=== PATIENT | female | born 1945 | race Caucasian/White ===

== ENCOUNTER 2025-05-01 11:25 | Emergency (ER) | payer MEDICARE, SELFPAY ==
[2025-05-01 11:29] VITALS: BP 137/42; PULSE 57; TEMP 36.6; O2SAT 96; BMI 39.0
--- NOTE | 2025-05-01 11:41 | ED.GENADUL1 ---
HPI HPI - General Adult General Chief complaint: Urogenital-Female Stated complaint: BLOODY URINE Time Seen by Provider: 05/01/25 11:39 Source: patient Mode of arrival: ambulance Limitations: no limitations History of Present Illness HPI narrative: 80-year-old female presents for possible blood in her urine. There was blood in the front of her brief beginning today. She has not been passing any blood in her stool. She has had a hysterectomy. She does not complain of abdominal pain. Related Data Home Medications ?Medication ?Instructions ?Recorded ?Confirmed acetaminophen 325 mg capsule 650 mg PO Q6H PRN pain 05/01/25 05/01/25 allopurinol 300 mg tablet 300 mg PO .QD 05/01/25 05/01/25 amiodarone 200 mg tablet 200 mg PO Q12H 05/01/25 05/01/25 apixaban 5 mg tablet (Eliquis) 5 mg PO Q12H 05/01/25 05/01/25 atorvastatin 80 mg tablet 80 mg PO .QHS 05/01/25 05/01/25 clopidogrel 75 mg tablet 75 mg PO QDAY 05/01/25 05/01/25 cyanocobalamin (vitamin B-12) 1,000 mcg PO DAILY 05/01/25 05/01/25 1,000 mcg capsule ferrous sulfate 325 mg (65 mg 325 mg PO DAILY 05/01/25 05/01/25 iron) tablet (FeroSul) furosemide 20 mg tablet 20 mg PO DAILY 05/01/25 05/01/25 hydrocodone 5 mg-acetaminophen 325 1 tab PO BID PRN pain 05/01/25 05/01/25 mg tablet insulin degludec 100 unit/mL (3 20 unit subcut .qhs 05/01/25 05/01/25 mL) subcutaneous pen (Tresiba FlexTouch U-100 insulin) isosorbide mononitrate 30 mg 30 mg PO .Q24 05/01/25 05/01/25 tablet,extended release 24 hr metoprolol tartrate 25 mg tablet 12.5 mg PO Q12H 05/01/25 05/01/25 ondansetron 4 mg disintegrating 4 mg PO Q6H PRN nausea and vomiting 05/01/25 05/01/25 tablet oxybutynin chloride 5 mg 5 mg PO .QD 05/01/25 05/01/25 tablet,extended release 24 hr pantoprazole 40 mg tablet,delayed 40 mg PO QDAY 05/01/25 05/01/25 release polyethylene glycol 3350 17 17 g PO QDAY PRN constipation 05/01/25 05/01/25 gram/dose oral powder (ClearLax) pregabalin 75 mg capsule 75 mg PO .COMPLEX 05/01/25 05/01/25 semaglutide 0.25 mg or 0.5 mg (2 0.5 mg subcut QWEEK 05/01/25 05/01/25 mg/1.5 mL) subcutaneous pen injector (Ozempic) torsemide 10 mg tablet 10 mg PO QDAY 05/01/25 05/01/25 Previous Rx's ?Medication ?Instructions ?Recorded cephalexin 500 mg capsule 500 mg PO TID 7 days #21 caps 05/01/25 Allergies Allergy/AdvReac Type Severity Reaction Status Date / Time codeine Allergy Palpitation Verified 05/01/25 11:29 s sulfamethoxazole (From AdvReac Abdominal Verified 05/01/25 11:29 Bactrim) Pain trimethoprim (From Bactrim) AdvReac Abdominal Verified 05/01/25 11:29 Pain Review of Systems ROS Narrative A ten point review of systems is negative except as noted above. PFSH PFSH Social History Little interest or pleasure in doing things: not at all Feeling down, depressed, or hopeless: not at all Exam Narrative Exam Narrative: Nurses note and vital signs reviewed and patient is not hypoxic. General: The patient appears well and in no apparent distress. Patient is resting comfortably on cart. Skin: Warm, dry, no pallor noted. There is no rash noted. Head: Normocephalic, atraumatic Eye: Normal conjunctiva, no drainage Ears, Nose, Mouth, and Throat: oral mucosa is moist. Nares patent. Cardiovascular: Regular Rate and Rhythm Respiratory: Patient is in no distress, no accessory muscle use, lungs are clear to auscultation, no wheezing, rales or rhonchi GI: Soft and nontender Musculoskeletal: No joint swelling Neurological: A&O x4, normal speech Psychiatric: Cooperative Constitutional Vital Signs, click to edit/add: Last Vital Signs Temp 98 F 05/01/25 11:29 Pulse 57 L 05/01/25 11:29 Resp 16 05/01/25 11:29 BP 137/42 L 05/01/25 11:29 Pulse Ox 96 05/01/25 11:29 O2 Del Method Room Air 05/01/25 11:29 Course Vital Signs Vital signs: Vital Signs Temperature 98 F 05/01/25 11:29 Pulse Rate 57 L 05/01/25 11:29 Respiratory Rate 16 05/01/25 11:29 Blood Pressure 137/42 L 05/01/25 11:29 Pulse Oximetry 96 05/01/25 11:29 Oxygen Delivery Method Room Air 05/01/25 11:29 Temperature 98 F 05/01/25 11:29 Pulse Rate 57 L 05/01/25 11:29 Respiratory Rate 16 05/01/25 11:29 Blood Pressure 137/42 L 05/01/25 11:29 Pulse Oximetry 96 05/01/25 11:29 Oxygen Delivery Method Room Air 05/01/25 11:29 Medical Decision Making MDM Narrative Medical decision making narrative: Urinalysis shows UTI. The patient does confirm that she had a complete hysterectomy. CAT scan does not show any acute findings. She was given IV Rocephin and will be discharged back to [facility] on Keflex. Treatment diagnosis and follow-up were discussed with the patient. I do not suspect vaginal bleeding. Creatinine is elevated at 3.1. Her baseline is 2.7. Her hemoglobin is at her baseline. Differential Diagnosis Differential Diagnosis: Vaginal bleeding, UTI, hemorrhagic cystitis Lab Data Lab results reviewed: Yes I reviewed the patient's lab results Labs: Lab Results 05/01/25 05/01/25 Range/Units 11:50 11:54 WBC 9.1 (4.0-11.0) 10^3/uL RBC 2.78 L (4.20-5.40) 10^6/uL Hgb 8.2 L (12.0-16.0) g/dL Hct 25.3 L (36.0-48.0) % MCV 91.0 (81.0-99.0) fL MCH 29.5 (26.7-34.0) pg MCHC 32.4 (29.9-35.2) g/dL RDW 18.2 H (11.0-15.0) % Plt Count 251 (150-450) 10^3/uL MPV 11.9 (9.5-13.5) fL Neut % (Auto) 58.2 (43.0-75.0) % Lymph % (Auto) 31.4 (20.5-60.0) % [place] % (Auto) 7.8 (1.7-12.0) % Eos % (Auto) 1.0 (0.9-7.0) % Baso % (Auto) 0.6 (0.2-2.0) % Neut # (Auto) 5.3 (1.4-6.5) 10^3/uL Lymph # (Auto) 2.9 (1.2-3.8) 10^3/uL [place] # (Auto) 0.7 (0.3-0.8) 10^3/uL Eos # (Auto) 0.1 (0.0-0.7) 10^3/uL Baso # (Auto) 0.1 (0.0-0.1) 10^3/uL Abs Immat Gran (auto) 0.09 H (0.00-0.03) 10^3/uL Imm/Tot Granulo (auto) 1.0 H (0.0-0.5) % Sodium 130 L (136-145) mmol/L Potassium 5.2 H (3.5-5.1) mmol/L Chloride 96 L (98-107) mmol/L Carbon Dioxide 29.1 (21.0-32.0) mmol/L Anion Gap 10.1 BUN 94.0 H* (7.0-18.0) mg/dL Creatinine 3.10 H (0.55-1.02) mg/dL Est GFR ( Amer) 18 L (>=60 mL/min/1.73m^2) Est GFR (Non-Af Amer) 14 L (>=60 mL/min/1.73m^2) BUN/Creatinine Ratio 30.3 Glucose 134 H (74-106) mg/dL Calcium 8.8 (8.5-10.1) mg/dL Urine Color Lt. yellow (YELLOW) Urine Clarity Sl cloudy (CLEAR) Urine pH 6.0 (5.0-9.0) Ur Specific [place] 1.010 (1.005-1.025) Urine Protein Negative (NEG/TRACE) mg/dL Urine Glucose (UA) Negative (NEGATIVE) mg/dL Urine Ketones Negative (NEGATIVE) mg/dL Urine Occult Blood Trace-i (NEGATIVE) Urine Nitrite Positive A (NEGATIVE) Urine Bilirubin Negative (NEGATIVE) Urine Urobilinogen 0.2 (0.2-1.0) EU/dL Ur Leukocyte Esterase Small A (NEGATIVE) Urine RBC 0-2 (0-2) #/HPF Urine WBC 5-10 A (NONE SEEN) #/HPF Ur Squamous Epith Cells Rare (NONE/RARE) #/LPF Urine Crystals None seen (None Seen) #/HPF Urine Bacteria Large A (NONE SEEN) #/HPF Urine Casts Seen A (NONE SEEN) #/LPF Hyaline Casts Rare Urine Mucus None seen (NONE SEEN) Ur Culture Indicated? Yes-[facility] [place] Imaging Data CT scan - abdomen: Radiologist's impression: ITS Impressions Abdomen/Pelvis CT 05/01/25 12:28 IMPRESSION: No bowel obstruction or obstructive uropathy. No free fluid or free air. No acute intra-abdominal pathology. Renal cortical atrophy is noted. There is a 2.3 cm right adrenal nodule. Uncomplicated colonic diverticula are noted. Impression dictated by: Luis Nascimento M.D. 05/01/2025 1:31 PM Dictation Location: [place] [address] Electronically authenticated by: [id number] Y Date: 05/01/2025 13:31 Discharge Plan Discharge Chief Complaint: Urogenital-Female Clinical Impression: Urinary tract infection Patient Disposition: Home, Self-Care Time of Disposition Decision: 13:49 Condition: Good Mode of Transportation: EMS Prescriptions / Home Meds: New cephalexin 500 mg capsule 500 mg PO TID 7 Days Qty: 21 0RF No Action allopurinol 300 mg tablet 300 mg PO .QD amiodarone 200 mg tablet 200 mg PO Q12H Eliquis 5 mg tablet 5 mg PO Q12H atorvastatin 80 mg tablet 80 mg PO .QHS clopidogrel 75 mg tablet 75 mg PO QDAY ferrous sulfate [FeroSul] 325 mg (65 mg iron) tablet 325 mg PO DAILY isosorbide mononitrate 30 mg tablet extended release 24 hr 30 mg PO .Q24 furosemide 20 mg tablet 20 mg PO DAILY metoprolol tartrate 25 mg tablet 12.5 mg PO Q12H polyethylene glycol 3350 [ClearLax] 17 gram/dose powder 17 g PO QDAY PRN (Reason: constipation) oxybutynin chloride 5 mg tablet extended release 24hr 5 mg PO .QD Ozempic 0.25 mg or 0.5 mg(2 mg/1.5 mL) pen injector 0.5 mg subcut QWEEK Rx Instructions: for 4 weeks ondansetron 4 mg tablet,disintegrating 4 mg PO Q6H PRN (Reason: nausea and vomiting) hydrocodone-acetaminophen 5-325 mg tablet 1 tab PO BID PRN (Reason: pain) pantoprazole 40 mg tablet,delayed release (DR/EC) 40 mg PO QDAY pregabalin 75 mg capsule 75 mg PO .COMPLEX Rx Instructions: 75 mg orally 3 xdaily, 150mg at bedtime; torsemide 10 mg tablet 10 mg PO QDAY insulin degludec [Tresiba FlexTouch U-100] 100 unit/mL (3 mL) insulin pen 20 unit subcut .qhs cyanocobalamin (vitamin B-12) 1,000 mcg capsule 1,000 mcg PO DAILY acetaminophen 325 mg capsule 650 mg PO Q6H PRN (Reason: pain) Print Language: Yoruba Instructions: Urinary Tract Infection in Women (ED) Referrals: [facility] [Primary Care Provider, Unknown] - 1 week
[2025-05-01 12:01] LABS: Glucose Urine UA NEGATIVE (NEGATIVE)
[2025-05-01 12:02] LABS: Hematocrit 25.3 % (36.0-48.0); Hemoglobin 8.2 g/dL (12.0-16.0); Immature Granulocytes Abs Auto 0.09 10^3/uL (0.00-0.03); Immature Granulocytes Pct Auto 1.0 % (0.0-0.5); Lymphocytes Absolute Auto 2.9 10^3/uL (1.2-3.8); Mean Corpuscular HGB Conc 32.4 g/dL (29.9-35.2); Mean Corpuscular Hemoglobin 29.5 pg (26.7-34.0); Mean Corpuscular Volume 91.0 fL (81.0-99.0); Platelet Count 251 10^3/uL (150-450); Red Blood Count 2.78 10^6/uL (4.20-5.40); White Blood Count 9.1 10^3/uL (4.0-11.0)
--- NOTE | 2025-05-01 12:02 | PC.NURSE ---
pt currently in [place] for a recent fall and a subdural hematoma to her head. pt is AxOx4. Fall was 04/14. Noticed blood in brief since this morning when aids were helping her change.
[2025-05-01 12:11] LABS: Anion Gap 10.1; Calcium 8.8 mg/dL (8.5-10.1); Carbon Dioxide 29.1 mmol/L (21.0-32.0); Chloride 96 mmol/L (98-107); Estimated GFR (African America 18 (>=60 mL/min/1.73m^2); Estimated GFR (Non-African Ame 14 (>=60 mL/min/1.73m^2); Glucose 134 mg/dL (74-106); Potassium 5.2 mmol/L (3.5-5.1); Sodium 130 mmol/L (136-145)
[2025-05-01 12:14] LABS: Blood Urea Nitrogen 94.0 mg/dL (7.0-18.0)
[2025-05-01 12:17] LABS: Cast Seen? SEEN #/LPF (NONE SEEN); Crystals Seen? None Seen #/HPF (None Seen); Urine Culture Indicated YES-FRMC
--- NOTE | 2025-05-01 12:28 | CT_ITS ---
The [address] [address] Patient Name: MACY ACHARYA MRN: [id number] date: 1945 Sex: F Assigned Patient Location: ER Current Patient Location: ER Accession/Order Number: [id number] Exam Date: 05/01/2025 13:19 Report Date: 05/01/2025 13:31 At the request of: SHAYNA GUERRA MD Procedure: CT abdomen pelvis wo con CT abdomen pelvis wo con 05/01/2025 12:47 PM SIGNS AND SYMPTOMS: Vaginal bleeding, hematuria TECHNIQUE: Multidetector ct axial images of the abdomen and pelvis were obtained without IV contrast. Multiplanar reformats were performed and reviewed to further define anatomy and possible pathology. CT was performed with one or more of the following dose reduction techniques: Automated exposure control, adjustment of the mA and/or kV according to patient size, or use of iterative reconstruction technique. COMPARISON: None. FINDINGS: Lower Chest: Atherosclerotic changes are noted in the coronary arteries and thoracic aorta. There is an atelectasis in the lung bases. ABDOMEN: Liver: Calcified granulomas are noted in the liver. Bile Ducts: Normal caliber. Gallbladder: Previously removed. Pancreas: Within normal limits. Spleen: Calcified granulomas are present in the spleen. Adrenals: There is a 2.3 cm right adrenal nodule. Kidneys: Renal cortical atrophy is noted. Vascular calcifications are noted in the renal pelvis bilaterally. Pelvis: Reproductive Organs: No pelvic masses. Ureters: Within normal limits. Bladder: Within normal limits. Bowel: Uncomplicated colonic diverticula are noted. Mesenteric Lymph Nodes: No enlarged mesenteric lymph nodes. Peritoneum: No ascites or free air, no fluid collection. Vessels: Atherosclerotic changes are noted in the abdominal aorta and its branches. Retroperitoneum: Within normal limits. Abdominal Wall: Postoperative changes are noted suggesting prior hernia repair along the ventral wall of the lower abdomen. Bones: Degenerative changes are noted in the thoracolumbar spine. Degenerative changes are noted in the hips and sacral iliac joints. CT/CT abdomen pelvis wo con IMPRESSION: No bowel obstruction or obstructive uropathy. No free fluid or free air. No acute intra-abdominal pathology. Renal cortical atrophy is noted. There is a 2.3 cm right adrenal nodule. Uncomplicated colonic diverticula are noted. Impression dictated by: Luis Nascimento M.D. 05/01/2025 1:31 PM Dictation Location: [place] [address] Electronically authenticated by: [id number] Y Date: 05/01/2025 13:31
== END 2025-05-01 15:40 | disposition home or self-care (01) ==
PROVIDERS: Emergency Provider Emergency Medicine
DX: N39.0 Urinary tract infection, site not specified (principal); Z90.710 Acquired absence of both cervix and uterus
CPT/HCPCS: 36415; 74176; 80048; 81001; 85025; 87086; 87088; 87186; 96365; 99285; J0696

== ENCOUNTER 2025-05-20 07:24 | Inpatient (IN) | payer MEDICARE, SELFPAY ==
--- OUTSIDE RECORDS SUMMARY | 2025-01-25 09:21 | XMS_ITS ---
Author Organization [facility] in [place] Address [address] [place] [address] Care Team Providers Care Career Services Manager Name Role Phone Lucy Hutchins Primary Care Provider Unavail Triston Spears Chaim [phone] REASON FOR VISIT medication Refill Medications Medication SIG (Take, Route, Frequency, Duration) Notes Start Date End Date Status Ferrous Sulfate 325 (65 Fe) MG 1 tablet Orally Once a day for 30 days 05/21/2022 Active Encounters Encounter Location Date Provider Diagnosis [facility] [place] [address] [place] [id number] 01/25/2025 Triston Ramirez Chronic kidney disease, stage 4 (severe) N18.4 Assessments Encounter Date Diagnosis (ICD Code) Assessment Notes Treatment Notes Treatment Clinical Notes Section Notes 01/25/2025 Chronic kidney disease, stage 4 (severe) (ICD-10 - N18.4) Plan Of Treatment Medication Medication Name Sig Start Date Stop Date Notes Ferrous Sulfate 325 (65 Fe) MG 1 tablet Orally Once a day for 30 days 05/21/2022 Progress Notes * Irma CACERES LDOB: [birth year] (79 yo F)Acc No.[id number]:01/25/2025 Patient: Irma CHACON Angela :1945 A ge:79 Y S ex:Female Address:[address] [place] [address], [phone] * Refills Refill Ferrous Sulfate Tablet, 325 (65 Fe) MG, Orally, 30, 1 tablet, Once a day, 30 days, Refills=5 * true * Date: Generated for Morgan johnson/Medardo/Panda on: 0 05/20/2025 07:32 AM EDT
--- OUTSIDE RECORDS SUMMARY | 2025-05-02 20:05 | XMS_ITS | Encounter Summary ---
Author Organization [employer] Address [facility]-[id number] [address] [place] [address] Care Team Providers Care Lead Project Engineer Name Role Phone Dagmar Hernandez Primary Care Pro vider Reason for Referral * Misc (Routine) - Pending Review Specialty Diagnoses / Procedures Referred By Contac t Referred To Contact Procedures Wound care (specify) Marylin Dewey APRN-CNP [address] [place] [address] Phone: tel: fax: Referral ID Status Reason Start Date Expiration Date V isits Requested Visits Authorized [id number] Pending Review 05/11/2025 05/11/2026 1 1 * Misc (Routine) - Pending Review Specialty Diagnoses / Procedures Referred By Contac t Referred To Contact Procedures Wound care (specify) Marylin Dewey APRN-CNP [address] [place] [address] Phone: tel: fax: Referral ID Status Reason Start Date Expiration Date V isits Requested Visits Authorized [id number] Pending Review 05/11/2025 05/11/2026 1 1 * Misc (Routine) - Pending Review Specialty Diagnoses / Procedures Referred By Jj t Referred To Contact Procedures Discharge follow-up Vandana John APRN-CNP [address] [place] [address] Phone: tel: fax: Referral ID Status Reason Start Date Expiration Date V isits Requested Visits Authorized [id number] Pending Review 05/11/2025 05/11/2026 1 1 * Misc (Routine) - Pending Review Specialty Diagnoses / Procedures Referred By Jj anthony Referred To Contact Diagnoses Urinary retention Stage 3b chronic kidney disease (CKD) ([facility]) Procedures Maintain indwelling urinary catheter Vandana John APRN-CNP [address], [address] [place] [address] Phone: tel: fax: Referral ID Status Reason Start Date Expiration Date V isits Requested Visits Authorized [id number] Pending Review 05/11/2025 05/11/2026 1 1 * Consultation (Routine) - Pending Review Specialty Diagnoses / Procedures Referred By Jj t Referred To Contact Diagnoses Urinary retention Type 2 diabetes mellitus with diabetic polyneuropathy, with long-term current use of insulin ([facility]) Vandana John APRN-CNP [address] [place] [address] Phone: tel: fax: Referral ID Status Reason Start Date Expiration Date V isits Requested Visits Authorized [id number] Pending Review 05/11/2025 05/11/2026 1 1 * Misc (Routine) - Pending Review Specialty Diagnoses / Procedures Referred By Contac t Referred To Contact Procedures Discharge Follow-Up Vandana John APRN-CNP [address], [address] [place] [address] Phone: tel: fax: Referral ID Status Reason Start Date Expiration Date V isits Requested Visits Authorized [id number] Pending Review 05/11/2025 05/11/2026 1 1 * Misc (Routine) - Pending Review Specialty Diagnoses / Procedures Referred By Contac t Referred To Contact Procedures Discharge Follow-Up Vandana John APRN-CNP [address], [address] [place] [address] Phone: tel: fax: Referral ID Status Reason Start Date Expiration Date V isits Requested Visits Authorized [id number] Pending Review 05/11/2025 05/11/2026 1 1 * Misc (Routine) - Pending Review Specialty Diagnoses / Procedures Referred By Contac t Referred To Contact Procedures Discharge Follow-Up Vandana John APRN-CNP [address] [place] [address] Phone: tel: fax: Referral ID Status Reason Start Date Expiration Date V isits Requested Visits Authorized [id number] Pending Review 05/11/2025 05/11/2026 1 1 * Misc (Routine) - Pending Review Specialty Diagnoses / Procedures Referred By Contac t Referred To Contact Diagnoses Urinary retention Procedures Follow-up with primary care provider Vandana John APRN-CNP [address] [place] [address] Phone: tel: fax: Referral ID Status Reason Start Date Expiration Date V isits Requested Visits Authorized [id number] Pending Review 05/11/2025 05/11/2026 1 1 * Misc (Routine) - Pending Review Specialty Diagnoses / Procedures Referred By Jj t Referred To Contact Procedures Adult diet Vandana John APRN-CNP [address] [place] [address] Phone: tel: fax: Referral ID Status Reason Start Date Expiration Date V isits Requested Visits Authorized [id number] Pending Review 05/11/2025 05/11/2026 1 1 * Occupational Therapy (Routine) - Pending Review Specialty Diagnoses / Procedures Referred By Jj t Referred To Contact Occupational Therapy Diagnoses Polyneuropathy Vandana John APRN-CNP [address] [place] [address] Phone: tel: fax: Referral ID Status Reason Start Date Expiration Date Visits Requested Visits Authorized [id number] Pending Review Specialty Services Required 05/11/2025 11/10/2025 12 12 * Physical Therapy (Routine) - Pending Review Specialty Diagnoses / Procedures Referred By Contac t Referred To Contact Rehabilitation Diagnoses Polyneuropathy Vandana John APRN-CNP [address] [place] [address] Phone: tel: fax: Referral ID Status Reason Start Date Expiration Date Visits Requested Visits Authorized [id number] Pending Review Specialty Services Required 05/11/2025 11/10/2025 12 12 * Consultation (Routine) - Pending Review Specialty Diagnoses / Procedures Referred By Jj t Referred To Contact Cardiology Diagnoses Paroxysmal atrial fibrillation ([facility]) ASCVD (arteriosclerotic cardiovascular disease) Vandana John APRN-CNP [address] [place] [address] Phone: tel: fax: [facility] [address] [address] Phone: tel: fax: Referral ID Status Reason Start Date Expiration Date Visits Requested Visits Authorized [id number] Pending Review Specialty Services Required 05/11/2025 05/11/2026 1 1 * Misc (Routine) - Pending Review Specialty Diagnoses / Procedures Referred By Jj t Referred To Contact Procedures Discharge Follow-Up Bethanie Marquez APRN-CNP [address] [place] [address] Phone: tel: fax: Referral ID Status Reason Start Date Expiration Date V isits Requested Visits Authorized [id number] Pending Review 05/07/2025 05/07/2026 1 1 * Consultation (Routine) - Pending Review Specialty Diagnoses / Procedures Referred By Jj t Referred To Contact Urology Diagnoses Urinary retention Bethanie Marquez APRN-CNP [address] [place] [address] Phone: tel: fax: Kayden Sun MD [address] [place] [address] [place] [address] Phone: tel: fax: Referral ID Status Reason Start Date Expiration Date Visits Requested Visits Authorized [id number] Pending Review Specialty Services Required 05/07/2025 05/07/2026 1 1 * Consultation (Routine) - Pending Review Specialty Diagnoses / Procedures Referred By Contac t Referred To Contact General Surgery Diagnoses Acute upper GI bleed Bethanie Marquez APRN-CNP [address] [place] [address] Phone: tel: fax: Kelvin Myles MD [address] [place] [address] Phone: tel: fax: Referral ID Status Reason Start Date Expiration Date Visits Requested Visits Authorized [id number] Pending Review Specialty Services Required 05/07/2025 05/07/2026 1 1 * Misc (Routine) - Pending Review Specialty Diagnoses / Procedures Referred By Contac t Referred To Contact Diagnoses Acute upper GI bleed Procedures Follow-up with primary care provider Bethanie Marquez APRN-CNP [address] [place] [address] Phone: tel: fax: Referral ID Status Reason Start Date Expiration Date V isits Requested Visits Authorized [id number] Pending Review 05/07/2025 05/07/2026 1 1 Reason for Visit * Reason Comments Weakness - Generalized Fatigue * Auth/Cert Specialty Diagnoses / Procedures Referred By Contac t Referred To Contact Diagnoses Weakness Acute upper GI bleed [facility] [address] [address] Phone: tel: fax: Referral ID Status Reason Start Date Expiration Date Visits Re quested Visits Authorized [id number] 1 1 Encounter Details Date Type Department Care Team (Latest Contact Info) Description 05/02/2025 8:05 PM EDT - 05/11/2025 3:00 PM EDT Hospital Encounter [facility] [address] [address] Yvette Watson, DO [address] [facility] [address] Jose Balderas MD [address] [facility] [address] [place] [id number] Laina Rome MD [address] [facility] [address] [place], [place] [id number] Wesly Morse MD [address], [facility] [address] [place] [address] Acute upper GI bleed (Primary Dx); ERNESTINE (acute kidney injury); Hyperkalemia; Transaminitis; Urinary retention; Vitamin B12 deficiency; Polyneuropathy; Stage 3b chronic kidney disease (CKD) ([facility]); Paroxysmal atrial fibrillation ([facility]); ASCVD (arteriosclerotic cardiovascular disease); Type 2 diabetes mellitus with diabetic polyneuropathy, with long-term current use of insulin ([facility]) Discharge Disposition: Half-Way Facility-Medicare Cert Social History Tobacco Use Types Packs/Day Years Used Date Smoking Tobacco: Former Cigarettes 0.5 10 1 975 - 1984 Smokeless Tobacco: Never Alcohol Use Standard Drinks/Week Comments Not Currently 0 (1 standard drink = 0.6 oz pur e alcohol) [facility] Utilities Answer Date Recorded In the past 12 months has [employer], gas, oil, or water [employer] threatened to shut off services in your home? No 05/03/2025 AUDIT-C Answer Date Recorded Q1: How often do you have a drink containing alcohol? Never 04/08/2025 Q2: How many drinks containi ng alcohol do you have on a typical day when you are drinking? Patient does not drink Q3: How often do you have si x or more drinks on one occasion? Never 04/08/2025 Overall Financial Resource Strain (CARDIA) Answe r Date Recorded How hard is it for you to pa y for the very basics like food, housing, medical care, and heating? Somewhat hard 05/02/2025 PHQ-2 Answer Date Recorded Total Score 2 04/08/2025 Exercise Vital Sign Answer Date Recorde d On average, how many days pe r week do you engage in moderate to strenuous exercise (like a brisk walk)? 0 days 09/19/2024 On average, how many minutes do you engage in exercise at this level? 0 min 09/19/2024 PRAPARE - Transportation Answer Date Re corded In the past 12 months, has l ack of transportation kept you from medical appointments or from getting medications? Yes 11/2024 In the past 12 months, has l ack of transportation kept you from meetings, work, or from getting things needed for daily living? Yes 05/02/2025 Housing Instability Answer Date Recorde d Are you worried or concerned that in the next two months you may not have stable housing that you own, rent or stay in as a part of a household? No 05/02/2025 Childcare Answer Date Recorded Childcare Unknown 03/11/2019 Employment Answer Date Recorded Employment Unknown 03/11/2019 Hunger Screening Answer Date Recorded Within the past 12 months we worried whether our food would run out before we got money to buy more. Never True 05/03/2025 Within the past 12 months th e food we bought just didn't last and we didn't have money to get more. Never True 05/03/2025 Purpose - Life Answer Date Recorded Purpose and direction in life Unknown Comments No Sex and Gender Information Value Date Recorded Sex Assigned at Not on file Legal Sex Female 11:23 AM EDT Gender Identity Not on file Sexual Orientation Not on file documented as of this encounter Last Filed Vital Signs Vital Sign Reading Time Taken Comments Blood Pressure 148/61 05/11/2025 11:46 AM EDT Pulse 56 05/11/2025 11:46 AM EDT Temperature 36.6 C (97.8 F) 05/11/2025 11:46 AM EDT Respiratory Rate 18 05/11/2025 11:4 6 AM EDT Oxygen Saturation 99% 05/11/2025 11: 46 AM EDT Inhaled Oxygen Concentration - - Weight 94.8 kg (208 lb 14.4 oz) 05/09/2025 5:00 AM EDT Height 157.5 cm (5' 2 ) 05/05/2025 1:36 PM EDT Body Mass Index 38.21 05/05/2025 1:36 PM EDT documented in this encounter Functional Status documented as of this encounter Discharge Summaries * Wesly Morse MD - 05/11/2025 10:44 AM EDT Images from the original note were not included. [facility] [address] [place] [id number] Hospital Medicine Discharge Summary Patient: Irma Caceres Date of : 1945 Room: Encounter date: 05/11/25 Hospital Day: 10 DATE OF ADMISSION: 05/02/2025 DATE OF DISCHARGE:05/11/2025 DISCHARGE DIAGNOSES Principal Problem: Acute upper GI bleed Active Problems: Hypertension Type 2 diabetes mellitus with diabetic polyneuropathy, with long-term current use of insulin ([facility]) Vitamin B12 deficiency Hyperlipidemia Hyperkalemia Weakness Paroxysmal atrial fibrillation ([facility]) Iron deficiency anemia due to chronic blood loss Vaginal bleeding Left lower lobe pulmonary infiltrate Acute kidney injury superimposed on stage 3b chronic kidney disease ([facility]) Pressure ulcer of left heel, stage 1 Dermatitis associated with moisture Acute on chronic combined systolic and diastolic congestive heart failure ([facility]) [employer]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 Biopsies were taken with a cold forceps for histology. Estimated blood loss was minimal. Findings: - Scattered diverticula were found in the sigmoid colon.- The exam was otherwise without abnormality EGD The examined duodenum was normal. Findings: - The esophagus was normal. - Multiple small fundicgland polyps with no bleeding and stigmata of recent bleeding were found in the gastric body and inthe gastric antrum. - A medium- sized, fungating, non-circumferential mass with no bleeding and no stigmata of recent bleeding was found in the gastric body. 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 Biopsies were taken with a cold forceps for histology. HOSPITAL COURSE SUMMARY Ms. Irma Caceres is a pleasant 80-year-old female who came in with complaints of fatigue. Patientwas recently discharged after having a fall from a urinary tract infection. Hemoglobin was 7.4 hematocrit 22.6. Patient was noted to have a left front scalp hematoma secondary to fall. There was alsonoted severe aortic iliac and mesenteric atherosclerotic changes. There was a concern around GI blee d as her occult was positive and she was having new black stool at home. Patient was admitted in had EGD and colonoscopy results are above. Blood thinners are on hold last dose was 05/02/[address] Protonix drip is okay to resume p.o. at discharge. H&H is stable awaiting gastric massnoted on EGD per pathology will need follow up with Dr. Myles at time of discharge vaginal bleeding i nitially abdomen and pelvis ultrasound completed unremarkable. Patient did have Flomax started in urology follow up will be needed as patient will be discharging with [facility]. Patient was also treated with antibiotics for left lower pneumonia while here. PT and OT seen recommended retirement facility and agreeable. Patient stayed over the weekend waiting for insurance approval. Stable to discharge to nursing facility will need close follow up with general surgeon swimmer and Urology. Multiple medication changes at time of discharge including Flomax urology referral decrease amiodarone to 200 mg daily per Cardiology if LFTs remain elevated will possibly need did discontinue Lasix 40 mg daily Eliquis stopped hold statin while LFTs are up decrease Lyrica dose PPI b.I.d. for 5 moredays then decrease to daily general surgery referral to follow up on EGD [facility] referral to follow up on urinary retention cardiology referral to follow up on multiple medication changes CBC CMP in 1 week PT OT and Nephrology 1-2 weeks. Did check venous Dopplers while here and there was were negative. Discuss plan with Cardiology and will do Plavix only until follow up on pathology from [facility]. Review of Systems Constitutional: Positive for malaise/fatigue. Negative for chills, decreased appetite, diaphoresis and fever. HENT: Negative for congestion. Cardiovascular: Positive for leg swelling. Negative for chest pain, dyspnea on exertion and palpitations. Respiratory: Negative for cough, shortness of breath, sputum production and wheezing. Hematologic/Lymphatic: Bruises/bleeds easily. Skin: Positive for dry skin. Negative for poor wound healing. Musculoskeletal: Positive for arthritis. Negative for back pain and falls. Gastrointestinal: Negative for bloating, abdominal pain, dysphagia, nausea and vomiting. Genitourinary: Negative for bladder incontinence. Neurological: Positive for excessive daytime sleepiness and weakness. Negative for dizziness, paresthesias and tremors. Psychiatric/Behavioral: Negative for altered mental status and memory loss. Physical Exam Vitals (on RA) and nursing note reviewed. Constitutional: General: She is not in acute distress. Appearance: Normal appearance. She is obese. She is ill-appearing (pale). She is not toxic-appearing or diaphoretic. HENT: Head: Normocephalic and atraumatic. Nose: Nose normal. Mouth/Throat: Mouth: Mucous membranes are moist. Eyes: Pupils: Pupils are equal, round, and reactive to light. Cardiovascular: Rate and Rhythm: Normal rate and regular rhythm. Pulses: Normal pulses. Heart sounds: Normal heart sounds. Pulmonary: Effort: Pulmonary effort is normal. No respiratory distress. Breath sounds: Normal breath sounds. No wheezing or rales. Abdominal: General: Bowel sounds are normal. There is no distension. Palpations: Abdomen is soft. Tenderness: There is no abdominal tenderness. Musculoskeletal: Cervical back: Normal range of motion and neck supple. Right lower leg: Edema (2+) present. Left lower leg: Edema (2+) present. Skin: General: Skin is warm and dry. Capillary Refill: Capillary refill takes 2 to 3 seconds. Coloration: Skin is pale. Findings: Bruising (scattered) present. Comments: Scattered abrasions left side of face bruising Knee abrasions Right lower leg dressing intact got caught on w/c Neurological: Mental Status: She is alert and oriented to person, place, and time. Mental status is at baseline. Sensory: No sensory deficit. Motor: Weakness present. Gait: Gait normal. Psychiatric: Mood and Affect: Mood normal. Behavior: Behavior normal. Thought Content: Thought content normal. Judgment: Judgment normal. Sepsis suspected, no-not clinically evident at this time. Code Status: Full Code Labs Recent Results (from the past 48 hours) Bedside Glucose *Place/Obtain serum glucose if >500 per glucometer. Collection Time: 05/09/25 4:34 PM Result Value Ref Range Bedside Glucose (POC) 173 (H) 65 - 99 mg/dL Bedside Glucose *Place/Obtain serum glucose if >500 per glucometer. Collection Time: 05/09/25 8:51 PM Result Value Ref Range Bedside Glucose (POC) 122 (H) 65 - 99 mg/dL Comprehensive metabolic panel Collection Time: 05/10/25 5:32 AM Result Value Ref Range SODIUM 136 134 - 146 mmol/L POTASSIUM 4.6 3.5 - 5.0 mmol/L CHLORIDE 105 98 - 109 mmol/L CARBON DIOXIDE 24 22 - 32 mmol/L ANION GAP 7 5 - 15 mmol/L BLOOD UREA NITROGEN 32 (H) 5 - 27 mg/dL CREATININE 1.77 (H) 0.40 - 1.00 mg/dL GLUCOSE 110 (H) 65 - 99 mg/dL CALCIUM 8.6 8.5 - 10.5 mg/dL TOTAL PROTEIN 4.8 (L) 6.0 - 8.0 g/dL ALBUMIN 2.4 (L) 3.2 - 5.3 g/dL ALKALINE PHOSPHATASE 124 39 - 130 U/L AST 74 (H) <=41 U/L ALT 69 (H) <=31 U/L BILIRUBIN,TOTAL 0.8 0.3 - 1.2 mg/dL EGFR Non-Race Dependent 29 (L) >=60 ml/min/1.73sq.m Magnesium Collection Time: 05/10/25 5:32 AM Result Value Ref Range MAGNESIUM 1.8 1.8 - 2.6 mg/dL CBC auto differential Collection Time: 05/10/25 5:32 AM Result Value Ref Range WBC 4.5 4 - 11 x10E9/L RBC Count 2.59 (L) 3.8 - 5.2 X10E12/L Hemoglobin 7.5 (L) 11.7 - 15.5 g/dL Hematocrit 22.5 (L) 35 - 47 % MCV 87 80 - 100 fL MCH 29.1 27 - 34 pg MCHC 33.5 32 - 36 g/dL RDW 19.8 (H) 11.5 - 15 % Platelet Count 198 150 - 450 X10E9/L MPV 9.9 7 - 12 fL Neutrophils % 56.6 % Lymphocytes % 30.5 % Monocytes % 9.6 % Eosinophils % 2.2 % Basophils % 1.1 % Neutrophils Absolute (A) 2.6 1.5 - 6.6 10*3/uL Lymphocytes Absolute 1.4 1.0 - 3.5 10*3/uL Monocytes Absolute 0.4 0.0 - 0.9 10*3/uL Eosinophils Absolute 0.1 0.0 - 0.4 10*3/uL Basophils Absolute 0.0 0.0 - 0.2 10*3/uL Differential Type AUTOMATED DIFFERENTIAL Anti XA unfractionated heparin Collection Time: 05/10/25 5:32 AM Result Value Ref Range ANTI XA UFH 0.37 0.30 - 0.70 IU/mL B-type natriuretic peptide Collection Time: 05/10/25 5:32 AM Result Value Ref Range BNP 428 (H) <=100 pg/mL Bedside Glucose *Place/Obtain serum glucose if >500 per glucometer. Collection Time: 05/10/25 11:40 AM Result Value Ref Range Bedside Glucose (POC) 219 (H) 65 - 99 mg/dL Magnesium Collection Time: 05/10/25 4:00 PM Result Value Ref Range MAGNESIUM 2.3 1.8 - 2.6 mg/dL Bedside Glucose *Place/Obtain serum glucose if >500 per glucometer. Collection Time: 05/10/25 5:57 PM Result Value Ref Range Bedside Glucose (POC) 265 (H) 65 - 99 mg/dL Bedside Glucose *Place/Obtain serum glucose if >500 per glucometer. Collection Time: 05/10/25 9:22 PM Result Value Ref Range Bedside Glucose (POC) 135 (H) 65 - 99 mg/dL Comprehensive metabolic panel Collection Time: 05/11/25 4:37 AM Result Value Ref Range SODIUM 133 (L) 134 - 146 mmol/L POTASSIUM 4.5 3.5 - 5.0 mmol/L CHLORIDE 101 98 - 109 mmol/L CARBON DIOXIDE 25 22 - 32 mmol/L ANION GAP 7 5 - 15 mmol/L BLOOD UREA NITROGEN 34 (H) 5 - 27 mg/dL CREATININE 2.02 (H) 0.40 - 1.00 mg/dL GLUCOSE 110 (H) 65 - 99 mg/dL CALCIUM 8.6 8.5 - 10.5 mg/dL TOTAL PROTEIN 4.9 (L) 6.0 - 8.0 g/dL ALBUMIN 2.7 (L) 3.2 - 5.3 g/dL ALKALINE PHOSPHATASE 120 39 - 130 U/L AST 60 (H) <=41 U/L ALT 62 (H) <=31 U/L BILIRUBIN,TOTAL 0.8 0.3 - 1.2 mg/dL EGFR Non-Race Dependent 25 (L) >=60 ml/min/1.73sq.m Magnesium Collection Time: 05/11/25 4:37 AM Result Value Ref Range MAGNESIUM 2.0 1.8 - 2.6 mg/dL CBC auto differential Collection Time: 05/11/25 4:37 AM Result Value Ref Range WBC 3.7 (L) 4 - 11 x10E9/L RBC Count 2.72 (L) 3.8 - 5.2 X10E12/L Hemoglobin 7.9 (L) 11.7 - 15.5 g/dL Hematocrit 23.6 (L) 35 - 47 % MCV 87 80 - 100 fL MCH 29.2 27 - 34 pg MCHC 33.6 32 - 36 g/dL RDW 19.6 (H) 11.5 - 15 % Platelet Count 209 150 - 450 X10E9/L MPV 9.8 7 - 12 fL Neutrophils % 54.9 % Lymphocytes % 31.1 % Monocytes % 10.7 % Eosinophils % 2.2 % Basophils % 1.1 % Neutrophils Absolute (A) 2.0 1.5 - 6.6 10*3/uL Lymphocytes Absolute 1.1 1.0 - 3.5 10*3/uL Monocytes Absolute 0.4 0.0 - 0.9 10*3/uL Eosinophils Absolute 0.1 0.0 - 0.4 10*3/uL Basophils Absolute 0.0 0.0 - 0.2 10*3/uL Differential Type AUTOMATED DIFFERENTIAL Anti XA unfractionated heparin Collection Time: 05/11/25 4:37 AM Result Value Ref Range ANTI XA UFH 0.39 0.30 - 0.70 IU/mL Bedside Glucose *Place/Obtain serum glucose if >500 per glucometer. Collection Time: 05/11/25 8:44 AM Result Value Ref Range Bedside Glucose (POC) 98 65 - 99 mg/dL Bedside Glucose *Place/Obtain serum glucose if >500 per glucometer. Collection Time: 05/11/25 11:49 AM Result Value Ref Range Bedside Glucose (POC) 208 (H) 65 - 99 mg/dL Radiology Colonoscopy Report Result Date: 05/07/2025 Narrative: This order has been auto-finalized for image and report archival in PACs. *For full report details, please reach out to your physician. This image is visible to you in MyChart.* EGD Report Result Date: 05/05/2025 Narrative: This order has been auto-finalized for image and report archival in PACs. *For full report details, please reach out to your physician. This image is visible to you in MyChart.* Ultrasound abdomen limited Result Date: 05/05/2025 Narrative: Clinical history: Elevated transaminases Findings: Multiplanar sonography was performed of the right upper quadrant. Comparison: None. * Prior cholecystectomy. * Common bile duct measures:5.9 mm * No free fluid/ascites * Liver echotexture is echogenic. * Portal vein is patent with hepatopedal flow. * Pancreas obscured by bowel gas. No definite pancreatic ductal dilatation. * No right renal obstruction . Cortical thinning consistent with patient's age. Impression: * Unremarkable right upper quadrant ultrasound Finalized by Duke Bob MD on 05/05/2025 1:44 PM Ultrasound pelvic complete Result Date: 05/03/2025 Narrative: Pelvic ultrasound History:Vaginal bleeding Comparison: Findings: Transabdominal imaging was performed of the pelvis. Patient is status post hysterectomy and bilateral oophorectomy. No freefluid in the pelvis. No definite pelvic mass. Impression: * Unremarkable transabdominal ultrasound of the pelvis. Finalized by Duke Bob MD on 05/03/2025 12:[address] abdomen and pelvis without contrast Result Date: 05/02/2025 Narrative: CLINICAL INFORMATION: elevated enzymes TECHNIQUE: CT ABDOMEN AND PELVIS WO CONT CT images of the abdomen and pelvis are obtained. Images are acquired without contrast. This produces some limitation. Comparison is made prior exam dated April 04, 2023. Limited images lung bases grossly clear. No focal hepatic or splenic abnormality. Patient is postcholecystectomy. Kidneys appear somewhat atrophic. Severe aortoiliac and mesenteric atherosclerotic changes noted. Vessels not well evaluated with this exam. Bowel is nondistended. Although bile duct appears somewhat prominent, this may represent reservoir effect secondary to remote cholecystectomy. Osseous structures appear intact. IMPRESSION: Severe aortoiliac and mesenteric atherosclerotic changes. If this is of clinical concern, contrasted exam may be helpful. All CT scans at this facility use dose modulation, iterative reconstruction, and/or weight based dosing when appropriate to reduce radiation dose to as low as reasonably achi evable. Finalized by Edward Jha MD on 05/02/2025 11:[address] brain without contrast Result Date: 05/02/2025 Narrative: STUDY: CT HEAD WITHOUT CONTRAST CLINICAL HISTORY: Patient is feeling tired today. Recentfall. COMPARISON: 04/08/2025 TECHNIQUE: CT head was performed without contrast utilizing 2.5 mm axial reconstruction with images reviewed in bone and brain windows. Automated exposure control was utilized. FINDINGS: Noncontrast CT scan examination of the brain revealed mildly prominent ventricles, cortical sulci and sylvian fissures suggesting age-appropriate mild senescent atrophic changes. Thereis no evidence of mass, mass effect or midline shift. No evidence of intracranial bleeding. Incidental note is made of hyperostosis frontalis. Small left frontal scalp hematoma. Vascular calcifications. Evidence of prior bilateral cataract surgery IMPRESSION: 1. No evidence of an acute intracranialprocess. Age-appropriate senescent atrophic changes. Left frontal scalp hematoma. All CT scans at this facility use dose modulation, iterative reconstruction, and/or weight based dosing when appropria te to reduce radiation dose to as low as reasonably achievable. Finalized by Roxanne Sears MD on 05/02/2025 8:54 PM X-ray chest 1 view Result Date: 05/02/2025 Narrative: AP single view chest dated 05/02/2025 at 8:45 PM INDICATION: Fatigue. FINDINGS: Comparisonis 04/10/2025. Enlarged cardiac/pericardiac silhouette. Left lower lobe atelectasis and/or infiltrates, not significantly changed. No edema or effusion. No pneumothorax. IMPRESSION: 1. Persistent leftlower lobe infiltrates and/or atelectasis not well evaluated on portable film. 2. Enlarged cardiac/pericardiac silhouette. 3. No edema or effusion. Finalized by Joe Novoa MD on 05/02/2025 8:52 PM Vas venous duplex lwr bilateral Result Date: 04/13/2025 Narrative: Right: Lower extremity deep veins are compressible with spontaneous phasic spectral Doppler waveforms; superficial veins are compressible without intraluminal content. Left: Lower extremity deep veins are compressible with spontaneous phasic spectral Doppler waveforms; superficial veins are compressible without intraluminal content. Conclusions: BILATERAL: NO EVIDENCE of deep or superficial vein thrombosis of the lower extremities. Recommendations: Any questions prior to finalization, please call the reading physician during normal business hours at the phone number beside their name. Ultrasound retroperitoneal complete Result Date: 04/12/2025 Narrative: ULTRASOUND RETROPERITONEUM INDICATION: Urinary retention. COMPARISON: 06/07/2021. FINDINGS: Ultrasound evaluation of the kidneys and bladder was performed. Right kidney: 10.8 cm in maximal length. No collecting system dilatation, calculi, or contour deforming mass lesion. Left kidney: 11.4cm in maximal length. No collecting system dilatation, calculi, or contour deforming mass lesion. Parenchymal thinning both kidneys. Bladder: [Layering debris urinary bladder. Bladder volume: 367 mL.Only right ureteral jet seen. Patient unable to void. IMPRESSION: 1. No stone or collecting system dilatation. 2. Urinary bladder debris. Patient unable to void. Finalized by William Patton MD on 04/12/2025 1:29 PM Vas carotid duplex bilateral Result Date: 04/11/2025 Narrative: Right: Plaque with no significant ICA spectral Doppler or color flow disturbances; ICA 76 / 15 cm/sec. Antegrade vertebral artery flow. Left: Plaque with no significant ICA spectral Doppler or color flow disturbances; ICA 92 / 20 cm/sec. Antegrade vertebral artery flow. Conclusions: BILATERAL: Plaque without significant stenosis (<50%) of the internal carotid artery. Antegrade vertebral artery flow. MR brain without contrast Result Date: 04/10/2025 Narrative: EXAM: MRI BRAIN WITHOUT CONTRAST CLINICAL HISTORY: Subacute trauma, acute nausea, vomiting. TECHNIQUE: TECHNIQUE: Routine multiplanar multisequence MR imaging of the brain was performed without contrast. COMPARISONS: CT dated 04/08/2025 FINDINGS: There is a right tentorial subdural hematoma measuring up to 0.4 cm in thickness. There is no corresponding mass effect. There is a tiny subdural hematoma overlying the right temporal lobe measuring up to 0.4 cm in thickness. There is no corresponding mass effect. There is no shift of the midline structures and the basal cisterns are widelypatent. There is no evidence of ventricular outflow obstruction. There are mild nonaggressive whitematter changes of chronic ischemic small vessel disease. The hyman-white matter differentiation is preserved. The paranasal sinuses are well aerated. There is a small amount of nonaggressive fluid in the left mastoids. IMPRESSION: 1. Redemonstration of a right tentorial subdural hematoma measuring up to 0.4 cm in thickness. There is also a trace subdural hematoma overlying the right temporal lobe measuring up to 0.4 cm in thickness. There is no mass effect. Finalized by Steve Daigle MD on 04/10/2025 9:12 PM X-ray chest 1 view Result Date: 04/10/2025 Narrative: CHEST 1 VIEW HISTORY: Shortness of breath COMPARISON: 04/08/2025 IMPRESSION: * Left basilar opacities slightly more prominent than on previous, concerning for atelectasis or pneumonia. * Nopleural effusions, pulmonary edema or pneumothorax. * Unchanged cardiomediastinal silhouette. Finalized by Natanael Mayo MD on 04/10/2025 8:35 PM DISCHARGE INSTRUCTION Disposition: care home facility Condition:Stable Activity: activity as tolerated Diet: Adult nutrition supplements Adult diet Regular Texture Adult diet Follow up: DAGMAR HERNANDEZ APRN-DWIGHT within 7-[address] Myles RESIDENTIAL CAREGIVER Urology Labs/Imaging/Pathology: CMP and CBC one week Discharge Medications: Medication List START taking these medications Instructions Last Dose Given Next Dose Due furosemide 40 mg tablet Commonly known as: LASIX Take 1 tablet (40 mg total) by mouth daily for 30 days. tamsulosin 0.4 mg capsule Commonly known as: FLOMAX Take 1 capsule (0.4 mg total) by mouth nightly. CHANGE how you take these medications Instructions Last Dose Given Next Dose Due amiodarone 200 mg tablet Commonly known as: PACERONE What changed: when to take this Take 1 tablet (200 mg total) by mouth in the morning. atorvastatin 80 mg tablet Commonly known as: LIPITOR Start taking on: May 14, 2025 What changed: additional instructions These instructions start on May 14, 2025. If you are unsure what to do until then, ask your doctor or other care provider. Take 1 tablet (80 mg total) by mouth every morning. TAKE 1 TABLET (80 MG TOTAL) BY MOUTH IN THE MORNING Hold d/t transaminitis, may resume if cmp in 1 week is normalized clopidogreL 75 mg tablet Commonly known as: PLAVIX Start taking on: May 14, 2025 What changed: additional instructions These instructions start on May 14, 2025. If you are unsure what to do until then, ask your doctor or other care provider. Take 1 tablet (75 mg total) by mouth in the morning for 30 days. Hold until biopsy results receivedfrom EGD. pantoprazole 40 mg EC tablet Commonly known as: PROTONIX Start taking on: May 11, 2025 What changed: See the new instructions. Take 1 tablet (40 mg total) by mouth 2 (two) times a day for 5 days, THEN 1 tablet (40 mg total) every morning before breakfast for 30 days. pregabalin 75 mg capsule Commonly known as: LYRICA What changed: See the new instructions. Take 1 capsule (75 mg total) by mouth in the morning and 1 capsule (75 mg total) before bedtime. Doall this for 3 days. CONTINUE taking these medications Instructions Last Dose Given Next Dose Due ACCU-CHEK OLY PLUS TEST STRP strip Generic drug: blood sugar diagnostic allopurinoL 300 mg tablet Commonly known as: ZYLOPRIM Take 1 tablet (300 mg total) by mouth in the morning. cyanocobalamin 1,000 mcg tablet, sublingual Commonly known as: VITAMIN B12 Place 1 tablet (1,000 mcg total) under the tongue in the morning. ferrous sulfate 325 (65 FE) MG tablet Take 1 tablet (325 mg total) by mouth daily with breakfast. FREESTYLE CUONG 2 SENSOR kit Generic drug: flash glucose sensor insulin lispro 100 unit/mL insulin pen Commonly known as: HumaLOG Inject under the skin. Sliding scale based on meals and blood sugar metoprolol tartrate 25 mg tablet Commonly known as: LOPRESSOR TAKE 1 TABLET BY MOUTH TWICE DAILY (MORNING AND BEFORE BEDTIME) mupirocin 2 % ointment Commonly known as: BACTROBAN Apply 1 Application topically in the morning and 1 Application before bedtime. polyethylene glycol 17 gram packet Commonly known as: GLYCOLAX Take 17 g by mouth daily as needed (constipation). TRESIBA FLEXTOUCH U-100 100 unit/mL (3 mL) insulin pen Generic drug: insulin degludec Inject 20 Units under the skin nightly. STOP taking these medications acetaminophen 650 mg 8 hr tablet Commonly known as: TYLENOL ARTHRITIS apixaban 5 mg tablet Commonly known as: ELIQUIS isosorbide mononitrate 30 mg 24 hr tablet Commonly known as: IMDUR oxybutynin XL 5 mg 24 hr tablet Commonly known as: DITROPAN-XL OZEMPIC 0.25 mg or 0.5 mg(2 mg/1.5 mL) pen injector Generic drug: semaglutide torsemide 10 mg tablet Commonly known as: DEMADEX Where to Get Your Medications These medications were sent to [facility] [address] [place] [address] [place] [address] [address] furosemide 40 mg tablet pantoprazole 40 mg EC tablet You can get these medications from any pharmacy Bring a paper prescription for each of these medications pregabalin 75 mg capsule Information about where to get these medications is not yet available Ask your nurse or doctor about these medications amiodarone 200 mg tablet atorvastatin 80 mg tablet clopidogreL 75 mg tablet tamsulosin 0.4 mg capsule >30 minutes were spent on discharging this patient. DANIELLE Brantley 05/11/2025 3:42 PM [facility] Internal Medicine 7AM-7PM & 7PM-7AM: EpicChat or page through On-Call Finder. DANIELLE Brantley 05/11/25 [id number] Physician Attestation I, Wesyl Morse MD, personally performed a face to face diagnostic evaluation on this patient. I have reviewed the note authored by the advance practice provider including history, review of systems,physical examination,medical decision making and agree with the assessment and plan as written. I have seen and evaluated the patient, I have repeated the carrillo portions of the physical exam and concur with the CLAIRE findings. I have reviewed all laboratory findings and imaging reports/films. I agree with the plan as noted. Patient with CHF, GI mass, PAF, transaminitis was admitted with GI bleed, pneumonia. Per Cardiologyrecommendation patient was started on Plavix for PAF, amiodarone dose was decreased per Cardiology recommendation due to transaminitis. Patient's hemoglobin was stable during hospital stay patient is being discharged in stable condition. Recheck CBC in 1 week. Follow up with General surgery as outpatient for stomach mass biopsy report documented in this encounter Discharge Instructions * Discharge Instructions* Laina Rome MD - 05/07/2025 5:19 PM EDT Follow up with Dr Myles t0 discuss biopsy result Follow up with PCP and cardiology Continue to hold Eliquis until biopsy result * Attachments The following attachments cannot be sent through Care Everywhere. * GI bleed ??? Discharge instructions (Pakistani) documented in this encounter Medications at Time of Discharge allopurinol (ZYLOPRIM) 300 mg tablet Take 1 tablet (300 mg total) by mouth in the morning. cyanocobalamin (VITAMIN B12) 1,000 mcg tablet, sublingual Place 1 tablet (1,000 mcg total) under the tongue in the morning. 90 tablet 3 06/28/2022 ferrous sulfate 325 (65 FE) mg tablet Take 1 tablet (325 mg total) by mouth daily with breakfast. FREESTYLE CUONG 2 SENSOR kit 11/28/2022 insulin degludec (TRESIBA FLEXTOUCH U-100) 100 unit/mL (3 mL) insulin pen Inject 20 Units under the skin nightly. insulin lispro (HumaLOG) 100 unit/mL insulin pen Inject under the skin. Sliding scale based on meals and blood sugar 03/04/2022 ACCU-CHEK OLY PLUS TEST STRP strip 03/15/2023 amiodarone (PACERONE) 200 mg tablet Take 1 tablet (200 mg total) by mouth in the morning. 05/11/2025 atorvastatin (LIPITOR) 80 mg tablet Take 1 tablet (80 mg total) by mouth every morning. TAKE 1 TABLET (80 MG TOTAL) BY MOUTH IN THE MORNING Hold d/t transaminitis, may resume if cmp in 1 week is normalized 05/14/2025 clopidogreL (PLAVIX) 75 mg tablet Take 1 tablet (75 mg total) by mouth in the morning for 30 days. Hold until biopsy results received from EGD. 05/14/2025 5 furosemide (LASIX) 40 mg tablet Take 1 tablet (40 mg total) by mouth daily for 30 days. 30 tablet 05/11/2025 metoprolol tartrate (LOPRESSOR) 25 mg tablet TAKE 1 TABLET BY MOUTH TWICE DAILY (MORNING AND BEFORE BEDTIME) 180 tablet 3 10/19/2024 mupirocin (BACTROBAN) 2 % ointment Apply 1 Application topically in the morning and 1 Application before bedtime. 03/24/2025 pantoprazole (PROTONIX) 40 mg EC tablet Take 1 tablet (40 mg total) by mouth 2 (two) times a day for 5 days, THEN 1 tablet (40 mg total) every morning before breakfast for 30 days. 40 tablet 05/11/2025 5 polyethylene glycol (GLYCOLAX) 17 gram packet Take 17 g by mouth daily as needed (constipation). 04/12/2025 tamsulosin (FLOMAX) 0.4 mg capsule Take 1 capsule (0.4 mg total) by mouth nightly. 05/07/2025 pregabalin (LYRICA) 75 mg capsuleIndicatio ns:Polyneuropath y Take 1 capsule (75 mg total) by mouth in the morning and 1 capsule (75 mg total) before bedtime. Do all this for 3 days. 6 capsule 05/11/2025 5 documented as of this encounter Progress Notes * Wesly Morse MD - 05/10/2025 3:54 PM EDT Images from the original note were not included. [facility] [address] [facility] [id number] Hospital Medicine Progress Note Patient: Irma Caceres Date of : 1945 Room: PCP: DAGMAR HERNANDEZ, [employer] MANAGER Admission date: 05/02/2025 8:05 PM Encounter date: 05/10/25 Hospital Day: 9 SUBJECTIVE Interval History: Status: unchanged. No overnight events. Remains medically stable for d/c, d/c when SNF is ready unfortunately Dopplers were ordered over the weekend and are not done yet. Patient remains on heparin drip secondary to concern for blood clot.This will determine plan of care for discharge if patient has no blood clot will go on Plavix only if patient has a blood clot will need vascular input. Unfortunately will not be able to discharge today as we do not have this venous Dopplers patient feels overall well denies any chest pain chest pressure reports her shortness of breath is improved. Review of Systems Constitutional: Positive for fatigue. Negative for chills and fever. HENT: Negative for ear pain and sore throat. Eyes: Negative for pain and visual disturbance. Respiratory: Negative for cough and shortness of breath. Cardiovascular: Negative for chest pain and palpitations. Gastrointestinal: Negative for abdominal pain, blood in stool (occult negative) and vomiting. Genitourinary: Negative for dysuria and hematuria. Musculoskeletal: Positive for arthralgias. Negative for back pain. Skin: Negative for color change and rash. Neurological: Negative for seizures and syncope. All other systems reviewed and are negative. OBJECTIVE BP 139/47 Pulse 58 Temp 36.7 ??C (98 ??F) (Oral) Resp 16 Ht 157.5 cm (5' 2 ) Wt 94.8 kg (208 lb 14.4 oz) LMP (LMP Unknown) SpO2 99% BMI 38.21 kg/m?? Temp: [36.5 ??C (97.7 ??F)-36.8 ??C (98.2 ??F)] 36.7 ??C (98 ??F) Pulse: [43-67] 58 Resp: [16-18] 16 BP: (126-139)/(42-50) 139/47 SpO2: [97 %-99 %] 99 % O2 Device: None (Room air) O2 Flow Rate (L/min): [0 L/min] 0 L/min Intake/Output Summary (Last 24 hours) at 05/10/2025 1850 Last data filed at 05/10/2025 1759 Gross per 24 hour Intake 360 ml Output 750 ml Net -390 ml Physical Exam Vitals (on Ra) and nursing note reviewed. Constitutional: Appearance: She is well-developed. She is obese. HENT: Head: Normocephalic and atraumatic. Nose: Nose normal. Eyes: Pupils: Pupils are equal, round, and reactive to light. Cardiovascular: Rate and Rhythm: Normal rate and regular rhythm. Heart sounds: Normal heart sounds. No murmur heard. Pulmonary: Effort: Pulmonary effort is normal. No respiratory distress. Breath sounds: Normal breath sounds. No wheezing. Abdominal: General: Bowel sounds are normal. Palpations: Abdomen is soft. Tenderness: There is no abdominal tenderness. Musculoskeletal: General: Normal range of motion. Cervical back: Neck supple. Right lower leg: Edema (2+) present. Left lower leg: Edema (2+) present. Lymphadenopathy: Cervical: No cervical adenopathy. Skin: General: Skin is warm and dry. Capillary Refill: Capillary refill takes 2 to 3 seconds. Coloration: Skin is pale. Findings: Bruising (left face) present. No rash. Comments: Scattered abrasions left side of face bruising Knee abrasions Right lower leg dressing intact got caught on w/c Neurological: Mental Status: She is alert and oriented to person, place, and time. Cranial Nerves: No cranial nerve deficit. Medications Scheduled: [START ON 05/11/2025] amiodarone, 200 mg, oral, Daily clopidogreL, 75 mg, oral, Daily ferrous sulfate, 325 mg, oral, Daily with breakfast insulin glargine, 15 Units, subcutaneous, Nightly insulin lispro, 2-10 Units, subcutaneous, With meals and nightly metoprolol tartrate, 25 mg, oral, BID miconazole, 1 applicator, vaginal, Nightly pantoprazole, 40 mg, oral, BID AC pregabalin, 75 mg, oral, BID AND pregabalin, 150 mg, oral, Nightly sodium chloride, 3 mL, intravenous, Q12H HUNG Infusions: dextrose 5 % in water, 100 mL/hr heparin, 300-3,500 Units/hr, Last Rate: 1,000 Units/hr (05/10/25 1619) sodium chloride 0.9 %, 20 mL/hr As Needed: acetaminophen dextrose dextrose 5 % in water dextrose 50 % in water (D50W) glucagon (human recombinant) heparin (porcine) magnesium sulfate magnesium sulfate ondansetron sodium chloride sodium chloride sodium chloride 0.9 % Allergies: Codeine, Sulfa (sulfonamide antibiotics), Sulfamethoxazole- trimethoprim, and Trimethobenzamide Code Status: Full Code Labs Recent Results (from the past 24 hours) Bedside Glucose *Place/Obtain serum glucose if >500 per glucometer. Collection Time: 05/09/25 8:51 PM Result Value Ref Range Bedside Glucose (POC) 122 (H) 65 - 99 mg/dL Comprehensive metabolic panel Collection Time: 05/10/25 5:32 AM Result Value Ref Range SODIUM 136 134 - 146 mmol/L POTASSIUM 4.6 3.5 - 5.0 mmol/L CHLORIDE 105 98 - 109 mmol/L CARBON DIOXIDE 24 22 - 32 mmol/L ANION GAP 7 5 - 15 mmol/L BLOOD UREA NITROGEN 32 (H) 5 - 27 mg/dL CREATININE 1.77 (H) 0.40 - 1.00 mg/dL GLUCOSE 110 (H) 65 - 99 mg/dL CALCIUM 8.6 8.5 - 10.5 mg/dL TOTAL PROTEIN 4.8 (L) 6.0 - 8.0 g/dL ALBUMIN 2.4 (L) 3.2 - 5.3 g/dL ALKALINE PHOSPHATASE 124 39 - 130 U/L AST 74 (H) <=41 U/L ALT 69 (H) <=31 U/L BILIRUBIN,TOTAL 0.8 0.3 - 1.2 mg/dL EGFR Non-Race Dependent 29 (L) >=60 ml/min/1.73sq.m Magnesium Collection Time: 05/10/25 5:32 AM Result Value Ref Range MAGNESIUM 1.8 1.8 - 2.6 mg/dL CBC auto differential Collection Time: 05/10/25 5:32 AM Result Value Ref Range WBC 4.5 4 - 11 x10E9/L RBC Count 2.59 (L) 3.8 - 5.2 X10E12/L Hemoglobin 7.5 (L) 11.7 - 15.5 g/dL Hematocrit 22.5 (L) 35 - 47 % MCV 87 80 - 100 fL MCH 29.1 27 - 34 pg MCHC 33.5 32 - 36 g/dL RDW 19.8 (H) 11.5 - 15 % Platelet Count 198 150 - 450 X10E9/L MPV 9.9 7 - 12 fL Neutrophils % 56.6 % Lymphocytes % 30.5 % Monocytes % 9.6 % Eosinophils % 2.2 % Basophils % 1.1 % Neutrophils Absolute (A) 2.6 1.5 - 6.6 10*3/uL Lymphocytes Absolute 1.4 1.0 - 3.5 10*3/uL Monocytes Absolute 0.4 0.0 - 0.9 10*3/uL Eosinophils Absolute 0.1 0.0 - 0.4 10*3/uL Basophils Absolute 0.0 0.0 - 0.2 10*3/uL Differential Type AUTOMATED DIFFERENTIAL Anti XA unfractionated heparin Collection Time: 05/10/25 5:32 AM Result Value Ref Range ANTI XA UFH 0.37 0.30 - 0.70 IU/mL B-type natriuretic peptide Collection Time: 05/10/25 5:32 AM Result Value Ref Range BNP 428 (H) <=100 pg/mL Bedside Glucose *Place/Obtain serum glucose if >500 per glucometer. Collection Time: 05/10/25 11:40 AM Result Value Ref Range Bedside Glucose (POC) 219 (H) 65 - 99 mg/dL Magnesium Collection Time: 05/10/25 4:00 PM Result Value Ref Range MAGNESIUM 2.3 1.8 - 2.6 mg/dL Bedside Glucose *Place/Obtain serum glucose if >500 per glucometer. Collection Time: 05/10/25 5:57 PM Result Value Ref Range Bedside Glucose (POC) 265 (H) 65 - 99 mg/dL Radiology No results found. HOSPITAL PROBLEM LIST Principal Problem: Acute upper GI bleed Active Problems: Hypertension Type 2 diabetes mellitus with diabetic polyneuropathy, with long-term current use of insulin ([facility]) Vitamin B12 deficiency Hyperlipidemia Hyperkalemia Weakness Paroxysmal atrial fibrillation ([facility]) Iron deficiency anemia due to chronic blood loss Vaginal bleeding Left lower lobe pulmonary infiltrate Acute kidney injury superimposed on stage 3b chronic kidney disease ([facility]) Transaminitis ASSESSMENT & PLAN Acute upper GI bleed - Resolved - Eliquis placed on hold on 05/02 was placed on heparin drip over the weekend as there was a concern about possible blood clots with leg swelling -iron daily hemoglobin 7.5 hematocrit 22.5 - off Protonix drip continue with oral Protonix -general surgery consulted- EGD showing gastric mass, awaiting biopsy result. Colonoscopy-Segmental moderate inflammation was found in the sigmoid colon secondary to colitis. Biopsied. - Diverticulosis in the sigmoid colon. -CT ab/pelvis- Severe aortoiliac and mesenteric atherosclerotic changes, lipitor/thinners currentlyon hold - negative occult blood Bilateral lower leg swelling - waiting for venous Dopplers if negative discharge on Plavix only if positive will need vascular input -BNP 428 Acute urinary retention Stop Ditropan Start Flomax Urology follow up Discharge with [facility] and plan to do void trial in 1-2 days Vaginal bleeding - resolved -check ultrasound abdomen pelvis -unremarkable -swimmer consulted - do not feel this is swimmer etiology Left lower lobe infiltrate community acquired -recently treated - procalcitonin 4.03 this was trending down CRP 9.7 -no leukocytosis white blood cell count 4.5 -On RA -encourage cough and deep breathe -on room air Weakness/fatigue -PT and OT to see recommend facility Acute on Chronic CKD stage IIIB Deficiency anemia secondary to chronic disease -follows with Oncology did review last note from 2025 as to which she received Aranesp every 2 weeks for anemia -also received IV Feraheme on 03/05 and 613 -follows with Nephrology outpatient -low threshold for getting Nephrology involved -baseline kidney function does appear in the high 2 range 1.99 April 12 2.38 April 11 2.9 for April 10 was 3.0 April 08 -intake and output daily weights -bladder scan was greater than 600- marino placed -creatinine improved with marino continue with this and see Urology outpatient creatinine 1.77 today. - Avoid nephrotoxic medications -lasix 40mg X 1 Type 2 DM with diabetic polyneuropathy with manager intermediate insulin use -continue with Lantus and a.c. and HS Accu-Cheks with sliding scale coverage -dietitian to follow Coronary artery disease Paroxysmal AFib Hypertension Hyperlipidemia Chronic heart failure with preserved ejection fraction Status post PCI to right coronary artery during a setting of inferior STEMI on 08/23 -reviewed cardiology note from 03/10/2025 discussed with patient no more indication for PCI or further cardiac testing -continue on lunchroom monitor -continue on amiodarone and Lopressor -holding thinners for now until biopsy results returned from EGD. Follow up with PCP and Gen surgery -cardio consulted for med recs d/c elevated LFTs while on amio and bleeding on eliquis -doppler for lower legs, heparin gtt initiated on 05/08, if no bleeding start eliquis Saturday no eliquis with known mass -discussed with cardiology plavix daily Recent subdural hematoma discharged on 04/12 from [facility] -this was after a trip & fall -Neurosurgery was following -keppra was ordered for seven days for seizure prophylaxis -keep BP < 140 systolic -was ok to resume anticoagulation after 10 days of stable head CT (04/18) would have been ok to resume 04/28 -Ct brain stable left frontal scalp hematoma Chronic B12 deficiency -on Lyrica -follows with Neurology reviewed note from 04/06/2025 at that time it does look like Lyrica was changed to 75 mg 3 times a day and 150 mg at night as well as decrease Eliquis to 2.5 mg twice a day Obesity BMI 40 -dietitian to follow Transaminitis -trend suspect reactive -improving -hold statin, cmp 1 week -get acute hepatitis panel -negative -did have CT abdomen in ER Although bile duct appears somewhat prominent, this may represent reservoir effect secondary to remote cholecystectomy. -No focal hepatic or splenic abnormality on imaging -AST and ALT trending down 74/69 Hyperkalemia -resolved -improved Hyponatremia -resolved DC planning: SNF Patient waiting for venous Dopplers could not be done today. Patient is still on heparin drip if positive blood clot will need vascular involvement if negative blood clot can leave tomorrow on Plavix after speaking with Cardiology. Medically Ready for Discharge: Anticipated Tomorrow - Vandana John APRN-DWIGHT 05/10/25 6:50 PM [facility] 7AM-7PM & 7PM-7AM: EpicChat or page through On-Call Finder. DANIELLE Brantley 05/10/25 4325 Physician Attestation I, Wesly Morse MD, personally performed a face to face diagnostic evaluation on this patient. I have reviewed the note authored by the advance practice provider including history, review of systems,physical examination,medical decision making and agree with the assessment and plan as written. I have seen and evaluated the patient, I have repeated the carrillo portions of the physical exam and concur with the CLAIRE findings. I have reviewed all laboratory findings and imaging reports/films. I agree with the plan as noted. Patient denies nausea vomiting hematemesis abdominal pain chest pain or shortness for breath. Vitalsigns reviewed and stable. Recent labs reviewed creatinine 1.77, hemoglobin 7.5, AST 74 ALT 69. Amiodarone decreased to 100 mg p.o. daily per Cardiology recommendation due to transaminitis. Continue IV Lasix venous Doppler bilateral lower extremity pending. DC IV heparin drip patient is not a candidate for Eliquis due to gastric mass in GI bleed.Will start on Plavix per Cardiology recommendation.Monitor CBC, CMP * Laina Rome MD - 05/09/2025 9:57 AM EDT Images from the original note were not included. [facility] INTERNAL MEDICINE [facility] [address] [facility] [facility] [id number] Hospital Medicine Progress Note Patient: Irma Caceres Date of : 1945 Room: PCP: DANIELLE OLSON Admission date: 05/02/2025 8:05 PM Encounter date: 05/09/25 Hospital Day: 8 SUBJECTIVE Interval History: Status: unchanged. No overnight events. Remains medically stable for d/c, d/c when SNF is ready Review of Systems Constitutional: Positive for fatigue. Negative for chills and fever. HENT: Negative for ear pain and sore throat. Eyes: Negative for pain and visual disturbance. Respiratory: Negative for cough and shortness of breath. Cardiovascular: Negative for chest pain and palpitations. Gastrointestinal: Positive for blood in stool. Negative for abdominal pain and vomiting. Genitourinary: Negative for dysuria and hematuria. Musculoskeletal: Negative for arthralgias and back pain. Skin: Negative for color change and rash. Neurological: Negative for seizures and syncope. All other systems reviewed and are negative. OBJECTIVE BP 148/53 Pulse 52 Temp 36.3 ??C (97.4 ??F) (Temporal) Resp 16 Ht 157.5 cm (5' 2 ) Wt 94.8 kg (208 lb 14.4 oz) LMP (LMP Unknown) SpO2 97% BMI 38.21 kg/m?? Temp: [36.3 ??C (97.4 ??F)-37 ??C (98.6 ??F)] 36.3 ??C (97.4 ??F) Pulse: [52-82] 52 Resp: [16-19] 16 BP: (141-150)/(44-56) 148/53 SpO2: [93 %-97 %] 97 % O2 Device: None (Room air) Intake/Output Summary (Last 24 hours) at 05/09/2025 0957 Last data filed at 05/09/2025 0658 Gross per 24 hour Intake 878.25 ml Output 875 ml Net 3.25 ml Physical Exam Vitals and nursing note reviewed. Constitutional: Appearance: She is well-developed. She is obese. HENT: Head: Normocephalic and atraumatic. Nose: Nose normal. Eyes: Pupils: Pupils are equal, round, and reactive to light. Cardiovascular: Rate and Rhythm: Normal rate and regular rhythm. Heart sounds: Normal heart sounds. No murmur heard. Pulmonary: Effort: Pulmonary effort is normal. No respiratory distress. Breath sounds: Normal breath sounds. No wheezing. Abdominal: General: Bowel sounds are normal. Palpations: Abdomen is soft. Tenderness: There is no abdominal tenderness. Musculoskeletal: General: Normal range of motion. Cervical back: Neck supple. Lymphadenopathy: Cervical: No cervical adenopathy. Skin: General: Skin is warm and dry. Findings: Bruising (left face) present. No rash. Neurological: Mental Status: She is alert and oriented to person, place, and time. Cranial Nerves: No cranial nerve deficit. Medications Scheduled: amiodarone, 200 mg, oral, BID ferrous sulfate, 325 mg, oral, Daily with breakfast insulin glargine, 15 Units, subcutaneous, Nightly insulin lispro, 2-10 Units, subcutaneous, With meals and nightly metoprolol tartrate, 25 mg, oral, BID pantoprazole, 40 mg, oral, BID AC pregabalin, 75 mg, oral, BID AND pregabalin, 150 mg, oral, Nightly sodium chloride, 3 mL, intravenous, Q12H HUNG Infusions: dextrose 5 % in water, 100 mL/hr heparin, 300-3,500 Units/hr, Last Rate: 1,000 Units/hr (05/09/25 0658) sodium chloride 0.9 %, 20 mL/hr As Needed: acetaminophen dextrose dextrose 5 % in water dextrose 50 % in water (D50W) glucagon (human recombinant) heparin (porcine) magnesium sulfate magnesium sulfate ondansetron sodium chloride sodium chloride sodium chloride 0.9 % Allergies: Codeine, Sulfa (sulfonamide antibiotics), Sulfamethoxazole- trimethoprim, and Trimethobenzamide Code Status: Full Code Labs Recent Results (from the past 24 hours) APTT Collection Time: 05/08/25 11:08 AM Result Value Ref Range APTT 25 (L) 26 - 37 sec Extra Tubes Collection Time: 05/08/25 11:08 AM Narrative The following orders were created for panel order Extra Tubes. Procedure Abnormality Status --------- ------ PST TOP[[id number]] Final result Lavender Top[[id number]] Final result Please view results for these tests on the individual orders. PST TOP Collection Time: 05/08/25 11:08 AM Result Value Ref Range Extra Tube Auto Resulted Lavender Top Collection Time: 05/08/25 11:08 AM Result Value Ref Range Extra Tube Auto Resulted Bedside Glucose *Place/Obtain serum glucose if >500 per glucometer. Collection Time: 05/08/25 12:00 PM Result Value Ref Range Bedside Glucose (POC) 91 65 - 99 mg/dL Protime & INR Collection Time: 05/08/25 12:35 PM Result Value Ref Range PROTIME 10.9 9.8 - 13.2 sec INR 0.9 0.9 - 1.2 Bedside Glucose *Place/Obtain serum glucose if >500 per glucometer. Collection Time: 05/08/25 4:18 PM Result Value Ref Range Bedside Glucose (POC) 153 (H) 65 - 99 mg/dL Anti XA unfractionated heparin Collection Time: 05/08/25 7:40 PM Result Value Ref Range ANTI XA UFH 0.30 0.30 - 0.70 IU/mL Bedside Glucose *Place/Obtain serum glucose if >500 per glucometer. Collection Time: 05/08/25 9:06 PM Result Value Ref Range Bedside Glucose (POC) 163 (H) 65 - 99 mg/dL Anti XA unfractionated heparin Collection Time: 05/09/25 2:31 AM Result Value Ref Range ANTI XA UFH 0.39 0.30 - 0.70 IU/mL Comprehensive metabolic panel Collection Time: 05/09/25 2:31 AM Result Value Ref Range SODIUM 136 134 - 146 mmol/L POTASSIUM 4.6 3.5 - 5.0 mmol/L CHLORIDE 110 (H) 98 - 109 mmol/L CARBON DIOXIDE 25 22 - 32 mmol/L ANION GAP 1 (L) 5 - 15 mmol/L BLOOD UREA NITROGEN 35 (H) 5 - 27 mg/dL CREATININE 1.56 (H) 0.40 - 1.00 mg/dL GLUCOSE 137 (H) 65 - 99 mg/dL CALCIUM 8.4 (L) 8.5 - 10.5 mg/dL TOTAL PROTEIN 5.0 (L) 6.0 - 8.0 g/dL ALBUMIN 2.6 (L) 3.2 - 5.3 g/dL ALKALINE PHOSPHATASE 134 (H) 39 - 130 U/L AST 96 (H) <=41 U/L ALT 90 (H) <=31 U/L BILIRUBIN,TOTAL 0.3 0.3 - 1.2 mg/dL EGFR Non-Race Dependent 34 (L) >=60 ml/min/1.73sq.m Magnesium Collection Time: 05/09/25 2:31 AM Result Value Ref Range MAGNESIUM 1.7 (L) 1.8 - 2.6 mg/dL CBC auto differential Collection Time: 05/09/25 2:31 AM Result Value Ref Range WBC 4.2 4 - 11 x10E9/L RBC Count 2.72 (L) 3.8 - 5.2 X10E12/L Hemoglobin 7.9 (L) 11.7 - 15.5 g/dL Hematocrit 23.8 (L) 35 - 47 % MCV 88 80 - 100 fL MCH 29.0 27 - 34 pg MCHC 33.2 32 - 36 g/dL RDW 19.7 (H) 11.5 - 15 % Platelet Count 195 150 - 450 X10E9/L MPV 9.3 7 - 12 fL Neutrophils % 49.3 % Lymphocytes % 37.3 % Monocytes % 10.4 % Eosinophils % 2.2 % Basophils % 0.8 % Neutrophils Absolute (A) 2.1 1.5 - 6.6 10*3/uL Lymphocytes Absolute 1.6 1.0 - 3.5 10*3/uL Monocytes Absolute 0.4 0.0 - 0.9 10*3/uL Eosinophils Absolute 0.1 0.0 - 0.4 10*3/uL Basophils Absolute 0.0 0.0 - 0.2 10*3/uL Differential Type AUTOMATED DIFFERENTIAL Bedside Glucose *Place/Obtain serum glucose if >500 per glucometer. Collection Time: 05/09/25 7:47 AM Result Value Ref Range Bedside Glucose (POC) 132 (H) 65 - 99 mg/dL Radiology No results found. HOSPITAL PROBLEM LIST Principal Problem: Acute upper GI bleed Active Problems: Hypertension Type 2 diabetes mellitus with diabetic polyneuropathy, with long-term current use of insulin ([facility]) Vitamin B12 deficiency Hyperlipidemia Hyperkalemia Weakness Paroxysmal atrial fibrillation ([facility]) Iron deficiency anemia due to chronic blood loss Vaginal bleeding Left lower lobe pulmonary infiltrate Acute kidney injury superimposed on stage 3b chronic kidney disease ([facility]) ASSESSMENT & PLAN Acute upper GI bleed -hold blood thinners -last dose of eliquis was 8/3 -iron daily -Protonix drip -resume po at d/c -H&H every 8 hours -stable -general surgery consulted- EGD showing gastric mass, awaiting biopsy result. Colonoscopy-Segmental moderate inflammation was found in the sigmoid colon secondary to colitis. Biopsied. - Diverticulosis in the sigmoid colon. -CT ab/pelvis- Severe aortoiliac and mesenteric atherosclerotic changes, lipitor/thinners currentlyon hold Acute urinary retention Stop Ditropan Start Flomax Urology follow up Discharge with Marino and plan to do void trial in 1-2 days ??Vaginal bleeding -check ultrasound abdomen pelvis -unremarkable -swimmer consulted - do not feel this is swimmer etiology Left lower lobe infiltrate community acquired -recently treated -add inflammatory markers if those are within normal limits will not start antibiotics -no leukocytosis -On RA -encourage cough and deep breathe -on room air Weakness/fatigue -PT and OT to see Acute on Chronic CKD stage IIIB Deficiency anemia secondary to chronic disease -follows with Oncology did review last note from 2025 as to which she received Aranesp every 2 weeks for anemia -also received IV Feraheme on 03/05 and 613 -follows with Nephrology outpatient -low threshold for getting Nephrology involved -baseline kidney function does appear in the high 2 range 1.99 April 12 2.38 April 11 2.9 for April 10 was 3.0 April 08 -intake and output daily weights -bladder scan was greater than 600- marino placed -creatinine improved with marino Type 2 DM with diabetic polyneuropathy with nursing home insulin use -continue with Lantus and a.c. and HS Accu-Cheks with sliding scale coverage -dietitian to follow Coronary artery disease Paroxysmal AFib Hypertension Hyperlipidemia Chronic heart failure with preserved ejection fraction Status post PCI to right coronary artery during a setting of inferior STEMI on 08/23 -reviewed cardiology note from 03/10/2025 discussed with patient no more indication for PCI or further cardiac testing -continue on lunchroom monitor -continue on amiodarone and Lopressor -holding thinners for now until biopsy results returned from EGD. Follow up with PCP and Gen surgery -cardio consulted for med recs d/c elevated LFTs while on amio and bleeding on eliquis -doppler for lower legs, heparin gtt initiated on 05/08, if no bleeding start eliquis Saturday Recent subdural hematoma discharged on 04/12 from [facility] -this was after a trip & fall -Neurosurgery was following -keppra was ordered for seven days for seizure prophylaxis -keep BP < 140 systolic -was ok to resume anticoagulation after 10 days of stable head CT (04/18) would have been ok to resume 04/28 -Ct brain stable left frontal scalp hematoma Chronic B12 deficiency -on Lyrica -follows with Neurology reviewed note from 04/06/2025 at that time it does look like Lyrica was changed to 75 mg 3 times a day and 150 mg at night as well as decrease Eliquis to 2.5 mg twice a day Obesity BMI 40 -dietitian to follow Transaminitis -trend suspect reactive -improving -hold statin, cmp 1 week -get acute hepatitis panel -negative -did have CT abdomen in ER Although bile duct appears somewhat prominent, this may represent reservoir effect secondary to remote cholecystectomy. -No focal hepatic or splenic abnormality on imaging Hyperkalemia -improved Hyponatremia -monitor closely was given fluids -improving -is on diuretics normally -urine osmol, serum osmol, urine sodium DC planning: SNF -did not leave d/t pending insurance at [facility] Medically Ready for Discharge: Anticipated in 2-4 Days DANIELLE Baig 05/09/2025 9:57 AM [facility] 7AM-7PM & 7PM-7AM: EpicChat or page through On-Call Finder. DANIELLE Baig 05/09/25 1129 I, Laina Rome MD, personally performed the face to face diagnostic evaluation on this patient. I have reviewed the CLAIRE's History, Exam, and MDM and agree with the assessment and plan as written. I have reviewed all laboratory findings and imaging reports/films. IV heparin initiated yesterday, monitor Hb If Hb remains stable, resume Eliquis Awaiting biopsy result Dr Laina Rome MD, MRCP 05/09/2025 1:43 PM * Laina Rome MD - 05/08/2025 10:48 AM EDT Images from the original note were not included. [facility] [address] [facility] [id number] Hospital Medicine Progress Note Patient: Irma Caecres Date of : 1945 Room: PCP: DAGMAR HERNANDEZ, ESTIMATOR AND DRAFTER SUPERVISOR-[employer]ADEMIC AFFA[employer] MANAGER Admission date: 05/02/2025 8:05 PM Encounter date: 05/08/25 Hospital Day: 7 SUBJECTIVE Interval History: Status: unchanged. No overnight events. Remains medically stable for d/c, d/c when SNF is ready Review of Systems Constitutional: Positive for fatigue. Negative for chills and fever. HENT: Negative for ear pain and sore throat. Eyes: Negative for pain and visual disturbance. Respiratory: Negative for cough and shortness of breath. Cardiovascular: Negative for chest pain and palpitations. Gastrointestinal: Positive for blood in stool. Negative for abdominal pain and vomiting. Genitourinary: Negative for dysuria and hematuria. Musculoskeletal: Negative for arthralgias and back pain. Skin: Negative for color change and rash. Neurological: Negative for seizures and syncope. All other systems reviewed and are negative. OBJECTIVE BP 139/56 Pulse 63 Temp 36.9 ??C (98.5 ??F) (Oral) Resp 18 Ht 157.5 cm (5' 2 ) Wt 94.8 kg(208 lb 15.9 oz) LMP (LMP Unknown) SpO2 97% BMI 38.23 kg/m?? Temp: [36.1 ??C (96.9 ??F)-36.9 ??C (98.5 ??F)] 36.9 ??C (98.5 ??F) Pulse: [61-68] 63 Resp: [11-18] 18 BP: (130-172)/(47-71) 139/56 SpO2: [97 %-100 %] 97 % O2 Device: None (Room air) O2 Flow Rate (L/min): [0 L/min] 0 L/min Intake/Output Summary (Last 24 hours) at 05/08/2025 1048 Last data filed at 05/08/2025 0845 Gross per 24 hour Intake 120 ml Output 900 ml Net -780 ml Physical Exam Vitals and nursing note reviewed. Constitutional: Appearance: She is well-developed. She is obese. HENT: Head: Normocephalic and atraumatic. Nose: Nose normal. Eyes: Pupils: Pupils are equal, round, and reactive to light. Cardiovascular: Rate and Rhythm: Normal rate and regular rhythm. Heart sounds: Normal heart sounds. No murmur heard. Pulmonary: Effort: Pulmonary effort is normal. No respiratory distress. Breath sounds: Normal breath sounds. No wheezing. Abdominal: General: Bowel sounds are normal. Palpations: Abdomen is soft. Tenderness: There is no abdominal tenderness. Musculoskeletal: General: Normal range of motion. Cervical back: Neck supple. Lymphadenopathy: Cervical: No cervical adenopathy. Skin: General: Skin is warm and dry. Findings: Bruising (left face) present. No rash. Neurological: Mental Status: She is alert and oriented to person, place, and time. Cranial Nerves: No cranial nerve deficit. Medications Scheduled: amiodarone, 200 mg, oral, BID ferrous sulfate, 325 mg, oral, Daily with breakfast insulin glargine, 15 Units, subcutaneous, Nightly insulin lispro, 2-10 Units, subcutaneous, With meals and nightly metoprolol tartrate, 25 mg, oral, BID pantoprazole, 40 mg, oral, BID AC pregabalin, 75 mg, oral, BID AND pregabalin, 150 mg, oral, Nightly sodium chloride, 3 mL, intravenous, Q12H HUNG Infusions: dextrose 5 % in water, 100 mL/hr sodium chloride 0.9 %, 20 mL/hr As Needed: acetaminophen dextrose dextrose 5 % in water dextrose 50 % in water (D50W) glucagon (human recombinant) magnesium sulfate magnesium sulfate ondansetron sodium chloride sodium chloride sodium chloride 0.9 % Allergies: Codeine, Sulfa (sulfonamide antibiotics), Sulfamethoxazole- trimethoprim, and Trimethobenzamide Code Status: Full Code Labs Recent Results (from the past 24 hours) Bedside Glucose *Place/Obtain serum glucose if >500 per glucometer. Collection Time: 05/07/25 1:12 PM Result Value Ref Range Bedside Glucose (POC) 105 (H) 65 - 99 mg/dL Bedside Glucose *Place/Obtain serum glucose if >500 per glucometer. Collection Time: 05/07/25 4:56 PM Result Value Ref Range Bedside Glucose (POC) 246 (H) 65 - 99 mg/dL Bedside Glucose *Place/Obtain serum glucose if >500 per glucometer. Collection Time: 05/07/25 8:48 PM Result Value Ref Range Bedside Glucose (POC) 186 (H) 65 - 99 mg/dL Comprehensive metabolic panel Collection Time: 05/08/25 5:17 AM Result Value Ref Range SODIUM 136 134 - 146 mmol/L POTASSIUM 4.1 3.5 - 5.0 mmol/L CHLORIDE 107 98 - 109 mmol/L CARBON DIOXIDE 23 22 - 32 mmol/L ANION GAP 6 5 - 15 mmol/L BLOOD UREA NITROGEN 36 (H) 5 - 27 mg/dL CREATININE 1.59 (H) 0.40 - 1.00 mg/dL GLUCOSE 58 (L) 65 - 99 mg/dL CALCIUM 8.3 (L) 8.5 - 10.5 mg/dL TOTAL PROTEIN 4.8 (L) 6.0 - 8.0 g/dL ALBUMIN 2.4 (L) 3.2 - 5.3 g/dL ALKALINE PHOSPHATASE 108 39 - 130 U/L AST 126 (H) <=41 U/L ALT 100 (H) <=31 U/L BILIRUBIN,TOTAL 0.6 0.3 - 1.2 mg/dL EGFR Non-Race Dependent 33 (L) >=60 ml/min/1.73sq.m Magnesium Collection Time: 05/08/25 5:17 AM Result Value Ref Range MAGNESIUM 1.8 1.8 - 2.6 mg/dL CBC auto differential Collection Time: 05/08/25 5:17 AM Result Value Ref Range WBC 4.9 4 - 11 x10E9/L RBC Count 2.63 (L) 3.8 - 5.2 X10E12/L Hemoglobin 7.7 (L) 11.7 - 15.5 g/dL Hematocrit 23.0 (L) 35 - 47 % MCV 88 80 - 100 fL MCH 29.3 27 - 34 pg MCHC 33.5 32 - 36 g/dL RDW 19.2 (H) 11.5 - 15 % Platelet Count 192 150 - 450 X10E9/L MPV 9.5 7 - 12 fL Neutrophils % 56.5 % Lymphocytes % 29.7 % Monocytes % 11.3 % Eosinophils % 1.7 % Basophils % 0.8 % Neutrophils Absolute (A) 2.8 1.5 - 6.6 10*3/uL Lymphocytes Absolute 1.5 1.0 - 3.5 10*3/uL Monocytes Absolute 0.6 0.0 - 0.9 10*3/uL Eosinophils Absolute 0.1 0.0 - 0.4 10*3/uL Basophils Absolute 0.0 0.0 - 0.2 10*3/uL Differential Type AUTOMATED DIFFERENTIAL Bedside Glucose *Place/Obtain serum glucose if >500 per glucometer. Collection Time: 05/08/25 7:51 AM Result Value Ref Range Bedside Glucose (POC) 70 65 - 99 mg/dL Radiology Colonoscopy Report Result Date: 05/07/2025 This order has been auto-finalized for image and report archival in PACs. *For full report details,please reach out to your physician. This image is visible to you in MyChart.* HOSPITAL PROBLEM LIST Principal Problem: Acute upper GI bleed Active Problems: Hypertension Type 2 diabetes mellitus with diabetic polyneuropathy, with long-term current use of insulin ([facility]) Vitamin B12 deficiency Hyperlipidemia Hyperkalemia Weakness Paroxysmal atrial fibrillation ([facility]) Iron deficiency anemia due to chronic blood loss Vaginal bleeding Left lower lobe pulmonary infiltrate Acute kidney injury superimposed on stage 3b chronic kidney disease ([facility]) ASSESSMENT & PLAN Acute upper GI bleed -hold blood thinners -last dose of eliquis was 05/02 -iron daily -Protonix drip -resume po at d/c -H&H every 8 hours -stable -general surgery consulted- EGD showing gastric mass, awaiting biopsy result. Colonoscopy-Segmental moderate inflammation was found in the sigmoid colon secondary to colitis. Biopsied. - Diverticulosis in the sigmoid colon. -CT ab/pelvis- Severe aortoiliac and mesenteric atherosclerotic changes, lipitor/thinners currentlyon hold Acute urinary retention Stop Ditropan Start Flomax Urology follow up Discharge with [facility]ino and plan to do void trial in 1-2 days ??Vaginal bleeding -check ultrasound abdomen pelvis -unremarkable -swimmer consulted - do not feel this is swimmer etiology Left lower lobe infiltrate community acquired -recently treated -add inflammatory markers if those are within normal limits will not start antibiotics -no leukocytosis -On RA -encourage cough and deep breathe -on room air Weakness/fatigue -PT and OT to see Acute on Chronic CKD stage IIIB Deficiency anemia secondary to chronic disease -follows with Oncology did review last note from 2025 as to which she received Aranesp every 2 weeks for anemia -also received IV Feraheme on 03/05 and 613 -follows with Nephrology outpatient -low threshold for getting Nephrology involved -baseline kidney function does appear in the high 2 range 1.99 April 12 2.38 April 11 2.9 for April 10 was 3.0 April 08 -intake and output daily weights -bladder scan was greater than 600- marino placed -creatinine improved with marino Type 2 DM with diabetic polyneuropathy with manager intermediate insulin use -continue with Lantus and a.c. and HS Accu-Cheks with sliding scale coverage -dietitian to follow Coronary artery disease Paroxysmal AFib Hypertension Hyperlipidemia Chronic heart failure with preserved ejection fraction Status post PCI to right coronary artery during a setting of inferior STEMI on 08/23 -reviewed cardiology note from 03/10/2025 discussed with patient no more indication for PCI or further cardiac testing -continue on lunchroom monitor -continue on amiodarone and Lopressor -holding thinners for now until biopsy results returned from EGD. Follow up with PCP and Gen surgery -cardio consulted for med recs d/c elevated LFTs while on amio and bleeding on eliquis -doppler for lower legs, heparin gtt today if no bleeding start eliquis Saturday Recent subdural hematoma discharged on 04/12 from [facility] -this was after a trip & fall -Neurosurgery was following -keppra was ordered for seven days for seizure prophylaxis -keep BP < 140 systolic -was ok to resume anticoagulation after 10 days of stable head CT (04/18) would have been ok to resume 04/28 -Ct brain stable left frontal scalp hematoma Chronic B12 deficiency -on Lyrica -follows with Neurology reviewed note from 04/06/2025 at that time it does look like Lyrica was changed to 75 mg 3 times a day and 150 mg at night as well as decrease Eliquis to 2.5 mg twice a day Obesity BMI 40 -dietitian to follow Transaminitis -trend suspect reactive -improving -hold statin, cmp 1 week -get acute hepatitis panel -negative -did have CT abdomen in ER Although bile duct appears somewhat prominent, this may represent reservoir effect secondary to remote cholecystectomy. -No focal hepatic or splenic abnormality on imaging Hyperkalemia -improved Hyponatremia -monitor closely was given fluids -improving -is on diuretics normally -urine osmol, serum osmol, urine sodium DC planning: [facility] -did not leave d/t pending insurance at [facility] Medically Ready for Discharge: Anticipated in 2-4 Days Bethanie Marquez, ESTIMATOR AND DRAFTER SUPERVISOR-ACADEMIC AFFAIRS MANAGER 05/08/2025 10:48 AM [facility] Internal Medicine 7AM-7PM & 7PM-7AM: EpicChat or page through On-Call Finder. DANIELLE Baig 05/08/25 1051 ILaina MD, personally performed the face to face diagnostic evaluation on this patient. I have reviewed the CLAIRE's History, Exam, and MDM and agree with the assessment and plan as written. I have reviewed all laboratory findings and imaging reports/films. Dr Laina Rome MD, MRCP 05/08/2025 4:27 PM * Laina Rome MD - 05/07/2025 12:20 PM EDT Images from the original note were not included. [facility] INTERNAL MEDICINE [facility] [address] [place] [id number] Hospital Medicine Progress Note Patient: Irma Caceres Date of : 1945 Room: PCP: DANIELLE OLSON Admission date: 05/02/2025 8:05 PM Encounter date: 05/09/25 Hospital Day: 8 SUBJECTIVE Interval History: Status: unchanged. No overnight events. Review of Systems Constitutional: Positive for fatigue. Negative for chills and fever. HENT: Negative for ear pain and sore throat. Eyes: Negative for pain and visual disturbance. Respiratory: Negative for cough and shortness of breath. Cardiovascular: Negative for chest pain and palpitations. Gastrointestinal: Positive for blood in stool. Negative for abdominal pain and vomiting. Genitourinary: Negative for dysuria and hematuria. Musculoskeletal: Negative for arthralgias and back pain. Skin: Negative for color change and rash. Neurological: Negative for seizures and syncope. All other systems reviewed and are negative. OBJECTIVE BP 128/68 Pulse (!) 47 Temp 36.6 ??C (97.8 ??F) (Temporal) Resp 16 Ht 157.5 cm (5' 2 ) Wt94.8 kg (208 lb 14.4 oz) LMP (LMP Unknown) SpO2 98% BMI 38.21 kg/m?? Temp: [36.3 ??C (97.4 ??F)-37 ??C (98.6 ??F)] 36.6 ??C (97.8 ??F) Pulse: [47-82] 47 Resp: [16-19] 16 BP: (128-150)/(44-68) 128/68 SpO2: [93 %-98 %] 98 % O2 Device: None (Room air) Intake/Output Summary (Last 24 hours) at 05/09/2025 1220 Last data filed at 05/09/2025 0900 Gross per 24 hour Intake 1058.25 ml Output 875 ml Net 183.25 ml Physical Exam Vitals and nursing note reviewed. Constitutional: Appearance: She is well-developed. She is obese. HENT: Head: Normocephalic and atraumatic. Nose: Nose normal. Eyes: Pupils: Pupils are equal, round, and reactive to light. Cardiovascular: Rate and Rhythm: Normal rate and regular rhythm. Heart sounds: Normal heart sounds. No murmur heard. Pulmonary: Effort: Pulmonary effort is normal. No respiratory distress. Breath sounds: Normal breath sounds. No wheezing. Abdominal: General: Bowel sounds are normal. Palpations: Abdomen is soft. Tenderness: There is no abdominal tenderness. Musculoskeletal: General: Normal range of motion. Cervical back: Neck supple. Lymphadenopathy: Cervical: No cervical adenopathy. Skin: General: Skin is warm and dry. Findings: Bruising (left face) present. No rash. Neurological: Mental Status: She is alert and oriented to person, place, and time. Cranial Nerves: No cranial nerve deficit. Medications Scheduled: amiodarone, 200 mg, oral, BID ferrous sulfate, 325 mg, oral, Daily with breakfast furosemide, 40 mg, oral, Daily insulin glargine, 15 Units, subcutaneous, Nightly insulin lispro, 2-10 Units, subcutaneous, With meals and nightly metoprolol tartrate, 25 mg, oral, BID pantoprazole, 40 mg, oral, BID AC pregabalin, 75 mg, oral, BID AND pregabalin, 150 mg, oral, Nightly sodium chloride, 3 mL, intravenous, Q12H HUNG Infusions: dextrose 5 % in water, 100 mL/hr heparin, 300-3,500 Units/hr, Last Rate: 1,000 Units/hr (05/09/25 0658) sodium chloride 0.9 %, 20 mL/hr As Needed: acetaminophen dextrose dextrose 5 % in water dextrose 50 % in water (D50W) glucagon (human recombinant) heparin (porcine) magnesium sulfate magnesium sulfate ondansetron sodium chloride sodium chloride sodium chloride 0.9 % Allergies: Codeine, Sulfa (sulfonamide antibiotics), Sulfamethoxazole- trimethoprim, and Trimethobenzamide Code Status: Full Code Labs Recent Results (from the past 24 hours) Protime & INR Collection Time: 05/08/25 12:35 PM Result Value Ref Range PROTIME 10.9 9.8 - 13.2 sec INR 0.9 0.9 - 1.2 Bedside Glucose *Place/Obtain serum glucose if >500 per glucometer. Collection Time: 05/08/25 4:18 PM Result Value Ref Range Bedside Glucose (POC) 153 (H) 65 - 99 mg/dL Anti XA unfractionated heparin Collection Time: 05/08/25 7:40 PM Result Value Ref Range ANTI XA UFH 0.30 0.30 - 0.70 IU/mL Bedside Glucose *Place/Obtain serum glucose if >500 per glucometer. Collection Time: 05/08/25 9:06 PM Result Value Ref Range Bedside Glucose (POC) 163 (H) 65 - 99 mg/dL Anti XA unfractionated heparin Collection Time: 05/09/25 2:31 AM Result Value Ref Range ANTI XA UFH 0.39 0.30 - 0.70 IU/mL Comprehensive metabolic panel Collection Time: 05/09/25 2:31 AM Result Value Ref Range SODIUM 136 134 - 146 mmol/L POTASSIUM 4.6 3.5 - 5.0 mmol/L CHLORIDE 110 (H) 98 - 109 mmol/L CARBON DIOXIDE 25 22 - 32 mmol/L ANION GAP 1 (L) 5 - 15 mmol/L BLOOD UREA NITROGEN 35 (H) 5 - 27 mg/dL CREATININE 1.56 (H) 0.40 - 1.00 mg/dL GLUCOSE 137 (H) 65 - 99 mg/dL CALCIUM 8.4 (L) 8.5 - 10.5 mg/dL TOTAL PROTEIN 5.0 (L) 6.0 - 8.0 g/dL ALBUMIN 2.6 (L) 3.2 - 5.3 g/dL ALKALINE PHOSPHATASE 134 (H) 39 - 130 U/L AST 96 (H) <=41 U/L ALT 90 (H) <=31 U/L BILIRUBIN,TOTAL 0.3 0.3 - 1.2 mg/dL EGFR Non-Race Dependent 34 (L) >=60 ml/min/1.73sq.m Magnesium Collection Time: 05/09/25 2:31 AM Result Value Ref Range MAGNESIUM 1.7 (L) 1.8 - 2.6 mg/dL CBC auto differential Collection Time: 05/09/25 2:31 AM Result Value Ref Range WBC 4.2 4 - 11 x10E9/L RBC Count 2.72 (L) 3.8 - 5.2 X10E12/L Hemoglobin 7.9 (L) 11.7 - 15.5 g/dL Hematocrit 23.8 (L) 35 - 47 % MCV 88 80 - 100 fL MCH 29.0 27 - 34 pg MCHC 33.2 32 - 36 g/dL RDW 19.7 (H) 11.5 - 15 % Platelet Count 195 150 - 450 X10E9/L MPV 9.3 7 - 12 fL Neutrophils % 49.3 % Lymphocytes % 37.3 % Monocytes % 10.4 % Eosinophils % 2.2 % Basophils % 0.8 % Neutrophils Absolute (A) 2.1 1.5 - 6.6 10*3/uL Lymphocytes Absolute 1.6 1.0 - 3.5 10*3/uL Monocytes Absolute 0.4 0.0 - 0.9 10*3/uL Eosinophils Absolute 0.1 0.0 - 0.4 10*3/uL Basophils Absolute 0.0 0.0 - 0.2 10*3/uL Differential Type AUTOMATED DIFFERENTIAL Bedside Glucose *Place/Obtain serum glucose if >500 per glucometer. Collection Time: 05/09/25 7:47 AM Result Value Ref Range Bedside Glucose (POC) 132 (H) 65 - 99 mg/dL Magnesium Collection Time: 05/09/25 11:03 AM Result Value Ref Range MAGNESIUM 2.1 1.8 - 2.6 mg/dL Bedside Glucose *Place/Obtain serum glucose if >500 per glucometer. Collection Time: 05/09/25 11:07 AM Result Value Ref Range Bedside Glucose (POC) 224 (H) 65 - 99 mg/dL Radiology No results found. HOSPITAL PROBLEM LIST Principal Problem: Acute upper GI bleed Active Problems: Hypertension Type 2 diabetes mellitus with diabetic polyneuropathy, with long-term current use of insulin ([facility]) Vitamin B12 deficiency Hyperlipidemia Hyperkalemia Weakness Paroxysmal atrial fibrillation ([facility]) Iron deficiency anemia due to chronic blood loss Vaginal bleeding Left lower lobe pulmonary infiltrate Acute kidney injury superimposed on stage 3b chronic kidney disease ([facility]) ASSESSMENT & PLAN Acute upper GI bleed -hold blood thinners -last dose of eliquis was 8/3 -iron daily -Protonix drip -resume po at d/c -H&H every 8 hours -stable -general surgery consulted- EGD showing gastric mass, awaiting biopsy result. Colonoscopy-Segmental moderate inflammation was found in the sigmoid colon secondary to colitis. Biopsied. - Diverticulosis in the sigmoid colon. -CT ab/pelvis- Severe aortoiliac and mesenteric atherosclerotic changes, lipitor/thinners currentlyon hold Acute urinary retention Stop Ditropan Start Flomax Urology follow up Discharge with Marino and plan to do void trial in 1-2 days ??Vaginal bleeding -check ultrasound abdomen pelvis -unremarkable -swimmer consulted - do not feel this is swimmer etiology Left lower lobe infiltrate community acquired -recently treated -add inflammatory markers if those are within normal limits will not start antibiotics -no leukocytosis -On RA -encourage cough and deep breathe -on room air Weakness/fatigue -PT and OT to see Acute on Chronic CKD stage IIIB Deficiency anemia secondary to chronic disease -follows with Oncology did review last note from 2025 as to which she received Aranesp every 2 weeks for anemia -also received IV Feraheme on 03/05 and 613 -follows with Nephrology outpatient -low threshold for getting Nephrology involved -baseline kidney function does appear in the high 2 range 1.99 April 12 2.38 April 11 2.9 for April 10 was 3.0 April 08 -intake and output daily weights -bladder scan was greater than 600- marino placed -creatinine improved with marino Type 2 DM with diabetic polyneuropathy with manager intermediate insulin use -continue with Lantus and a.c. and HS Accu-Cheks with sliding scale coverage -dietitian to follow Coronary artery disease Paroxysmal AFib Hypertension Hyperlipidemia Chronic heart failure with preserved ejection fraction Status post PCI to right coronary artery during a setting of inferior STEMI on 08/23 -reviewed cardiology note from 03/10/2025 discussed with patient no more indication for PCI or further cardiac testing -continue on lunchroom monitor -continue on amiodarone and Lopressor -holding thinners for now until biopsy results returned from EGD. Follow up with PCP and Gen surgery -cardio consulted for med recs d/c elevated LFTs while on amio and bleeding on eliquis Recent subdural hematoma discharged on 04/12 from [facility] -this was after a trip & fall -Neurosurgery was following -keppra was ordered for seven days for seizure prophylaxis -keep BP < 140 systolic -was ok to resume anticoagulation after 10 days of stable head CT (04/18) would have been ok to resume 04/28 -Ct brain stable left frontal scalp hematoma Chronic B12 deficiency -on Lyrica -follows with Neurology reviewed note from 04/06/2025 at that time it does look like Lyrica was changed to 75 mg 3 times a day and 150 mg at night as well as decrease Eliquis to 2.5 mg twice a day Obesity BMI 40 -dietitian to follow Transaminitis -trend suspect reactive -improving -hold statin, cmp 1 week -get acute hepatitis panel -negative -did have CT abdomen in ER Although bile duct appears somewhat prominent, this may represent reservoir effect secondary to remote cholecystectomy. -No focal hepatic or splenic abnormality on imaging Hyperkalemia -improved Hyponatremia -monitor closely was given fluids -improving -is on diuretics normally -urine osmol, serum osmol, urine sodium DC planning: awaiting SNF. Medically Ready for Discharge: Ready Now DANIELLE Baig 05/09/2025 12:20 PM [facility] Internal [facility] 7AM-7PM & 7PM-7AM: EpicChat or page through On-Call Finder. DANIELLE Baig 05/09/25 1221 ILaina MD, personally performed the face to face diagnostic evaluation on this patient on 05/07. I have reviewed the CLAIRE's History, Exam, and MDM and agree with the assessment and plan as written. I have reviewed all laboratory findings and imaging reports/films. Dr Laina Rome MD, MRCP 05/09/2025 2:00 PM * Laina oRme MD - 05/06/2025 10:31 AM EDT Images from the original note were not included. [facility] INTERNAL MEDICINE [facility] [address] [facility] [id number] [facility] Medicine Progress Note Patient: Irma Caceres Date of : 1945 Room: [facility] PCP: DANIELLE OLSON Admission date: 05/02/2025 8:05 PM Encounter date: 05/06/25 Hospital Day: 5 SUBJECTIVE Interval History: Status: unchanged. No overnight events. EGD completed - noted mass suspicious for cancer. Will need colonoscopy to be completed likely saturday. LFTs remain elevated, pending labs still, cardio consult to determine amio and eliquis in the setting of bleeding/transaminitis. Review of Systems Constitutional: Positive for fatigue. Negative for chills and fever. HENT: Negative for ear pain and sore throat. Eyes: Negative for pain and visual disturbance. Respiratory: Negative for cough and shortness of breath. Cardiovascular: Negative for chest pain and palpitations. Gastrointestinal: Positive for blood in stool. Negative for abdominal pain and vomiting. Genitourinary: Negative for dysuria and hematuria. Musculoskeletal: Negative for arthralgias and back pain. Skin: Negative for color change and rash. Neurological: Negative for seizures and syncope. All other systems reviewed and are negative. OBJECTIVE BP 123/46 Pulse 51 Temp 36.3 ??C (97.4 ??F) (Oral) Resp 20 Ht 157.5 cm (5' 2 ) Wt 100.2 kg (220 lb 12.8 oz) LMP (LMP Unknown) SpO2 98% BMI 40.38 kg/m?? Temp: [36.1 ??C (96.9 ??F)-36.6 ??C (97.8 ??F)] 36.3 ??C (97.4 ??F) Pulse: [51-68] 51 Resp: [13-20] 20 BP: (123-205)/(46-76) 123/46 SpO2: [98 %-100 %] 98 % O2 Device: None (Room air) O2 Flow Rate (L/min): [0 L/min] 0 L/min Intake/Output Summary (Last 24 hours) at 05/06/2025 1031 Last data filed at 05/06/2025 0500 Gross per 24 hour Intake 670 ml Output 1950 ml Net -1280 ml Physical Exam Vitals and nursing note reviewed. Constitutional: Appearance: She is well-developed. She is obese. HENT: Head: Normocephalic and atraumatic. Nose: Nose normal. Eyes: Pupils: Pupils are equal, round, and reactive to light. Cardiovascular: Rate and Rhythm: Normal rate and regular rhythm. Heart sounds: Normal heart sounds. No murmur heard. Pulmonary: Effort: Pulmonary effort is normal. No respiratory distress. Breath sounds: Normal breath sounds. No wheezing. Abdominal: General: Bowel sounds are normal. Palpations: Abdomen is soft. Tenderness: There is no abdominal tenderness. Musculoskeletal: General: Normal range of motion. Cervical back: Neck supple. Lymphadenopathy: Cervical: No cervical adenopathy. Skin: General: Skin is warm and dry. Findings: Bruising (left face) present. No rash. Neurological: Mental Status: She is alert and oriented to person, place, and time. Cranial Nerves: No cranial nerve deficit. Medications Scheduled: amiodarone, 200 mg, oral, BID ferrous sulfate, 325 mg, oral, Daily with breakfast insulin glargine, 20 Units, subcutaneous, Nightly insulin lispro, 2-10 Units, subcutaneous, With meals and nightly metoprolol tartrate, 25 mg, oral, BID pregabalin, 75 mg, oral, BID AND pregabalin, 150 mg, oral, Nightly sodium chloride, 3 mL, intravenous, Q12H HUNG Infusions: dextrose 5 % in water, 100 mL/hr pantoprazole (PROTONIX) 80 mg in sodium chloride 0.9 % 100 mL (0.8 mg/mL) infusion, 8 mg/hr, Last Rate: 8 mg/hr (05/06/25 0241) sodium chloride 0.9 %, 20 mL/hr As Needed: acetaminophen dextrose dextrose 5 % in water dextrose 50 % in water (D50W) glucagon (human recombinant) magnesium sulfate magnesium sulfate ondansetron sodium chloride sodium chloride sodium chloride 0.9 % Allergies: Codeine, Sulfa (sulfonamide antibiotics), Sulfamethoxazole- trimethoprim, and Trimethobenzamide Code Status: Full Code Labs Recent Results (from the past 24 hours) Bedside Glucose *Place/Obtain serum glucose if >500 per glucometer. Collection Time: 05/05/25 11:56 AM Result Value Ref Range Bedside Glucose (POC) 148 (H) 65 - 99 mg/dL Hemoglobin and hematocrit, blood Collection Time: 05/05/25 1:03 PM Result Value Ref Range Hemoglobin 9.2 (L) 11.7 - 15.5 g/dL Hematocrit 27.2 (L) 35 - 47 % HIV 1&2 AB/AG Screen (P24 AG) Collection Time: 05/05/25 1:03 PM Result Value Ref Range HIV 1 AND 2 AB/AG SCREEN Non-Reactive Non-Reactive Narrative This information has been disclosed to you from confidential records protected from disclosure by state law. You shall make no further disclosure of this information without the specific, written andinformed release of the individual to whom it pertains, or as otherwise permitted by state law. A general authorization for the release of medical or other information is not sufficient for the purpose of the release of HIV test results or diagnoses. Bedside Glucose *Place/Obtain serum glucose if >500 per glucometer. Collection Time: 05/05/25 4:53 PM Result Value Ref Range Bedside Glucose (POC) 169 (H) 65 - 99 mg/dL Potassium Collection Time: 05/05/25 5:07 PM Result Value Ref Range POTASSIUM 4.8 3.5 - 5.0 mmol/L Bedside Glucose *Place/Obtain serum glucose if >500 per glucometer. Collection Time: 05/05/25 8:52 PM Result Value Ref Range Bedside Glucose (POC) 159 (H) 65 - 99 mg/dL Hemoglobin and hematocrit, blood Collection Time: 05/05/25 9:50 PM Result Value Ref Range Hemoglobin 9.0 (L) 11.7 - 15.5 g/dL Hematocrit 27.0 (L) 35 - 47 % Extra Tubes Collection Time: 05/06/25 5:32 AM Narrative The following orders were created for panel order Extra Tubes. Procedure Abnormality Status --------- ------ Light Blue Top[[id number]] Final result Please view results for these tests on the individual orders. Light Blue Top Collection Time: 05/06/25 5:32 AM Result Value Ref Range Extra Tube Auto Resulted Comprehensive metabolic panel Collection Time: 05/06/25 5:33 AM Result Value Ref Range SODIUM 133 (L) 134 - 146 mmol/L POTASSIUM 4.3 3.5 - 5.0 mmol/L CHLORIDE 102 98 - 109 mmol/L CARBON DIOXIDE 22 22 - 32 mmol/L ANION GAP 9 5 - 15 mmol/L BLOOD UREA NITROGEN 55 (H) 5 - 27 mg/dL CREATININE 1.81 (H) 0.40 - 1.00 mg/dL GLUCOSE 87 65 - 99 mg/dL CALCIUM 8.5 8.5 - 10.5 mg/dL TOTAL PROTEIN 5.6 (L) 6.0 - 8.0 g/dL ALBUMIN 2.7 (L) 3.2 - 5.3 g/dL ALKALINE PHOSPHATASE 120 39 - 130 U/L AST 202 (H) <=41 U/L ALT 140 (H) <=31 U/L BILIRUBIN,TOTAL 0.7 0.3 - 1.2 mg/dL EGFR Non-Race Dependent 28 (L) >=60 ml/min/1.73sq.m Magnesium Collection Time: 05/06/25 5:33 AM Result Value Ref Range MAGNESIUM 2.2 1.8 - 2.6 mg/dL CBC auto differential Collection Time: 05/06/25 5:33 AM Result Value Ref Range WBC 6.8 4 - 11 x10E9/L RBC Count 2.95 (L) 3.8 - 5.2 X10E12/L Hemoglobin 8.7 (L) 11.7 - 15.5 g/dL Hematocrit 25.8 (L) 35 - 47 % MCV 87 80 - 100 fL MCH 29.4 27 - 34 pg MCHC 33.7 32 - 36 g/dL RDW 19.2 (H) 11.5 - 15 % Platelet Count 262 150 - 450 X10E9/L MPV 10.4 7 - 12 fL Neutrophils % 67.7 % Lymphocytes % 20.9 % Monocytes % 8.3 % Eosinophils % 2.2 % Basophils % 0.9 % Neutrophils Absolute (A) 4.6 1.5 - 6.6 10*3/uL Lymphocytes Absolute 1.4 1.0 - 3.5 10*3/uL Monocytes Absolute 0.6 0.0 - 0.9 10*3/uL Eosinophils Absolute 0.1 0.0 - 0.4 10*3/uL Basophils Absolute 0.1 0.0 - 0.2 10*3/uL Differential Type AUTOMATED DIFFERENTIAL Radiology EGD Report Result Date: 05/05/2025 This order has been auto-finalized for image and report archival in PACs. *For full report details,please reach out to your physician. This image is visible to you in MyChart.* Ultrasound abdomen limited Result Date: 05/05/2025 Clinical history: Elevated transaminases Findings: Multiplanar sonography was performed of the right upper quadrant. Comparison: None. * Prior cholecystectomy. * Common bile duct measures: 5.9 mm * No free fluid/ascites * Liver echotexture is echogenic. * Portal vein is patent with hepatopedal flow. * Pancreas obscured by bowel gas. No definite pancreatic ductal dilatation. * No right renal obstruction . Cortical thinning consistent with patient's age. Impression: * Unremarkable right upper quadrant ultrasound Finalized by Duke Bob MD on 05/05/2025 1:44 PM HOSPITAL PROBLEM LIST Principal Problem: Acute upper GI bleed Active Problems: Hypertension Type 2 diabetes mellitus with diabetic polyneuropathy, with long-term current use of insulin ([facility]) Vitamin B12 deficiency Hyperlipidemia Hyperkalemia Weakness Paroxysmal atrial fibrillation ([facility]) Iron deficiency anemia due to chronic blood loss Vaginal bleeding Left lower lobe pulmonary infiltrate Acute kidney injury superimposed on stage 3b chronic kidney disease ([facility]) ASSESSMENT & PLAN Acute upper GI bleed -hold blood thinners -last dose of eliquis was 8/3 -iron daily -Protonix drip -H&H every 8 hours -general surgery consulted- EGD showing gastric mass, awaiting biopsy. Colonoscopy tomorrow. -CT ab/pelvis- Severe aortoiliac and mesenteric atherosclerotic changes, lipitor/thinners currentlyon hold ??Vaginal bleeding -check ultrasound abdomen pelvis -unremarkable -swimmer consulted - do not feel this is swimmer etiology Left lower lobe infiltrate community acquired -recently treated -add inflammatory markers if those are within normal limits will not start antibiotics -no leukocytosis -On RA -encourage cough and deep breathe -on room air Weakness/fatigue -PT and OT to see Acute on Chronic CKD stage IIIB Deficiency anemia secondary to chronic disease -follows with Oncology did review last note from 2025 as to which she received Aranesp every 2 weeks for anemia -also received IV Feraheme on 03/05 and 613 -follows with Nephrology outpatient -low threshold for getting Nephrology involved -baseline kidney function does appear in the high 2 range 1.99 April 12 2.38 April 11 2.9 for April 10 was 3.0 April 08 -intake and output daily weights -bladder scan was greater than 600- marino placed -creatinine improving with marino Type 2 DM with diabetic polyneuropathy with nursing home insulin use -continue with Lantus and a.c. and HS Accu-Cheks with sliding scale coverage -dietitian to follow Coronary artery disease Paroxysmal AFib Hypertension Hyperlipidemia Chronic heart failure with preserved ejection fraction Status post PCI to right coronary artery during a setting of inferior STEMI on 08/23 -reviewed cardiology note from 03/10/2025 discussed with patient no more indication for PCI or further cardiac testing -continue on lunchroom monitor -continue on amiodarone and Lopressor -holding thinners for now -cardio consulted for med recs d/c elevated LFTs while on amio and bleeding on eliquis Recent subdural hematoma discharged on 04/12 from [facility] -this was after a trip & fall -Neurosurgery was following -keppra was ordered for seven days for seizure prophylaxis -keep BP < 140 systolic -was ok to resume anticoagulation after 10 days of stable head CT (04/18) would have been ok to resume 04/28 -Ct brain stable left frontal scalp hematoma Chronic B12 deficiency -on Lyrica -follows with Neurology reviewed note from 04/06/2025 at that time it does look like Lyrica was changed to 75 mg 3 times a day and 150 mg at night as well as decrease Eliquis to 2.5 mg twice a day Obesity BMI 40 -dietitian to follow Transaminitis -trend suspect reactive -get acute hepatitis panel -negative -did have CT abdomen in ER Although bile duct appears somewhat prominent, this may represent reservoir effect secondary to remote cholecystectomy. -No focal hepatic or splenic abnormality on imaging -check HIV, CMV, EBV, liver US- if all negative will consult cardio as pt is on amio and this couldbe contributing. Hyperkalemia -improved Hyponatremia -monitor closely was given fluids -improving -is on diuretics normally -urine osmol, serum osmol, urine sodium DC planning: SNF . Medically Ready for Discharge: Anticipated in 2-4 Days DANIELLE Baig 05/06/2025 10:[address] [facility] Internal Medicine 7AM-7PM & 7PM-7AM: EpicChat or page through On-Call Finder. DANIELLE Baig 05/06/25 7481 I, Laina Rome MD, personally performed the face to face diagnostic evaluation on this patient. I have reviewed the CLAIRE's History, Exam, and MDM and agree with the assessment and plan as written. I have reviewed all laboratory findings and imaging reports/films. EGD showing fungating mass in gastric body, awaiting biopsy result. Findings were discussed with ptand her sister Dr Laina Rome MD, MRCP 05/06/2025 5:17 PM * Laina Rome MD - 05/05/2025 1:26 PM EDT Images from the original note were not included. [facility] INTERNAL MEDICINE [facility] [address] [id number] Hospital Medicine Progress Note Patient: Irma Caceres Date of : 1945 Room: PCP: DANIELLE OLSON Admission date: 05/02/2025 8:05 PM Encounter date: 05/05/25 Hospital Day: 4 SUBJECTIVE Interval History: Status: unchanged. No overnight events. Colonoscopy today. Review of Systems Constitutional: Positive for fatigue. Negative for chills and fever. HENT: Negative for ear pain and sore throat. Eyes: Negative for pain and visual disturbance. Respiratory: Negative for cough and shortness of breath. Cardiovascular: Negative for chest pain and palpitations. Gastrointestinal: Positive for blood in stool. Negative for abdominal pain and vomiting. Genitourinary: Positive for vaginal bleeding. Negative for dysuria and hematuria. Musculoskeletal: Negative for arthralgias and back pain. Skin: Negative for color change and rash. Neurological: Negative for seizures and syncope. All other systems reviewed and are negative. OBJECTIVE BP 151/67 Pulse 68 Temp 36.4 ??C (97.5 ??F) (Oral) Resp 16 Ht 157.5 cm (5' 2 ) Wt 97.5 kg(214 lb 14.4 oz) LMP (LMP Unknown) SpO2 100% BMI 39.31 kg/m?? Temp: [36.3 ??C (97.4 ??F)-36.6 ??C (97.8 ??F)] 36.4 ??C (97.5 ??F) Pulse: [50-68] 68 Resp: [16-17] 16 BP: (138-153)/(45-98) 151/67 SpO2: [95 %-100 %] 100 % O2 Device: None (Room air) O2 Flow Rate (L/min): [0 L/min] 0 L/min Intake/Output Summary (Last 24 hours) at 05/05/2025 1326 Last data filed at 05/05/2025 1117 Gross per 24 hour Intake 1752.39 ml Output 2300 ml Net -547.61 ml Physical Exam Vitals and nursing note reviewed. Constitutional: Appearance: She is well-developed. She is obese. HENT: Head: Normocephalic and atraumatic. Nose: Nose normal. Eyes: Pupils: Pupils are equal, round, and reactive to light. Cardiovascular: Rate and Rhythm: Normal rate and regular rhythm. Heart sounds: Normal heart sounds. No murmur heard. Pulmonary: Effort: Pulmonary effort is normal. No respiratory distress. Breath sounds: Normal breath sounds. No wheezing. Abdominal: General: Bowel sounds are normal. Palpations: Abdomen is soft. Tenderness: There is no abdominal tenderness. Musculoskeletal: General: Normal range of motion. Cervical back: Neck supple. Lymphadenopathy: Cervical: No cervical adenopathy. Skin: General: Skin is warm and dry. Findings: Bruising (left face) present. No rash. Neurological: Mental Status: She is alert and oriented to person, place, and time. Cranial Nerves: No cranial nerve deficit. Medications Scheduled: amiodarone, 200 mg, oral, BID ferrous sulfate, 325 mg, oral, Daily with breakfast insulin glargine, 20 Units, subcutaneous, Nightly insulin lispro, 2-10 Units, subcutaneous, With meals and nightly metoprolol tartrate, 25 mg, oral, BID pregabalin, 75 mg, oral, TID AND pregabalin, 150 mg, oral, Nightly sodium chloride, 3 mL, intravenous, Q12H HUNG Infusions: dextrose 5 % in water, 100 mL/hr pantoprazole (PROTONIX) 80 mg in sodium chloride 0.9 % 100 mL (0.8 mg/mL) infusion, 8 mg/hr, Last Rate: 8 mg/hr (05/05/25 0550) sodium chloride 0.9 %, 20 mL/hr sodium chloride 0.9 %, 100 mL/hr, Last Rate: 100 mL/hr (05/05/25 1243) As Needed: acetaminophen dextrose dextrose 5 % in water dextrose 50 % in water (D50W) glucagon (human recombinant) magnesium sulfate magnesium sulfate ondansetron sodium chloride sodium chloride sodium chloride 0.9 % Allergies: Codeine, Sulfa (sulfonamide antibiotics), Sulfamethoxazole- trimethoprim, and Trimethobenzamide Code Status: Full Code Labs Recent Results (from the past 24 hours) Bedside Glucose *Place/Obtain serum glucose if >500 per glucometer. Collection Time: 05/04/25 4:35 PM Result Value Ref Range Bedside Glucose (POC) 208 (H) 65 - 99 mg/dL Bedside Glucose *Place/Obtain serum glucose if >500 per glucometer. Collection Time: 05/04/25 8:38 PM Result Value Ref Range Bedside Glucose (POC) 177 (H) 65 - 99 mg/dL Hemoglobin and hematocrit, blood Collection Time: 05/04/25 9:28 PM Result Value Ref Range Hemoglobin 8.8 (L) 11.7 - 15.5 g/dL Hematocrit 26.4 (L) 35 - 47 % Magnesium Collection Time: 05/04/25 9:28 PM Result Value Ref Range MAGNESIUM 2.8 (H) 1.8 - 2.6 mg/dL Extra Tubes Collection Time: 05/05/25 6:00 AM Narrative The following orders were created for panel order Extra Tubes. Procedure Abnormality Status --------- ------ Light Blue Top[[id number]] Final result Please view results for these tests on the individual orders. Light Blue Top Collection Time: 05/05/25 6:00 AM Result Value Ref Range Extra Tube Auto Resulted Comprehensive metabolic panel Collection Time: 05/05/25 6:01 AM Result Value Ref Range SODIUM 130 (L) 134 - 146 mmol/L POTASSIUM 5.2 (H) 3.5 - 5.0 mmol/L CHLORIDE 100 98 - 109 mmol/L CARBON DIOXIDE 21 (L) 22 - 32 mmol/L ANION GAP 9 5 - 15 mmol/L BLOOD UREA NITROGEN 70 (H) 5 - 27 mg/dL CREATININE 2.13 (H) 0.40 - 1.00 mg/dL GLUCOSE 144 (H) 65 - 99 mg/dL CALCIUM 8.8 8.5 - 10.5 mg/dL TOTAL PROTEIN 6.0 6.0 - 8.0 g/dL ALBUMIN 3.1 (L) 3.2 - 5.3 g/dL ALKALINE PHOSPHATASE 133 (H) 39 - 130 U/L AST 235 (H) <=41 U/L ALT 163 (H) <=31 U/L BILIRUBIN,TOTAL 0.7 0.3 - 1.2 mg/dL EGFR Non-Race Dependent 23 (L) >=60 ml/min/1.73sq.m Magnesium Collection Time: 05/05/25 6:01 AM Result Value Ref Range MAGNESIUM 2.5 1.8 - 2.6 mg/dL CBC auto differential Collection Time: 05/05/25 6:01 AM Result Value Ref Range WBC 7.3 4 - 11 x10E9/L RBC Count 3.14 (L) 3.8 - 5.2 X10E12/L Hemoglobin 9.2 (L) 11.7 - 15.5 g/dL Hematocrit 27.3 (L) 35 - 47 % MCV 87 80 - 100 fL MCH 29.2 27 - 34 pg MCHC 33.6 32 - 36 g/dL RDW 19.1 (H) 11.5 - 15 % Platelet Count 216 150 - 450 X10E9/L MPV 9.9 7 - 12 fL Neutrophils % 68.8 % Lymphocytes % 19.5 % Monocytes % 8.1 % Eosinophils % 2.5 % Basophils % 1.1 % Neutrophils Absolute (A) 5.0 1.5 - 6.6 10*3/uL Lymphocytes Absolute 1.4 1.0 - 3.5 10*3/uL Monocytes Absolute 0.6 0.0 - 0.9 10*3/uL Eosinophils Absolute 0.2 0.0 - 0.4 10*3/uL Basophils Absolute 0.1 0.0 - 0.2 10*3/uL Differential Type AUTOMATED DIFFERENTIAL Bedside Glucose *Place/Obtain serum glucose if >500 per glucometer. Collection Time: 05/05/25 11:56 AM Result Value Ref Range Bedside Glucose (POC) 148 (H) 65 - 99 mg/dL Radiology No results found. HOSPITAL PROBLEM LIST Principal Problem: Acute upper GI bleed Active Problems: Hypertension Type 2 diabetes mellitus with diabetic polyneuropathy, with long-term current use of insulin ([facility]) Vitamin B12 deficiency Hyperlipidemia Hyperkalemia Weakness Paroxysmal atrial fibrillation ([facility]) Iron deficiency anemia due to chronic blood loss Vaginal bleeding Left lower lobe pulmonary infiltrate Acute kidney injury superimposed on stage 3b chronic kidney disease ([facility]) ASSESSMENT & PLAN Acute upper GI bleed -hold blood thinners -last dose of eliquis was 8/3 -iron daily -Protonix drip -H&H every 8 hours -transfuse 1 unit of blood -general surgery consulted- colonoscopy today -CT ab/pelvis- Severe aortoiliac and mesenteric atherosclerotic changes, lipitor/thinners currentlyon hold Vaginal bleeding -check ultrasound abdomen pelvis -unremarkable -swimmer consulted - do not feel this is swimmer etiology Left lower lobe infiltrate community acquired -recently treated -add inflammatory markers if those are within normal limits will not start antibiotics -no leukocytosis -On RA -encourage cough and deep breathe -on room air Weakness/fatigue -PT and OT to see Acute on Chronic CKD stage IIIB Deficiency anemia secondary to chronic disease -follows with Oncology did review last note from 2025 as to which she received Aranesp every 2 weeks for anemia -also received IV Feraheme on 03/05 and 613 -follows with Nephrology outpatient -low threshold for getting Nephrology involved -baseline kidney function does appear in the high 2 range 1.99 April 12 2.38 April 11 2.9 for April 10 was 3.0 April 08 -intake and output daily weights -bladder scan was greater than 600- marino placed -creatinine improved with marino Type 2 DM with diabetic polyneuropathy with manager intermediate insulin use -continue with Lantus and a.c. and HS Accu-Cheks with sliding scale coverage -dietitian to follow Coronary artery disease Paroxysmal AFib Hypertension Hyperlipidemia Chronic heart failure with preserved ejection fraction Status post PCI to right coronary artery during a setting of inferior STEMI on 08/23 -reviewed cardiology note from 03/10/2025 discussed with patient no more indication for PCI or further cardiac testing -continue on lunchroom monitor -continue on amiodarone and Lopressor -holding thinners for now Recent subdural hematoma discharged on 04/12 from [facility] -this was after a trip & fall -Neurosurgery was following -keppra was ordered for seven days for seizure prophylaxis -keep BP < 140 systolic -was ok to resume anticoagulation after 10 days of stable head CT (04/18) would have been ok to resume 04/28 -Ct brain stable left frontal scalp hematoma Chronic B12 deficiency -on Lyrica -follows with Neurology reviewed note from 04/06/2025 at that time it does look like Lyrica was changed to 75 mg 3 times a day and 150 mg at night as well as decrease Eliquis to 2.5 mg twice a day Obesity BMI 40 -dietitian to follow Transaminitis -trend suspect reactive -get acute hepatitis panel -negative -did have CT abdomen in ER Although bile duct appears somewhat prominent, this may represent reservoir effect secondary to remote cholecystectomy. -No focal hepatic or splenic abnormality on imaging -check HIV, CMV, EBV, liver US- if all negative will consult cardio as pt is on amio and this couldbe contributing. Hyperkalemia -5.2- recheck this afternoon, currently NPO cannot receive lokelma -monitor daily. Hyponatremia -monitor closely was given fluids -improving -is on diuretics normally -urine osmol, serum osmol, urine sodium DC planning: SNF . Medically Ready for Discharge: Anticipated in 2-4 Days Bethanie Marquez, [employer] 05/05/2025 1:26 PM [facility] Internal Medicine 7AM-7PM & 7PM-7AM: EpicChat or page through On-Call Finder. DANIELLE Baig 05/05/25 7008 ILaina MD, personally performed the face to face diagnostic evaluation on this patient. I have reviewed the CLAIRE's History, Exam, and MDM and agree with the assessment and plan as written. I have reviewed all laboratory findings and imaging reports/films. Dr Laina Rome MD, MRCP 05/05/2025 5:59 PM * Laina Rome MD - 05/04/2025 10:16 AM EDT Images from the original note were not included. [facility] INTERNAL MEDICINE [facility] [address] [facility] [id number] [facility] Medicine Progress Note Patient: Irma Caceres Date of : 1945 Room: PCP: DANIELLE OLSON Admission date: 05/02/2025 8:05 PM Encounter date: 05/04/25 Hospital Day: 3 SUBJECTIVE Interval History: Status: unchanged. No overnight events. Hgb stable. Discussed with general surgery, pt will need scope while inpatient. Do not feel pt is stable to perform OP scope. Discussed with Dr. Myles, plan for colonoscopy tomorrow. Review of Systems Constitutional: Positive for fatigue. Negative for chills and fever. HENT: Negative for ear pain and sore throat. Eyes: Negative for pain and visual disturbance. Respiratory: Negative for cough and shortness of breath. Cardiovascular: Negative for chest pain and palpitations. Gastrointestinal: Positive for blood in stool. Negative for abdominal pain and vomiting. Genitourinary: Positive for vaginal bleeding. Negative for dysuria and hematuria. Musculoskeletal: Negative for arthralgias and back pain. Skin: Negative for color change and rash. Neurological: Negative for seizures and syncope. All other systems reviewed and are negative. OBJECTIVE BP 140/58 Pulse 57 Temp 36.4 ??C (97.6 ??F) (Oral) Resp 18 Ht 157.5 cm (5' 2 ) Wt 105.7 kg (233 lb) LMP (LMP Unknown) SpO2 92% BMI 42.62 kg/m?? Temp: [36.4 ??C (97.6 ??F)-37 ??C (98.6 ??F)] 36.4 ??C (97.6 ??F) Pulse: [57-63] 57 Resp: [16-18] 18 BP: (88-145)/(46-65) 140/58 SpO2: [92 %-100 %] 92 % O2 Device: None (Room air) O2 Flow Rate (L/min): [0 L/min] 0 L/min Intake/Output Summary (Last 24 hours) at 05/04/2025 1016 Last data filed at 05/04/2025 0858 Gross per 24 hour Intake 3886.41 ml Output 2450 ml Net 1436.41 ml Physical Exam Vitals and nursing note reviewed. Constitutional: Appearance: She is well-developed. She is obese. HENT: Head: Normocephalic and atraumatic. Nose: Nose normal. Eyes: Pupils: Pupils are equal, round, and reactive to light. Cardiovascular: Rate and Rhythm: Normal rate and regular rhythm. Heart sounds: Normal heart sounds. No murmur heard. Pulmonary: Effort: Pulmonary effort is normal. No respiratory distress. Breath sounds: Normal breath sounds. No wheezing. Abdominal: General: Bowel sounds are normal. Palpations: Abdomen is soft. Tenderness: There is no abdominal tenderness. Musculoskeletal: General: Normal range of motion. Cervical back: Neck supple. Lymphadenopathy: Cervical: No cervical adenopathy. Skin: General: Skin is warm and dry. Findings: Bruising (left face) present. No rash. Neurological: Mental Status: She is alert and oriented to person, place, and time. Cranial Nerves: No cranial nerve deficit. Medications Scheduled: amiodarone, 200 mg, oral, BID ferrous sulfate, 325 mg, oral, Daily with breakfast insulin glargine, 20 Units, subcutaneous, Nightly insulin lispro, 2-10 Units, subcutaneous, With meals and nightly metoprolol tartrate, 25 mg, oral, BID pregabalin, 75 mg, oral, TID AND pregabalin, 150 mg, oral, Nightly sodium chloride, 3 mL, intravenous, Q12H HUNG Infusions: dextrose 5 % in water, 100 mL/hr pantoprazole (PROTONIX) 80 mg in sodium chloride 0.9 % 100 mL (0.8 mg/mL) infusion, 8 mg/hr, Last Rate: 8 mg/hr (05/04/25857) sodium chloride 0.9 %, 20 mL/hr sodium chloride 0.9 %, 100 mL/hr, Last Rate: 100 mL/hr (05/04/25857) As Needed: acetaminophen dextrose dextrose 5 % in water dextrose 50 % in water (D50W) glucagon (human recombinant) magnesium sulfate magnesium sulfate ondansetron sodium chloride sodium chloride sodium chloride 0.9 % Allergies: Codeine, Sulfa (sulfonamide antibiotics), Sulfamethoxazole- trimethoprim, and Trimethobenzamide Code Status: Full Code Labs Recent Results (from the past 24 hours) Bedside Glucose *Place/Obtain serum glucose if >500 per glucometer. Collection Time: 05/03/25 11:59 AM Result Value Ref Range Bedside Glucose (POC) 77 65 - 99 mg/dL Urinalysis Collection Time: 05/03/25 12:40 PM Specimen: Urine, Indwelling Catheter Result Value Ref Range COLOR Yellow Yellow TURBIDITY Clear Clear SPECIFIC GRAVITY 1.010 1.003 - 1.035 NITRITE Negative Negative PH,URINE 6.0 5.0 - 8.5 LEUKOCYTE ESTERASE Negative Negative PROTEIN Trace (A) Negative KETONES (URINE) Negative Negative UROBILINOGEN 0.2 eu/dL 0.2 eu/dL, 1.0 eu/dL BILIRUBIN (URINE) Negative Negative BLOOD/HGB Moderate (A) Negative MUCOUS Present (A) None R.B.CELLS 4 0 - 5 W.B.CELLS 8 (H) 0 - 5 GLUCOSE (URINE) Negative Negative, 250 mg/dL Sodium, urine, random Collection Time: 05/03/25 12:40 PM Specimen: Urine, Indwelling Catheter Result Value Ref Range URINE SODIUM,RANDOM 50 mmol/L Osmolality, urine Collection Time: 05/03/25 12:40 PM Specimen: Urine, Indwelling Catheter Result Value Ref Range URINE OSMOLALITY 328 300 - 1,300 mOsm/kg H2 Hemoglobin and hematocrit, blood Collection Time: 05/03/25 3:34 PM Result Value Ref Range Hemoglobin 8.0 (L) 11.7 - 15.5 g/dL Hematocrit 23.5 (L) 35 - 47 % Bedside Glucose *Place/Obtain serum glucose if >500 per glucometer. Collection Time: 05/03/25 4:02 PM Result Value Ref Range Bedside Glucose (POC) 147 (H) 65 - 99 mg/dL Bedside Glucose *Place/Obtain serum glucose if >500 per glucometer. Collection Time: 05/03/25 8:23 PM Result Value Ref Range Bedside Glucose (POC) 100 (H) 65 - 99 mg/dL Hemoglobin and hematocrit, blood Collection Time: 05/03/25 9:30 PM Result Value Ref Range Hemoglobin 8.2 (L) 11.7 - 15.5 g/dL Hematocrit 24.3 (L) 35 - 47 % Comprehensive metabolic panel Collection Time: 05/04/25 5:37 AM Result Value Ref Range SODIUM 131 (L) 134 - 146 mmol/L POTASSIUM 4.4 3.5 - 5.0 mmol/L CHLORIDE 102 98 - 109 mmol/L CARBON DIOXIDE 22 22 - 32 mmol/L ANION GAP 7 5 - 15 mmol/L BLOOD UREA NITROGEN 82 (H) 5 - 27 mg/dL CREATININE 2.72 (H) 0.40 - 1.00 mg/dL GLUCOSE 82 65 - 99 mg/dL CALCIUM 8.2 (L) 8.5 - 10.5 mg/dL TOTAL PROTEIN 4.6 (L) 6.0 - 8.0 g/dL ALBUMIN 2.3 (L) 3.2 - 5.3 g/dL ALKALINE PHOSPHATASE 110 39 - 130 U/L AST 268 (H) <=41 U/L ALT 147 (H) <=31 U/L BILIRUBIN,TOTAL 0.9 0.3 - 1.2 mg/dL EGFR Non-Race Dependent 17 (L) >=60 ml/min/1.73sq.m Magnesium Collection Time: 05/04/25 5:37 AM Result Value Ref Range MAGNESIUM 1.8 1.8 - 2.6 mg/dL CBC auto differential Collection Time: 05/04/25 5:37 AM Result Value Ref Range WBC 6.8 4 - 11 x10E9/L RBC Count 2.61 (L) 3.8 - 5.2 X10E12/L Hemoglobin 7.6 (L) 11.7 - 15.5 g/dL Hematocrit 22.5 (L) 35 - 47 % MCV 86 80 - 100 fL MCH 29.3 27 - 34 pg MCHC 33.9 32 - 36 g/dL RDW 18.8 (H) 11.5 - 15 % Platelet Count 161 150 - 450 X10E9/L MPV 10.0 7 - 12 fL Neutrophils % 67.0 % Lymphocytes % 23.4 % Monocytes % 6.7 % Eosinophils % 2.3 % Basophils % 0.6 % Neutrophils Absolute (A) 4.5 1.5 - 6.6 10*3/uL Lymphocytes Absolute 1.6 1.0 - 3.5 10*3/uL Monocytes Absolute 0.5 0.0 - 0.9 10*3/uL Eosinophils Absolute 0.2 0.0 - 0.4 10*3/uL Basophils Absolute 0.0 0.0 - 0.2 10*3/uL Differential Type AUTOMATED DIFFERENTIAL Radiology Ultrasound pelvic complete Result Date: 05/03/2025 Pelvic ultrasound History:Vaginal bleeding Comparison: Findings: Transabdominal imaging was performed of the pelvis. Patient is status post hysterectomy and bilateral oophorectomy. No free fluid in the pelvis. No definite pelvic mass. Impression: * Unremarkable transabdominal ultrasound of the pelvis. Finalized by Duke Bob MD on 05/03/2025 12:40 PM HOSPITAL PROBLEM LIST Principal Problem: Acute upper GI bleed Active Problems: Hypertension Type 2 diabetes mellitus with diabetic polyneuropathy, with long-term current use of insulin ([facility]) Vitamin B12 deficiency Hyperlipidemia Hyperkalemia Weakness Paroxysmal atrial fibrillation ([facility]) Iron deficiency anemia due to chronic blood loss Vaginal bleeding Left lower lobe pulmonary infiltrate Acute kidney injury superimposed on stage 3b chronic kidney disease ([facility]) ASSESSMENT & PLAN Acute upper GI bleed -hold blood thinners -last dose of eliquis was 8/3 -iron daily -Protonix drip -H&H every 8 hours -transfuse 1 unit of blood -general surgery consulted- bowel prep today, colonoscopy tomorrow -CT ab/pelvis- Severe aortoiliac and mesenteric atherosclerotic changes, lipitor/thinners currentlyon hold Vaginal bleeding -check ultrasound abdomen pelvis -unremarkable -swimmer consulted - do not feel this is swimmer etiology Left lower lobe infiltrate community acquired -recently treated -add inflammatory markers if those are within normal limits will not start antibiotics -encourage cough and deep breathe -on room air Weakness/fatigue -PT and OT to see Acute on Chronic CKD stage IIIB Deficiency anemia secondary to chronic disease -follows with Oncology did review last note from 2025 as to which she received Aranesp every 2 weeks for anemia -also received IV Feraheme on 03/05 and 613 -follows with Nephrology outpatient -low threshold for getting Nephrology involved -baseline kidney function does appear in the high 2 range 1.99 April 12 2.38 April 11 2.9 for April 10 was 3.0 April 08 -intake and output daily weights -bladder scan was greater than 600- marino placed -creatinine improved with marino Type 2 DM with diabetic polyneuropathy with manager intermediate insulin use -continue with Lantus and a.c. and HS Accu-Cheks with sliding scale coverage -dietitian to follow Coronary artery disease Paroxysmal AFib Hypertension Hyperlipidemia Chronic heart failure with preserved ejection fraction Status post PCI to right coronary artery during a setting of inferior STEMI on 08/23 -reviewed cardiology note from 03/10/2025 discussed with patient no more indication for PCI or further cardiac testing -continue on lunchroom monitor -continue on amiodarone and Lopressor -holding thinners for now Recent subdural hematoma discharged on 04/12 from [facility] -this was after a trip & fall -Neurosurgery was following -keppra was ordered for seven days for seizure prophylaxis -keep BP < 140 systolic -was ok to resume anticoagulation after 10 days of stable head CT (04/18) would have been ok to resume 04/28 -Ct brain stable left frontal scalp hematoma Chronic B12 deficiency -on Lyrica -follows with Neurology reviewed note from 04/06/2025 at that time it does look like Lyrica was changed to 75 mg 3 times a day and 150 mg at night as well as decrease Eliquis to 2.5 mg twice a day Obesity BMI 40 -dietitian to follow Transaminitis -trend suspect reactive -get acute hepatitis panel -negative -did have CT abdomen in ER Although bile duct appears somewhat prominent, this may represent reservoir effect secondary to remote cholecystectomy. -No focal hepatic or splenic abnormality on imaging Hyperkalemia -resolved -monitor daily. Hyponatremia -monitor closely was given fluids -improving -is on diuretics normally -urine osmol, serum osmol, urine sodium DC planning: SNF . Medically Ready for Discharge: Anticipated in 2-4 Days DANIELLE Baig 05/04/2025 10:16 AM [facility] Internal Medicine 7AM-7PM & 7PM-7AM: EpicChat or page through On-Call Finder. DANIELLE Baig 05/04/25 1345 I, Laina Rome MD, personally performed the face to face diagnostic evaluation on this patient. I have reviewed the CLAIRE's History, Exam, and MDM and agree with the assessment and plan as written. I have reviewed all laboratory findings and imaging reports/films. Dr Laina Rome MD, MRCP 05/04/2025 5:29 PM * IVONE Mckee - 05/03/2025 1:18 PM EDT NUTRITION ADULT INITIAL EVALUATION NUTRITION ASSESSMENT Reason To Be Seen: Nutritional trigger for unplanned weight loss and pressure injury Hospital Occurrences: Pt admitted with Upper GI bleed, Admit Diagnosis: Patient Active Problem List Diagnosis Palpitations Hypertension Normocytic anemia Arthritis BMI 40.0-44.9, adult ([facility]) Cervical spondylosis without myelopathy Chronic pain Type 2 diabetes mellitus with diabetic polyneuropathy, with long-term current use of insulin ([facility]) Former smoker Gout Polyneuropathy Vitamin B12 deficiency Vitamin D deficiency Over weight S/P lumbar discectomy Acute kidney injury superimposed on CKD Depression Hyperlipidemia Osteoporosis Disorder of sacrum Primary osteoarthritis of right hip Lumbosacral spondylosis without myelopathy Stage 3b chronic kidney disease (CKD) ([facility]) Hyperkalemia Gastroenteritis C. difficile colitis Ischemic bowel disease Personal history of colonic polyps Fundic gland polyposis of stomach Polyp of transverse colon Spinal stenosis of lumbar region with neurogenic claudication Restless leg syndrome Pneumonia of both lower lobes due to infectious organism Weakness ASCVD (arteriosclerotic cardiovascular disease) Paroxysmal atrial fibrillation ([facility]) Bilateral lower extremity edema Anemia of chronic disease Iron deficiency anemia due to chronic blood loss ERRONEOUS ENCOUNTER--DISREGARD Fall, initial encounter Severe malnutrition Acute upper GI bleed Vaginal bleeding Left lower lobe pulmonary infiltrate Acute kidney injury superimposed on stage 3b chronic kidney disease ([facility]) Past Medical History: Past Medical History: Diagnosis Date Anemia Angina pectoris Arthritis C. difficile colitis 06/2023 still tx 08/08/23 Chronic kidney disease Chronic pain disorder Depression Diabetes mellitus type 2, controlled ([facility]) GERD (gastroesophageal reflux disease) Hyperlipidemia Hypertension Ischemic bowel disease Kidney stone hx Low back pain Myocardial infarction ([facility]) Obesity Osteoarthritis Osteoporosis Palpitations Paroxysmal A-fib ([facility]) Pneumonia 08/2024 Visual impairment Past Surgical History: Past Surgical History: Procedure Laterality Date APPENDECTOMY 1955 BACK SURGERY x 2 BREAST BIOPSY Left 06/03/2001 BREAST BIOPSY Left 1998 BREAST BIOPSY Left 2005 CARDIAC CATHETERIZATION CHOLECYSTECTOMY 1974 COLONOSCOPY N/A 05/22/2023 Performed by Triston Sanford DO at [facility] CORONARY ANGIOPLASTY WITH STENT PLACEMENT 08/10/2024 x1 ESOPHAGOGASTRODUODENOSCOPY N/A 05/22/2023 Performed by Triston Sanford DO at [facility] HERNIA REPAIR HYSTERECTOMY 1981 INJECTION BLOCK EPIDURAL CAUDAL STEROID N/A 11/01/2023 Performed by Xu Campa MD at [facility] INJECTION BLOCK NERVE MEDIAL BRANCH: bilat L 4/5 5/ Bilateral 06/21/2023 Performed by Xu Campa MD at [facility] INJECTION BLOCK NERVE MEDIAL BRANCH: bilat L 4/5 / Bilateral 02/22/2023 Performed by Xu Campa MD at [facility] INJECTION BLOCK SACROILIAC JOINT Right 02/07/2024 Performed by Xu Campa MD at [facility] INJECTION BLOCK SACROILIAC JOINT Right 09/13/2023 Performed by Xu Campa MD at [facility] INJECTION BLOCK SACROILIAC JOINT Right 11/09/2022 Performed by Xu Campa MD at [facility] INJECTION BURSA LARGE JOINT: right hip Right 12/28/2022 Performed by Xu Campa MD at [facility] INJECTION BURSA LARGE JOINT: right hip Right 07/19/2023 Performed by Xu Campa MD at [facility] OOPHORECTOMY ROTATOR CUFF REPAIR x 3 TUBAL LIGATION 1975 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 Allergies: Allergies Allergen Reactions Codeine affected my breathing , tylenol #3 specifically Sulfa (Sulfonamide Antibiotics) GI Disturbance Sulfamethoxazole-Trimethoprim Other reaction(s): Vomiting Trimethobenzamide Nutrition Focused Physical Findings-- noted pressure injury on coccyx and right calf As per nutrition flow sheet- Skin: Skin Color: Prem, Ecchymosis, [place] (05/03/25 1210) Skin Temp: Warm, Dry (05/03/25 1210) Skin Integrity: Bruising (scattered throughout body.) (05/02/252020) Wound: Wound 04/10/25 Skin Tear Coccyx-Site Assessment: Red (05/03/25 1100) Gastrointestinal: Edema: RLE Edema: +4 (05/03/25 121) LLE Edema: +4 (05/03/25 121) Labs: Results from last 3 days Lab Units 05/03/25 0414 05/02/252105 SODIUM mmol/L 129* 126* POTASSIUM mmol/L 4.4 5.5* CHLORIDE mmol/L 98 93* CO2 mmol/L 22 24 BUN mg/dL 97* 134* CREATININE mg/dL 3.65* 3.79* CALCIUM mg/dL 8.1* 8.1* ALBUMIN g/dL 2.4* 2.8* ALK PHOS U/L 137* 166* ALT U/L 142* 141* AST U/L 248* 225* Results from last 7 days Lab Units 05/03/25 1159 05/03/25 0414 05/03/25 0137 05/02/25 210 BEDSIDE GLUCOSE mg/dL 77 -- 187* -- GLUCOSE mg/dL -- 89 -- 231* Results from last 3 days Lab Units 05/03/25 0414 05/02/25 210 MAGNESIUM mg/dL 1.8 1.9 No data from last 3 days. Results from last 3 days Lab Units 05/03/25 04105/02/252105 WBC x10E9/L 11.2* 18.1* HEMOGLOBIN g/dL 6.7* 7.4* HEMATOCRIT % 20.4* 22.6* PLATELETS X10E9/L 195 202 MCV fL 88 88 Lab Results Component Value Date VCDPYUOP28 >1,500 (H) 09/20/2024 Lab Results Component Value Date FOLATE 12.2 09/20/2024 Lab Results Component Value Date IRON 78 03/22/2025 TIBC 305 03/22/2025 FERRITIN 346 (H) 03/22/2025 Lab Results Component Value Date IRONSAT 26 03/22/2025 Lab Results Component Value Date HGBA1C 6.4 06/07/2021 Lab Results Component Value Date CHOL 84 (L) 02/08/2025 Lab Results Component Value Date HDL 25 (L) 02/08/2025 No results found for: LIPIDPROF No results found for: VIDHYDROX Medications/ Parenteral: Medications Prior to Admission Medication Sig Dispense Refill Last Dose/Taking ACCU-CHEK OLY PLUS TEST STRP strip 05/02/2025 Noon acetaminophen (TYLENOL ARTHRITIS) 650 mg 8 hr tablet Take 1 tablet (650 mg total) by mouth every 8 (eight) hours as needed for pain. 05/02/2025 Morning allopurinol (ZYLOPRIM) 300 mg tablet Take 1 tablet (300 mg total) by mouth in the morning. 05/02/2025Morning amiodarone (PACERONE) 200 mg tablet Take 1 tablet (200 mg total) by mouth in the morning and 1 tablet (200 mg total) before bedtime. 05/02/2025 Morning apixaban (ELIQUIS) 5 mg tablet Take 1 tablet (5 mg total) by mouth in the morning and 1 tablet (5 mg total) before bedtime. 05/02/2025 Morning clopidogreL (PLAVIX) 75 mg tablet Take 1 tablet (75 mg total) by mouth in the morning. 30 tablet 5 05/02/2025 Morning cyanocobalamin (VITAMIN B12) 1,000 mcg tablet, sublingual Place 1 tablet (1,000 mcg total) under the tongue in the morning. 90 tablet 3 05/02/2025 Morning ferrous sulfate 325 (65 FE) mg tablet Take 1 tablet (325 mg total) by mouth daily with breakfast. 05/02/2025 Morning FREESTYLE CUONG 2 SENSOR kit 05/02/2025 Morning insulin degludec (TRESIBA FLEXTOUCH U-100) 100 unit/mL (3 mL) insulin pen Inject 20 Units under theskin nightly. 05/01/2025 Evening insulin lispro (HumaLOG) 100 unit/mL insulin pen Inject under the skin. Sliding scale based on meals and blood sugar 05/02/2025 Morning metoprolol tartrate (LOPRESSOR) 25 mg tablet TAKE 1 TABLET BY MOUTH TWICE DAILY (MORNING AND BEFOREBEDTIME) 180 tablet 3 05/02/2025 Morning mupirocin (BACTROBAN) 2 % ointment Apply 1 Application topically in the morning and 1 Application before bedtime. 05/02/2025 Morning oxybutynin XL (DITROPAN-XL) 5 mg 24 hr tablet Take 1 tablet (5 mg total) by mouth in the morning. 05/02/2025 Morning pantoprazole (PROTONIX) 40 mg EC tablet Take 1 tablet (40 mg total) by mouth daily. 90 tablet 3 05/01/2025 Noon pregabalin (LYRICA) 75 mg capsule Take 1 capsule (75 mg total) by mouth 3 (three) times a day AND 2capsules (150 mg total) nightly. 450 capsule 1 05/02/2025 Morning semaglutide (OZEMPIC) 0.25 mg or 0.5 mg(2 mg/1.5 mL) pen injector Inject 0.5 mg under the skin oncea week. Every saturday05/01/2025 Morning atorvastatin (LIPITOR) 80 mg tablet Take 1 tablet (80 mg total) by mouth in the morning. (Patient not taking: Reported on 05/02/2025) More than a month isosorbide mononitrate (IMDUR) 30 mg 24 hr tablet Take 1 tablet (30 mg total) by mouth daily. (Patient not taking: Reported on 05/02/2025) Unknown polyethylene glycol (GLYCOLAX) 17 gram packet Take 17 g by mouth daily as needed (constipation). (Patient not taking: Reported on 05/02/2025) Unknown torsemide (DEMADEX) 10 mg tablet Take 1 tablet (10 mg total) by mouth daily. (Patient not taking: Reported on 05/02/2025) More than a month Current Facility-Administered Medications Medication Dose Route Frequency Provider Last Rate Last Admin acetaminophen (TYLENOL) tablet 650 mg 650 mg oral Q6H PRN Luigi Reese APRN-DWIGHT amiodarone (PACERONE) tablet 200 mg 200 mg oral BID DANIELLE Hawkins 200 mg at 08/04/25 0832 dextrose (GLUTOSE) 40 % gel 15 g 15 g oral PRN Luigi D Krotzer, ESTIMATOR AND DRAFTER SUPERVISOR-ACADEMIC AFFAIRS MANAGER dextrose 5 % (D5W) infusion 100 mL/hr intravenous Continuous PRN Luigi D Krotzer, ESTIMATOR AND DRAFTER SUPERVISOR-ACADEMIC AFFAIRS MANAGER dextrose 50 % in water (D50W) 50% solution 25 mL 25 mL intravenous PRN Luigi D Krotzer, ESTIMATOR AND DRAFTER SUPERVISOR-ACADEMIC AFFAIRS MANAGER ferrous sulfate tablet 325 mg 325 mg oral Daily with breakfast Luigi D Krotzer, ESTIMATOR AND DRAFTER SUPERVISOR-ACADEMIC AFFAIRS MANAGER 325 mg at 05/03/25 0832 glucagon HCL injection 1 mg 1 mg intramuscular PRN Luigi D Krotzer, ESTIMATOR AND DRAFTER SUPERVISOR-ACADEMIC AFFAIRS MANAGER insulin glargine (LANTUS, SEMGLEE) injection pen 20 Units 20 Units subcutaneous Nightly Luigi D Krotzer, ESTIMATOR AND DRAFTER SUPERVISOR-ACADEMIC AFFAIRS MANAGER 20 Units at 05/03/25 0208 insulin lispro (HumaLOG) injection 2-10 Units 2-10 Units subcutaneous With meals and nightly Luigi DKrotzer, ESTIMATOR AND DRAFTER SUPERVISOR-ACADEMIC AFFAIRS MANAGER 2 Units at 05/03/25 0209 magnesium sulfate IVPB 2000 mg/50 mL in iso-osmotic water (40 mg/mL premix) 2,000 mg intravenous PRN Luigi D Krotzer, ESTIMATOR AND DRAFTER SUPERVISOR-ACADEMIC AFFAIRS MANAGER magnesium sulfate IVPB 4000 mg/100 mL in iso-osmotic water (40 mg/mL premix) 4,000 mg intravenous PRN Luigi D Krotzer, ESTIMATOR AND DRAFTER SUPERVISOR-ACADEMIC AFFAIRS MANAGER metoprolol tartrate (LOPRESSOR) tablet 25 mg 25 mg oral BID Luigi D Krotzer, ESTIMATOR AND DRAFTER SUPERVISOR-ACADEMIC AFFAIRS MANAGER 25 mg at 05/03/25 0205 ondansetron (PF) (ZOFRAN) injection 4 mg 4 mg intravenous Q6H PRN Luigi D Krotzer, ESTIMATOR AND DRAFTER SUPERVISOR-ACADEMIC AFFAIRS MANAGER pantoprazole (PROTONIX) 80 mg in sodium chloride 0.9 % 100 mL (0.8 mg/mL) infusion 8 mg/hr intravenous Continuous Ivania Trevino, ESTIMATOR AND DRAFTER SUPERVISOR-ACADEMIC AFFAIRS MANAGER 10 mL/hr at 05/03/25 0830 8 mg/hr at 05/03/25 0830 pregabalin (LYRICA) capsule 75 mg 75 mg oral TID Luigi D Krotzer, ESTIMATOR AND DRAFTER SUPERVISOR-ACADEMIC AFFAIRS MANAGER And pregabalin (LYRICA) capsule 150 mg 150 mg oral Nightly Luigi D Krotzer, ESTIMATOR AND DRAFTER SUPERVISOR-ACADEMIC AFFAIRS MANAGER 150 mg at 05/03/25 0205 sodium chloride 0.9 % flush 3 mL 3 mL intravenous PRN Luigi D Krotzer, ESTIMATOR AND DRAFTER SUPERVISOR-ACADEMIC AFFAIRS MANAGER sodium chloride 0.9 % flush 3 mL 3 mL intravenous Q12H HUNG Luigi D Krotzer, ESTIMATOR AND DRAFTER SUPERVISOR- ACADEMIC AFFAIRS MANAGER 3 mL at 05/03/25 0205 sodium chloride 0.9 % flush bag 25 mL intravenous PRN Luigi D Krotzer, ESTIMATOR AND DRAFTER SUPERVISOR-ACADEMIC AFFAIRS MANAGER sodium chloride 0.9 % infusion 20 mL/hr intravenous Continuous PRN Luigi D Krotzer, ESTIMATOR AND DRAFTER SUPERVISOR-ACADEMIC AFFAIRS MANAGER sodium chloride 0.9 % infusion 75 mL/hr intravenous Continuous Luigi D Krotzer, ESTIMATOR AND DRAFTER SUPERVISOR-ACADEMIC AFFAIRS MANAGER 75 mL/hr at05/03/25 0530 Rate Verify at 05/03/25 0530 sodium chloride 0.9 % infusion 20 mL/hr intravenous Continuous PRN Bethanie Marquez, ESTIMATOR AND DRAFTER SUPERVISOR-ACADEMIC AFFAIRS MANAGER Nutrition Findings/Summary: noted gradual wt gain to normal wt status of 220 -225# Anthropometrics: Ht Readings from Last 1 Encounters: 05/03/25 157.5 cm (5' 2 ) Wt Readings from Last 10 Encounters: 05/03/25 105.7 kg (233 lb) 04/09/25 97.1 kg (214 lb 1.1 oz) 04/08/25 96.6 kg (213 lb) 04/07/25 96.6 kg (213 lb) 04/05/25 97.7 kg (215 lb 6.4 oz) 03/25/25 100.1 kg (220 lb 9.6 oz) 03/11/25 102.3 kg (225 lb 9.6 oz) 03/10/25 101.6 kg (224 lb) 03/05/25 101.4 kg (223 lb 9.6 oz) 02/25/25 100.6 kg (221 lb 12.8 oz) [place] Body Weight: 50 kg Percent [place] Body Weight: 211 % Body Mass Index: Body mass index is 42.62 kg/m??. BMI Category: Obese class 3 (> or = 40.00) Diet/ Nutrition Order Review: Dietary Orders (From admission, onward) Start Ordered 05/03/25 1211 Adult diet Clear Liquid Diet effective now Question: Diet Type: Answer: Clear Liquid 05/03/25 1210 Diet Intakes: unrecorded at this time [] 75-100% [] 50-75% [] 25-50% [] <25% [] NPO [] Unable to assess Intake/ Output Last 24 hrs: Intake/Output Summary (Last 24 hours) at 05/03/2025 1319 Last data filed at 05/03/2025 1240 Gross per 24 hour Intake 701.6 ml Output 917 ml Net -215.4 ml Oral Supplemental Intake/ Acceptance: just started [] 75-100% [] 50-75% [] 25-50% [] <25% [] NPO [] Unable to assess [place] Body Weight (50 kg) used to estimate nutrition needs Estimated Energy Needs: ~0217-4535 kcals daily. Method and weight used: 28-32 kcal/kg IBW Estimated Protein Needs: ~60-100 grams daily. Method and weight used: 1.2-2.0 gm/kg IBW Estimated Fluid Needs: ~7258-8951 ml daily. Method Used: 1 ml/kcal General Needs: Malnutrition Status: Malnutrition Present: No NUTRITION DIAGNOSIS: Intake Diagnosis: Increased nutrient needs Protein/hMB (NI 5.1) related to open wound on coccyx andcalf as evidenced by delayed wound healing. NUTRITION INTERVENTIONS: Coordination of nutrition care: spoke with RN Started Toño BID to provide for each packet/drink HMB, 90 calories, 7g L- Arginine and 7g L-Glutamine amino acids and 2.5g protein (collagen). GOALS: Patient to meet calorie and protein needs NUTRITION MONITORING AND EVALUATION: Will monitor po intakes, supplement acceptance, skin integrity, Weights, Nutrition Related Labs, POC & Follow. [x] Progressing toward goal [] Not progressing [] Progress toward goal declining [] Goal achieved Rosanna Ponce RD.,LD. Clinical Dietitian [facility] [phone] 05/03/25 documented in this encounter H&P Notes * Kelvin Myles MD - 05/07/2025 11:45 AM EDT HISTORY AND PHYSICAL INTERVAL NOTE: Irma Caceres 1945 [id number] H&P reviewed. The patient was examined and there are no changes to the H&P. Kelvin Myles MD Source Note - Kelvin Myles MD - 05/03/2025 1:25 PM EDT Images from the original note were not included. Chief Complaint: Anemia, melena History of Present Illness: Irma Caceres is a 80 y.o. female who presented to the emergency department due to fatigue. She was recently discharged from the hospital after a fall and urinary tract infection. She returned to the ER due to fatigue as well as report of melanotic stool. Hemoccult stool was positive. She is on Eliquis as well as Plavix. CT abdomen pelvis showed severe aortoiliac and mesenteric atheroscleroticchanges. No acute intra-abdominal process. This morning her hemoglobin dropped to 6.7. She will receive 1 unit PRBC. Patient notes longstanding anemia. Notes longstanding melena due to iron supplementation. Her last EGD and colonoscopy were performed in 2022. Colonoscopy showed diverticulosis and polyps. Duodenitis, gastritis, fundic gland polyps. HPI Review of Systems Constitutional: Negative for fever and chills. Respiratory: Negative for shortness of breath. Cardiovascular: Negative for chest pain and palpitations. Gastrointestinal: Positive for black tarry stool. Negative for nausea, vomiting and abdominal pain. Genitourinary: Negative for dysuria and difficulty urinating. Skin: Negative for rash and wound. Allergic/Immunologic: Negative for immunocompromised state. Neurological: Negative for weakness and light-headedness. Hematological: Does not bruise/bleed easily. Psychiatric/Behavioral: Negative for behavioral problems and confusion. Past Medical History: Diagnosis Date Anemia Angina pectoris Arthritis C. difficile colitis 06/2023 still tx 08/08/23 Chronic kidney disease Chronic pain disorder Depression Diabetes mellitus type 2, controlled ([facility]) GERD (gastroesophageal reflux disease) Hyperlipidemia Hypertension Ischemic bowel disease Kidney stone hx Low back pain Myocardial infarction ([facility]) Obesity Osteoarthritis Osteoporosis Palpitations Paroxysmal A-fib ([facility]) Pneumonia 08/2024 Visual impairment Past Surgical History: Procedure Laterality Date APPENDECTOMY 1955 BACK SURGERY x 2 BREAST BIOPSY Left 06/03/2001 BREAST BIOPSY Left 1997 BREAST BIOPSY Left 2005 CARDIAC CATHETERIZATION CHOLECYSTECTOMY 1974 COLONOSCOPY N/A 05/22/2023 Performed by Triston Sanford DO at [facility] CORONARY ANGIOPLASTY WITH STENT PLACEMENT 08/10/2024 x1 ESOPHAGOGASTRODUODENOSCOPY N/A 05/22/2023 Performed by Triston Sanford DO at [facility] HERNIA REPAIR HYSTERECTOMY 1981 INJECTION BLOCK EPIDURAL CAUDAL STEROID N/A 11/01/2023 Performed by Xu Campa MD at [facility] INJECTION BLOCK NERVE MEDIAL BRANCH: bilat L 4/5 5/ Bilateral 06/21/2023 Performed by Xu Campa MD at [facility] INJECTION BLOCK NERVE MEDIAL BRANCH: bilat L 4/5 5/ Bilateral 02/22/2023 Performed by Xu Campa MD at [facility] INJECTION BLOCK SACROILIAC JOINT Right 02/07/2024 Performed by Xu Campa MD at [facility] INJECTION BLOCK SACROILIAC JOINT Right 09/13/2023 Performed by Xu Campa MD at [facility] INJECTION BLOCK SACROILIAC JOINT Right 11/09/2022 Performed by Xu Campa MD at [facility] INJECTION BURSA LARGE JOINT: right hip Right 12/28/2022 Performed by Xu Campa MD at [facility] INJECTION BURSA LARGE JOINT: right hip Right 07/19/2023 Performed by Xu Campa MD at [facility] OOPHORECTOMY ROTATOR CUFF REPAIR x 3 TUBAL LIGATION 1974 Allergies Allergen Reactions Codeine affected my breathing , tylenol #3 specifically Sulfa (Sulfonamide Antibiotics) GI Disturbance Sulfamethoxazole-Trimethoprim Other reaction(s): Vomiting Trimethobenzamide Current Facility-Administered Medications: acetaminophen (TYLENOL) tablet 650 mg, 650 mg, oral, Q6H PRN, Luigi Reese ESTIMATOR AND DRAFTER SUPERVISOR-ACADEMIC AFFAIRS MANAGER amiodarone (PACERONE) tablet 200 mg, 200 mg, oral, BID, Luigi Reese APRN- DWIGHT, 200 mg at 05/03/25 0832 dextrose (GLUTOSE) 40 % gel 15 g, 15 g, oral, PRN, Luigi Reese ESTIMATOR AND DRAFTER SUPERVISOR-ACADEMIC AFFAIRS MANAGER dextrose 5 % (D5W) infusion, 100 mL/hr, intravenous, Continuous PRN, Luigi Reese ESTIMATOR AND DRAFTER SUPERVISOR-ACADEMIC AFFAIRS MANAGER dextrose 50 % in water (D50W) 50% solution 25 mL, 25 mL, intravenous, PRN, Luigi Reese ESTIMATOR AND DRAFTER SUPERVISOR-ACADEMIC AFFAIRS MANAGER ferrous sulfate tablet 325 mg, 325 mg, oral, Daily with breakfast, Luigi Reese APRN-DWIGHT, 325 mgat 05/03/25 0832 glucagon HCL injection 1 mg, 1 mg, intramuscular, PRN, Luigi Reese, ESTIMATOR AND DRAFTER SUPERVISOR-ACADEMIC AFFAIRS MANAGER insulin glargine (LANTUS, SEMGLEE) injection pen 20 Units, 20 Units, subcutaneous, Nightly, Luigi Reese ESTIMATOR AND DRAFTER SUPERVISOR-ACADEMIC AFFAIRS MANAGER, 20 Units at 05/03/25 0208 insulin lispro (HumaLOG) injection 2-10 Units, 2-10 Units, subcutaneous, With meals and nightly, Luigi Reese ESTIMATOR AND DRAFTER SUPERVISOR-ACADEMIC AFFAIRS MANAGER, 2 Units at 05/03/25 0209 magnesium sulfate IVPB 2000 mg/50 mL in iso-osmotic water (40 mg/mL premix), 2,000 mg, intravenous,PRN, Luigi Floodzer ESTIMATOR AND DRAFTER SUPERVISOR-ACADEMIC AFFAIRS MANAGER magnesium sulfate IVPB 4000 mg/100 mL in iso-osmotic water (40 mg/mL premix), 4,000 mg, intravenous, PRN, Luigi Floodzer, ESTIMATOR AND DRAFTER SUPERVISOR-ACADEMIC AFFAIRS MANAGER metoprolol tartrate (LOPRESSOR) tablet 25 mg, 25 mg, oral, BID, Luigi Reese ESTIMATOR AND DRAFTER SUPERVISOR-ACADEMIC AFFAIRS MANAGER, 25 mg at 05/03/25 0205 ondansetron (PF) (ZOFRAN) injection 4 mg, 4 mg, intravenous, Q6H PRN, Luigi Reese ESTIMATOR AND DRAFTER SUPERVISOR-ACADEMIC AFFAIRS MANAGER pantoprazole (PROTONIX) 80 mg in sodium chloride 0.9 % 100 mL (0.8 mg/mL) infusion, 8 mg/hr, intravenous, Continuous, Ivania Trevino APRN-DWIGHT, Last Rate: 10 mL/hr at 05/03/25 0830, 8 mg/hr at 05/03/25 0830 pregabalin (LYRICA) capsule 75 mg, 75 mg, oral, TID AND pregabalin (LYRICA) capsule 150 mg, 150mg, oral, Nightly, Luigi Reese ESTIMATOR AND DRAFTER SUPERVISOR-ACADEMIC AFFAIRS MANAGER, 150 mg at 05/03/25 0205 sodium chloride 0.9 % flush 3 mL, 3 mL, intravenous, PRN, Luigi D Krotzer, ESTIMATOR AND DRAFTER SUPERVISOR-ACADEMIC AFFAIRS MANAGER sodium chloride 0.9 % flush 3 mL, 3 mL, intravenous, Q12H HUNG, Luigi D Krotzer, ESTIMATOR AND DRAFTER SUPERVISOR-ACADEMIC AFFAIRS MANAGER, 3 mL at 05/03/25 0205 sodium chloride 0.9 % flush bag, 25 mL, intravenous, PRN, Luigi D Krotzer, ESTIMATOR AND DRAFTER SUPERVISOR-ACADEMIC AFFAIRS MANAGER sodium chloride 0.9 % infusion, 20 mL/hr, intravenous, Continuous PRN, Luigi D Krotzer, ESTIMATOR AND DRAFTER SUPERVISOR-ACADEMIC AFFAIRS MANAGER sodium chloride 0.9 % infusion, 75 mL/hr, intravenous, Continuous, Luigi D Krotzer, ESTIMATOR AND DRAFTER SUPERVISOR-ACADEMIC AFFAIRS MANAGER, Last Rate: 75 mL/hr at 05/03/25 0530, Rate Verify at 05/03/25 0530 sodium chloride 0.9 % infusion, 20 mL/hr, intravenous, Continuous PRN, Bethanie Marquez, ESTIMATOR AND DRAFTER SUPERVISOR-ACADEMIC AFFAIRS MANAGER Social History Socioeconomic History Marital status: Spouse name: Not on file Number of children: Not on file Years of education: Not on file Highest education level: Not on file Occupational History Not on file Tobacco Use Smoking status: Former Current packs/day: 0.00 Average packs/day: 0.5 packs/day for 10.0 years (5.0 ttl pk-yrs) Types: Cigarettes Start date: 1974 Quit date: 1984 Years since quittin.6 Smokeless tobacco: Never Vaping Use Vaping status: Never Used Substance and Sexual Activity Alcohol use: Not Currently Drug use: No Sexual activity: Defer Partners: Male control/protection: Surgical Other Topics Concern Caffeine Use No Social History Narrative Not on file Social Drivers of Health Financial Resource Strain: Medium Risk (05/02/2025) Overall Financial Resource Strain (CARDIA) Difficulty of Paying Living Expenses: Somewhat hard Food Insecurity: No Food Insecurity (05/03/2025) Hunger Screening Food Insecurity - Worry: Never True Food Insecurity - Inability: Never True Recent Concern: Food Insecurity - Food Insecurity Present (05/02/2025) Hunger Screening Food Insecurity - Worry: Sometimes True Food Insecurity - Inability: Sometimes True Transportation Needs: Unmet Transportation Needs (05/02/2025) PRAPARE - Transportation Lack of Transportation (Medical): Yes Lack of Transportation (Non-Medical): Yes Physical Activity: Inactive (09/19/2024) Exercise Vital Sign Days of Exercise per Week: 0 days Minutes of Exercise per Session: 0 min Stress: Not on file Social Connections: Not on file Interpersonal Safety: Not At Risk (05/02/2025) Humiliation, Afraid, Rape, and Kick questionnaire Fear of Current or Ex-Partner: No Emotionally Abused: No Physically Abused: No Sexually Abused: No Housing Instability: Low Risk (05/02/2025) Housing Instability Housing Instability: No Family History Problem Relation Age of Onset Colon cancer Mother Brain cancer (CMS-HCC) Mother Heart disease Mother Diabetes Mother Hyperlipidemia Mother Hypertension Mother Cancer Father Lung cancer Father Breast cancer Sister 62 Cancer Sister Hypertension Sister Hyperlipidemia Sister Diabetes Sister Splenomegaly Sister Lung disease Sister Cancer Brother Heart disease Brother Stroke Brother Hyperlipidemia Brother Hypertension Brother Lung cancer Brother Aries Breast Cancer Neg Hx Physical Exam Vitals reviewed. Constitutional: Appearance: Normal appearance. HENT: Head: Normocephalic and atraumatic. Eyes: Pupils: Pupils are equal, round, and reactive to light. Cardiovascular: Rate and Rhythm: Normal rate. Pulmonary: Effort: Pulmonary effort is normal. Abdominal: General: There is no distension. Palpations: Abdomen is soft. Tenderness: There is no abdominal tenderness. Musculoskeletal: General: No swelling. Skin: General: Skin is warm and dry. Neurological: Mental Status: She is alert and oriented to person, place, and time. Mental status is at baseline. Psychiatric: Mood and Affect: Mood normal. Behavior: Behavior normal. Vital Signs: Blood pressure (!) 88/46, pulse 61, temperature 36.8 ??C (98.2 ??F), temperature source Oral, resp. rate 16, height 157.5 cm (5' 2 ), weight 105.7 kg (233 lb), SpO2 94%, not currently . Respiratory Source: O2 Device: None (Room air) Admission Weight: Weight: 99.2 kg (218 lb 11.2 oz) Labs: Lab Results Component Value Date WBC 11.2 (H) 05/03/2025 HGB 6.7 (LL) 05/03/2025 HCT 20.4 (L) 05/03/2025 MCV 88 05/03/2025 PLT 195 05/03/2025 Lab Results Component Value Date GLU 77 05/03/2025 CALCIUM 8.1 (L) 05/03/2025 K 4.4 05/03/2025 CO2 22 05/03/2025 CL 98 05/03/2025 BUN 97 (H) 05/03/2025 CREATININE 3.65 (H) 05/03/2025 No results found for: AMYLASE Lab Results Component Value Date LIPASE 28 04/07/2025 Lab Results Component Value Date ALT 142 (H) 05/03/2025 AST 248 (H) 05/03/2025 ALKPHOS 137 (H) 05/03/2025 Lab Results Component Value Date INR 1.7 (H) 04/08/2025 INR 2.0 (H) 04/07/2025 INR 2.1 (H) 09/18/2024 PROTIME 19.5 (H) 04/08/2025 PROTIME 23.0 (H) 04/07/2025 PROTIME 24.0 (H) 09/18/2024 Assessment: Irma Caceres is a 80 y.o.female with anemia and melena. positive fecal occult blood Eliquis/plavix last dose 05/02 Plan: Plan for EGD and colonoscopy on 05/05/2025 Evaluation included: Preparing to see the patient (e.g., review of tests) Obtaining and/or reviewing separately obtained history Performing a medically appropriate examination and/or evaluation Counseling and educating the patient/family/caregiver Referring and communicating with other health foster care worker Kelvin Myles MD [facility] [place] * Kelvin Myles MD - 05/05/2025 1:55 PM EDT HISTORY AND PHYSICAL INTERVAL NOTE: Irma Caceres 1945 [id number] H&P updated. The patient was examined and poor bowel prep. Not clear. Will do only EGD today. The reasons for surgery, alternatives to surgery, and natural history of the disease without surgery were addressed with the patient. We discussed the potential risks and benefits of the surgery. I gave ample opportunity for the patient to ask questions which I answered to their apparent satisfaction. She seemed to understand and provided consent. Kelvin Myles MD Source Note - Kelvin Myles MD - 05/03/2025 1:25 PM EDT Images from the original note were not included. Chief Complaint: Anemia, melena History of Present Illness: Irma Caceres is a 80 y.o. female who presented to the emergency department due to fatigue. She was recently discharged from the hospital after a fall and urinary tract infection. She returned to the ER due to fatigue as well as report of melanotic stool. Hemoccult stool was positive. She is on Eliquis as well as Plavix. CT abdomen pelvis showed severe aortoiliac and mesenteric atheroscleroticchanges. No acute intra-abdominal process. This morning her hemoglobin dropped to 6.7. She will receive 1 unit PRBC. Patient notes longstanding anemia. Notes longstanding melena due to iron supplementation. Her last EGD and colonoscopy were performed in 2022. Colonoscopy showed diverticulosis and polyps. Duodenitis, gastritis, fundic gland polyps. HPI Review of Systems Constitutional: Negative for fever and chills. Respiratory: Negative for shortness of breath. Cardiovascular: Negative for chest pain and palpitations. Gastrointestinal: Positive for black tarry stool. Negative for nausea, vomiting and abdominal pain. Genitourinary: Negative for dysuria and difficulty urinating. Skin: Negative for rash and wound. Allergic/Immunologic: Negative for immunocompromised state. Neurological: Negative for weakness and light-headedness. Hematological: Does not bruise/bleed easily. Psychiatric/Behavioral: Negative for behavioral problems and confusion. Past Medical History: Diagnosis Date Anemia Angina pectoris Arthritis C. difficile colitis 06/2023 still tx 08/08/23 Chronic kidney disease Chronic pain disorder Depression Diabetes mellitus type 2, controlled ([facility]) GERD (gastroesophageal reflux disease) Hyperlipidemia Hypertension Ischemic bowel disease Kidney stone hx Low back pain Myocardial infarction ([facility]) Obesity Osteoarthritis Osteoporosis Palpitations Paroxysmal A-fib ([facility]) Pneumonia 08/2024 Visual impairment Past Surgical History: Procedure Laterality Date APPENDECTOMY 1955 BACK SURGERY x 2 BREAST BIOPSY Left 06/03/2001 BREAST BIOPSY Left 1998 BREAST BIOPSY Left 2005 CARDIAC CATHETERIZATION CHOLECYSTECTOMY 1974 COLONOSCOPY N/A 05/22/2023 Performed by Triston Sanford DO at [facility] CORONARY ANGIOPLASTY WITH STENT PLACEMENT 08/10/2024 x1 ESOPHAGOGASTRODUODENOSCOPY N/A 05/22/2023 Performed by Triston Sanford DO at [facility] HERNIA REPAIR HYSTERECTOMY 1981 INJECTION BLOCK EPIDURAL CAUDAL STEROID N/A 11/01/2023 Performed by Xu Campa MD at [facility] INJECTION BLOCK NERVE MEDIAL BRANCH: bilat L 4/5 5/ Bilateral 06/21/2023 Performed by Xu Campa MD at [facility] INJECTION BLOCK NERVE MEDIAL BRANCH: bilat L 4/5 5/1 Bilateral 02/22/2023 Performed by Xu Campa MD at [facility] INJECTION BLOCK SACROILIAC JOINT Right 02/07/2024 Performed by Xu Campa MD at [facility] INJECTION BLOCK SACROILIAC JOINT Right 09/13/2023 Performed by Xu Campa MD at [facility] INJECTION BLOCK SACROILIAC JOINT Right 11/09/2022 Performed by Xu Campa MD at [facility] INJECTION BURSA LARGE JOINT: right hip Right 12/28/2022 Performed by Xu Campa MD at [facility] INJECTION BURSA LARGE JOINT: right hip Right 07/19/2023 Performed by Xu Campa MD at [facility] OOPHORECTOMY ROTATOR CUFF REPAIR x 3 TUBAL LIGATION 1974 Allergies Allergen Reactions Codeine affected my breathing , tylenol #3 specifically Sulfa (Sulfonamide Antibiotics) GI Disturbance Sulfamethoxazole-Trimethoprim Other reaction(s): Vomiting Trimethobenzamide Current Facility-Administered Medications: acetaminophen (TYLENOL) tablet 650 mg, 650 mg, oral, Q6H PRN, Luigi Reese ESTIMATOR AND DRAFTER SUPERVISOR-ACADEMIC AFFAIRS MANAGER amiodarone (PACERONE) tablet 200 mg, 200 mg, oral, BID, Luigi Reese ESTIMATOR AND DRAFTER SUPERVISOR- ACADEMIC AFFAIRS MANAGER, 200 mg at 05/03/25 0832 dextrose (GLUTOSE) 40 % gel 15 g, 15 g, oral, PRN, Luigi Reese, ESTIMATOR AND DRAFTER SUPERVISOR-ACADEMIC AFFAIRS MANAGER dextrose 5 % (D5W) infusion, 100 mL/hr, intravenous, Continuous PRN, Luigi Reese ESTIMATOR AND DRAFTER SUPERVISOR-ACADEMIC AFFAIRS MANAGER dextrose 50 % in water (D50W) 50% solution 25 mL, 25 mL, intravenous, PRN, Luigi Reese ESTIMATOR AND DRAFTER SUPERVISOR-ACADEMIC AFFAIRS MANAGER ferrous sulfate tablet 325 mg, 325 mg, oral, Daily with breakfast, Luigi Reese APRN-DWIGHT, 325 mgat 05/03/25 0832 glucagon HCL injection 1 mg, 1 mg, intramuscular, PRN, Luigi Reese, ESTIMATOR AND DRAFTER SUPERVISOR-ACADEMIC AFFAIRS MANAGER insulin glargine (LANTUS, SEMGLEE) injection pen 20 Units, 20 Units, subcutaneous, Nightly, Luigi Reese ESTIMATOR AND DRAFTER SUPERVISOR-ACADEMIC AFFAIRS MANAGER, 20 Units at 05/03/25 0208 insulin lispro (HumaLOG) injection 2-10 Units, 2-10 Units, subcutaneous, With meals and nightly, Luigi Reese ESTIMATOR AND DRAFTER SUPERVISOR-ACADEMIC AFFAIRS MANAGER, 2 Units at 05/03/25 0209 magnesium sulfate IVPB 2000 mg/50 mL in iso-osmotic water (40 mg/mL premix), 2,000 mg, intravenous,PRN, Luigi Floodzer, ESTIMATOR AND DRAFTER SUPERVISOR-ACADEMIC AFFAIRS MANAGER magnesium sulfate IVPB 4000 mg/100 mL in iso-osmotic water (40 mg/mL premix), 4,000 mg, intravenous, PRN, Luigi Floodzer, ESTIMATOR AND DRAFTER SUPERVISOR-ACADEMIC AFFAIRS MANAGER metoprolol tartrate (LOPRESSOR) tablet 25 mg, 25 mg, oral, BID, Luigi Reese ESTIMATOR AND DRAFTER SUPERVISOR-ACADEMIC AFFAIRS MANAGER, 25 mg at 05/03/25 0205 ondansetron (PF) (ZOFRAN) injection 4 mg, 4 mg, intravenous, Q6H PRN, Luigi Reese ESTIMATOR AND DRAFTER SUPERVISOR-ACADEMIC AFFAIRS MANAGER pantoprazole (PROTONIX) 80 mg in sodium chloride 0.9 % 100 mL (0.8 mg/mL) infusion, 8 mg/hr, intravenous, Continuous, Ivania Trevino APRN-ACADEMIC AFFAIRS MANAGER, Last Rate: 10 mL/hr at 05/03/25829, 8 mg/hr at 05/03/25 0830 pregabalin (LYRICA) capsule 75 mg, 75 mg, oral, TID AND pregabalin (LYRICA) capsule 150 mg, 150mg, oral, Nightly, Luigi Reese ESTIMATOR AND DRAFTER SUPERVISOR-ACADEMIC AFFAIRS MANAGER, 150 mg at 05/03/25 0205 sodium chloride 0.9 % flush 3 mL, 3 mL, intravenous, PRN, Luigi D Krotzer, ESTIMATOR AND DRAFTER SUPERVISOR-ACADEMIC AFFAIRS MANAGER sodium chloride 0.9 % flush 3 mL, 3 mL, intravenous, Q12H HUNG, Luigi D Krotzer, ESTIMATOR AND DRAFTER SUPERVISOR-ACADEMIC AFFAIRS MANAGER, 3 mL at 05/03/25 0205 sodium chloride 0.9 % flush bag, 25 mL, intravenous, PRN, Luigi D Krotzer, ESTIMATOR AND DRAFTER SUPERVISOR-ACADEMIC AFFAIRS MANAGER sodium chloride 0.9 % infusion, 20 mL/hr, intravenous, Continuous PRN, Luigi D Krotzer, ESTIMATOR AND DRAFTER SUPERVISOR-ACADEMIC AFFAIRS MANAGER sodium chloride 0.9 % infusion, 75 mL/hr, intravenous, Continuous, Luigi D Krotzer, ESTIMATOR AND DRAFTER SUPERVISOR-ACADEMIC AFFAIRS MANAGER, Last Rate: 75 mL/hr at 05/03/25 0530, Rate Verify at 05/03/25 0530 sodium chloride 0.9 % infusion, 20 mL/hr, intravenous, Continuous PRN, Bethanie Marquez, ESTIMATOR AND DRAFTER SUPERVISOR-ACADEMIC AFFAIRS MANAGER Social History Socioeconomic History Marital status: Spouse name: Not on file Number of children: Not on file Years of education: Not on file Highest education level: Not on file Occupational History Not on file Tobacco Use Smoking status: Former Current packs/day: 0.00 Average packs/day: 0.5 packs/day for 10.0 years (5.0 ttl pk-yrs) Types: Cigarettes Start date: 1974 Quit date: 1984 Years since quittin.6 Smokeless tobacco: Never Vaping Use Vaping status: Never Used Substance and Sexual Activity Alcohol use: Not Currently Drug use: No Sexual activity: Defer Partners: Male control/protection: Surgical Other Topics Concern Caffeine Use No Social History Narrative Not on file Social Drivers of Health Financial Resource Strain: Medium Risk (05/02/2025) Overall Financial Resource Strain (CARDIA) Difficulty of Paying Living Expenses: Somewhat hard Food Insecurity: No Food Insecurity (05/03/2025) Hunger Screening Food Insecurity - Worry: Never True Food Insecurity - Inability: Never True Recent Concern: Food Insecurity - Food Insecurity Present (05/02/2025) Hunger Screening Food Insecurity - Worry: Sometimes True Food Insecurity - Inability: Sometimes True Transportation Needs: Unmet Transportation Needs (05/02/2025) PRAPARE - Transportation Lack of Transportation (Medical): Yes Lack of Transportation (Non-Medical): Yes Physical Activity: Inactive (09/19/2024) Exercise Vital Sign Days of Exercise per Week: 0 days Minutes of Exercise per Session: 0 min Stress: Not on file Social Connections: Not on file Interpersonal Safety: Not At Risk (05/02/2025) Humiliation, Afraid, Rape, and Kick questionnaire Fear of Current or Ex-Partner: No Emotionally Abused: No Physically Abused: No Sexually Abused: No Housing Instability: Low Risk (05/02/2025) Housing Instability Housing Instability: No Family History Problem Relation Age of Onset Colon cancer Mother Brain cancer (CMS-HCC) Mother Heart disease Mother Diabetes Mother Hyperlipidemia Mother Hypertension Mother Cancer Father Lung cancer Father Breast cancer Sister 62 Cancer Sister Hypertension Sister Hyperlipidemia Sister Diabetes Sister Splenomegaly Sister Lung disease Sister Cancer Brother Heart disease Brother Stroke Brother Hyperlipidemia Brother Hypertension Brother Lung cancer Brother Aries Breast Cancer Neg Hx Physical Exam Vitals reviewed. Constitutional: Appearance: Normal appearance. HENT: Head: Normocephalic and atraumatic. Eyes: Pupils: Pupils are equal, round, and reactive to light. Cardiovascular: Rate and Rhythm: Normal rate. Pulmonary: Effort: Pulmonary effort is normal. Abdominal: General: There is no distension. Palpations: Abdomen is soft. Tenderness: There is no abdominal tenderness. Musculoskeletal: General: No swelling. Skin: General: Skin is warm and dry. Neurological: Mental Status: She is alert and oriented to person, place, and time. Mental status is at baseline. Psychiatric: Mood and Affect: Mood normal. Behavior: Behavior normal. Vital Signs: Blood pressure (!) 88/46, pulse 61, temperature 36.8 ??C (98.2 ??F), temperature source Oral, resp. rate 16, height 157.5 cm (5' 2 ), weight 105.7 kg (233 lb), SpO2 94%, not currently . Respiratory Source: O2 Device: None (Room air) Admission Weight: Weight: 99.2 kg (218 lb 11.2 oz) Labs: Lab Results Component Value Date WBC 11.2 (H) 05/03/2025 HGB 6.7 (LL) 05/03/2025 HCT 20.4 (L) 05/03/2025 MCV 88 05/03/2025 PLT 195 05/03/2025 Lab Results Component Value Date GLU 77 05/03/2025 CALCIUM 8.1 (L) 05/03/2025 K 4.4 05/03/2025 CO2 22 05/03/2025 CL 98 05/03/2025 BUN 97 (H) 05/03/2025 CREATININE 3.65 (H) 05/03/2025 No results found for: AMYLASE Lab Results Component Value Date LIPASE 28 04/07/2025 Lab Results Component Value Date ALT 142 (H) 05/03/2025 AST 248 (H) 05/03/2025 ALKPHOS 137 (H) 05/03/2025 Lab Results Component Value Date INR 1.7 (H) 04/08/2025 INR 2.0 (H) 04/07/2025 INR 2.1 (H) 09/18/2024 PROTIME 19.5 (H) 04/08/2025 PROTIME 23.0 (H) 04/07/2025 PROTIME 24.0 (H) 09/18/2024 Assessment: Irma Caceres is a 80 y.o.female with anemia and melena. positive fecal occult blood Eliquis/plavix last dose 05/02 Plan: Plan for EGD and colonoscopy on 05/05/2025 Evaluation included: Preparing to see the patient (e.g., review of tests) Obtaining and/or reviewing separately obtained history Performing a medically appropriate examination and/or evaluation Counseling and educating the patient/family/caregiver Referring and communicating with other health foster care worker Kelvin Myles MD [facility] [place] * Kelvin Myles MD - 05/05/2025 1:51 PM EDT HISTORY AND PHYSICAL INTERVAL NOTE: Irma Caceres 1945 [id number] H&P reviewed. The patient was examined and there are no changes to the H&P. Kelvin Myles MD Source Note - Kelvin Myles MD - 05/03/2025 1:25 PM EDT Images from the original note were not included. Chief Complaint: Anemia, melena History of Present Illness: Irma Caceres is a 80 y.o. female who presented to the emergency department due to fatigue. She was recently discharged from the hospital after a fall and urinary tract infection. She returned to the ER due to fatigue as well as report of melanotic stool. Hemoccult stool was positive. She is on Eliquis as well as Plavix. CT abdomen pelvis showed severe aortoiliac and mesenteric atheroscleroticchanges. No acute intra-abdominal process. This morning her hemoglobin dropped to 6.7. She will receive 1 unit PRBC. Patient notes longstanding anemia. Notes longstanding melena due to iron supplementation. Her last EGD and colonoscopy were performed in 2022. Colonoscopy showed diverticulosis and polyps. Duodenitis, gastritis, fundic gland polyps. HPI Review of Systems Constitutional: Negative for fever and chills. Respiratory: Negative for shortness of breath. Cardiovascular: Negative for chest pain and palpitations. Gastrointestinal: Positive for black tarry stool. Negative for nausea, vomiting and abdominal pain. Genitourinary: Negative for dysuria and difficulty urinating. Skin: Negative for rash and wound. Allergic/Immunologic: Negative for immunocompromised state. Neurological: Negative for weakness and light-headedness. Hematological: Does not bruise/bleed easily. Psychiatric/Behavioral: Negative for behavioral problems and confusion. Past Medical History: Diagnosis Date Anemia Angina pectoris Arthritis C. difficile colitis 06/2023 still tx 08/08/23 Chronic kidney disease Chronic pain disorder Depression Diabetes mellitus type 2, controlled ([facility]) GERD (gastroesophageal reflux disease) Hyperlipidemia Hypertension Ischemic bowel disease Kidney stone hx Low back pain Myocardial infarction ([facility]) Obesity Osteoarthritis Osteoporosis Palpitations Paroxysmal A-fib ([facility]) Pneumonia 08/2024 Visual impairment Past Surgical History: Procedure Laterality Date APPENDECTOMY 1955 BACK SURGERY x 2 BREAST BIOPSY Left 06/03/2001 BREAST BIOPSY Left 1998 BREAST BIOPSY Left 2006 CARDIAC CATHETERIZATION CHOLECYSTECTOMY 1974 COLONOSCOPY N/A 05/22/2023 Performed by Triston Sanford DO at [facility] CORONARY ANGIOPLASTY WITH STENT PLACEMENT 08/10/2024 x1 ESOPHAGOGASTRODUODENOSCOPY N/A 05/22/2023 Performed by Triston Sanford DO at [facility] HERNIA REPAIR HYSTERECTOMY 1980 INJECTION BLOCK EPIDURAL CAUDAL STEROID N/A 11/01/2023 Performed by Xu Campa MD at [facility] INJECTION BLOCK NERVE MEDIAL BRANCH: bilat L 4/5 5/ Bilateral 06/21/2023 Performed by Xu Campa MD at [facility] INJECTION BLOCK NERVE MEDIAL BRANCH: bilat L 4/5 5/ Bilateral 02/22/2023 Performed by Xu Campa MD at [facility] INJECTION BLOCK SACROILIAC JOINT Right 02/07/2024 Performed by Xu Campa MD at [facility] INJECTION BLOCK SACROILIAC JOINT Right 09/13/2023 Performed by Xu Campa MD at [facility] INJECTION BLOCK SACROILIAC JOINT Right 11/09/2022 Performed by Xu Campa MD at [facility] BURSA LARGE JOINT: right hip Right 12/28/2022 Performed by Xu Campa MD at [facility] BURSA LARGE JOINT: right hip Right 07/19/2023 Performed by Xu Campa MD at [facility] OOPHORECTOMY ROTATOR CUFF REPAIR x 3 TUBAL LIGATION 1974 Allergies Allergen Reactions Codeine affected my breathing , tylenol #3 specifically Sulfa (Sulfonamide Antibiotics) GI Disturbance Sulfamethoxazole-Trimethoprim Other reaction(s): Vomiting Trimethobenzamide Current Facility-Administered Medications: acetaminophen (TYLENOL) tablet 650 mg, 650 mg, oral, Q6H PRN, Luigi Reese ESTIMATOR AND DRAFTER SUPERVISOR-ACADEMIC AFFAIRS MANAGER amiodarone (PACERONE) tablet 200 mg, 200 mg, oral, BID, Luigi Reese APRN- ACADEMIC AFFAIRS MANAGER, 200 mg at 05/03/25 0832 dextrose (GLUTOSE) 40 % gel 15 g, 15 g, oral, PRN, Luigi Floodzer, ESTIMATOR AND DRAFTER SUPERVISOR-ACADEMIC AFFAIRS MANAGER dextrose 5 % (D5W) infusion, 100 mL/hr, intravenous, Continuous PRN, Luigi Reese ESTIMATOR AND DRAFTER SUPERVISOR-ACADEMIC AFFAIRS MANAGER dextrose 50 % in water (D50W) 50% solution 25 mL, 25 mL, intravenous, PRN, Luigi Floodzer, ESTIMATOR AND DRAFTER SUPERVISOR-ACADEMIC AFFAIRS MANAGER ferrous sulfate tablet 325 mg, 325 mg, oral, Daily with breakfast, Luigi Reese APRN-ACADEMIC AFFAIRS MANAGER, 325 mgat 05/03/25 0832 glucagon HCL injection 1 mg, 1 mg, intramuscular, PRN, Luigi D Krotzer, ESTIMATOR AND DRAFTER SUPERVISOR-ACADEMIC AFFAIRS MANAGER insulin glargine (LANTUS, SEMGLEE) injection pen 20 Units, 20 Units, subcutaneous, Nightly, Luigi Woodotzer, ESTIMATOR AND DRAFTER SUPERVISOR-ACADEMIC AFFAIRS MANAGER, 20 Units at 05/03/25 0208 insulin lispro (HumaLOG) injection 2-10 Units, 2-10 Units, subcutaneous, With meals and nightly, Luigi Floodzer, ESTIMATOR AND DRAFTER SUPERVISOR-ACADEMIC AFFAIRS MANAGER, 2 Units at 05/03/25 0209 magnesium sulfate IVPB 2000 mg/50 mL in iso-osmotic water (40 mg/mL premix), 2,000 mg, intravenous,PRN, Luigi Baird Krotzer, ESTIMATOR AND DRAFTER SUPERVISOR-ACADEMIC AFFAIRS MANAGER magnesium sulfate IVPB 4000 mg/100 mL in iso-osmotic water (40 mg/mL premix), 4,000 mg, intravenous, PRN, Luigi Brie Krotzer, ESTIMATOR AND DRAFTER SUPERVISOR-ACADEMIC AFFAIRS MANAGER metoprolol tartrate (LOPRESSOR) tablet 25 mg, 25 mg, oral, BID, Luigi Woodotzer, ESTIMATOR AND DRAFTER SUPERVISOR-ACADEMIC AFFAIRS MANAGER, 25 mg at 05/03/25 0205 ondansetron (PF) (ZOFRAN) injection 4 mg, 4 mg, intravenous, Q6H PRN, Luigi Woodotzer, ESTIMATOR AND DRAFTER SUPERVISOR-ACADEMIC AFFAIRS MANAGER pantoprazole (PROTONIX) 80 mg in sodium chloride 0.9 % 100 mL (0.8 mg/mL) infusion, 8 mg/hr, intravenous, Continuous, Ivania Trevino ESTIMATOR AND DRAFTER SUPERVISOR-ACADEMIC AFFAIRS MANAGER, Last Rate: 10 mL/hr at 05/03/25 0830, 8 mg/hr at 05/03/25 0830 pregabalin (LYRICA) capsule 75 mg, 75 mg, oral, TID AND pregabalin (LYRICA) capsule 150 mg, 150mg, oral, Nightly, Luigi D Krotzer, ESTIMATOR AND DRAFTER SUPERVISOR-ACADEMIC AFFAIRS MANAGER, 150 mg at 05/03/25 0205 sodium chloride 0.9 % flush 3 mL, 3 mL, intravenous, PRN, Luigi D Krotzer, ESTIMATOR AND DRAFTER SUPERVISOR-ACADEMIC AFFAIRS MANAGER sodium chloride 0.9 % flush 3 mL, 3 mL, intravenous, Q12H HUNG, Luigi Baird Krotzer, ESTIMATOR AND DRAFTER SUPERVISOR-ACADEMIC AFFAIRS MANAGER, 3 mL at 05/03/25 0205 sodium chloride 0.9 % flush bag, 25 mL, intravenous, PRN, Luigi D Krotzer, ESTIMATOR AND DRAFTER SUPERVISOR-ACADEMIC AFFAIRS MANAGER sodium chloride 0.9 % infusion, 20 mL/hr, intravenous, Continuous PRN, Luigi D Krotzer, ESTIMATOR AND DRAFTER SUPERVISOR-ACADEMIC AFFAIRS MANAGER sodium chloride 0.9 % infusion, 75 mL/hr, intravenous, Continuous, Luigi D Krotzer, ESTIMATOR AND DRAFTER SUPERVISOR-ACADEMIC AFFAIRS MANAGER, Last Rate: 75 mL/hr at 05/03/25 0530, Rate Verify at 05/03/25 0530 sodium chloride 0.9 % infusion, 20 mL/hr, intravenous, Continuous PRN, Bethanie Marquez, ESTIMATOR AND DRAFTER SUPERVISOR-ACADEMIC AFFAIRS MANAGER Social History Socioeconomic History Marital status: Spouse name: Not on file Number of children: Not on file Years of education: Not on file Highest education level: Not on file Occupational History Not on file Tobacco Use Smoking status: Former Current packs/day: 0.00 Average packs/day: 0.5 packs/day for 10.0 years (5.0 ttl pk-yrs) Types: Cigarettes Start date: 1974 Quit date: 1984 Years since quittin.6 Smokeless tobacco: Never Vaping Use Vaping status: Never Used Substance and Sexual Activity Alcohol use: Not Currently Drug use: No Sexual activity: Defer Partners: Male control/protection: Surgical Other Topics Concern Caffeine Use No Social History Narrative Not on file Social Drivers of Health Financial Resource Strain: Medium Risk (05/02/2025) Overall Financial Resource Strain (CARDIA) Difficulty of Paying Living Expenses: Somewhat hard Food Insecurity: No Food Insecurity (05/03/2025) Hunger Screening Food Insecurity - Worry: Never True Food Insecurity - Inability: Never True Recent Concern: Food Insecurity - Food Insecurity Present (05/02/2025) Hunger Screening Food Insecurity - Worry: Sometimes True Food Insecurity - Inability: Sometimes True Transportation Needs: Unmet Transportation Needs (05/02/2025) PRAPARE - Transportation Lack of Transportation (Medical): Yes Lack of Transportation (Non-Medical): Yes Physical Activity: Inactive (09/19/2024) Exercise Vital Sign Days of Exercise per Week: 0 days Minutes of Exercise per Session: 0 min Stress: Not on file Social Connections: Not on file Interpersonal Safety: Not At Risk (05/02/2025) Humiliation, Afraid, Rape, and Kick questionnaire Fear of Current or Ex-Partner: No Emotionally Abused: No Physically Abused: No Sexually Abused: No Housing Instability: Low Risk (05/02/2025) Housing Instability Housing Instability: No Family History Problem Relation Age of Onset Colon cancer Mother Brain cancer (CMS-HCC) Mother Heart disease Mother Diabetes Mother Hyperlipidemia Mother Hypertension Mother Cancer Father Lung cancer Father Breast cancer Sister 62 Cancer Sister Hypertension Sister Hyperlipidemia Sister Diabetes Sister Splenomegaly Sister Lung disease Sister Cancer Brother Heart disease Brother Stroke Brother Hyperlipidemia Brother Hypertension Brother Lung cancer Brother Aries Breast Cancer Neg Hx Physical Exam Vitals reviewed. Constitutional: Appearance: Normal appearance. HENT: Head: Normocephalic and atraumatic. Eyes: Pupils: Pupils are equal, round, and reactive to light. Cardiovascular: Rate and Rhythm: Normal rate. Pulmonary: Effort: Pulmonary effort is normal. Abdominal: General: There is no distension. Palpations: Abdomen is soft. Tenderness: There is no abdominal tenderness. Musculoskeletal: General: No swelling. Skin: General: Skin is warm and dry. Neurological: Mental Status: She is alert and oriented to person, place, and time. Mental status is at baseline. Psychiatric: Mood and Affect: Mood normal. Behavior: Behavior normal. Vital Signs: Blood pressure (!) 88/46, pulse 61, temperature 36.8 ??C (98.2 ??F), temperature source Oral, resp. rate 16, height 157.5 cm (5' 2 ), weight 105.7 kg (233 lb), SpO2 94%, not currently . Respiratory Source: O2 Device: None (Room air) Admission Weight: Weight: 99.2 kg (218 lb 11.2 oz) Labs: Lab Results Component Value Date WBC 11.2 (H) 05/03/2025 HGB 6.7 (LL) 05/03/2025 HCT 20.4 (L) 05/03/2025 MCV 88 05/03/2025 PLT 195 05/03/2025 Lab Results Component Value Date GLU 77 05/03/2025 CALCIUM 8.1 (L) 05/03/2025 K 4.4 05/03/2025 CO2 22 05/03/2025 CL 98 05/03/2025 BUN 97 (H) 05/03/2025 CREATININE 3.65 (H) 05/03/2025 No results found for: AMYLASE Lab Results Component Value Date LIPASE 28 04/07/2025 Lab Results Component Value Date ALT 142 (H) 05/03/2025 AST 248 (H) 05/03/2025 ALKPHOS 137 (H) 05/03/2025 Lab Results Component Value Date INR 1.7 (H) 04/08/2025 INR 2.0 (H) 04/07/2025 INR 2.1 (H) 09/18/2024 PROTIME 19.5 (H) 04/08/2025 PROTIME 23.0 (H) 04/07/2025 PROTIME 24.0 (H) 09/18/2024 Assessment: Irma Caceres is a 80 y.o.female with anemia and melena. positive fecal occult blood Eliquis/plavix last dose 05/02 Plan: Plan for EGD and colonoscopy on 05/05/2025 Evaluation included: Preparing to see the patient (e.g., review of tests) Obtaining and/or reviewing separately obtained history Performing a medically appropriate examination and/or evaluation Counseling and educating the patient/family/caregiver Referring and communicating with other health foster care worker Kelvin Myles MD [facility] General Surgery [place] * Laina Rome MD - 05/03/2025 9:00 AM EDT Images from the original note were not included. [facility] INTER[facility]IC[facility] [address] [place] [id number] Hospital Medicine History & Physical Patient: Irma Caceres Date of : 1945 Room: PCP: DAGMAR HERNANDEZ APRN-DWIGHT Admission date: 05/02/2025 8:05 PM Encounter date: 05/03/25 Hospital Day: 2 SUBJECTIVE Irma Caceres is a 80 y.o. female who presents with complaints of fatigue. Patient reports she was sleeping all day did not feel like getting up and family thought it was concerning how much she was sleeping so brought her to ER. Patient was recently discharged from hospital after a fall from UTI. Patient states she is just tired. Vitals WNL in ER. Patient is obese guaiac positive family reports that stool was black at home. 3+ pitting edema to BLE.Patient is on eliquis and plavix at home. Results in ER WBC 18.1 H&H 7.4/22.6 sodium 126 potassium 5.5 chloride 93 glucose 231 creatinine3.79 BUN 134 AST 225 ALT 141 GFR 12 positive occult Imaging chest x-ray Persistent left lower lobe infiltrates and/or atelectasis not well evaluated on portable film. Enlarged cardiac/pericardiac silhouette. . No edema or effusion. CT brain No evidence of an acute intracranial process. Age-appropriate senescent atrophic changes. Left frontal scalp hematoma. CT abdomen and pelvis Severe aortoiliacand mesenteric atherosclerotic changes. If this is of clinical concern, contrasted exam may be helpful. EKG SR prolonged HI nonspecific intraventricular conduction delay Will admit for GI bleed Allergies: Codeine, Sulfa (sulfonamide antibiotics), Sulfamethoxazole- trimethoprim, and Trimethobenzamide Prior to Admission medications Medication Sig Start Date End Date Taking? Authorizing Provider ACCU-CHEK OLY PLUS TEST STRP strip 03/15/23 Yes Not In System Ref Prov acetaminophen (TYLENOL ARTHRITIS) 650 mg 8 hr tablet Take 1 tablet (650 mg total) by mouth every 8 (eight) hours as needed for pain. Yes Not In System Ref Prov allopurinol (ZYLOPRIM) 300 mg tablet Take 1 tablet (300 mg total) by mouth in the morning. Yes Not In System Ref Prov amiodarone (PACERONE) 200 mg tablet Take 1 tablet (200 mg total) by mouth in the morning and 1 tablet (200 mg total) before bedtime. 12/17/24 Yes Not In System Ref Prov apixaban (ELIQUIS) 5 mg tablet Take 1 tablet (5 mg total) by mouth in the morning and 1 tablet (5 mg total) before bedtime. Yes Not In System Ref Prov clopidogreL (PLAVIX) 75 mg tablet Take 1 tablet (75 mg total) by mouth in the morning. 11/19/24 Yes Luis Ta Granger MD cyanocobalamin (VITAMIN B12) 1,000 mcg tablet, sublingual Place 1 tablet (1,000 mcg total) under the tongue in the morning. 06/28/22 Yes Luis Granger MD ferrous sulfate 325 (65 FE) mg tablet Take 1 tablet (325 mg total) by mouth daily with breakfast. Yes Not In System Ref Prov FREESTYLE CUONG 2 SENSOR kit 11/28/22 Yes Not In System Ref Prov insulin degludec (TRESIBA FLEXTOUCH U-100) 100 unit/mL (3 mL) insulin pen Inject 20 Units under theskin nightly. Yes Not In System Ref Prov insulin lispro (HumaLOG) 100 unit/mL insulin pen Inject under the skin. Sliding scale based on meals and blood sugar 03/04/22 Yes Not In System Ref Prov metoprolol tartrate (LOPRESSOR) 25 mg tablet TAKE 1 TABLET BY MOUTH TWICE DAILY (MORNING AND BEFORE BEDTIME) 10/19/24 Yes DANIELLE Clements mupirocin (BACTROBAN) 2 % ointment Apply 1 Application topically in the morning and 1 Application before bedtime. 03/24/25 Yes Not In System Ref Prov oxybutynin XL (DITROPAN-XL) 5 mg 24 hr tablet Take 1 tablet (5 mg total) by mouth in the morning. 02/13/23 Yes Not In System Ref Prov pantoprazole (PROTONIX) 40 mg EC tablet Take 1 tablet (40 mg total) by mouth daily. 07/07/21 Yes Duke Franklin MD pregabalin (LYRICA) 75 mg capsule Take 1 capsule (75 mg total) by mouth 3 (three) times a day AND 2capsules (150 mg total) nightly. 04/06/25 Yes DANIELLE Hilsl semaglutide (OZEMPIC) 0.25 mg or 0.5 mg(2 mg/1.5 mL) pen injector Inject 0.5 mg under the skin oncea week. Every saturday Yes Not In System Ref Prov atorvastatin (LIPITOR) 80 mg tablet Take 1 tablet (80 mg total) by mouth in the morning. Patient not taking: Reported on 05/02/2025 01/02/25 Not In System Ref Prov isosorbide mononitrate (IMDUR) 30 mg 24 hr tablet Take 1 tablet (30 mg total) by mouth daily. Patient not taking: Reported on 05/02/2025 Not In System Ref Prov polyethylene glycol (GLYCOLAX) 17 gram packet Take 17 g by mouth daily as needed (constipation). Patient not taking: Reported on 05/02/2025 04/12/25 Minerva Castellanos PA-C torsemide (DEMADEX) 10 mg tablet Take 1 tablet (10 mg total) by mouth daily. Patient not taking: Reported on 05/02/2025 Not In System Ref Prov Code Status: Full Code Past Medical History: Patient has a past medical history of Anemia, Angina pectoris, Arthritis, C. difficile colitis (06/2023), Chronic kidney disease, Chronic pain disorder, Depression, Diabetes mellitus type 2, controlled ([facility]), GERD (gastroesophageal reflux disease), Hyperlipidemia, Hypertension, Ischemic bowel disease, Kidney stone, Low back pain, Myocardial infarction ([facility]), Obesity, Osteoarthritis, Osteoporosis, Palpitations, Paroxysmal A-fib ([facility]), Pneumonia (08/2024), and Visual impairment. Past Surgical History: Patient has a past surgical history that includes Oophorectomy; Hysterectomy (1980); Breast biopsy (Left, 06/03/2001); Breast biopsy (Left, 1997); Cardiac catheterization; Cholecystectomy (1973); Appendectomy (1955); Breast biopsy (Left, 2005); Tubal ligation (1974); Rotator cuff repair; Back surgery; Hernia repair; Injection Nerve Block (Right, 11/09/2022); Injection Joint (Right, 12/28/2022); Injection Nerve Block (Bilateral, 02/22/2023); Colonoscopy (N/A, 05/22/2023); Esophagogastroduodenoscopy (N/A, 05/22/2023); Injection Nerve Block (Bilateral, 06/21/2023); Injection Joint (Right, 07/19/2023); Injection Nerve Block (Right, 09/13/2023); Epidural block injection (N/A, 11/01/2023); Injection Nerve Block (Right, 02/07/2024); and Coronary angioplasty with stent (08/10/2024). Family History: Patient's family history includes Brain cancer ([facility]) in her mother; Breast cancer (age of onset: 62) in her sister; Cancer in her brother, father, and sister; Colon cancer in her mother; Diabetesin her mother and sister; Heart disease in her brother and mother; Hyperlipidemia in her brother, mother, and sister; Hypertension in her brother, mother, and sister; Lung cancer in her brother and father; Lung disease in her sister; Splenomegaly in her sister; Stroke in her brother. Social History: Patient reports that she quit smoking about 40 years ago. Her smoking use included cigarettes. She started smoking about 50 years ago. She has a 5 pack- year smoking history. She has never used smokeless tobacco. She reports that she does not currently use alcohol. She reports that she does not use drugs. Review of Systems Constitutional: Positive for fatigue. Negative for chills and fever. HENT: Negative for ear pain and sore throat. Eyes: Negative for pain and visual disturbance. Respiratory: Negative for cough and shortness of breath. Cardiovascular: Negative for chest pain and palpitations. Gastrointestinal: Positive for blood in stool. Negative for abdominal pain and vomiting. Genitourinary: Positive for vaginal bleeding. Negative for dysuria and hematuria. Musculoskeletal: Negative for arthralgias and back pain. Skin: Negative for color change and rash. Neurological: Negative for seizures and syncope. All other systems reviewed and are negative. OBJECTIVE BP 106/42 Pulse 61 Temp 36.7 ??C (98 ??F) (Oral) Resp 16 Ht 157.5 cm (5' 2 ) Wt 101.2 kg (223 lb 3.2 oz) LMP (LMP Unknown) SpO2 96% BMI 40.82 kg/m?? Temp: [36.7 ??C (98 ??F)-36.9 ??C (98.4 ??F)] 36.7 ??C (98 ??F) Pulse: [55-69] 61 Resp: [16-22] 16 BP: (86-138)/(41-103) 106/42 SpO2: [90 %-99 %] 96 % O2 Device: None (Room air) O2 Flow Rate (L/min): [0 L/min] 0 L/min Intake/Output Summary (Last 24 hours) at 05/03/2025 1154 Last data filed at 05/03/2025 1005 Gross per 24 hour Intake 701.6 ml Output 817 ml Net -115.4 ml Physical Exam Vitals and nursing note reviewed. Constitutional: Appearance: She is well-developed. She is obese. HENT: Head: Normocephalic and atraumatic. Nose: Nose normal. Eyes: Pupils: Pupils are equal, round, and reactive to light. Cardiovascular: Rate and Rhythm: Normal rate and regular rhythm. Heart sounds: Normal heart sounds. No murmur heard. Pulmonary: Effort: Pulmonary effort is normal. No respiratory distress. Breath sounds: Normal breath sounds. No wheezing. Abdominal: General: Bowel sounds are normal. Palpations: Abdomen is soft. Tenderness: There is no abdominal tenderness. Musculoskeletal: General: Normal range of motion. Cervical back: Neck supple. Lymphadenopathy: Cervical: No cervical adenopathy. Skin: General: Skin is warm and dry. Findings: Bruising (left face) present. No rash. Neurological: Mental Status: She is alert and oriented to person, place, and time. Cranial Nerves: No cranial nerve deficit. Medications Scheduled: amiodarone, 200 mg, oral, BID ferrous sulfate, 325 mg, oral, Daily with breakfast insulin glargine, 20 Units, subcutaneous, Nightly insulin lispro, 2-10 Units, subcutaneous, With meals and nightly metoprolol tartrate, 25 mg, oral, BID pregabalin, 75 mg, oral, TID AND pregabalin, 150 mg, oral, Nightly sodium chloride, 3 mL, intravenous, Q12H HUNG Infusions: dextrose 5 % in water, 100 mL/hr pantoprazole (PROTONIX) 80 mg in sodium chloride 0.9 % 100 mL (0.8 mg/mL) infusion, 8 mg/hr, Last Rate: 8 mg/hr (05/03/25 0830) sodium chloride 0.9 %, 20 mL/hr sodium chloride 0.9 %, 75 mL/hr, Last Rate: 75 mL/hr (05/03/25 0530) sodium chloride 0.9 %, 20 mL/hr As Needed: acetaminophen dextrose dextrose 5 % in water dextrose 50 % in water (D50W) glucagon (human recombinant) magnesium sulfate magnesium sulfate ondansetron sodium chloride sodium chloride sodium chloride 0.9 % sodium chloride 0.9 % Allergies: Codeine, Sulfa (sulfonamide antibiotics), Sulfamethoxazole- trimethoprim, and Trimethobenzamide Labs Recent Results (from the past 24 hours) Nursing fecal occult blood (OBN) Collection Time: 05/02/25 8:28 PM Result Value Ref Range POC Fecal Occult Blood Positive (A) Negative, Invalid Result Lactate w/ Reflex Collection Time: 05/02/25 9:05 PM Result Value Ref Range LACTATE W/REFLEX 1.4 0.4 - 2.0 mmol/L Narrative Result did not trigger repeat Lactate, re-order if needed. CBC auto differential Collection Time: 05/02/25 9:06 PM Result Value Ref Range WBC 18.1 (H) 4 - 11 x10E9/L RBC Count 2.58 (L) 3.8 - 5.2 X10E12/L Hemoglobin 7.4 (L) 11.7 - 15.5 g/dL Hematocrit 22.6 (L) 35 - 47 % MCV 88 80 - 100 fL MCH 28.6 27 - 34 pg MCHC 32.6 32 - 36 g/dL RDW 20.1 (H) 11.5 - 15 % Platelet Count 202 150 - 450 X10E9/L MPV 10.3 7 - 12 fL Bands % 4 % Neutrophils % 84 % Lymphocytes % 10 % Monocytes % 2 % Neutrophils Absolute (M) 16.0 (H) 1.5 - 6.6 10*3/uL Lymphocytes Absolute 1.8 1.0 - 3.5 10*3/uL Monocytes Absolute 0.4 0.0 - 0.9 10*3/uL Macro Ovalocytes 1+ Differential Type CELLAVISION DIFFERENTIAL Comprehensive metabolic panel Collection Time: 05/02/25 9:06 PM Result Value Ref Range SODIUM 126 (L) 134 - 146 mmol/L POTASSIUM 5.5 (H) 3.5 - 5.0 mmol/L CHLORIDE 93 (L) 98 - 109 mmol/L CARBON DIOXIDE 24 22 - 32 mmol/L ANION GAP 9 5 - 15 mmol/L BLOOD UREA NITROGEN 134 (H) 5 - 27 mg/dL CREATININE 3.79 (H) 0.40 - 1.00 mg/dL GLUCOSE 231 (H) 65 - 99 mg/dL CALCIUM 8.1 (L) 8.5 - 10.5 mg/dL TOTAL PROTEIN 5.7 (L) 6.0 - 8.0 g/dL ALBUMIN 2.8 (L) 3.2 - 5.3 g/dL ALKALINE PHOSPHATASE 166 (H) 39 - 130 U/L AST 225 (H) <=41 U/L ALT 141 (H) <=31 U/L BILIRUBIN,TOTAL 0.7 0.3 - 1.2 mg/dL EGFR Non-Race Dependent 12 (L) >=60 ml/min/1.73sq.m Magnesium Collection Time: 05/02/25 9:06 PM Result Value Ref Range MAGNESIUM 1.9 1.8 - 2.6 mg/dL Extra Tubes Collection Time: 05/02/25 9:06 PM Narrative The following orders were created for panel order Extra Tubes. Procedure Abnormality Status --------- ------ Light Blue Top[[id number]] Final result Please view results for these tests on the individual orders. Light Blue Top Collection Time: 05/02/25 9:06 PM Result Value Ref Range Extra Tube Auto Resulted Bedside Glucose *Place/Obtain serum glucose if >500 per glucometer. Collection Time: 05/03/25 1:37 AM Result Value Ref Range Bedside Glucose (POC) 187 (H) 65 - 99 mg/dL Comprehensive metabolic panel Collection Time: 05/03/25 4:14 AM Result Value Ref Range SODIUM 129 (L) 134 - 146 mmol/L POTASSIUM 4.4 3.5 - 5.0 mmol/L CHLORIDE 98 98 - 109 mmol/L CARBON DIOXIDE 22 22 - 32 mmol/L ANION GAP 9 5 - 15 mmol/L BLOOD UREA NITROGEN 97 (H) 5 - 27 mg/dL CREATININE 3.65 (H) 0.40 - 1.00 mg/dL GLUCOSE 89 65 - 99 mg/dL CALCIUM 8.1 (L) 8.5 - 10.5 mg/dL TOTAL PROTEIN 4.9 (L) 6.0 - 8.0 g/dL ALBUMIN 2.4 (L) 3.2 - 5.3 g/dL ALKALINE PHOSPHATASE 137 (H) 39 - 130 U/L AST 248 (H) <=41 U/L ALT 142 (H) <=31 U/L BILIRUBIN,TOTAL 0.5 0.3 - 1.2 mg/dL EGFR Non-Race Dependent 12 (L) >=60 ml/min/1.73sq.m Magnesium Collection Time: 05/03/25 4:14 AM Result Value Ref Range MAGNESIUM 1.8 1.8 - 2.6 mg/dL CBC auto differential Collection Time: 05/03/25 4:14 AM Result Value Ref Range WBC 11.2 (H) 4 - 11 x10E9/L RBC Count 2.31 (L) 3.8 - 5.2 X10E12/L Hemoglobin 6.7 (LL) 11.7 - 15.5 g/dL Hematocrit 20.4 (L) 35 - 47 % MCV 88 80 - 100 fL MCH 28.8 27 - 34 pg MCHC 32.6 32 - 36 g/dL RDW 19.6 (H) 11.5 - 15 % Platelet Count 195 150 - 450 X10E9/L MPV 10.4 7 - 12 fL Neutrophils % 77.5 % Lymphocytes % 15.7 % Monocytes % 6.0 % Eosinophils % 0.3 % Basophils % 0.5 % Neutrophils Absolute (A) 8.7 (H) 1.5 - 6.6 10*3/uL Lymphocytes Absolute 1.8 1.0 - 3.5 10*3/uL Monocytes Absolute 0.7 0.0 - 0.9 10*3/uL Eosinophils Absolute 0.0 0.0 - 0.4 10*3/uL Basophils Absolute 0.1 0.0 - 0.2 10*3/uL Differential Type AUTOMATED DIFFERENTIAL Type and screen(includes indirect nathalia) Collection Time: 05/03/25 8:44 AM Result Value Ref Range ABO O RH Positive Antibody Screen Negative Crossmatch RBC:Number of Units: 1 Collection Time: 05/03/25 9:19 AM Result Value Ref Range Blood component type [id number] Unit number [id number] Unit ABO O Unit RH POS Crossmatch Compatible Status of unit SELECTED Expiration Date [id number] BB Type Barcode [address] abdomen and pelvis without contrast Result Date: 05/02/2025 Narrative: CLINICAL INFORMATION: elevated enzymes TECHNIQUE: CT ABDOMEN AND PELVIS WO CONT CT images of the abdomen and pelvis are obtained. Images are acquired without contrast. This produces some limitation. Comparison is made prior exam dated April 04, 2023. Limited images lung bases grossly clear. No focal hepatic or splenic abnormality. Patient is postcholecystectomy. Kidneys appear somewhat atrophic. Severe aortoiliac and mesenteric atherosclerotic changes noted. Vessels not well evaluated with this exam. Bowel is nondistended. Although bile duct appears somewhat prominent, this may represent reservoir effect secondary to remote cholecystectomy. Osseous structures appear intact. IMPRESSION: Severe aortoiliac and mesenteric atherosclerotic changes. If this is of clinical concern, contrasted exam may be helpful. All CT scans at this facility use dose modulation, iterative reconstruction, and/or weight based dosing when appropriate to reduce radiation dose to as low as reasonably achi evable. Finalized by Edward Jha MD on 05/02/2025 11:[address] brain without contrast Result Date: 05/02/2025 Narrative: STUDY: CT HEAD WITHOUT CONTRAST CLINICAL HISTORY: Patient is feeling tired today. Recentfall. COMPARISON: 04/08/2025 TECHNIQUE: CT head was performed without contrast utilizing 2.5 mm axial reconstruction with images reviewed in bone and brain windows. Automated exposure control was utilized. FINDINGS: Noncontrast CT scan examination of the brain revealed mildly prominent ventricles, cortical sulci and sylvian fissures suggesting age-appropriate mild senescent atrophic changes. Thereis no evidence of mass, mass effect or midline shift. No evidence of intracranial bleeding. Incidental note is made of hyperostosis frontalis. Small left frontal scalp hematoma. Vascular calcifications. Evidence of prior bilateral cataract surgery IMPRESSION: 1. No evidence of an acute intracranialprocess. Age-appropriate senescent atrophic changes. Left frontal scalp hematoma. All CT scans at this facility use dose modulation, iterative reconstruction, and/or weight based dosing when appropria te to reduce radiation dose to as low as reasonably achievable. Finalized by Roxanne Sears MD on 05/02/2025 8:54 PM X-ray chest 1 view Result Date: 05/02/2025 Narrative: AP single view chest dated 05/02/2025 at 8:45 PM INDICATION: Fatigue. FINDINGS: Comparisonis 04/10/2025. Enlarged cardiac/pericardiac silhouette. Left lower lobe atelectasis and/or infiltrates, not significantly changed. No edema or effusion. No pneumothorax. IMPRESSION: 1. Persistent leftlower lobe infiltrates and/or atelectasis not well evaluated on portable film. 2. Enlarged cardiac/pericardiac silhouette. 3. No edema or effusion. Finalized by Joe Novoa MD on 05/02/2025 8:52 PM Vas venous duplex lwr bilateral Result Date: 04/13/2025 Narrative: Right: Lower extremity deep veins are compressible with spontaneous phasic spectral Doppler waveforms; superficial veins are compressible without intraluminal content. Left: Lower extremity deep veins are compressible with spontaneous phasic spectral Doppler waveforms; superficial veins are compressible without intraluminal content. Conclusions: BILATERAL: NO EVIDENCE of deep or superficial vein thrombosis of the lower extremities. Recommendations: Any questions prior to finalization, please call the reading physician during normal business hours at the phone number beside their name. Ultrasound retroperitoneal complete Result Date: 04/12/2025 Narrative: ULTRASOUND RETROPERITONEUM INDICATION: Urinary retention. COMPARISON: 06/07/2021. FINDINGS: Ultrasound evaluation of the kidneys and bladder was performed. Right kidney: 10.8 cm in maximal length. No collecting system dilatation, calculi, or contour deforming mass lesion. Left kidney: 11.4cm in maximal length. No collecting system dilatation, calculi, or contour deforming mass lesion. Parenchymal thinning both kidneys. Bladder: [Layering debris urinary bladder. Bladder volume: 367 mL.Only right ureteral jet seen. Patient unable to void. IMPRESSION: 1. No stone or collecting system dilatation. 2. Urinary bladder debris. Patient unable to void. Finalized by William Patton MD on 04/12/2025 1:29 PM Vas carotid duplex bilateral Result Date: 04/11/2025 Narrative: Right: Plaque with no significant ICA spectral Doppler or color flow disturbances; ICA 76 / 15 cm/sec. Antegrade vertebral artery flow. Left: Plaque with no significant ICA spectral Doppler or color flow disturbances; ICA 92 / 20 cm/sec. Antegrade vertebral artery flow. Conclusions: BILATERAL: Plaque without significant stenosis (<50%) of the internal carotid artery. Antegrade vertebral artery flow. MR brain without contrast Result Date: 04/10/2025 Narrative: EXAM: MRI BRAIN WITHOUT CONTRAST CLINICAL HISTORY: Subacute trauma, acute nausea, vomiting. TECHNIQUE: TECHNIQUE: Routine multiplanar multisequence MR imaging of the brain was performed without contrast. COMPARISONS: CT dated 04/08/2025 FINDINGS: There is a right tentorial subdural hematoma measuring up to 0.4 cm in thickness. There is no corresponding mass effect. There is a tiny subdural hematoma overlying the right temporal lobe measuring up to 0.4 cm in thickness. There is no corresponding mass effect. There is no shift of the midline structures and the basal cisterns are widelypatent. There is no evidence of ventricular outflow obstruction. There are mild nonaggressive whitematter changes of chronic ischemic small vessel disease. The hyman-white matter differentiation is preserved. The paranasal sinuses are well aerated. There is a small amount of nonaggressive fluid in the left mastoids. IMPRESSION: 1. Redemonstration of a right tentorial subdural hematoma measuring up to 0.4 cm in thickness. There is also a trace subdural hematoma overlying the right temporal lobe measuring up to 0.4 cm in thickness. There is no mass effect. Finalized by Steve Daigle MD on 04/10/2025 9:12 PM X-ray chest 1 view Result Date: 04/10/2025 Narrative: CHEST 1 VIEW HISTORY: Shortness of breath COMPARISON: 04/08/2025 IMPRESSION: * Left basilar opacities slightly more prominent than on previous, concerning for atelectasis or pneumonia. * Nopleural effusions, pulmonary edema or pneumothorax. * Unchanged cardiomediastinal silhouette. Finalized by Natanael Mayo MD on 04/10/2025 8:35 PM Echo complete W/ contrast Result Date: 04/09/2025 Narrative: Left Ventricle: Left ventricle appears normal in size. Systolic function is low normal to mildly decreased with an ejection fraction of 50-55%. Right Ventricle: Right ventricular size is mildly dilated. The right ventricular basal diameter is 36.0 mm. Aortic Valve: There is trace regurgitation. There is no evidence of aortic valve stenosis. Mitral Valve: There is no regurgitation or stenosis. Tricuspid Valve: There is mild regurgitation. There is no evidence of tricuspid valve stenosis. CT brain without contrast Result Date: 04/08/2025 Narrative: EXAM: CT BRAIN WO CONT CLINICAL INFORMATION: SDH stability. TECHNIQUE: CT head was performed without contrast utilizing 2.5 mm axial reconstruction with images reviewed in bone and brain windows. Automated exposure control was utilized. COMPARISON: CT dated 04/08/2025 FINDINGS: There has been no significant interval change in a right tentorial subdural hematoma measuring up to 0.7 cm inthickness. No new or progressive foci of acute intra or extra-axial hemorrhage are identified. There is no mass effect. There is no shift of the midline structures and the basal cisterns are widely patent. There is no evidence for ventricular outflow obstruction. Again seen are white matter changesof chronic ischemic small vessel disease. The hyman-white matter differentiation is preserved. Againseen is left facial, periorbital, and frontal soft tissue injury and swelling with a focal left frontal scalp hematoma. The paranasal sinuses are well aerated. The mastoids are clear. Hyperostosis fro ntalis is again noted. IMPRESSION: 1. There has been no significant interval change. Stable appearance of a right falcine subdural hematoma measuring up to 0.7 cm in thickness. There is no mass effect. No new or progressive foci of acute intracranial hemorrhage are identified. 2. Re-demonstration of left facial, periorbital, and frontal soft tissue injury and swelling with a focal left frontal scalp hematoma. All CT scans at this facility use dose modulation, iterative reconstruction, and/or weight based dosing when appropriate to reduce radiation dose to as low as reasonably achievable. Finalized by Steve Daigle MD on 04/08/2025 10:[address] brain without contrast Result Date: 04/08/2025 Narrative: CT BRAIN WO CONT CLINICAL HISTORY: Subdural hematoma COMPARISON: No prior CT brain without contrast obtained. FINDINGS: Subdural hematoma along the right falx. Mildly increased since previous examination on reconstructed coronal images it measures approximately 7 mm in maximum thickness.Increased approximately 1 mm in maximal no subarachnoid hemorrhage. No intraparenchymal hemorrhage.No CT evidence of acute infarct. No mass effect or midline shift area no intraventricular hemorrhage is identified. There may be some soft tissue swelling over the left temporal fossa. No skull fracture. IMPRESSION: * Subdural hematoma along the right falx mildly increased since previous examination. No additional intracranial hemorrhage is identified. No mass effect or midline shift. No skull fracture. Soft tissue swelling overlying the left forehead and left temporal fossa Finalized by Aaron Olvera MD on 04/08/2025 2:42 PM X-ray pelvis 1 or 2 views Result Date: 04/08/2025 Narrative: XR PELVIS 1 OR 2 VWS Clinical history:fall on thinners, trauma pelvic pain Comparison: 05/16/2022 Findings: Degenerative changes of the lumbar spine and bilateral hips. There is no acute process fracture or dislocation. Vascular calcifications are noted. Osteopenia. If the patient is unable to bear weight or if there is concern for nondisplaced hip fracture, consider correlation with MRI. Impression: Degenerative changes and osteopenia without definitive acute osseous abnormality identified within the limitations of this examination. Finalized by Carlos Alberto Cisneros MD on 04/08/2025 7:15 AM X-ray chest 1 view Result Date: 04/08/2025 Narrative: Single view chest History:fall on thinners Difficulty breathing, shortness of breath Comparison: 04/07/2025 Findings: Single portable view of the chest. Stable cardiac mediastinal silhouette. Atherosclerotic thoracic aorta. Expiratory changes with bronchovascular crowding. Slightly increasing left lower lung and retrocardiac atelectasis or pneumonia. Impression: Slightly increasing left lower lung and retrocardiac atelectasis versus pneumonia. Finalized by Carlos Alberto Cisneros MD on 04/08/2025 7:14 AM X-ray wrist right minimum 3 views Result Date: 04/08/2025 Narrative: XR WRIST RT MIN 3 VWS INDICATION: Wrist pain, fall COMPARISON: None FINDINGS: Diffuse osteopenia. No definite acute fracture or dislocation. Degenerative changes greatest at the first carpal metacarpal joint, with joint space narrowing. Diffuse vascular calcifications. Soft tissues are unremarkable. No radiopaque foreign bodies. IMPRESSION: No definite acute fracture or dislocation. Diffuse osteopenia. Degenerative changes as described above. Finalized by Robby Rosales on 04/08/2025 4:[address] cervical spine without contrast Result Date: 04/08/2025 Narrative: CLINICAL INFORMATION: Fall, pain. COMPARISON: None. PROCEDURE: Routine cervical spine protocol CT was obtained without intravenous contrast. Sagittal and coronal reformatted images were obtained from the axial data. Automated exposure control was utilized. FINDINGS: There is no acute fracture or dislocation. Vertebral body heights are maintained. Multilevel degenerative changes disc space narrowing greatest at C5-C6 and C6-C7. Scattered facet arthropathy. Moderate left neural foraminal narrowing at C5-C6. Lung apices are clear. IMPRESSION: 1. No fracture or malalignment. 2. Degenerative changes as above. All CT scans at this facility use dose modulation, iterative reconstruction,and/or weight based dosing when appropriate to reduce radiation dose to as low as reasonably achievable. Finalized by Robby Rosales on 04/08/2025 4:08 AM X-ray knee right 3 views Result Date: 04/08/2025 Narrative: XR KNEE RT 3 VWS INDICATION: Fall, pain COMPARISON: None FINDINGS: No acute fracture or dislocation. Tricompartment degenerative changes, greatest within the medial tibiofemoral and patellofemoral compartments, with joint space narrowing and spurring. No joint effusion. Vascular calcifications. Soft tissues are unremarkable. IMPRESSION: Acute osseous abnormality of the right knee. Degenerative changes as described above. Finalized by Robby Rosales on 04/08/2025 3:17 AM X-ray knee left 3 views Result Date: 04/08/2025 Narrative: XR KNEE LT 3 VWS INDICATION: Fall, pain COMPARISON: X-ray 2018 FINDINGS: No acute fracture or dislocation. Tricompartment degenerative changes, joint space narrowing and spurring. No large joint effusion. Soft tissues are unremarkable. There are no radio opaque foreign bodies. Vascular calcifications. IMPRESSION: No acute osseous abnormality of the left knee. Tricompartmental degenerative changes as described above. Finalized by Robby Rosales on 04/08/2025 3:[address] facial bones without contrast Result Date: 04/08/2025 Narrative: CT FACIAL BONES WO CONT 04/08/2025 2:00 AM SIGNS AND SYMPTOMS: Fall, pain TECHNIQUE: Multidetector CT axial slices of the facial bones were obtained. Helical, sagittal, coronal, and 3-D reconstructions were performed and viewed on a separate workstation and reviewed to further define anatomy and possible pathology. CT was performed with one or more of the following dose reduction techniques: Automated exposure control, adjustment of the mA and/or kV according to patient size, or use of iterative reconstruction technique. COMPARISON: None. FINDINGS: Fracture: None. Paranasal sinuses and mastoids: Well aerated. Soft tissue swelling: Superficial soft tissue hematoma overlying the left frontal convexity. Globes: Intact. Upper aerodigestive tract: Within normal limits. Joints: Intact. Temporal mandibular joints: Intact. Infratemporal fossa: Within normal limits. IMPRESSION: No evidence of fracture or dislocation. Finalized by Robby Rosales on 04/08/2025 3:[address] brain without contrast Result Date: 04/08/2025 Narrative: Exam: CT brain without contrast. CLINICAL HISTORY: Fall, pain TECHNIQUE: CT brain without intravenous contrast. COMPARISON: None FINDINGS: Hyperdensity along the right tentorium measuring approximately 2.1 x 0.6 x 1.0 cm likely relates to a small amount of subdural hemorrhage. Left frontal superficial soft tissue hematoma. There is no evidence of acute ischemia/infarct. The midline structures are intact, no midline shift. The ventricles and basal cisterns are within normal limits. The brainstem and cerebellum are unremarkable. The visualized intraorbital contents are unremarkable. The paranasal sinuses and mastoid air cells are well aerated. No acute osseous abnormality in the visualized skull base and calvarium. IMPRESSION: Subdural hemorrhage along the right tentorium measuring approximately 2.1 x 0.6 x1.0 cm. Left frontal superficial soft tissue hematoma. Critical results were discussed with Dr. Garcia on 04/08/2025 at 253 am by Robby Rosales MD. All CT scans at this facility use dose modulation, iterative reconstruction, and/or weight based dosing when appropriate to reduce radiation dose to as low as reasonably achievable. Finalized by Robby Roasles on 04/08/2025 2:59 AM X-ray chest 1 view Result Date: 04/07/2025 Narrative: XR CHEST 1 VW Clinical Information: Cough Comparison: 09/18/2024. IMPRESSION: * No pulmonary edema, vascular congestion with basilar atelectatic changes. No effusions. Cardiomegaly. Finalized by Ramu Williamson MD on 04/07/2025 8:17 PM HOSPITAL PROBLEM LIST Principal Problem: Acute upper GI bleed Active Problems: Hypertension Type 2 diabetes mellitus with diabetic polyneuropathy, with long-term current use of insulin ([facility]) Vitamin B12 deficiency Hyperlipidemia Hyperkalemia Weakness Paroxysmal atrial fibrillation ([facility]) Iron deficiency anemia due to chronic blood loss Vaginal bleeding Left lower lobe pulmonary infiltrate Acute kidney injury superimposed on stage 3b chronic kidney disease ([facility]) ASSESSMENT & PLAN Acute upper GI bleed -hold blood thinners -last dose of eliquis was 8/3 -iron daily -Protonix drip -H&H every 8 hours -transfuse 1 unit of blood -general surgery consulted- due to eliquis- would not recommend scope until /Saturday - per surgery, can do if she is still admitted or as OP. -CT ab/pelvis- Severe aortoiliac and mesenteric atherosclerotic changes, lipitor/thinners currentlyon hold Vaginal bleeding -check ultrasound abdomen pelvis -swimmer consulted Left lower lobe infiltrate community acquired -recently treated -add inflammatory markers if those are within normal limits will not start antibiotics -encourage cough and deep breathe -on room air Weakness/fatigue -PT and OT to see Acute on Chronic CKD stage IIIB Deficiency anemia secondary to chronic disease -follows with Oncology did review last note from 2025 as to which she received Aranesp every 2 weeks for anemia -also received IV Feraheme on 03/05 and 613 -follows with Nephrology outpatient -low threshold for getting Nephrology involved -baseline kidney function does appear in the high 2 range 1.99 April 12 2.38 April 11 2.9 for April 10 was 3.0 April 08 -intake and output daily weights -bladder scan was greater than 600- marino placed Type 2 DM with diabetic polyneuropathy with nursing home insulin use -continue with Lantus and a.c. and HS Accu-Cheks with sliding scale coverage -dietitian to follow Coronary artery disease Paroxysmal AFib Hypertension Hyperlipidemia Chronic heart failure with preserved ejection fraction Status post PCI to right coronary artery during a setting of inferior STEMI on 08/23 -reviewed cardiology note from 03/10/2025 discussed with patient no more indication for PCI or further cardiac testing -continue on lunchroom monitor -continue on amiodarone and Lopressor -holding thinners for now Recent subdural hematoma discharged on 04/12 from [facility] -this was after a trip & fall -Neurosurgery was following -keppra was ordered for seven days for seizure prophylaxis -keep BP < 140 systolic -was ok to resume anticoagulation after 10 days of stable head CT (04/18) would have been ok to resume 05/29 -Ct brain stable left frontal scalp hematoma Chronic B12 deficiency -on Lyrica -follows with Neurology reviewed note from 04/06/2025 at that time it does look like Lyrica was changed to 75 mg 3 times a day and 150 mg at night as well as decrease Eliquis to 2.5 mg twice a day Obesity BMI 40 -dietitian to follow Transaminitis -trend suspect reactive -get acute hepatitis panel -did have CT abdomen in ER Although bile duct appears somewhat prominent, this may represent reservoir effect secondary to remote cholecystectomy. -No focal hepatic or splenic abnormality on imaging Hyperkalemia -resolved -monitor daily. Hyponatremia -monitor closely was given fluids -is on diuretics normally - add urine osmol, serum osmol, urine sodium Sepsis suspected, no-not clinically evident at this time. Chart reviewed. Admission orders placed. Home medications reconciled. DVT/VTE prophylaxis: SCD and no pharmacologic prophylaxis due to GI bleed. GI prophylaxis: add pantoprazole. Protonix drip PT/OT to evaluate and treat. DC planning: Full code will need several days. Medically Ready for Discharge: Anticipated in 2-4 Days DANIELLE Baig 05/03/2025 11:54 AM [facility] 7AM-7PM & 7PM-7AM: EpicChat or page through On-Call [employer]. DANIELLE Baig 05/03/25 1209 I, Laina oRme MD, personally performed the face to face diagnostic evaluation on this patient. I have reviewed the CLAIRE's History, Exam, and MDM and agree with the assessment and plan as written. I have reviewed all laboratory findings and imaging reports/films. Dr Laina Rome MD, MRCP 05/03/2025 5:38 PM documented in this encounter Consult Notes * Marylin Dewey, DANIELLE - 05/11/2025 12:45 PM EDTAssociated Order(s): CONSULT WOUND CARE SERVICES Images from the original note were not included. Wound Care Service Line Consult Note Patient: Irma Caceres Date of Admission: 05/02/2025 8:05 PM Request for Consult: open area on coccyx PCP: DAGMAR HERNANDEZ, DANIELLE Admitted Chief Complaint: Chief Complaint Patient presents with Weakness - Generalized Fatigue Subjective/HPI: History of Present Illness: Irma Caceres is a 80 y.o. non smoker female who presented with acute upper GI bleed. Past medical history includes type 2 diabetes insulin dependent, iron deficiency anemia due to chronic blood loss. Wound care consulted for chronic open area and coccyx that started prior to admission. Patient likely will be discharged today 05/11/2025 to a local nursing facility. PMH: Past Medical History: Diagnosis Date Anemia Angina pectoris Arthritis C. difficile colitis 06/2023 still tx 08/08/23 Chronic kidney disease Chronic pain disorder Depression Diabetes mellitus type 2, controlled ([facility]) GERD (gastroesophageal reflux disease) Hyperlipidemia Hypertension Ischemic bowel disease Kidney stone hx Low back pain Myocardial infarction ([facility]) Obesity Osteoarthritis Osteoporosis Palpitations Paroxysmal A-fib ([facility]) Pneumonia 08/2024 Visual impairment Patient Active Problem List Diagnosis Palpitations Hypertension Normocytic anemia Arthritis BMI 40.0-44.9, adult ([facility]) Cervical spondylosis without myelopathy Chronic pain Type 2 diabetes mellitus with diabetic polyneuropathy, with long-term current use of insulin ([facility]) Former smoker Gout Polyneuropathy Vitamin B12 deficiency Vitamin D deficiency Over weight S/P lumbar discectomy Acute kidney injury superimposed on CKD Depression Hyperlipidemia Osteoporosis Disorder of sacrum Primary osteoarthritis of right hip Lumbosacral spondylosis without myelopathy Stage 3b chronic kidney disease (CKD) ([facility]) Hyperkalemia Gastroenteritis C. difficile colitis Ischemic bowel disease Personal history of colonic polyps Fundic gland polyposis of stomach Polyp of transverse colon Spinal stenosis of lumbar region with neurogenic claudication Restless leg syndrome Pneumonia of both lower lobes due to infectious organism Weakness ASCVD (arteriosclerotic cardiovascular disease) Paroxysmal atrial fibrillation ([facility]) Bilateral lower extremity edema Anemia of chronic disease Iron deficiency anemia due to chronic blood loss ERRONEOUS ENCOUNTER--DISREGARD Fall, initial encounter Severe malnutrition Acute upper GI bleed Vaginal bleeding Left lower lobe pulmonary infiltrate Acute kidney injury superimposed on stage 3b chronic kidney disease ([facility]) Transaminitis Pressure ulcer of left heel, stage 1 Dermatitis associated with moisture PSH: Past Surgical History: Procedure Laterality Date APPENDECTOMY 6 BACK SURGERY x 2 BREAST BIOPSY Left 06/03/2001 BREAST BIOPSY Left 1998 BREAST BIOPSY Left 2006 CARDIAC CATHETERIZATION CHOLECYSTECTOMY 1974 COLONOSCOPY N/A 05/22/2023 Performed by Triston Sanford DO at [facility] COLONOSCOPY DIAGNOSTIC / SCREENING N/A 05/07/2025 Performed by Kelvin Myles MD at [facility] CORONARY ANGIOPLASTY WITH STENT PLACEMENT 08/10/2024 x1 ESOPHAGOGASTRODUODENOSCOPY N/A 05/22/2023 Performed by Triston Sanford DO at [facility] ESOPHAGOGASTRODUODENOSCOPY DIAGNOSTIC N/A 05/05/2025 Performed by Kelvin Myles MD at [facility] HERNIA REPAIR HYSTERECTOMY 1981 INJECTION BLOCK EPIDURAL CAUDAL STEROID N/A 11/01/2023 Performed by Xu Campa MD at [facility] INJECTION BLOCK NERVE MEDIAL BRANCH: bilat L 4/5 5/ Bilateral 06/21/2023 Performed by Xu Campa MD at [facility] INJECTION BLOCK NERVE MEDIAL BRANCH: bilat L 4/5 5/1 Bilateral 02/22/2023 Performed by Xu Campa MD at [facility] INJECTION BLOCK SACROILIAC JOINT Right 02/07/2024 Performed by Xu Campa MD at [facility] INJECTION BLOCK SACROILIAC JOINT Right 09/13/2023 Performed by Xu Campa MD at [facility] INJECTION BLOCK SACROILIAC JOINT Right 11/09/2022 Performed by Xu Campa MD at [facility] INJECTION BURSA LARGE JOINT: right hip Right 12/28/2022 Performed by Xu Campa MD at [facility] INJECTION BURSA LARGE JOINT: right hip Right 07/19/2023 Performed by Xu Campa MD at [facility] OOPHORECTOMY ROTATOR CUFF REPAIR x 3 TUBAL LIGATION 1974 Allergies: Allergies Allergen Reactions Codeine affected my breathing , tylenol #3 specifically Sulfa (Sulfonamide Antibiotics) GI Disturbance Sulfamethoxazole-Trimethoprim Other reaction(s): Vomiting Trimethobenzamide Home Meds: Medications Prior to Admission Medication Sig Dispense Refill Last Dose/Taking ACCU-CHEK OLY PLUS TEST STRP strip 05/02/2025 Noon acetaminophen (TYLENOL ARTHRITIS) 650 mg 8 hr tablet Take 1 tablet (650 mg total) by mouth every 8 (eight) hours as needed for pain. 05/02/2025 Morning allopurinol (ZYLOPRIM) 300 mg tablet Take 1 tablet (300 mg total) by mouth in the morning. 05/02/2025Morning cyanocobalamin (VITAMIN B12) 1,000 mcg tablet, sublingual Place 1 tablet (1,000 mcg total) under the tongue in the morning. 90 tablet 3 05/02/2025 Morning ferrous sulfate 325 (65 FE) mg tablet Take 1 tablet (325 mg total) by mouth daily with breakfast. 05/02/2025 Morning FREESTYLE CUONG 2 SENSOR kit 05/02/2025 Morning insulin degludec (TRESIBA FLEXTOUCH U-100) 100 unit/mL (3 mL) insulin pen Inject 20 Units under theskin nightly. 05/01/2025 Evening insulin lispro (HumaLOG) 100 unit/mL insulin pen Inject under the skin. Sliding scale based on meals and blood sugar 05/02/2025 Morning metoprolol tartrate (LOPRESSOR) 25 mg tablet TAKE 1 TABLET BY MOUTH TWICE DAILY (MORNING AND BEFOREBEDTIME) 180 tablet 3 05/02/2025 Morning mupirocin (BACTROBAN) 2 % ointment Apply 1 Application topically in the morning and 1 Application before bedtime. 05/02/2025 Morning oxybutynin XL (DITROPAN-XL) 5 mg 24 hr tablet Take 1 tablet (5 mg total) by mouth in the morning. 05/02/2025 Morning pregabalin (LYRICA) 75 mg capsule Take 1 capsule (75 mg total) by mouth 3 (three) times a day AND 2capsules (150 mg total) nightly. 450 capsule 1 05/02/2025 Morning semaglutide (OZEMPIC) 0.25 mg or 0.5 mg(2 mg/1.5 mL) pen injector Inject 0.5 mg under the skin oncea week. Every saturday05/01/2025 Morning [DISCONTINUED] apixaban (ELIQUIS) 5 mg tablet Take 1 tablet (5 mg total) by mouth in the morning and 1 tablet (5 mg total) before bedtime. 05/02/2025 Morning [DISCONTINUED] clopidogreL (PLAVIX) 75 mg tablet Take 1 tablet (75 mg total) by mouth in the morning. 30 tablet 5 05/02/2025 Morning [DISCONTINUED] pantoprazole (PROTONIX) 40 mg EC tablet Take 1 tablet (40 mg total) by mouth daily. 90 tablet 3 05/01/2025 Noon isosorbide mononitrate (IMDUR) 30 mg 24 hr tablet Take 1 tablet (30 mg total) by mouth daily. (Patient not taking: Reported on 05/02/2025) Unknown polyethylene glycol (GLYCOLAX) 17 gram packet Take 17 g by mouth daily as needed (constipation). (Patient not taking: Reported on 05/02/2025) Unknown torsemide (DEMADEX) 10 mg tablet Take 1 tablet (10 mg total) by mouth daily. (Patient not taking: Reported on 05/02/2025) More than a month [DISCONTINUED] amiodarone (PACERONE) 200 mg tablet Take 1 tablet (200 mg total) by mouth in the morning and 1 tablet (200 mg total) before bedtime. 05/02/2025 Morning [DISCONTINUED] atorvastatin (LIPITOR) 80 mg tablet Take 1 tablet (80 mg total) by mouth in the morning. (Patient not taking: Reported on 05/02/2025) More than a month Social History: Social History Socioeconomic History Marital status: Spouse name: Not on file Number of children: Not on file Years of education: Not on file Highest education level: Not on file Occupational History Not on file Tobacco Use Smoking status: Former Current packs/day: 0.00 Average packs/day: 0.5 packs/day for 10.0 years (5.0 ttl pk-yrs) Types: Cigarettes Start date: 1974 Quit date: 1984 Years since quittin.6 Smokeless tobacco: Never Vaping Use Vaping status: Never Used Substance and Sexual Activity Alcohol use: Not Currently Drug use: No Sexual activity: Defer Partners: Male control/protection: Surgical Other Topics Concern Caffeine Use No Social History Narrative Not on file Social Drivers of Health Financial Resource Strain: Medium Risk (05/02/2025) Overall Financial Resource Strain (CARDIA) Difficulty of Paying Living Expenses: Somewhat hard Food Insecurity: No Food Insecurity (05/03/2025) Hunger Screening Food Insecurity - Worry: Never True Food Insecurity - Inability: Never True Recent Concern: Food Insecurity - Food Insecurity Present (05/02/2025) Hunger Screening Food Insecurity - Worry: Sometimes True Food Insecurity - Inability: Sometimes True Transportation Needs: Unmet Transportation Needs (05/02/2025) PRAPARE - Transportation Lack of Transportation (Medical): Yes Lack of Transportation (Non-Medical): Yes Physical Activity: Inactive (09/19/2024) Exercise Vital Sign Days of Exercise per Week: 0 days Minutes of Exercise per Session: 0 min Stress: Not on file Social Connections: Not on file Interpersonal Safety: Not At Risk (05/02/2025) Humiliation, Afraid, Rape, and Kick questionnaire Fear of Current or Ex-Partner: No Emotionally Abused: No Physically Abused: No Sexually Abused: No Housing Instability: Low Risk (05/02/2025) Housing Instability Housing Instability: No Family History: Family History Problem Relation Age of Onset Colon cancer Mother Brain cancer (CMS-HCC) Mother Heart disease Mother Diabetes Mother Hyperlipidemia Mother Hypertension Mother Cancer Father Lung cancer Father Breast cancer Sister 62 Cancer Sister Hypertension Sister Hyperlipidemia Sister Diabetes Sister Splenomegaly Sister Lung disease Sister Cancer Brother Heart disease Brother Stroke Brother Hyperlipidemia Brother Hypertension Brother Lung cancer Brother Aries Breast Cancer Neg Hx I have personal reviewed past medical history including surgeries, social history, and family history. I have also reviewed allergies and home medications. They are documented in this note to their detail, and if there are none noted, they will further indicate no pertinent history. Review of Systems Review of Systems Constitutional: Positive for fatigue. Negative for chills and fever. HENT: Negative for ear pain and sore throat. Eyes: Negative for pain and visual disturbance. Respiratory: Negative for cough and shortness of breath. Cardiovascular: Negative for chest pain and palpitations. Gastrointestinal: Negative for abdominal pain, blood in stool (occult negative) and vomiting. Genitourinary: Negative for dysuria and hematuria. Musculoskeletal: Positive for arthralgias and gait problem. Negative for back pain. Skin: Positive for color change and wound. Negative for rash. Neurological: Positive for weakness. Negative for seizures and syncope. Hematological: Bruises/bleeds easily. All other systems reviewed and are negative. Objective: Physical Exam Vital Signs: BP 148/61 Pulse 56 Temp 36.6 ??C (97.8 ??F) (Temporal) Resp 18 Ht 157.5 cm (5'2 ) Wt 94.8 kg (208 lb 14.4 oz) LMP (LMP Unknown) SpO2 99% BMI 38.21 kg/m?? Pain: Pain Assessment: No/denies pain Pain Score: 0 Pain Location: Hip, Buttocks Pain Descriptors: Aching Patient's Stated Acceptable Pain Level: No pain Physical Exam Vitals (on Ra) and nursing note reviewed. Constitutional: Appearance: She is well-developed. She is obese. HENT: Head: Atraumatic. Cardiovascular: Rate and Rhythm: Regular rhythm. Bradycardia present. Heart sounds: Normal heart sounds. No murmur heard. Pulmonary: Effort: Pulmonary effort is normal. No respiratory distress. Breath sounds: Normal breath sounds. No wheezing. Musculoskeletal: General: Normal range of motion. Cervical back: Neck supple. Right lower leg: Edema (2+) present. Left lower leg: Edema (2+) present. Lymphadenopathy: Cervical: No cervical adenopathy. Skin: General: Skin is warm and dry. Capillary Refill: Capillary refill takes 2 to 3 seconds. Coloration: Skin is pale. Findings: Bruising (left face) present. No rash. Neurological: Mental Status: She is alert and oriented to person, place, and time. Cranial Nerves: No cranial nerve deficit. Wound Assessment Wound 04/10/25 Skin Tear Hand Right (Active) Wound 04/10/25 Skin Tear Coccyx (Active) Wound Image 05/11/25752 Site Assessment Red;Yellow;Moist 05/11/25752 Sirena-wound Assessment Red;Blanchable erythema;Purple 05/11/25752 Shape round 05/03/25 1028 Wound Length (cm) 1.3 cm 05/03/25 1100 Wound Width (cm) 0.8 cm 05/03/25 1100 Wound Surface Area (cm^2) 0.82 cm^2 05/03/25 1100 Wound Depth (cm) 0.1 cm 05/03/25 1100 Wound Volume (cm^3) 0.054 cm^3 05/03/25 1100 Closure Open to air 05/03/25 1028 Drainage Description Serosanguineous;Hopkins;Yellow 05/03/25 1100 Drainage Amount Scant 05/03/25 1100 Dressing Type Triad hydro 05/11/25752 Dressing Changed New 05/11/25752 Dressing Status Clean;Dry;Intact 05/11/25752 Wound 04/11/25 Skin Tear Arm Proximal;Right (Active) Site Assessment Other (Comment) 05/11/25 0005 Sirena-wound Assessment Clean;Dry;Fragile 05/11/25 0005 Closure Open to air 05/06/25 0229 Drainage Description Serosanguineous 05/11/25752 Drainage Amount Small 05/11/25752 Treatments Cleansed with;Saline 05/11/25752 Dressing Type Vaseline gauze;Dry Dressing 05/11/25752 Dressing Changed Changed 05/11/25752 Dressing Status Clean;Dry;Intact 05/11/25752 Left heel, stage 1 PU blistering Labs/Studies Reviewed: Labs: Results from last 7 days Lab Units 05/11/25 0437 05/10/25 0532 05/09/25 0231 05/08/25 0517 05/07/25 0532 WBC x10E9/L 3.7* 4.5 4.2 4.9 4.5 HEMOGLOBIN g/dL 7.9* 7.5* 7.9* 7.7* 8.2* HEMATOCRIT % 23.6* 22.5* 23.8* 23.0* 24.6* MCV fL 87 87 88 88 88 PLATELETS X10E9/L 209 198 195 192 194 Results from last 7 days Lab Units 05/11/25 1149 05/11/25 0844 05/11/25 0437 05/10/25 2122 05/10/25 1757 05/10/25 1140 05/10/25 0532 05/09/25 0747 05/09/25 0231 05/08/25 0751 05/08/25 0517 05/07/25 1312 05/07/25 0532 POTASSIUM mmol/L -- -- 4.5 -- -- -- 4.6 -- 4.6 -- 4.1 -- 4.0 CALCIUM mg/dL -- -- 8.6 -- -- -- 8.6 -- 8.4* -- 8.3* -- 8.6 CO2 mmol/L -- -- 25 -- -- -- 24 -- 25 -- 23 -- 23 BUN mg/dL -- -- 34* -- -- -- 32* -- 35* -- 36* -- 44* CREATININE mg/dL -- -- 2.02* -- -- -- 1.77* -- 1.56* -- 1.59* -- 1.65* BEDSIDE GLUCOSE mg/dL 208* 98 -- 135* 265* < > -- < > -- < > -- < > -- GLUCOSE mg/dL -- -- 110* -- -- -- 110* -- 137* -- 58* -- 119* < > = values in this interval not displayed. Results from last 7 days Lab Units 05/08/25 1235 05/08/25 1108 INR 0.9 -- PROTIME sec 10.9 -- APTT sec -- 25* Results from last 7 days Lab Units 05/11/25 0437 05/10/25 0532 05/09/25 0231 05/08/25 0517 05/07/25 0532 ALT U/L 62* 69* 90* 100* 124* AST U/L 60* 74* 96* 126* 160* ALK PHOS U/L 120 124 134* 108 119 Pathology/Cytology Results Procedure Component Value Units Date/Time Surgical Pathology [[id number]] Collected: 05/07/25 1205 Specimen: Tissue from Colon Updated: 05/07/25 220 Surgical Pathology [[id number]] Collected: 05/05/25 1411 Specimen: Tissue from Stomach Updated: 05/05/25 2120 Microbiology Results No results found for the last 168 hours. Imaging: Vas venous duplex lwr bilateral Result Date: 05/11/2025 Right: Portable lower extremity deep vein thrombosis (DVT) exam performed. Common femoral, femoral,popliteal and deep calf muscle veins are compressible without intraluminal content. Spontaneous, common femoral, femoral and popliteal spectral Doppler signals. Great saphenous superficial vein is compressible in the thigh. Left: Portable lower extremity deep vein thrombosis (DVT) exam performed. Common femoral, femoral, popliteal and deep calf muscle veins are compressible without intraluminal content. Spontaneous, common femoral, femoral and popliteal spectral Doppler signals. Great saphenoussuperficial vein is compressible in the thigh. General: In-patient, bedside examination. Ultrasound pelvic complete Result Date: 05/03/2025 Pelvic ultrasound History:Vaginal bleeding Comparison: Findings: Transabdominal imaging was performed of the pelvis. Patient is status post hysterectomy and bilateral oophorectomy. No free fluid in the pelvis. No definite pelvic mass. Impression: * Unremarkable transabdominal ultrasound of the pelvis. Finalized by Duke Bob MD on 05/03/2025 12:[address] abdomen and pelvis without contrast Result Date: 05/02/2025 CLINICAL INFORMATION: elevated enzymes TECHNIQUE: CT ABDOMEN AND PELVIS WO CONT CT images of the abdomen and pelvis are obtained. Images are acquired without contrast. This produces some limitation. Comparison is made prior exam dated April 04, 2023. Limited images lung bases grossly clear. No focal hepatic or splenic abnormality. Patient is postcholecystectomy. Kidneys appear somewhat atrophic. Severe aortoiliac and mesenteric atherosclerotic changes noted. Vessels not well evaluated with this exam. Bowel is nondistended. Although bile duct appears somewhat prominent, this may represent reservoir effect secondary to remote cholecystectomy. Osseous structures appear intact. IMPRESSION: Severe aortoiliac and mesenteric atherosclerotic changes. If this is of clinical concern, contrasted exam may be helpful. All CT scans at this facility use dose modulation, iterative reconstruction, and/or weight based dosing when appropriate to reduce radiation dose to as low as reasonably achievable. Wor kstation:[id number] Finalized by Edward Jha MD on 05/02/2025 11:[address] brain without contrast Result Date: 05/02/2025 STUDY: CT HEAD WITHOUT CONTRAST CLINICAL HISTORY: Patient is feeling tired today. Recent fall. COMPARISON: 04/08/2025 TECHNIQUE: CT head was performed without contrast utilizing 2.5 mm axial reconstruction with images reviewed in bone and brain windows. Automated exposure control was utilized. FINDINGS: Noncontrast CT scan examination of the brain revealed mildly prominent ventricles, cortical sulci and sylvian fissures suggesting age-appropriate mild senescent atrophic changes. There is no evidence of mass, mass effect or midline shift. No evidence of intracranial bleeding. Incidental note ismade of hyperostosis frontalis. Small left frontal scalp hematoma. Vascular calcifications. Evidence of prior bilateral cataract surgery IMPRESSION: 1. No evidence of an acute intracranial process. Age-appropriate senescent atrophic changes. Left frontal scalp hematoma. All CT scans at this facility use dose modulation, iterative reconstruction, and/or weight based dosing when appropriate to reduce radiation dose to as low as reasonably achievable. Finalized by Roxanne Sears MD on 05/02/2025 8:54 PM X-ray chest 1 view Result Date: 05/02/2025 AP single view chest dated 05/02/2025 at 8:45 PM INDICATION: Fatigue. FINDINGS: Comparison is 04/10/2025. Enlarged cardiac/pericardiac silhouette. Left lower lobe atelectasis and/or infiltrates, not significantly changed. No edema or effusion. No pneumothorax. IMPRESSION: 1. Persistent left lower lobeinfiltrates and/or atelectasis not well evaluated on portable film. 2. Enlarged cardiac/pericardiacsilhouette. 3. No edema or effusion. Finalized by Joe Novoa MD on 58:52 PM Assessment/Plan/Education: Principal Problem: Acute upper GI bleed Active Problems: Hypertension Type 2 diabetes mellitus with diabetic polyneuropathy, with long-term current use of insulin ([facility]) Vitamin B12 deficiency Hyperlipidemia Hyperkalemia Weakness Paroxysmal atrial fibrillation ([facility]) Iron deficiency anemia due to chronic blood loss Vaginal bleeding Left lower lobe pulmonary infiltrate Acute kidney injury superimposed on stage 3b chronic kidney disease ([facility]) Pressure ulcer of left heel, stage 1 Dermatitis associated with moisture Dressing/Skin Care/Edema Management/Offloading: - Wash wounds mild soap and water Cover with TRIAD Cover with silicone ordered foam Change daily - continue specialty bed CANDELARIO/pressure redistribution - - turn and reposition minimally every 2 hours - pad and protect bony prominences - moisturize dry skin, do not massage vigorously - elevate bilateral lower extremities and float heels - elevate upper extremities on pillows - continue bilateral TRUVUE boots Antibiotics: per medical Studies: reviewed Medical Management: per primary team Wound care will not continue to follow while inpatient. Bedside nurse team to perform wound care asordered. Orders placed for discharge. Patient may discharge from wound care perspective. Follow up:none with wound care Total time spent was 40 minutes: Preparing to see the patient (e.g., review of tests) Obtaining and/or reviewing separately obtained history Performing a medically appropriate examination and/or evaluation Counseling and educating the patient/family/caregiver Ordering medications, tests, or procedures Documenting clinical information in the electronic or other health record Thank you for allowing us to participate in the care of this patient. Please feel free to call us with any questions or concerns. DANIELLE HANEY [facility] V[facility] Service Line M-F 8a-3p Secure Chat preferred & fastest response time Needs outside these hours please contact the reciprocating department: general surgery, vascular surgery, ortho or podiatry. Thank you! DANIELLE Haney 05/11/25 [id number] * Ron Adan MD - 05/10/2025 11:46 AM EDTAssociated Order(s): IP CONSULT TO CARDIOLOGY Images from the original note were not included. [facility] [address] [place] [address] CONSULTATION PATIENT NAME: Irma Caceres : 1945 AGE: 80 y.o. Date of Admission: 05/02/2025 Date of Consultation: 05/10/2025 SUBJECTIVE REASON FOR CONSULT: medication recommendation CHIEF COMPLAINT: medication management HISTORY OF PRESENT ILLNESS: 80-year-old female recently discharged comes back from home because of generalized weakness, altered mental status and evidence of blood down her leg She initially presented on 05/03 with generalized fatigue and was found to have acute upper GI bleed underwent EGD which demonstrated gastric mass with concern of adenocarcinoma Eliquis has been heldsince 05/02, her hemoglobin was 7 point 4 received blood transfusion on 05/03 She denies any cardiac complaints aside from generalized weakness and fatigue she did have a fall last week with left hemiface hematoma She was on Plavix and Eliquis until 05/02 and card table attendant consulted for antiplatelet anticoagulationrecommendation. She also has transaminitis and Cardiology is consulted for amiodarone as well PAST MEDICAL HISTORY Past Medical History: Diagnosis Date Anemia Angina pectoris Arthritis C. difficile colitis 06/2023 still tx 08/08/23 Chronic kidney disease Chronic pain disorder Depression Diabetes mellitus type 2, controlled ([facility]) GERD (gastroesophageal reflux disease) Hyperlipidemia Hypertension Ischemic bowel disease Kidney stone hx Low back pain Myocardial infarction ([facility]) Obesity Osteoarthritis Osteoporosis Palpitations Paroxysmal A-fib ([facility]) Pneumonia 08/2024 Visual impairment SURGICAL HISTORY has a past surgical history that includes Oophorectomy; Hysterectomy (1980); Breast biopsy (Left, 06/03/2001); Breast biopsy (Left, 1997); Cardiac catheterization; Cholecystectomy (1973); Appendectomy (1955); Breast biopsy (Left, 2005); Tubal ligation (1974); Rotator cuff repair; Back surgery; Hernia repair; Injection Nerve Block (Right, 11/09/2022); Injection Joint (Right, 12/28/2022); InjectionNerve Block (Bilateral, 02/22/2023); Colonoscopy (N/A, 05/22/2023); Esophagogastroduodenoscopy (N/A, 05/22/2023); Injection Nerve Block (Bilateral, 06/21/2023); Injection Joint (Right, 07/19/2023); Injection Nerve Block (Right, 09/13/2023); Epidural block injection (N/A, 11/01/2023); Injection Nerve Block (Right, 02/07/2024); Coronary angioplasty with stent (08/10/2024); Esophagogastroduodenoscopy (N/A, 05/05/2025); and Colonoscopy (N/A, 05/07/2025). SOCIAL HISTORY Social History Socioeconomic History Marital status: Spouse name: Not on file Number of children: Not on file Years of education: Not on file Highest education level: Not on file Occupational History Not on file Tobacco Use Smoking status: Former Current packs/day: 0.00 Average packs/day: 0.5 packs/day for 10.0 years (5.0 ttl pk-yrs) Types: Cigarettes Start date: 1974 Quit date: 1984 Years since quittin.6 Smokeless tobacco: Never Vaping Use Vaping status: Never Used Substance and Sexual Activity Alcohol use: Not Currently Drug use: No Sexual activity: Defer Partners: Male control/protection: Surgical Other Topics Concern Caffeine Use No Social History Narrative Not on file Social Drivers of Health Financial Resource Strain: Medium Risk (05/02/2025) Overall Financial Resource Strain (CARDIA) Difficulty of Paying Living Expenses: Somewhat hard Food Insecurity: No Food Insecurity (05/03/2025) Hunger Screening Food Insecurity - Worry: Never True Food Insecurity - Inability: Never True Recent Concern: Food Insecurity - Food Insecurity Present (05/02/2025) Hunger Screening Food Insecurity - Worry: Sometimes True Food Insecurity - Inability: Sometimes True Transportation Needs: Unmet Transportation Needs (05/02/2025) PRAPARE - Transportation Lack of Transportation (Medical): Yes Lack of Transportation (Non-Medical): Yes Physical Activity: Inactive (09/19/2024) Exercise Vital Sign Days of Exercise per Week: 0 days Minutes of Exercise per Session: 0 min Stress: Not on file Social Connections: Not on file Interpersonal Safety: Not At Risk (05/02/2025) Humiliation, Afraid, Rape, and Kick questionnaire Fear of Current or Ex-Partner: No Emotionally Abused: No Physically Abused: No Sexually Abused: No Housing Instability: Low Risk (05/02/2025) Housing Instability Housing Instability: No FAMILY HISTORY family history includes Brain cancer (CMS-HCC) in her mother; Breast cancer (age of onset: 62) in her sister; Cancer in her brother, father, and sister; Colon cancer in her mother; Diabetes in her mother and sister; Heart disease in her brother and mother; Hyperlipidemia in her brother, mother, andsister; Hypertension in her brother, mother, and sister; Lung cancer in her brother and father; Lung disease in her sister; Splenomegaly in her sister; Stroke in her brother. MEDICATIONS Prior to Admission medications Medication Sig Start Date End Date Taking? Authorizing Provider ACCU-CHEK OLY PLUS TEST STRP strip 03/15/23 Yes Not In System Ref Prov acetaminophen (TYLENOL ARTHRITIS) 650 mg 8 hr tablet Take 1 tablet (650 mg total) by mouth every 8 (eight) hours as needed for pain. Yes Not In System Ref Prov allopurinol (ZYLOPRIM) 300 mg tablet Take 1 tablet (300 mg total) by mouth in the morning. Yes Not In System Ref Prov amiodarone (PACERONE) 200 mg tablet Take 1 tablet (200 mg total) by mouth in the morning and 1 tablet (200 mg total) before bedtime. 12/17/24 Yes Not In System Ref Prov cyanocobalamin (VITAMIN B12) 1,000 mcg tablet, sublingual Place 1 tablet (1,000 mcg total) under the tongue in the morning. 06/28/22 Yes Luis Granger MD ferrous sulfate 325 (65 FE) mg tablet Take 1 tablet (325 mg total) by mouth daily with breakfast. Yes Not In System Ref Prov FREESTYLE CUONG 2 SENSOR kit 11/28/22 Yes Not In System Ref Prov insulin degludec (TRESIBA FLEXTOUCH U-100) 100 unit/mL (3 mL) insulin pen Inject 20 Units under theskin nightly. Yes Not In System Ref Prov insulin lispro (HumaLOG) 100 unit/mL insulin pen Inject under the skin. Sliding scale based on meals and blood sugar 03/04/22 Yes Not In System Ref Prov metoprolol tartrate (LOPRESSOR) 25 mg tablet TAKE 1 TABLET BY MOUTH TWICE DAILY (MORNING AND BEFOREBEDTIME) 10/19/24 Yes DANIELLE Clements mupirocin (BACTROBAN) 2 % ointment Apply 1 Application topically in the morning and 1 Application before bedtime. 03/24/25 Yes Not In System Ref Prov oxybutynin XL (DITROPAN-XL) 5 mg 24 hr tablet Take 1 tablet (5 mg total) by mouth in the morning. 02/13/23 Yes Not In System Ref Prov pantoprazole (PROTONIX) 40 mg EC tablet Take 1 tablet (40 mg total) by mouth daily. 07/07/21 Yes Duke Franklin MD pregabalin (LYRICA) 75 mg capsule Take 1 capsule (75 mg total) by mouth 3 (three) times a day AND 2capsules (150 mg total) nightly. 04/06/25 Yes DANIELLE Hills semaglutide (OZEMPIC) 0.25 mg or 0.5 mg(2 mg/1.5 mL) pen injector Inject 0.5 mg under the skin oncea week. Every saturday Yes Not In System Ref Prov apixaban (ELIQUIS) 5 mg tablet Take 1 tablet (5 mg total) by mouth in the morning and 1 tablet (5 mg total) before bedtime. Hold until biopsy results received from EGD. 05/14/25 DANIELLE Baig atorvastatin (LIPITOR) 80 mg tablet Take 1 tablet (80 mg total) by mouth every morning. TAKE 1 TABLET (80 MG TOTAL) BY MOUTH IN THE MORNING Hold d/t transaminitis, may resume if cmp in 1 week is normalized 05/14/25 DANIELLE Baig clopidogreL (PLAVIX) 75 mg tablet Take 1 tablet (75 mg total) by mouth in the morning. Hold until biopsy results received from EGD. 05/14/25 DANIELLE Baig isosorbide mononitrate (IMDUR) 30 mg 24 hr tablet Take 1 tablet (30 mg total) by mouth daily. Patient not taking: Reported on 05/02/2025 Not In System Ref Prov polyethylene glycol (GLYCOLAX) 17 gram packet Take 17 g by mouth daily as needed (constipation). Patient not taking: Reported on 05/02/2025 04/12/25 Minerva Castellanos PA-C tamsulosin (FLOMAX) 0.4 mg capsule Take 1 capsule (0.4 mg total) by mouth nightly. 05/07/25 Bethanie Marquez APRN-DWIGHT torsemide (DEMADEX) 10 mg tablet Take 1 tablet (10 mg total) by mouth daily. Patient not taking: Reported on 05/02/2025 Not In System Ref Prov ALLERGIES Codeine, Sulfa (sulfonamide antibiotics), Sulfamethoxazole-trimethoprim, and Trimethobenzamide REVIEW OF SYSTEMS Constitutional: No fevers or chills, no recent weight gain or weight loss or fatigue Eyes: No visual changes or diplopia ENT: No headaches, hearing loss or vertigo Cardiovascular: Per HPI Respiratory: No cough or wheezing, no sputum production, no hematemesis Gastrointestinal: No abdominal pain, no nausea, vomiting, constipation, diarrhea Genitourinary: No dysuria, or hematuria Musculoskeletal: No gait disturbance, weakness or joint complaints Integumentary: No rash or pruritis Neurological: No headache, no prior CVA/TIA Psychiatric: No anxiety, or depression Endocrine: No temperature intolerance Hematologic/Lymphatic: No abnormal bruising or bleeding OBJECTIVE VITAL SIGNS: BP 129/42 Pulse 57 Temp 36.6 ??C (97.9 ??F) (Oral) Resp 18 Ht 157.5 cm (5' 2 ) Wt 94.8 kg (208 lb 14.4 oz) LMP (LMP Unknown) SpO2 97% BMI 38.21 kg/m?? O2 Flow Rate (L/min): 0 L/min ADMIT WEIGHT: 99.2 kg (218 lb 11.2 oz) BMI: Body mass index is 38.21 kg/m??. Admission Weight: 99.2 kg (218 lb 11.2 oz) PHYSICAL EXAM General appearance: Awake, alert, cooperative Head: Normocephalic, without obvious abnormality, atraumatic Eyes: Conjunctivae/corneas clear, EOMs intact Neck: no adenopathy, no carotid bruit, no JVD, and thyroid: not enlarged Lungs: clear to auscultation bilaterally and no rhonchi or crackles , ' symmetric Heart: regular rate and rhythm, S1, S2 normal, no murmur, click, rub or gallop Abdomen: Soft, non-tender, bowel sounds normal, no organomegaly Extremities: 2+ bilateral lower extremity edema Skin: Skin color, turgor normal, no rashes or lesions Neurologic: Grossly normal CBC: Results from last 7 days Lab Units 05/10/25 0532 05/09/25 0231 05/08/25 0517 WBC x10E9/L 4.5 4.2 4.9 HEMOGLOBIN g/dL 7.5* 7.9* 7.7* HEMATOCRIT % 22.5* 23.8* 23.0* MCV fL 87 88 88 PLATELETS X10E9/L 198 195 192 BMP: Results from last 7 days Lab Units 05/10/25 0532 05/09/25 1103 05/09/25 0231 05/08/25 0517 SODIUM mmol/L 136 -- 136 136 POTASSIUM mmol/L 4.6 -- 4.6 4.1 CHLORIDE mmol/L 105 -- 110* 107 CO2 mmol/L 24 -- 25 23 BUN mg/dL 32* -- 35* 36* CREATININE mg/dL 1.77* -- 1.56* 1.59* CALCIUM mg/dL 8.6 -- 8.4* 8.3* MAGNESIUM mg/dL 1.8 2.1 1.7* 1.8 PT/INR: Results from last 7 days Lab Units 05/08/25 1235 PROTIME sec 10.9 INR 0.9 APTT: MAG: Results from last 7 days Lab Units 05/10/25 0532 05/09/25 1103 05/09/25 0231 MAGNESIUM mg/dL 1.8 2.1 1.7* D Dimer: Troponin I ProBNP Lipid Panel: Lab Results Component Value Date CHOL 84 (L) 02/08/2025 TRIG 120 02/08/2025 HDL 25 (L) 02/08/2025 CURRENT MEDICATIONS: [START ON 05/11/2025] amiodarone, 200 mg, oral, Daily ferrous sulfate, 325 mg, oral, Daily with breakfast furosemide, 40 mg, intravenous, Once insulin glargine, 15 Units, subcutaneous, Nightly insulin lispro, 2-10 Units, subcutaneous, With meals and nightly metoprolol tartrate, 25 mg, oral, BID miconazole, 1 applicator, vaginal, Nightly pantoprazole, 40 mg, oral, BID AC pregabalin, 75 mg, oral, BID AND pregabalin, 150 mg, oral, Nightly sodium chloride, 3 mL, intravenous, Q12H HUNG CONTINUOUS INFUSIONS: dextrose 5 % in water, 100 mL/hr heparin, 300-3,500 Units/hr, Last Rate: 1,000 Units/hr (05/09/25 1416) sodium chloride 0.9 %, 20 mL/hr CV HISTORY: ECHO: Echo complete W/ contrast Result Date: 04/09/2025 Left Ventricle: Left ventricle appears normal in size. Systolic function is low normal to mildly decreased with an ejection fraction of 50-55%. Right Ventricle: Right ventricular size is mildly dilated. The right ventricular basal diameter is 36.0 mm. Aortic Valve: There is trace regurgitation. There is no evidence of aortic valve stenosis. Mitral Valve: There is no regurgitation or stenosis. Tric uspid Valve: There is mild regurgitation. There is no evidence of tricuspid valve stenosis. Echo congenital limited W/O contrast Result Date: 08/11/2024 Left Ventricle: Normal left ventricular systolic function with a visually estimated EF of 50 - 55%.EF by 2D Simpsons Biplane is 51%. Left ventricle size is normal. Increased wall thickness. Findingsconsistent with mild concentric hypertrophy. Normal wall motion. Normal diastolic function. Right Ventricle: Normal systolic function. Aortic Valve: Mild regurgitation. Mitral Valve: Mild annular calcification. Mildly thickened leaflets. Mild stenosis noted. MV mean gradient is 4 mmHg. Tricuspid Valve: Mild regurgitation. Mildly elevated RVSP, consistent with mild pulmonary hypertension. The estimated RVSP is 35 mmHg. Left Atrium: Left atrium is moderately dilated. Right Atrium: Right atrium ismildly dilated. Pericardium: No pericardial effusion. Image quality is adequate. Left Ventricle Normal left ventricular systolic function with a visually estimated EF of 50 - 55%. EF by 2D Simpsons Biplane is 51%. Left ventricle size is normal. Increased wall thickness. Findings consistent with mild concentric hypertrophy. Normal wall motion. Normal diastolic function. Right Ventricle Right ventricle size is normal. Normal systolic function. Left Atrium Left atrium is moderately dilated. Right Atrium Right atrium is mildly dilated. IVC/SVC IVC diameter is less than or equal to 21 mm and decreases greater than 50% during inspiration; therefore the estimated right atrial pressure is normal (~3 mmHg). IVC size is normal. Mitral Valve Mild annular calcification. Mildly thickened leaflets. No r egurgitation. Mild stenosis noted. MV mean gradient is 4 mmHg. Tricuspid Valve Valve structure is normal. Mild regurgitation. No stenosis noted. Mildly elevated RVSP, consistent with mild pulmonary hypertension. The estimated RVSP is 35 mmHg. Aortic Valve Not well visualized. Mild regurgitation. Nostenosis. Pulmonic Valve The pulmonic valve visualization is suboptimal but appears to be functioning normally. No regurgitation. No stenosis noted. Ascending Aorta Normal sized aortic root. Pericardium No pericardial effusion. Study Details Image quality: adequate. Color flow Doppler was performed and pulse wave and/or continuous wave Doppler was performed. No contrast was given. Wall Scoring Baseline Score Index: 1.00 The left ventricular wall motion is normal. STRESS: Nuc stress Lexiscan Result Date: 10/14/2024 1. Lexiscan nuclear stress study was performed. 2. No significant ECG changes noted with stress. 3.Normal left ventricular ejection fraction and wall motion on gated images. Calculated LVEF more than 70%. 4. No transient ischemic dilatation noted. Calculated TID 0.95. 5. Abnormal study. There is amoderate anterolateral partial reversible defect suggestive of infarct with sirena-infarct ischemia. There is a moderate inferoseptal partially reversible defect suggestive of infarct with sirena-infarctischemia. However, there significant artifact and can not exclude contribution of attenuation correction artifact. Please correlate clinically. 6. Overall, probably intermediate risk for cardiovascular events. HOLTER: No results found. CARDIAC CATH: No results found. CAROTID: Vas carotid duplex bilateral Result Date: 04/11/2025 Right: Plaque with no significant ICA spectral Doppler or color flow disturbances; ICA 76 / 15 cm/sec. Antegrade vertebral artery flow. Left: Plaque with no significant ICA spectral Doppler or color flow disturbances; ICA 92 / 20 cm/sec. Antegrade vertebral artery flow. Conclusions: BILATERAL: Plaque without significant stenosis (<50%) of the internal carotid artery. Antegrade vertebral arteryflow. CXR: @CXR24@ EKG: TELEMETRY: Normal sinus rhythm ASSEMMENT Acute on chronic heart failure with preserved ejection fraction Coronary artery disease diagnosed in the setting of inferior STEMI with complete heart block statuspost PCI 07/2024. 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 treated medically Persistent atrial fibrillation on amiodarone and Eliquis currently held due to GI lead Right tentorial subdural hematoma very small 0.4 cm Gastric endocarcinoma concern on EGD and colitis on colonoscopy both pathology are pending BMI more than 40 Chronic lower extremity edema Diabetes mellitus type 2 diabetic polyneuropathy on insulin Acute on chronic blood-loss anemia with current hemoglobin of 7.5 with concern of GI and vaginal bleed Elevated liver enzymes PLAN Liver enzymes down trending elevated since March in the setting of active GI bleed and antibiotic use, it was normal prior ,I will decrease amiodarone to 200 mg daily and repeat CMP in a week if remains elevated then discontinue it completely current Re there less than 3 upper limit of normal and continuing amiodarone is reasonable. As of antiplatelet anticoagulation recommendation I did have an extensive discussion with the patient and the family at the bedside Eliquis will be held at risk of bleed outweigh the benefits of stroke prevention at this time especially with ongoing concern of GI malignancy. However I do recommend a single antiplatelet type Plavix or Brilinta or even aspirin with GI clearance given the history ofPCI Pathology of both gastric mass and colon are still pending Otherwise she does have 3+ bilateral lower extremity edema I recommend IV Lasix 40 mg then transition to oral Lasix after 2 doses with close monitoring of kidney function. If plan is to discharge than give her at least a dose IV and discharged on p.o. 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 UPON EVALUATION ON THE ACUTE CARE FLOOR SHE IS NOTED TO BE ANEMIC AND IS UNDERGOING BLOOD TRANSFUSION FOR THIS SHE IS ALSO NOTED TO HAVE HEMOCCULT- POSITIVE STOOLS IN THE EMERGENCY DEPARTMENT AND HAS HISTORY OF BLACK STOOLS AND ALSO HAS A HISTORY OF TRAUMATIC CATHETER PLACEMENT AT ALF AFTERWHICH SHE STATES SHE HAD BLOOD RUNNING DOWN HER LEG APPROXIMATELY 7-10 DAYS AGO. SHE IS CHRONICALLYANTICOAGULATED. UPON EVALUATION ON THE FLOOR, THERE WAS CONCERN FOR ACUTE VAGINAL BLEEDING WELL. PATIENT STATES SHE IS STATUS POST TAHBSO 50 YEARS AGO FOR BENIGN DISEASE AND SHE HAS NOT HAD ANY VAGINAL BLEEDING SINCE THIS TIME. Past Medical History: Diagnosis Date Anemia Angina pectoris Arthritis C. difficile colitis 06/2023 still tx 08/08/23 Chronic kidney disease Chronic pain disorder Depression Diabetes mellitus type 2, controlled ([facility]) GERD (gastroesophageal reflux disease) Hyperlipidemia Hypertension Ischemic bowel disease Kidney stone hx Low back pain Myocardial infarction ([facility]) Obesity Osteoarthritis Osteoporosis Palpitations Paroxysmal A-fib ([facility]) Pneumonia 08/2024 Visual impairment Past Surgical History: Surgical History[]Expand by Default Past Surgical History: Procedure Laterality Date APPENDECTOMY 1955 BACK SURGERY x 2 BREAST BIOPSY Left 06/03/2001 BREAST BIOPSY Left 1998 BREAST BIOPSY Left 2006 CARDIAC CATHETERIZATION CHOLECYSTECTOMY 1974 COLONOSCOPY N/A 05/22/2023 Performed by Triston Sanford DO at [facility] CORONARY ANGIOPLASTY WITH STENT PLACEMENT 08/10/2024 x1 ESOPHAGOGASTRODUODENOSCOPY N/A 05/22/2023 Performed by Triston Sanford DO at [facility] HERNIA REPAIR HYSTERECTOMY 1981 INJECTION BLOCK EPIDURAL CAUDAL STEROID N/A 11/01/2023 Performed by Xu Campa MD at [facility] INJECTION BLOCK NERVE MEDIAL BRANCH: bilat L 4/5 5/ Bilateral 06/21/2023 Performed by Xu Campa MD at [facility] INJECTION BLOCK NERVE MEDIAL BRANCH: bilat L 4/5 5/ Bilateral 02/22/2023 Performed by Xu Campa MD at [facility] INJECTION BLOCK SACROILIAC JOINT Right 02/07/2024 Performed by Xu Campa MD at [facility] INJECTION BLOCK SACROILIAC JOINT Right 09/13/2023 Performed by Xu Campa MD at [facility] INJECTION BLOCK SACROILIAC JOINT Right 11/09/2022 Performed by Xu Campa MD at [facility] IN[facility]CTION BURSA LARGE JOINT: right hip Right 12/28/2022 Performed by Xu Campa MD at [facility] BURSA LARGE JOINT: right hip Right 07/19/2023 Performed by Xu Campa MD at [facility] OOPHORECTOMY ROTATOR CUFF REPAIR x 3 TUBAL LIGATION Family History: History - Family Family History Problem Relation Age of Onset Colon cancer Mother Cancer Mother Heart disease Mother Diabetes Mother Hyperlipidemia Mother Hypertension Mother Cancer Father Hyperlipidemia Father Lung cancer Father Breast cancer Sister 62 Cancer Sister Hypertension Sister Hyperlipidemia Sister Diabetes Sister Splenomegaly Sister Lung disease Sister Cancer Brother Heart disease Brother Stroke Brother Hyperlipidemia Brother Hypertension Brother Lung cancer Brother Aries Breast Cancer Neg Hx Social History: Social History[]Expand by Default Social History Socioeconomic History Marital status: Tobacco Use Smoking status: Former Current packs/day: 0.00 Average packs/day: 0.5 packs/day for 10.0 years (5.0 ttl pk-yrs) Types: Cigarettes Start date: 1974 Quit date: 1984 Years since quittin.6 Smokeless tobacco: Never Vaping Use Vaping status: Never Used Substance and Sexual Activity Alcohol use: Not Currently Drug use: No Sexual activity: Defer Partners: Male control/protection: Surgical Other Topics Concern Caffeine Use No BP 105/48 Pulse 61 Temp 36.7 ??C (98 ??F) (Oral) Resp 18 Ht 157.5 cm (5' 2 ) Wt 105.7 kg (233 lb) LMP (LMP Unknown) SpO2 100% BMI 42.62 kg/m?? Physical Exam GEN AAOX3, NAD HEENT UNREMARKABLE HEART RRR LUNGS CTAB ABD BENIGN, OBESE, NTND PELVIS: EG APPROP FOR AGE, NO LESIONS VAGINA ATROPHIC APPROP FOR AGE, NO LESIONS, NO OBVIOUS TRAUMA, BUT SMALL AMOUNT OF DARK RED BLOOD MUCUS ON GLOVE DURING EXAMINATION, VAGINAL CULTURE TO BE OBTAINED BY NURSE AT LATER TIME BIMANUAL NO MASSES OR TENDERNESS RECTAL DEFERRED EXTREM POSITIVE BILATERAL LOWER EXTREMITY EDEMA, SCDS IN PLACE, MULTIPLE BRUISES NOTED IMAGING: SONO: Findings: Transabdominal imaging was performed of the pelvis. Patient is status post hysterectomy and bilateral oophorectomy. No free fluid in the pelvis. No definite pelvic mass. Impression: * Unremarkable transabdominal ultrasound of the pelvis. CT: CT ABDOMEN AND PELVIS WO CONT CT images of the abdomen and pelvis are obtained. Images are acquired without contrast. This produces some limitation. Comparison is made prior exam dated April 04, 2023. Limited images lung bases grossly clear. No focal hepatic or splenic abnormality. Patient is postcholecystectomy. Kidneys appear somewhat atrophic. Severe aortoiliac and mesenteric atherosclerotic changes noted. Vessels not wellevaluated with this exam. Bowel is nondistended. Although bile duct appears somewhat prominent, this may represent reservoir effect secondary to remote cholecystectomy. Osseous structures appear intact. IMPRESSION: Severe aortoiliac and mesenteric atherosclerotic changes. If this is of clinical concern, contrasted exam may be helpful. A/P: 80-YEAR-OLD WHITE FEMALE STATUS POST TAHBSO 50 YEARS AGO FOR BENIGN DISEASE 2. ADMITTED NOW FOR CHRONIC FATIGUE AND GENERALIZED WEAKNESS 3. CHRONIC ANEMIA 4. DOUBT RESIDENTIAL CAREGIVER ETIOLOGY 5. CHECK VAGINITIS PANEL 6. RO GI ETIOLOGY--REPORTS HO POLYPS ON COLONOSCOPY 3 YRS AGO 7. CAN DO EUA IF GETS SEDATION FOR GI EVAL 8. CAN DO OFFICE EVALUATION WELL OUTPATIENT WHEN DISCHARGED THANK YOU FOR ALLOWING US TO PARTICIPATE IN THIS PATIENTS CARE WITH YOU MARZENA JAY MD * Kelvin Myles MD - 05/03/2025 1:25 PM EDTAssociated Order(s): IP CONSULT TO GENERAL SURGERY Images from the original note were not included. Chief Complaint: Anemia, melena History of Present Illness: Irma Caceres is a 80 y.o. female who presented to the emergency department due to fatigue. She was recently discharged from the hospital after a fall and urinary tract infection. She returned to the ER due to fatigue as well as report of melanotic stool. Hemoccult stool was positive. She is on Eliquis as well as Plavix. CT abdomen pelvis showed severe aortoiliac and mesenteric atheroscleroticchanges. No acute intra-abdominal process. This morning her hemoglobin dropped to 6.7. She will receive 1 unit PRBC. Patient notes longstanding anemia. Notes longstanding melena due to iron supplementation. Her last EGD and colonoscopy were performed in 2022. Colonoscopy showed diverticulosis and polyps. Duodenitis, gastritis, fundic gland polyps. HPI Review of Systems Constitutional: Negative for fever and chills. Respiratory: Negative for shortness of breath. Cardiovascular: Negative for chest pain and palpitations. Gastrointestinal: Positive for black tarry stool. Negative for nausea, vomiting and abdominal pain. Genitourinary: Negative for dysuria and difficulty urinating. Skin: Negative for rash and wound. Allergic/Immunologic: Negative for immunocompromised state. Neurological: Negative for weakness and light-headedness. Hematological: Does not bruise/bleed easily. Psychiatric/Behavioral: Negative for behavioral problems and confusion. Past Medical History: Diagnosis Date Anemia Angina pectoris Arthritis C. difficile colitis 06/2023 still tx 08/08/23 Chronic kidney disease Chronic pain disorder Depression Diabetes mellitus type 2, controlled ([facility]) GERD (gastroesophageal reflux disease) Hyperlipidemia Hypertension Ischemic bowel disease Kidney stone hx Low back pain Myocardial infarction ([facility]) Obesity Osteoarthritis Osteoporosis Palpitations Paroxysmal A-fib ([facility]) Pneumonia 08/2024 Visual impairment Past Surgical History: Procedure Laterality Date APPENDECTOMY 1955 BACK SURGERY x 2 BREAST BIOPSY Left 06/03/2001 BREAST BIOPSY Left 1998 BREAST BIOPSY Left 2005 CARDIAC CATHETERIZATION CHOLECYSTECTOMY 1974 COLONOSCOPY N/A 05/22/2023 Performed by Triston Sanford DO at [facility] CORONARY ANGIOPLASTY WITH STENT PLACEMENT 08/10/2024 x1 ESOPHAGOGASTRODUODENOSCOPY N/A 05/22/2023 Performed by Triston Sanford DO at [facility] HERNIA REPAIR HYSTERECTOMY 1981 INJECTION BLOCK EPIDURAL CAUDAL STEROID N/A 11/01/2023 Performed by Xu Campa MD at [facility] INJECTION BLOCK NERVE MEDIAL BRANCH: bilat L 4/5 5/ Bilateral 06/21/2023 Performed by Xu Campa MD at [facility] INJECTION BLOCK NERVE MEDIAL BRANCH: bilat L 4/5 5/ Bilateral 02/22/2023 Performed by Xu Campa MD at [facility] INJECTION BLOCK SACROILIAC JOINT Right 02/07/2024 Performed by Xu Campa MD at [facility] INJECTION BLOCK SACROILIAC JOINT Right 09/13/2023 Performed by Xu Campa MD at [facility] INJECTION BLOCK SACROILIAC JOINT Right 11/09/2022 Performed by Xu Campa MD at [facility] BURSA LARGE JOINT: right hip Right 12/28/2022 Performed by Xu Campa MD at [facility] BURSA LARGE JOINT: right hip Right 07/19/2023 Performed by Xu Campa MD at [facility] OOPHORECTOMY ROTATOR CUFF REPAIR x 3 TUBAL LIGATION 1974 Allergies Allergen Reactions Codeine affected my breathing , tylenol #3 specifically Sulfa (Sulfonamide Antibiotics) GI Disturbance Sulfamethoxazole-Trimethoprim Other reaction(s): Vomiting Trimethobenzamide Current Facility-Administered Medications: acetaminophen (TYLENOL) tablet 650 mg, 650 mg, oral, Q6H PRN, Luigi Reese ESTIMATOR AND DRAFTER SUPERVISOR-ACADEMIC AFFAIRS MANAGER amiodarone (PACERONE) tablet 200 mg, 200 mg, oral, BID, Luigi Reese, ESTIMATOR AND DRAFTER SUPERVISOR- ACADEMIC AFFAIRS MANAGER, 200 mg at 05/03/25 0832 dextrose (GLUTOSE) 40 % gel 15 g, 15 g, oral, PRN, Luigi Woodotzer, ESTIMATOR AND DRAFTER SUPERVISOR-ACADEMIC AFFAIRS MANAGER dextrose 5 % (D5W) infusion, 100 mL/hr, intravenous, Continuous PRN, Luigi Reese ESTIMATOR AND DRAFTER SUPERVISOR-ACADEMIC AFFAIRS MANAGER dextrose 50 % in water (D50W) 50% solution 25 mL, 25 mL, intravenous, PRN, Luigi Reese, ESTIMATOR AND DRAFTER SUPERVISOR-ACADEMIC AFFAIRS MANAGER ferrous sulfate tablet 325 mg, 325 mg, oral, Daily with breakfast, Luigi Reese APRN-DWIGHT, 325 mgat 05/03/25 0832 glucagon HCL injection 1 mg, 1 mg, intramuscular, PRN, Luigi Floodzer, ESTIMATOR AND DRAFTER SUPERVISOR-ACADEMIC AFFAIRS MANAGER insulin glargine (LANTUS, SEMGLEE) injection pen 20 Units, 20 Units, subcutaneous, Nightly, Luigi Reese ESTIMATOR AND DRAFTER SUPERVISOR-ACADEMIC AFFAIRS MANAGER, 20 Units at 05/03/25 0208 insulin lispro (HumaLOG) injection 2-10 Units, 2-10 Units, subcutaneous, With meals and nightly, Luigi Reese APRN-ACADEMIC AFFAIRS MANAGER, 2 Units at 05/03/25 0209 magnesium sulfate IVPB 2000 mg/50 mL in iso-osmotic water (40 mg/mL premix), 2,000 mg, intravenous,PRN, Luigi Woodotzer, ESTIMATOR AND DRAFTER SUPERVISOR-ACADEMIC AFFAIRS MANAGER magnesium sulfate IVPB 4000 mg/100 mL in iso-osmotic water (40 mg/mL premix), 4,000 mg, intravenous, PRN, Luigi Reese, ESTIMATOR AND DRAFTER SUPERVISOR-ACADEMIC AFFAIRS MANAGER metoprolol tartrate (LOPRESSOR) tablet 25 mg, 25 mg, oral, BID, Luigi Floodzer, ESTIMATOR AND DRAFTER SUPERVISOR-ACADEMIC AFFAIRS MANAGER, 25 mg at 05/03/25 0205 ondansetron (PF) (ZOFRAN) injection 4 mg, 4 mg, intravenous, Q6H PRN, Luigi Floodzer, ESTIMATOR AND DRAFTER SUPERVISOR-ACADEMIC AFFAIRS MANAGER pantoprazole (PROTONIX) 80 mg in sodium chloride 0.9 % 100 mL (0.8 mg/mL) infusion, 8 mg/hr, intravenous, Continuous, Ivania Trevino ESTIMATOR AND DRAFTER SUPERVISOR-ACADEMIC AFFAIRS MANAGER, Last Rate: 10 mL/hr at 05/03/25 0830, 8 mg/hr at 05/03/25 0830 pregabalin (LYRICA) capsule 75 mg, 75 mg, oral, TID AND pregabalin (LYRICA) capsule 150 mg, 150mg, oral, Nightly, Luigi Reese, ESTIMATOR AND DRAFTER SUPERVISOR-ACADEMIC AFFAIRS MANAGER, 150 mg at 05/03/25 0205 sodium chloride 0.9 % flush 3 mL, 3 mL, intravenous, PRN, Luigi Floodzer, ESTIMATOR AND DRAFTER SUPERVISOR-ACADEMIC AFFAIRS MANAGER sodium chloride 0.9 % flush 3 mL, 3 mL, intravenous, Q12H HUNG, Luigi Woodotzer, ESTIMATOR AND DRAFTER SUPERVISOR-ACADEMIC AFFAIRS MANAGER, 3 mL at 05/03/25 0205 sodium chloride 0.9 % flush bag, 25 mL, intravenous, PRN, Luigi Brie Krotzer, ESTIMATOR AND DRAFTER SUPERVISOR-ACADEMIC AFFAIRS MANAGER sodium chloride 0.9 % infusion, 20 mL/hr, intravenous, Continuous PRN, Luigi Floodzer, ESTIMATOR AND DRAFTER SUPERVISOR-ACADEMIC AFFAIRS MANAGER sodium chloride 0.9 % infusion, 75 mL/hr, intravenous, Continuous, Luigi Floodzer, ESTIMATOR AND DRAFTER SUPERVISOR-ACADEMIC AFFAIRS MANAGER, Last Rate: 75 mL/hr at 05/03/25 0530, Rate Verify at 05/03/25 0530 sodium chloride 0.9 % infusion, 20 mL/hr, intravenous, Continuous PRN, Bethanie Marquez, ESTIMATOR AND DRAFTER SUPERVISOR-ACADEMIC AFFAIRS MANAGER Social History Socioeconomic History Marital status: Spouse name: Not on file Number of children: Not on file Years of education: Not on file Highest education level: Not on file Occupational History Not on file Tobacco Use Smoking status: Former Current packs/day: 0.00 Average packs/day: 0.5 packs/day for 10.0 years (5.0 ttl pk-yrs) Types: Cigarettes Start date: 1974 Quit date: 1984 Years since quittin.6 Smokeless tobacco: Never Vaping Use Vaping status: Never Used Substance and Sexual Activity Alcohol use: Not Currently Drug use: No Sexual activity: Defer Partners: Male control/protection: Surgical Other Topics Concern Caffeine Use No Social History Narrative Not on file Social Drivers of Health Financial Resource Strain: Medium Risk (05/02/2025) Overall Financial Resource Strain (CARDIA) Difficulty of Paying Living Expenses: Somewhat hard Food Insecurity: No Food Insecurity (05/03/2025) Hunger Screening Food Insecurity - Worry: Never True Food Insecurity - Inability: Never True Recent Concern: Food Insecurity - Food Insecurity Present (05/02/2025) Hunger Screening Food Insecurity - Worry: Sometimes True Food Insecurity - Inability: Sometimes True Transportation Needs: Unmet Transportation Needs (05/02/2025) PRAPARE - Transportation Lack of Transportation (Medical): Yes Lack of Transportation (Non-Medical): Yes Physical Activity: Inactive (09/19/2024) Exercise Vital Sign Days of Exercise per Week: 0 days Minutes of Exercise per Session: 0 min Stress: Not on file Social Connections: Not on file Interpersonal Safety: Not At Risk (05/02/2025) Humiliation, Afraid, Rape, and Kick questionnaire Fear of Current or Ex-Partner: No Emotionally Abused: No Physically Abused: No Sexually Abused: No Housing Instability: Low Risk (05/02/2025) Housing Instability Housing Instability: No Family History Problem Relation Age of Onset Colon cancer Mother Brain cancer (CMS-HCC) Mother Heart disease Mother Diabetes Mother Hyperlipidemia Mother Hypertension Mother Cancer Father Lung cancer Father Breast cancer Sister 62 Cancer Sister Hypertension Sister Hyperlipidemia Sister Diabetes Sister Splenomegaly Sister Lung disease Sister Cancer Brother Heart disease Brother Stroke Brother Hyperlipidemia Brother Hypertension Brother Lung cancer Brother Aries Breast Cancer Neg Hx Physical Exam Vitals reviewed. Constitutional: Appearance: Normal appearance. HENT: Head: Normocephalic and atraumatic. Eyes: Pupils: Pupils are equal, round, and reactive to light. Cardiovascular: Rate and Rhythm: Normal rate. Pulmonary: Effort: Pulmonary effort is normal. Abdominal: General: There is no distension. Palpations: Abdomen is soft. Tenderness: There is no abdominal tenderness. Musculoskeletal: General: No swelling. Skin: General: Skin is warm and dry. Neurological: Mental Status: She is alert and oriented to person, place, and time. Mental status is at baseline. Psychiatric: Mood and Affect: Mood normal. Behavior: Behavior normal. Vital Signs: Blood pressure (!) 88/46, pulse 61, temperature 36.8 ??C (98.2 ??F), temperature source Oral, resp. rate 16, height 157.5 cm (5' 2 ), weight 105.7 kg (233 lb), SpO2 94%, not currently . Respiratory Source: O2 Device: None (Room air) Admission Weight: Weight: 99.2 kg (218 lb 11.2 oz) Labs: Lab Results Component Value Date WBC 11.2 (H) 05/03/2025 HGB 6.7 (LL) 05/03/2025 HCT 20.4 (L) 05/03/2025 MCV 88 05/03/2025 PLT 195 05/03/2025 Lab Results Component Value Date GLU 77 05/03/2025 CALCIUM 8.1 (L) 05/03/2025 K 4.4 05/03/2025 CO2 22 05/03/2025 CL 98 05/03/2025 BUN 97 (H) 05/03/2025 CREATININE 3.65 (H) 05/03/2025 No results found for: AMYLASE Lab Results Component Value Date LIPASE 28 04/07/2025 Lab Results Component Value Date ALT 142 (H) 05/03/2025 AST 248 (H) 05/03/2025 ALKPHOS 137 (H) 05/03/2025 Lab Results Component Value Date INR 1.7 (H) 04/08/2025 INR 2.0 (H) 04/07/2025 INR 2.1 (H) 09/18/2024 PROTIME 19.5 (H) 04/08/2025 PROTIME 23.0 (H) 04/07/2025 PROTIME 24.0 (H) 09/18/2024 Assessment: Irma Caceres is a 80 y.o.female with anemia and melena. positive fecal occult blood Eliquis/plavix last dose 05/02 Plan: Plan for EGD and colonoscopy on 05/05/2025 Evaluation included: Preparing to see the patient (e.g., review of tests) Obtaining and/or reviewing separately obtained history Performing a medically appropriate examination and/or evaluation Counseling and educating the patient/family/caregiver Referring and communicating with other health foster care worker Kelvin Myles MD [facility] General Surgery [place] documented in this encounter ED Notes * Yvette Watson DO - 05/02/2025 8:12 PM EDTAssociated Order(s): Critical Care Images from the original note were not included. [facility] - EMERGENCY Pt Name: Irma Caceres Birthdate: 1945 Chief Complaint: Chief Complaint Patient presents with ??? Weakness - Generalized ??? Fatigue History of Present Illness: Patient is a 80-year-old female who presents to the emergency department for evaluation of fatigue.Patient reports that she was sleeping all day and did not feel like getting up today, and family thought that was concerning and wanted her to be seen in the emergency department. She was recently discharged from the hospital after a fall and a urinary tract infection. Patient states that she has no complaints at this time. She states that she just feels tired. No pain. No chest pain or shortnessa breath. No fevers. No belly pain. She does have some leg swelling. She does walk occasionally, but not often, and when she does it is usually with a walker. No other complaints at this time. Upon evaluation, patient is alert, acting appropriate, in no acute respiratory distress, speaking full sentences. Past Medical History: Past Medical History: Diagnosis Date ??? Anemia ??? Angina pectoris ??? Arthritis ??? C. difficile colitis 06/2023 still tx 08/08/23 ??? Chronic kidney disease ??? Chronic pain disorder ??? Depression ??? Diabetes mellitus type 2, controlled ([facility]) ??? GERD (gastroesophageal reflux disease) ??? Hyperlipidemia ??? Hypertension ??? Ischemic bowel disease ??? Kidney stone hx ??? Low back pain ??? Myocardial infarction ([facility]) ??? Obesity ??? Osteoarthritis ??? Osteoporosis ??? Palpitations ??? Paroxysmal A-fib (CMS-HCC) ??? Pneumonia 08/2024 ??? Visual impairment Past Surgical History: Past Surgical History: Procedure Laterality Date ??? APPENDECTOMY 1955 ??? BACK SURGERY x 2 ??? BREAST BIOPSY Left 06/03/2001 ??? BREAST BIOPSY Left 1997 ??? BREAST BIOPSY Left 2005 ??? CARDIAC CATHETERIZATION ??? CHOLECYSTECTOMY 1974 ??? COLONOSCOPY N/A 05/22/2023 Performed by Triston Sanford DO at [facility] ??? CORONARY ANGIOPLASTY WITH STENT PLACEMENT 08/10/2024 x1 ??? ESOPHAGOGASTRODUODENOSCOPY N/A 05/22/2023 Performed by Triston Sanford DO at [facility] ??? HERNIA REPAIR ??? HYSTERECTOMY 1980 ??? INJECTION BLOCK EPIDURAL CAUDAL STEROID N/A 11/01/2023 Performed by Xu Campa MD at [facility] ??? INJECTION BLOCK NERVE MEDIAL BRANCH: bilat L 4/5 5/ Bilateral 06/21/2023 Performed by Xu Campa MD at [facility] ??? INJECTION BLOCK NERVE MEDIAL BRANCH: bilat L 4/5 5/ Bilateral 02/22/2023 Performed by [facility] Camp[facility] [facility] ??? INJECTION BLOCK SACROILIAC JOINT Right 02/07/2024 Performed by Xu Campa MD at [facility] ??? INJECTION BLOCK SACROILIAC JOINT Right 09/13/2023 Performed by Xu Campa MD at [facility] ??? INJECTION BLOCK SACROILIAC JOINT Right 11/09/2022 Performed by Xu Campa MD at [facility] ??? INJECTION BURSA LARGE JOINT: right hip Right 12/28/2022 Performed by Xu Campa MD at [facility] ??? INJECTION BURSA LARGE JOINT: right hip Right 07/19/2023 Performed by Xu Campa MD at [facility] ??? OOPHORECTOMY ??? ROTATOR CUFF REPAIR x 3 ??? TUBAL LIGATION 1974 Family History: Family History Problem Relation Age of Onset ??? Colon cancer Mother ??? Cancer Mother ??? Heart disease Mother ??? Diabetes Mother ??? Hyperlipidemia Mother ??? Hypertension Mother ??? Cancer Father ??? Hyperlipidemia Father ??? Lung cancer Father ??? Breast cancer Sister 62 ??? Cancer Sister ??? Hypertension Sister ??? Hyperlipidemia Sister ??? Diabetes Sister ??? Splenomegaly Sister ??? Lung disease Sister ??? Cancer Brother ??? Heart disease Brother ??? Stroke Brother ??? Hyperlipidemia Brother ??? Hypertension Brother ??? Lung cancer Brother ??? Aries Breast Cancer Neg Hx Social History: Social History Socioeconomic History ??? Marital status: Tobacco Use ??? Smoking status: Former Current packs/day: 0.00 Average packs/day: 0.5 packs/day for 10.0 years (5.0 ttl pk-yrs) Types: Cigarettes Start date: 1974 Quit date: 1984 Years since quittin.6 ??? Smokeless tobacco: Never Vaping Use ??? Vaping status: Never Used Substance and Sexual Activity ??? Alcohol use: Not Currently ??? Drug use: No ??? Sexual activity: Defer Partners: Male control/protection: Surgical Other Topics Concern ??? Caffeine Use No Social Drivers of Health Financial Resource Strain: Patient Declined (01/04/2025) Overall Financial Resource Strain (CARDIA) ??? Difficulty of Paying Living Expenses: Patient declined Food Insecurity: No Food Insecurity (05/02/2025) Hunger Screening ??? Food Insecurity - Worry: Never True ??? Food Insecurity - Inability: Never True Transportation Needs: No Transportation Needs (04/08/2025) PRAPARE - Transportation ??? Lack of Transportation (Medical): No ??? Lack of Transportation (Non-Medical): No Physical Activity: Inactive (09/19/2024) Exercise Vital Sign ??? Days of Exercise per Week: 0 days ??? Minutes of Exercise per Session: 0 min Interpersonal Safety: Not At Risk (04/08/2025) Humiliation, Afraid, Rape, and Kick questionnaire ??? Fear of Current or Ex-Partner: No ??? Emotionally Abused: No ??? Physically Abused: No ??? Sexually Abused: No Housing Instability: Low Risk (04/08/2025) Housing Instability ??? Housing Instability: No Review of Systems: Review of Systems Physical Exam: ED Triage Vitals [05/02/252004] Temp Heart Rate Resp BP SpO2 36.7 ??C (98 ??F) 59 19 (!) 117/95 98 % Temp Source Heart Rate Source Patient Position BP Location FiO2 (%) Oral Pulse Ox;Monitor Semi-fowlers Left arm -- Vitals: 05/02/25 2054 05/02/25 2130 05/02/25 2200 05/02/25 2230 BP: (!) 138/103 (!) 86/63 104/52 117/55 Temp: TempSrc: Pulse: 64 61 69 61 Resp: 20 17 22 19 SpO2: 97% 93% 95% 96% MAP (mmHg): 114 71 65 Weight: Physical Exam Vitals and nursing note reviewed. Exam conducted with a certified technician present. Constitutional: General: She is not in acute distress. Appearance: Normal appearance. She is obese. She is not ill-appearing or toxic-appearing. HENT: Head: Normocephalic and atraumatic. Right Ear: External ear normal. Left Ear: External ear normal. Nose: Nose normal. Mouth/Throat: Mouth: Mucous membranes are moist. Eyes: Conjunctiva/sclera: Conjunctivae normal. Cardiovascular: Rate and Rhythm: Normal rate and regular rhythm. Heart sounds: Normal heart sounds. Pulmonary: Effort: Pulmonary effort is normal. No respiratory distress. Breath sounds: Normal breath sounds. No wheezing. Abdominal: General: Abdomen is flat. Palpations: Abdomen is soft. Tenderness: There is no abdominal tenderness. Genitourinary: Rectum: Guaiac result positive. Comments: Rectal exam performed after family stated that patient had black stool earlier today. Hemoccult positive. Musculoskeletal: General: Normal range of motion. Cervical back: Normal range of motion. Right lower le+ Edema present. Left lower le+ Edema present. Skin: General: Skin is warm and dry. Capillary Refill: Capillary refill takes less than 2 seconds. Findings: Bruising present. No rash. Comments: Scattered bruising noted to abdomen and face Neurological: General: No focal deficit present. Mental Status: She is alert and oriented to person, place, and time. Psychiatric: Mood and Affect: Mood normal. Behavior: Behavior normal. Thought Content: Thought content normal. Judgment: Judgment normal. Procedure: Critical Care Performed by: Yvette Watson DO Authorized by: Yvette Watson DO Critical care provider statement: Critical care time (minutes): 35 Critical care time was exclusive of: Separately billable procedures and treating other patients Critical care was necessary to treat or prevent imminent or life-threatening deterioration of the following conditions: GI bleed. Critical care was time spent personally by me on the following activities: Blood draw for specimens, development of treatment plan with patient or surrogate, discussions with consultants, discussionswith primary provider, evaluation of patient's response to treatment, examination of patient, interpretation of cardiac output measurements, obtaining history from patient or surrogate, ordering and performing treatments and interventions, ordering and review of laboratory studies, ordering and review of radiographic studies, pulse oximetry, re-evaluation of patient's condition and review of old charts Care discussed with: admitting provider Comments: And with surgery consultation. Re-evaluation: Re-Evaluation Medical Decision Making This is a 80 y.o. female presenting for Weakness - Generalized and Fatigue. On arrival patient's weight is 99.2 kg (218 lb 11.2 oz). Her oral temperature is 36.7 ??C (98 ??F). Her blood pressure is 117/95 (abnormal) and her pulse is 59. Her respiration is 19 and oxygen saturation is 98%. History provided by patient and family. Physical exam: The patient appears to be in no apparent distress and vital signs are stable.. Plan of care: labs, imaging Evaluation: Disposition: Based on the diagnostic results and physical exam, pt requires admission... No emergent or otherwise concerning conditions were identified during this encounter. Patient is deemed stablefor discharge at this time. Patient was given strict return precautions. Patient verbalized understanding of follow up instructions. All questions were answered. Anticipatory guidance given. Patient is agreeable for discharge. Amount and/or Complexity of Data Reviewed Labs: ordered. Decision-making details documented in ED Course. Radiology: ordered. Decision-making details documented in ED Course. ECG/medicine tests: ordered and independent interpretation performed. Decision- making details documented in ED Course. Details: ECG notable for NSR and no acute ischemic changes. See iECG Discussion of management or test interpretation with external provider(s): Esteban Reese and will admit under Dr. Balderas. With consultation to Dr. Myles. I attempted to place the patient in the ICU here just to make sure she remained stable overnight due to the GI bleeding even though it is minor. Her blood pressure is on the lower end of normal. Theyrecommended that nursing staffing it was difficult so they recommended but the patient had an intermediate care. So we will agree to that based on nursing staffing with some hesitation. Risk Decision regarding hospitalization. ED Course: ED Course as of 05/11/25 1043 Sun May 02, 20252044 To provide more history. They state that patient was recently released from the hospital aftera subdural hematoma and a urinary tract infection. They state that she does not get around very well, but she noted that she was very fatigued and had to have a bowel movement today. They noticed that her bowel movement was black. Patient currently is on Eliquis and Plavix. [STEPHANIE] 2054 I reviewed outside charts It appears that patient has been on Levaquin from 04/13-04/21. [STEPHANIE] 2055 Pt currently on Keflex for UTI [STEPHANIE] 2103 X-ray chest 1 view IMPRESSION: 1. Persistent left lower lobe infiltrates and/or atelectasis not well evaluated on portable film. 2. Enlarged cardiac/pericardiac silhouette. 3. No edema or effusion. [STEPHANIE] 2103 CT brain without contrast IMPRESSION: 1. No evidence of an acute intracranial process. Age-appropriate senescent atrophic changes. Left frontal scalp hematoma. [STEPHANIE] 2158 Dr. Myles said she would be comfortable consulting on this patient as a hospital admission [STEPHANIE] 2201 Dr Watson reviewed the current and previous chest xray and does not feel the read is from anyinfectious etiology. [STEPHANIE] 2203 Comprehensive metabolic panel(!): Sodium 126(!) Potassium 5.5(!) Chloride 93(!) CARBON DIOXIDE 24 Anion gap 9 BUN 134(!) Creatinine 3.79(!) Glucose 231(!) CALCIUM 8.1(!) TOTAL PROTEIN 5.7(!) Albumin 2.8(!) Alkaline phosphatase 166(!) AST 225(!) ALT 141(!) BILIRUBIN,TOTAL 0.7 eGFR (CKD-EPI)non-race dependent 12(!) [STEPHANIE] ED Course User Index [STEPHANIE] Ivania Trevino, ESTIMATOR AND DRAFTER SUPERVISOR-ACADEMIC AFFAIRS MANAGER Clinical Impressions as of 05/11/25 1043 ERNESTINE (acute kidney injury) Hyperkalemia Transaminitis Acute upper GI bleed Polyneuropathy Stage 3b chronic kidney disease (CKD) ([facility]) Paroxysmal atrial fibrillation ([facility]) ASCVD (arteriosclerotic cardiovascular disease) Type 2 diabetes mellitus with diabetic polyneuropathy, with long-term current use of insulin ([facility]) . ED Disposition ED Disposition Admit Date/Time Sun May 02, 2025 10:10 PM Comment At this time, the patient has objective evidence of an acute process that will likely require hospitalization for greater than 2 midnights. The patient will be admitted. Shared/Split Visit 20:49 EDT Stephanie Miranda (felix), scribed for and in the presence of: Dr. Watson who performed the aboveservice. Dr. Walter Miranda personally performed a [id number] diagnostic evaluation on this patient. I personally made and approved the management plan for this patient and take responsibility for the patient management. Additional Notes/Findings: ----- Stephanie Miranda (felix), documented on behalf of Dr. Watson. 8:49 PM Irma Caceres is a 80 y.o. female presenting to the ED for chief complaint of weakness. Dr. Watson personally saw and evaluated the patient. Dr. Watson discussed the plan with the CLAIRE/ Resident. Dr. Watson personally made/approved the management plan for this patient and takes responsibility for the patient management. Exam findings as follows: Constitutional: Awake and alert, pale HENT: Normocephalic and atraumatic Eyes: Conjunctiva unremarkable Cardiovascular: Heart rate regular Pulmonary: Easy work of breathing, speaking in full sentences Abdominal: Flat and non-distended Skin: Warm and dry, bruising to left side of face and upper extremities Musculoskeletal: Moving all extremities spontaneously ----- Please note that portions of this note were completed with a voice recognition program. Efforts were made to edit the dictations but occasionally words are mis-transcribed. Ivania Trevino APRN-DWIGHT 05/02/252013 Yvette Watson DO 05/02/252035 Stephanie Quiroga 05/02/252054 Stephanie Quiroga 05/02/252055 Ivania Trevino APRN-DWIGHT 05/02/252150 Ivania Trevino APRN-ACADEMIC AFFAIRS MANAGER 05/02/252226 Yvette Watson DO 05/02/25 2240 documented in this encounter Miscellaneous Notes * Query Response - Wesly Mores MD - 05/13/2025 9:49 AM EDT Query Response Note CDI QUERY TEXT: Confirmation of Diagnosis From Report [id number] Disclaimer: By submitting this query, we are merely seeking further clarification of documentation to accurately reflect all conditions that you are monitoring, evaluating, treating or that extend the hospitalization or utilize additional resources of care. Please utilize your independent clinical judgment when addressing the question(s) below. Dear Dr. Morse, For compliant coding and billing, your assistance is needed with confirmation of a condition(s) identified in the following report(s): path report Final Diagnosis Mass, gastric body, biopsy: Superficial biopsy of atypical epithelial proliferation with necrosis, consistent with adenocarcinoma. at 1615 EDT Gross Description Received in formalin labeled PATRIZIA, biopsy of stomach body necrotic mass are 2 hopkins bits of softtissue, each 0.2 cm in greatest dimension. Filtered and submitted in a single cassette. (1, ns, [id number], m7) MG Based on your medical judgement, can you please indicate in the progress notes whether or not you agree with this diagnosis(es). Your response can include none or not applicable. Thank you, Ira Donovan, [facility], PRODUCT SAFETY TECHNICIAN, Inpatient Manager Employment [email or web address] The patient's Clinical Indicators include: We are not permitted to code a condition documented only in an interpreted medical report without provider confirmation of that condition. CDI RESPONSE TEXT: Gastric adenocarcinoma Query created by: Ira Donovan on 05/12/2025 11:02 AM Electronically signed by: Wesly Morse MD 05/13/2025 9:47 AM * Plan of Care - Lola Huff RN - 05/11/2025 12:53 PM EDT Problem: Discharge Planning Goal: Discharge to post-acute care, other facility, or home with appropriate resources Description: Patient's goal is: INTERVENTIONS 1. Conduct assessment to determine patient/family and health care team treatment goals, and need for post-acute services based on payer coverage, community resources, and patient preferences, and barriers to discharge 2. Coordinate with Social work, Care Navigation, and Utilization Review to arrange appropriate level of services according to patient's needs based on patient preference and payer coverage in collaboration with the physician and health care team 3. Address psychosocial, clinical, and financial barriers to discharge as identified in assessment in conjunction with the patient/family and health care team 4. Consult appropriate ancillary services (i.e.. PT/OT/ST, etc) as needed 5. Communicate with and update the patient/family, physician, and health care team regarding progress on the discharge plan 6. Identify discharge learning needs (meds, wound care, etc). 7. Arrange for needed discharge transportation as appropriate Outcome: Completed Note: Evaluation of progress towards goal: Patient updated on discharge and POC She verbalizes understanding and voices no concerns at this time. [facility] * Discharge Planning Note - Janina Sadlaña - 05/11/2025 11:11 AM EDT DISCHARGE PLANNING NOTE CRF and updates sent to [facility] ([facility] ; F[facility] ) * Discharge Planning Note - CARY Johnson - 05/11/2025 10:37 AM EDT Images from the original note were not included. Ongoing Assessment for Discharge Needs Reviewed discharge milestones and patient needs related to discharge plan. Current estimated discharge date of May 11, 2025 has been reviewed by treatment team. Sent message via [facility] to [facility] pt will have dopplers today & DC after resulted;tasked Transition Center to send updated medical note. Care Navigation will continue to follow patient progress to determine appropriate safe care transition needs. 11:00: [id number] completed. Tasked Transition Center to send CRF & [id number] to [facility]. Sticky note on chart with report/fax number & message to call SNF with transport time. Ongoing Assessment for Discharge Needs Flowsheet Row Most Recent Value Referral To Community Referrals / Resources Provided Financial Resources [referral made to [employer] to assist pt/ with Medicaid application] Services Requested Patient expects to be discharged to: [facility] Does the patient wish to have family/friend/caregiver involved in their discharge planning? Yes Does the patient plan to return home to a community setting? No, patient to discharge to facility-based provider. See Discharge Disposition [facility]charge Dis[facility] Yes PreCertification Authorization Number [id number] PreCertification Expiration Date 05/12/25 PreCertification Expiration Time 5996 Patient choice offered Yes List Provided Yes DC Planning Complete Discharge Milestones Yes * Plan of Care - Yodit Fox RN - 05/10/2025 10:46 PM EDT Problem: Pain Goal: Patient goal is pain score less than 4, able to rest, and participant in treatment plan as appropriate Description: INTERVENTIONS: 1. Encourage patient or legal arborist representative to report early pain and ask for pain medicine when needed 2. Assess pain using appropriate pain scale and include the scale used when documenting 3. Administer analgesics based on type and severity of pain and evaluate response within appropriate time frame 4. Implement non-pharmacological measures as appropriate and evaluate response 5. Consider cultural and social influences on pain and pain management 6. Notify LIP if interventions ineffective or patient reports new pain 7. Monitor vital signs including pulse ox, end-tidal CO2 based on pain intervention 8. Reassess pain per policy 9. Teach patient or legal arborist representative interventions for comforting Outcome: Progressing Note: Evaluation of progress towards goal: Pt rates pain 0, prn medication available. Problem: Safety Goal: Patient will be injury free during hospitalization Description: INTERVENTIONS: 1. Assess patient's risk for falls and implement fall prevention plan of care per policy 2. Provide and maintain a safe environment 3. Proper use of double Identifiers 4. Medication administration using the 5 rights 5. Hand hygiene 6. Specimens are labeled at the bedside 7. Instruct patient/ patient arborist representative about use of safety devices 8. Include patient/ patient arborist representative in decisions related to safety Outcome: Progressing Note: Evaluation of progress towards goal: Pt. Remains free from falls and injuries. Call light in reach, bed in lowest position. Problem: Infection Goal: Absence of infection during hospitalization Description: INTERVENTIONS 1. Assess and monitor for signs and symptoms of infection. 2. Monitor lab/diagnostic results. 3. Monitor all insertion sites i.e., indwelling lines, tubes and drains. 4. Monitor endotracheal (as able) and nasal secretions for changes in amount and color. 5. Administer medications as ordered. 6. Instruct and encourage patient and family to use good hand hygiene technique. 7. Identify and instruct patient/patient arborist representative in use of appropriate isolation precautionsfor identified infection/symptoms. 8. Provide and discuss with patient/patient arborist representative on educational MDRO sheet. 9. Encourage and monitor nutritional status daily and consult inbound call center representative if indicated. 10. Implement neutropenic guidelines as needed. Outcome: Progressing Note: Evaluation of progress towards goal: Problem: Knowledge Deficit Goal: Patient/patient arborist representative demonstrates understanding of disease process, treatment plan,medications, and discharge instructions Description: INTERVENTIONS 1. Complete learning assessment and assess knowledge base 2. Provide teaching at level of understanding 3. Provide teaching via preferred learning method(s) Outcome: Progressing Note: Evaluation of progress towards goal: Patient updated on POC along with medication. Patient voiced understanding. Problem: Discharge Planning Goal: Discharge to post-acute care, other facility, or home with appropriate resources Description: Patient's goal is: INTERVENTIONS 1. Conduct assessment to determine patient/family and health care team treatment goals, and need for post-acute services based on payer coverage, community resources, and patient preferences, and barriers to discharge 2. Coordinate with Social work, Care Navigation, and Utilization Review to arrange appropriate level of services according to patient's needs based on patient preference and payer coverage in collaboration with the physician and health care team 3. Address psychosocial, clinical, and financial barriers to discharge as identified in assessment in conjunction with the patient/family and health care team 4. Consult appropriate ancillary services (i.e.. PT/OT/ST, etc) as needed 5. Communicate with and update the patient/family, physician, and health care team regarding progress on the discharge plan 6. Identify discharge learning needs (meds, wound care, etc). 7. Arrange for needed discharge transportation as appropriate Outcome: Progressing Note: Evaluation of progress towards goal: [facility]id[facility] * Discharge Planning Note - Rocio Rivera - 05/10/2025 2:49 PM EDT DISCHARGE PLANNING NOTE Clinical updates including sent to. [facility] (P# ; F# ) * Discharge Planning Note - CARY Johnson - 05/10/2025 10:29 AM EDT Ongoing Assessment for Discharge Needs Reviewed discharge milestones and patient needs related to discharge plan. Current estimated discharge date of May 07, 2025 has been reviewed by treatment team. Update to ACADEMIC AFFAIRS MANAGER & RN to inform on Prior Auth approved for admission to : [facility] (P# ; F# ) Approval # [id number] Valid for Dates: 05/08/2025-05/12/2025 SW needs to complete 26059 prior to DC. Met with pt & informed on insurance acceptance. Sticky note on chart regarding DC with report/fax numbers. Ongoing Assessment for Discharge Needs Flowsheet Row Most Recent Value Referral To Community Referrals / Resources Provided Financial Resources [referral made to [employer] to assist pt/ with Medicaid application] Services Requested Patient expects to be discharged to: [facility] Does the patient wish to have family/friend/caregiver involved in their discharge planning? Yes Does the patient plan to return home to a community setting? No, patient to discharge to facility-based provider. See Discharge Disposition Discharge Disposition [facility] SNF Name [facility] SN[facility] SNF Accepted? Yes PreCertification Authorization Number [id number] PreCertification Expiration Date 05/12/25 PreCertification Expiration Time 4189 Patient choice offered Yes List Provided Yes DC Planning Complete Discharge Milestones Yes * Plan of Care - Trudy Amin RN - 05/10/2025 10:15 AM EDT Problem: Infection Goal: Absence of infection during hospitalization Description: INTERVENTIONS 1. Assess and monitor for signs and symptoms of infection. 2. Monitor lab/diagnostic results. 3. Monitor all insertion sites i.e., indwelling lines, tubes and drains. 4. Monitor endotracheal (as able) and nasal secretions for changes in amount and color. 5. Administer medications as ordered. 6. Instruct and encourage patient and family to use good hand hygiene technique. 7. Identify and instruct patient/patient arborist representative in use of appropriate isolation precautionsfor identified infection/symptoms. 8. Provide and discuss with patient/patient arborist representative on educational MDRO sheet. 9. Encourage and monitor nutritional status daily and consult inbound call center representative if indicated. 10. Implement neutropenic guidelines as needed. Outcome: Progressing Note: Evaluation of progress towards goal: Pt afebrile at this time, continue to monitor for signs infection Problem: Knowledge Deficit Goal: Patient/patient arborist representative demonstrates understanding of disease process, treatment plan,medications, and discharge instructions Description: INTERVENTIONS 1. Complete learning assessment and assess knowledge base 2. Provide teaching at level of understanding 3. Provide teaching via preferred learning method(s) Outcome: Progressing Note: Evaluation of progress towards goal: POC discussed with patient. Questions answered PRN. * PT/OT/HAT PRESSER - Janice Hayes, PT - 05/10/2025 10:11 AM EDT Physical Therapy Treatment Discharge Recommendations for Safe Patient Transition Discharge Recommendations: Post acute - moderate Post Acute Moderate Rehab Needs: Recommend moderate intensity rehab, Tolerate 1- 2 hrs of therapy 3-5 days/wk Current Impairments Informing Therapy Recommendation: Ambulation status/safety, Fall risk, ADL status, Endurance level Patient remained in chair at end of session. Call button and overbed table with reach. Nursing informed of status. 6 Clicks: Basic Mobility Turning from your back to your side while in a flat bed without using bed rails?: A lot Moving from lying on your back to sitting on side of flat bed without using bed rails?: A lot Moving to and from bed to a chair (including w/c)?: A little Standing up from a chair using your arms (e.g. w/c or bedside chair)?: A little To walk in hospital room?: A lot Climbing 3-5 steps with a railing?: A lot Scoring 6 Clicks: Basic Mobility Raw Score: 14 CMS G Code Modifier: CK Therapy Plan Need for skilled Physical Therapy to address deficits in functional mobility due to a status decline resulting from GI bleed. PT Treatment/Interventions: Functional transfer training, LE strengthening/ROM, Endurance training,Balance, Bed mobility, Gait training, Functional activities, Neuromuscular reeducation PT Frequency: 5-6days/week PT Duration: 10 days Assessment Patient Assessment Therapy Problem List: Abnormal posture, Decreased ADL status, Decreased balance, Decreased endurance, Decreased mobility, Decreased LE strength Patient Response to Treatment: Slow progress, medical status limitations Mood/Affect: Appropriate for circumstances Rehab Prognosis: Good, Fair, Guarded, With continued PT status post acute discharge Visit RN Communication: Yes Medical Record Reviewed: Yes PT Type of Visit: Treatment Precautions Activity: OK to treat per Trudy BRIONES Equipment: nonskid sock, IV Weight Bearing Status: Full Telemetry/Asic Design Engineer: No Oxygen Used: Room Air Subjective Physical Therapy Comments: Patient agreeable to seated exercises, but does not want to get up. Pain Assessment Pain Assessment: 0-10 Pain Score: 4 Pain Location: Hip, Buttocks Pain Orientation: Right Pain Intervention(s): Repositioned Response to Interventions: Pain unchanged Cognition Orientation Level: Oriented X4 Balance Sitting Balance: Static: Good Sitting Balance: Dynamic: Good, Fair Other: Patient performed seated exericses from edge of chair. Plan Physical Therapy Care Plan Physical Therapy Care Plan (Active) Template: PT - Physical Therapy Problem: Activity Tolerance Dates: Start: 05/04/25 Disciplines: PT Goal: Tolerate 30 minutes of activity WITH rest breaks Dates: Start: 05/04/25 Expected End: 05/13/25 Description: Goal Description: for increased ease of ADLs and household mobility upon return home. Disciplines: PT Outcomes Date/Time User Outcome 05/10/25 1010 Janice Hayes PT Not Progressing Goal Note filed on 05/10/25 1010 by Janice Hayes PT Evaluation of progress towards goal: Patient participated in LE exercises but refused additional mobility. Problem: Bed Mobility Dates: Start: 05/04/25 Disciplines: PT Goal: Patient will perform bed mobility with Moderate Assist Dates: Start: 05/04/25 Expected End: 05/13/25 Description: Goal Description: with use of hospital bed functions do to improving knowledge of log roll/reverse log roll technique to compensate for LE weakness. Disciplines: PT Outcomes Date/Time User Outcome 05/09/25 0800 Janice Hayes, PT Progressing 05/06/25 Janett Mosqueda, PT Progressing Goal Note filed on 05/09/25 0800 by Janice Hayes PT Evaluation of progress towards goal: CGA for rolling, MIN A supine to sit. Problem: Gait Dates: Start: 05/04/25 Disciplines: PT Goal: Patient will perform gait with Contact Guard Dates: Start: 05/04/25 Expected End: 05/13/25 Description: With_RW___,__20__feet Goal Description: to negotiate functional distances within hospital room. Disciplines: PT Outcomes Date/Time User Outcome 05/09/25 0800 Janice Hayes, PT Progressing 05/06/25 1037 Mone Mosqueda, PT Progressing Goal Note filed on 05/09/25 0800 by Janice Hayes PT Evaluation of progress towards goal: CGA for 8' with RW Problem: Transfers Dates: Start: 05/04/25 Disciplines: PT Goal: Patient will perform transfers with Contact Guard Dates: Start: 05/04/25 Expected End: 05/13/25 Description: Goal Description: and use of RW do to improving LE strength and balance. Disciplines: PT Outcomes Date/Time User Outcome 05/09/25 0800 Janice Hayes, PT Progressing 05/06/25 Janett Mosqueda, PT Progressing Goal Note filed on 05/09/25 08 by Janice Hayes PT Evaluation of progress towards goal: CGA sit to stand and stand to sit today Physical Therapy Care Plan (Resolved) There are no resolved problems. Principal Problem: Acute upper GI bleed Active Problems: Hypertension Type 2 diabetes mellitus with diabetic polyneuropathy, with long-term current use of insulin ([facility]) Vitamin B12 deficiency Hyperlipidemia Hyperkalemia Weakness Paroxysmal atrial fibrillation ([facility]) Iron deficiency anemia due to chronic blood loss Vaginal bleeding Left lower lobe pulmonary infiltrate Acute kidney injury superimposed on stage 3b chronic kidney disease ([facility]) * PT/OT/HAT PRESSER - EMILIE Rebolledo/Angela - 05/10/2025 10:04 AM EDT Occupational Therapy Treatment Discharge Recommendations for Safe Patient Transition Discharge Recommendations: Post acute - moderate Post Acute Moderate Rehab Needs: Recommend moderate intensity rehab (refer to OT eval.) 6 Clicks: Daily Activity Putting on and taking off regular lower body clothing?: Total Bathing (including washing, rinsing, drying)?: A lot Toileting, which includes using toilet, bedpan or urinal?: Total Putting on and taking off regular upper body clothing?: A little Taking care of personal grooming such as brushing teeth?: A little Eating meals?: A little Scoring Daily Activity Raw Score: 13 CMS G Code Modifier: CL Therapy Plan Need for skilled Occupational Therapy to address deficits in ADL independence and functional mobility due to a status decline resulting from acute upper GI bleed. OT Treatment/Interventions: Functional transfer training, ADL retraining, UE strengthening/ROM, Endurance training, Patient/family training, Equipment eval/education, Balance, Home management, Compensatory technique education, Functional activities OT Frequency: 4-5days/week OT Duration: 10 days Assessment Patient Assessment Therapy Problem List: Decreased ADL status, Decreased balance, Decreased endurance, Decreased safe judgement during ADL, Decreased LE strength Patient Response to Treatment: Progressing toward goals, Slow progress, medical status limitations,Slow progress, decreased activity tolerance Mood/Affect: Appropriate for circumstances Rehab Prognosis: Good, Fair, Guarded, With continued OT status post acute discharge Visit RN Communication: Yes Medical Record Reviewed: Yes OT Type of Visit: Treatment Precautions Activity: OK to treat per Trudy BRIONES Equipment: nonskid socks, gait belt, walker, IV Weight Bearing Status: Full Telemetry/Asic Design Engineer: No Oxygen Order : room air Other: mulitple bruises on face, fall risk Subjective Occupational Therapy Comments: I already used the bathroom, but I would love to get washed up. Pain Assessment Pain Assessment: 0-10 Pain Score: 4 Pain Location: Hip Pain Orientation: Right Pain Intervention(s): Repositioned Response to Interventions: Pain unchanged ADL / IADL Where Assessed: Chair, Edge of bed, Supine, bed Grooming Assistance: Standby assist Grooming Deficit: Wash/dry face, Wash/dry hands, Oral hygiene (seated) Bathing/Showering Assistance: Min assist Bathing/Showering Deficit: Right lower leg including foot, Left lower leg including foot UE Dressing Assistance: Min assist UE Dressing Deficit: Fasteners, Pull around back LE Dressing Assistance: Mod assist LE Dressing Deficit: Thread RLE into underwear, Thread LLE into underwear, Pull up over left hip, Pull up over right hip, Increased time to complete, Don/doff brief Footwear Assistance: Total assist Footwear Deficit: R sock, L sock Other: Pt supine upon arrival. Once seated in chair, pt acompleted ADL as stated above. assistance required for reaching distal regions of LE d/t body habitus and limited ROM. Education on adaptive equiptment for washing LE as well as LB dressing. Pt states her granddaughter helps her with dressingand bathing, although questionable historian. Pt remained in chair at end of session with chair alarm armed and call light within reach. Home Management - IADL Other: Pt supine upon arrival. Once seated in chair, pt acompleted ADL as stated above. assistance required for reaching distal regions of LE d/t body habitus and limited ROM. Education on adaptive equiptment for washing LE as well as LB dressing. Pt states her granddaughter helps her with dressingand bathing, although questionable historian. Pt remained in chair at end of session with chair alarm armed and call light within reach. Hearing / Speech / Vision Hearing: Within Functional Limits Speech: Within Functional Limits Current Vision: Wears glasses all the time Cognition Orientation Level: Oriented X4 Bed Mobility Rolling: Contact guard assist, Left Supine to Sit: Min assist Other: Use of bedrail, assist for bringing UB to midline. Transfers Sit to Stand: Contact guard assist Stand to Sit: Contact guard assist Bed to Chair: Contact guard assist Other: Use of walker for safety and stability. Balance Sitting Balance: Static: Fair, Good Sitting Balance: Dynamic: Fair Standing Balance: Static: Fair Standing Balance: Dynamic: Fair, Poor Other: Poor standing tolerance during sponge bathing/ dressing when managing brief over hips as well as perineal hygiene. Pt requiring ongoing cueing for upright, however pt continues to become more kypotic, eventually returning to seated in chair. Activity Tolerance Endurance: Tolerates >30 minutes activity with rest breaks Plan Occupational Therapy Care Plan Occupational Therapy Care Plan (Active) Template: OT - Occupational Therapy Problem: Activity Tolerance Dates: Start: 05/04/25 Disciplines: OT Goal: Tolerate > 30 minutes of activity WITH rest breaks Dates: Start: 05/04/25 Expected End: 05/13/25 Description: Goal Description:patient to engage in activities of choice with out changes in vitals in order to promote return to prior level of function Disciplines: OT Outcomes Date/Time User Outcome 05/06/25 1455 Senait Villasenor OTR/L Progressing Goal Note filed on 05/06/25 145 by Senait Villasenor OTR/Angela Evaluation of progress towards goal: fair Problem: Other (Customize) Dates: Start: 05/04/25 Disciplines: OT Goal: Improve Dates: Start: 05/04/25 Expected End: 05/13/25 Description: Goal Description:Patient to increase IND in ADls to min assist for lower body with useof AE inlcuding toileting tasks and transfers and SBA for upper body tasks in order to promote return to prior level of function Disciplines: OT Outcomes Date/Time User Outcome 05/10/25 1004 EMILIE Rebolledo/L Progressing 05/06/25 1455 Senait Villasenor OTR/Angela Progressing Goal Note filed on 05/10/25 100 by XIOMARA RebolledoA/L Evaluation of progress towards goal: refer to flowsheet for ADLs. Problem: Standing Balance Dates: Start: 05/04/25 Disciplines: OT Goal: Improve balance to good Dates: Start: 05/04/25 Expected End: 05/13/25 Description: Patient to increase standing balance to good in order to increase IND in ADLS and lower body dressing tasks Disciplines: OT Problem: Strength Dates: Start: 05/04/25 Disciplines: OT Goal: Improve strength Dates: Start: 05/04/25 Expected End: 05/13/25 Description: Of extremity/ location:pt to increase BUE strength to assist with increased independence in ADL and functional mobility tasks Disciplines: OT Occupational Therapy Care Plan (Resolved) There are no resolved problems. Principal Problem: Acute upper GI bleed Active Problems: Hypertension Type 2 diabetes mellitus with diabetic polyneuropathy, with long-term current use of insulin ([facility]) Vitamin B12 deficiency Hyperlipidemia Hyperkalemia Weakness Paroxysmal atrial fibrillation ([facility]) Iron deficiency anemia due to chronic blood loss Vaginal bleeding Left lower lobe pulmonary infiltrate Acute kidney injury superimposed on stage 3b chronic kidney disease ([facility]) Cosigned by Senait Villasenor OTR/L at 05/10/2025 10:33 AM EDT Associated attestation - Senait Villasenor OTR/L - 05/10/2025 10:33 AM EDT I have reviewed and agree with this note and education documentation for this visit. * Discharge Planning Note - Mai Reyna - 05/10/2025 7:24 AM EDT DISCHARGE PLANNING NOTE Prior Auth approved for admission to : [facility] (P# [phone] ; F# ) Approval # [id number] Valid for Dates: 05/08/2025-05/12/2025 * Plan of Care - Yodit Fox RN - 05/09/2025 7:09 PM EDT Problem: Pain Goal: Patient goal is pain score less than 4, able to rest, and participant in treatment plan as appropriate Description: INTERVENTIONS: 1. Encourage patient or legal arborist representative to report early pain and ask for pain medicine when needed 2. Assess pain using appropriate pain scale and include the scale used when documenting 3. Administer analgesics based on type and severity of pain and evaluate response within appropriate time frame 4. Implement non-pharmacological measures as appropriate and evaluate response 5. Consider cultural and social influences on pain and pain management 6. Notify LIP if interventions ineffective or patient reports new pain 7. Monitor vital signs including pulse ox, end-tidal CO2 based on pain intervention 8. Reassess pain per policy 9. Teach patient or legal arborist representative interventions for comforting Outcome: Progressing Note: Evaluation of progress towards goal: Pt rates pain 0, prn medication available. \ Problem: Safety Goal: Patient will be injury free during hospitalization Description: INTERVENTIONS: 1. Assess patient's risk for falls and implement fall prevention plan of care per policy 2. Provide and maintain a safe environment 3. Proper use of double Identifiers 4. Medication administration using the 5 rights 5. Hand hygiene 6. Specimens are labeled at the bedside 7. Instruct patient/ patient arborist representative about use of safety devices 8. Include patient/ patient arborist representative in decisions related to safety Outcome: Progressing Note: Evaluation of progress towards goal: Pt. Remains free from falls and injuries. Call light in reach, bed in lowest position. Problem: Infection Goal: Absence of infection during hospitalization Description: INTERVENTIONS 1. Assess and monitor for signs and symptoms of infection. 2. Monitor lab/diagnostic results. 3. Monitor all insertion sites i.e., indwelling lines, tubes and drains. 4. Monitor endotracheal (as able) and nasal secretions for changes in amount and color. 5. Administer medications as ordered. 6. Instruct and encourage patient and family to use good hand hygiene technique. 7. Identify and instruct patient/patient arborist representative in use of appropriate isolation precautionsfor identified infection/symptoms. 8. Provide and discuss with patient/patient arborist representative on educational MDRO sheet. 9. Encourage and monitor nutritional status daily and consult inbound call center representative if indicated. 10. Implement neutropenic guidelines as needed. Outcome: Progressing Note: Evaluation of progress towards goal: Problem: Knowledge Deficit Goal: Patient/patient arborist representative demonstrates understanding of disease process, treatment plan,medications, and discharge instructions Description: INTERVENTIONS 1. Complete learning assessment and assess knowledge base 2. Provide teaching at level of understanding 3. Provide teaching via preferred learning method(s) Outcome: Progressing Note: Evaluation of progress towards goal: Patient updated on POC along with medication. Patient voiced understanding. Problem: Discharge Planning Goal: Discharge to post-acute care, other facility, or home with appropriate resources Description: Patient's goal is: INTERVENTIONS 1. Conduct assessment to determine patient/family and health care team treatment goals, and need for post-acute services based on payer coverage, community resources, and patient preferences, and barriers to discharge 2. Coordinate with Social work, Care Navigation, and Utilization Review to arrange appropriate level of services according to patient's needs based on patient preference and payer coverage in collaboration with the physician and health care team 3. Address psychosocial, clinical, and financial barriers to discharge as identified in assessment in conjunction with the patient/family and health care team 4. Consult appropriate ancillary services (i.e.. PT/OT/ST, etc) as needed 5. Communicate with and update the patient/family, physician, and health care team regarding progress on the discharge plan 6. Identify discharge learning needs (meds, wound care, etc). 7. Arrange for needed discharge transportation as appropriate Outcome: Progressing Note: Evaluation of progress towards goal: Multidisciplinary teams working together with patient toachieve discharge goals. * Plan of Care - Caridad Mccormick RN - 05/09/2025 9:30 AM EDT Problem: Pain Goal: Patient goal is pain score less than 4, able to rest, and participant in treatment plan as appropriate Description: INTERVENTIONS: 1. Encourage patient or legal arborist representative to report early pain and ask for pain medicine when needed 2. Assess pain using appropriate pain scale and include the scale used when documenting 3. Administer analgesics based on type and severity of pain and evaluate response within appropriate time frame 4. Implement non-pharmacological measures as appropriate and evaluate response 5. Consider cultural and social influences on pain and pain management 6. Notify LIP if interventions ineffective or patient reports new pain 7. Monitor vital signs including pulse ox, end-tidal CO2 based on pain intervention 8. Reassess pain per policy 9. Teach patient or legal arborist representative interventions for comforting Outcome: Progressing Note: Evaluation of progress towards goal: Denied pain at present Problem: Safety Goal: Patient will be injury free during hospitalization Description: INTERVENTIONS: 1. Assess patient's risk for falls and implement fall prevention plan of care per policy 2. Provide and maintain a safe environment 3. Proper use of double Identifiers 4. Medication administration using the 5 rights 5. Hand hygiene 6. Specimens are labeled at the bedside 7. Instruct patient/ patient arborist representative about use of safety devices 8. Include patient/ patient arborist representative in decisions related to safety Outcome: Progressing Note: Evaluation of progress towards goal: PT is free of falls, hourly rounding is completed, area is kept clear. Problem: Infection Goal: Absence of infection during hospitalization Description: INTERVENTIONS 1. Assess and monitor for signs and symptoms of infection. 2. Monitor lab/diagnostic results. 3. Monitor all insertion sites i.e., indwelling lines, tubes and drains. 4. Monitor endotracheal (as able) and nasal secretions for changes in amount and color. 5. Administer medications as ordered. 6. Instruct and encourage patient and family to use good hand hygiene technique. 7. Identify and instruct patient/patient arborist representative in use of appropriate isolation precautionsfor identified infection/symptoms. 8. Provide and discuss with patient/patient arborist representative on educational MDRO sheet. 9. Encourage and monitor nutritional status daily and consult inbound call center representative if indicated. 10. Implement neutropenic guidelines as needed. Outcome: Progressing Note: Evaluation of progress towards goal: Pt assessed and monitored for signs and symptoms of infection, lab and diagnostic results monitored as needed, administer medications as needed. Problem: Knowledge Deficit Goal: Patient/patient arborist representative demonstrates understanding of disease process, treatment plan,medications, and discharge instructions Description: INTERVENTIONS 1. Complete learning assessment and assess knowledge base 2. Provide teaching at level of understanding 3. Provide teaching via preferred learning method(s) Outcome: Progressing Note: Evaluation of progress towards goal: Learning assessment and knowledge base assessed, teaching provided at an understandable level as needed. * PT/OT/HAT PRESSER - Janice Hayes, PT - 05/09/2025 8:02 AM EDT Physical Therapy Treatment Discharge Recommendations for Safe Patient Transition Discharge Recommendations: Post acute - moderate Post Acute Moderate Rehab Needs: Recommend moderate intensity rehab, Tolerate 1- 2 hrs of therapy 3-5 days/wk Current Impairments Informing Therapy Recommendation: Ambulation status/safety, Fall risk, ADL status, Endurance level Patient remained in chair at end of session. Overbed table and call button within reach. Chair alarm on. 6 Clicks: Basic Mobility Turning from your back to your side while in a flat bed without using bed rails?: A lot Moving from lying on your back to sitting on side of flat bed without using bed rails?: A lot Moving to and from bed to a chair (including w/c)?: A little Standing up from a chair using your arms (e.g. w/c or bedside chair)?: A little To walk in hospital room?: A lot Climbing 3-5 steps with a railing?: A lot Scoring 6 Clicks: Basic Mobility Raw Score: 14 CMS G Code Modifier: CK PT Treatment/Interventions: Functional transfer training, LE strengthening/ROM, Endurance training,Balance, Bed mobility, Gait training, Functional activities, Neuromuscular reeducation PT Frequency: 5-6days/week PT Duration: 10 days Assessment Patient Assessment Therapy Problem List: Decreased ADL status, Decreased balance, Decreased endurance, Decreased safe judgement during ADL, Decreased LE strength Patient Response to Treatment: Progressing toward goals, Slow progress, medical status limitations,Slow progress, decreased activity tolerance Mood/Affect: Appropriate for circumstances Rehab Prognosis: Good, Guarded, With continued PT status post acute discharge Visit RN Communication: Yes Medical Record Reviewed: Yes PT Type of Visit: Treatment Precautions Activity: OK to treat per Caridad BRIONES Equipment: nonskid socks, gait belt, walker, IV, catheter Weight Bearing Status: Full Telemetry/Asic Design Engineer: No Oxygen Used: Room Air Pain Assessment Pain Assessment: 0-10 Pain Score: 2 Observed Behavior: Calm Pain Location: Buttocks Pain Orientation: Right, Left Pain Intervention(s): Repositioned, Emotional support Response to Interventions: Pain improved Pain 2 Observed Behavior: Calm Cognition Orientation Level: Oriented X4 05/09/25 0745 LE Supine LE supine exercises performed? Yes Ankle pumps x Gluteal sets x Quad sets x Supine heel slides x Hip abduction x Leg raises x Other Patient completed exericses to increase sterngth for increased ease with transfers and gait. Repetitions 10x B LE's LE Seated LE seated exercises performed? Yes Long arc quads x Seated marching x Other Patient completed exericses to increase sterngth for increased ease with transfers and gait. Repetitions 10x ea B KIN's Bed Mobility Rolling: Contact guard assist, Left Supine to Sit: Min assist, Left (Able to move LE's out of bed; difficulty with trunk.) Other: Patient remained in chair at end of session. Transfers Sit to Stand: Contact guard assist Stand to Sit: Contact guard assist Other: VC's for hand placement with both transfers. Gait Base of Support: Wide Pattern: Decreased brady, R Decreased heel strike, L Decreased heel strike, R Decreased foot clearance, L Decreased foot clearance, Forward trunk Gait Assistance: Contact guard assist Assistive Device: Rolling walker Gait Distance: 8' Limiting Factors to Gait: Fatigue, Weakness Other: Patient eager to sit back down; too fatigued to remain standing/ambulating Balance Sitting Balance: Static: Fair, Good Sitting Balance: Dynamic: Fair Standing Balance: Static: Fair Standing Balance: Dynamic: Fair, Poor Other: Patient requires UE support for safe sitting; she states that's due to fatigue. UE support with use of walker plus physical assistance for standing. Activity Tolerance Endurance: Tolerates <30 minutes activity WITHOUT vital sign changes Plan Physical Therapy Care Plan Physical Therapy Care Plan (Active) Template: PT - Physical Therapy Problem: Activity Tolerance Dates: Start: 05/04/25 Disciplines: PT Goal: Tolerate 30 minutes of activity WITH rest breaks Dates: Start: 05/04/25 Expected End: 05/13/25 Description: Goal Description: for increased ease of ADLs and household mobility upon return home. Disciplines: PT Problem: Bed Mobility Dates: Start: 05/04/25 Disciplines: PT Goal: Patient will perform bed mobility with Moderate Assist Dates: Start: 05/04/25 Expected End: 05/13/25 Description: Goal Description: with use of hospital bed functions do to improving knowledge of log roll/reverse log roll technique to compensate for LE weakness. Disciplines: PT Outcomes Date/Time User Outcome 05/09/25 0800 Janice Hayes, PT Progressing 05/06/25 1037 Mone Mosqueda, PT Progressing Goal Note filed on 05/09/25 0800 by Janice Hayes, PT Evaluation of progress towards goal: CGA for rolling, MIN A supine to sit. Problem: Gait Dates: Start: 05/04/25 Disciplines: PT Goal: Patient will perform gait with Contact Guard Dates: Start: 05/04/25 Expected End: 05/13/25 Description: With_RW___,__20__feet Goal Description: to negotiate functional distances within hospital room. Disciplines: PT Outcomes Date/Time User Outcome 05/09/25799 Janice Hayes, PT Progressing 05/06/25 Janett Mosqueda, PT Progressing Goal Note filed on 05/09/25799 by Janice Hayes PT Evaluation of progress towards goal: CGA for 8' with RW Problem: Transfers Dates: Start: 05/04/25 Disciplines: PT Goal: Patient will perform transfers with Contact Guard Dates: Start: 05/04/25 Expected End: 05/13/25 Description: Goal Description: and use of RW do to improving LE strength and balance. Disciplines: PT Outcomes Date/Time User Outcome 05/09/25799 Janice Hayes, PT Progressing 05/06/25 1037 Mone Mosqueda, PT Progressing Goal Note filed on 05/09/25799 by Janice Hayes PT Evaluation of progress towards goal: CGA sit to stand and stand to sit today Physical Therapy Care Plan (Resolved) There are no resolved problems. Principal Problem: Acute upper GI bleed Active Problems: Hypertension Type 2 diabetes mellitus with diabetic polyneuropathy, with long-term current use of insulin ([facility]) Vitamin B12 deficiency Hyperlipidemia Hyperkalemia Weakness Paroxysmal atrial fibrillation ([facility]) Iron deficiency anemia due to chronic blood loss Vaginal bleeding Left lower lobe pulmonary infiltrate Acute kidney injury superimposed on stage 3b chronic kidney disease ([facility]) * Plan of Care - Yodit Fox RN - 05/08/2025 8:14 PM EDT Problem: Pain Goal: Patient goal is pain score less than 4, able to rest, and participant in treatment plan as appropriate Description: INTERVENTIONS: 1. Encourage patient or legal arborist representative to report early pain and ask for pain medicine when needed 2. Assess pain using appropriate pain scale and include the scale used when documenting 3. Administer analgesics based on type and severity of pain and evaluate response within appropriate time frame 4. Implement non-pharmacological measures as appropriate and evaluate response 5. Consider cultural and social influences on pain and pain management 6. Notify LIP if interventions ineffective or patient reports new pain 7. Monitor vital signs including pulse ox, end-tidal CO2 based on pain intervention 8. Reassess pain per policy 9. Teach patient or legal arborist representative interventions for comforting Outcome: Progressing Note: Evaluation of progress towards goal: Pt rates pain 0, prn medication available. Problem: Safety Goal: Patient will be injury free during hospitalization Description: INTERVENTIONS: 1. Assess patient's risk for falls and implement fall prevention plan of care per policy 2. Provide and maintain a safe environment 3. Proper use of double Identifiers 4. Medication administration using the 5 rights 5. Hand hygiene 6. Specimens are labeled at the bedside 7. Instruct patient/ patient arborist representative about use of safety devices 8. Include patient/ patient arborist representative in decisions related to safety Outcome: Progressing Note: Evaluation of progress towards goal: Pt. Remains free from falls and injuries. Call light in reach, bed in lowest position. Problem: Infection Goal: Absence of infection during hospitalization Description: INTERVENTIONS 1. Assess and monitor for signs and symptoms of infection. 2. Monitor lab/diagnostic results. 3. Monitor all insertion sites i.e., indwelling lines, tubes and drains. 4. Monitor endotracheal (as able) and nasal secretions for changes in amount and color. 5. Administer medications as ordered. 6. Instruct and encourage patient and family to use good hand hygiene technique. 7. Identify and instruct patient/patient arborist representative in use of appropriate isolation precautionsfor identified infection/symptoms. 8. Provide and discuss with patient/patient arborist representative on educational MDRO sheet. 9. Encourage and monitor nutritional status daily and consult inbound call center representative if indicated. 10. Implement neutropenic guidelines as needed. Outcome: Progressing Note: Evaluation of progress towards goal: Problem: Knowledge Deficit Goal: Patient/patient arborist representative demonstrates understanding of disease process, treatment plan,medications, and discharge instructions Description: INTERVENTIONS 1. Complete learning assessment and assess knowledge base 2. Provide teaching at level of understanding 3. Provide teaching via preferred learning method(s) Outcome: Progressing Note: Evaluation of progress towards goal: Patient updated on POC along with medication. Patient voiced understanding. Problem: Discharge Planning Goal: Discharge to post-acute care, other facility, or home with appropriate resources Description: Patient's goal is: INTERVENTIONS 1. Conduct assessment to determine patient/family and health care team treatment goals, and need for post-acute services based on payer coverage, community resources, and patient preferences, and barriers to discharge 2. Coordinate with Social work, Care Navigation, and Utilization Review to arrange appropriate level of services according to patient's needs based on patient preference and payer coverage in collaboration with the physician and health care team 3. Address psychosocial, clinical, and financial barriers to discharge as identified in assessment in conjunction with the patient/family and health care team 4. Consult appropriate ancillary services (i.e.. PT/OT/ST, etc) as needed 5. Communicate with and update the patient/family, physician, and health care team regarding progress on the discharge plan 6. Identify discharge learning needs (meds, wound care, etc). 7. Arrange for needed discharge transportation as appropriate Outcome: Progressing Note: Evaluation of progress towards goal: Multidisciplinary teams working together with patient toachieve discharge goals. * Plan of Care - Caridad Mccormick RN - 05/08/2025 8:45 AM EDT Problem: Pain Goal: Patient goal is pain score less than 4, able to rest, and participant in treatment plan as appropriate Description: INTERVENTIONS: 1. Encourage patient or legal arborist representative to report early pain and ask for pain medicine when needed 2. Assess pain using appropriate pain scale and include the scale used when documenting 3. Administer analgesics based on type and severity of pain and evaluate response within appropriate time frame 4. Implement non-pharmacological measures as appropriate and evaluate response 5. Consider cultural and social influences on pain and pain management 6. Notify LIP if interventions ineffective or patient reports new pain 7. Monitor vital signs including pulse ox, end-tidal CO2 based on pain intervention 8. Reassess pain per policy 9. Teach patient or legal arborist representative interventions for comforting Outcome: Progressing Note: Evaluation of progress towards goal: Pain assessed and treated accordingly. Problem: Safety Goal: Patient will be injury free during hospitalization Description: INTERVENTIONS: 1. Assess patient's risk for falls and implement fall prevention plan of care per policy 2. Provide and maintain a safe environment 3. Proper use of double Identifiers 4. Medication administration using the 5 rights 5. Hand hygiene 6. Specimens are labeled at the bedside 7. Instruct patient/ patient arborist representative about use of safety devices 8. Include patient/ patient arborist representative in decisions related to safety Outcome: Progressing Note: Evaluation of progress towards goal: PT is free of falls, hourly rounding is completed, area is kept clear. Problem: Infection Goal: Absence of infection during hospitalization Description: INTERVENTIONS 1. Assess and monitor for signs and symptoms of infection. 2. Monitor lab/diagnostic results. 3. Monitor all insertion sites i.e., indwelling lines, tubes and drains. 4. Monitor endotracheal (as able) and nasal secretions for changes in amount and color. 5. Administer medications as ordered. 6. Instruct and encourage patient and family to use good hand hygiene technique. 7. Identify and instruct patient/patient arborist representative in use of appropriate isolation precautionsfor identified infection/symptoms. 8. Provide and discuss with patient/patient arborist representative on educational MDRO sheet. 9. Encourage and monitor nutritional status daily and consult inbound call center representative if indicated. 10. Implement neutropenic guidelines as needed. Outcome: Progressing Note: Evaluation of progress towards goal: Pt assessed and monitored for signs and symptoms of infection, lab and diagnostic results monitored as needed, administer medications as needed. Problem: Knowledge Deficit Goal: Patient/patient arborist representative demonstrates understanding of disease process, treatment plan,medications, and discharge instructions Description: INTERVENTIONS 1. Complete learning assessment and assess knowledge base 2. Provide teaching at level of understanding 3. Provide teaching via preferred learning method(s) Outcome: Progressing Note: Evaluation of progress towards goal: Learning assessment and knowledge base assessed, teaching provided at an understandable level as needed. Problem: Discharge Planning Goal: Discharge to post-acute care, other facility, or home with appropriate resources Description: Patient's goal is: INTERVENTIONS 1. Conduct assessment to determine patient/family and health care team treatment goals, and need for post-acute services based on payer coverage, community resources, and patient preferences, and barriers to discharge 2. Coordinate with Social work, Care Navigation, and Utilization Review to arrange appropriate level of services according to patient's needs based on patient preference and payer coverage in collaboration with the physician and health care team 3. Address psychosocial, clinical, and financial barriers to discharge as identified in assessment in conjunction with the patient/family and health care team 4. Consult appropriate ancillary services (i.e.. PT/OT/ST, etc) as needed 5. Communicate with and update the patient/family, physician, and health care team regarding progress on the discharge plan 6. Identify discharge learning needs (meds, wound care, etc). 7. Arrange for needed discharge transportation as appropriate Outcome: Progressing Note: Evaluation of progress towards goal: Pt discharge initiated with attending provider, Pt/Family communicated with and updated regarding process on discharge as needed. Problem: Glucose Imbalance Goal: Clinical indication of glucose balance is achieved Description: Patient's goal is: INTERVENTIONS 1. Monitor blood glucose levels as ordered 2. Administer medications as ordered 3. Notify physician of ineffective treatment plan Outcome: Progressing Note: Evaluation of progress towards goal: Glucose to be monitored and treated accordingly * Plan of Care - Yodit Fox RN - 05/07/2025 8:49 PM EDT Problem: Pain Goal: Patient goal is pain score less than 4, able to rest, and participant in treatment plan as appropriate Description: INTERVENTIONS: 1. Encourage patient or legal arborist representative to report early pain and ask for pain medicine when needed 2. Assess pain using appropriate pain scale and include the scale used when documenting 3. Administer analgesics based on type and severity of pain and evaluate response within appropriate time frame 4. Implement non-pharmacological measures as appropriate and evaluate response 5. Consider cultural and social influences on pain and pain management 6. Notify LIP if interventions ineffective or patient reports new pain 7. Monitor vital signs including pulse ox, end-tidal CO2 based on pain intervention 8. Reassess pain per policy 9. Teach patient or legal arborist representative interventions for comforting Outcome: Progressing Note: Evaluation of progress towards goal: Pt rates pain 2, prn medication available. Problem: Safety Goal: Patient will be injury free during hospitalization Description: INTERVENTIONS: 1. Assess patient's risk for falls and implement fall prevention plan of care per policy 2. Provide and maintain a safe environment 3. Proper use of double Identifiers 4. Medication administration using the 5 rights 5. Hand hygiene 6. Specimens are labeled at the bedside 7. Instruct patient/ patient arborist representative about use of safety devices 8. Include patient/ patient arborist representative in decisions related to safety Outcome: Progressing Note: Evaluation of progress towards goal: Pt. Remains free from falls and injuries. Call light in reach, bed in lowest position. Problem: Infection Goal: Absence of infection during hospitalization Description: INTERVENTIONS 1. Assess and monitor for signs and symptoms of infection. 2. Monitor lab/diagnostic results. 3. Monitor all insertion sites i.e., indwelling lines, tubes and drains. 4. Monitor endotracheal (as able) and nasal secretions for changes in amount and color. 5. Administer medications as ordered. 6. Instruct and encourage patient and family to use good hand hygiene technique. 7. Identify and instruct patient/patient arborist representative in use of appropriate isolation precautionsfor identified infection/symptoms. 8. Provide and discuss with patient/patient arborist representative on educational MDRO sheet. 9. Encourage and monitor nutritional status daily and consult inbound call center representative if indicated. 10. Implement neutropenic guidelines as needed. Outcome: Progressing Note: Evaluation of progress towards goal: Problem: Knowledge Deficit Goal: Patient/patient arborist representative demonstrates understanding of disease process, treatment plan,medications, and discharge instructions Description: INTERVENTIONS 1. Complete learning assessment and assess knowledge base 2. Provide teaching at level of understanding 3. Provide teaching via preferred learning method(s) Outcome: Progressing Note: Evaluation of progress towards goal: Patient updated on POC along with medication. Patient voiced understanding. Problem: Discharge Planning Goal: Discharge to post-acute care, other facility, or home with appropriate resources Description: Patient's goal is: INTERVENTIONS 1. Conduct assessment to determine patient/family and health care team treatment goals, and need for post-acute services based on payer coverage, community resources, and patient preferences, and barriers to discharge 2. Coordinate with Social work, Care Navigation, and Utilization Review to arrange appropriate level of services according to patient's needs based on patient preference and payer coverage in collaboration with the physician and health care team 3. Address psychosocial, clinical, and financial barriers to discharge as identified in assessment in conjunction with the patient/family and health care team 4. Consult appropriate ancillary services (i.e.. PT/OT/ST, etc) as needed 5. Communicate with and update the patient/family, physician, and health care team regarding progress on the discharge plan 6. Identify discharge learning needs (meds, wound care, etc). 7. Arrange for needed discharge transportation as appropriate Outcome: Progressing Note: Evaluation of progress towards goal: Multidisciplinary teams working together with patient toachieve discharge goals. * Plan of Care - Aline Frazier RPH - 05/07/2025 2:52 PM EDT Problem: Medication Description: If medication is necessary, use low-risk medication that does not interfere with what matters to the older adult patient, mobility, or mentation across settings of care. Goal: Patient will be screened for high-risk medications once per stay Description: Interventions: 1. Pharmacist to perform medication review to screen for high-risk medications 2. Pharmacist to identify high-risk medications in the Plan of Care note 3. Pharmacist to make recommendations for follow-up in the Plan of Care note, if warranted Outcome: Completed Note: Medications individually and in combination may interfere with What Matters, Mentation, and safe Mobility because of the increased risk of confusion, delirium, unsteadiness and falls. Profile review indicates this patients has active orders for pregabalin. Chart review also shows changes in re nal function. Medication continued from EXAMINER RATING CLERK, dosed per tolerance and renal function. Continue current therapy. * PT/OT/HAT PRESSER - Lupe Wakefield PT - 05/07/2025 10:20 AM EDT Physical Therapy PT Type of Visit: Medical deferral Reason For Medical Deferral: Off unit Off Unit: Testing PT will continue to follow this patient and re-attempt treatment session as able. * Discharge Planning Note - Mai Reyna - 05/07/2025 10:05 AM EDT DISCHARGE PLANNING NOTE Prior auth submitted to: [employer] Via: [employer] On behalf of : [facility] (P# ; F# ) Ref # [id number] * Discharge Planning Note - Yudelka Morales RN - 05/07/2025 8:38 AM EDT DISCHARGE PLANNING NOTE Irma Caceres Per chart review: Patient is scheduled for colonoscopy today for a GI bleed and a bx from EGD is pending results. Per hospitalist note of 05/06/25 discharge is anticipated in 1-3 days today. PT recommends: Score = 15; SNF OT recommends: Score = 13; SNF Discharge Plan: care home care at [facility] (accepted). Insurance authorization will need submitted once d/c date is narrowed closer. Plan of Care: [facility] - Yudelka Morales RN 05/07/25 8:38 AM Per DTR discharge is anticipated today or tomorrow. Tasked Pre-Certification Team to begin insurance authorization for patient to go to [facility]. Discharge Plan: care home care at [facility] (accepted) and pending insurance authorization. Plan of Care: [facility] - Yudelka Morales RN 05/07/25 9:52 AM Preadmission Screening & Resident Review (PASSR) PASSR completed via the [employer] ([employer] Electronic Notification System) ODM 7000 (short form) completed and submitted? yes Is a Level II Evaluation required? no SNF notified on [facility] of PASSR completion. yes - Yudelka Morales RN 05/07/25 3:31 PM * Plan of Care - Idania Rider RN - 05/07/2025 8:00 AM EDT Problem: Pain Goal: Patient goal is pain score less than 4, able to rest, and participant in treatment plan as appropriate Description: INTERVENTIONS: 1. Encourage patient or legal arborist representative to report early pain and ask for pain medicine when needed 2. Assess pain using appropriate pain scale and include the scale used when documenting 3. Administer analgesics based on type and severity of pain and evaluate response within appropriate time frame 4. Implement non-pharmacological measures as appropriate and evaluate response 5. Consider cultural and social influences on pain and pain management 6. Notify LIP if interventions ineffective or patient reports new pain 7. Monitor vital signs including pulse ox, end-tidal CO2 based on pain intervention 8. Reassess pain per policy 9. Teach patient or legal arborist representative interventions for comforting Outcome: Progressing Note: Evaluation of progress towards goal: Pt encouraged to report early pain, non pharmacological measures implemented as needed. Pt able to report pain according to 0/10 pain scale. Medicating patient for pain per orders. Problem: Safety Goal: Patient will be injury free during hospitalization Description: INTERVENTIONS: 1. Assess patient's risk for falls and implement fall prevention plan of care per policy 2. Provide and maintain a safe environment 3. Proper use of double Identifiers 4. Medication administration using the 5 rights 5. Hand hygiene 6. Specimens are labeled at the bedside 7. Instruct patient/ patient arborist representative about use of safety devices 8. Include patient/ patient arborist representative in decisions related to safety Outcome: Progressing Note: Evaluation of progress towards goal: Pt's risk for falls assessed and fall prevention implemented as needed, safe environment provided and maintained, hand hygiene completed. * Plan of Care - Cathy Ortiz RN - 05/07/2025 3:12 AM EDT Problem: Pain Goal: Patient goal is pain score less than 4, able to rest, and participant in treatment plan as appropriate Description: INTERVENTIONS: 1. Encourage patient or legal arborist representative to report early pain and ask for pain medicine when needed 2. Assess pain using appropriate pain scale and include the scale used when documenting 3. Administer analgesics based on type and severity of pain and evaluate response within appropriate time frame 4. Implement non-pharmacological measures as appropriate and evaluate response 5. Consider cultural and social influences on pain and pain management 6. Notify LIP if interventions ineffective or patient reports new pain 7. Monitor vital signs including pulse ox, end-tidal CO2 based on pain intervention 8. Reassess pain per policy 9. Teach patient or legal arborist representative interventions for comforting Outcome: Progressing Note: Evaluation of progress towards goal: no c/o pain voiced. NO nonverbal s/sx pain noted. Problem: Safety Goal: Patient will be injury free during hospitalization Description: INTERVENTIONS: 1. Assess patient's risk for falls and implement fall prevention plan of care per policy 2. Provide and maintain a safe environment 3. Proper use of double Identifiers 4. Medication administration using the 5 rights 5. Hand hygiene 6. Specimens are labeled at the bedside 7. Instruct patient/ patient arborist representative about use of safety devices 8. Include patient/ patient arborist representative in decisions related to safety Outcome: Progressing Note: Evaluation of progress towards goal: Remains free from injury. Safety precautions maintained. Problem: Knowledge Deficit Goal: Patient/patient arborist representative demonstrates understanding of disease process, treatment plan,medications, and discharge instructions Description: INTERVENTIONS 1. Complete learning assessment and assess knowledge base 2. Provide teaching at level of understanding 3. Provide teaching via preferred learning method(s) Outcome: Progressing Note: Evaluation of progress towards goal: Plan of care reviewed, no questions/concerns voiced. Allinterventions explained prior to initiating. * PT/OT/HAT PRESSER - Senait Villasenor OTR/Angela - 05/06/2025 2:56 PM EDT Occupational Therapy Treatment Discharge Recommendations for Safe Patient Transition Discharge Recommendations: Post acute - moderate Post Acute Moderate Rehab Needs: Recommend moderate intensity rehab, Tolerate 1- 2 hrs of therapy 3-5 days/wk, Subacute or chronic functional impairment Current Impairments Informing Therapy Recommendation: Ambulation status/safety, Cognition, Fall risk, ADL status, Endurance level Vacuum Conditioner Operator Support for-: Mobility Deficits, ADL Deficits, Cognitive Impairments 6 Clicks: Daily Activity Putting on and taking off regular lower body clothing?: Total Bathing (including washing, rinsing, drying)?: A lot Toileting, which includes using toilet, bedpan or urinal?: Total Putting on and taking off regular upper body clothing?: A little Taking care of personal grooming such as brushing teeth?: A little Eating meals?: A little Scoring Daily Activity Raw Score: 13 CMS G Code Modifier: CL Therapy Plan/HPI/occupational profile throughout eval Need for skilled Occupational Therapy to address deficits in ADL independence and functional mobility due to a status decline resulting from acute upper GI bleed. OT Treatment/Interventions: Functional transfer training, ADL retraining, UE strengthening/ROM, Endurance training, Patient/family training, Equipment eval/education, Balance, Home management, Compensatory technique education, Functional activities OT Frequency: 4-5days/week OT Duration: 10 days Assessment Patient Assessment Therapy Problem List: Decreased ADL status, Decreased balance, Decreased endurance, Decreased fine motor, Decreased gross motor, Decreased high-level ADLs, Decreased mobility, Decreased safe judgement during ADL, Decreased self- care trans, Decreased UE strength, Decreased LE strength Patient Response to Treatment: Progressing toward goals, Slow progress, decreased activity tolerance Mood/Affect: Appropriate for circumstances Rehab Prognosis: Good, Guarded, With continued OT status post acute discharge Visit RN Communication: Yes Medical Record Reviewed: Yes OT Type of Visit: Treatment Precautions Activity: early mobility pass, OK to eval per Deonna BRIONES Equipment: nonskid socks, gait belt, walker, IV, catheter Telemetry/Asic Design Engineer: No Oxygen Order : room air Other: mulitple bruises on face, fall risk Subjective Occupational Therapy Comments: I am ready to eat something Pain Assessment Pain Assessment: No/denies pain ADL / IADL Grooming Assistance: (SBA to comb hair while seated on edge of bed, assist needed for denture care at sink, pt rinses mouth out with mouth wash) Bathing/Showering Assistance: Mod assist Bathing/Showering Deficit: Buttocks, Perineal area, Right upper leg, Left upper leg, Right lower leg including foot, Left lower leg including foot (completes upper body while seated on edge of bed) UE Dressing Assistance: Min assist (to start to don over head night gown) Footwear Assistance: Total assist Footwear Deficit: R sock, L sock Other: spouse and daugther in law at bedside, pt provides verbal consent for them to be present during treatment session. pt ed on role and goals of OT after real estate underwriter introduced self. pt completes ADL while seated edge of bed Home Management - IADL Other: spouse and daugther in law at bedside, pt provides verbal consent for them to be present during treatment session. pt ed on role and goals of OT after real estate underwriter introduced self. pt completes ADL while seated edge of bed Hearing / Speech / Vision Hearing: Within Functional Limits Speech: Within Functional Limits Bed Mobility Supine to Sit: Mod assist (head of bed elevated and use of bed rail) Sit to Supine: Mod assist (for bilteral LE management, returned to supine at end of session per pt request, declines to sit in chair) Balance Sitting Balance: Static: Good Sitting Balance: Dynamic: Fair Activity Tolerance Endurance: Tolerates 30 minutes activity with rest breaks Plan Occupational Therapy Care Plan Occupational Therapy Care Plan (Active) Template: OT - Occupational Therapy Problem: Activity Tolerance Dates: Start: 05/04/25 Disciplines: OT Goal: Tolerate > 30 minutes of activity WITH rest breaks Dates: Start: 05/04/25 Expected End: 05/13/25 Description: Goal Description:patient to engage in activities of choice with out changes in vitals in order to promote return to prior level of function Disciplines: OT Outcomes Date/Time User Outcome 05/06/251454 Senait Villasenor OTR/L Progressing Goal Note filed on 05/06/251454 by Senait Villasenor OTR/Angela Evaluation of progress towards goal: fair Problem: Other (Customize) Dates: Start: 05/04/25 Disciplines: OT Goal: Improve Dates: Start: 05/04/25 Expected End: 05/13/25 Description: Goal Description:Patient to increase IND in ADls to min assist for lower body with useof AE inlcuding toileting tasks and transfers and SBA for upper body tasks in order to promote return to prior level of function Disciplines: OT Outcomes Date/Time User Outcome 05/06/251454 Senait Villasenor OTR/Angela Progressing Goal Note filed on 05/06/251454 by Senait Villasenor OTR/Angela Evaluation of progress towards goal: refer to flow sheet Problem: Standing Balance Dates: Start: 05/04/25 Disciplines: OT Goal: Improve balance to good Dates: Start: 05/04/25 Expected End: 05/13/25 Description: Patient to increase standing balance to good in order to increase IND in ADLS and lower body dressing tasks Disciplines: OT Problem: Strength Dates: Start: 05/04/25 Disciplines: OT Goal: Improve strength Dates: Start: 05/04/25 Expected End: 05/13/25 Description: Of extremity/ location:pt to increase BUE strength to assist with increased independence in ADL and functional mobility tasks Disciplines: OT Occupational Therapy Care Plan (Resolved) There are no resolved problems. Principal Problem: Acute upper GI bleed Active Problems: Hypertension Type 2 diabetes mellitus with diabetic polyneuropathy, with long-term current use of insulin ([facility]) Vitamin B12 deficiency Hyperlipidemia Hyperkalemia Weakness Paroxysmal atrial fibrillation ([facility]) Iron deficiency anemia due to chronic blood loss Vaginal bleeding Left lower lobe pulmonary infiltrate Acute kidney injury superimposed on stage 3b chronic kidney disease ([facility]) * PT/OT/HAT PRESSER - Mone Mosqueda, PT - 05/06/2025 10:39 AM EDT Physical Therapy Treatment Discharge Recommendations for Safe Patient Transition Discharge Recommendations: Post acute - moderate Post Acute Moderate Rehab Needs: Tolerate 1-2 hrs of therapy 3-5 days/wk (to further improve overall functional mobility to be able to return home safely with more independence.) 6 Clicks: Basic Mobility Turning from your back to your side while in a flat bed without using bed rails?: A lot Moving from lying on your back to sitting on side of flat bed without using bed rails?: A lot Moving to and from bed to a chair (including w/c)?: A little Standing up from a chair using your arms (e.g. w/c or bedside chair)?: A little To walk in hospital room?: A little Climbing 3-5 steps with a railing?: A lot Scoring 6 Clicks: Basic Mobility Raw Score: 15 [facility] G Code Modifier: CK Therapy Plan Need for skilled Physical Therapy to address deficits in functional mobility due to a status decline resulting from recent medical condition. Pt resting in bed upon arrival and agreed to PT. Pt performed exercises in supine position. Pt withMod A for supine to sit with use of bed rail and head of bed elevated. Pt was able to stand and able to ambulate 5 ft with rolling walker and stood 1-2 minutes. Fatigues quickly and LEs don't feel like they will hold her pt pt report. Pt with mod/max A for sit to supine. Pt back resting in bed withfamily present. Call light within reach and all needs met upon departure. RN aware of session. 05/06/25 1003 LE Supine LE supine exercises performed? Yes Ankle pumps 10x Gluteal sets 10x Quad sets 10x Supine heel slides 7x Other to improve mobility and strength for ease of transfers and gait Assessment Patient Assessment Patient Response to Treatment: Progressing toward goals Mood/Affect: Appropriate for circumstances Rehab Prognosis: Good, Fair, With continued PT status post acute discharge Visit RN Communication: Yes Medical Record Reviewed: Yes PT Type of Visit: Treatment Precautions Activity: as tolerated Equipment: nonskid socks, gait belt, walker, IV, catheter Oxygen Order : room air Subjective Physical Therapy Comments: Pt states she is waiting to get her colonoscopy today. Tired. Pain Assessment Pain Assessment: 0-10 Pain Score: 4 Pain Location: Buttocks Hearing / Speech / Vision Hearing: Within Functional Limits Speech: Within Functional Limits Cognition Orientation Level: Oriented X4 Bed Mobility Supine to Sit: Mod assist Sit to Supine: Mod assist Other: with use of bed rails and head of bed elevated Transfers Sit to Stand: Min assist, Verbal cues Stand to Sit: Min assist, Verbal cues Bed to Chair: Min assist, Verbal cues Other: cues for hand placement with transfers Gait Gait Assistance: Min assist Assistive Device: Rolling walker Gait Distance: 5 feet Limiting Factors to Gait: Fatigue, Weakness Other: pt with increased fatigue the longer she stood. had pt stand 1-2 minutes per her tolerance before she layed back in bed. Balance Sitting Balance: Static: Good Sitting Balance: Dynamic: Fair Standing Balance: Static: Fair Standing Balance: Dynamic: Fair, Poor Other: with use of walker for standing. Activity Tolerance Endurance: Tolerates <30 minutes activity WITHOUT vital sign changes Plan Physical Therapy Care Plan Physical Therapy Care Plan (Active) Template: PT - Physical Therapy Problem: Activity Tolerance Dates: Start: 05/04/25 Disciplines: PT Goal: Tolerate 30 minutes of activity WITH rest breaks Dates: Start: 05/04/25 Expected End: 05/13/25 Description: Goal Description: for increased ease of ADLs and household mobility upon return home. Disciplines: PT Problem: Bed Mobility Dates: Start: 05/04/25 Disciplines: PT Goal: Patient will perform bed mobility with Moderate Assist Dates: Start: 05/04/25 Expected End: 05/13/25 Description: Goal Description: with use of hospital bed functions do to improving knowledge of log roll/reverse log roll technique to compensate for LE weakness. Disciplines: PT Outcomes Date/Time User Outcome 05/06/25 1037 Mone Mosqueda PT Progressing Goal Note filed on 05/06/25 1037 by Mone Mosqueda PT Evaluation of progress towards goal: mod A of 1 today for supine to sit and mod/max A for sit to supine. Problem: Gait Dates: Start: 05/04/25 Disciplines: PT Goal: Patient will perform gait with Contact Guard Dates: Start: 05/04/25 Expected End: 05/13/25 Description: With_RW___,__20__feet Goal Description: to negotiate functional distances within hospital room. Disciplines: PT Outcomes Date/Time User Outcome 05/06/25 1037 Mone Mosqueda PT Progressing Goal Note filed on 05/06/25 1037 by Mone Mosqueda PT Evaluation of progress towards goal: pt ambulated 5 ft with rolling walker and stood 1-2 minutes but veryfatigued. Problem: Transfers Dates: Start: 05/04/25 Disciplines: PT Goal: Patient will perform transfers with Contact Guard Dates: Start: 05/04/25 Expected End: 05/13/25 Description: Goal Description: and use of RW do to improving LE strength and balance. Disciplines: PT Outcomes Date/Time User Outcome 05/06/25 1037 Mone Mosqueda PT Progressing Goal Note filed on 05/06/25 1037 by Mone Mosqueda PT Evaluation of progress towards goal: min A today Physical Therapy Care Plan (Resolved) There are no resolved problems. Principal Problem: Acute upper GI bleed Active Problems: Hypertension Type 2 diabetes mellitus with diabetic polyneuropathy, with long-term current use of insulin ([facility]) Vitamin B12 deficiency Hyperlipidemia Hyperkalemia Weakness Paroxysmal atrial fibrillation ([facility]) Iron deficiency anemia due to chronic blood loss Vaginal bleeding Left lower lobe pulmonary infiltrate Acute kidney injury superimposed on stage 3b chronic kidney disease ([facility]) * Discharge Planning Note - CARY Johnson - 05/06/2025 10:24 AM EDT Images from the original note were not included. Ongoing Assessment for Discharge Needs Reviewed discharge milestones and patient needs related to discharge plan. Current estimated discharge date of May 07, 2025 has been reviewed by treatment team. Update in Daily Transition Rounds, anticipate colonoscopy on Saturday. Will need to submit for insurance approval for SNF at [facility] & needs [id number] completedprior to DC. Update sent to Guerda Amaroue via [employer] that pt will have colonoscopy of Saturday. Care Navigation will continue to follow patient progress to determine appropriate safe care transition needs. Ongoing Assessment for Discharge Needs Flowsheet Row Most Recent Value Referral To Community Referrals / Resources Provided Financial Resources [referral made to [facility] [employer] to assist pt/ with Medicaid application] Services Requested Patient expects to be discharged to: [facility] Does the patient wish to have family/friend/caregiver involved in their discharge planning? Yes Does the patient plan to return home to a community setting? No, patient to discharge to facility-based provider. See Discharge Disposition Discharge Disposition SNF SN[facility] Name [facility] SN[facility] Accepted? Yes Patient choice offered Yes List Provided Yes DC Planning Complete Discharge Milestones Yes * Plan of Care - Elisa Smith RN - 05/06/2025 8:10 AM EDT Problem: Pain Goal: Patient goal is pain score less than 4, able to rest, and participant in treatment plan as appropriate Description: INTERVENTIONS: 1. Encourage patient or legal arborist representative to report early pain and ask for pain medicine when needed 2. Assess pain using appropriate pain scale and include the scale used when documenting 3. Administer analgesics based on type and severity of pain and evaluate response within appropriate time frame 4. Implement non-pharmacological measures as appropriate and evaluate response 5. Consider cultural and social influences on pain and pain management 6. Notify LIP if interventions ineffective or patient reports new pain 7. Monitor vital signs including pulse ox, end-tidal CO2 based on pain intervention 8. Reassess pain per policy 9. Teach patient or legal arborist representative interventions for comforting Outcome: Progressing Note: Evaluation of progress towards goal: monitor and treat pain as ordered Problem: Safety Goal: Patient will be injury free during hospitalization Description: INTERVENTIONS: 1. Assess patient's risk for falls and implement fall prevention plan of care per policy 2. Provide and maintain a safe environment 3. Proper use of double Identifiers 4. Medication administration using the 5 rights 5. Hand hygiene 6. Specimens are labeled at the bedside 7. Instruct patient/ patient arborist representative about use of safety devices 8. Include patient/ patient arborist representative in decisions related to safety Outcome: Progressing Note: Evaluation of progress towards goal: remains free from fall/ injury * Plan of Care - Neelam Luna RN - 05/06/2025 2:36 AM EDT Problem: Pain Goal: Patient goal is pain score less than 4, able to rest, and participant in treatment plan as appropriate Description: INTERVENTIONS: 1. Encourage patient or legal arborist representative to report early pain and ask for pain medicine when needed 2. Assess pain using appropriate pain scale and include the scale used when documenting 3. Administer analgesics based on type and severity of pain and evaluate response within appropriate time frame 4. Implement non-pharmacological measures as appropriate and evaluate response 5. Consider cultural and social influences on pain and pain management 6. Notify LIP if interventions ineffective or patient reports new pain 7. Monitor vital signs including pulse ox, end-tidal CO2 based on pain intervention 8. Reassess pain per policy 9. Teach patient or legal arborist representative interventions for comforting Note: Evaluation of progress towards goal: Denies pain Problem: Safety Goal: Patient will be injury free during hospitalization Description: INTERVENTIONS: 1. Assess patient's risk for falls and implement fall prevention plan of care per policy 2. Provide and maintain a safe environment 3. Proper use of double Identifiers 4. Medication administration using the 5 rights 5. Hand hygiene 6. Specimens are labeled at the bedside 7. Instruct patient/ patient arborist representative about use of safety devices 8. Include patient/ patient arborist representative in decisions related to safety Outcome: Progressing Note: Evaluation of progress towards goal: Safety maintained; alert and oriented to own abilities Problem: Infection Goal: Absence of infection during hospitalization Description: INTERVENTIONS 1. Assess and monitor for signs and symptoms of infection. 2. Monitor lab/diagnostic results. 3. Monitor all insertion sites i.e., indwelling lines, tubes and drains. 4. Monitor endotracheal (as able) and nasal secretions for changes in amount and color. 5. Administer medications as ordered. 6. Instruct and encourage patient and family to use good hand hygiene technique. 7. Identify and instruct patient/patient arborist representative in use of appropriate isolation precautionsfor identified infection/symptoms. 8. Provide and discuss with patient/patient arborist representative on educational MDRO sheet. 9. Encourage and monitor nutritional status daily and consult inbound call center representative if indicated. 10. Implement neutropenic guidelines as needed. Outcome: Progressing Note: Evaluation of progress towards goal: On going monitoring * Discharge Planning Note - Vipul Steele - 05/05/2025 3:51 PM EDT DISCHARGE PLANNING NOTE Clinical updates sent to [facility] (P# ; F# ) * Discharge Planning Note - CARY Johnson - 05/05/2025 3:34 PM EDT Ongoing Assessment for Discharge Needs Reviewed discharge milestones and patient needs related to discharge plan. Current estimated discharge date of May 07, 2025 has been reviewed by treatment team. RN informs family asking for SW; real estate underwriter to pt room, requesting assistance with Medicaid application he has. Informed real estate underwriter would make referral to Pt. Financial Services to assist. Music Specialist spoke with [facility] [employer], they will meet with pt/ & assist. Update from RN, EGD completed today; not able to perform colonoscopy today, will attempt tomorrow. Tasked Transition Center to send clinical updates to [facility]. Care Navigation will continue to follow patient progress to determine appropriate safe care transition needs. Ongoing Assessment for Discharge Needs Flowsheet Row Most Recent Value Referral To Community Referrals / Resources Provided Denies needs Services Requested Patient expects to be discharged to: [facility] Does the patient wish to have family/friend/caregiver involved in their discharge planning? Yes Does the patient plan to return home to a community setting? No, patient to discharge to facility-based provider. See Discharge Disposition Discharge Disposition SNF SN[facility] Name [facility] Accepted? Yes Patient choice offered Yes List Provided Yes DC Planning Complete Discharge Milestones Yes DISCHARGE PLAN: [facility] [place] UP[employer] INSURANCE APPROVAL & [id number] * PT/OT/HAT PRESSER - Lupe Wakefield, PT - 05/05/2025 1:50 PM EDT Physical Therapy PT Type of Visit: (P) Medical deferral Reason For Medical Deferral: (P) Off unit, Medical procedure ongoing PT will continue to follow this patient. Patient out of room for procedure at this time. * Plan of Care - Elisa Smith RN - 05/05/2025 9:05 AM EDT Problem: Pain Goal: Patient goal is pain score less than 4, able to rest, and participant in treatment plan as appropriate Description: INTERVENTIONS: 1. Encourage patient or legal arborist representative to report early pain and ask for pain medicine when needed 2. Assess pain using appropriate pain scale and include the scale used when documenting 3. Administer analgesics based on type and severity of pain and evaluate response within appropriate time frame 4. Implement non-pharmacological measures as appropriate and evaluate response 5. Consider cultural and social influences on pain and pain management 6. Notify LIP if interventions ineffective or patient reports new pain 7. Monitor vital signs including pulse ox, end-tidal CO2 based on pain intervention 8. Reassess pain per policy 9. Teach patient or legal arborist representative interventions for comforting Outcome: Progressing Note: Evaluation of progress towards goal: monitor and treat pain as ordered Problem: Safety Goal: Patient will be injury free during hospitalization Description: INTERVENTIONS: 1. Assess patient's risk for falls and implement fall prevention plan of care per policy 2. Provide and maintain a safe environment 3. Proper use of double Identifiers 4. Medication administration using the 5 rights 5. Hand hygiene 6. Specimens are labeled at the bedside 7. Instruct patient/ patient arborist representative about use of safety devices 8. Include patient/ patient arborist representative in decisions related to safety Outcome: Progressing Note: Evaluation of progress towards goal: remains free from fall/ injury * PT/OT/HAT PRESSER - SALO Chand - 05/04/2025 1:16 PM EDT Occupational Therapy Evaluation (completed with PT in order to maximixe patient's functional outcomes) Discharge Recommendations for Safe Patient Transition Discharge Recommendations: Post acute - moderate Post Acute Moderate Rehab Needs: Recommend moderate intensity rehab, Tolerate 1- 2 hrs of therapy 3-5 days/wk, Subacute or chronic functional impairment Current Impairments Informing Therapy Recommendation: Ambulation status/safety, Cognition, Fall risk, ADL status, Endurance level Vacuum Conditioner Operator Support for-: Mobility Deficits, ADL Deficits 6 Clicks: Daily Activity Putting on and taking off regular lower body clothing?: Total Bathing (including washing, rinsing, drying)?: A lot Toileting, which includes using toilet, bedpan or urinal?: Total Putting on and taking off regular upper body clothing?: A little Taking care of personal grooming such as brushing teeth?: A little Eating meals?: A little Scoring Daily Activity Raw Score: 13 CMS G Code Modifier: CL Therapy Plan/HPI/occupational profile throughout eval Need for skilled Occupational Therapy to address deficits in ADL independence and functional mobility due to a status decline resulting from acute upper GI bleed. Patient was [facility] at [facility] with fall resulting in a L hematoma and a R SDH. Pt is noted to have edema in BLE. A high complex eval was completed. Past Surgical History: Procedure Laterality Date APPENDECTOMY 6 BACK SURGERY x 2 BREAST BIOPSY Left 06/03/2001 BREAST BIOPSY Left 1998 BREAST BIOPSY Left 2005 CARDIAC CATHETERIZATION CHOLECYSTECTOMY 1974 COLONOSCOPY N/A 05/22/2023 Performed by Triston Sanford DO at [facility] CORONARY ANGIOPLASTY WITH STENT PLACEMENT 08/10/2024 x1 ESOPHAGOGASTRODUODENOSCOPY N/A 05/22/2023 Performed by Triston Sanford DO at [facility] HERNIA REPAIR HYSTERECTOMY 1980 INJECTION BLOCK EPIDURAL CAUDAL STEROID N/A 11/01/2023 Performed by Xu Campa MD at [facility] INJECTION BLOCK NERVE MEDIAL BRANCH: bilat L 4/5 5/ Bilateral 06/21/2023 Performed by Xu Campa MD at [facility] INJECTION BLOCK NERVE MEDIAL BRANCH: bilat L 4/5 5/ Bilateral 02/22/2023 Performed by Xu Campa MD at [facility] INJE[facility] BLOCK SACROILIAC JOINT Right 02/07/2024 Performed by Xu Campa MD at [facility] BLOCK SACROILIAC JOINT Right 09/13/2023 Performed by Xu Campa MD at [facility] INJECTION BLOCK SACROILIAC JOINT Right 11/09/2022 Performed by Xu Campa MD at [facility] INJECTION BURSA LARGE JOINT: right hip Right 12/28/2022 Performed by Xu Campa MD at [facility] INJECTION BURSA LARGE JOINT: right hip Right 07/19/2023 Performed by Xu Campa MD at [facility] OOPHORECTOMY ROTATOR CUFF REPAIR x 3 TUBAL LIGATION 1974 Past Medical History: Diagnosis Date Anemia Angina pectoris Arthritis C. difficile colitis 06/2023 still tx 08/08/23 Chronic kidney disease Chronic pain disorder Depression Diabetes mellitus type 2, controlled ([facility]) GERD (gastroesophageal reflux disease) Hyperlipidemia Hypertension Ischemic bowel disease Kidney stone hx Low back pain Myocardial infarction ([facility]) Obesity Osteoarthritis Osteoporosis Palpitations Paroxysmal A-fib ([facility]) Pneumonia 08/2024 Visual impairment OT Treatment/Interventions: Functional transfer training, ADL retraining, UE strengthening/ROM, Endurance training, Patient/family training, Equipment eval/education, Balance, Home management, Compensatory technique education, Functional activities OT Frequency: 4-5days/week OT Duration: 10 days Assessment Patient Assessment Therapy Problem List: Decreased ADL status, Decreased balance, Decreased endurance, Decreased fine motor, Decreased gross motor, Decreased high-level ADLs, Decreased mobility, Decreased safe judgement during ADL, Decreased self- care trans, Decreased UE strength Patient Response to Treatment: Tolerated evaluation without adverse reaction Mood/Affect: Appropriate for circumstances Rehab Prognosis: Good, With continued OT status post acute discharge Visit RN Communication: Yes Medical Record Reviewed: Yes OT Type of Visit: Evaluation (completed with PT in order to maximixe patient's functional outcomes) Precautions Activity: early mobility pass, OK to eval per Caridad BRIONES Equipment: marino, IV, nonskid socks, walker, gait belt, bed and chair alarm Telemetry/Asic Design Engineer: Yes Oxygen Used: room air Other: mulitple bruises on face Subjective Occupational Therapy Comments: I have 3 skilled days left on m insurance Pain Assessment Pain Assessment: No/denies pain Home Living Other : prior to admit at [facility] at the start of March pt was living at home.Home Living Type of Home: House Home Layout: Two level, Performs ADLs on one level, Stairs to enter with rails Stairs to Enter: 3 Hand Rails: Left Stairs in Home: flight to second floor - does not need to traverse, it also sounds like maybe a couple of steps indoors from an inclosed porch that the patient has to negotiate Bathroom Shower/Tub: Tub/shower unit Bathroom Toilet: Raised Bathroom Equipment: Shower chair, Grabbars in shower Home Equipment: Cane, 4 Wheeled walker Other : Uses cane indoors and 4WW out of doors . pt was at [facility] pior to admit to [facility] Prior Function Other: Prior Function Lives With: Spouse, Other (Comment) (adult grandaughter that is home and available to help; works and has flexible schedule) Receives Help From: Family ([facility] [place]) Level of Mobility: (see below) Homemaking Assistance: (see below) Other: Patient stated that she needs help to get in/our of shower/tub, help with ADLs at times (especially lower body). reports patient is minimally active at home and walks household distances with prolonged rest breaks. She will help with making family meals. working with therapy while at [facility], needed assist for bathing and dressing ADL / IADL Hand Dominance: Right Eating Assistance: Contact guard assist Grooming Assistance: Standby assist (seated) Bathing/Showering Assistance: Mod assist, Max assist Bathing/Showering Deficit: Left upper leg, Right lower leg including foot, Left lower leg includingfoot, Right upper leg, Buttocks, Perineal area, Abdomen Toilet/Commode Assistance: Total assist (marino. total assist for sirena area care hygiene while supine) UE Dressing Assistance: Min assist LE Dressing Assistance: Total assist LE Dressing Deficit: Don/doff brief (while supine) Footwear Assistance: Total assist Footwear Deficit: R sock, L sock Other: real estate underwriter introduced self role and goals of therapy, agreeable to session. ADL assessment is based on clinical judgement and observation of pt's ability to complete ROM, strength, endurance, sit and stand balance and functional mobility status and safety awareness Home Management - IADL Other: real estate underwriter introduced self role and goals of therapy, agreeable to session. ADL assessment is based on clinical judgement and observation of pt's ability to complete ROM, strength, endurance, sit and stand balance and functional mobility status and safety awareness Hearing / Speech / Vision Hearing: Within Functional Limits Speech: Within Functional Limits Current Vision: Wears glasses all the time Cognition Orientation Level: Oriented to month, Oriented to time, Oriented to place, Oriented to person, Oriented to age Sensation Overall Sensation Status: (denies numbness and tingling) Bed Mobility Rolling: Min assist (during ADL tasks) Supine to Sit: Max assist (head of bed flat and use of bed rail) Other: remains in chair at end of session , alarm on , needs with in reach, ed to use call light Transfers Sit to Stand: Min assist (cues for had placement) Stand to Sit: Min assist, Verbal cues Bed to Chair: Min assist (completes with RW, loss of balance noted posteriorly and min assist to correct) Balance Sitting Balance: Static: Good Sitting Balance: Dynamic: Fair Standing Balance: Static: Fair, Poor Standing Balance: Dynamic: Poor RUE Assessment: (grossly 3+/5) LUE Assessment: (grossly 3+/5) Activity Tolerance Endurance: Tolerates <30 minutes activity WITHOUT vital sign changes Plan Occupational Therapy Care Plan Occupational Therapy Care Plan (Active) Template: OT - Occupational Therapy Problem: Activity Tolerance Dates: Start: 05/04/25 Disciplines: OT Goal: Tolerate > 30 minutes of activity WITH rest breaks Dates: Start: 05/04/25 Expected End: 05/13/25 Description: Goal Description:patient to engage in activities of choice with out changes in vitals in order to promote return to prior level of function Disciplines: OT Problem: Other (Customize) Dates: Start: 05/04/25 Disciplines: OT Goal: Improve Dates: Start: 05/04/25 Expected End: 05/13/25 Description: Goal Description:Patient to increase IND in ADls to min assist for lower body with useof AE inlcuding toileting tasks and transfers and SBA for upper body tasks in order to promote return to prior level of function Disciplines: OT Problem: Standing Balance Dates: Start: 05/04/25 Disciplines: OT Goal: Improve balance to good Dates: Start: 05/04/25 Expected End: 05/13/25 Description: Patient to increase standing balance to good in order to increase IND in ADLS and lower body dressing tasks Disciplines: OT Problem: Strength Dates: Start: 05/04/25 Disciplines: OT Goal: Improve strength Dates: Start: 05/04/25 Expected End: 05/13/25 Description: Of extremity/ location:pt to increase BUE strength to assist with increased independence in ADL and functional mobility tasks Disciplines: OT Occupational Therapy Care Plan (Resolved) There are no resolved problems. Principal Problem: Acute upper GI bleed Active Problems: Hypertension Type 2 diabetes mellitus with diabetic polyneuropathy, with long-term current use of insulin ([facility]) Vitamin B12 deficiency Hyperlipidemia Hyperkalemia Weakness Paroxysmal atrial fibrillation ([facility]) Iron deficiency anemia due to chronic blood loss Vaginal bleeding Left lower lobe pulmonary infiltrate Acute kidney injury superimposed on stage 3b chronic kidney disease ([facility]) * Discharge Planning Note - CARY Johnson - 05/04/2025 12:19 PM EDT Ongoing Assessment for Discharge Needs Reviewed discharge milestones and patient needs related to discharge plan. Current estimated discharge date of May 07, 2025 has been reviewed by treatment team. Message per [facility] from [facility] that pt is into the insurance co-pay days & they spoke with pt regarding this. Update in Daily Transition Rounds, to to have testing tomorrow; DC pending testing & results. Met with pt & her granddaughter informed on message from [facility] & that they spoke with pt , pt states understanding; opportunity provided to ask questions, pt does not endorse any at this time. Music Specialist will task to send PT/OT evaluations to [facility] when available. Ongoing Assessment for Discharge Needs Flowsheet Row Most Recent Value Referral To Community Referrals / Resources Provided Denies needs Services Requested Patient expects to be discharged to: [facility] Does the patient wish to have family/friend/caregiver involved in their discharge planning? Yes Does the patient plan to return home to a community setting? No, patient to discharge to facility-based provider. See Discharge Disposition Discharge Disposition SNF SN[facility] Accepted? Yes Patient choice offered Yes List Provided Yes DC Planning Complete Discharge Milestones Yes * PT/OT/HAT PRESSER - Lupe Wakefield, PT - 05/04/2025 10:45 AM EDT Physical Therapy Evaluation (performed with OT to improve patient's functional mobility outcomes and to improve activity tolerance in presence of low hemoglobin) Discharge Recommendations for Safe Patient Transition Discharge Recommendations: Post acute - moderate Post Acute Moderate Rehab Needs: Recommend moderate intensity rehab, Tolerate 1- 2 hrs of therapy 3-5 days/wk, Subacute or chronic functional impairment Current Impairments Informing Therapy Recommendation: Ambulation status/safety, Cognition, Fall risk, ADL status, Endurance level Vacuum Conditioner Operator Support for-: Mobility Deficits, ADL Deficits 6 Clicks: Basic Mobility Turning from your back to your side while in a flat bed without using bed rails?: A lot Moving from lying on your back to sitting on side of flat bed without using bed rails?: A lot Moving to and from bed to a chair (including w/c)?: A little Standing up from a chair using your arms (e.g. w/c or bedside chair)?: A little To walk in hospital room?: A little Climbing 3-5 steps with a railing?: A lot Scoring 6 Clicks: Basic Mobility Raw Score: 15 CMS G Code Modifier: CK Therapy Plan Need for skilled Physical Therapy to address deficits in functional mobility due to a status decline resulting from acute upper GI bleed with symptomatic anemia. PT Treatment/Interventions: Functional transfer training, LE strengthening/ROM, Endurance training,Balance, Bed mobility, Gait training, Functional activities, Neuromuscular reeducation PT Frequency: 5-6days/week PT Duration: 10 days Assessment Patient Assessment Therapy Problem List: Decreased ADL status, Decreased balance, Decreased endurance, Decreased fine motor, Decreased gross motor, Decreased high-level ADLs, Decreased mobility, Decreased safe judgement during ADL, Decreased self- care trans, Decreased UE strength, Decreased LE strength Patient Response to Treatment: Tolerated evaluation without adverse reaction Mood/Affect: Appropriate for circumstances Rehab Prognosis: Good, With continued PT status post acute discharge, 24 hour supervision recommended Visit RN Communication: Yes Medical Record Reviewed: Yes PT Type of Visit: Evaluation (performed with OT to improve patient's functional mobility outcomes and to improve activity tolerance in presence of low hemoglobin) Precautions Activity: early mobility pass, OK to eval per RNCaridad Equipment: marino, IV, nonskid socks, walker, gait belt, bed and chair alarm Telemetry/Asic Design Engineer: Yes Oxygen Used: room air Other: mulitple bruises on face Past Medical History: Diagnosis Date Anemia Angina pectoris Arthritis C. difficile colitis 06/2023 still tx 08/08/23 Chronic kidney disease Chronic pain disorder Depression Diabetes mellitus type 2, controlled ([facility]) GERD (gastroesophageal reflux disease) Hyperlipidemia Hypertension Ischemic bowel disease Kidney stone hx Low back pain Myocardial infarction ([facility]) Obesity Osteoarthritis Osteoporosis Palpitations Paroxysmal A-fib ([facility]) Pneumonia 08/2024 Visual impairment Past Surgical History: Procedure Laterality Date APPENDECTOMY 1955 BACK SURGERY x 2 BREAST BIOPSY Left 06/03/2001 BREAST BIOPSY Left 1998 BREAST BIOPSY Left 2006 CARDIAC CATHETERIZATION CHOLECYSTECTOMY 1974 COLONOSCOPY N/A 05/22/2023 Performed by Triston Sanford DO at [facility] CORONARY ANGIOPLASTY WITH STENT PLACEMENT 08/10/2024 x1 ESOPHAGOGASTRODUODENOSCOPY N/A 05/22/2023 Performed by Triston Sanford DO at [facility] HERNIA REPAIR HYSTERECTOMY 1981 INJECTION BLOCK EPIDURAL CAUDAL STEROID N/A 11/01/2023 Performed by Xu Campa MD at [facility] INJECTION BLOCK NERVE MEDIAL BRANCH: bilat L 4/5 5/ Bilateral 06/21/2023 Performed by Xu Campa MD at [facility] INJECTION BLOCK NERVE MEDIAL BRANCH: bilat L 4/5 5/ Bilateral 02/22/2023 Performed by Xu Campa MD at [facility] INJECTION BLOCK SACROILIAC JOINT Right 02/07/2024 Performed by Xu Campa MD at [facility] INJECTION BLOCK SACROILIAC JOINT Right 09/13/2023 Performed by Xu Campa MD at [facility] INJECTION BLOCK SACROILIAC JOINT Right 11/09/2022 Performed by Xu Campa MD at [facility] INJECTION BURSA LARGE JOINT: right hip Right 12/28/2022 Performed by Xu Campa MD at [facility] INJECTION BURSA LARGE JOINT: right hip Right 07/19/2023 Performed by Xu Campa MD at [facility] OOPHORECTOMY ROTATOR CUFF REPAIR x 3 TUBAL LIGATION 1975 Pain Assessment Pain Assessment: No/denies pain Home Living Other : prior to admit at [facility] at the start of March pt was living at home.Home Living Type of Home: House Home Layout: Two level, Performs ADLs on one level, Stairs to enter with rails Stairs to Enter: 3 Hand Rails: Left Stairs in Home: flight to second floor - does not need to traverse, it also sounds like maybe a couple of steps indoors from an inclosed porch that the patient has to negotiate Bathroom Shower/Tub: Tub/shower unit Bathroom Toilet: Raised Bathroom Equipment: Shower chair, Grabbars in shower Home Equipment: Cane, 4 Wheeled walker Other : Uses cane indoors and 4WW out of doors . pt was at [facility] pior to admit to [facility] Prior Function Other: Prior Function Lives With: Spouse, Other (Comment) (adult [facility] that is home and available to help; works and has flexible schedule) Receives Help From: Family (another grown local [facility] in [place]) Level of Mobility: (see below) Homemaking Assistance: (see below) Other: Patient stated that she needs help to get in/our of shower/tub, help with ADLs at times (especially lower body). reports patient is minimally active at home and walks household distances with prolonged rest breaks. She will help with making family meals. working with therapy while at [facility], needed assist for bathing and dressing ADL / IADL Hand Dominance: Right Hearing / Speech / Vision Hearing: Within Functional Limits Speech: Within Functional Limits Current Vision: Wears glasses all the time Cognition Orientation Level: Oriented to month, Oriented to time, Oriented to place, Oriented to person, Oriented to age Sensation Overall Sensation Status: (Denies numbness/tingling so did not formally assess at this time.) Bed Mobility Rolling: Min assist (during ADL tasks) Supine to Sit: Max assist (head of bed flat, use of rail, cues to sequence through log roll technique. Requires support to bring LEs fully off of bed as well as to then bring trunk over base of support.) Other: Ends session in bedside chair, reclined, chair alarm intact, call button and bedside table within reach. Denies further needs. Transfers Sit to Stand: Min assist (cues for hand placement with use of walker) Stand to Sit: Min assist, Verbal cues (safe hand placement and eccentric control.) Bed to Chair: Min assist (Cues for more upright posture, proximity to walker. One posterior loss ofbalance requiring min A and stepping strategy to recover.) Gait Base of Support: Wide Pattern: Decreased brady, R Decreased heel strike, L Decreased heel strike, R Decreased foot clearance, L Decreased foot clearance, Forward trunk Gait Assistance: Min assist Assistive Device: Rolling walker Gait Distance: 3ft (Limited ambulation as patient with loss of balance and also with reports of atouch of dizziness. ) Balance Sitting Balance: Static: Good Sitting Balance: Dynamic: Fair Standing Balance: Static: Fair, Poor Standing Balance: Dynamic: Poor RLE Assessment: (at least 3+/5 myotomes L1-S1) LLE Assessment: (At least 3+/5 myotomes L1-S1) Activity Tolerance Endurance: Tolerates <30 minutes activity WITHOUT vital sign changes Plan Physical Therapy Care Plan Physical Therapy Care Plan (Active) Template: PT - Physical Therapy Problem: Activity Tolerance Dates: Start: 05/04/25 Disciplines: PT Goal: Tolerate 30 minutes of activity WITH rest breaks Dates: Start: 05/04/25 Expected End: 05/13/25 Description: Goal Description: for increased ease of ADLs and household mobility upon return home. Disciplines: PT Problem: Bed Mobility Dates: Start: 05/04/25 Disciplines: PT Goal: Patient will perform bed mobility with Moderate Assist Dates: Start: 05/04/25 Expected End: 05/13/25 Description: Goal Description: with use of hospital bed functions do to improving knowledge of log roll/reverse log roll technique to compensate for LE weakness. Disciplines: PT Problem: Gait Dates: Start: 05/04/25 Disciplines: PT Goal: Patient will perform gait with Contact Guard Dates: Start: 05/04/25 Expected End: 05/13/25 Description: With_RW___,__20__feet Goal Description: to negotiate functional distances within hospital room. Disciplines: PT Problem: Transfers Dates: Start: 05/04/25 Disciplines: PT Goal: Patient will perform transfers with Contact Guard Dates: Start: 05/04/25 Expected End: 05/13/25 Description: Goal Description: and use of RW do to improving LE strength and balance. Disciplines: PT Physical Therapy Care Plan (Resolved) There are no resolved problems. Principal Problem: Acute upper GI bleed Active Problems: Hypertension Type 2 diabetes mellitus with diabetic polyneuropathy, with long-term current use of insulin ([facility]) Vitamin B12 deficiency Hyperlipidemia Hyperkalemia Weakness Paroxysmal atrial fibrillation ([facility]) Iron deficiency anemia due to chronic blood loss Vaginal bleeding Left lower lobe pulmonary infiltrate Acute kidney injury superimposed on stage 3b chronic kidney disease ([facility]) * Plan of Care - Caridad Mccormick RN - 05/04/2025 8:35 AM EDT Problem: Pain Goal: Patient goal is pain score less than 4, able to rest, and participant in treatment plan as appropriate Description: INTERVENTIONS: 1. Encourage patient or legal arborist representative to report early pain and ask for pain medicine when needed 2. Assess pain using appropriate pain scale and include the scale used when documenting 3. Administer analgesics based on type and severity of pain and evaluate response within appropriate time frame 4. Implement non-pharmacological measures as appropriate and evaluate response 5. Consider cultural and social influences on pain and pain management 6. Notify LIP if interventions ineffective or patient reports new pain 7. Monitor vital signs including pulse ox, end-tidal CO2 based on pain intervention 8. Reassess pain per policy 9. Teach patient or legal arborist representative interventions for comforting Outcome: Progressing Note: Evaluation of progress towards goal: Denied pain at present Problem: Safety Goal: Patient will be injury free during hospitalization Description: INTERVENTIONS: 1. Assess patient's risk for falls and implement fall prevention plan of care per policy 2. Provide and maintain a safe environment 3. Proper use of double Identifiers 4. Medication administration using the 5 rights 5. Hand hygiene 6. Specimens are labeled at the bedside 7. Instruct patient/ patient arborist representative about use of safety devices 8. Include patient/ patient arborist representative in decisions related to safety Outcome: Progressing Note: Evaluation of progress towards goal: PT is free of falls, hourly rounding is completed, area is kept clear. Problem: Infection Goal: Absence of infection during hospitalization Description: INTERVENTIONS 1. Assess and monitor for signs and symptoms of infection. 2. Monitor lab/diagnostic results. 3. Monitor all insertion sites i.e., indwelling lines, tubes and drains. 4. Monitor endotracheal (as able) and nasal secretions for changes in amount and color. 5. Administer medications as ordered. 6. Instruct and encourage patient and family to use good hand hygiene technique. 7. Identify and instruct patient/patient arborist representative in use of appropriate isolation precautionsfor identified infection/symptoms. 8. Provide and discuss with patient/patient arborist representative on educational MDRO sheet. 9. Encourage and monitor nutritional status daily and consult inbound call center representative if indicated. 10. Implement neutropenic guidelines as needed. Outcome: Progressing Note: Evaluation of progress towards goal: Pt assessed and monitored for signs and symptoms of infection, lab and diagnostic results monitored as needed, administer medications as needed. Problem: Knowledge Deficit Goal: Patient/patient arborist representative demonstrates understanding of disease process, treatment plan,medications, and discharge instructions Description: INTERVENTIONS 1. Complete learning assessment and assess knowledge base 2. Provide teaching at level of understanding 3. Provide teaching via preferred learning method(s) Outcome: Progressing Note: Evaluation of progress towards goal: Learning assessment and knowledge base assessed, teaching provided at an understandable level as needed. * Plan of Care - Chey Al RN - 05/04/2025 1:40 AM EDT Problem: Pain Goal: Patient goal is pain score less than 4, able to rest, and participant in treatment plan as appropriate Description: INTERVENTIONS: 1. Encourage patient or legal arborist representative to report early pain and ask for pain medicine when needed 2. Assess pain using appropriate pain scale and include the scale used when documenting 3. Administer analgesics based on type and severity of pain and evaluate response within appropriate time frame 4. Implement non-pharmacological measures as appropriate and evaluate response 5. Consider cultural and social influences on pain and pain management 6. Notify LIP if interventions ineffective or patient reports new pain 7. Monitor vital signs including pulse ox, end-tidal CO2 based on pain intervention 8. Reassess pain per policy 9. Teach patient or legal arborist representative interventions for comforting Outcome: Progressing Note: Evaluation of progress towards goal: Pt able to report pain according to 0/10 pain scale. Medicating patient for pain per orders. Problem: Infection Goal: Absence of infection during hospitalization Description: INTERVENTIONS 1. Assess and monitor for signs and symptoms of infection. 2. Monitor lab/diagnostic results. 3. Monitor all insertion sites i.e., indwelling lines, tubes and drains. 4. Monitor endotracheal (as able) and nasal secretions for changes in amount and color. 5. Administer medications as ordered. 6. Instruct and encourage patient and family to use good hand hygiene technique. 7. Identify and instruct patient/patient arborist representative in use of appropriate isolation precautionsfor identified infection/symptoms. 8. Provide and discuss with patient/patient arborist representative on educational MDRO sheet. 9. Encourage and monitor nutritional status daily and consult inbound call center representative if indicated. 10. Implement neutropenic guidelines as needed. Outcome: Progressing Note: Evaluation of progress towards goal: Patient VS WNL, remains afebrile for shift. Continue to monitor. Problem: Moderate - High Risk Fall Score Description: Vasquez Fall Score of =/> 25 [facility] Goal: Patient should be free from fall Description: Interventions: 1. [place] to environment 2. Hourly rounds addressing the 4 P's (Pain, Positioning, Possessions, Potty) 3. Clear area of hazards (spills, clutter, electrical cords, unnecessary equipment) 4. Place equipment (bed & TV controls, call light, phone, urinal) within reach 5. Encourage patient to wear glasses and hearing aides as appropriate 6. Maintain bed in lowest position 7. Lock wheels on bed/wheelchair 8. Provide adequate lighting, including night light 9. Assess need for additional bedding, food/fluids, pain med's prior to sleep/routinely 10. Provide gripper slippers or personal non-skid footwear 11. Teach patient and patient arborist representative to maintain environment for safety and engage in all aspects of fall prevention program 12. Remind patient to call for help before getting out of bed 13. Initiate bed/chair/exit alarms supportive devices as appropriate, (chair wedge, no-skid floor mat, raised edge mattress, hip protectors) 14. Locate patient bed assignment for optimal visualization 15. Evaluate and identify Safe Patient Handling Equipment needs 16. Provide supervision when out of bed or chair 17. Utilize gait belt as needed to assist with ambulation 18. Place adaptive equipment (cane, walker) within reach 19. Request patient arborist representative bring adaptive equipment/mobility aids from home or obtain and provide as needed 20. Consult pharmacy regarding effects of med's affecting mobility, cognition, and alternatives 21. Obtain physician order for PT if risk factors associated with mobility are present 22. Obtain physician order for OT as appropriate 23. Utilize diversional activities 24. Educate patient and patient arborist representative how to maintain a safe environment during visitationtimes (notify nurse prior to leaving bedside) 25. Consider appropriateness of medical or non-resident medical officer 26. Set up voiding schedule as appropriate (every 2 hours) Outcome: Progressing Note: Evaluation of progress towards goal: Pt remains free from falls or accidental injury during stay. Fall prevention measures in place. Hourly rounding per RN and maintained. * Discharge Planning Note - CARY Johnson - 05/03/2025 3:47 PM EDT Ongoing Assessment for Discharge Needs Reviewed discharge milestones and patient needs related to discharge plan. Current estimated discharge date of May 06, 2025 has been reviewed by treatment team. [facility] no beds, [facility], [facility] can accept. Met with pt & , informed on above; pt requests [facility] [place]. Message sent to [facility] to disregard referral. Will need to submit for insurance approval when DC know; needs [id number] completed for DC to [facility]. Sticky note on chart. Ongoing Assessment for Discharge Needs Flowsheet Row Most Recent Value Referral To Community Referrals / Resources Provided Denies needs Services Requested Patient expects to be discharged to: [facility] Does the patient wish to have family/friend/caregiver involved in their discharge planning? Yes Does the patient plan to return home to a community setting? No, patient to discharge to facility-based provider. See Discharge Disposition Discharge Disposition SNF SNF Name [facility] SNF Accepted? Yes Patient choice offered Yes List Provided Yes DC Planning Complete Discharge Milestones Yes DISCHARGE PLAN: [facility] upon insurance approval & completed [id number] * Discharge Planning Note - Rocio Rivera - 05/03/2025 2:02 PM EDT DISCHARGE PLANNING NOTE Referral sent to. [facility], [place], [place] (P# ; F# ) [facility] (P# ; F# ) [facility] (P#: ; F#: ) * Wound Care - Veronica Sigala RN - 05/03/2025 11:19 AM EDT Images from the original note were not included. WOUND CARE NOTE Date of Admission: 05/02/2025 8:05 PM Reason for Consult: coccyx History of Present Illness: Irma Caceres who presents with Acute upper Gi bleed and a coccyx wound. Unsure how long wound has been present. Current wound care includes none. Pain is worsened withtouching. Pain is improved with rest. Current wound pain /10. Vital Signs: BP 106/42 Pulse 61 Temp 36.7 ??C (98 ??F) (Oral) Resp 16 Ht 157.5 cm (5' 2 ) Wt 101.2 kg (223 lb 3.2 oz) LMP (LMP Unknown) SpO2 96% BMI 40.82 kg/m?? Wound Assessment: Wound 06/21/23 Incision Back Bilateral (Active) Wound 06/21/23 Incision Back Bilateral (Active) Wound 07/19/23 Incision Hip Right (Active) Wound 09/13/23 Incision Back Right (Active) Wound 02/07/24 Incision Back (Active) Wound 04/10/25 Skin Tear Hand Right (Active) Wound 04/10/25 Skin Tear Coccyx (Active) Wound Image 05/03/25 1100 Site Assessment Red 05/03/25 1100 Sirena-wound Assessment Purple;Blanchable erythema 05/03/25 1100 Shape round 05/03/25 1028 Wound Length (cm) 1.3 cm 05/03/25 1100 Wound Width (cm) 0.8 cm 05/03/25 1100 Wound Surface Area (cm^2) 0.82 cm^2 05/03/25 1100 Wound Depth (cm) 0.1 cm 05/03/25 1100 Wound Volume (cm^3) 0.054 cm^3 05/03/25 1100 Closure Open to air 05/03/25 1028 Drainage Description Serosanguineous;Hopkins;Yellow 05/03/25 1100 Drainage Amount Scant 05/03/25 1100 Dressing Type Triad hydro;Foam 05/03/25 1100 Dressing Changed New 05/03/25 1100 Dressing Status Clean;Dry;Intact 05/03/25 1100 Wound 04/11/25 Skin Tear Arm Proximal;Right (Active) Discussed plan of care with wound care services ACADEMIC AFFAIRS MANAGER Wound Plan Dressing: Coccyx and right lateral calf: Cleanse with soap and water then pat dry. Apply thin layerof triad (Do not scrub off before reapplying). Then cover with foam. Apply daily Offloading: Turn patient every 2 hours utilizing position wedges. Elevate heels off bed to prevent pressure injury (patient has red area on left heel). Skin Care: Moisturize all dry and intact skin daily. Edema Management: Elevate legs 3 times a day above the heart for 10-15 minutes. Follow up: Will continue to follow while inpatient. Thank you for allowing us to participate in the care of this patient. Please feel free to call us with any questions or concerns. Veronica Sigala RN [facility] Preferred contact via Ext. [phone], [place] or [facility] [place] CONSULTING SERVICES ASSOCIATE: Marylin Dewey APRN-ACADEMIC AFFAIRS MANAGER, CWS, COCN * PT/OT/HAT PRESSER - ALMAS Chand/Angela - 05/03/2025 11:04 AM EDT Occupational Therapy OT Type of Visit: Medical deferral Reason For Medical Deferral: Lab results Lab Results: Low hemoglobin OT defers at this time due to low hemoglobin. OT to continue to follow. * Discharge Planning Note - CARY Johnson - 05/03/2025 9:29 AM EDT Images from the original note were not included. Initial Assessment Initial Assessment Flowsheet Row Most Recent Value Patient Information Initial Pre-Hospitalization Assessment Completed? Completed Primary Caregiver Self Accompanied by/Relationship sister & granddaughter Jocelyn Support System Spouse/Significant Other, Children, Family Members [, 3 children, grandchildren] Discharge Planning Living Arrangements Private Residence Assistance Needed rollator Type of Residence Private residence, House Private Residence 2 story Can patient reside on one level? Yes Residence Accessibility Steps into home Number of Steps 3 Home Care Services Yes [[id number] was supposed to begin today] Type of Home Care Services Nurse visit, Home PT Community Referrals / Resources Provided Denies needs Stressors Type of stressor -- [does not endorse] Income Information Income Information Retired/Pension/Social Security IP Hunger/Food Insecurity Screening Within the past 12 months we worried whether our food would run out before we got money to buy more. Never True Within the past 12 months the food we bought just didn't last and we didn't have money to get more.Never True Hunger Screening Complete? Yes Pt. Eligible for Food / Voucher No If Eligible: Received Food Box Not Offered to Patient Warm Handoff Complete Caregiver/Family Member Caregiver/Family Member pt mirtha Banks, listed as contact, was in room during assessment along with pt sister Caregiver/Family Member Involved with Current Plan of Care Yes Caregiver/Family Member in Agreement with Current Plan of Care Yes Caregiver/Support System Limitations Patient/Caregiver Goals Patient/Caregiver Goals Half-Way Care Skilled Nuring Care Skilled Care (Short Term) Community Provider Referral Community Provider Referral None Services Requested Patient expects to be discharged to: SNF Does the patient wish to have family/friend/caregiver involved in their discharge planning? Yes Does the patient plan to return home to a community setting? No, patient to discharge to facility-based provider. See Discharge Disposition Discharge Disposition SNF Patient choice offered Yes List Provided Yes DC Planning Complete Discharge Milestones Yes Services Requested: Services Requested Patient expects to be discharged to:: SNF Does the patient wish to have family/friend/caregiver involved in their discharge planning?: Yes Does the patient plan to return home to a community setting?: No, patient to discharge to facility-based provider. See Discharge Disposition Discharge Disposition: SNF Patient choice offered: Yes List Provided: Yes DC Planning Complete Discharge Milestones: Yes Patient Goals: Patient/Caregiver Goals Patient/Caregiver Goals: Half-Way Care Skilled Nuring Care: Skilled Care (Short Term) Goals SNF (pt-stated) Evaluation of progress towards goal: will need PT/OT evaluations to assist with determining needed DC LOC Chart reviewed. Introduced self & role of BELEN, pleasant pt agreeable to conversation with her sister & 2 granddaughters present; assessment/goals as above. Pt DC from [facility] on Saturday & was send directly to [facility] ED who discharged pt to home. Pt went home & then to [facility] ED. Pt is requesting to go to SNF at DC. Pt informs [id number] was supposed to start home services today. Pt acknowledges insurance terminated at SNF which was why she was DC. Informed pt that she will need insurance approval to DC to SNF unless pt is able to private pay; pt said private pay at SNF is not option & if insurance does not pay she could not go. Educated on HHC & informed on limitation. Pt said her & granddaughter would be able to provide care. Educated on Medicaid proc ess if pt would need LTC, pt states understanding. Provide pt with [facility] SNF Compare list, pt first choice is [facility] however pt would like to discuss with who would be coming later. 13:00: Music Specialist returned to room, pt , multiple grandchildren & sisters present. Music Specialist inquired on SNF choices, reviewing [facility] SNF compare list. Visitors left room to give pt & privacy. Pt said she knows her granddaughters don't feel she can be at home with & other granddaughter & HHC if needed but she feels she would be able to if needed. Pt & give choices of: 1. [facility]. [facility]. [facility] [place]. Opportunity provided to ask questions, pt & do not endorse any at this time. Informed pt & that real estate underwriter would send referrals & await response, will need insurance approval to DC to SNF. Patient's preferred pharmacy is [facility]. PCP verified as [facility] in [place] & wanted to speak with real estate underwriter in absence of pt, informed family that real estate underwriter would be happy to speak with them in pt room but could not discuss in [place] or without pt permission. Tasked Transition Center to send referrals to: 1. [facility]. [facility]. [facility]; await acceptance. Plan to prevent readmission is for pt to DC to SNF, follow DC instructions including medication compliance and to reach out to health care team as needed. Care Navigation will continue to follow patient progress to determine appropriate safe care transition needs. DISCHARGE PLAN: SNF if able to get insurance to approval, pt was cut on Saturday. * PT/OT/HAT PRESSER - Lupe Wakefield PT - 05/03/2025 8:38 AM EDT Physical Therapy PT Type of Visit: Medical deferral Reason For Medical Deferral: Lab results Lab Results: Low hemoglobin Hemoglobin levels indicate only essential mobility appropriate. No orders for blood transfusion at this time. PT will continue to follow this patient and perform evaluation when able. Thank you for this referral. * Plan of Care - Caridad Mccormick RN - 05/03/2025 8:10 AM EDT Problem: Pain Goal: Patient goal is pain score less than 4, able to rest, and participant in treatment plan as appropriate Description: INTERVENTIONS: 1. Encourage patient or legal arborist representative to report early pain and ask for pain medicine when needed 2. Assess pain using appropriate pain scale and include the scale used when documenting 3. Administer analgesics based on type and severity of pain and evaluate response within appropriate time frame 4. Implement non-pharmacological measures as appropriate and evaluate response 5. Consider cultural and social influences on pain and pain management 6. Notify LIP if interventions ineffective or patient reports new pain 7. Monitor vital signs including pulse ox, end-tidal CO2 based on pain intervention 8. Reassess pain per policy 9. Teach patient or legal arborist representative interventions for comforting Outcome: Progressing Note: Evaluation of progress towards goal: Denied pain at present Problem: Safety Goal: Patient will be injury free during hospitalization Description: INTERVENTIONS: 1. Assess patient's risk for falls and implement fall prevention plan of care per policy 2. Provide and maintain a safe environment 3. Proper use of double Identifiers 4. Medication administration using the 5 rights 5. Hand hygiene 6. Specimens are labeled at the bedside 7. Instruct patient/ patient arborist representative about use of safety devices 8. Include patient/ patient arborist representative in decisions related to safety Outcome: Progressing Note: Evaluation of progress towards goal: PT is free of falls, hourly rounding is completed, area is kept clear. Problem: Infection Goal: Absence of infection during hospitalization Description: INTERVENTIONS 1. Assess and monitor for signs and symptoms of infection. 2. Monitor lab/diagnostic results. 3. Monitor all insertion sites i.e., indwelling lines, tubes and drains. 4. Monitor endotracheal (as able) and nasal secretions for changes in amount and color. 5. Administer medications as ordered. 6. Instruct and encourage patient and family to use good hand hygiene technique. 7. Identify and instruct patient/patient arborist representative in use of appropriate isolation precautionsfor identified infection/symptoms. 8. Provide and discuss with patient/patient arborist representative on educational MDRO sheet. 9. Encourage and monitor nutritional status daily and consult inbound call center representative if indicated. 10. Implement neutropenic guidelines as needed. Outcome: Progressing Note: Evaluation of progress towards goal: Pt assessed and monitored for signs and symptoms of infection, lab and diagnostic results monitored as needed, administer medications as needed. Problem: Knowledge Deficit Goal: Patient/patient arborist representative demonstrates understanding of disease process, treatment plan,medications, and discharge instructions Description: INTERVENTIONS 1. Complete learning assessment and assess knowledge base 2. Provide teaching at level of understanding 3. Provide teaching via preferred learning method(s) Outcome: Progressing Note: Evaluation of progress towards goal: Learning assessment and knowledge base assessed, teaching provided at an understandable level as needed. Problem: Potential for Compromised Skin Integrity Goal: Skin integrity is maintained or improved Description: Patient's goal is: INTERVENTIONS 1. Perform initial skin assessment on admission and as needed 2. Turn patient every 2 hours and PRN 3. Relieve pressure to bony prominences 4. Avoid shearing 5. Keep skin clean and dry 6. Alternate a full bath with partial baths for elderly 7. Apply lotion/moisturizer on skin 8. Monitor patient's hygiene practices 9. Float heels 10. Collaborate with interdisciplinary team and initiate plans and interventions as needed Outcome: Progressing Note: Evaluation of progress towards goal: Pt skin is clean and dry, skin assessed and monitored for new areas, shearing avoided. * Plan of Care - Chey Al RN - 05/03/2025 5:30 AM EDT Problem: Pain Goal: Patient goal is pain score less than 4, able to rest, and participant in treatment plan as appropriate Description: INTERVENTIONS: 1. Encourage patient or legal arborist representative to report early pain and ask for pain medicine when needed 2. Assess pain using appropriate pain scale and include the scale used when documenting 3. Administer analgesics based on type and severity of pain and evaluate response within appropriate time frame 4. Implement non-pharmacological measures as appropriate and evaluate response 5. Consider cultural and social influences on pain and pain management 6. Notify LIP if interventions ineffective or patient reports new pain 7. Monitor vital signs including pulse ox, end-tidal CO2 based on pain intervention 8. Reassess pain per policy 9. Teach patient or legal arborist representative interventions for comforting Outcome: Progressing Note: Evaluation of progress towards goal: Pt able to report pain according to 0/10 pain scale. Medicating patient for pain per orders. Problem: Safety Goal: Patient will be injury free during hospitalization Description: INTERVENTIONS: 1. Assess patient's risk for falls and implement fall prevention plan of care per policy 2. Provide and maintain a safe environment 3. Proper use of double Identifiers 4. Medication administration using the 5 rights 5. Hand hygiene 6. Specimens are labeled at the bedside 7. Instruct patient/ patient arborist representative about use of safety devices 8. Include patient/ patient arborist representative in decisions related to safety Outcome: Progressing Note: Evaluation of progress towards goal: Pt's risk for falls assessed and fall prevention implemented as needed, safe environment provided and maintained, hand hygiene completed. Problem: Infection Goal: Absence of infection during hospitalization Description: INTERVENTIONS 1. Assess and monitor for signs and symptoms of infection. 2. Monitor lab/diagnostic results. 3. Monitor all insertion sites i.e., indwelling lines, tubes and drains. 4. Monitor endotracheal (as able) and nasal secretions for changes in amount and color. 5. Administer medications as ordered. 6. Instruct and encourage patient and family to use good hand hygiene technique. 7. Identify and instruct patient/patient arborist representative in use of appropriate isolation precautionsfor identified infection/symptoms. 8. Provide and discuss with patient/patient arborist representative on educational MDRO sheet. 9. Encourage and monitor nutritional status daily and consult inbound call center representative if indicated. 10. Implement neutropenic guidelines as needed. Outcome: Progressing Note: Evaluation of progress towards goal: Patient VS WNL, remains afebrile for shift. Continue to monitor. documented in this encounter Plan of Treatment Upcoming Encounters Date Type Department Care Team (Late st Contact Info) Description 05/21/2025 9:30 AM EDT Hospital Encounter [facility] - Pet Imaging [address] [place] [phone] 05/25/2025 10:15 AM EDT Office Visit [facility] [address] [place] [phone] Kelvin Myles MD [address] [place] [address] 06/03/2025 11:15 AM EDT Office Visit [facility] - Medical Oncology [address] [place] [phone] Rowdy Riley MD [address] [place] [address] [address] [place] [id number] 07/29/2025 3:30 PM EDT Office Visit [facility] Department of [facility] [phone] [phone] Janice Bhat APRN-ACADEMIC AFFAIRS MANAGER [phone] [phone] 07/30/2025 2:30 PM EDT Office Visit [facility] - Medical Oncology [address] [place] [phone] Rowdy Riley MD [address] [facility] [address] [place] [phone] Scheduled Orders Name Type Priority Associated Diagnoses Order Schedule CBC Lab Routine Acute upper GI bleed Expected: 05/14/2025 (Approximate), Expires: 05/07/2026 Comprehensive metabolic panel Lab Routine Acute upper GI bleed Expected: 05/14/2025 (Approximate), Expires: 05/07/2026 Fingerstick glucose checks Point of Care Testing Routine Type 2 diabetes mellitus with diabetic polyneuropathy, with long-term current use of insulin ([facility]) Ordered: 05/11/2025 Scheduled Referrals Name Type Priority Associated Diagnoses Orde r Schedule Ambulatory referral to General Surgery Outpatient Referral Routine Acute upper GI bleed 1 Occurrences starting 05/07/2025 until 05/07/2026 Ambulatory referral to Urology Outpatient Referral Routine Urinary retention 1 Occurrences starting 05/07/2025 until 05/07/2026 [facility] [place], [place] Outpatient Referral Routine Paroxysmal atrial fibrillation ([facility]) ASCVD (arteriosclerotic cardiovascular disease) 1 Occurrences starting 05/11/2025 until 05/10/2026 Referral to Physical Therapy Outpatient Referral Routine Polyneuropathy Ordered: 05/11/2025 Referral to Occupational Therapy Outpatient Referral Routine Polyneuropathy Ordered: 05/11/2025 Referral to Nursing Care Outpatient Referral Routine Urinary retention Type 2 diabetes mellitus with diabetic polyneuropathy, with long-term current use of insulin ([facility]) Ordered: 05/11/2025 documented as of this encounter Goals Goal Patient Goal Type Associated Problems Recent Progress Patient-Stated? Author SNF General Yes Jeaneth Markham LSW Note: Evaluation of progress towards goal: will need PT/OT evaluations to assist with determining needed DC LOC documented as of this encounter Procedures Procedure Name Priority Date/Time Associated Diagnosis Comments BEDSIDE GLUCOSE Routine 05/11/2025 11:49 AM EDT VASC VENOUS DUPLEX LOWER BILATERAL Routine 05/11/2025 10:17 AM EDT BEDSIDE GLUCOSE Routine 05/11/2025 8:44 AM EDT CBC WITH AUTO DIFFERENTIAL Routine 05/11 4:37 AM EDT HEPARIN ANTI XA, UNFRACTIONATED Routine 05/11/2025 4:37 AM EDT MAGNESIUM Routine 05/11/2025 4:37 AM EDT COMPREHENSIVE METABOLIC PANEL Routine 4:37 AM EDT BEDSIDE GLUCOSE Routine 05/10/2025 9:22 PM EDT BEDSIDE GLUCOSE Routine 05/10/2025 5:57 PM EDT MAGNESIUM Routine 05/10/2025 4:00 PM EDT BEDSIDE GLUCOSE Routine 05/10/2025 11:40 AM EDT CBC WITH AUTO DIFFERENTIAL Routine 05/10 5:32 AM EDT HEPARIN ANTI XA, UNFRACTIONATED Routine 05/10/2025 5:32 AM EDT B-TYPE NATRIURETIC PEPTIDE Routine 05/10 5:32 AM EDT MAGNESIUM Routine 05/10/2025 5:32 AM EDT COMPREHENSIVE METABOLIC PANEL Routine 5:32 AM EDT BEDSIDE GLUCOSE Routine 05/09/2025 8:51 PM EDT BEDSIDE GLUCOSE Routine 05/09/2025 4:34 PM EDT BEDSIDE GLUCOSE Routine 05/09/2025 11:07 AM EDT MAGNESIUM Routine 05/09/2025 11:03 AM EDT BEDSIDE GLUCOSE Routine 05/09/2025 7:47 AM EDT CBC WITH AUTO DIFFERENTIAL Routine 05/09 2:31 AM EDT HEPARIN ANTI XA, UNFRACTIONATED Routine 05/09/2025 2:31 AM EDT MAGNESIUM Routine 05/09/2025 2:31 AM EDT COMPREHENSIVE METABOLIC PANEL Routine 2:31 AM EDT BEDSIDE GLUCOSE Routine 05/08/2025 9:06 PM EDT HEPARIN ANTI XA, UNFRACTIONATED Routine 05/08/2025 7:40 PM EDT BEDSIDE GLUCOSE Routine 05/08/2025 4:18 PM EDT PROTIME & INR Routine 05/08/2025 12:35 PM EDT BEDSIDE GLUCOSE Routine 05/08/2025 12:00 PM EDT EXTRA TUBES LAVENDER TOP Routine 025 11:08 AM EDT EXTRA TUBES PST TOP Routine 05/08/2025 11:08 AM EDT EXTRA TUBES Routine 05/08/2025 11:08 AM EDT APTT Routine 05/08/2025 11:08 AM EDT BEDSIDE GLUCOSE Routine 05/08/2025 7:51 AM EDT CBC WITH AUTO DIFFERENTIAL Routine 05/08 5:17 AM EDT MAGNESIUM Routine 05/08/2025 5:17 AM EDT COMPREHENSIVE METABOLIC PANEL Routine 5:17 AM EDT BEDSIDE GLUCOSE Routine 05/07/2025 8:48 PM EDT BEDSIDE GLUCOSE Routine 05/07/2025 4:56 PM EDT BEDSIDE GLUCOSE Routine 05/07/2025 1:12 PM EDT PROVATION COLONOSCOPY Routine 05/07/2025 12:10 PM EDT SURGICAL PATHOLOGY Routine 05/07/2025 12:05 PM EDT COLONOSCOPY DIAGNOSTIC / SCREENING 05/07/2025 11:49 AM EDT Anemia COLONOSCOPY 05/07/2025 11:45 AM EDT EXTRA TUBES BLUE TOP Routine 05/07/2025 5:32 AM EDT EXTRA TUBES Routine 05/07/2025 5:32 AM EDT CBC WITH AUTO DIFFERENTIAL Routine 05/07 5:32 AM EDT MAGNESIUM Routine 05/07/2025 5:32 AM EDT COMPREHENSIVE METABOLIC PANEL Routine 5:32 AM EDT BEDSIDE GLUCOSE Routine 05/06/2025 10:15 PM EDT BEDSIDE GLUCOSE Routine 05/06/2025 5:01 PM EDT BEDSIDE GLUCOSE Routine 05/06/2025 12:49 PM EDT CBC WITH AUTO DIFFERENTIAL Routine 05/06 5:33 AM EDT MAGNESIUM Routine 05/06/2025 5:33 AM EDT COMPREHENSIVE METABOLIC PANEL Routine 5:33 AM EDT EXTRA TUBES BLUE TOP Routine 05/06/2025 5:32 AM EDT EXTRA TUBES Routine 05/06/2025 5:32 AM EDT HEMOGLOBIN AND HEMATOCRIT, BLOOD Routine 05/05/2025 9:50 PM EDT BEDSIDE GLUCOSE Routine 05/05/2025 8:52 PM EDT POTASSIUM Routine 05/05/2025 5:07 PM EDT BEDSIDE GLUCOSE Routine 05/05/2025 4:53 PM EDT SURGICAL PATHOLOGY Routine 05/05/2025 2:11 PM EDT PROVATION EGD Routine 05/05/2025 2:01 PM EDT HI ESOPHAGOGASTRODUODENOSCOP Y TRANSORAL DIAGNOSTIC 05/05/2025 2:00 PM EDT anemia CHASE-CAIN VIRUS DNA, DETECT/QUANT, P Routine 05/05/2025 1:03 PM EDT CMV DNA DETECT/QUANT, P Routine 05/05/20 1:03 PM EDT HIV 1&2 AB/AG SCREEN (P24 AG) Routine 1:03 PM EDT HEMOGLOBIN AND HEMATOCRIT, BLOOD Routine 05/05/2025 1:03 PM EDT EGD 05/05/2025 12:18 PM EDT BEDSIDE GLUCOSE Routine 05/05/2025 11:56 AM EDT US ABDOMEN LMTD Routine 05/05/2025 11:51 AM EDT PROCALCITONIN Add-On 05/05/2025 6:01 AM EDT CBC WITH AUTO DIFFERENTIAL Routine 05/05 6:01 AM EDT MAGNESIUM Routine 05/05/2025 6:01 AM EDT COMPREHENSIVE METABOLIC PANEL Routine 6:01 AM EDT EXTRA TUBES BLUE TOP Routine 05/05/2025 6:00 AM EDT EXTRA TUBES Routine 05/05/2025 6:00 AM EDT HEMOGLOBIN AND HEMATOCRIT, BLOOD Routine 05/04/2025 9:28 PM EDT MAGNESIUM Routine 05/04/2025 9:28 PM EDT BEDSIDE GLUCOSE Routine 05/04/2025 8:38 PM EDT BEDSIDE GLUCOSE Routine 05/04/2025 4:35 PM EDT HEMOGLOBIN AND HEMATOCRIT, BLOOD Routine 05/04/2025 1:13 PM EDT MAGNESIUM Routine 05/04/2025 1:13 PM EDT BEDSIDE GLUCOSE Routine 05/04/2025 11:54 AM EDT PROCALCITONIN Add-On 05/04/2025 5:37 AM EDT CBC WITH AUTO DIFFERENTIAL Routine 05/04 5:37 AM EDT MAGNESIUM Routine 05/04/2025 5:37 AM EDT COMPREHENSIVE METABOLIC PANEL Routine 5:37 AM EDT HEMOGLOBIN AND HEMATOCRIT, BLOOD Routine 05/03/2025 9:30 PM EDT BEDSIDE GLUCOSE Routine 05/03/2025 8:23 PM EDT VAGINITIS PANEL PCR Routine 05/03/2025 6:27 PM EDT BEDSIDE GLUCOSE Routine 05/03/2025 4:02 PM EDT HEMOGLOBIN AND HEMATOCRIT, BLOOD Routine 05/03/2025 3:34 PM EDT SODIUM, URINE, RANDOM Routine 05/03/2025 12:40 PM EDT OSMOLALITY, URINE Routine 05/03/2025 12:40 PM EDT URINALYSIS Routine 05/03/2025 12:40 PM EDT US PELVIC COMPLETE Routine 05/03/2025 12:30 PM EDT TRANSFUSE RED BLOOD CELLS Routine 2024 12:29 PM EDT BEDSIDE GLUCOSE Routine 05/03/2025 11:59 AM EDT CROSSMATCH RBC Routine 05/03/2025 9:19 AM EDT TYPE AND SCREEN Routine 05/03/2025 8:44 AM EDT PROCALCITONIN Add-On 05/03/2025 4:14 AM EDT CBC WITH AUTO DIFFERENTIAL Routine 05/03 4:14 AM EDT HEPATITIS PANEL, ACUTE Add-On 4:14 AM EDT C-REACTIVE PROTEIN Add-On 05/03/2025 4:14 AM EDT OSMOLALITY Add-On 05/03/2025 4:14 AM EDT MAGNESIUM Routine 05/03/2025 4:14 AM EDT COMPREHENSIVE METABOLIC PANEL Routine 4:14 AM EDT BEDSIDE GLUCOSE Routine 05/03/2025 1:[address] ABDOMEN AND PELVIS WO CONT STAT 10:48 PM EDT EXTRA TUBES BLUE TOP Routine 05/02/2025 9:06 PM EDT EXTRA TUBES Routine 05/02/2025 9:06 PM EDT CBC WITH AUTO DIFFERENTIAL STAT 05/02 9:06 PM EDT MAGNESIUM STAT 05/02/2025 9:06 PM EDT COMPREHENSIVE METABOLIC PANEL STAT 9:06 PM EDT LACTATE W/ REFLEX STAT 05/02/2025 9:[address] BRAIN WO CONT STAT 05/02/2025 8:47 PM EDT XR CHEST 1 VW STAT 05/02/2025 8:47 PM EDT NURSE FECAL OB Routine 05/02/2025 8:28 PM EDT ECG 12-LEAD STAT 05/02/2025 8:20 PM EDT PM ED CRITICAL CARE Routine 05/02/2025 8:12 PM EDT documented in this encounter Results * (ABNORMAL) Bedside Glucose *Place/Obtain serum glucose if >500 per glucometer. (05/11/2025 11:49AM EDT) Bedside Glucose (POC) 208(H) 65 - 99 mg/dL 05/11/2025 11:54 AM EDT [facility] arterial/capilla ry 05/11/2025 11:49 AM EDT 05/11/2025 11:54 AM EDT us Wesly Morse MD POINT OF CARE TEST ORDERAB LES Final Result [facility] [address] [place] [address], [place] * Vas venous duplex lwr bilateral (05/11/2025 10:17 AM EDT) Anatomical Region Laterality Modality Vascular Bilateral Ultrasound 05/11/2025 10:2 2 AM EDT Narrative 05/11/2025 4:06 PM EDT Right: Portable lower extremity deep vein thrombosis (DVT) exam performed. Common femoral, femoral, popliteal and deep calf muscle veins are compressible without intraluminal content. Spontaneous, common femoral, femoral and popliteal spectral Doppler signals. Great saphenous superficial vein is compressible in the thigh. Left: Portable lower extremity deep vein thrombosis (DVT) exam performed. Common femoral, femoral, popliteal and deep calf muscle veins are compressible without intraluminal content. Spontaneous, common femoral, femoral and popliteal spectral Doppler signals. Great saphenous superficial vein is compressible in the thigh. General: In-patient, bedside examination. Conclusions: BILATERAL:NO EVIDENCE of deep vein thrombosis of the lower extremity as stated above. No evidence of superficial vein thrombosis in the great saphenous vein. Procedure Note Walker Monson MD - 05/11/2025 Right: Portable lower extremity deep vein thrombosis (DVT) exam performed.Common femoral, femoral, popliteal and deep calf muscle veins arecompressible without intraluminal content. Spontaneous, common femoral,femoral and popliteal spectral Doppler signals. Great saphenous superficial vein is compressible in the thigh. Left: Portable lower extremity deep vein thrombosis (DVT) exam performed.Common femoral, femoral, popliteal and deep calf muscle veins arecompressible without intraluminal content. Spontaneous, common femoral,femoral and popliteal spectral Doppler signals. Great saphenous superficial vein is compressible in the thigh. General: In-patient, bedside examination. Conclusions: BILATERAL:NO EVIDENCE of deep vein thrombosis of the lowerextremity as stated above. No evidence of superficial vein thrombosis inthe great saphenous vein. us Bethanie Marquez ESTIMATOR AND DRAFTER SUPERVISOR-ACADEMIC AFFAIRS MANAGER CV VASCULAR ORDERABLES Fi nal Result * Bedside Glucose *Place/Obtain serum glucose if >500 per glucometer. (05/11/2025 8:44 AM EDT) Bedside Glucose (POC) 98 65 - 99 mg/dL 05/11/2025 8:48 AM EDT [facility] arterial/capilla ry 05/11/2025 8:44 AM EDT 05/11/2025 8:48 AM EDT us Wesly Morse MD POINT OF CARE TEST ORDERAB LES Final Result [facility] [address] [place] [address], [place] * (ABNORMAL) CBC auto differential (05/11/2025 4:37 AM EDT) WBC 3.7(L) 4 - 11 x10E9/L 05/11/2025 5:00 AM EDT [facility] RBC Count 2.72(L) 3.8 - 5.2 X10E12/L 05/11/2025 5:00 AM EDT [facility] Hemoglobin 7.9(L) 11.7 - 15.5 g/dL 05/11/2025 5:00 AM EDT [facility] Hematocrit 23.6(L) 35 - 47 % 05/11/2025 5:00 AM EDT [facility] MCV 87 80 - 100 fL 05/11/2025 5:00 AM EDT [facility] MCH 29.2 27 - 34 pg 05/11/2025 5:00 AM EDT [facility] MCHC 33.6 32 - 36 g/dL 05/11/2025 5:00 AM EDT [facility] RDW 19.6(H) 11.5 - 15 % 05/11/2025 5:00 AM EDT [facility] Platelet Count 209 150 - 450 X10E9/L 05/11/2025 5:00 AM EDT [facility] MPV 9.8 7 - 12 fL 05/11/2025 5:00 AM EDT [facility] Neutrophils % 54.9 % 05/11/2025 5:00 AM EDT [facility] Lymphocytes % 31.1 % 05/11/2025 5:00 AM EDT [facility] Monocytes % 10.7 % 05/11/2025 5:00 AM EDT [facility] Eosinophils % 2.2 % 05/11/2025 5:00 AM EDT [facility] Basophils % 1.1 % 05/11/2025 5:00 AM EDT [facility] Neutrophils Absolute (A) 2.0 1.5 - 6.6 10*3/uL 05/11/2025 5:00 AM EDT [facility] Lymphocytes Absolute 1.1 1.0 - 3.5 10*3/uL 05/11/2025 5:00 AM EDT [facility] Monocytes Absolute 0.4 0.0 - 0.9 10*3/uL 05/11/2025 5:00 AM EDT [facility] Eosinophils Absolute 0.1 0.0 - 0.4 10*3/uL 05/11/2025 5:00 AM EDT [facility] Basophils Absolute 0.0 0.0 - 0.2 10*3/uL 05/11/2025 5:00 AM EDT [facility] Differential Type AUTOMATED DIFFERENTIAL 05/11/2025 5:00 AM EDT [facility] Blood Venous blood / Unknown Venipuncture / Unknown 05/11/2025 4:37 AM EDT 05/11/2025 4:45 AM EDT us Luigi Reese ESTIMATOR AND DRAFTER SUPERVISOR-ACADEMIC AFFAIRS MANAGER LAB BLOOD ORDERABLES Fin al Result [facility] [address] [place] [address], [place] * Magnesium (05/11/2025 4:37 AM EDT) MAGNESIUM 2.0 1.8 - 2.6 mg/dL 05/11/2025 5:06 AM EDT [facility] Blood Venous blood / Unknown Venipuncture / Unknown 05/11/2025 4:37 AM EDT 05/11/2025 4:45 AM EDT us Luigi Reese ESTIMATOR AND DRAFTER SUPERVISOR-ACADEMIC AFFAIRS MANAGER LAB BLOOD ORDERABLES Fin al Result [facility] [address] [place] [address], [place] * (ABNORMAL) Comprehensive metabolic panel (05/11/2025 4:37 AM EDT) SODIUM 133(L) 134 - 146 mmol/L 05/11/2025 5:06 AM EDT [facility] POTASSIUM 4.5 3.5 - 5.0 mmol/L 05/11/2025 5:06 AM EDT [facility] CHLORIDE 101 98 - 109 mmol/L 05/11/2025 5:06 AM EDT [facility] CARBON DIOXIDE 25 22 - 32 mmol/L 05/11/2025 5:06 AM EDT [facility] ANION GAP 7 5 - 15 mmol/L 05/11/2025 5:06 AM EDT [facility] BLOOD UREA NITROGEN 34(H) 5 - 27 mg/dL 05/11/2025 5:06 AM EDT [facility] CREATININE 2.02(H) 0.40 - 1.00 mg/dL 05/11/2025 5:06 AM EDT [facility] Comment:METHOD TRACEABLE TO IDMS STANDARD GLUCOSE 110(H) 65 - 99 mg/dL 05/11/2025 5:06 AM EDT [facility] CALCIUM 8.6 8.5 - 10.5 mg/dL 05/11/2025 5:06 AM EDT [facility] TOTAL PROTEIN 4.9(L) 6.0 - 8.0 g/dL 05/11/2025 5:06 AM EDT [facility] ALBUMIN 2.7(L) 3.2 - 5.3 g/dL 05/11/2025 5:06 AM EDT [facility] ALKALINE PHOSPHATASE 120 39 - 130 U/L 05/11/2025 5:06 AM EDT [facility] AST 60(H) <=41 U/L 05/11/2025 5:06 AM EDT [facility] ALT 62(H) <=31 U/L 05/11/2025 5:06 AM EDT [facility] BILIRUBIN,TOTAL 0.8 0.3 - 1.2 mg/dL 05/11/2025 5:06 AM EDT [facility] EGFR Non-Race Dependent 25(L) >=60 ml/min/1.7 3sq.m 05/11/2025 5:06 AM EDT [facility] Comment: eGFR not reported due to non-numeric value for Creatinine. Reported eGFR is based on the CKD-EPI 2020 equation that does not use a race coefficient. Blood Venous blood / Unknown Venipuncture / Unknown 05/11/2025 4:37 AM EDT 05/11/2025 4:45 AM EDT us Luigi Reese ESTIMATOR AND DRAFTER SUPERVISOR-ACADEMIC AFFAIRS MANAGER LAB BLOOD ORDERABLES Fin al Result [facility] [address] [place] [address], * Anti XA unfractionated heparin (05/11/2025 4:37 AM EDT) ANTI XA UFH 0.39 0.30 - 0.70 IU/mL 05/11/2025 5:00 AM EDT [facility] Comment: Optimal time for testing is 6 hrs post dosage This test is specific for monitoring patients on UFH, and is not recommended for use with other Anti-Xa medications. Blood Venous blood / Unknown Venipuncture / Unknown 05/11/2025 4:37 AM EDT 05/11/2025 4:45 AM EDT Wesly Morse MD LAB BLOOD ORDERABLES Final Result [address] [place] [address], [place] * (ABNORMAL) Bedside Glucose *Place/Obtain serum glucose if >500 per glucometer. (05/10/2025 9:22 PM EDT) Bedside Glucose (POC) 135(H) 65 - 99 mg/dL 05/10/2025 9:29 PM EDT [facility] arterial/capilla ry 05/10/2025 9:22 PM EDT 05/10/2025 9:29 PM EDT us Wesly Morse MD POINT OF CARE TEST ORDERAB LES Final Result [address] [place] [address], [place] * (ABNORMAL) Bedside Glucose *Place/Obtain serum glucose if >500 per glucometer. (05/10/2025 5:57 PM EDT) Bedside Glucose (POC) 265(H) 65 - 99 mg/dL 05/10/2025 6:18 PM EDT [facility] arterial/capilla ry 05/10/2025 5:57 PM EDT 05/10/2025 6:18 PM EDT us Wesly Morse MD POINT OF CARE TEST ORDERAB LES Final Result [address] [place] [address], [place] * Magnesium (05/10/2025 4:00 PM EDT) MAGNESIUM 2.3 1.8 - 2.6 mg/dL 05/10/2025 4:32 PM EDT [facility] Blood Venous blood / Unknown Venipuncture / Unknown 05/10/2025 4:00 PM EDT 05/10/2025 4:13 PM EDT us Wesly Morse MD LAB BLOOD ORDERABLES Final Result Performing Organization Address City/[facility]/ZIP Co de Phone Number [address] [place] [address], [place] * (ABNORMAL) Bedside Glucose *Place/Obtain serum glucose if >500 per glucometer. (05/10/2025 11:40AM EDT) Pathologist [facility] Bedside Glucose (POC) 219(H) 65 - 99 mg/dL 05/10/2025 11:48 AM EDT [facility] arterial/capilla ry 05/10/2025 11:40 AM EDT 05/10/2025 11:48 AM EDT us Wesly Morse MD POINT OF CARE TEST ORDERAB LES Final Result Performing Organization Address [facility] Co de Phone Number [address] [place] [address], [place] * (ABNORMAL) B-type natriuretic peptide (05/10/2025 5:32 AM EDT) [facility] BNP 428(H) <=100 pg/mL 05/10/2025 12:41 PM EDT [facility] Blood Venous blood / Unknown Venipuncture / Unknown 05/10/2025 5:32 AM EDT 05/10/2025 5:58 AM EDT us Vandana John APRN-ACADEMIC AFFAIRS MANAGER LAB BLOOD ORDERABLES Final Result Performing Organization Address City/[facility] Co de Phone Number [address] [place] [address], [place] * (ABNORMAL) CBC auto differential (05/10/2025 5:32 AM EDT) WBC 4.5 4 - 11 x10E9/L 05/10/2025 6:11 AM EDT [facility] RBC Count 2.59(L) 3.8 - 5.2 X10E12/L 05/10/2025 6:11 AM EDT [facility] Hemoglobin 7.5(L) 11.7 - 15.5 g/dL 05/10/2025 6:11 AM EDT [facility] Hematocrit 22.5(L) 35 - 47 % 05/10/2025 6:11 AM EDT [facility] MCV 87 80 - 100 fL 05/10/2025 6:11 AM EDT [facility] MCH 29.1 27 - 34 pg 05/10/2025 6:11 AM EDT [facility] MCHC 33.5 32 - 36 g/dL 05/10/2025 6:11 AM EDT [facility] RDW 19.8(H) 11.5 - 15 % 05/10/2025 6:11 AM EDT [facility] Platelet Count 198 150 - 450 X10E9/L 05/10/2025 6:11 AM EDT [facility] MPV 9.9 7 - 12 fL 05/10/2025 6:11 AM EDT [facility] Neutrophils % 56.6 % 05/10/2025 6:11 AM EDT [facility] Lymphocytes % 30.5 % 05/10/2025 6:11 AM EDT [facility] Monocytes % 9.6 % 05/10/2025 6:11 AM EDT [facility] Eosinophils % 2.2 % 05/10/2025 6:11 AM EDT [facility] Basophils % 1.1 % 05/10/2025 6:11 AM EDT [facility] Neutrophils Absolute (A) 2.6 1.5 - 6.6 10*3/uL 05/10/2025 6:11 AM EDT [facility] Lymphocytes Absolute 1.4 1.0 - 3.5 10*3/uL 05/10/2025 6:11 AM EDT [facility] Monocytes Absolute 0.4 0.0 - 0.9 10*3/uL 05/10/2025 6:11 AM EDT [facility] Eosinophils Absolute 0.1 0.0 - 0.4 10*3/uL 05/10/2025 6:11 AM EDT [facility] Basophils Absolute 0.0 0.0 - 0.2 10*3/uL 05/10/2025 6:11 AM EDT [facility] Differential Type AUTOMATED DIFFERENTIAL 05/10/2025 6:11 AM EDT [facility] Blood Venous blood / Unknown Venipuncture / Unknown 05/10/2025 5:32 AM EDT 05/10/2025 5:58 AM EDT Luigi D Krshayzer ESTIMATOR AND DRAFTER SUPERVISOR-ACADEMIC AFFAIRS MANAGER LAB BLOOD ORDERABLES Fin al Result Performing Organization Address City/[facility] Co de Phone Number [address] [place] [address], [place] * Magnesium (05/10/2025 5:32 AM EDT) MAGNESIUM 1.8 1.8 - 2.6 mg/dL 05/10/2025 6:34 AM EDT [facility] Blood Venous blood / Unknown Venipuncture / Unknown 05/10/2025 5:32 AM EDT 05/10/2025 5:58 AM EDT Luigi D Krshayzer ESTIMATOR AND DRAFTER SUPERVISOR-ACADEMIC AFFAIRS MANAGER LAB BLOOD ORDERABLES Fin al Result Performing Organization Address City/[facility] Co de Phone Number [address] [address], [place] * (ABNORMAL) Comprehensive metabolic panel (05/10/2025 5:32 AM EDT) SODIUM 136 134 - 146 mmol/L 05/10/2025 6:34 AM EDT [facility] POTASSIUM 4.6 3.5 - 5.0 mmol/L 05/10/2025 6:34 AM EDT [facility] CHLORIDE 105 98 - 109 mmol/L 05/10/2025 6:34 AM EDT [facility] CARBON DIOXIDE 24 22 - 32 mmol/L 05/10/2025 6:34 AM EDT [facility] ANION GAP 7 5 - 15 mmol/L 05/10/2025 6:34 AM EDT [facility] BLOOD UREA NITROGEN 32(H) 5 - 27 mg/dL 05/10/2025 6:34 AM EDT [facility] CREATININE 1.77(H) 0.40 - 1.00 mg/dL 05/10/2025 6:34 AM EDT [facility] Comment:METHOD TRACEABLE TO IDIN STANDARD GLUCOSE 110(H) 65 - 99 mg/dL 05/10/2025 6:34 AM EDT [facility] CALCIUM 8.6 8.5 - 10.5 mg/dL 05/10/2025 6:34 AM EDT [facility] TOTAL PROTEIN 4.8(L) 6.0 - 8.0 g/dL 05/10/2025 6:34 AM EDT [facility] ALBUMIN 2.4(L) 3.2 - 5.3 g/dL 05/10/2025 6:34 AM EDT [facility] ALKALINE PHOSPHATASE 124 39 - 130 U/L 05/10/2025 6:34 AM EDT [facility] AST 74(H) <=41 U/L 05/10/2025 6:34 AM EDT [facility] ALT 69(H) <=31 U/L 05/10/2025 6:34 AM EDT [facility] BILIRUBIN,TOTAL 0.8 0.3 - 1.2 mg/dL 05/10/2025 6:34 AM EDT [facility] EGFR Non-Race Dependent 29(L) >=60 ml/min/1.7 3sq.m 05/10/2025 6:34 AM EDT [facility] Comment: eGFR not reported due to non-numeric value for Creatinine. Reported eGFR is based on the CKD-EPI 2020 equation that does not use a race coefficient. Blood Venous blood / Unknown Venipuncture / Unknown 05/10/2025 5:32 AM EDT 05/10/2025 5:58 AM EDT Luigi Reese ESTIMATOR AND DRAFTER SUPERVISOR-ACADEMIC AFFAIRS MANAGER LAB BLOOD ORDERABLES Fin al Result Performing Organization Address [facility] Co de Phone Number [address] [place] [address], [place] * Anti XA unfractionated heparin (05/10/2025 5:32 AM EDT) ANTI XA UFH 0.37 0.30 - 0.70 IU/mL 05/10/2025 6:13 AM EDT [facility] Comment: Optimal time for testing is 6 hrs post dosage This test is specific for monitoring patients on UFH, and is not recommended for use with other Anti-Xa medications. Blood Venous blood / Unknown Venipuncture / Unknown 05/10/2025 5:32 AM EDT 05/10/2025 5:58 AM EDT us Laina Rome MD LAB BLOOD ORDERABLES Final Result Performing Organization Address [facility] de Phone Number [address] [place] [address], [place] * (ABNORMAL) Bedside Glucose *Place/Obtain serum glucose if >500 per glucometer. (05/09/2025 8:51 PM EDT) Bedside Glucose (POC) 122(H) 65 - 99 mg/dL 05/09/2025 11:45 PM EDT [facility] arterial/capilla ry 05/09/2025 8:51 PM EDT 05/09/2025 11:44 PM EDT us Laina Rome MD POINT OF CARE TEST ORDERAB LES Final Result [facility] [address] [place] [address] [place] [address], [place] * (ABNORMAL) Bedside Glucose *Place/Obtain serum glucose if >500 per glucometer. (05/09/2025 4:34 PM EDT) Bedside Glucose (POC) 173(H) 65 - 99 mg/dL 05/09/2025 11:44 PM EDT [facility] arterial/capilla ry 05/09/2025 4:34 PM EDT 05/09/2025 11:44 PM EDT us Laina Rome MD POINT OF CARE TEST ORDERAB LES Final Result Performing Organization Address City/[facility]/ZIP Co de Phone Number [address] [place] [address], [place] * (ABNORMAL) Bedside Glucose *Place/Obtain serum glucose if >500 per glucometer. (05/09/2025 11:07AM EDT) Bedside Glucose (POC) 224(H) 65 - 99 mg/dL 05/09/2025 11:45 AM EDT [facility] arterial/capilla ry 05/09/2025 11:07 AM EDT 05/09/2025 11:45 AM EDT us Laina Rome MD POINT OF CARE TEST ORDERAB LES Final Result [address] [place] [address], [place] * Magnesium (05/09/2025 11:03 AM EDT) MAGNESIUM 2.1 1.8 - 2.6 mg/dL 05/09/2025 11:25 AM EDT [facility] Blood Venous blood / Unknown Venipuncture / Unknown 05/09/2025 11:03 AM EDT 05/09/2025 11:06 AM EDT Laina Rome MD LAB BLOOD ORDERABLES Final Result Performing Organization Address City/[facility]/ZIP Co de Phone Number [address] [place] [address], [place] * (ABNORMAL) Bedside Glucose *Place/Obtain serum glucose if >500 per glucometer. (05/09/2025 7:47 AM EDT) Bedside Glucose (POC) 132(H) 65 - 99 mg/dL 05/09/2025 7:48 AM EDT [facility] arterial/capilla ry 05/09/2025 7:47 AM EDT 05/09/2025 7:48 AM EDT Laina Rome MD POINT OF CARE TEST ORDERAB LES Final Result Performing Organization Address City/[facility] Co de Phone Number [address] [place] [address], [place] * (ABNORMAL) CBC auto differential (05/09/2025 2:31 AM EDT) [facility] WBC 4.2 4 - 11 x10E9/L 05/09/2025 2:54 AM EDT [facility] RBC Count 2.72(L) 3.8 - 5.2 X10E12/L 05/09/2025 2:54 AM EDT [facility] Hemoglobin 7.9(L) 11.7 - 15.5 g/dL 05/09/2025 2:54 AM EDT [facility] Hematocrit 23.8(L) 35 - 47 % 05/09/2025 2:54 AM EDT [facility] MCV 88 80 - 100 fL 05/09/2025 2:54 AM EDT [facility] MCH 29.0 27 - 34 pg 05/09/2025 2:54 AM EDT [facility] MCHC 33.2 32 - 36 g/dL 05/09/2025 2:54 AM EDT [facility] RDW 19.7(H) 11.5 - 15 % 05/09/2025 2:54 AM EDT [facility] Platelet Count 195 150 - 450 X10E9/L 05/09/2025 2:54 AM EDT [facility] MPV 9.3 7 - 12 fL 05/09/2025 2:54 AM EDT [facility] Neutrophils % 49.3 % 05/09/2025 2:54 AM EDT [facility] Lymphocytes % 37.3 % 05/09/2025 2:54 AM EDT [facility] Monocytes % 10.4 % 05/09/2025 2:54 AM EDT [facility] Eosinophils % 2.2 % 05/09/2025 2:54 AM EDT [facility] Basophils % 0.8 % 05/09/2025 2:54 AM EDT [facility] Neutrophils Absolute (A) 2.1 1.5 - 6.6 10*3/uL 05/09/2025 2:54 AM EDT [facility] Lymphocytes Absolute 1.6 1.0 - 3.5 10*3/uL 05/09/2025 2:54 AM EDT [facility] Monocytes Absolute 0.4 0.0 - 0.9 10*3/uL 05/09/2025 2:54 AM EDT [facility] Eosinophils Absolute 0.1 0.0 - 0.4 10*3/uL 05/09/2025 2:54 AM EDT [facility] Basophils Absolute 0.0 0.0 - 0.2 10*3/uL 05/09/2025 2:54 AM EDT [facility] Differential Type AUTOMATED DIFFERENTIAL 05/09/2025 2:54 AM EDT [facility] Blood Venous blood / Unknown Venipuncture / Unknown 05/09/2025 2:31 AM EDT 05/09/2025 2:34 AM EDT [facility] [employer] ESTIMATOR AND DRAFTER SUPERVISOR-ACADEMIC AFFAIRS MANAGER LAB BLOOD ORDERABLES Fin al Result Performing Organization Address City/[facility]/ZIP Co de Phone Number [address] [place] [address], [place] * (ABNORMAL) Magnesium (05/09/2025 2:31 AM EDT) MAGNESIUM 1.7(L) 1.8 - 2.6 mg/dL 05/09/2025 2:59 AM EDT [facility] Blood Venous blood / Unknown Venipuncture / Unknown 05/09/2025 2:31 AM EDT 05/09/2025 2:34 AM EDT Luigi Reese ESTIMATOR AND DRAFTER [employer] LAB BLOOD ORDERABLES Fin al Result Performing Organization Address City/[facility] Co de Phone Number [address] [place] [address], [place] * (ABNORMAL) Comprehensive metabolic panel (05/09/2025 2:31 AM EDT) SODIUM 136 134 - 146 mmol/L 05/09/2025 2:59 AM EDT [facility] POTASSIUM 4.6 3.5 - 5.0 mmol/L 05/09/2025 2:59 AM EDT [facility] CHLORIDE 110(H) 98 - 109 mmol/L 05/09/2025 2:59 AM EDT [facility] CARBON DIOXIDE 25 22 - 32 mmol/L 05/09/2025 2:59 AM EDT [facility] ANION GAP 1(L) 5 - 15 mmol/L 05/09/2025 2:59 AM EDT [facility] BLOOD UREA NITROGEN 35(H) 5 - 27 mg/dL 05/09/2025 2:59 AM EDT [facility] CREATININE 1.56(H) 0.40 - 1.00 mg/dL 05/09/2025 2:59 AM EDT [facility] Comment:METHOD TRACEABLE TO IDMS STANDARD GLUCOSE 137(H) 65 - 99 mg/dL 05/09/2025 2:59 AM EDT [facility] CALCIUM 8.4(L) 8.5 - 10.5 mg/dL 05/09/2025 2:59 AM EDT [facility] TOTAL PROTEIN 5.0(L) 6.0 - 8.0 g/dL 05/09/2025 2:59 AM EDT [facility] ALBUMIN 2.6(L) 3.2 - 5.3 g/dL 05/09/2025 2:59 AM EDT [facility] ALKALINE PHOSPHATASE 134(H) 39 - 130 U/L 05/09/2025 2:59 AM EDT [facility] AST 96(H) <=41 U/L 05/09/2025 2:59 AM EDT [facility] ALT 90(H) <=31 U/L 05/09/2025 2:59 AM EDT [facility] BILIRUBIN,TOTAL 0.3 0.3 - 1.2 mg/dL 05/09/2025 2:59 AM EDT [facility] EGFR Non-Race Dependent 34(L) >=60 ml/min/1.7 3sq.m 05/09/2025 2:59 AM EDT [facility] Comment: Reported eGFR is based on the CKD-EPI 2020 equation that does not use a race coefficient. Blood Venous blood / Unknown Venipuncture / Unknown 05/09/2025 2:31 AM EDT 05/09/2025 2:34 AM EDT us Luigi Reese ESTIMATOR AND DRAFTER SUPERVISOR-ACADEMIC AFFAIRS MANAGER LAB BLOOD ORDERABLES Fin al Result [facility] [address] [place] [address], [place] * Anti XA unfractionated heparin (05/09/2025 2:31 AM EDT) ANTI XA UFH 0.39 0.30 - 0.70 IU/mL 05/09/2025 2:55 AM EDT [facility] Comment: Optimal time for testing is 6 hrs post dosage This test is specific for monitoring patients on UFH, and is not recommended for use with other Anti-Xa medications. Blood Venous blood / Unknown Venipuncture / Unknown 05/09/2025 2:31 AM EDT 05/09/2025 2:34 AM EDT us Laina Rome MD LAB BLOOD ORDERABLES Final Result [address] [place] [address], [place] * (ABNORMAL) Bedside Glucose *Place/Obtain serum glucose if >500 per glucometer. (05/08/2025 9:06 PM EDT) [facility] Bedside Glucose (POC) 163(H) 65 - 99 mg/dL 05/08/2025 9:08 PM EDT [facility] arterial/capilla ry 05/08/2025 9:06 PM EDT 05/08/2025 9:08 PM EDT Laina Rome MD POINT OF CARE TEST ORDERAB LES Final Result [address] [place] [address], [place] * Anti XA unfractionated heparin (05/08/2025 7:40 PM EDT) ANTI XA UFH 0.30 0.30 - 0.70 IU/mL 05/08/2025 8:00 PM EDT [facility] Comment: Optimal time for testing is 6 hrs post dosage This test is specific for monitoring patients on UFH, and is not recommended for use with other Anti-Xa medications. Blood Venous blood / Unknown Venipuncture / Unknown 05/08/2025 7:40 PM EDT 05/08/2025 7:43 PM EDT Bethanie Marquez ESTIMATOR AND DRAFTER SUPERVISOR-ACADEMIC AFFAIRS MANAGER LAB BLOOD ORDERABLES Sadaf l Result [address] [place] [address], [place] * (ABNORMAL) Bedside Glucose *Place/Obtain serum glucose if >500 per glucometer. (05/08/2025 4:18 PM EDT) Bedside Glucose (POC) 153(H) 65 - 99 mg/dL 05/08/2025 4:19 PM EDT [facility] arterial/capilla ry 05/08/2025 4:18 PM EDT 05/08/2025 4:19 PM EDT Laina Rome MD POINT OF CARE TEST ORDERAB LES Final Result Performing Organization Address [facility] Co de Phone Number [address] [place] [address], [place] * Protime & INR (05/08/2025 12:35 PM EDT) PROTIME 10.9 9.8 - 13.2 sec 05/08/2025 12:49 PM EDT [facility] INR 0.9 0.9 - 1.2 05/08/2025 12:49 PM EDT [facility] Blood Venous blood / Unknown Venipuncture / Unknown 05/08/2025 12:35 PM EDT 05/08/2025 12:43 PM EDT Bethanie Marquez ESTIMATOR AND DRAFTER SUPERVISOR-ACADEMIC AFFAIRS MANAGER LAB BLOOD ORDERABLES Sadaf l Result [address] [place] [address], [place] * Bedside Glucose *Place/Obtain serum glucose if >500 per glucometer. (05/08/2025 12:00 PM EDT) Bedside Glucose (POC) 91 65 - 99 mg/dL 05/08/2025 12:08 PM EDT [facility] arterial/capilla ry 05/08/2025 12:00 PM EDT 05/08/2025 12:08 PM EDT us Laina Rome MD POINT OF CARE TEST ORDERAB LES Final Result [address] [place] [address], [place] * Lavender Top (05/08/2025 11:08 AM EDT) Extra Tube Auto Resulted 05/08/2025 1:01 PM EDT [facility] Blood Venous blood / Unknown 05/08/2025 11:08 AM EDT 05/08/2025 11:14 AM EDT us Laina Rome MD LAB BLOOD ORDERABLES Final Result Performing Organization Address City/[facility]/ZIP Co de Phone Number [address] [place] [address], [place] * PST TOP (05/08/2025 11:08 AM EDT) Extra Tube Auto Resulted 05/08/2025 1:01 PM EDT [facility] Blood Venous blood / Unknown 05/08/2025 11:08 AM EDT 05/08/2025 11:14 AM EDT us Laina Rome MD LAB BLOOD ORDERABLES Final Result Performing Organization Address City/[facility]/ZIP Co de Phone Number [address] [place] [address], [place] * (ABNORMAL) APTT (05/08/2025 11:08 AM EDT) APTT 25(L) 26 - 37 sec 05/08/2025 11:25 AM EDT [facility] Blood Venous blood / Unknown Venipuncture / Unknown 05/08/2025 11:08 AM EDT 05/08/2025 11:12 AM EDT us Bethanie Marquez ESTIMATOR AND DRAFTER SUPERVISOR-ACADEMIC AFFAIRS MANAGER LAB BLOOD ORDERABLES Sadaf l Result Performing Organization Address City/[facility]/ZIP Co de Phone Number [facility] [address] [place] [address] [place] [address], [place] * Bedside Glucose *Place/Obtain serum glucose if >500 per glucometer. (05/08/2025 7:51 AM EDT) Bedside Glucose (POC) 70 65 - 99 mg/dL 05/08/2025 7:54 AM EDT [facility] arterial/capilla ry 05/08/2025 7:51 AM EDT 05/08/2025 7:54 AM EDT us Laina Rome MD POINT OF CARE TEST ORDERAB LES Final Result Performing Organization Address [facility]/ZIP Co de Phone Number [address] [place] [address], [place] * (ABNORMAL) CBC auto differential (05/08/2025 5:17 AM EDT) WBC 4.9 4 - 11 x10E9/L 05/08/2025 5:32 AM EDT [facility] RBC Count 2.63(L) 3.8 - 5.2 X10E12/L 05/08/2025 5:32 AM EDT [facility] Hemoglobin 7.7(L) 11.7 - 15.5 g/dL 05/08/2025 5:32 AM EDT [facility] Hematocrit 23.0(L) 35 - 47 % 05/08/2025 5:32 AM EDT [facility] MCV 88 80 - 100 fL 05/08/2025 5:32 AM EDT [facility] MCH 29.3 27 - 34 pg 05/08/2025 5:32 AM EDT [facility] MCHC 33.5 32 - 36 g/dL 05/08/2025 5:32 AM EDT [facility] RDW 19.2(H) 11.5 - 15 % 05/08/2025 5:32 AM EDT [facility] Platelet Count 192 150 - 450 X10E9/L 05/08/2025 5:32 AM EDT [facility] MPV 9.5 7 - 12 fL 05/08/2025 5:32 AM EDT [facility] Neutrophils % 56.5 % 05/08/2025 5:32 AM EDT [facility] Lymphocytes % 29.7 % 05/08/2025 5:32 AM EDT [facility] Monocytes % 11.3 % 05/08/2025 5:32 AM EDT [facility] Eosinophils % 1.7 % 05/08/2025 5:32 AM EDT [facility] Basophils % 0.8 % 05/08/2025 5:32 AM EDT [facility] Neutrophils Absolute (A) 2.8 1.5 - 6.6 10*3/uL 05/08/2025 5:32 AM EDT [facility] Lymphocytes Absolute 1.5 1.0 - 3.5 10*3/uL 05/08/2025 5:32 AM EDT [facility] Monocytes Absolute 0.6 0.0 - 0.9 10*3/uL 05/08/2025 5:32 AM EDT [facility] Eosinophils Absolute 0.1 0.0 - 0.4 10*3/uL 05/08/2025 5:32 AM EDT [facility] Basophils Absolute 0.0 0.0 - 0.2 10*3/uL 05/08/2025 5:32 AM EDT [facility] Differential Type AUTOMATED DIFFERENTIAL 05/08/2025 5:32 AM EDT [facility] Blood Venous blood / Unknown Venipuncture / Unknown 05/08/2025 5:17 AM EDT 05/08/2025 5:19 AM EDT Luigi Reese ESTIMATOR AND DRAFTER SUPERVISOR-ACADEMIC AFFAIRS MANAGER LAB BLOOD ORDERABLES Fin al Result [address] [place] [address], [place] * Magnesium (05/08/2025 5:17 AM EDT) MAGNESIUM 1.8 1.8 - 2.6 mg/dL 05/08/2025 5:40 AM EDT [facility] Blood Venous blood / Unknown Venipuncture / Unknown 05/08/2025 5:17 AM EDT 05/08/2025 5:19 AM EDT Luigi Reese APRN-ACADEMIC AFFAIRS MANAGER LAB BLOOD ORDERABLES Fin al Result Performing Organization Address City/[facility] Co de Phone Number [address] [place] [address], [place] * (ABNORMAL) Comprehensive metabolic panel (05/08/2025 5:17 AM EDT) SODIUM 136 134 - 146 mmol/L 05/08/2025 5:40 AM EDT [facility] POTASSIUM 4.1 3.5 - 5.0 mmol/L 05/08/2025 5:40 AM EDT [facility] CHLORIDE 107 98 - 109 mmol/L 05/08/2025 5:40 AM EDT [facility] CARBON DIOXIDE 23 22 - 32 mmol/L 05/08/2025 5:40 AM EDT [facility] ANION GAP 6 5 - 15 mmol/L 05/08/2025 5:40 AM EDT [facility] BLOOD UREA NITROGEN 36(H) 5 - 27 mg/dL 05/08/2025 5:40 AM EDT [facility] CREATININE 1.59(H) 0.40 - 1.00 mg/dL 05/08/2025 5:40 AM EDT [facility] Comment:METHOD TRACEABLE TO IDIN STANDARD GLUCOSE 58(L) 65 - 99 mg/dL 05/08/2025 5:40 AM EDT [facility] CALCIUM 8.3(L) 8.5 - 10.5 mg/dL 05/08/2025 5:40 AM EDT [facility] TOTAL PROTEIN 4.8(L) 6.0 - 8.0 g/dL 05/08/2025 5:40 AM EDT [facility] ALBUMIN 2.4(L) 3.2 - 5.3 g/dL 05/08/2025 5:40 AM EDT [facility] ALKALINE PHOSPHATASE 108 39 - 130 U/L 05/08/2025 5:40 AM EDT [facility] AST 126(H) <=41 U/L 05/08/2025 5:40 AM EDT [facility] ALT 100(H) <=31 U/L 05/08/2025 5:40 AM EDT [facility] BILIRUBIN,TOTAL 0.6 0.3 - 1.2 mg/dL 05/08/2025 5:40 AM EDT [facility] EGFR Non-Race Dependent 33(L) >=60 ml/min/1.7 3sq.m 05/08/2025 5:40 AM EDT [facility] Comment: eGFR not reported due to non-numeric value for Creatinine. Reported eGFR is based on the CKD-EPI 2020 equation that does not use a race coefficient. Blood Venous blood / Unknown Venipuncture / Unknown 05/08/2025 5:17 AM EDT 05/08/2025 5:19 AM EDT Luigi Reese ESTIMATOR AND DRAFTER SUPERVISOR-ACADEMIC AFFAIRS MANAGER LAB BLOOD ORDERABLES Fin al Result [address] [place] [address], [place] * (ABNORMAL) Bedside Glucose *Place/Obtain serum glucose if >500 per glucometer. (05/07/2025 8:48 PM EDT) Bedside Glucose (POC) 186(H) 65 - 99 mg/dL 05/07/2025 8:53 PM EDT [facility] arterial/capilla ry 05/07/2025 8:48 PM EDT 05/07/2025 8:53 PM EDT Laina Rome MD POINT OF CARE TEST ORDERAB LES Final Result Performing Organization Address City/[facility]/ZIP Co de Phone Number [address] [place] [address], [place] * (ABNORMAL) Bedside Glucose *Place/Obtain serum glucose if >500 per glucometer. (05/07/2025 4:56 PM EDT) Bedside Glucose (POC) 246(H) 65 - 99 mg/dL 05/07/2025 4:57 PM EDT [facility] arterial/capilla ry 05/07/2025 4:56 PM EDT 05/07/2025 4:57 PM EDT us Laina Rome MD POINT OF CARE TEST ORDERAB LES Final Result [address] [place] [address], [place] * (ABNORMAL) Bedside Glucose *Place/Obtain serum glucose if >500 per glucometer. (05/07/2025 1:12 PM EDT) Bedside Glucose (POC) 105(H) 65 - 99 mg/dL 05/07/2025 1:16 PM EDT [facility] arterial/capilla ry 05/07/2025 1:12 PM EDT 05/07/2025 1:16 PM EDT us Laina Rome MD POINT OF CARE TEST ORDERAB LES Final Result [facility] [address] [place] [address], * Colonoscopy Report (05/07/2025 12:10 PM EDT) Narrative SYSTEMGENERATED, DOCUMENTATION - 05/07/2025 12:10 PM EDT This order has been auto-finalized for image and report archival in PACs. *For full report details, please reach out to your physician. This image is visible to you in MyChart.* us Kelvin Myles MD IMG OR IMG ORDERABLES Sadaf l Result * Surgical Pathology (05/07/2025 12:05 PM EDT) Case Report Surgical Pathology Report Case: [id number] Authorizing Provider: Kelvin Myles MD Collected: 05/07/2025 1205 Ordering Location: [facility] Received: 05/07/2025 1603 [facility] Pathologist: Azalia Lam MD Specimen: Colon, sigmoid biopsies 05/13/2025 6:49 PM EDT [facility] Final Diagnosis Sigmoid colon, biopsy: Acute inflammation with extensive ulceration and features consistent with ischemic colitis. 05/13/2025 6:49 PM EDT [facility] at 1848 EDT Comment diagnosis confirmed with pancytokeratin and cytokeratin 20 immunostain. 05/13/2025 6:49 PM EDT [facility] Gross Description Received in formalin labeled PATRIZIA, sigmoid biopsies are two light hopkins feathery soft tissue bits, 0.1 and 0.3 cm. The specimen is filtered and entirely submitted in a single cassette. (1, ns, [id number],m3) DM. 05/13/2025 6:49 PM EDT [facility] Embedded Images 05/13/2025 6:49 PM EDT [facility] Tissue Colon structure / Unknown 05/07/2025 12:05 PM EDT 05/07/2025 4:03 PM EDT Comment:Pre-op diagnosis: Anemia Kelvin Myles MD PATHOLOGY/CYTOLOGY ORDERAB LES Final Result [facility] [address] [place] [address], * Colonoscopy (05/07/2025 11:45 AM EDT) 05/07/2025 11:4 5 AM EDT Narrative PM CARDIOVASCULAR - 05/07/2025 12:13 PM EDT [facility] Patient Name: Irma Caceres Procedure Date No Time: 05/07/2025 CSN : [id number] Date of : 1945 Admit Type: Outpatient Age: 80 Room: [place] [address] Gender: Female Note Status: Finalized Attending MD: Kelvin Myles , , Procedure: Colonoscopy Indications: Melena Providers: Kelvin Myles Medicines: Monitored Anesthesia Care Complications: No immediate complications. Procedure: After I obtained informed consent, the scope was passed under direct vision. Throughout the procedure, the patient's blood pressure, pulse, and oxygen saturations were monitored continuously. The [facility] PCF-H190DL # [id number] PEDIATRIC COLONOSCOPE was introduced through the anus and advanced to the cecum, identified by appendiceal orifice and ileocecal valve. The colonoscopy was performed without difficulty. The patient tolerated the procedure well. The quality of the bowel preparation was good. The ileocecal valve, appendiceal orifice, and rectum were photographed. Findings: Segmental moderate inflammation characterized by congestion (edema), erosions, erythema and mucus was found in the sigmoid colon. Biopsies were taken with a cold forceps for histology. Estimated blood loss was minimal. Scattered diverticula were found in the sigmoid colon. The exam was otherwise without abnormality. Estimated Blood Loss: Estimated blood loss was minimal. Impression: - Segmental moderate inflammation was found in the sigmoid colon secondary to colitis. Biopsied. - Diverticulosis in the sigmoid colon. - The examination was otherwise normal. Recommendation: - Await pathology results. Regular diet. Okay to discharge to [facility] MD Kelvin Gaitan, 05/07/2025 12:13:09 PM This report has been signed electronically.Kelvin Myles Number of Addenda: 0 Note Initiated On: 05/07/2025 11:45 AM Procedure Note Kelvin Myles MD - 05/07/2025 [facility] Patient Name: Irma Caceres Procedure Date No Time: 05/07/2025 CSN : [id number] Date of : 1945 Admit Type: Outpatient Age: 80 Room: [place] [address] Gender: Female Note Status: Finalized Attending MD: Kelvin Myles , , Procedure: Colonoscopy Indications: Melena Providers: Kelvin Myles Medicines: Monitored Anesthesia Care Complications: No immediate complications. Procedure: After I obtained informed consent, the scope was passed under direct vision. Throughout theprocedure, the patient's blood pressure, pulse, and oxygen saturations were monitored continuously. [facility] # [id number] PEDIATRIC COLONOSCOPE was introduced through the anus and advanced to thececum, identified by appendiceal orifice and ileocecalvalve. The colonoscopy was performed without difficulty.The patient tolerated the procedure well. The qualityof the bowel preparation was good. The ileocecalvalve, appendiceal orifice, and rectum werephotographed. Findings: Segmental moderate inflammation characterized by congestion (edema), erosions, erythema and mucus was found in the sigmoid colon. Biopsies were taken with a cold forceps for histology. Estimated blood losswas minimal. Scattered diverticula were found in the sigmoid colon. The exam was otherwise without abnormality. Estimated Blood Loss: Estimated blood loss was minimal. Impression: - Segmental moderate inflammation was found in the sigmoid colon secondary to colitis. Biopsied. - Diverticulosis in the sigmoid colon. - The examination was otherwise normal. Recommendation: - Await pathology results. Regular diet. Okay to discharge to [facility] MD Kelvin Gaitan, 05/07/2025 12:13:09 PM This report has been signed electronically.Kelvin Myles Number of Addenda: 0 Note Initiated On: 05/07/2025 11:45 AM Kelvin Myles MD GI PROCEDURE ORDERABLES Fi nal Result Performing Organization Address City/[facility]/ZIP Co de Phone Number PM CARDIOVASCULAR * Light Blue Top (05/07/2025 5:32 AM EDT) Extra Tube Auto Resulted 05/07/2025 7:01 AM EDT [facility] Blood Venous blood / Unknown 05/07/2025 5:32 AM EDT 05/07/2025 5:45 AM EDT Laina Rome MD LAB BLOOD ORDERABLES Final Result Performing Organization Address [facility] de Phone Number [facility] [address] [place] [address], * (ABNORMAL) CBC auto differential (05/07/2025 5:32 AM EDT) WBC 4.5 4 - 11 x10E9/L 05/07/2025 5:48 AM EDT [facility] RBC Count 2.81(L) 3.8 - 5.2 X10E12/L 05/07/2025 5:48 AM EDT [facility] Hemoglobin 8.2(L) 11.7 - 15.5 g/dL 05/07/2025 5:48 AM EDT [facility] Hematocrit 24.6(L) 35 - 47 % 05/07/2025 5:48 AM EDT [facility] MCV 88 80 - 100 fL 05/07/2025 5:48 AM EDT [facility] MCH 29.3 27 - 34 pg 05/07/2025 5:48 AM EDT [facility] MCHC 33.5 32 - 36 g/dL 05/07/2025 5:48 AM EDT [facility] RDW 19.2(H) 11.5 - 15 % 05/07/2025 5:48 AM EDT [facility] Platelet Count 194 150 - 450 X10E9/L 05/07/2025 5:48 AM EDT [facility] MPV 9.4 7 - 12 fL 05/07/2025 5:48 AM EDT [facility] Neutrophils % 61.4 % 05/07/2025 5:48 AM EDT [facility] Lymphocytes % 27.3 % 05/07/2025 5:48 AM EDT [facility] Monocytes % 8.8 % 05/07/2025 5:48 AM EDT [facility] Eosinophils % 1.8 % 05/07/2025 5:48 AM EDT [facility] Basophils % 0.7 % 05/07/2025 5:48 AM EDT [facility] Neutrophils Absolute (A) 2.8 1.5 - 6.6 10*3/uL 05/07/2025 5:48 AM EDT [facility] Lymphocytes Absolute 1.2 1.0 - 3.5 10*3/uL 05/07/2025 5:48 AM EDT [facility] Monocytes Absolute 0.4 0.0 - 0.9 10*3/uL 05/07/2025 5:48 AM EDT [facility] Eosinophils Absolute 0.1 0.0 - 0.4 10*3/uL 05/07/2025 5:48 AM EDT [facility] Basophils Absolute 0.0 0.0 - 0.2 10*3/uL 05/07/2025 5:48 AM EDT [facility] Differential Type AUTOMATED DIFFERENTIAL 05/07/2025 5:48 AM EDT [facility] Blood Venous blood / Unknown Venipuncture / Unknown 05/07/2025 5:32 AM EDT 05/07/2025 5:41 AM EDT Luigi Reese ESTIMATOR AND DRAFTER SUPERVISOR-ACADEMIC AFFAIRS MANAGER LAB BLOOD ORDERABLES Fin al Result Performing Organization Address City/[facility] Co de Phone Number [address] [place] [address], [place] * Magnesium (05/07/2025 5:32 AM EDT) MAGNESIUM 1.9 1.8 - 2.6 mg/dL 05/07/2025 6:10 AM EDT [facility] Blood Venous blood / Unknown Venipuncture / Unknown 05/07/2025 5:32 AM EDT 05/07/2025 5:41 AM EDT Luigi Reese APRN-ACADEMIC AFFAIRS MANAGER LAB BLOOD ORDERABLES Fin al Result Performing Organization Address [facility] de Phone Number [address] [place] [address], [place] * (ABNORMAL) Comprehensive metabolic panel (05/07/2025 5:32 AM EDT) SODIUM 135 134 - 146 mmol/L 05/07/2025 6:10 AM EDT [facility] POTASSIUM 4.0 3.5 - 5.0 mmol/L 05/07/2025 6:10 AM EDT [facility] CHLORIDE 106 98 - 109 mmol/L 05/07/2025 6:10 AM EDT [facility] CARBON DIOXIDE 23 22 - 32 mmol/L 05/07/2025 6:10 AM EDT [facility] ANION GAP 6 5 - 15 mmol/L 05/07/2025 6:10 AM EDT [facility] BLOOD UREA NITROGEN 44(H) 5 - 27 mg/dL 05/07/2025 6:10 AM EDT [facility] CREATININE 1.65(H) 0.40 - 1.00 mg/dL 05/07/2025 6:10 AM EDT [facility] Comment:METHOD TRACEABLE TO IDMS STANDARD GLUCOSE 119(H) 65 - 99 mg/dL 05/07/2025 6:10 AM EDT [facility] CALCIUM 8.6 8.5 - 10.5 mg/dL 05/07/2025 6:10 AM EDT [facility] TOTAL PROTEIN 5.3(L) 6.0 - 8.0 g/dL 05/07/2025 6:10 AM EDT [facility] ALBUMIN 2.7(L) 3.2 - 5.3 g/dL 05/07/2025 6:10 AM EDT [facility] ALKALINE PHOSPHATASE 119 39 - 130 U/L 05/07/2025 6:10 AM EDT [facility] AST 160(H) <=41 U/L 05/07/2025 6:10 AM EDT [facility] ALT 124(H) <=31 U/L 05/07/2025 6:10 AM EDT [facility] BILIRUBIN,TOTAL 0.9 0.3 - 1.2 mg/dL 05/07/2025 6:10 AM EDT [facility] EGFR Non-Race Dependent 31(L) >=60 ml/min/1.7 3sq.m 05/07/2025 6:10 AM EDT [facility] Comment: eGFR not reported due to non-numeric value for Creatinine. Reported eGFR is based on the CKD-EPI 2020 equation that does not use a race coefficient. Blood Venous blood / Unknown Venipuncture / Unknown 05/07/2025 5:32 AM EDT 05/07/2025 5:41 AM EDT us Luigi Reese ESTIMATOR AND DRAFTER SUPERVISOR-[employer]ADEMIC AFFA[employer] MANAGER LAB BLOOD ORDERABLES Fin al Result [facility] [address] [place] [address], [place] * (ABNORMAL) Bedside Glucose *Place/Obtain serum glucose if >500 per glucometer. (05/06/2025 10:15PM EDT) Bedside Glucose (POC) 122(H) 65 - 99 mg/dL 05/06/2025 10:22 PM EDT [facility] arterial/capilla ry 05/06/2025 10:15 PM EDT 05/06/2025 10:21 PM EDT us Laina Rome MD POINT OF CARE TEST ORDERAB LES Final Result Performing Organization Address City/[facility]/ZIP Co de Phone Number [address] [place] [address], [place] * (ABNORMAL) Bedside Glucose *Place/Obtain serum glucose if >500 per glucometer. (05/06/2025 5:01 PM EDT) Bedside Glucose (POC) 124(H) 65 - 99 mg/dL 05/06/2025 5:04 PM EDT [facility] arterial/capilla ry 05/06/2025 5:01 PM EDT 05/06/2025 5:04 PM EDT us Laina Rome MD POINT OF CARE TEST ORDERAB LES Final Result Performing Organization Address City/[facility]/ZIP Co de Phone Number [address] [place] [address], [place] * Bedside Glucose *Place/Obtain serum glucose if >500 per glucometer. (05/06/2025 12:49 PM EDT) Bedside Glucose (POC) 79 65 - 99 mg/dL 05/06/2025 12:53 PM EDT [facility] arterial/capilla ry 05/06/2025 12:49 PM EDT 05/06/2025 12:53 PM EDT us Laina Rome MD POINT OF CARE TEST ORDERAB LES Final Result [facility] [address] [place] [address], [place] * (ABNORMAL) CBC auto differential (05/06/2025 5:33 AM EDT) WBC 6.8 4 - 11 x10E9/L 05/06/2025 6:25 AM EDT [facility] RBC Count 2.95(L) 3.8 - 5.2 X10E12/L 05/06/2025 6:25 AM EDT [facility] Hemoglobin 8.7(L) 11.7 - 15.5 g/dL 05/06/2025 6:25 AM EDT [facility] Hematocrit 25.8(L) 35 - 47 % 05/06/2025 6:25 AM EDT [facility] MCV 87 80 - 100 fL 05/06/2025 6:25 AM EDT [facility] MCH 29.4 27 - 34 pg 05/06/2025 6:25 AM EDT [facility] MCHC 33.7 32 - 36 g/dL 05/06/2025 6:25 AM EDT [facility] RDW 19.2(H) 11.5 - 15 % 05/06/2025 6:25 AM EDT [facility] Platelet Count 262 150 - 450 X10E9/L 05/06/2025 6:25 AM EDT [facility] MPV 10.4 7 - 12 fL 05/06/2025 6:25 AM EDT [facility] Neutrophils % 67.7 % 05/06/2025 6:25 AM EDT [facility] Lymphocytes % 20.9 % 05/06/2025 6:25 AM EDT [facility] Monocytes % 8.3 % 05/06/2025 6:25 AM EDT [facility] Eosinophils % 2.2 % 05/06/2025 6:25 AM EDT [facility] Basophils % 0.9 % 05/06/2025 6:25 AM EDT [facility] Neutrophils Absolute (A) 4.6 1.5 - 6.6 10*3/uL 05/06/2025 6:25 AM EDT [facility] Lymphocytes Absolute 1.4 1.0 - 3.5 10*3/uL 05/06/2025 6:25 AM EDT [facility] Monocytes Absolute 0.6 0.0 - 0.9 10*3/uL 05/06/2025 6:25 AM EDT [facility] Eosinophils Absolute 0.1 0.0 - 0.4 10*3/uL 05/06/2025 6:25 AM EDT [facility] Basophils Absolute 0.1 0.0 - 0.2 10*3/uL 05/06/2025 6:25 AM EDT [facility] Differential Type AUTOMATED DIFFERENTIAL 05/06/2025 6:25 AM EDT [facility] Blood Venous blood / Unknown Venipuncture / Unknown 05/06/2025 5:33 AM EDT 05/06/2025 6:06 AM EDT us Luigi Reese ESTIMATOR AND DRAFTER SUPERVISOR-ACADEMIC AFFAIRS MANAGER LAB BLOOD ORDERABLES Fin al Result [facility] [address] [place] [address], * Magnesium (05/06/2025 5:33 AM EDT) MAGNESIUM 2.2 1.8 - 2.6 mg/dL 05/06/2025 6:32 AM EDT [facility] Blood Venous blood / Unknown Venipuncture / Unknown 05/06/2025 5:33 AM EDT 05/06/2025 6:06 AM EDT us Luigi Floodzer ESTIMATOR AND DRAFTER SUPERVISOR-ACADEMIC AFFAIRS MANAGER LAB BLOOD ORDERABLES Fin al Result [facility] [address] [place] [address], * (ABNORMAL) Comprehensive metabolic panel (05/06/2025 5:33 AM EDT) SODIUM 133(L) 134 - 146 mmol/L 05/06/2025 6:32 AM EDT [facility] POTASSIUM 4.3 3.5 - 5.0 mmol/L 05/06/2025 6:32 AM EDT [facility] CHLORIDE 102 98 - 109 mmol/L 05/06/2025 6:32 AM EDT [facility] CARBON DIOXIDE 22 22 - 32 mmol/L 05/06/2025 6:32 AM EDT [facility] ANION GAP 9 5 - 15 mmol/L 05/06/2025 6:32 AM EDT [facility] BLOOD UREA NITROGEN 55(H) 5 - 27 mg/dL 05/06/2025 6:32 AM EDT [facility] CREATININE 1.81(H) 0.40 - 1.00 mg/dL 05/06/2025 6:32 AM EDT [facility] Comment:METHOD TRACEABLE TO IDMS STANDARD GLUCOSE 87 65 - 99 mg/dL 05/06/2025 6:32 AM EDT [facility] CALCIUM 8.5 8.5 - 10.5 mg/dL 05/06/2025 6:32 AM EDT [facility] TOTAL PROTEIN 5.6(L) 6.0 - 8.0 g/dL 05/06/2025 6:32 AM EDT [facility] ALBUMIN 2.7(L) 3.2 - 5.3 g/dL 05/06/2025 6:32 AM EDT [facility] ALKALINE PHOSPHATASE 120 39 - 130 U/L 05/06/2025 6:32 AM EDT [facility] AST 202(H) <=41 U/L 05/06/2025 6:32 AM EDT [facility] ALT 140(H) <=31 U/L 05/06/2025 6:32 AM EDT [facility] BILIRUBIN,TOTAL 0.7 0.3 - 1.2 mg/dL 05/06/2025 6:32 AM EDT [facility] EGFR Non-Race Dependent 28(L) >=60 ml/min/1.7 3sq.m 05/06/2025 6:32 AM EDT [facility] Comment: eGFR not reported due to non-numeric value for Creatinine. Reported eGFR is based on the CKD-EPI 2020 equation that does not use a race coefficient. Blood Venous blood / Unknown Venipuncture / Unknown 05/06/2025 5:33 AM EDT 05/06/2025 6:06 AM EDT us Luigi Reese ESTIMATOR AND DRAFTER SUPERVISOR-ACADEMIC AFFAIRS MANAGER LAB BLOOD ORDERABLES Fin al Result Performing Organization Address City/[facility]/ZIP Co de Phone Number [address] [place] [address], [place] * Light Blue Top (05/06/2025 5:32 AM EDT) Extra Tube Auto Resulted 05/06/2025 7:01 AM EDT [facility] Blood Venous blood / Unknown 05/06/2025 5:32 AM EDT 05/06/2025 6:11 AM EDT us Laina Rome MD LAB BLOOD ORDERABLES Final Result [address] [place] [address], [place] * (ABNORMAL) Hemoglobin and hematocrit, blood (05/05/2025 9:50 PM EDT) Hemoglobin 9.0(L) 11.7 - 15.5 g/dL 05/05/2025 9:58 PM EDT [facility] Hematocrit 27.0(L) 35 - 47 % 05/05/2025 9:58 PM EDT [facility] Blood Venous blood / Unknown Venipuncture / Unknown 05/05/2025 9:50 PM EDT 05/05/2025 9:54 PM EDT us Luigi D Aleenaeleanor ESTIMATOR AND DRAFTER SUPERVISOR-ACADEMIC AFFAIRS MANAGER LAB BLOOD ORDERABLES Fin al Result Performing Organization Address City/[facility]/ZIP Co de Phone Number [address] [place] [address], [place] * (ABNORMAL) Bedside Glucose *Place/Obtain serum glucose if >500 per glucometer. (05/05/2025 8:52 PM EDT) Bedside Glucose (POC) 159(H) 65 - 99 mg/dL 05/05/2025 8:57 PM EDT [facility] arterial/capilla ry 05/05/2025 8:52 PM EDT 05/05/2025 8:57 PM EDT us Laina Rome MD POINT OF CARE TEST ORDERAB LES Final Result Performing Organization Address [facility]/ZIP Co de Phone Number [address] [place] [address], [place] * Potassium (05/05/2025 5:07 PM EDT) POTASSIUM 4.8 3.5 - 5.0 mmol/L 05/05/2025 6:07 PM EDT [facility] Blood Venous blood / Unknown Venipuncture / Unknown 05/05/2025 5:07 PM EDT 05/05/2025 5:21 PM EDT us Bethanie Marquez ESTIMATOR AND DRAFTER SUPERVISOR-ACADEMIC AFFAIRS MANAGER LAB BLOOD ORDERABLES Sadaf l Result [address] [place] [address], [place] * (ABNORMAL) Bedside Glucose *Place/Obtain serum glucose if >500 per glucometer. (05/05/2025 4:53 PM EDT) Bedside Glucose (POC) 169(H) 65 - 99 mg/dL 05/05/2025 4:58 PM EDT [facility] arterial/capilla ry 05/05/2025 4:53 PM EDT 05/05/2025 4:58 PM EDT us Laina Rmoe MD POINT OF CARE TEST ORDERAB LES Final Result [facility] [address] 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 05/13/2025 6:28 PM EDT [facility] at 1615 EDT Addendum Immunostaining for HER2/kanika is negative (1+) (only rare tumor cells were available for immunostain). 05/13/2025 6:28 PM EDT [facility] Addendum electronically signed by AZALIA LAM MD on 05/13/2025 at 1827 EDT Gross Description Received in formalin labeled PATRIZIA, biopsy of stomach body necrotic mass are 2 hopkins bits of soft tissue, each 0.2 cm in greatest dimension. Filtered and submitted in a single cassette. (1, ns, [id number], m7) MG 05/13/2025 6:28 PM EDT [facility] Embedded Images 05/13/2025 6:28 PM EDT [facility] Tissue Stomach structure / Unknown 05/05/2025 2:11 PM EDT 05/05/2025 4:10 PM EDT Comment:Pre-op diagnosis: anemia Kelvin Myles MD PATHOLOGY/CYTOLOGY ORDERAB LES Edited Result - Final [facility] [address] [place] [address], [place] [phone] * EGD Report (05/05/2025 2:01 PM EDT) Narrative SYSTEMGENERATED, DOCUMENTATION - 05/05/2025 2:01 PM EDT This order has been auto-finalized for image and report archival in PACs. *For full report details, please reach out to your physician. This image is visible to you in MyChart.* Kelvin Myles MD IMG OR IMG ORDERABLES Sadaf l Result * HIV 1&2 AB/AG Screen (P24 AG) (05/05/2025 1:03 PM EDT) HIV 1 AND 2 AB/AG SCREEN Non-Reacti ve Non-Reacti ve 05/05/2025 6:26 PM EDT [facility] Blood Venous blood / Unknown Venipuncture / Unknown 05/05/2025 1:03 PM EDT 05/05/2025 1:08 PM EDT Narrative [facility] - 05/05/2025 6:26 PM EDT This information has been disclosed to you from confidential records protected from disclosure by state law. You shall make no further disclosure of this information without the specific, written and informed release of the individual to whom it pertains, or as otherwise permitted by state law. A general authorization for the release of medical or other information is not sufficient for the purpose of the release of HIV test results or diagnoses. Bethanie Marquez ESTIMATOR AND DRAFTER SUPER[employer]ORLY[employer] FOR [employer] LAB BLOOD ORDERABLES Sadaf l Result [facility] [address] [place] [address], * CMV DNA Detect/Quant, P (05/05/2025 1:03 PM EDT) [facility] CMV DNA DETECT QUANT Undetected Undetected IU/mL 05/06/2025 3:09 PM EDT [facility] [employer] Comment: Result in log IU/mL is Undetected. ADDITIONAL INFORMATION The quantification range of this assay is 35 to 10,000,000 IU/mL (1.54 log to 7.00 log IU/mL). Testing was performed using the napoleon CMV test ([employer] Test Performed by: [facility] [place] [address] Swaging Machine Adjuster: Elie Rodriguez Ph.D.; CLIA# [id number] Blood Venous blood / Unknown Venipuncture / Unknown 05/05/2025 1:03 PM EDT 05/05/2025 1:08 PM EDT Bethanie Marquez ESTIMATOR AND DRAFTER [employer]PER[employer]OR[employer] LAB BLOOD ORDERABLES Sadaf l Result Performing Organization Address City/[facility]/ZIP Co de Phone Number [facility] [address] [place] [address], * Chase-Cain virus DNA, Detect/Quant, P (05/05/2025 1:03 PM EDT) [facility] EBV DNA DETECT/QUANT Undetected Undetected IU/mL 05/06/2025 8:49 PM EDT [facility] [employer] Comment: Result in log IU/mL is Undetected. ADDITIONAL INFORMATION The quantification range of this assay is 35 to 100,000,000 IU/mL (1.54 log to 8.00 log IU/mL). Testing was performed using the napoleon EBV test ([employer] Test Performed by: [facility] [address] [place] [address] Swaging Machine Adjuster: Elie Rodriguez Ph.D.; CLIA# [id number] Blood Venous blood / Unknown Venipuncture / Unknown 05/05/2025 1:03 PM EDT 05/05/2025 1:08 PM EDT Bethanie Marquez ESTIMATOR AND DRAFTER SUPERVISOR-[facility] LAB BLOOD ORDERABLES Sadaf l Result Performing Organization Address City/[facility]/ZIP Co de Phone Number [facility] [address] [place] [address], [place] * (ABNORMAL) Hemoglobin and hematocrit, blood (05/05/2025 1:03 PM EDT) Pathologist [facility] Hemoglobin 9.2(L) 11.7 - 15.5 g/dL 05/05/2025 1:34 PM EDT [facility] Hematocrit 27.2(L) 35 - 47 % 05/05/2025 1:34 PM EDT [facility] Blood Venous blood / Unknown Venipuncture / Unknown 05/05/2025 1:03 PM EDT 05/05/2025 1:08 PM EDT Luigi Reese ESTIMATOR AND DRAFTER SUPERVISOR-[facility] LAB BLOOD ORDERABLES Fin al Result [facility] [address] [place] [address], [place] * EGD (05/05/2025 12:18 PM EDT) 05/05/2025 12:1 8 PM EDT Narrative PM [facility]ARDI[facility] - 05/05/2025 2:19 PM EDT [facility] Patient Name: Irma Caceres Procedure Date No Time: 05/05/2025 CSN : [id number] Date of : 1945 Admit Type: Outpatient Age: 80 Room: [place] [address] Gender: Female Note Status: Finalized Attending MD: Kelvin Myles , , Procedure: Upper GI endoscopy Indications: Iron deficiency anemia Providers: Kelvin Myles Medicines: Monitored Anesthesia Care Complications: No immediate complications. Procedure: After obtaining informed consent, the endoscope was passed under direct vision. Throughout the procedure, the patient's blood pressure, pulse, and oxygen saturations were monitored continuously. The OLYMPUS GIF-HQ190 #[id number] ADULT GASTROSCOPE was introduced through the mouth, and advanced to the second part of duodenum. The upper GI endoscopy was accomplished without difficulty. The patient tolerated the procedure well. Findings: The examined duodenum was normal. The esophagus was normal. Multiple small fundic gland polyps with no bleeding and stigmata of recent bleeding were found in the gastric body and in the gastric antrum. A medium-sized, fungating, non-circumferential mass with no bleeding and no stigmata of recent bleeding was found in the gastric body. 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 Biopsies were taken with a cold forceps for histology. Estimated Blood Loss: Estimated blood loss was minimal. Impression: - Normal examined duodenum. - Normal esophagus. - Multiple gastric polyps. - Rule out malignancy, gastric tumor in the gastric body. Biopsied. Recommendation: - Await pathology results. - Use Protonix (pantoprazole) 40 mg PO BID. Consider stopping antiplatelet agents and anticoagulation, given anemia and GI bleed. Procedure Code(s): --- Professional --- 87306, Esophagogastroduodenoscopy, flexible, transoral; with biopsy, single or multiple Diagnosis Code(s): --- Professional --- K31.7, Polyp of stomach and duodenum CPT copyright 2022 [employer]. All rights reserved. The codes documented in this report are preliminary and upon it support manager review may be revised to meet current compliance requirements. MD Kelvin Gaitan, 05/05/2025 2:18:29 PM This report has been signed electronically.Kelvin Myles Number of Addenda: 0 Note Initiated On: 05/05/2025 12:18 PM Procedure Note Kelvin Myles MD - 05/05/2025 [facility] Patient Name: Irma Caceres Procedure Date No Time: 05/05/2025 CSN : [id number] Date of : 1945 Admit Type: Outpatient Age: 80 Room: [place] [address] Gender: Female Note Status: Finalized Attending MD: Kelvin Myles , , Procedure: Upper GI endoscopy Indications: Iron deficiency anemia Providers: Kelvin Myles Medicines: Monitored Anesthesia Care Complications: No immediate complications. Procedure: After obtaining informed consent, the endoscope was passed under direct vision. Throughout theprocedure, the patient's blood pressure, pulse, and oxygen saturations were monitored continuously. TheOLYMPUS GIF-HQ190 #[id number] ADULT GASTROSCOPE was introduced through the mouth, and advanced to the second partof duodenum. The upper GI endoscopy was accomplished without difficulty. The patient tolerated the procedure well. Findings: The examined duodenum was normal. The esophagus was normal. Multiple small fundic gland polyps with no bleeding and stigmata of recent bleeding were found in the gastric body and in the gastricantrum. A medium-sized, fungating, non-circumferential mass with no bleedingand no stigmata of recent bleeding was found in the gastric body. Basedon the epicenter of the tumor, this would be consistent with a Siewerttype III lesion: sub-cardial type adenocarcinoma (epicenter of lesion 2-5cm below GEJ). Biopsies were taken with a cold forceps for histology. Estimated Blood Loss: Estimated blood loss was minimal. Impression: - Normal examined duodenum. - Normal esophagus. - Multiple gastric polyps. - Rule out malignancy, gastric tumor in the gastric body. Biopsied. Recommendation: - Await pathology results. - Use Protonix (pantoprazole) 40 mg PO BID. Consider stopping antiplatelet agents and anticoagulation, given anemia and GI bleed. Procedure Code(s): --- Professional --- 61979, Esophagogastroduodenoscopy, flexible, transoral; with biopsy, single or multiple Diagnosis Code(s): --- Professional --- K31.7, Polyp of stomach and duodenum CPT copyright 2022 [employer]. All rights reserved. The codes documented in this report are preliminary and upon it support manager reviewmay be revised to meet current compliance requirements. MD Kelvin Gaitan, 05/05/2025 2:18:29 PM This report has been signed electronically.Kelvin Myles Number of Addenda: 0 Note Initiated On: 05/05/2025 12:18 PM us Kelvin Myles MD GI PROCEDURE ORDERABLES Fi nal Result Performing Organization Address City/[facility]/ZIP Co de Phone Number [facility] * (ABNORMAL) Bedside Glucose *Place/Obtain serum glucose if >500 per glucometer. (05/05/2025 11:56AM EDT) Bedside Glucose (POC) 148(H) 65 - 99 mg/dL 05/05/2025 12:07 PM EDT [facility] arterial/capilla ry 05/05/2025 11:56 AM EDT 05/05/2025 12:07 PM EDT us Laina Rome MD POINT OF CARE TEST ORDERAB LES Final Result Performing Organization Address [facility] Co de Phone Number [facility] [address] [place] [address], [place] * Ultrasound abdomen limited (05/05/2025 11:51 AM EDT) Anatomical Region Laterality Modality Body, Abdomen Ultrasound 05/05/2025 1:43 PM EDT Narrative 05/05/2025 1:44 PM EDT Clinical history: Elevated transaminases Findings: Multiplanar sonography was performed of the right upper quadrant. Comparison: None. * Prior cholecystectomy. * Common bile duct measures: 5.9 mm * No free fluid/ascites * Liver echotexture is echogenic. * Portal vein is patent with hepatopedal flow. * Pancreas obscured by bowel gas. No definite pancreatic ductal dilatation. * No right renal obstruction . Cortical thinning consistent with patient's age. Impression: * Unremarkable right upper quadrant ultrasound Finalized by Duke Bob MD on 05/05/2025 1:44 PM Procedure Note Duke Bob MD - 05/05/2025 Clinical history: Elevated transaminases Findings: Multiplanar sonography was performed of the right upperquadrant. Comparison: None. * Prior cholecystectomy. * Common bile duct measures: 5.9 mm * No free fluid/ascites * Liver echotexture is echogenic. * Portal vein is patent with hepatopedal flow. * Pancreas obscured by bowel gas. No definite pancreatic ductaldilatation. * No right renal obstruction . Cortical thinning consistent withpatient's age. Impression: * Unremarkable right upper quadrant ultrasound Finalized by Duke Bob MD on 05/05/2025 1:44 PM Bethanie Marquez APRN-ACADEMIC AFFAIRS MANAGER IMG US ORDERABLES Final R esult * (ABNORMAL) Procalcitonin (05/05/2025 6:01 AM EDT) Pathologist [facility] PROCALCITONIN 4.03(H) <0.05 ng/mL 05/05/2025 2:10 PM EDT [facility] Blood Venous blood / Unknown Venipuncture / Unknown 05/05/2025 6:01 AM EDT 05/05/2025 6:07 AM EDT Narrative [facility] - 05/05/2025 2:10 PM EDT <0.50 ng/mL - Low risk of severe sepsis and/or septic shock. <2.00 ng/mL - Recommend retesting within 6-24 hours. >2.00 ng/mL - High risk of sepsis and/or septic shock. us Bethanie Marquez APRN-ACADEMIC AFFAIRS MANAGER LAB BLOOD ORDERABLES Sadaf l Result [facility] [address] [place] [address], [place] * (ABNORMAL) CBC auto differential (05/05/2025 6:01 AM EDT) WBC 7.3 4 - 11 x10E9/L 05/05/2025 6:11 AM EDT [facility] RBC Count 3.14(L) 3.8 - 5.2 X10E12/L 05/05/2025 6:11 AM EDT [facility] Hemoglobin 9.2(L) 11.7 - 15.5 g/dL 05/05/2025 6:11 AM EDT [facility] Hematocrit 27.3(L) 35 - 47 % 05/05/2025 6:11 AM EDT [facility] MCV 87 80 - 100 fL 05/05/2025 6:11 AM EDT [facility] MCH 29.2 27 - 34 pg 05/05/2025 6:11 AM EDT [facility] MCHC 33.6 32 - 36 g/dL 05/05/2025 6:11 AM EDT [facility] RDW 19.1(H) 11.5 - 15 % 05/05/2025 6:11 AM EDT [facility] Platelet Count 216 150 - 450 X10E9/L 05/05/2025 6:11 AM EDT [facility] MPV 9.9 7 - 12 fL 05/05/2025 6:11 AM EDT [facility] Neutrophils % 68.8 % 05/05/2025 6:11 AM EDT [facility] Lymphocytes % 19.5 % 05/05/2025 6:11 AM EDT [facility] Monocytes % 8.1 % 05/05/2025 6:11 AM EDT [facility] Eosinophils % 2.5 % 05/05/2025 6:11 AM EDT [facility] Basophils % 1.1 % 05/05/2025 6:11 AM EDT [facility] Neutrophils Absolute (A) 5.0 1.5 - 6.6 10*3/uL 05/05/2025 6:11 AM EDT [facility] Lymphocytes Absolute 1.4 1.0 - 3.5 10*3/uL 05/05/2025 6:11 AM EDT [facility] Monocytes Absolute 0.6 0.0 - 0.9 10*3/uL 05/05/2025 6:11 AM EDT [facility] Eosinophils Absolute 0.2 0.0 - 0.4 10*3/uL 05/05/2025 6:11 AM EDT [facility] Basophils Absolute 0.1 0.0 - 0.2 10*3/uL 05/05/2025 6:11 AM EDT [facility] Differential Type AUTOMATED DIFFERENTIAL 05/05/2025 6:11 AM EDT [facility] Blood Venous blood / Unknown Venipuncture / Unknown 05/05/2025 6:01 AM EDT 05/05/2025 6:07 AM EDT Luigi Floodzer ESTIMATOR AND DRAFTER SUPERVISOR-ACADEMIC AFFAIRS MANAGER LAB BLOOD ORDERABLES Fin al Result Performing Organization Address City/[facility]/ZIP Co de Phone Number [address] [place] [address], [place] * Magnesium (05/05/2025 6:01 AM EDT) MAGNESIUM 2.5 1.8 - 2.6 mg/dL 05/05/2025 6:32 AM EDT [facility] Blood Venous blood / Unknown Venipuncture / Unknown 05/05/2025 6:01 AM EDT 05/05/2025 6:07 AM EDT Luigi D Krshayzer ESTIMATOR AND DRAFTER SUPERVISOR-ACADEMIC AFFAIRS MANAGER LAB BLOOD ORDERABLES Fin al Result [address] [place] [address], [place] * (ABNORMAL) Comprehensive metabolic panel (05/05/2025 6:01 AM EDT) SODIUM 130(L) 134 - 146 mmol/L 05/05/2025 6:32 AM EDT [facility] POTASSIUM 5.2(H) 3.5 - 5.0 mmol/L 05/05/2025 6:32 AM EDT [facility] CHLORIDE 100 98 - 109 mmol/L 05/05/2025 6:32 AM EDT [facility] CARBON DIOXIDE 21(L) 22 - 32 mmol/L 05/05/2025 6:32 AM EDT [facility] ANION GAP 9 5 - 15 mmol/L 05/05/2025 6:32 AM EDT [facility] BLOOD UREA NITROGEN 70(H) 5 - 27 mg/dL 05/05/2025 6:32 AM EDT [facility] CREATININE 2.13(H) 0.40 - 1.00 mg/dL 05/05/2025 6:32 AM EDT [facility] Comment:METHOD TRACEABLE TO IDMS STANDARD GLUCOSE 144(H) 65 - 99 mg/dL 05/05/2025 6:32 AM EDT [facility] CALCIUM 8.8 8.5 - 10.5 mg/dL 05/05/2025 6:32 AM EDT [facility] TOTAL PROTEIN 6.0 6.0 - 8.0 g/dL 05/05/2025 6:32 AM EDT [facility] ALBUMIN 3.1(L) 3.2 - 5.3 g/dL 05/05/2025 6:32 AM EDT [facility] ALKALINE PHOSPHATASE 133(H) 39 - 130 U/L 05/05/2025 6:32 AM EDT [facility] AST 235(H) <=41 U/L 05/05/2025 6:32 AM EDT [facility] ALT 163(H) <=31 U/L 05/05/2025 6:32 AM EDT [facility] BILIRUBIN,TOTAL 0.7 0.3 - 1.2 mg/dL 05/05/2025 6:32 AM EDT [facility] EGFR Non-Race Dependent 23(L) >=60 ml/min/1.7 3sq.m 05/05/2025 6:32 AM EDT [facility] Comment: eGFR not reported due to non-numeric value for Creatinine. Reported eGFR is based on the CKD-EPI 2020 equation that does not use a race coefficient. Blood Venous blood / Unknown Venipuncture / Unknown 05/05/2025 6:01 AM EDT 05/05/2025 6:07 AM EDT us Luigi Reese ESTIMATOR AND DRAFTER SUPERVISOR-ACADEMIC AFFAIRS MANAGER LAB BLOOD ORDERABLES Fin al Result Performing Organization Address City/[facility]/ZIP Co de Phone Number [address] [place] [address], [place] * Light Blue Top (05/05/2025 6:00 AM EDT) Extra Tube Auto Resulted 05/05/2025 7:01 AM EDT [facility] Blood Venous blood / Unknown 05/05/2025 6:00 AM EDT 05/05/2025 6:09 AM EDT us Laina Rome MD LAB BLOOD ORDERABLES Final Result Performing Organization Address [facility] Co de Phone Number [address] [place] [address], [place] * (ABNORMAL) Magnesium (05/04/2025 9:28 PM EDT) MAGNESIUM 2.8(H) 1.8 - 2.6 mg/dL 05/04/2025 9:51 PM EDT [facility] Blood Venous blood / Unknown Venipuncture / Unknown 05/04/2025 9:28 PM EDT 05/04/2025 9:30 PM EDT us Bethanie Marquez ESTIMATOR AND DRAFTER SUPERVISOR-ACADEMIC AFFAIRS MANAGER LAB BLOOD ORDERABLES Sadaf l Result Performing Organization Address City/[facility] Co de Phone Number [address] [place] [address], [place] * (ABNORMAL) Hemoglobin and hematocrit, blood (05/04/2025 9:28 PM EDT) Hemoglobin 8.8(L) 11.7 - 15.5 g/dL 05/04/2025 9:36 PM EDT [facility] Hematocrit 26.4(L) 35 - 47 % 05/04/2025 9:36 PM EDT [facility] Blood Venous blood / Unknown Venipuncture / Unknown 05/04/2025 9:28 PM EDT 05/04/2025 9:30 PM EDT Luigi Reese ESTIMATOR AND DRAFTER SUPERVISOR-ACADEMIC AFFAIRS MANAGER LAB BLOOD ORDERABLES Fin al Result [address] [place] [address], [place] * (ABNORMAL) Bedside Glucose *Place/Obtain serum glucose if >500 per glucometer. (05/04/2025 8:38 PM EDT) Bedside Glucose (POC) 177(H) 65 - 99 mg/dL 05/04/2025 8:39 PM EDT [facility] arterial/capilla ry 05/04/2025 8:38 PM EDT 05/04/2025 8:39 PM EDT Laina Rome MD POINT OF CARE TEST ORDERAB LES Final Result [address] [place] [address], [place] * (ABNORMAL) Bedside Glucose *Place/Obtain serum glucose if >500 per glucometer. (05/04/2025 4:35 PM EDT) Bedside Glucose (POC) 208(H) 65 - 99 mg/dL 05/04/2025 4:50 PM EDT [facility] arterial/capilla ry 05/04/2025 4:35 PM EDT 05/04/2025 4:50 PM EDT us Laina Rome MD POINT OF CARE TEST ORDERAB LES Final Result Performing Organization Address [facility] Co de Phone Number [address] [place] [address], [place] * Magnesium (05/04/2025 1:13 PM EDT) MAGNESIUM 1.8 1.8 - 2.6 mg/dL 05/04/2025 1:40 PM EDT [facility] Blood Venous blood / Unknown Venipuncture / Unknown 05/04/2025 1:13 PM EDT 05/04/2025 1:18 PM EDT Bethanie Marquez ESTIMATOR AND DRAFTER SUPERVISOR-ACADEMIC AFFAIRS MANAGER LAB BLOOD ORDERABLES Sadaf l Result Performing Organization Address [facility] Co de Phone Number [address] [place] [address], [place] * (ABNORMAL) Hemoglobin and hematocrit, blood (05/04/2025 1:13 PM EDT) Hemoglobin 9.1(L) 11.7 - 15.5 g/dL 05/04/2025 1:28 PM EDT [facility] Hematocrit 27.8(L) 35 - 47 % 05/04/2025 1:28 PM EDT [facility] Blood Venous blood / Unknown Venipuncture / Unknown 05/04/2025 1:13 PM EDT 05/04/2025 1:18 PM EDT us Luigi Reese ESTIMATOR AND DRAFTER SUPERVISOR-ACADEMIC AFFAIRS MANAGER LAB BLOOD ORDERABLES Fin al Result Performing Organization Address [facility] Co de Phone Number [address] [place] [address], [place] * (ABNORMAL) Bedside Glucose *Place/Obtain serum glucose if >500 per glucometer. (05/04/2025 11:54AM EDT) Bedside Glucose (POC) 199(H) 65 - 99 mg/dL 05/04/2025 11:59 AM EDT [facility] arterial/capilla ry 05/04/2025 11:54 AM EDT 05/04/2025 11:59 AM EDT Jose Balderas MD POINT OF CARE TEST ORDERABLES Final Result Performing Organization Address [facility] Co de Phone Number [address] [place] [address], [place] * (ABNORMAL) Procalcitonin (05/04/2025 5:37 AM EDT) PROCALCITONIN 7.42(H) <0.05 ng/mL 05/04/2025 1:39 PM EDT [facility] Blood Venous blood / Unknown Venipuncture / Unknown 05/04/2025 5:37 AM EDT 05/04/2025 6:01 AM EDT Narrative [facility] - 05/04/2025 1:39 PM EDT <0.50 ng/mL - Low risk of severe sepsis and/or septic shock. <2.00 ng/mL - Recommend retesting within 6-24 hours. >2.00 ng/mL - High risk of sepsis and/or septic shock. us Bethanie Marquez ESTIMATOR AND DRAFTER SUPERVISOR-ACADEMIC AFFAIRS MANAGER LAB BLOOD ORDERABLES Sadaf l Result Performing Organization Address [facility]/ZIP Co de Phone Number [address] [place] [address], [place] * (ABNORMAL) CBC auto differential (05/04/2025 5:37 AM EDT) WBC 6.8 4 - 11 x10E9/L 05/04/2025 6:06 AM EDT [facility] RBC Count 2.61(L) 3.8 - 5.2 X10E12/L 05/04/2025 6:06 AM EDT [facility] Hemoglobin 7.6(L) 11.7 - 15.5 g/dL 05/04/2025 6:06 AM EDT [facility] Hematocrit 22.5(L) 35 - 47 % 05/04/2025 6:06 AM EDT [facility] MCV 86 80 - 100 fL 05/04/2025 6:06 AM EDT [facility] MCH 29.3 27 - 34 pg 05/04/2025 6:06 AM EDT [facility] MCHC 33.9 32 - 36 g/dL 05/04/2025 6:06 AM EDT [facility] RDW 18.8(H) 11.5 - 15 % 05/04/2025 6:06 AM EDT [facility] Platelet Count 161 150 - 450 X10E9/L 05/04/2025 6:06 AM EDT [facility] MPV 10.0 7 - 12 fL 05/04/2025 6:06 AM EDT [facility] Neutrophils % 67.0 % 05/04/2025 6:06 AM EDT [facility] Lymphocytes % 23.4 % 05/04/2025 6:06 AM EDT [facility] Monocytes % 6.7 % 05/04/2025 6:06 AM EDT [facility] Eosinophils % 2.3 % 05/04/2025 6:06 AM EDT [facility] Basophils % 0.6 % 05/04/2025 6:06 AM EDT [facility] Neutrophils Absolute (A) 4.5 1.5 - 6.6 10*3/uL 05/04/2025 6:06 AM EDT [facility] Lymphocytes Absolute 1.6 1.0 - 3.5 10*3/uL 05/04/2025 6:06 AM EDT [facility] Monocytes Absolute 0.5 0.0 - 0.9 10*3/uL 05/04/2025 6:06 AM EDT [facility] Eosinophils Absolute 0.2 0.0 - 0.4 10*3/uL 05/04/2025 6:06 AM EDT [facility] Basophils Absolute 0.0 0.0 - 0.2 10*3/uL 05/04/2025 6:06 AM EDT [facility] Differential Type AUTOMATED DIFFERENTIAL 05/04/2025 6:06 AM EDT [facility] Blood Venous blood / Unknown Venipuncture / Unknown 05/04/2025 5:37 AM EDT 05/04/2025 6:01 AM EDT Luigi Floodzer ESTIMATOR AND DRAFTER SUPERVISOR-ACADEMIC AFFAIRS MANAGER LAB BLOOD ORDERABLES Fin al Result Performing Organization Address City/[facility]/ZIP Co de Phone Number [address] [place] [address], [place] * Magnesium (05/04/2025 5:37 AM EDT) MAGNESIUM 1.8 1.8 - 2.6 mg/dL 05/04/2025 6:27 AM EDT [facility] Blood Venous blood / Unknown Venipuncture / Unknown 05/04/2025 5:37 AM EDT 05/04/2025 6:01 AM EDT Luigikin Floodzer ESTIMATOR AND DRAFTER SUPERVISOR-ACADEMIC AFFAIRS MANAGER LAB BLOOD ORDERABLES Fin al Result [address] [place] [address], [place] * (ABNORMAL) Comprehensive metabolic panel (05/04/2025 5:37 AM EDT) SODIUM 131(L) 134 - 146 mmol/L 05/04/2025 6:27 AM EDT [facility] POTASSIUM 4.4 3.5 - 5.0 mmol/L 05/04/2025 6:27 AM EDT [facility] CHLORIDE 102 98 - 109 mmol/L 05/04/2025 6:27 AM EDT [facility] CARBON DIOXIDE 22 22 - 32 mmol/L 05/04/2025 6:27 AM EDT [facility] ANION GAP 7 5 - 15 mmol/L 05/04/2025 6:27 AM EDT [facility] BLOOD UREA NITROGEN 82(H) 5 - 27 mg/dL 05/04/2025 6:27 AM EDT [facility] CREATININE 2.72(H) 0.40 - 1.00 mg/dL 05/04/2025 6:27 AM EDT [facility] Comment:METHOD TRACEABLE TO IDIN STANDARD GLUCOSE 82 65 - 99 mg/dL 05/04/2025 6:27 AM EDT [facility] CALCIUM 8.2(L) 8.5 - 10.5 mg/dL 05/04/2025 6:27 AM EDT [facility] TOTAL PROTEIN 4.6(L) 6.0 - 8.0 g/dL 05/04/2025 6:27 AM EDT [facility] ALBUMIN 2.3(L) 3.2 - 5.3 g/dL 05/04/2025 6:27 AM EDT [facility] ALKALINE PHOSPHATASE 110 39 - 130 U/L 05/04/2025 6:27 AM EDT [facility] AST 268(H) <=41 U/L 05/04/2025 6:27 AM EDT [facility] ALT 147(H) <=31 U/L 05/04/2025 6:27 AM EDT [facility] BILIRUBIN,TOTAL 0.9 0.3 - 1.2 mg/dL 05/04/2025 6:27 AM EDT [facility] EGFR Non-Race Dependent 17(L) >=60 ml/min/1.7 3sq.m 05/04/2025 6:27 AM EDT [facility] Comment: eGFR not reported due to non-numeric value for Creatinine. Reported eGFR is based on the CKD-EPI 2020 equation that does not use a race coefficient. Blood Venous blood / Unknown Venipuncture / Unknown 05/04/2025 5:37 AM EDT 05/04/2025 6:01 AM EDT Luigi Reese ESTIMATOR AND DRAFTER SUPERVISOR-ACADEMIC AFFAIRS MANAGER LAB BLOOD ORDERABLES Fin al Result Performing Organization Address City/[facility]/ZIP Co de Phone Number [address] [place] [address], [place] * (ABNORMAL) Hemoglobin and hematocrit, blood (05/03/2025 9:30 PM EDT) Hemoglobin 8.2(L) 11.7 - 15.5 g/dL 05/03/2025 9:58 PM EDT [facility] Hematocrit 24.3(L) 35 - 47 % 05/03/2025 9:58 PM EDT [facility] Blood Venous blood / Unknown Venipuncture / Unknown 05/03/2025 9:30 PM EDT 05/03/2025 9:54 PM EDT Luigi Reese ESTIMATOR AND DRAFTER SUPERVISOR-[facility] LAB BLOOD ORDERABLES Fin al Result Performing Organization Address [facility] Co de Phone Number [address] [place] [address], [place] * (ABNORMAL) Bedside Glucose *Place/Obtain serum glucose if >500 per glucometer. (05/03/2025 8:23 PM EDT) Bedside Glucose (POC) 100(H) 65 - 99 mg/dL 05/03/2025 8:41 PM EDT [facility] arterial/capilla ry 05/03/2025 8:23 PM EDT 05/03/2025 8:41 PM EDT Jose Balderas MD POINT OF CARE TEST ORDERABLES Final Result Performing Organization Address City/[facility] Co de Phone Number [facility] [address] [place] [address], [place] * (ABNORMAL) Vaginitis Panel PCR (05/03/2025 6:27 PM EDT) BACT. VAGINOSIS DNA Not Detected Not Detected 05/04/2025 12:06 PM EDT [facility] Comment:Qualitative results are reported based on detection and quantitation of targeted organism markers which include: Lactobacillus spp. (L. crispatus and L. jensenii), Gardnerella vaginalis, Atopobium vaginae, Bacterial Vaginosis Associated Bacteria-2 (BVAB-2) and Megasphaera-1. GAIL SPECIES DNA Not Detected Not Detected 05/04/2025 12:06 PM EDT [facility] Comment:Gail species not detected include: C. albicans, C. tropicalis, C. parapsilosis or C. dubliniensis. GAIL KRUSEI DNA Not Detected Not Detected 05/04/2025 12:06 PM EDT [facility] Comment:No Gail krusei de tected. GAIL GLABRATA DNA Detected(A) Not Detected 05/04/2025 12:06 PM EDT [facility] Comment:Gail glabrata det ected. Literature studies show between 8-20% Fluconazole resistance for Gail glabrata. TRICHOMONAS VAG DNA Not Detected Not Detected 05/04/2025 12:06 PM EDT [facility] Comment: No Trichomonas vaginalis detected. BD MAX Vaginal Panel has not been evaluated for patients under 18 years old. Results for these patients should be reviewed and assessed in accordance with clinical presentation to determine patient diagnosis. Swab Vaginal structure / Unknown 05/03/2025 6:27 PM EDT 05/03/2025 6:44 PM EDT Marzena Jay MD MICROBIOLOGY - GENERAL ORDERAB LES Final Result [facility] [address] [place] [address], [place] [phone] * (ABNORMAL) Bedside Glucose *Place/Obtain serum glucose if >500 per glucometer. (05/03/2025 4:02 PM EDT) Bedside Glucose (POC) 147(H) 65 - 99 mg/dL 05/03/2025 4:04 PM EDT [facility] arterial/capilla ry 05/03/2025 4:02 PM EDT 05/03/2025 4:04 PM EDT us Jose Balderas MD POINT OF CARE TEST ORDERABLES Final Result Performing Organization Address City/[facility] Co de Phone Number [address] [place] [address], [place] * (ABNORMAL) Hemoglobin and hematocrit, blood (05/03/2025 3:34 PM EDT) Hemoglobin 8.0(L) 11.7 - 15.5 g/dL 05/03/2025 4:00 PM EDT [facility] Hematocrit 23.5(L) 35 - 47 % 05/03/2025 4:00 PM EDT [facility] Blood Venous blood / Unknown Venipuncture / Unknown 05/03/2025 3:34 PM EDT 05/03/2025 3:37 PM EDT Bethanie Marquez ESTIMATOR AND DRAFTER SUPERVISOR-ACADEMIC AFFAIRS MANAGER LAB BLOOD ORDERABLES Sadaf l Result [address] [place] [address], [place] * Transfuse RBC:1 Unit (05/03/2025 2:19 PM EDT) us Bethanie Marquez ESTIMATOR AND DRAFTER SUPERVISOR-ACADEMIC AFFAIRS MANAGER BLOOD TRANSFUSION ORDERAB LES Final Result * Transfuse RBC:1 Unit (05/03/2025 2:19 PM EDT) us Bethanie Marquez ESTIMATOR AND DRAFTER SUPERVISOR-ACADEMIC AFFAIRS MANAGER BLOOD TRANSFUSION ORDERAB LES Final Result * Osmolality, urine (05/03/2025 12:40 PM EDT) URINE OSMOLALITY 328 300 - 1,300 mOsm/kg H2 05/03/2025 11:10 PM EDT [facility] Urine (Urine, Indwelling Catheter) 05/03/2025 12:40 PM EDT 05/03/2025 12:56 PM EDT Vandana John CARMELLA-[facility] URINE ORDERABLES Final Res ult [facility] [address] [place] [address], [place] [phone] * Sodium, urine, random (05/03/2025 12:40 PM EDT) URINE SODIUM,RANDOM 50 mmol/L 05/03/2025 10:41 PM EDT [facility] Urine (Urine, Indwelling Catheter) 05/03/2025 12:40 PM EDT 05/03/2025 12:56 PM EDT Vandana Alvaro [facility]IR[facility] URINE ORDERABLES Final Res ult Performing Organization Address City/[facility]/ZIP Co de Phone Number [facility] [address] [place] [address], [place] [phone] * (ABNORMAL) Urinalysis (05/03/2025 12:40 PM EDT) COLOR Yellow Yellow 05/03/2025 1:15 PM EDT [facility] TURBIDITY Clear Clear 05/03/2025 1:15 PM EDT [facility] SPECIFIC GRAVITY 1.010 1.003 - 1.035 05/03/2025 1:15 PM EDT [facility] NITRITE Negative Negative 05/03/2025 1:15 PM EDT [facility] PH,URINE 6.0 5.0 - 8.5 05/03/2025 1:15 PM EDT [facility] LEUKOCYTE ESTERASE Negative Negative 05/03/2025 1:15 PM EDT [facility] PROTEIN Trace(A) Negative 05/03/2025 1:15 PM EDT [facility] KETONES (URINE) Negative Negative 1:15 PM EDT [facility] UROBILINOGEN 0.2 eu/dL 0.2 eu/dL, 1.0 eu/dL 05/03/2025 1:15 PM EDT [facility] BILIRUBIN (URINE) Negative Negative 05/03/2025 1:15 PM EDT [facility] BLOOD/HGB Moderate(A) Negative 05/03/2025 1:15 PM EDT [facility] MUCOUS Present(A) None 05/03/2025 1:15 PM EDT [facility] R.B.CELLS 4 0 - 5 05/03/2025 1:15 PM EDT [facility] W.B.CELLS 8(H) 0 - 5 05/03/2025 1:15 PM EDT [facility] GLUCOSE (URINE) Negative Negative, 250 mg/dL 05/03/2025 1:15 PM EDT [facility] Urine (Urine, Indwelling Catheter) 05/03/2025 12:40 PM EDT 05/03/2025 12:56 PM EDT us Bethanie Marquez ESTIMATOR AND DRAFTER SUPERVISOR-ACADEMIC AFFAIRS MANAGER URINE ORDERABLES Final Re sult [facility] [address] [place] [address], [place] * Ultrasound pelvic complete (05/03/2025 12:30 PM EDT) Anatomical Region Laterality Modality Body, Pelvis Ultrasound 05/03/2025 12:3 8 PM EDT Narrative 05/03/2025 12:40 PM EDT Pelvic ultrasound History:Vaginal bleeding Comparison: Findings: Transabdominal imaging was performed of the pelvis. Patient is status post hysterectomy and bilateral oophorectomy. No free fluid in the pelvis. No definite pelvic mass. Impression: * Unremarkable transabdominal ultrasound of the pelvis. Finalized by Duke Bob MD on 05/03/2025 12:40 PM Procedure Note Duke Bob MD - 05/03/2025 Pelvic ultrasound History:Vaginal bleeding Comparison: Findings: Transabdominal imaging was performed of the pelvis. Patient is status posthysterectomy and bilateral oophorectomy. No free fluid in the pelvis. Nodefinite pelvic mass. Impression: * Unremarkable transabdominal ultrasound of the pelvis. Finalized by Duke Bob MD on 05/03/2025 12:40 PM us Bethanie Marquez APRN-[facility] US ORDERABLES Final R esult * Bedside Glucose *Place/Obtain serum glucose if >500 per glucometer. (05/03/2025 11:59 AM EDT) Bedside Glucose (POC) 77 65 - 99 mg/dL 05/03/2025 12:01 PM EDT [facility] arterial/capilla ry 05/03/2025 11:59 AM EDT 05/03/2025 12:01 PM EDT us Jose Balderas MD POINT OF CARE TEST ORDERABLES Final Result [facility] [address] [place] [address], [place] * Crossmatch RBC:Number of Units: 1 (05/03/2025 9:19 AM EDT) Blood component type [id number] [facility] Unit number [id number] [facility] Unit ABO O [facility] Unit RH POS [facility] Crossmatch Compatible [facility] Status of unit TRANSFUSED PROM [facility] Expiration Date [facility] BB Type Barcode 5100 [facility] Blood Venous blood / Unknown 05/03/2025 9:19 AM EDT 05/03/2025 9:19 AM EDT Bethanie Marquez ESTIMATOR AND DRAFTER [employer]PER[employer]ORLY[employer] BLOOD B[employer] PRODUCT ORDERA BLES Edited Result - Final Performing Organization Address City/[facility]/ZIP Co de Phone Number [facility] [address] [place] [address] [place] [address], [place] * Type and screen(includes indirect nathalia) (05/03/2025 8:44 AM EDT) ABO O 05/03/2025 11:32 AM EDT [facility] RH Positive 05/03/2025 11:32 AM EDT [facility] Antibody Screen Negative 05/03/2025 11:32 AM EDT [facility] Blood Venous blood / Unknown Venipuncture / Unknown 05/03/2025 8:44 AM EDT 05/03/2025 8:46 AM EDT Bethanie Marquez ESTIMATOR AND DRAFTER SUPERVISORLY[employer] BLOOD B[facility] TEST ORDERABLE S Edited Result - Final Performing Organization Address [facility] de Phone Number [facility] [address] [place] [address] [place] [address], [address] [place] [address], [place] * (ABNORMAL) Osmolality (05/03/2025 4:14 AM EDT) OSMOLALITY 306(H) 280 - 300 mOsm/kg H2 05/03/2025 10:16 PM EDT [facility] Blood Venous blood / Unknown Venipuncture / Unknown 05/03/2025 4:14 AM EDT 05/03/2025 5:19 AM EDT Vandana John ESTIMATOR AND DRAFTER [employer] LAB BLOOD ORDERABLES Final Result [facility] [address] [place] [address], * Hepatitis panel, acute (05/03/2025 4:14 AM EDT) Pathologist [facility] HEPATITIS B SURF AG Non-Reacti ve Non-Reacti ve 05/03/2025 11:17 PM EDT [facility] HEPATITIS A IGM Non-Reacti ve Non-Reacti ve 05/03/2025 11:17 PM EDT [facility] HEPATITIS B CORE IGM Non-Reacti ve Non-Reacti ve 05/03/2025 11:17 PM EDT [facility] ANTI HCV W/PCR REFLX Non-Reacti ve Non-Reacti ve 05/03/2025 11:17 PM EDT [facility] Comment: If recent infection suspected, recommend repeat testing (>2 months). Egzerm-yc-nbgkni ratio is <1.0. Blood Venous blood / Unknown Venipuncture / Unknown 05/03/2025 4:14 AM EDT 05/03/2025 5:19 AM EDT Vandana John APRNLY[facility] SCHO[employer] FOR [employer] LAB BLOOD ORDERABLES Final Result Performing Organization Address City/[facility]/ZIP Co de Phone Number [facility] [address] [place] [address], * (ABNORMAL) C-reactive protein (05/03/2025 4:14 AM EDT) [facility] C REACTIVE PROTEIN 9.7(H) <=0.7 mg/dL 05/03/2025 12:45 PM EDT [facility] Blood Venous blood / Unknown Venipuncture / Unknown 05/03/2025 4:14 AM EDT 05/03/2025 5:19 AM EDT Vandana John [employer]NLY[facility] FOR [facility] LAB BLOOD ORDERABLES Final Result [address] [place] [address], [place] * (ABNORMAL) Procalcitonin (05/03/2025 4:14 AM EDT) Pathologist [facility] PROCALCITONIN 9.34(H) <0.05 ng/mL 05/03/2025 1:42 PM EDT [facility] Blood Venous blood / Unknown Venipuncture / Unknown 05/03/2025 4:14 AM EDT 05/03/2025 5:19 AM EDT Narrative [facility] - 05/03/2025 1:42 PM EDT <0.50 ng/mL - Low risk of severe sepsis and/or septic shock. <2.00 ng/mL - Recommend retesting within 6-24 hours. >2.00 ng/mL - High risk of sepsis and/or septic shock. Vandana John APRN-[facility] LAB BLOOD ORDERABLES Final Result [address] [place] [address], [place] * (ABNORMAL) CBC auto differential (05/03/2025 4:14 AM EDT) [facility] WBC 11.2(H) 4 - 11 x10E9/L 05/03/2025 5:48 AM EDT [facility] RBC Count 2.31(L) 3.8 - 5.2 X10E12/L 05/03/2025 5:48 AM EDT [facility] Hemoglobin 6.7(LL) 11.7 - 15.5 g/dL 05/03/2025 5:48 AM EDT [facility] Hematocrit 20.4(L) 35 - 47 % 05/03/2025 5:48 AM EDT [facility] MCV 88 80 - 100 fL 05/03/2025 5:48 AM EDT [facility] MCH 28.8 27 - 34 pg 05/03/2025 5:48 AM EDT [facility] MCHC 32.6 32 - 36 g/dL 05/03/2025 5:48 AM EDT [facility] RDW 19.6(H) 11.5 - 15 % 05/03/2025 5:48 AM EDT [facility] Platelet Count 195 150 - 450 X10E9/L 05/03/2025 5:48 AM EDT [facility] MPV 10.4 7 - 12 fL 05/03/2025 5:48 AM EDT [facility] Neutrophils % 77.5 % 05/03/2025 5:48 AM EDT [facility] Lymphocytes % 15.7 % 05/03/2025 5:48 AM EDT [facility] Monocytes % 6.0 % 05/03/2025 5:48 AM EDT [facility] Eosinophils % 0.3 % 05/03/2025 5:48 AM EDT [facility] Basophils % 0.5 % 05/03/2025 5:48 AM EDT [facility] Neutrophils Absolute (A) 8.7(H) 1.5 - 6.6 10*3/uL 05/03/2025 5:48 AM EDT [facility] Lymphocytes Absolute 1.8 1.0 - 3.5 10*3/uL 05/03/2025 5:48 AM EDT [facility] Monocytes Absolute 0.7 0.0 - 0.9 10*3/uL 05/03/2025 5:48 AM EDT [facility] Eosinophils Absolute 0.0 0.0 - 0.4 10*3/uL 05/03/2025 5:48 AM EDT [facility] Basophils Absolute 0.1 0.0 - 0.2 10*3/uL 05/03/2025 5:48 AM EDT [facility] Differential Type AUTOMATED DIFFERENTIAL 05/03/2025 5:48 AM EDT [facility] Blood Venous blood / Unknown Venipuncture / Unknown 05/03/2025 4:14 AM EDT 05/03/2025 5:18 AM EDT Luigi Floodzer ESTIMATOR AND [employer] SUPERVISOR-[employer] MANAGER LAB BLOOD ORDERABLES Fin al Result Performing Organization Address [facility] Co de Phone Number [address] [place] [address], [place] * Magnesium (05/03/2025 4:14 AM EDT) MAGNESIUM 1.8 1.8 - 2.6 mg/dL 05/03/2025 6:07 AM EDT [facility] Blood Venous blood / Unknown Venipuncture / Unknown 05/03/2025 4:14 AM EDT 05/03/2025 5:19 AM EDT Luigi Reese APRN-ACADEMIC AFFAIRS MANAGER LAB BLOOD ORDERABLES Fin al Result Performing Organization Address [facility] de Phone Number [address] [place] [address], [place] * (ABNORMAL) Comprehensive metabolic panel (05/03/2025 4:14 AM EDT) SODIUM 129(L) 134 - 146 mmol/L 05/03/2025 6:07 AM EDT [facility] POTASSIUM 4.4 3.5 - 5.0 mmol/L 05/03/2025 6:07 AM EDT [facility] CHLORIDE 98 98 - 109 mmol/L 05/03/2025 6:07 AM EDT [facility] CARBON DIOXIDE 22 22 - 32 mmol/L 05/03/2025 6:07 AM EDT [facility] ANION GAP 9 5 - 15 mmol/L 05/03/2025 6:07 AM EDT [facility] BLOOD UREA NITROGEN 97(H) 5 - 27 mg/dL 05/03/2025 6:07 AM EDT [facility] CREATININE 3.65(H) 0.40 - 1.00 mg/dL 05/03/2025 6:07 AM EDT [facility] Comment:METHOD TRACEABLE TO IDMS STANDARD GLUCOSE 89 65 - 99 mg/dL 05/03/2025 6:07 AM EDT [facility] CALCIUM 8.1(L) 8.5 - 10.5 mg/dL 05/03/2025 6:07 AM EDT [facility] TOTAL PROTEIN 4.9(L) 6.0 - 8.0 g/dL 05/03/2025 6:07 AM EDT [facility] ALBUMIN 2.4(L) 3.2 - 5.3 g/dL 05/03/2025 6:07 AM EDT [facility] ALKALINE PHOSPHATASE 137(H) 39 - 130 U/L 05/03/2025 6:07 AM EDT [facility] AST 248(H) <=41 U/L 05/03/2025 6:07 AM EDT [facility] ALT 142(H) <=31 U/L 05/03/2025 6:07 AM EDT [facility] BILIRUBIN,TOTAL 0.5 0.3 - 1.2 mg/dL 05/03/2025 6:07 AM EDT [facility] EGFR Non-Race Dependent 12(L) >=60 ml/min/1.7 3sq.m 05/03/2025 6:07 AM EDT [facility] Comment: eGFR not reported due to non-numeric value for Creatinine. Reported eGFR is based on the CKD-EPI 2020 equation that does not use a race coefficient. Blood Venous blood / Unknown Venipuncture / Unknown 05/03/2025 4:14 AM EDT 05/03/2025 5:19 AM EDT us Luigi Reese ESTIMATOR AND DRAFTER SUPERVISOR-ACADEMIC AFFAIRS MANAGER LAB BLOOD ORDERABLES Fin al Result [facility] [address] [place] [address], [place] * (ABNORMAL) Bedside Glucose *Place/Obtain serum glucose if >500 per glucometer. (05/03/2025 1:37 AM EDT) Bedside Glucose (POC) 187(H) 65 - 99 mg/dL 05/03/2025 8:17 AM EDT [facility] arterial/capilla ry 05/03/2025 1:37 AM EDT 05/03/2025 8:17 AM EDT us Jose Balderas MD POINT OF CARE TEST ORDERABLES Final Result [facility] [address] [place] [address], [place] * CT abdomen and pelvis without contrast (05/02/2025 10:48 PM EDT) Anatomical Region Laterality Modality Body, Abdomen, Body Covera N/A Compu koko Tomography 05/02/2025 11:0 4 PM EDT Narrative 05/02/2025 11:07 PM EDT CLINICAL INFORMATION: elevated enzymes TECHNIQUE: CT ABDOMEN AND PELVIS WO CONT CT images of the abdomen and pelvis are obtained. Images are acquired without contrast. This produces some limitation. Comparison is made prior exam dated April 04, 2023. Limited images lung bases grossly clear. No focal hepatic or splenic abnormality. Patient is postcholecystectomy. Kidneys appear somewhat atrophic. Severe aortoiliac and mesenteric atherosclerotic changes noted. Vessels not well evaluated with this exam. Bowel is nondistended. Although bile duct appears somewhat prominent, this may represent reservoir effect secondary to remote cholecystectomy. Osseous structures appear intact. IMPRESSION: Severe aortoiliac and mesenteric atherosclerotic changes. If this is of clinical concern, contrasted exam may be helpful. All CT scans at this facility use dose modulation, iterative reconstruction, and/or weight based dosing when appropriate to reduce radiation dose to as low as reasonably achievable. Finalized by Edward Jha MD on 05/02/2025 11:07 PM Procedure Note Edward Jha MD - 05/02/2025 CLINICAL INFORMATION: elevated enzymes TECHNIQUE: CT ABDOMEN AND PELVIS WO CONT CT images of the abdomen and pelvis are obtained. Images are acquiredwithout contrast. This produces some limitation. Comparison is made priorexam dated April 04, 2023. Limited images lung bases grossly clear. No focalhepatic or splenic abnormality. Patient is postcholecystectomy. Kidneysappear somewhat atrophic. Severe aortoiliac and mesenteric atheroscleroticchanges noted. Vessels not well evaluated with this exam. Bowel isnondistended. Although bile duct appears somewhat prominent, this mayrepresent reservoir effect secondary to remote cholecystectomy. Osseousstructures appear intact. IMPRESSION: Severe aortoiliac and mesenteric atherosclerotic changes. If this is ofclinical concern, contrasted exam may be helpful. All CT scans at this facility use dose modulation, iterativereconstruction, and/or weight based dosing when appropriate to reduceradiation dose to as low as reasonably achievable. Finalized by Edward Jha MD on 05/02/2025 11:07 PM us Ivania Trevino ESTIMATOR AND DRAFTER SUPERVISOR-ACADEMIC AFFAIRS MANAGER IMG CT ORDERABLES Sadaf l Result * Light Blue Top (05/02/2025 9:06 PM EDT) Extra Tube Auto Resulted 05/02/2025 11:01 PM EDT [facility] Blood Venous blood / Unknown Venipuncture / Unknown 05/02/2025 9:06 PM EDT 05/02/2025 9:09 PM EDT us Yvette Watson DO LAB BLOOD ORDERABLES Final R esult [facility] [address] [place] [address], * Magnesium (05/02/2025 9:06 PM EDT) MAGNESIUM 1.9 1.8 - 2.6 mg/dL 05/02/2025 9:33 PM EDT [facility] Blood Venous blood / Unknown Venipuncture / Unknown 05/02/2025 9:06 PM EDT 05/02/2025 9:08 PM EDT us Ivaniaalex Trevino ESTIMATOR AND DRAFTER SUPERVISOR-ACADEMIC AFFAIRS MANAGER LAB BLOOD ORDERABLES F inal Result [facility] [address] [place] [address], [place] * (ABNORMAL) Comprehensive metabolic panel (05/02/2025 9:06 PM EDT) SODIUM 126(L) 134 - 146 mmol/L 05/02/2025 10:02 PM EDT [facility] POTASSIUM 5.5(H) 3.5 - 5.0 mmol/L 05/02/2025 10:02 PM EDT [facility] CHLORIDE 93(L) 98 - 109 mmol/L 05/02/2025 10:02 PM EDT [facility] CARBON DIOXIDE 24 22 - 32 mmol/L 05/02/2025 10:02 PM EDT [facility] ANION GAP 9 5 - 15 mmol/L 05/02/2025 10:02 PM EDT [facility] BLOOD UREA NITROGEN 134(H) 5 - 27 mg/dL 05/02/2025 10:02 PM EDT [facility] CREATININE 3.79(H) 0.40 - 1.00 mg/dL 05/02/2025 10:02 PM EDT [facility] Comment:METHOD TRACEABLE TO IDMS STANDARD GLUCOSE 231(H) 65 - 99 mg/dL 05/02/2025 10:02 PM EDT [facility] CALCIUM 8.1(L) 8.5 - 10.5 mg/dL 05/02/2025 10:02 PM EDT [facility] TOTAL PROTEIN 5.7(L) 6.0 - 8.0 g/dL 05/02/2025 10:02 PM EDT [facility] ALBUMIN 2.8(L) 3.2 - 5.3 g/dL 05/02/2025 10:02 PM EDT [facility] ALKALINE PHOSPHATASE 166(H) 39 - 130 U/L 05/02/2025 10:02 PM EDT [facility] AST 225(H) <=41 U/L 05/02/2025 10:02 PM EDT [facility] ALT 141(H) <=31 U/L 05/02/2025 10:02 PM EDT [facility] BILIRUBIN,TOTAL 0.7 0.3 - 1.2 mg/dL 05/02/2025 10:02 PM EDT [facility] EGFR Non-Race Dependent 12(L) >=60 ml/min/1.7 3sq.m 05/02/2025 10:02 PM EDT [facility] Comment: eGFR not reported due to non-numeric value for Creatinine. Reported eGFR is based on the CKD-EPI 2020 equation that does not use a race coefficient. Blood Venous blood / Unknown Venipuncture / Unknown 05/02/2025 9:06 PM EDT 05/02/2025 9:08 PM EDT us Ivania Trevino ESTIMATOR AND DRAFTER SUPERVISOR-ACADEMIC AFFAIRS MANAGER LAB BLOOD ORDERABLES F inal Result [facility] [address] [place] [address], * (ABNORMAL) CBC auto differential (05/02/2025 9:06 PM EDT) WBC 18.1(H) 4 - 11 x10E9/L 05/02/2025 10:21 PM EDT [facility] RBC Count 2.58(L) 3.8 - 5.2 X10E12/L 05/02/2025 10:21 PM EDT [facility] Hemoglobin 7.4(L) 11.7 - 15.5 g/dL 05/02/2025 10:21 PM EDT [facility] Hematocrit 22.6(L) 35 - 47 % 05/02/2025 10:21 PM EDT [facility] MCV 88 80 - 100 fL 05/02/2025 10:21 PM EDT [facility] MCH 28.6 27 - 34 pg 05/02/2025 10:21 PM EDT [facility] MCHC 32.6 32 - 36 g/dL 05/02/2025 10:21 PM EDT [facility] RDW 20.1(H) 11.5 - 15 % 05/02/2025 10:21 PM EDT [facility] Platelet Count 202 150 - 450 X10E9/L 05/02/2025 10:21 PM EDT [facility] MPV 10.3 7 - 12 fL 05/02/2025 10:21 PM EDT [facility] Bands % 4 % 05/02/2025 10:21 PM EDT [facility] Comment:This is an appended report. These results have been appended to a previously preliminary verified report. Neutrophils % 84 % 05/02/2025 10:21 PM EDT [facility] Comment:This is an appended report. These results have been appended to a previously preliminary verified report. Lymphocytes % 10 % 05/02/2025 10:21 PM EDT [facility] Comment:This is an appended report. These results have been appended to a previously preliminary verified report. Monocytes % 2 % 05/02/2025 10:21 PM EDT [facility] Comment:This is an appended report. These results have been appended to a previously preliminary verified report. Neutrophils Absolute (M) 16.0(H) 1.5 - 6.6 10*3/uL 05/02/2025 10:21 PM EDT [facility] Comment:This is an appended report. These results have been appended to a previously preliminary verified report. Lymphocytes Absolute 1.8 1.0 - 3.5 10*3/uL 05/02/2025 10:21 PM EDT [facility] Comment:This is an appended report. These results have been appended to a previously preliminary verified report. Monocytes Absolute 0.4 0.0 - 0.9 10*3/uL 05/02/2025 10:21 PM EDT [facility] Comment:This is an appended report. These results have been appended to a previously preliminary verified report. Macro Ovalocytes 1+ 05/02/20 25 10:21 PM EDT [facility] Comment:This is an appended report. These results have been appended to a previously preliminary verified report. Differential Type CELLAVISION DIFFERENTIAL 05/02/2025 10:21 PM EDT [facility] Comment:This is an appended report. These results have been appended to a previously preliminary verified report. Blood Venous blood / Unknown Venipuncture / Unknown 05/02/2025 9:06 PM EDT 05/02/2025 9:08 PM EDT us Ivania Trevino ESTIMATOR AND DRAFTER SUPERVISOR-ACADEMIC AFFAIRS MANAGER LAB BLOOD ORDERABLES F inal Result Performing Organization Address [facility] Co de Phone Number [address] [place] [address], [place] * Lactate w/ Reflex (05/02/2025 9:05 PM EDT) LACTATE W/REFLEX 1.4 0.4 - 2.0 mmol/L 05/02/2025 9:29 PM EDT [facility] Blood Venous blood / Unknown Venipuncture / Unknown 05/02/2025 9:05 PM EDT 05/02/2025 9:09 PM EDT Narrative [facility] - 05/02/2025 9:29 PM EDT Result did not trigger repeat Lactate, re-order if needed. us Ivania Trevino ESTIMATOR AND DRAFTER SUPERVISOR-ACADEMIC AFFAIRS MANAGER LAB BLOOD ORDERABLES F inal Result Performing Organization Address City/[facility] Co de Phone Number [address] [place] [address], [place] * CT brain without contrast (05/02/2025 8:47 PM EDT) Anatomical Region Laterality Modality Neuro, Head, Head and Neck, Neuro Covera N/A Computed Tomography 05/02/2025 8:51 PM EDT Narrative 05/02/2025 8:54 PM EDT STUDY: CT HEAD WITHOUT CONTRAST CLINICAL HISTORY: Patient is feeling tired today. Recent fall. COMPARISON: 04/08/2025 TECHNIQUE: CT head was performed without contrast utilizing 2.5 mm axial reconstruction with images reviewed in bone and brain windows. Automated exposure control was utilized. FINDINGS: Noncontrast CT scan examination of the brain revealed mildly prominent ventricles, cortical sulci and sylvian fissures suggesting age-appropriate mild senescent atrophic changes. There is no evidence of mass, mass effect or midline shift. No evidence of intracranial bleeding. Incidental note is made of hyperostosis frontalis. Small left frontal scalp hematoma. Vascular calcifications. Evidence of prior bilateral cataract surgery IMPRESSION: 1. No evidence of an acute intracranial process. Age-appropriate senescent atrophic changes. Left frontal scalp hematoma. All CT scans at this facility use dose modulation, iterative reconstruction, and/or weight based dosing when appropriate to reduce radiation dose to as low as reasonably achievable. Finalized by Roxanne Sears MD on 05/02/2025 8:54 PM Procedure Note Roxanne Sears MD - 05/02/2025 STUDY: CT HEAD WITHOUT CONTRAST CLINICAL HISTORY: Patient is feeling tired today. Recent fall. COMPARISON: 04/08/2025 TECHNIQUE: CT head was performed without contrast utilizing 2.5 mm axialreconstruction with images reviewed in bone and brain windows. Automatedexposure control was utilized. FINDINGS: Noncontrast CT scan examination of the brain revealed mildly prominentventricles, cortical sulci and sylvian fissures suggesting age-appropriatemild senescent atrophic changes. There is no evidence of mass, mass effector midline shift. No evidence of intracranial bleeding. Incidental note is made of hyperostosis frontalis. Small left frontalscalp hematoma. Vascular calcifications. Evidence of prior bilateralcataract surgery IMPRESSION: 1. No evidence of an acute intracranial process. Age-appropriate senescentatrophic changes. Left frontal scalp hematoma. All CT scans at this facility use dose modulation, iterativereconstruction, and/or weight based dosing when appropriate to reduceradiation dose to as low as reasonably achievable. Finalized by Roxanne Sears MD on 05/02/2025 8:54 PM Ivania Trevino ESTIMATOR AND DRAFTER SUPERVISOR-[facility] CT ORDERABLES Sadaf l Result * X-ray chest 1 view (05/02/2025 8:47 PM EDT) Anatomical Region Laterality Modality Body, Chest N/A Computed Radiogr aphy 05/02/2025 8:51 PM EDT Narrative 05/02/2025 8:52 PM EDT AP single view chest dated 05/02/2025 at 8:45 PM INDICATION: Fatigue. FINDINGS: Comparison is 04/10/2025. Enlarged cardiac/pericardiac silhouette. Left lower lobe atelectasis and/or infiltrates, not significantly changed. No edema or effusion. No pneumothorax. IMPRESSION: 1. Persistent left lower lobe infiltrates and/or atelectasis not well evaluated on portable film. 2. Enlarged cardiac/pericardiac silhouette. 3. No edema or effusion. Finalized by Joe Novoa MD on 05/02/2025 8:52 PM Procedure Note Joe Novoa MD - 05/02/2025 AP single view chest dated 05/02/2025 at 8:45 PM INDICATION: Fatigue. FINDINGS: Comparison is 04/10/2025. Enlarged cardiac/pericardiacsilhouette. Left lower lobe atelectasis and/or infiltrates, notsignificantly changed. No edema or effusion. No pneumothorax. IMPRESSION: 1. Persistent left lower lobe infiltrates and/or atelectasis not wellevaluated on portable film. 2. Enlarged cardiac/pericardiac silhouette. 3. No edema or effusion. Finalized by Joe Novoa MD on 05/02/2025 8:52 PM Ivania Trevino ESTIMATOR AND DRAFTER SUPERVISOR-ACADEMIC AFFAIRS MANAGER [facility] DIAGNOSTIC IMAGING ORDERABLES Final Result * (ABNORMAL) Nursing fecal occult blood (OBN) (05/02/2025 8:28 PM EDT) POC Fecal Occult Blood Positive(A ) Negative, Invalid Result 05/03/2025 5:32 AM EDT [facility] Stool Feces / Unknown 05/02/2025 8 :28 PM EDT 05/03/2025 5:32 AM EDT us Jose Balderas MD POINT OF CARE TEST ORDERABLES Final Result Performing Organization Address City/[facility]/ZIP Co de Phone Number [facility] [address] [address], [place] * ECG 12 lead (05/02/2025 8:20 PM EDT) 05/02/2025 8:20 PM EDT Narrative [facility] - 05/02/2025 8:35 PM EDT us Ivania Trevino ESTIMATOR AND DRAFTER SUPERVISOR-ACADEMIC AFFAIRS MANAGER ECG ORDERABLES Final Result Performing Organization Address [facility] Co de Phone Number [facility] * Critical Care (05/02/2025 8:12 PM EDT) Narrative Yvette Watson DO - 05/02/2025 8:12 PM EDT Yvette Watson DO 05/02/2025 10:40 PM Critical Care Performed by: Yvette Watson DO Authorized by: Yvette Watson DO Critical care provider statement: Critical care time (minutes): 35 Critical care time was exclusive of: Separately billable procedures and treating other patients Critical care was necessary to treat or prevent imminent or life-threatening deterioration of the following conditions: GI bleed. Critical care was time spent personally by me on the following activities: Blood draw for specimens, development of treatment plan with patient or surrogate, discussions with consultants, discussions with primary provider, evaluation of patient's response to treatment, examination of patient, interpretation of cardiac output measurements, obtaining history from patient or surrogate, ordering and performing treatments and interventions, ordering and review of laboratory studies, ordering and review of radiographic studies, pulse oximetry, re-evaluation of patient's condition and review of old charts Care discussed with: admitting provider Comments: And with surgery consultation. Yvette Watson DO PROCEDURE/MINOR SURGICAL ORD ERABLES Final Result documented in this encounter Visit Diagnoses Diagnosis Acute upper GI bleed- Primary Unspecified, hemorrhage of gastrointestinal tract ERNESTINE (acute kidney injury) Hyperkalemia Hyperpotassemia Transaminitis Nonspecific elevation of levels of transaminase or lactic acid dehydrogenase (LDH) Acute upper GI bleed Unspecified, hemorrhage of gastrointestinal tract Urinary retention Unspecified retention of urine Vitamin B12 deficiency Other B-complex deficiencies Polyneuropathy Unspecified hereditary and idiopathic peripheral neuropathy Stage 3b chronic kidney disease (CKD) ([facility]) Paroxysmal atrial fibrillation ([facility]) Atrial fibrillation ASCVD (arteriosclerotic cardiovascular disease) Unspecified cardiovascular disease Type 2 diabetes mellitus with diabetic polyneuropathy, with long-term current use of insulin ([facility]) Vaginal bleeding Other specified noninflammatory disorder of vagina Left lower lobe pulmonary infiltrate Weakness Other malaise and fatigue Vitamin B12 deficiency Other B-complex deficiencies Type 2 diabetes mellitus with diabetic polyneuropathy, with long-term current use of insulin ([facility]) Acute kidney injury superimposed on stage 3b chronic kidney disease ([facility]) Paroxysmal atrial fibrillation ([facility]) Atrial fibrillation Iron deficiency anemia due to chronic blood loss Iron deficiency anemia secondary to blood loss (chronic) Hypertension Unspecified essential hypertension Hyperlipidemia Other and unspecified hyperlipidemia Hyperkalemia Hyperpotassemia Pressure ulcer of left heel, stage 1 Dermatitis associated with moisture documented in this encounter Admitting Diagnoses Diagnosis Acute upper GI bleed Unspecified, hemorrhage of gastrointestinal tract Weakness Other malaise and fatigue Hyperkalemia Hyperpotassemia Transaminitis Nonspecific elevation of levels of transaminase or lactic acid dehydrogenase (LDH) documented in this encounter Administered Medications Inactive Administered Medications - up to 3 most recent administrations Medication Order MAR Action Action Date Dose Rate Site acetaminophen (TYLENOL EXTRA STRENGTH) tablet 500 mg 500 mg, oral, Every 6 hours PRN, mild pain - pain scale 1-3, headaches, temperature greater than 38 C, Temperature greater than 38.3 C, Starting on Sat05/05/25 at 1021, [Warning: Total Acetaminophen not to exceed more than 4 grams (4000 mg) in 24 hours] amiodarone (PACERONE) tablet 200 mg 200 mg, oral, 2 times daily, First dose on Sat05/03/25 at 0000, Look-alike/sound-alike medication - verify indication for use. Given 05/10/2025 8:47 AM EDT 200 mg Given 05/09/2025 9:44 PM EDT 200 mg Given 05/09/2025 8:04 AM EDT 200 mg amiodarone (PACERONE) tablet 200 mg 200 mg, oral, Daily, First dose (after last modification) on Sat05/11/25 at 0900, Look-alike/sound-alike medication - verify indication for use. Given 05/11/2025 8:42 AM EDT 200 mg bisacodyL (DULCOLAX) EC tablet 10 mg 10 mg, oral, Every 6 hours, First dose on Sat05/04/25 at 1200, For 2 doses, Scheduling/ADT, Administer once at 1200, then wait for bowel movement (or maximum 3 hours) before administering polyethylene glycol solution. Repeat dose at 6:00 PM. Look-alike/sound-alike medication - verify indication for use. Do not crush or chew. Given 05/04/2025 6:04 PM EDT 10 mg Given 05/04/2025 11:24 AM EDT 10 mg bisacodyL (DULCOLAX) EC tablet 10 mg 10 mg, oral, Every 6 hours, First dose on Sat05/06/25 at 1400, For 2 doses, Scheduling/ADT, Administer once at 1200, then wait for bowel movement (or maximum 3 hours) before administering polyethylene glycol solution. Repeat dose at 6:00 PM. Look-alike/sound-alike medication - verify indication for use. Do not crush or chew. Given 05/06/2025 8:31 PM EDT 10 mg Given 05/06/2025 2:35 PM EDT 10 mg clopidogreL (PLAVIX) tablet 75 mg 75 mg, oral, Daily, First dose on Sat05/10/25 at 1900, Look-alike/sound-alike medication - verify indication for use. Given 05/11/2025 8:43 AM EDT 75 mg Given 05/10/2025 8:13 PM EDT 75 mg ferrous sulfate tablet 325 mg 325 mg, oral, Daily with breakfast, First dose on Sat05/03/25 at 0800, Give ferrous sulfate 2 hours before or 4 hours after antacids. Given 05/11/2025 8:42 AM EDT 325 mg Given 05/10/2025 8:47 AM EDT 325 mg Given 05/09/2025 8:03 AM EDT 325 mg furosemide (LASIX) injection 40 mg 40 mg, intravenous, Once, On 05/10/25 at 1200, For 1 dose, Look-alike/sound-alike medication - verify indication for use. IVP rate = 20 mg/min Given 05/10/2025 12:00 PM EDT 40 mg furosemide (LASIX) tablet 40 mg 40 mg, oral, Daily, First dose on 05/09/25 at 1145, Look-alike/sound-alike medication - verify indication for use. Given 05/10/2025 8:47 AM EDT 40 mg Given 05/09/2025 11:41 AM EDT 40 mg furosemide (LASIX) tablet 40 mg 40 mg, oral, Daily, First dose on Tu05/11/25 at 1045, Look-alike/sound-alike medication - verify indication for use. Given 05/11/2025 12:03 PM EDT 40 mg heparin infusion 94665 units/500 mL in 0.45% NaCl (50 units/mL premix) 300-3,500 Units/hr (6-70 mL/hr), intravenous, Continuous, Starting on 05/08/25 at 1230, Please titrate from infusion rate listed above. MAXIMUM Initial Infusion: 2100 units/hr. Heparin High-Intensity Infusion (Non-Cardiology) Heparin Adjustment Table: Anti-Xa Therapeutic Goal: 0.3 - 0.7 IU/mL Anti-Xa results (IU/mL): Anti-Xa every 6 hours after dosage adjustment until therapeutic x 2 then every AM -less than 0.2 IU/mL: bolus 5000 units, increase rate by 150 units/hr (3 mL/hr), next Anti-Xa in 6 hrs. -0.2 - 0.29 IU/mL: increase rate by 100 units/hr (2 mL/hr), next Anti-Xa in 6 hours. -Notify provider if: Anti-Xa less than 0.3 IU per mL for 2 consecutive results. -0.3 - 0.7 IU/mL:Therapeutic level: next Anti-Xa in 6 hours then every AM. -0.71 - 0.8 IU/mL: decrease rate by 50 units/hr (1 mL/hr), next Anti-Xa in 6 hours. -0.81 - 1.6 IU/mL : stop infusion for 30 minutes, decrease rate by 100 units/hr (2 mL/hr), next Anti-Xa in 6 hours. -1.61 - 2 IU/mL: stop infusion for 60 minutes, decrease rate by 150 units/hr (3 mL/hr), next Anti-Xa in 6 hours. - Greater than 2 IU/mL: stop infusion for 90 minutes, decrease rate by 250 units/hr (5 mL/hr), next Anti-Xa in 6 hours. -Notify provider if: Platelet count less than 100,000/mm3 or less than or equal to 50% of baseline. Monitor for signs of bleeding. Look-alike/sound-alike medication - verify indication for use., Indication: DVT, INITIAL Infusion Dose (Units/hr): 1000 units/hr New Bag 05/10/2025 4:19 PM EDT 1,000 Units/hr 20 mL/hr New Bag 05/09/2025 2:16 PM EDT 1,000 Units/hr 20 mL/hr Rate/Dose Verify 05/09/2025 6:58 AM EDT 1,000 Units/hr 20 mL/hr insulin glargine (LANTUS, SEMGLEE) 100 unit/mL (3 mL) injection pen - Pyxis Override Pull Starting on 05/03/25 at 0142, For 1 dose, Rosey Ferrolo: cabinet override Look-alike/sound-alike medication - verify indication for use. Prime with 2 units of insulin prior to administration. Basal (long acting) insulin for subcutaneous administration only. Do not mix with any other insulin. Pre-filled pens stable 28 days at room temperature. insulin glargine (LANTUS, SEMGLEE) injection pen 15 Units 15 Units, subcutaneous, Nightly, First dose (after last modification) on Sat05/08/25 at 2200, Look-alike/sound-alike medication - verify indication for use. Prime with 2 units of insulin prior to administration. Basal (long acting) insulin for subcutaneous administration only. Do not mix with any other insulin. Pre-filled pens stable 28 days at room temperature. insulin glargine (LANTUS, SEMGLEE) injection pen 20 Units 20 Units, subcutaneous, Nightly, First dose on Sat05/03/25 at 0000, Look-alike/sound-alike medication - verify indication for use. Prime with 2 units of insulin prior to administration. Basal (long acting) insulin for subcutaneous administration only. Do not mix with any other insulin. Pre-filled pens stable 28 days at room temperature. Given 05/07/2025 9:19 PM EDT 20 Units Abdominal Tissue Given 05/05/2025 10:51 PM EDT 20 Units A bdominal Tissue Given 05/03/2025 10:06 PM EDT 20 Units A bdominal Tissue insulin lispro (HumaLOG) 100 unit/mL injection - Pyxis Override Pull Starting on Sat05/03/25 at 0142, For 1 dose, Vernon Ferro: cabinet override Look-alike/sound-alike medication - verify indication for use. Prime with 2 units of insulin prior to administration. Prandial/supplemental Insulin. Pre-filled pens stable 28 days at room temperature. Insulin lispro should be administered within 15 minutes before or immediately after a meal. insulin lispro (HumaLOG) injection 2-10 Units 2-10 Units, subcutaneous, 4 times daily with meals and nightly, First dose on Sat05/03/25 at 0000, Daytime hyperglycemia dosing. For blood glucose 151-200 mg/dL, give 2 units. For blood glucose 201-250 mg/dL, give 4 units. For blood glucose 251-300 mg/dL, give 6 units. For blood glucose 301-350 mg/dL, give 8 units. For blood glucose 351-400 mg/dL, give 10 units. Give even if NPO or meals skipped. Do NOT give more often then every 4 hours when NPO. Notify prescriber if blood glucose greater than 400 mg/dL. Look-alike/sound-alike medication - verify indication for use. Prime with 2 units of insulin prior to administration. Prandial/supplemental Insulin. Pre-filled pens stable 28 days at room temperature. Insulin lispro should be administered within 15 minutes before or immediately after a meal. Given 05/11/2025 12:04 PM EDT 4 Units Left Arm Given 05/10/2025 6:26 PM EDT 6 Units Ab dominal Tissue Given 05/10/2025 12:00 PM EDT 4 Units A bdominal Tissue magnesium sulfate IVPB 2000 mg/50 mL in iso-osmotic water (40 mg/mL premix) 2,000 mg, intravenous, at 25 mL/hr, Administer over 120 Minutes, As needed, Magnesium level 1.7 to 1.9 mg/dL, or Ionized Magnesium level 0.45 to 0.5 mmol/L., Starting on Sat05/02/25 at 2347, Recheck magnesium level 4 hours after infusion complete. With each magnesium result continue the replacement orders as needed. New Bag 05/10/2025 8:53 AM EDT 2,000 mg 25 mL/hr New Bag 05/09/2025 4:48 AM EDT 2,000 mg 25 mL/hr Rate/Dose Verify 05/04/2025 3:33 PM EDT 25 mL/h r metoprolol tartrate (LOPRESSOR) tablet 25 mg 25 mg, oral, 2 times daily, First dose on Sat05/03/25 at 0000, Look-alike/sound-alike medication - verify indication for use. Given 05/11/2025 8:42 AM EDT 25 m g Given 05/10/2025 8:47 AM EDT 25 mg Given 05/09/2025 9:44 PM EDT 25 mg miconazole (MICOTIN-7) 2 % vaginal cream 1 applicator 1 applicator, vaginal, Nightly, First dose on 05/09/25 at 2200, For 7 days Given 05/10/2025 9:23 PM E DT 1 applicator Given 05/09/2025 9:50 PM EDT 1 applicator pantoprazole (PROTONIX) 80 mg in sodium chloride 0.9 % 100 mL (0.8 mg/mL) infusion 8 mg/hr (10 mL/hr), intravenous, Continuous, Starting on Sat05/02/25 at 2210, Look-alike/sound-alike medication - verify indication for use., Indication: Upper GI bleed Rate/Dose Verify 05/06/2025 2:41 AM EDT 8 mg/hr 10 mL/hr New Bag 05/06/2025 1:45 AM EDT 8 mg/hr 10 mL/hr Restarted 05/06/2025 1:44 AM EDT 8 mg/hr 10 mL/hr pantoprazole (PROTONIX) EC tablet 40 mg 40 mg, oral, 2 times daily before meals, First dose on Sat05/08/25 at 0700, Look-alike/sound-alike medication - verify indication for use. If patient is receiving enteral feeding, consider alternative PPI or continue IV pantoprazole until the delayed-release tablet can be taken orally, Indication: GERD Given 05/11/2025 3:00 PM EDT 40 mg Given 05/11/2025 5:38 AM EDT 40 mg Given 05/10/2025 6:26 PM EDT 40 mg pantoprazole (PROTONIX) injection 40 mg 40 mg, intravenous, 2 times daily, First dose on Sat05/06/25 at 1200, Look-alike/sound-alike medication - verify indication for use., Indication: Other (YAMIL) Given 05/07/2025 2:50 AM EDT 40 mg Given 05/06/2025 1:30 PM EDT 40 mg polyethylene glycol (GLYCOLAX) powder 238 g 238 g, oral, Once, On Sat05/04/25 at 1500, For 1 dose, Scheduling/ADT, Split between two 32 ounce bottles of electrolyte replacement drink. Wait for bowel movement following bisacodyl administration (or a maximum of 3 hours), then give 8 ounces every 15 minutes until 64 ounces consumed. Do not use red colored drink. Given 05/04/2025 2:56 PM EDT 238 g polyethylene glycol (GLYCOLAX) powder 238 g 238 g, oral, Once, On Sat05/06/25 at 1500, For 1 dose, Scheduling/ADT, Split between two 32 ounce bottles of electrolyte replacement drink. Wait for bowel movement following bisacodyl administration (or a maximum of 3 hours), then give 8 ounces every 15 minutes until 64 ounces consumed. Do not use red colored drink. Given 05/06/2025 3:50 PM EDT 238 g pregabalin (LYRICA) capsule 150 mg 150 mg, oral, Nightly, First dose on Sat05/03/25 at 0000, Look-alike/sound-alike medication. Verify indication for use Given 05/05/2025 10:42 PM EDT 150 m g Given 05/04/2025 9:33 PM EDT 150 mg Given 05/03/2025 10:05 PM EDT 150 mg pregabalin (LYRICA) capsule 150 mg 150 mg, oral, Nightly, First dose (after last modification) on [facility] 05/06/25 at 2200, Look-alike/sound-alike medication. Verify indication for use Given 05/10/2025 8:13 PM EDT 150 mg Given 05/09/2025 9:44 PM EDT 150 mg Given 05/08/2025 9:53 PM EDT 150 mg pregabalin (LYRICA) capsule 75 mg 75 mg, oral, 3 times daily, First dose on Sat05/03/25 at 0000, Look-alike/sound-alike medication. Verify indication for use Given 05/05/2025 10:42 PM EDT 75 mg Given 05/05/2025 5:50 AM EDT 75 mg Given 05/04/2025 2:44 PM EDT 75 mg pregabalin (LYRICA) capsule 75 mg 75 mg, oral, 2 times daily, First dose (after last modification) on [facility] 05/06/25 at 0800, Look-alike/sound-alike medication. Verify indication for use Given 05/11/2025 2:37 PM EDT 75 mg Given 05/11/2025 8:42 AM EDT 75 mg Given 05/10/2025 2:29 PM EDT 75 mg sodium chloride 0.9 % bolus 500 mL, intravenous, at 492 mL/hr, Administer over 61 Minutes, Once, On Sat05/02/25 at 2210, For 1 dose Restarted 05/02/2025 10:44 PM EDT 492 mL/hr New Bag 05/02/2025 10:19 PM EDT 500 mL 492 mL/hr sodium chloride 0.9 % flush 3 mL 3 mL, intravenous, As needed, line care, before and after each intermittent use, Starting on 05/02/25 at 2347 Given 05/07/2025 2:55 AM EDT 3 mL sodium chloride 0.9 % flush 3 mL 3 mL, intravenous, Every 12 hours scheduled, First dose on Sat05/03/25 at 0000 Given 05/11/2025 8:43 AM EDT 3 mL Given 05/10/2025 8:14 PM EDT 3 mL Given 05/10/2025 8:49 AM EDT 3 mL sodium chloride 0.9 % flush bag 25 mL, intravenous, at 100 mL/hr, Administer over 15 Minutes, As needed, line care, line care after IVPB administration, Starting on Sat05/02/25 at 2347 Restarted 05/04/2025 5:31 PM EDT 100 mL/hr New Bag 05/04/2025 3:29 PM EDT 25 mL 100 mL/hr sodium chloride 0.9 % infusion 75 mL/hr, intravenous, Continuous, Starting on Sat05/03/25 at 0000, For 1 day Rate/Dose Verify 05/03/2025 5:48 PM EDT 1 00 mL/hr Rate/Dose Change 05/03/2025 5:47 PM EDT 100 mL/ hr New Bag 05/03/2025 5:06 PM EDT 75 mL/hr 75 mL/hr sodium chloride 0.9 % infusion 100 mL/hr, intravenous, Continuous, Starting on Sat05/03/25 at 1745, For 1 day Rate/Dose Verify 05/04/2025 6:36 PM EDT 1 00 mL/hr Rate/Dose Verify 05/04/2025 3:33 PM EDT 100 mL/ hr Rate/Dose Change 05/04/2025 3:24 PM EDT 100 mL/ hr sodium chloride 0.9 % infusion 100 mL/hr, intravenous, Continuous, Starting on Sat05/04/25 at 1830, For 1 day Rate/Dose Verify 05/05/2025 8:07 PM EDT 1 00 mL/hr New Bag 05/05/2025 12:43 PM EDT 100 mL/hr 100 mL/hr New Bag 05/05/2025 1:46 AM EDT 100 mL/hr 100 mL/hr documented in this encounter Active and Recently Administered Medications Times are shown in EDT. Scheduled Medication Order 05/09/2025 05/10/2025 05/11/2025 amiodarone (PACERONE) tablet 200 mg (CANCELED) 200 mg, oral, 2 times daily, First dose on Sat05/03/25 at 0000, Look-alike/sound-alike medication - verify indication for use. 0804 (Given - Provider: Caridad Mccormick RN)0346 (Given - Provider: Yodit Fox RN) 0847 (Given - Provider: Trudy Amin, RN) amiodarone (PACERONE) tablet 200 mg 200 mg, oral, Daily, First dose (after last modification) on Sat05/11/25 at 0900, Look-alike/sound-alike medication - verify indication for use. 0842 (Given - Provider: Lola Huff, RN) clopidogreL (PLAVIX) tablet 75 mg 75 mg, oral, Daily, First dose on Sat05/10/25 at 1900, Look-alike/sound-alike medication - verify indication for use. 2012 (Given - Provider: Yodit Fox RN) 0843 (Given - Provider: Lola Huff, RN) ferrous sulfate tablet 325 mg 325 mg, oral, Daily with breakfast, First dose on Sat05/03/25 at 0800, Give ferrous sulfate 2 hours before or 4 hours after antacids. 0803 (Given - Provider: Caridad Mccormick RN) 0847 (Given - Provider: Trudy Amin, ANALI) 0842 (Given - Provider: Lola Huff, ANALI) furosemide (LASIX) injection 40 mg (COMPLETED) 40 mg, intravenous, Once, On Sat05/10/25 at 1200, For 1 dose, Look-alike/sound-alike medication - verify indication for use. IVP rate = 20 mg/min 1200 (Given - Provider: Trudy Amin, RN) furosemide (LASIX) tablet 40 mg (CANCELED) 40 mg, oral, Daily, First dose on Sat05/09/25 at 1145, Look-alike/sound-alike medication - verify indication for use. 1141 (Given - Provider: Caridad Mccormick, ANALI) 0847 (Given - Provider: Trudy Amin, RN) furosemide (LASIX) tablet 40 mg 40 mg, oral, Daily, First dose on Sat05/11/25 at 1045, Look-alike/sound-alike medication - verify indication for use. 1203 (Given - Provider: Lola Huff, ANALI) insulin glargine (LANTUS, SEMGLEE) injection pen 15 Units 15 Units, subcutaneous, Nightly, First dose (after last modification) on Sat05/08/25 at 2200, Look-alike/sound-alike medication - verify indication for use. Prime with 2 units of insulin prior to administration. Basal (long acting) insulin for subcutaneous administration only. Do not mix with any other insulin. Pre-filled pens stable 28 days at room temperature. 2200 (Not Given - Provider: Yodit Fox RN - Reason: Patient/family refused) 2200 (Not Given - Provider: Yodit Fox RN - Reason: Order parameters not met) insulin lispro (HumaLOG) injection 2-10 Units 2-10 Units, subcutaneous, 4 times daily with meals and nightly, First dose on Sat05/03/25 at 0000, Daytime hyperglycemia dosing. For blood glucose 151-200 mg/dL, give 2 units. For blood glucose 201-250 mg/dL, give 4 units. For blood glucose 251-300 mg/dL, give 6 units. For blood glucose 301-350 mg/dL, give 8 units. For blood glucose 351-400 mg/dL, give 10 units. Give even if NPO or meals skipped. Do NOT give more often then every 4 hours when NPO. Notify prescriber if blood glucose greater than 400 mg/dL. Look-alike/sound-alike medication - verify indication for use. Prime with 2 units of insulin prior to administration. Prandial/supplemental Insulin. Pre-filled pens stable 28 days at room temperature. Insulin lispro should be administered within 15 minutes before or immediately after a meal. 0800 (Not Given - Provider: Caridad Mccormick RN - Reason: Order parameters not met)1128 (Given - Provider: Caridad Mccormick RN)1743 (Given - Provider: Caridad Mccormick RN)2200 (Not Given - Provider: Yodit Fox RN - Reason: Order parameters not met) 0800 (Not Given - Provider: Trudy Amin RN - Reason: Order parameters not met)1200 (Given - Provider: Trudy Amin, ANALI)1826 (Given - Provider: Trudy Amin, RN)2200 (Not Given - Provider: Yodit Fox RN - Reason: Order parameters not met) 0800 (Not Given - Provider: Lola Huff RN - Reason: Order parameters not met - Comment: [id number] (Given - Provider: Lola Huff RN - Comment: [phone] [id number]) metoprolol tartrate (LOPRESSOR) tablet 25 mg 25 mg, oral, 2 times daily, First dose on 05/03/25 at 0000, Look-alike/sound-alike medication - verify indication for use. 0804 (Given - Provider: Caridad Mccormick RN)2144 (Given - Provider: Yodit Fox RN) 0847 (Given - Provider: Trudy Amin RN)2100 (Not Given - Provider: Ydoit Fox RN - Reason: Order parameters not met) 0842 (Given - Provider: Lola Huff RN) miconazole (MICOTIN-7) 2 % vaginal cream 1 applicator 1 applicator, vaginal, Nightly, First dose on 05/09/25 at 2200, For 7 days 2150 (Given - Provider: Yodit Fox RN) 212 (Given - Provider: Yodit Fox RN) pantoprazole (PROTONIX) EC tablet 40 mg 40 mg, oral, 2 times daily before meals, First dose on 05/08/25 at 0700, Look-alike/sound-alike medication - verify indication for use. If patient is receiving enteral feeding, consider alternative PPI or continue IV pantoprazole until the delayed-release tablet can be taken orally, Indication: GERD 0449 (Given - Provider: Yodit Fox RN)0700 (Canceled Entry - Provider: Yodit Fox RN)1527 (Given - Provider: Caridad Mccormick RN) 0537 (Given - Provider: Yodit Fox RN)0700 (Not Given - Provider: Trudy Amin RN - Reason: Other - Comment: given at [phone] (Given - Provider: Trudy Amin RN) 0538 (Given - Provider: Yodit oFx RN)0700 (Canceled Entry - Provider: Yodit Fox RN)1500 (Given - Provider: Lola Huff, ANALI) pregabalin (LYRICA) capsule 150 mg(Linked Group 1) 150 mg, oral, Nightly, First dose (after last modification) on [place] 05/06/25 at 2200, Look-alike/sound-alike medication. Verify indication for use 2143 (Given - Provider: Yodit Fox RN) 2012 (Given - Provider: Yodit Fox RN)2199 (Canceled Entry - Provider: Yodit Fox RN) pregabalin (LYRICA) capsule 75 mg(Linked Group 1) 75 mg, oral, 2 times daily, First dose (after last modification) on [place] 05/06/25 at 0800, Look-alike/sound-alike medication. Verify indication for use 0803 (Given - Provider: Caridad Mccormick RN)1410 (Given - Provider: Caridad Mccormick RN) 0847 (Given - Provider: Trduy Amin, RN)1429 (Given - Provider: Trudy Amin, RN) 0842 (Given - Provider: Lola Huff, RN)1437 (Given - Provider: Lola Huff, RN) sodium chloride 0.9 % flush 3 mL 3 mL, intravenous, Every 12 hours scheduled, First dose on 05/03/25 at 0000 0900 (Not Given - Provider: Caridad Mccormick RN - Reason: IV infusing)2155 (Given - Provider: Yodit Fox RN) 0849 (Given - Provider: Trudy Amin, RN)2013 (Given - Provider: Yodit Fox RN) 0843 (Given - Provider: Lola Huff, ANALI) Continuous Medication Order 05/09/2025 05/10/2025 05/11/2025 heparin infusion 25703 units/500 mL in 0.45% NaCl (50 units/mL premix) (CANCELED) 300-3,500 Units/hr (6-70 mL/hr), intravenous, Continuous, Starting on 05/08/25 at 1230, Please titrate from infusion rate listed above. MAXIMUM Initial Infusion: 2100 units/hr. Heparin High-Intensity Infusion (Non-Cardiology) Heparin Adjustment Table: Anti-Xa Therapeutic Goal: 0.3 - 0.7 IU/mL Anti-Xa results (IU/mL): Anti-Xa every 6 hours after dosage adjustment until therapeutic x 2 then every AM -less than 0.2 IU/mL: bolus 5000 units, increase rate by 150 units/hr (3 mL/hr), next Anti-Xa in 6 hrs. -0.2 - 0.29 IU/mL: increase rate by 100 units/hr (2 mL/hr), next Anti-Xa in 6 hours. -Notify provider if: Anti-Xa less than 0.3 IU per mL for 2 consecutive results. -0.3 - 0.7 IU/mL:Therapeutic level: next Anti-Xa in 6 hours then every AM. -0.71 - 0.8 IU/mL: decrease rate by 50 units/hr (1 mL/hr), next Anti-Xa in 6 hours. -0.81 - 1.6 IU/mL : stop infusion for 30 minutes, decrease rate by 100 units/hr (2 mL/hr), next Anti-Xa in 6 hours. -1.61 - 2 IU/mL: stop infusion for 60 minutes, decrease rate by 150 units/hr (3 mL/hr), next Anti-Xa in 6 hours. - Greater than 2 IU/mL: stop infusion for 90 minutes, decrease rate by 250 units/hr (5 mL/hr), next Anti-Xa in 6 hours. -Notify provider if: Platelet count less than 100,000/mm3 or less than or equal to 50% of baseline. Monitor for signs of bleeding. Look-alike/sound-alike medication - verify indication for use., Indication: DVT, INITIAL Infusion Dose (Units/hr): 1000 units/hr 0657 (Handoff - Provider: Yodit Fox RN)0658 (Rate/Dose Verify - Provider: Yodit Fox RN)1416 (New Bag - Provider: Caridad Mccormick RN) 1619 (New Bag - Provider: Turdy Amin RN) 0604 (Stop Bag - Provider: Yodit Fox RN - Comment: [Order ends at this time. Document the following action when infusion is complete: Stop Bag]) PRN Medication Order 05/09/2025 05/10/2025 05/11/2025 acetaminophen (TYLENOL EXTRA STRENGTH) tablet 500 mg 500 mg, oral, Every 6 hours PRN, mild pain - pain scale 1-3, headaches, temperature greater than 38 C, Temperature greater than 38.3 C, Starting on Sat05/05/25 at 1021, [Warning: Total Acetaminophen not to exceed more than 4 grams (4000 mg) in 24 hours] dextrose (GLUTOSE) 40 % gel 15 g 15 g, oral, As needed, low blood sugar, blood glucose less than 70 mg/dL, Starting on 05/02/25 at 2347, If patient conscious and taking PO. If blood glucose is not greater than 70 mg/dL after initial treatment, repeat treatment. dextrose 5 % (D5W) infusion 100 mL/hr, intravenous, Continuous PRN, blood glucose less than 70 mg/dL, Starting on 05/02/25 at 2347, Use immediately following dextrose 50% or glucagon treatment for patients who are unconscious or NPO. Contact prescriber for additional orders. If blood glucose is not greater than 70 mg/dL after initial treatment, repeat treatment. dextrose 50 % in water (D50W) 50% solution 25 mL 25 mL, intravenous, As needed, low blood sugar, blood glucose less than 70 mg/dL and unconscious or NPO with IV access, Starting on 05/02/25 at 2347, Push over 1-3 minutes STAT. If conscious and not NPO, immediately follow with meal tray or high protein (7 grams) snack if tray not available. If NPO, initiate 5% dextrose in water at 100 mL/hr and contact prescriber for additional orders. If blood glucose is not greater than 70 mg/dL after initial treatment, repeat treatment. VESICANT (RED) Warning: HYPERTONIC solution. glucagon HCL injection 1 mg 1 mg, intramuscular, As needed, low blood sugar, blood glucose less than 70 mg/dL and unconscious or NPO without IV access., Starting on 05/02/25 at 2347, If conscious and not NPO, immediately follow with meal tray or high protein (7Grams) snack if tray not available. If NPO, initiate IV 5% Dextrose/Water at 100 mL/hr and contact prescriber for additional orders. If blood glucose is not greater than 70 mg/dL after initial treatment, repeat treatment. magnesium sulfate IVPB 2000 mg/50 mL in iso-osmotic water (40 mg/mL premix) 2,000 mg, intravenous, at 25 mL/hr, Administer over 120 Minutes, As needed, Magnesium level 1.7 to 1.9 mg/dL, or Ionized Magnesium level 0.45 to 0.5 mmol/L., Starting on 05/02/25 at 2347, Recheck magnesium level 4 hours after infusion complete. With each magnesium result continue the replacement orders as needed. 0448 (New Bag - Provider: Yodit Fox, ANALI)0648 (Stop Bag - Provider: Caridad Mccormick, ANALI) 0853 (New Bag - Provider: Trudy Amin, RN)1053 (Stop Bag - Provider: Trudy Amin, RN) magnesium sulfate IVPB 4000 mg/100 mL in iso-osmotic water (40 mg/mL premix) 4,000 mg, intravenous, at 25 mL/hr, Administer over 240 Minutes, As needed, Magnesium level 1.6 mg/dL or less, or Ionized Magnesium level 0.44 mmol/L or less, Starting on 05/02/25 at 2347, Recheck magnesium level 4 hours after infusion complete. With each magnesium result continue the replacement orders as needed. ondansetron (PF) (ZOFRAN) injection 4 mg 4 mg, intravenous, Every 6 hours PRN, nausea, vomiting, Starting on 05/02/25 at 2347, Intravenous administration preferred to be given over 2-5 minutes. sodium chloride 0.9 % flush 3 mL 3 mL, intravenous, As needed, line care, before and after each intermittent use, Starting on 05/02/25 at 2347 sodium chloride 0.9 % flush bag 25 mL, intravenous, at 100 mL/hr, Administer over 15 Minutes, As needed, line care, line care after IVPB administration, Starting on 05/02/25 at 2347 sodium chloride 0.9 % infusion 20 mL/hr, intravenous, Continuous PRN, to maintain patency of lines, Starting on [place] 05/02/25 at 2347 Linked Groups Order Group 1: pregabalin (LYRICA) capsule 75 mgJump to med 75 mg, oral, 2 times daily, First dose (after last modification) on Mary 05/06/25 at 0800, Look-alike/sound-alike medication. Verify indication for use And pregabalin (LYRICA) capsule 150 mgJump to med 150 mg, oral, Nightly, First dose (after last modification) on Mary 05/06/25 at 2200, Look-alike/sound-alike medication. Verify indication for use documented in this encounter Additional Health Concerns Assessment Noted Time PHQ-9 Depression Total Score: 2 04/08/20 25 8:43 AM EDT documented as of this encounter Care Teams Lead Project Engineer Relationship Specialty Start Date End Date Dagmar Hernandez, ESTIMATOR AND DRAFTER SUPERVISOR-ACADEMIC AFFAIRS MANAGER [address] [place] [id number] PCP - General Nurse Practitioner 06/19/24 documented as of this encounter
--- OUTSIDE RECORDS SUMMARY | 2025-05-07 11:48 | XMS_ITS | Encounter Summary ---
Author Organization [facility] deskwolf [facility] tem Address [id number] [address] [place] [address] Care Team Providers Care Vice President Of Communications Name Role Phone Dagmar Hernandez CANCER REGISTRY MANAGER-DIESEL [employer]BE TECH Primary Care Pro vider Reason for Visit * Auth/Cert Specialty Diagnoses / Procedures Referred By Jj t Referred To Contact Diagnoses Weakness Acute upper GI bleed [facility] - Emergency [address] [place] [address] Phone: tel: fax: Referral ID Status Reason Start Date Expiration Date Visits Re quested Visits Authorized [id number] 1 1 Encounter Details Date Type Department Care Team (Late st Contact Info) Description 05/07/2025 11:48 AM EDT Anesthesia Event [facility] - Surgery [address] [place] [phone] Pedro Aldana MD [address] [place] [address] Anesthesia Record Procedure Summary Procedure Name Responsible Anesthesiologist Anesthesia Start Time Anesthesia Stop Time COLONOSCOPY DIAGNOSTIC / SCREENING Pedro Aldana MD 05/07/25 1148 05/07/25 1210 Events Date Time Event Comment 05/07/2025 1122 1148 An Start 1148 An Start Data 1150 An Induction The patient was reevaluated immediately before moderate or deep sedation use and before anesthesia induction. 1150 Patient Ready for Surgeon 1150 Position 1208 an stop data 1209 Transport/Transfer From the OR 1210 Handoff to RN Transported to :Phase II, Spontaneous Ventilation, O2 per Room Air, 0 LPM Pt. Tolerated procedure well, vital signs stable and document on nursing record Care transferred to receiving RN 1210 An Stop Meds Name Total propofol (DIPRIVAN) injection 100 mg lidocaine (XYLOCAINE) injection 2% 100 m g lactated ringers infusion 0 mL * Agents No agents on file. * Blood No blood administrations on file. Lines, Drains, and Airways Type Details Placement Removal Wound 04/10/25; Y; Skin te ar; Hand; Right 04/10/25 0000 by Di Curry RN Wound 04/10/25; Skin tear; Coccyx 04/10/25 0000 by Di Curry RN Wound 04/11/25; 0820; Skin tear; Arm; Proximal, Right 04/11/25 0820 by Claudia Guevara RN Peripheral IV Placement Date: 12/22; Placement Time: 2013; Catheter Size: 20 G; Orientation: Anterior, Right; Location: Forearm; Site Prep: Chlorhexadine and isopropyl alcohol; Local Anes: None; Technique: Anatomical landmarks; Inserted by: lexi smyth rn; Insertion Attempts: 1; Patient Tolerance: Tolerated well; Removal Date: 05/07/25; Removal Time: 1437; Removal Reason: Patient discharged 05/02/252013 by Rocio Smyth RN 05/07/25 1437 by Idania Rider RN Peripheral IV Placement Date: 01/22; Placement Time: 0807; Catheter Size: 20 G; Orientation: Anterior, Left; Location: Forearm; Site Prep: Chlorhexadine and isopropyl alcohol; Local Anes: None; Technique: Ultrasound guidance; Inserted by: Shelly BRIONES; Insertion Attempts: 2; Patient Tolerance: Tolerated well; Removal Date: 05/07/25; Removal Time: 1437; Removal Reason: Patient discharged 05/03/25 08 by Shelly Ambrocio RN 05/07/25 1437 by Idania Rider RN Urethral Catheter Placement Date: 01/22; Placement Time: 1005; Inserted by: Caridad BRIONES; Type: Single lumen; Size: 16 Fr.; Balloon Size: 10 mL; Urine Returned: Yes; Removal Date: 05/10/25; Removal Time: 63905/03/25 100 by Caridad Mccormick RN 05/10/25639 by Yodit Fox RN documented in this encounter Social History Tobacco Use Types Packs/Day Years Used Date Smoking Tobacco: Former Cigarettes 0.5 10 1 975 - 1984 Smokeless Tobacco: Never Alcohol Use Standard Drinks/Week Comments Not Currently 0 (1 standard drink = 0.6 oz pur e alcohol) [facility] Utilities Answer Date Recorded In the past 12 months has [employer], gas, oil, or water company threatened to shut off services in your [...] on file documented as of this encounter OR Notes * Anesthesia Postprocedure Evaluation - Pedro Aldana MD - 05/07/2025 3:16 PM EDT ANESTHESIA POST-EVALUATION [facility] Procedure Summary Date: 05/07/25 Room / Location: [facility] OR [address] [place] [address] SURGERY Anesthesia Start: 1148 Anesthesia Stop: 1210 Procedure: COLONOSCOPY DIAGNOSTIC / SCREENING Diagnosis: (Anemia) Surgeons: Kelvin Myles MD Responsible Provider: Pedro Aldana MD Anesthesia Type: MAC ASA Status: 3 Vitals: 05/07/25 1239 BP: 149/51 Pulse: 62 Resp: 16 Temp: 36.4 ??C (97.6 ??F) SpO2: 100% Patient Evaluated: PACU Patient Participation: Complete - patient participated Patient Level of Consciousness: Awake Pain Score: 1 Pain Management: Adequate Airway Patency: Patent Anesthetic Complications: No Cardiovascular Status: Hemodynamically Stable Respiratory Status: Stable/Baseline, Nonlabored Ventilation and Room Air Post-op Hydration: Euvolemic Final Anesthesia Type: MAC Does patient meet criteria to D/C from PACU?: Yes Is patient sedated pharmacologically at PACU D/C?: No No notable events documented. * Anesthesia Preprocedure Evaluation - Pedro Aldana MD - 05/07/2025 11:21 AM EDT Images from the original note were not included. ANESTHESIA PRE-PROCEDURE EVALUATION [facility] Procedure(s): COLONOSCOPY DIAGNOSTIC / SCREENING ANESTHESIA PHYSICAL EXAM Patient summary reviewed and nursing notes reviewed. Echocardiogram reviewed and stress test reviewed Airway Mallampati: II TM distance: >3 FB Neck ROM: full Patient is not intubated Patient does not have tracheostomy Dental : exam normal (+) Upper Dentures, Poor Dentition Pulmonary : exam normal Cardiovascular : exam normal ECG reviewed Neuro Abdominal : exam normal Other Findings ANESTHESIA PLAN ASA 3 Anesthesia Type: MAC Induction: Intravenous Anesthetic risks, plan and alternatives discussed with Patient and Spouse. Use of blood products discussed with Patient and Spouse who consented to blood products. Plan discussed with Attending and SKETCH MAKER. Airway Management: Nasal Cannula and Awake/Sedated Post op Pain Management: IV Analgesics Transfer to Phase II PONV: Intermediate Risk Total Score: 2 Female patient Non-smoker Criteria that do not apply: History of PONV and/or Motion Sickness Intended opioid administration RCRI: Low Risk: Score of 0 = 3.9% (2.8-5.4%) Risk of major cardiac event Score of 1 = 6.0% (4.9-7.4%) Risk of major cardiac event Total Score: 1 Ischemic Heart Disease Criteria that do not apply: Cerebrovascular Disease Congestive Heart Failure Elevated Risk Surgery Pre-operative Treatment with Insulin Pre-operative Creatinine >2 mg/dL / 176.8 mol/L Patient Active Problem List Diagnosis Palpitations Hypertension Normocytic anemia Arthritis BMI 40.0-44.9, adult ([facility] Cervical spondylosis without myelopathy Chronic pain Type 2 diabetes mellitus with diabetic polyneuropathy, with long-term current use of insulin ([facility]) Former smoker Gout Polyneuropathy Vitamin B12 deficiency Vitamin D deficiency Over weight S/P lumbar discectomy Acute kidney injury superimposed on CKD Depression Hyperlipidemia Osteoporosis Disorder of sacrum Primary osteoarthritis of right hip Lumbosacral spondylosis without myelopathy Stage 3b chronic kidney disease (CKD) ([facility] Hyperkalemia Gastroenteritis C. difficile colitis Ischemic bowel disease Personal history of colonic polyps Fundic gland polyposis of stomach Polyp of transverse colon Spinal stenosis of lumbar region with neurogenic claudication Restless leg syndrome Pneumonia of both lower lobes due to infectious organism Weakness ASCVD (arteriosclerotic cardiovascular disease) Paroxysmal atrial fibrillation ([facility]) Bilateral lower extremity edema Anemia of chronic disease Iron deficiency anemia due to chronic blood loss ERRONEOUS ENCOUNTER--DISREGARD Fall, initial encounter Severe malnutrition Acute upper GI bleed Vaginal bleeding Left lower lobe pulmonary infiltrate Acute kidney injury superimposed on stage 3b chronic kidney disease ([facility]) documented in this encounter Plan of Treatment Upcoming Encounters Date Type Department Care Team (Late st Contact Info) Description 05/21/2025 9:30 AM EDT Hospital Encounter [facility] - Pet Imaging [address] [place] [phone] 05/25/2025 10:15 AM EDT Office Visit [facility] [address] [place] [phone] Kelvin Myles MD [address] [place] [address] 06/03/2025 11:15 AM EDT Office Visit [facility] - Medical Oncology [address] [place] [phone] Rowdy Riley MD [address] [place] [address] 07/29/2025 3:30 PM EDT Office Visit [facility] Neurology, A Department of [facility] [address] [phone] Janice Bhat APRN-D[employer]EL [employer]BE TECH [address] [phone] 07/30/2025 2:30 PM EDT Office Visit [facility] - Medical Oncology [address] [place] [phone] Rowdy Riley MD [address] [place] [address] documented as of this encounter Goals Goal Patient Goal Type Associated Problems Recent Progress Patient-Stated? Author SNF General Yes Jeaneth Markham LSW Note: Evaluation of progress towards goal: will need PT/OT evaluations to assist with determining needed DC LOC documented as of this encounter Visit Diagnoses Not on filedocumented in this encounter Administered Medications Inactive Administered Medications - up to 3 most recent administrations Medication Order MAR Action Action Date Dose Rate Site lactated ringers infusion intravenous, Continuous PRN, Starting on Sat05/07/25 at 1143, Anesthesia Intra-op New Bag 05/07/2025 11:43 AM EDT lidocaine (XYLOCAINE) 20 mg/mL (2 %) injection intravenous, As needed, Starting on Sat05/07/25 at 1150, Anesthesia Intra-op Given 05/07/2025 11:55 AM EDT 50 mg Given 05/07/2025 11:50 AM EDT 50 mg propofoL (DIPRIVAN) infusion intravenous, As needed, Starting on Sat05/07/25 at 1150, Anesthesia Intra-op Given 05/07/2025 11:55 AM EDT 50 mg Given 05/07/2025 11:50 AM EDT 50 mg documented in this encounter Additional Health Concerns Assessment Noted Time PHQ-9 Depression Total Score: 2 04/08/20 25 8:43 AM EDT documented as of this encounter Care Teams Vice President Of Communications Relationship Specialty Start Date End Date Dagmar Hernandez, CANCER REGISTRY MANAGER-[employer] TECH [address] [place] [phone] PCP - General Nurse Practitioner 06/19/24 documented as of this encounter
--- OUTSIDE RECORDS SUMMARY | 2025-05-07 12:00 | XMS_ITS | Encounter Summary ---
Author Organization [facility] tem Address [id number] [address] [place] [address] Care Team Providers Care Promotions Assistant Name Role Phone Dagmar Hernandez HEATING AND VENTILATING DRAFTER-DOORMAKER Primary Care Pro vider Reason for Visit * Reason Comments Weakness - Generalized Fatigue * Auth/Cert Specialty Diagnoses / Procedures Referred By Conteddie t Referred To Contact Diagnoses Weakness Acute upper GI bleed [facility] - Emergency [address] [place] [address] Phone: tel: fax: Referral ID Status Reason Start Date Expiration Date Visits Re quested Visits Authorized [id number] 1 1 Encounter Details Date Type Department Care Team (Late st Contact Info) Description 05/07/2025 12:00 PM EDT - 05/07/2025 12:45 PM EDT Surgery [facility] - Surgery [address] [place] [address] Kelvin Myles MD [address] [place] [id number] COLONOSCOPY DIAGNOSTIC / SCREENING Surgery Details Date/Time Status Location OR Service Patient Class Case Class Case Type Trauma Case? 05/07/2025 12:00 PM Posted [facility] OR 06 General Inpatient Class III Emergency Panel 1 Procedure LRB Anes Op Region Wound Class Comments COLONOSCOPY DIAGNOSTIC / SCREENING N/A Monitored Anesthesia Care Clean Contaminated sigmoid biopsies, short segment colitis, diverticulosis Surgeon Surgeon Role Service Panel Kelvin Myles MD Primary General 1 documented in this encounter Social History Tobacco Use Types Packs/Day Years Used Date Smoking Tobacco: Former Cigarettes 0.5 10 1 975 - 1984 Smokeless Tobacco: Never Alcohol Use Standard Drinks/Week Comments Not Currently 0 (1 standard drink = 0.6 oz pur e alcohol) [facility] Utilities Answer Date Recorded In the past 12 months has th e electric, gas, oil, or water [employer] threatened to shut off services in your [...] Sign Reading Time Taken Comments Blood Pressure 149/51 05/07/2025 12:39 PM EDT Pulse 62 05/07/2025 12:39 PM EDT Temperature 36.4 C (97.6 F) 05/07/2025 12:39 PM EDT Respiratory Rate 16 05/07/2025 12:39 PM EDT Oxygen Saturation 100% 05/07/2025 12:39 PM EDT Inhaled Oxygen Concentration - - Weight 97.6 kg (215 lb 1.6 oz) 05/07/2025 6:08 A M EDT Height 157.5 cm (5' 2 ) 05/05/2025 1:36 PM EDT Body Mass Index 38.21 05/05/2025 1:36 PM EDT documented in this encounter Functional Status documented as of this encounter Discharge Summaries * Wesly Morse MD - 05/11/2025 10:44 AM EDT Images from the original note were not included. [facility] INTERNAL MEDICINE [facility] [address] [facility] [phone] Hospital Medicine Discharge Summary Patient: Irma Caceres Date of : 1945 Room: [facility] Encounter date: 05/11/25 Hospital Day: 10 DATE OF ADMISSION: 05/02/2025 DATE OF DISCHARGE:05/11/2025 DISCHARGE DIAGNOSES Principal Problem: Acute upper GI bleed Active Problems: Hypertension Type 2 diabetes mellitus with diabetic polyneuropathy, with long-term current use of insulin ([facility]) Vitamin B12 deficiency Hyperlipidemia Hyperkalemia Weakness Paroxysmal atrial fibrillation ([facility]) Iron deficiency anemia due to chronic blood loss Vaginal bleeding Left lower lobe pulmonary infiltrate Acute kidney injury superimposed on stage 3b chronic kidney disease ([facility]) Pressure ulcer of left heel, stage 1 Dermatitis associated with moisture Acute on chronic combined systolic and diastolic congestive heart failure ([facility]) CONSULTANTS High Lead Yarder- low suspicion for crusher wet ground mica etiology can follow up outpatient Planned EGD colonoscopy 05/05/2025 PCP: DAGMAR HERNANDEZ, HEATING AND VENTILATING DRAFTER-DOORMAKER PROCEDURES Colonoscopy - Segmental moderate inflammation characterized [...] while here. PT and OT seen recommended custodial facility and agreeable. Patient stayed over the weekend waiting for insurance approval. Stable to discharge to nursing facility will need close follow up with general surgeon crusher wet ground mica and Urology. Multiple medication changes at time [...] only until follow up on pathology from [facility]. Review of Systems Constitutional: Positive for malaise/fatigue. [...] on 04/10/2025 8:35 PM DISCHARGE INSTRUCTION Disposition: [facility] facility Condition:Stable Activity: activity as tolerated Diet: Adult nutrition supplements Adult diet Regular Texture Adult diet Follow up: DAGMAR HERNANDEZ APRN-DWIGHT within 7-[address] Myles CATHOLIC PRIEST Urology Labs/Imaging/Pathology: CMP and CBC one week [...] Your Medications These medications were sent to [facility] [address] [place] [address] [address] [place] [address] [address] furosemide 40 mg tablet pantoprazole 40 mg [...] this patient. DANIELLE Brantley 05/11/2025 3:42 PM [facility] Internal Medicine 7AM-7PM & 7PM-7AM: EpicChat or page through On-Call Finder. DANIELLE Brantley 05/11/25 1047 Physician Attestation I, Wesly Morse MD, personally [...] 5:19 PM EDT Follow up with Dr Shar oconnell discuss biopsy result Follow up with PCP and cardiology Continue to hold Eliquis until biopsy result * Attachments The following attachments cannot be sent through Care Everywhere. * GI bleed ??? Discharge instructions (Zambian) documented in this encounter Medications at Time [...] daily for 30 days. 30 tablet 05/11/2025 5 metoprolol tartrate (LOPRESSOR) 25 mg tablet TAKE [...] breakfast for 30 days. 40 tablet 05/11/2025 polyethylene glycol (GLYCOLAX) 17 gram packet Take [...] from the original note were not included. [facility] INTERNAL MEDICINE [facility] [place] [id number] [facility] [phone] Hospital Medicine Progress Note Patient: Irma Caceres [...] polyneuropathy, with long-term current use of insulin ([facility]) Vitamin B12 deficiency Hyperlipidemia Hyperkalemia Weakness Paroxysmal atrial fibrillation ([facility]) Iron deficiency anemia due to chronic blood loss Vaginal bleeding Left lower lobe pulmonary infiltrate Acute kidney injury superimposed on stage 3b chronic kidney disease ([facility]) Transaminitis ASSESSMENT & PLAN Acute upper GI [...] - resolved -check ultrasound abdomen pelvis -unremarkable -crusher wet ground mica consulted - do not feel this is crusher wet ground mica etiology Left lower lobe infiltrate community acquired [...] Type 2 DM with diabetic polyneuropathy with termite exterminator insulin use -continue with Lantus and a.c. [...] PCI or further cardiac testing -continue on quality assurance monitor final -continue on amiodarone and Lopressor -holding thinners [...] Recent subdural hematoma discharged on 04/12 from [facility] -this was after a trip & fall [...] Medically Ready for Discharge: Anticipated Tomorrow - DANIELLE Brantley 05/10/25 6:50 PM [facility] Internal Medicine 7AM-7PM & 7PM-7AM: EpicChat or page through On-Call Finder. DANIELLE Brantley 05/10/25 5115 Physician Attestation I, Wesly Morse MD, personally [...] from the original note were not included. [facility] INTERNAL MEDICINE [facility] [address] [facility] [phone] Hospital Medicine Progress Note Patient: Irma Caceres [...] Tubes. Procedure Abnormality Status --------- ------ PST TOP[[id number]] Final result Lavender Top[[id number]] Final result Please view results for these [...] polyneuropathy, with long-term current use of insulin ([facility]) Vitamin B12 deficiency Hyperlipidemia Hyperkalemia Weakness Paroxysmal atrial fibrillation ([facility]) Iron deficiency anemia due to chronic blood loss Vaginal bleeding Left lower lobe pulmonary infiltrate Acute kidney injury superimposed on stage 3b chronic kidney disease ([facility]) ASSESSMENT & PLAN Acute upper GI bleed [...] ??Vaginal bleeding -check ultrasound abdomen pelvis -unremarkable -crusher wet ground mica consulted - do not feel this is crusher wet ground mica etiology Left lower lobe infiltrate community acquired [...] Type 2 DM with diabetic polyneuropathy with correction insulin use -continue with Lantus and a.c. [...] PCI or further cardiac testing -continue on quality assurance monitor final -continue on amiodarone and Lopressor -holding thinners for now until biopsy results returned from EGD. Follow up with PCP and Gen surgery -cardio consulted for med recs d/c elevated LFTs while on amio and bleeding on eliquis -doppler for lower legs, heparin gtt initiated on 05/08, if no bleeding start eliquis Saturday Recent subdural hematoma discharged on 04/12 from [facility] -this was after a trip & fall [...] -did not leave d/t pending insurance at [facility] Medically Ready for Discharge: Anticipated in 2-4 Days DANIELLE Baig 05/09/2025 9:57 AM [facility] Internal Medicine 7AM-7PM & 7PM-7AM: [...] Awaiting biopsy result Dr Laina Rome MD, [facility] 05/09/2025 1:43 PM * Laina Rome MD - 05/08/2025 10:48 AM EDT Images from the original note were not included. [facility] INTERNAL MEDICINE [facility] [address] [facility] [phone] Hospital Medicine Progress Note Patient: Irma Caceres [...] polyneuropathy, with long-term current use of insulin ([facility]) Vitamin B12 deficiency Hyperlipidemia Hyperkalemia Weakness Paroxysmal atrial fibrillation ([facility]) Iron deficiency anemia due to chronic blood loss Vaginal bleeding Left lower lobe pulmonary infiltrate Acute kidney injury superimposed on stage 3b chronic kidney disease ([facility]) ASSESSMENT & PLAN Acute upper GI bleed [...] ??Vaginal bleeding -check ultrasound abdomen pelvis -unremarkable -crusher wet ground mica consulted - do not feel this is crusher wet ground mica etiology Left lower lobe infiltrate community acquired [...] Type 2 DM with diabetic polyneuropathy with correction insulin use -continue with Lantus and a.c. [...] PCI or further cardiac testing -continue on quality assurance monitor final -continue on amiodarone and Lopressor -holding thinners for now until biopsy results returned from EGD. Follow up with PCP and Gen surgery -cardio consulted for med recs d/c elevated LFTs while on amio and bleeding on eliquis -doppler for lower legs, heparin gtt today if no bleeding start eliquis Saturday Recent subdural hematoma discharged on 04/12 from [facility] -this was after a trip & fall [...] -did not leave d/t pending insurance at [facility] Medically Ready for Discharge: Anticipated in 2-4 Days DANIELLE Baig 05/08/2025 10:48 AM [facility] Internal Medicine 7AM-7PM & 7PM-7AM: EpicChat or page through On-Call Finder. DANIELLE Baig 05/08/25 1051 I, Laina Rome MD, personally performed the [...] from the original note were not included. [facility]IC[facility] [address] [facility] [phone] Hospital Medicine Progress Note Patient: Irma Caceres Date of : 1945 Room: [facility] PCP: DANIELLE OLSON Admission date: 05/02/2025 8:05 [...] polyneuropathy, with long-term current use of insulin ([facility]) Vitamin B12 deficiency Hyperlipidemia Hyperkalemia Weakness Paroxysmal atrial fibrillation ([facility]) Iron deficiency anemia due to chronic blood loss Vaginal bleeding Left lower lobe pulmonary infiltrate Acute kidney injury superimposed on stage 3b chronic kidney disease ([facility]) ASSESSMENT & PLAN Acute upper GI bleed [...] ??Vaginal bleeding -check ultrasound abdomen pelvis -unremarkable -crusher wet ground mica consulted - do not feel this is crusher wet ground mica etiology Left lower lobe infiltrate community acquired [...] Type 2 DM with diabetic polyneuropathy with termite exterminator insulin use -continue with Lantus and a.c. [...] PCI or further cardiac testing -continue on quality assurance monitor final -continue on amiodarone and Lopressor -holding thinners for now until biopsy results returned from EGD. Follow up with PCP and Gen surgery -cardio consulted for med recs d/c elevated LFTs while on amio and bleeding on eliquis Recent subdural hematoma discharged on 04/12 from [facility] -this was after a trip & fall [...] Ready Now DANIELLE Baig 05/09/2025 12:20 PM [facility] Internal Medicine 7AM-7PM & 7PM-7AM: EpicChat or page through On-Call Finder. DANIELLE Baig 05/09/25 1221 I, Laina Rome MD, personally performed the face to face diagnostic evaluation on this patient on 05/07. I have reviewed the CLAIRE's History, Exam, and MDM and agree with the assessment and plan as written. I have reviewed all laboratory findings and imaging reports/films. Dr Laina Rome MD, MRCP 05/09/2025 2:00 PM * Laina Rome MD - 05/06/2025 10:31 AM EDT Images from the original note were not included. [facility] [place] [facility] INTERNAL MEDICINE [facility] [address] [place] [phone] Hospital Medicine Progress Note Patient: Irma Caceres [...] Procedure Abnormality Status --------- ------ Light Blue Top[[id number]] Final result Please view results for these [...] polyneuropathy, with long-term current use of insulin ([facility]) Vitamin B12 deficiency Hyperlipidemia Hyperkalemia Weakness Paroxysmal atrial fibrillation ([facility]) Iron deficiency anemia due to chronic blood loss Vaginal bleeding Left lower lobe pulmonary infiltrate Acute kidney injury superimposed on stage 3b chronic kidney disease ([facility]) ASSESSMENT & PLAN Acute upper GI bleed -hold blood thinners -last dose of eliquis was 8/3 -iron daily -Protonix drip -H&H every 8 hours -general surgery consulted- EGD showing gastric mass, awaiting biopsy. Colonoscopy tomorrow. -CT ab/pelvis- Severe aortoiliac and mesenteric atherosclerotic changes, lipitor/thinners currentlyon hold ??Vaginal bleeding -check ultrasound abdomen pelvis -unremarkable -crusher wet ground mica consulted - do not feel this is crusher wet ground mica etiology Left lower lobe infiltrate community acquired [...] Type 2 DM with diabetic polyneuropathy with termite exterminator insulin use -continue with Lantus and a.c. [...] PCI or further cardiac testing -continue on quality assurance monitor final -continue on amiodarone and Lopressor -holding thinners for now -cardio consulted for med recs d/c elevated LFTs while on amio and bleeding on eliquis Recent subdural hematoma discharged on 04/12 from [facility] -this was after a trip & fall [...] 2-4 Days DANIELLE Baig 05/06/2025 10:31 AM [facility] Internal Medicine 7AM-7PM & 7PM-7AM: EpicChat or page through On-Call Finder. DANIELLE Baig 05/06/25 0124 I, Laina Rome MD, personally performed the [...] from the original note were not included. [facility] [place] [facility] INTERNAL MEDICINE [facility] [address] [facility] [phone] Hospital Medicine Progress Note Patient: Irma Caceres Date of : 1945 Room: PCP: DAGMAR HERNANDEZ, HEATING AND VENTILATING DRAFTER-DOORMAKER Admission date: 05/02/2025 8:05 PM Encounter date: [...] Procedure Abnormality Status --------- ------ Light Blue Top[[id number]] Final result Please view results for these [...] polyneuropathy, with long-term current use of insulin ([facility]) Vitamin B12 deficiency Hyperlipidemia Hyperkalemia Weakness Paroxysmal atrial fibrillation ([facility]) Iron deficiency anemia due to chronic blood loss Vaginal bleeding Left lower lobe pulmonary infiltrate Acute kidney injury superimposed on stage 3b chronic kidney disease ([facility]) ASSESSMENT & PLAN Acute upper GI bleed -hold blood thinners -last dose of eliquis was 8/3 -iron daily -Protonix drip -H&H every 8 hours -transfuse 1 unit of blood -general surgery consulted- colonoscopy today -CT ab/pelvis- Severe aortoiliac and mesenteric atherosclerotic changes, lipitor/thinners currentlyon hold Vaginal bleeding -check ultrasound abdomen pelvis -unremarkable -crusher wet ground mica consulted - do not feel this is crusher wet ground mica etiology Left lower lobe infiltrate community acquired [...] Type 2 DM with diabetic polyneuropathy with correction insulin use -continue with Lantus and a.c. [...] PCI or further cardiac testing -continue on quality assurance monitor final -continue on amiodarone and Lopressor -holding thinners for now Recent subdural hematoma discharged on 04/12 from [facility] -this was after a trip & fall [...] Discharge: Anticipated in 2-4 Days DANIELLE Baig 05/05/2025 1:26 PM [facility] Internal Medicine 7AM-7PM & 7PM-7AM: EpicChat or page through On-Call Finder. DANIELLE Baig 05/05/25 1335 I, Laina Rome MD, personally performed the [...] from the original note were not included. [facility] INTERNAL MEDICINE [facility] [address] [facility] [phone] Hospital Medicine Progress Note Patient: Irma Caceres Date of : 1945 Room: /01 PCP: DANIELLE OLSON Admission date: 05/02/2025 8:05 [...] polyneuropathy, with long-term current use of insulin ([facility]) Vitamin B12 deficiency Hyperlipidemia Hyperkalemia Weakness Paroxysmal atrial fibrillation ([facility]) Iron deficiency anemia due to chronic blood loss Vaginal bleeding Left lower lobe pulmonary infiltrate Acute kidney injury superimposed on stage 3b chronic kidney disease ([facility]) ASSESSMENT & PLAN Acute upper GI bleed -hold blood thinners -last dose of eliquis was 8/3 -iron daily -Protonix drip -H&H every 8 hours -transfuse 1 unit of blood -general surgery consulted- bowel prep today, colonoscopy tomorrow -CT ab/pelvis- Severe aortoiliac and mesenteric atherosclerotic changes, lipitor/thinners currentlyon hold Vaginal bleeding -check ultrasound abdomen pelvis -unremarkable -crusher wet ground mica consulted - do not feel this is crusher wet ground mica etiology Left lower lobe infiltrate community acquired [...] Type 2 DM with diabetic polyneuropathy with termite exterminator insulin use -continue with Lantus and a.c. [...] PCI or further cardiac testing -continue on quality assurance monitor final -continue on amiodarone and Lopressor -holding thinners for now Recent subdural hematoma discharged on 04/12 from [facility] -this was after a trip & fall [...] 2-4 Days DANIELLE Baig 05/04/2025 10:16 AM [facility] Internal Medicine 7AM-7PM & 7PM-7AM: EpicChat or page through On-Call Finder. DANIELLE Baig 05/04/25 5595 I, Laina Rome MD, personally performed the [...] Hypertension Normocytic anemia Arthritis BMI 40.0-44.9, adult ([facility]) Cervical spondylosis without myelopathy Chronic pain Type 2 diabetes mellitus with diabetic polyneuropathy, with long-term current use of insulin ([facility]) Former smoker Gout Polyneuropathy Vitamin B12 deficiency Vitamin D deficiency Over weight S/P lumbar discectomy Acute kidney injury superimposed on CKD Depression Hyperlipidemia Osteoporosis Disorder of sacrum Primary osteoarthritis of right hip Lumbosacral spondylosis without myelopathy Stage 3b chronic kidney disease (CKD) ([facility]) Hyperkalemia Gastroenteritis C. difficile colitis Ischemic bowel disease Personal history of colonic polyps Fundic gland polyposis of stomach Polyp of transverse colon Spinal stenosis of lumbar region with neurogenic claudication Restless leg syndrome Pneumonia of both lower lobes due to infectious organism Weakness ASCVD (arteriosclerotic cardiovascular disease) Paroxysmal atrial fibrillation ([facility]) Bilateral lower extremity edema Anemia of chronic disease Iron deficiency anemia due to chronic blood loss ERRONEOUS ENCOUNTER--DISREGARD Fall, initial encounter Severe malnutrition Acute upper GI bleed Vaginal bleeding Left lower lobe pulmonary infiltrate Acute kidney injury superimposed on stage 3b chronic kidney disease ([facility]) Past Medical History: Past Medical History: Diagnosis Date Anemia Angina pectoris Arthritis C. difficile colitis 06/2023 still tx 08/08/23 Chronic kidney disease Chronic pain disorder Depression Diabetes mellitus type 2, controlled ([facility]) GERD (gastroesophageal reflux disease) Hyperlipidemia Hypertension Ischemic bowel disease Kidney stone hx Low back pain Myocardial infarction ([facility]) Obesity Osteoarthritis Osteoporosis Palpitations Paroxysmal A-fib ([facility]) Pneumonia 08/2024 Visual impairment Past Surgical History: Past Surgical History: Procedure Laterality Date APPENDECTOMY 1955 BACK SURGERY x 2 BREAST BIOPSY Left 06/03/2001 BREAST BIOPSY Left 1998 BREAST BIOPSY Left 2006 CARDIAC CATHETERIZATION CHOLECYSTECTOMY 1974 COLONOSCOPY N/A 05/22/2023 Performed by Triston Sanford DO at [facility] CORONARY ANGIOPLASTY WITH STENT PLACEMENT 08/10/2024 x1 ESOPHAGOGASTRODUODENOSCOPY N/A 05/22/2023 Performed by Triston Sanford DO at [facility] HERNIA REPAIR HYSTERECTOMY 1981 INJECTION BLOCK EPIDURAL CAUDAL STEROID N/A 11/01/2023 Performed by Xu Campa MD at [facility] INJECTION BLOCK NERVE MEDIAL BRANCH: bilat L 4/5 5/1 Bilateral 06/21/2023 Performed by Xu Campa MD at [facility] INJECTION BLOCK NERVE MEDIAL BRANCH: bilat L 4/5 5/ Bilateral 02/22/2023 Performed by Xu Campa MD at [facility] INJECTION BLOCK SACROILIAC JOINT Right 02/07/2024 Performed by Xu Campa MD at [facility] INJECTION BLOCK SACROILIAC JOINT Right 09/13/2023 Performed by Xu Campa MD at [facility] INJECTION BLOCK SACROILIAC JOINT Right 11/09/2022 Performed by Xu Campa MD at [facility] INJECTION BURSA LARGE JOINT: right hip Right 12/28/2022 Performed by Xu Campa MD at [facility] INJECTION BURSA LARGE JOINT: right hip Right 07/19/2023 Performed by Xu Campa MD at [facility] OOPHORECTOMY ROTATOR CUFF REPAIR x 3 TUBAL LIGATION 1974 Diet History: noted good 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 Allergies: Allergies Allergen Reactions Codeine affected my breathing , tylenol #3 specifically Sulfa (Sulfonamide Antibiotics) GI Disturbance Sulfamethoxazole-Trimethoprim Other reaction(s): Vomiting Trimethobenzamide Nutrition Focused Physical Findings-- noted pressure injury on coccyx and right calf As per nutrition flow sheet- Skin: Skin Color: Prem, Ecchymosis, [place] (05/03/25 1210) Skin Temp: Warm, Dry (05/03/25 1210) Skin Integrity: Bruising (scattered throughout body.) (05/02/252020) Wound: Wound 04/10/25 Skin Tear Coccyx-Site Assessment: Red (05/03/25 1100) Gastrointestinal: Edema: RLE Edema: +4 (05/03/25 1210) LLE Edema: +4 (05/03/25 1210) Labs: Results from last 3 days Lab Units 05/03/25 0414 05/02/25 2106 SODIUM mmol/L 129* 126* POTASSIUM mmol/L 4.4 5.5* CHLORIDE mmol/L 98 93* CO2 mmol/L 22 24 BUN mg/dL 97* 134* CREATININE mg/dL 3.65* 3.79* CALCIUM mg/dL 8.1* 8.1* ALBUMIN g/dL 2.4* 2.8* ALK PHOS U/L 137* 166* ALT U/L 142* 141* AST U/L 248* 225* Results from last 7 days Lab Units 05/03/25 1159 05/03/25 0414 05/03/25 01305/02/252105 BEDSIDE GLUCOSE mg/dL 77 -- 187* -- GLUCOSE mg/dL -- 89 -- 231* Results from last 3 days Lab Units 05/03/25 04105/02/252105 MAGNESIUM mg/dL 1.8 1.9 No data from last 3 days. Results from last 3 days Lab Units 05/03/25 0414 05/02/252105 WBC x10E9/L 11.2* 18.1* HEMOGLOBIN g/dL 6.7* 7.4* HEMATOCRIT % 20.4* 22.6* PLATELETS X10E9/L 195 202 MCV fL 88 88 Lab Results Component Value Date [id number] >1,500 (H) 09/20/2024 Lab Results Component Value [...] mg 650 mg oral Q6H PRN Luigi D Krotzer, HEATING AND VENTILATING DRAFTER-DOORMAKER amiodarone (PACERONE) tablet 200 mg 200 mg oral BID Luigi D Krotzer, HEATING AND VENTILATING DRAFTER-DOORMAKER 200 mg at 05/03/25 0832 dextrose (GLUTOSE) 40 % gel 15 g 15 g oral PRN Luigi D Krotzer, HEATING AND VENTILATING DRAFTER-DOORMAKER dextrose 5 % (D5W) infusion 100 mL/hr intravenous Continuous PRN Luigi D Krotzer, HEATING AND VENTILATING DRAFTER-DOORMAKER dextrose 50 % in water (D50W) 50% solution 25 mL 25 mL intravenous PRN Luigi D Krotzer, HEATING AND VENTILATING DRAFTER-DOORMAKER ferrous sulfate tablet 325 mg 325 mg oral Daily with breakfast Luigi D Krotzer, HEATING AND VENTILATING DRAFTER-DOORMAKER 325 mg at 05/03/25 0832 glucagon HCL injection 1 mg 1 mg intramuscular PRN Luigi D Krotzer, HEATING AND VENTILATING DRAFTER-DOORMAKER insulin glargine (LANTUS, SEMGLEE) injection pen 20 Units 20 Units subcutaneous Nightly Luigi D Krotzer, HEATING AND VENTILATING DRAFTER-DOORMAKER 20 Units at 05/03/25 0208 insulin lispro (HumaLOG) injection 2-10 Units 2-10 Units subcutaneous With meals and nightly Luigi DONNArotzer, HEATING AND VENTILATING DRAFTER-DOORMAKER 2 Units at 05/03/25 0209 magnesium sulfate IVPB 2000 mg/50 mL in iso-osmotic water (40 mg/mL premix) 2,000 mg intravenous PRN Luigi D Krotzer, HEATING AND VENTILATING DRAFTER-DOORMAKER magnesium sulfate IVPB 4000 mg/100 mL in iso-osmotic water (40 mg/mL premix) 4,000 mg intravenous PRN Luigi D Krotzer, HEATING AND VENTILATING DRAFTER-DOORMAKER metoprolol tartrate (LOPRESSOR) tablet 25 mg 25 mg oral BID Luigi D Krotzer, HEATING AND VENTILATING DRAFTER-DOORMAKER 25 mg at 05/03/25 0205 ondansetron (PF) (ZOFRAN) injection 4 mg 4 mg intravenous Q6H PRN Luigi D Krotzer, HEATING AND VENTILATING DRAFTER-DOORMAKER pantoprazole (PROTONIX) 80 mg in sodium chloride 0.9 % 100 mL (0.8 mg/mL) infusion 8 mg/hr intravenous Continuous Ivania Trevino, HEATING AND VENTILATING DRAFTER-DOORMAKER 10 mL/hr at 05/03/25 0830 8 mg/hr at 05/03/25 0830 pregabalin (LYRICA) capsule 75 mg 75 mg oral TID Luigi D Krotzer, HEATING AND VENTILATING DRAFTER-DOORMAKER And pregabalin (LYRICA) capsule 150 mg 150 mg oral Nightly Luigi D Krotzer, HEATING AND VENTILATING DRAFTER-DOORMAKER 150 mg at 05/03/25 0205 sodium chloride 0.9 % flush 3 mL 3 mL intravenous PRN Luigi D Krotzer, HEATING AND VENTILATING DRAFTER-DOORMAKER sodium chloride 0.9 % flush 3 mL 3 mL intravenous Q12H HUNG Luigi D Krotzer, HEATING AND VENTILATING DRAFTER- DOORMAKER 3 mL at 05/03/25 0205 sodium chloride 0.9 % flush bag 25 mL intravenous PRN Luigi D Krotzer, HEATING AND VENTILATING DRAFTER-DOORMAKER sodium chloride 0.9 % infusion 20 mL/hr intravenous Continuous PRN Luigi D Krotzer, HEATING AND VENTILATING DRAFTER-DOORMAKER sodium chloride 0.9 % infusion 75 mL/hr intravenous Continuous Luigi D Krotzer, HEATING AND VENTILATING DRAFTER-DOORMAKER 75 mL/hr at05/03/25 0530 Rate Verify at 05/03/25 0530 sodium chloride 0.9 % infusion 20 mL/hr intravenous Continuous PRN Bethanie Marquez, HEATING AND VENTILATING DRAFTER-DOORMAKER Nutrition Findings/Summary: noted gradual wt gain to [...] 02/25/25 100.6 kg (221 lb 12.8 oz) Frannie Body Weight: 50 kg Percent Frannie Body Weight: 211 % Body Mass Index: [...] <25% [] NPO [] Unable to assess Frannie Body Weight (50 kg) used to estimate nutrition needs Estimated Energy Needs: ~1588-4120 kcals daily. Method and weight used: 28-32 kcal/kg IBW Estimated Protein Needs: ~60-100 grams daily. Method and weight used: 1.2-2.0 gm/kg IBW Estimated Fluid Needs: ~9484-0610 ml daily. Method Used: 1 ml/kcal General [...] Goal achieved Rosanna Ponce RD.,LD. Clinical Dietitian [facility] [phone] 05/03/25 documented in this encounter H&P Notes * Kelvin Myles MD - 05/07/2025 11:45 AM EDT HISTORY AND PHYSICAL INTERVAL NOTE: Irma Caceres 1945 [id number] H&P reviewed. The patient was examined and [...] disorder Depression Diabetes mellitus type 2, controlled ([facility]) GERD (gastroesophageal reflux disease) Hyperlipidemia Hypertension Ischemic bowel disease Kidney stone hx Low back pain Myocardial infarction ([facility]) Obesity Osteoarthritis Osteoporosis Palpitations Paroxysmal A-fib ([facility]) Pneumonia 08/2024 Visual impairment Past Surgical History: Procedure Laterality Date APPENDECTOMY 1955 BACK SURGERY x 2 BREAST BIOPSY Left 06/03/2001 BREAST BIOPSY Left 1998 BREAST BIOPSY Left 2006 CARDIAC CATHETERIZATION CHOLECYSTECTOMY 1974 COLONOSCOPY N/A 05/22/2023 Performed by Triston Sanford DO at [facility] CORONARY ANGIOPLASTY WITH STENT PLACEMENT 08/10/2024 x1 ESOPHAGOGASTRODUODENOSCOPY N/A 05/22/2023 Performed by Triston Sanford DO at [facility] HERNIA REPAIR HYSTERECTOMY 1981 INJECTION BLOCK EPIDURAL CAUDAL STEROID N/A 11/01/2023 Performed by Xu Campa MD at [facility] INJECTION BLOCK NERVE MEDIAL BRANCH: bilat L 4/5 5/ Bilateral 06/21/2023 Performed by Xu Campa MD at [facility] INJECTION BLOCK NERVE MEDIAL BRANCH: bilat L 4/5 5/ Bilateral 02/22/2023 Performed by Xu Camap MD at [facility] INJECTION BLOCK SACROILIAC JOINT Right 02/07/2024 Performed by Xu Campa MD at [facility] INJECTION BLOCK SACROILIAC JOINT Right 09/13/2023 Performed by Xu Campa MD at [facility] INJECTION BLOCK SACROILIAC JOINT Right 11/09/2022 Performed by Xu Campa MD at [facility] INJECTION BURSA LARGE JOINT: right hip Right 12/28/2022 Performed by Xu Campa MD at [facility] INJECTION BURSA LARGE JOINT: right hip Right 07/19/2023 Performed by Xu Campa MD at [facility] OOPHORECTOMY ROTATOR CUFF REPAIR x 3 TUBAL LIGATION 1975 Allergies Allergen Reactions Codeine affected my breathing , tylenol #3 specifically Sulfa (Sulfonamide Antibiotics) GI Disturbance Sulfamethoxazole-Trimethoprim Other reaction(s): Vomiting Trimethobenzamide Current Facility-Administered Medications: acetaminophen (TYLENOL) tablet 650 mg, 650 mg, oral, Q6H PRN, Luigi Reese HEATING AND VENTILATING DRAFTER-DOORMAKER amiodarone (PACERONE) tablet 200 mg, 200 mg, oral, BID, Luigi Floodzer, HEATING AND VENTILATING DRAFTER- DOORMAKER, 200 mg at 05/03/25 0832 dextrose (GLUTOSE) 40 % gel 15 g, 15 g, oral, PRN, Luigi Woodotzer, HEATING AND VENTILATING DRAFTER-DOORMAKER dextrose 5 % (D5W) infusion, 100 mL/hr, intravenous, Continuous PRN, Luigi Reese, HEATING AND VENTILATING DRAFTER-DOORMAKER dextrose 50 % in water (D50W) 50% solution 25 mL, 25 mL, intravenous, PRN, Luigi Reese HEATING AND VENTILATING DRAFTER-DOORMAKER ferrous sulfate tablet 325 mg, 325 mg, oral, Daily with breakfast, Luigi Reese APRN-DOORMAKER, 325 mgat 05/03/25 0832 glucagon HCL injection 1 mg, 1 mg, intramuscular, PRN, Luigi Reese HEATING AND VENTILATING DRAFTER-DOORMAKER insulin glargine (LANTUS, SEMGLEE) injection pen 20 Units, 20 Units, subcutaneous, Nightly, Luigi Reese HEATING AND VENTILATING DRAFTER-DOORMAKER, 20 Units at 05/03/25 0208 insulin lispro (HumaLOG) injection 2-10 Units, 2-10 Units, subcutaneous, With meals and nightly, Luigi Reese HEATING AND VENTILATING DRAFTER-DOORMAKER, 2 Units at 05/03/25 0209 magnesium sulfate IVPB 2000 mg/50 mL in iso-osmotic water (40 mg/mL premix), 2,000 mg, intravenous,PRN, Luigi Floodzer, HEATING AND VENTILATING DRAFTER-DOORMAKER magnesium sulfate IVPB 4000 mg/100 mL in iso-osmotic water (40 mg/mL premix), 4,000 mg, intravenous, PRN, Luigi Floodzer, HEATING AND VENTILATING DRAFTER-DOORMAKER metoprolol tartrate (LOPRESSOR) tablet 25 mg, 25 mg, oral, BID, Luigi Floodzer, HEATING AND VENTILATING DRAFTER-DOORMAKER, 25 mg at 05/03/25 0205 ondansetron (PF) (ZOFRAN) injection 4 mg, 4 mg, intravenous, Q6H PRN, Luigi Floodzer, HEATING AND VENTILATING DRAFTER-DOORMAKER pantoprazole (PROTONIX) 80 mg in sodium chloride 0.9 % 100 mL (0.8 mg/mL) infusion, 8 mg/hr, intravenous, Continuous, Ivania Trevino HEATING AND VENTILATING DRAFTER-DOORMAKER, Last Rate: 10 mL/hr at 05/03/25 0830, 8 mg/hr at 05/03/25 0830 pregabalin (LYRICA) capsule 75 mg, 75 mg, oral, TID AND pregabalin (LYRICA) capsule 150 mg, 150mg, oral, Nightly, Luigi Reese, HEATING AND VENTILATING DRAFTER-DOORMAKER, 150 mg at 05/03/25 0205 sodium chloride 0.9 % flush 3 mL, 3 mL, intravenous, PRN, Luigi Woodotzer, HEATING AND VENTILATING DRAFTER-DOORMAKER sodium chloride 0.9 % flush 3 mL, 3 mL, intravenous, Q12H HUNG, Luigi Woodotzer, HEATING AND VENTILATING DRAFTER-DOORMAKER, 3 mL at 05/03/25 0205 sodium chloride 0.9 % flush bag, 25 mL, intravenous, PRN, Luigi Woodotzer, HEATING AND VENTILATING DRAFTER-DOORMAKER sodium chloride 0.9 % infusion, 20 mL/hr, intravenous, Continuous PRN, Luigi Floodzer, HEATING AND VENTILATING DRAFTER-DOORMAKER sodium chloride 0.9 % infusion, 75 mL/hr, intravenous, Continuous, Luigi Woodotzer, HEATING AND VENTILATING DRAFTER-DOORMAKER, Last Rate: 75 mL/hr at 05/03/25 0530, Rate Verify at 05/03/25 0530 sodium chloride 0.9 % infusion, 20 mL/hr, intravenous, Continuous PRN, Bethanie Marquez, HEATING AND VENTILATING DRAFTER-DOORMAKER Social History Socioeconomic History Marital status: Spouse name: Not on file Number of children: Not on file Years of education: Not on file Highest education level: Not on file Occupational History Not on file Tobacco Use Smoking status: Former Current packs/day: 0.00 Average packs/day: 0.5 packs/day for 10.0 years (5.0 ttl pk-yrs) Types: Cigarettes Start date: 1974 Quit date: 1985 Years since quittin.6 Smokeless tobacco: Never Vaping [...] patient/family/caregiver Referring and communicating with other health director of health care marketing Kelvin Myles MD [facility] General Surgery [place] * Kelvin Myles MD - 05/05/2025 1:55 PM EDT HISTORY AND PHYSICAL INTERVAL NOTE: Irma Caceres 1945 [id number] H&P updated. The patient was examined and [...] disorder Depression Diabetes mellitus type 2, controlled ([facility]) GERD (gastroesophageal reflux disease) Hyperlipidemia Hypertension Ischemic bowel disease Kidney stone hx Low back pain Myocardial infarction ([facility]) Obesity Osteoarthritis Osteoporosis Palpitations Paroxysmal A-fib ([facility]) Pneumonia 08/2024 Visual impairment Past Surgical History: Procedure Laterality Date APPENDECTOMY 1955 BACK SURGERY x 2 BREAST BIOPSY Left 06/03/2001 BREAST BIOPSY Left 1998 BREAST BIOPSY Left 2006 CARDIAC CATHETERIZATION CHOLECYSTECTOMY 1974 COLONOSCOPY N/A 05/22/2023 Performed by Triston Sanford DO at [facility] CORONARY ANGIOPLASTY WITH STENT PLACEMENT 08/10/2024 x1 ESOPHAGOGASTRODUODENOSCOPY N/A 05/22/2023 Performed by Triston Sanford DO at [facility] HERNIA REPAIR HYSTERECTOMY 1981 INJECTION BLOCK EPIDURAL CAUDAL STEROID N/A 11/01/2023 Performed by Xu Campa MD at [facility] INJECTION BLOCK NERVE MEDIAL BRANCH: bilat L 4/5 5/ Bilateral 06/21/2023 Performed by Xu Campa MD at [facility] INJECTION BLOCK NERVE MEDIAL BRANCH: bilat L 4/5 5/ Bilateral 02/22/2023 Performed by Xu Campa MD at [facility] INJECTION BLOCK SACROILIAC JOINT Right 02/07/2024 Performed by Xu Campa MD at [facility] INJECTION BLOCK SACROILIAC JOINT Right 09/13/2023 Performed by Xu Campa MD at [facility] INJECTION BLOCK SACROILIAC JOINT Right 11/09/2022 Performed by Xu Campa MD at [facility] INJECTION BURSA LARGE JOINT: right hip Right 12/28/2022 Performed by Xu Campa MD at [facility] INJECTION BURSA LARGE JOINT: right hip Right 07/19/2023 Performed by Xu Campa MD at [facility] OOPHORECTOMY ROTATOR CUFF REPAIR x 3 TUBAL LIGATION 1975 Allergies Allergen Reactions Codeine affected my breathing , tylenol #3 specifically Sulfa (Sulfonamide Antibiotics) GI Disturbance Sulfamethoxazole-Trimethoprim Other reaction(s): Vomiting Trimethobenzamide Current Facility-Administered Medications: acetaminophen (TYLENOL) tablet 650 mg, 650 mg, oral, Q6H PRN, Luigi Reese HEATING AND VENTILATING DRAFTER-DOORMAKER amiodarone (PACERONE) tablet 200 mg, 200 mg, oral, BID, Luigi Reese HEATING AND VENTILATING DRAFTER- DOORMAKER, 200 mg at 05/03/25 0832 dextrose (GLUTOSE) 40 % gel 15 g, 15 g, oral, PRN, Luigi Reese, HEATING AND VENTILATING DRAFTER-DOORMAKER dextrose 5 % (D5W) infusion, 100 mL/hr, intravenous, Continuous PRN, Luigi Reese APRN-DWIGHT dextrose 50 % in water (D50W) 50% solution 25 mL, 25 mL, intravenous, PRN, Luigi Reese HEATING AND VENTILATING DRAFTER-DOORMAKER ferrous sulfate tablet 325 mg, 325 mg, oral, Daily with breakfast, DANIELLE Hawkins, 325 mgat 05/03/25 0832 glucagon HCL injection 1 mg, 1 mg, intramuscular, PRN, Luigi Reese HEATING AND VENTILATING DRAFTER-DOORMAKER insulin glargine (LANTUS, SEMGLEE) injection pen 20 Units, 20 Units, subcutaneous, Nightly, Luigi Reese HEATING AND VENTILATING DRAFTER-DOORMAKER, 20 Units at 05/03/25 0208 insulin lispro (HumaLOG) injection 2-10 Units, 2-10 Units, subcutaneous, With meals and nightly, Luigi Reese HEATING AND VENTILATING DRAFTER-DOORMAKER, 2 Units at 05/03/25 0209 magnesium sulfate IVPB 2000 mg/50 mL in iso-osmotic water (40 mg/mL premix), 2,000 mg, intravenous,PRN, Luigi Floodzer, HEATING AND VENTILATING DRAFTER-DOORMAKER magnesium sulfate IVPB 4000 mg/100 mL in iso-osmotic water (40 mg/mL premix), 4,000 mg, intravenous, PRN, Luigi Reese, HEATING AND VENTILATING DRAFTER-DOORMAKER metoprolol tartrate (LOPRESSOR) tablet 25 mg, 25 mg, oral, BID, Luigi Reese, HEATING AND VENTILATING DRAFTER-DOORMAKER, 25 mg at 05/03/25 0205 ondansetron (PF) (ZOFRAN) injection 4 mg, 4 mg, intravenous, Q6H PRN, Luigi D Krotzer, HEATING AND VENTILATING DRAFTER-DOORMAKER pantoprazole (PROTONIX) 80 mg in sodium chloride 0.9 % 100 mL (0.8 mg/mL) infusion, 8 mg/hr, intravenous, Continuous, Ivania Trevino HEATING AND VENTILATING DRAFTER-DOORMAKER, Last Rate: 10 mL/hr at 05/03/25 0830, 8 mg/hr at 05/03/25 0830 pregabalin (LYRICA) capsule 75 mg, 75 mg, oral, TID AND pregabalin (LYRICA) capsule 150 mg, 150mg, oral, Nightly, Luigi Floodzer, HEATING AND VENTILATING DRAFTER-DOORMAKER, 150 mg at 05/03/25 0205 sodium chloride 0.9 % flush 3 mL, 3 mL, intravenous, PRN, Luigi Brie Woodotzer, HEATING AND VENTILATING DRAFTER-DOORMAKER sodium chloride 0.9 % flush 3 mL, 3 mL, intravenous, Q12H HUNG, Luigi Baird Krotzer, HEATING AND VENTILATING DRAFTER-DOORMAKER, 3 mL at 05/03/25 0205 sodium chloride 0.9 % flush bag, 25 mL, intravenous, PRN, Luigi Brie Woodotzer, HEATING AND VENTILATING DRAFTER-DOORMAKER sodium chloride 0.9 % infusion, 20 mL/hr, intravenous, Continuous PRN, Luigi Brie Woodotzer, HEATING AND VENTILATING DRAFTER-DOORMAKER sodium chloride 0.9 % infusion, 75 mL/hr, intravenous, Continuous, Luigi Brie Krotzer, HEATING AND VENTILATING DRAFTER-DOORMAKER, Last Rate: 75 mL/hr at 05/03/25 0530, Rate Verify at 05/03/25 0530 sodium chloride 0.9 % infusion, 20 mL/hr, intravenous, Continuous PRN, Bethanie Marquez HEATING AND VENTILATING DRAFTER-DOORMAKER Social History Socioeconomic History Marital status: Spouse [...] patient/family/caregiver Referring and communicating with other health director of health care marketing Kelvin Myles MD [facility] Surgery [place] * Kelvin Myles MD - 05/05/2025 1:51 PM EDT HISTORY AND PHYSICAL INTERVAL NOTE: Irma Caceres 1945 [id number] H&P reviewed. The patient was examined and [...] disorder Depression Diabetes mellitus type 2, controlled ([facility]) GERD (gastroesophageal reflux disease) Hyperlipidemia Hypertension Ischemic bowel disease Kidney stone hx Low back pain Myocardial infarction ([facility]) Obesity Osteoarthritis Osteoporosis Palpitations Paroxysmal A-fib ([facility]) Pneumonia 08/2024 Visual impairment Past Surgical History: Procedure Laterality Date APPENDECTOMY 1955 BACK SURGERY x 2 BREAST BIOPSY Left 06/03/2001 BREAST BIOPSY Left 1998 BREAST BIOPSY Left 2006 CARDIAC CATHETERIZATION CHOLECYSTECTOMY 1974 COLONOSCOPY N/A 05/22/2023 Performed by Triston Sanford DO at [facility] CORONARY ANGIOPLASTY WITH STENT PLACEMENT 08/10/2024 x1 ESOPHAGOGASTRODUODENOSCOPY N/A 05/22/2023 Performed by Triston Sanford DO at [facility] HERNIA REPAIR HYSTERECTOMY 1981 INJECTION BLOCK EPIDURAL CAUDAL STEROID N/A 11/01/2023 Performed by Xu Campa MD at [facility] INJECTION BLOCK NERVE MEDIAL BRANCH: bilat L 4/5 5/ Bilateral 06/21/2023 Performed by Xu Campa MD at [facility] INJECTION BLOCK NERVE MEDIAL BRANCH: bilat L 4/5 / Bilateral 02/22/2023 Performed by Xu Campa MD at [facility] INJECTION BLOCK SACROILIAC JOINT Right 02/07/2024 Performed by Xu Campa MD at [facility] INJECTION BLOCK SACROILIAC JOINT Right 09/13/2023 Performed by Xu Campa MD at [facility] INJECTION BLOCK SACROILIAC JOINT Right 11/09/2022 Performed by Xu Campa MD [facility] INJECTION BURSA LARGE JOINT: right hip Right 12/28/2022 Performed by Xu Campa MD at [facility] INJECTION BURSA LARGE JOINT: right hip Right 07/19/2023 Performed by Xu Campa MD at [facility] OOPHORECTOMY ROTATOR CUFF REPAIR x 3 TUBAL LIGATION 1974 Allergies Allergen Reactions Codeine affected my breathing , tylenol #3 specifically Sulfa (Sulfonamide Antibiotics) GI Disturbance Sulfamethoxazole-Trimethoprim Other reaction(s): Vomiting Trimethobenzamide Current Facility-Administered Medications: acetaminophen (TYLENOL) tablet 650 mg, 650 mg, oral, Q6H PRN, Luigi Reese HEATING AND VENTILATING DRAFTER-DOORMAKER amiodarone (PACERONE) tablet 200 mg, 200 mg, oral, BID, Luigi Reese APRN- DOORMAKER, 200 mg at 05/03/25 0832 dextrose (GLUTOSE) 40 % gel 15 g, 15 g, oral, PRN, Luigi Reese HEATING AND VENTILATING DRAFTER-DOORMAKER dextrose 5 % (D5W) infusion, 100 mL/hr, intravenous, Continuous PRN, Luigi Reese HEATING AND VENTILATING DRAFTER-DOORMAKER dextrose 50 % in water (D50W) 50% solution 25 mL, 25 mL, intravenous, PRN, Luigi Reese HEATING AND VENTILATING DRAFTER-DOORMAKER ferrous sulfate tablet 325 mg, 325 mg, oral, Daily with breakfast, Luigi Reese APRN-DWIGHT, 325 mgat 05/03/25 0832 glucagon HCL injection 1 mg, 1 mg, intramuscular, PRN, Luigi Reese HEATING AND VENTILATING DRAFTER-DOORMAKER insulin glargine (LANTUS, SEMGLEE) injection pen 20 Units, 20 Units, subcutaneous, Nightly, Luigi Reese HEATING AND VENTILATING DRAFTER-DOORMAKER, 20 Units at 05/03/25 0208 insulin lispro (HumaLOG) injection 2-10 Units, 2-10 Units, subcutaneous, With meals and nightly, Luigi Reese HEATING AND VENTILATING DRAFTER-DOORMAKER, 2 Units at 05/03/25 0209 magnesium sulfate IVPB 2000 mg/50 mL in iso-osmotic water (40 mg/mL premix), 2,000 mg, intravenous,PRN, Luigi Reese HEATING AND VENTILATING DRAFTER-DOORMAKER magnesium sulfate IVPB 4000 mg/100 mL in iso-osmotic water (40 mg/mL premix), 4,000 mg, intravenous, PRN, Luigi Reese HEATING AND VENTILATING DRAFTER-DOORMAKER metoprolol tartrate (LOPRESSOR) tablet 25 mg, 25 mg, oral, BID, Luigi Reese HEATING AND VENTILATING DRAFTER-DOORMAKER, 25 mg at 05/03/25 0205 ondansetron (PF) (ZOFRAN) injection 4 mg, 4 mg, intravenous, Q6H PRN, Luigi Reese HEATING AND VENTILATING DRAFTER-DOORMAKER pantoprazole (PROTONIX) 80 mg in sodium chloride 0.9 % 100 mL (0.8 mg/mL) infusion, 8 mg/hr, intravenous, Continuous, Ivania Trevino APRN-DWIGHT, Last Rate: 10 mL/hr at 05/03/25 0830, 8 mg/hr at 05/03/25 0830 pregabalin (LYRICA) capsule 75 mg, 75 mg, oral, TID AND pregabalin (LYRICA) capsule 150 mg, 150mg, oral, Nightly, Luigi D Krotzer, HEATING AND VENTILATING DRAFTER-DOORMAKER, 150 mg at 05/03/25 0205 sodium chloride 0.9 % flush 3 mL, 3 mL, intravenous, PRN, Luigi D Krotzer, HEATING AND VENTILATING DRAFTER-DOORMAKER sodium chloride 0.9 % flush 3 mL, 3 mL, intravenous, Q12H HUNG, Luigi D Krotzer, HEATING AND VENTILATING DRAFTER-DOORMAKER, 3 mL at 05/03/25 0205 sodium chloride 0.9 % flush bag, 25 mL, intravenous, PRN, Luigi D Krotzer, HEATING AND VENTILATING DRAFTER-DOORMAKER sodium chloride 0.9 % infusion, 20 mL/hr, intravenous, Continuous PRN, Luigi D Krotzer, HEATING AND VENTILATING DRAFTER-DOORMAKER sodium chloride 0.9 % infusion, 75 mL/hr, intravenous, Continuous, Luigi D Krotzer, HEATING AND VENTILATING DRAFTER-DOORMAKER, Last Rate: 75 mL/hr at 05/03/25 0530, Rate Verify at 05/03/25 0530 sodium chloride 0.9 % infusion, 20 mL/hr, intravenous, Continuous PRN, Bethanie Marquez HEATING AND VENTILATING DRAFTER-DOORMAKER Social History Socioeconomic History Marital status: Spouse [...] patient/family/caregiver Referring and communicating with other health director of health care marketing Kelvin Myles MD [facility] General Surgery [place] * Laina Rome MD - 05/03/2025 9:00 AM EDT Images from the original note were not included. [facility] INTERNAL MEDICINE [facility] [address] [facility] [address] Hospital Medicine History & Physical Patient: Irma [...] exam may be helpful. EKG SR prolonged KS nonspecific intraventricular conduction delay Will admit for [...] mouth in the morning. 11/19/24 Yes Luis Granger MD cyanocobalamin (VITAMIN B12) 1,000 mcg [...] TWICE DAILY (MORNING AND BEFOREBEDTIME) 10/19/24 Yes Gil Power APRN-DWIGHT mupirocin (BACTROBAN) 2 % ointment Apply 1 [...] 2capsules (150 mg total) nightly. 04/06/25 Yes Janice Bhat APRN-DWIGHT semaglutide (OZEMPIC) 0.25 mg or 0.5 mg(2 [...] disorder, Depression, Diabetes mellitus type 2, controlled ([facility]), GERD (gastroesophageal reflux disease), Hyperlipidemia, Hypertension, Ischemic bowel disease, Kidney stone, Low back pain, Myocardial infarction ([facility]), Obesity, Osteoarthritis, Osteoporosis, Palpitations, Paroxysmal A-fib ([facility]), Pneumonia (08/2024), and Visual impairment. Past Surgical [...] History: Patient's family history includes Brain cancer (CMS-HCC) in [...] infusion, 8 mg/hr, Last Rate: 8 mg/hr (05/03/25829) sodium chloride 0.9 %, 20 mL/hr sodium chloride 0.9 %, 75 mL/hr, Last Rate: 75 mL/hr (05/03/25529) sodium chloride 0.9 %, 20 mL/hr As [...] Procedure Abnormality Status --------- ------ Light Blue Top[[id number]] Final result Please view results for these [...] Result Value Ref Range Blood component type [id number] Unit number [id number] Unit ABO O Unit RH POS Crossmatch Compatible Status of unit SELECTED Expiration Date [id number] BB Type Barcode [address] abdomen [...] achievable. Finalized by Robby Rosales on 04/08/2025 2:59 AM X-ray chest 1 [...] polyneuropathy, with long-term current use of insulin ([facility]) Vitamin B12 deficiency Hyperlipidemia Hyperkalemia Weakness Paroxysmal atrial fibrillation ([facility]) Iron deficiency anemia due to chronic blood loss Vaginal bleeding Left lower lobe pulmonary infiltrate Acute kidney injury superimposed on stage 3b chronic kidney disease ([facility]) ASSESSMENT & PLAN Acute upper GI bleed -hold blood thinners -last dose of eliquis was 05/02 -iron daily -Protonix drip -H&H every 8 hours -transfuse 1 unit of blood -general surgery consulted- due to eliquis- would not recommend scope until /Saturday - per surgery, can do if she is still admitted or as OP. 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 [...] PCI or further cardiac testing -continue on quality assurance monitor final -continue on amiodarone and Lopressor -holding thinners for now Recent subdural hematoma discharged on 04/12 from [facility] -this was after a trip & fall [...] 2-4 Days DANIELLE Baig 05/03/2025 11:54 AM [facility] Internal Medicine 7AM-7PM & 7PM-7AM: EpicChat or page through On-Call Finder. DANIELLE Baig 05/03/25 1209 I, Laina Rome MD, personally performed the face to face diagnostic evaluation on this patient. I have reviewed the CLAIRE's History, Exam, and MDM and agree with the assessment and plan as written. I have reviewed all laboratory findings and imaging reports/films. Dr Laina Rome MD, MRCP 05/03/2025 5:38 PM documented in this encounter Consult Notes * Marylin Dewey, CARMELLA-DOORMAKER - 05/11/2025 12:45 PM EDTAssociated Order(s): CONSULT WOUND CARE SERVICES Images from the original note were not included. Wound Care Service Line Consult Note Patient: Irma Caceres Date of Admission: 05/02/2025 8:05 PM Request for Consult: open area on coccyx PCP: DAGMAR HERNANDEZ, CARMELLA-DWIGHT Admitted Chief Complaint: Chief Complaint Patient presents [...] disorder Depression Diabetes mellitus type 2, controlled ([facility]) GERD (gastroesophageal reflux disease) Hyperlipidemia Hypertension Ischemic bowel disease Kidney stone hx Low back pain Myocardial infarction ([facility]) Obesity Osteoarthritis Osteoporosis Palpitations Paroxysmal A-fib ([facility]) Pneumonia 08/2024 Visual impairment Patient Active Problem List Diagnosis Palpitations Hypertension Normocytic anemia Arthritis BMI 40.0-44.9, adult ([facility]) Cervical spondylosis without myelopathy Chronic pain Type 2 diabetes mellitus with diabetic polyneuropathy, with long-term current use of insulin ([facility]) Former smoker Gout Polyneuropathy Vitamin B12 deficiency Vitamin D deficiency Over weight S/P lumbar discectomy Acute kidney injury superimposed on CKD Depression Hyperlipidemia Osteoporosis Disorder of sacrum Primary osteoarthritis of right hip Lumbosacral spondylosis without myelopathy Stage 3b chronic kidney disease (CKD) ([facility]) Hyperkalemia Gastroenteritis C. difficile colitis Ischemic bowel disease Personal history of colonic polyps Fundic gland polyposis of stomach Polyp of transverse colon Spinal stenosis of lumbar region with neurogenic claudication Restless leg syndrome Pneumonia of both lower lobes due to infectious organism Weakness ASCVD (arteriosclerotic cardiovascular disease) Paroxysmal atrial fibrillation (CMS-HCC) Bilateral lower extremity edema Anemia of chronic disease Iron deficiency anemia due to chronic blood loss ERRONEOUS ENCOUNTER--DISREGARD Fall, initial encounter Severe malnutrition Acute upper GI bleed Vaginal bleeding Left lower lobe pulmonary infiltrate Acute kidney injury superimposed on stage 3b chronic kidney disease (CMS-HCC) Transaminitis Pressure ulcer of left heel, stage 1 Dermatitis associated with moisture PSH: Past Surgical History: Procedure Laterality Date APPENDECTOMY 1955 BACK SURGERY x 2 BREAST BIOPSY Left 06/03/2001 BREAST BIOPSY Left 1998 BREAST BIOPSY Left 2005 CARDIAC CATHETERIZATION CHOLECYSTECTOMY 1974 COLONOSCOPY N/A 05/22/2023 Performed by Triston Sanford DO at [facility] COLONOSCOPY DIAGNOSTIC / SCREENING N/A 05/07/2025 Performed by Kelvin Myles MD at [facility] CORONARY ANGIOPLASTY WITH STENT PLACEMENT 08/10/2024 x1 ESOPHAGOGASTRODUODENOSCOPY N/A 05/22/2023 Performed by Triston Sanford DO at [facility] ESOPHAGOGASTRODUODENOSCOPY DIAGNOSTIC N/A 05/05/2025 Performed by Kelvin Myles MD at [facility] HERNIA REPAIR HYSTERECTOMY 1981 INJECTION BLOCK EPIDURAL CAUDAL STEROID N/A 11/01/2023 Performed by Xu Campa MD at [facility] INJECTION BLOCK NERVE MEDIAL BRANCH: bilat L 4/5 5/ Bilateral 06/21/2023 Performed by Xu Campa MD at [facility] INJECTION BLOCK NERVE MEDIAL BRANCH: bilat L 4/5 / Bilateral 02/22/2023 Performed by Xu Campa MD at [facility] INJECTION BLOCK SACROILIAC JOINT Right 02/07/2024 Performed by Xu Campa MD at [facility] INJECTION BLOCK SACROILIAC JOINT Right 09/13/2023 Performed by Xu Campa MD at [facility] INJECTION BLOCK SACROILIAC JOINT Right 11/09/2022 Performed by Xu Campa MD at [facility] INJECTION BURSA LARGE JOINT: right hip Right 12/28/2022 Performed by Xu Campa MD at [facility] INJECTION BURSA LARGE JOINT: right hip Right 07/19/2023 Performed by Xu Campa MD at [facility] OOPHORECTOMY ROTATOR CUFF REPAIR x 3 TUBAL [...] 04/10/25 Skin Tear Coccyx (Active) Wound Image 05/11/25 075 Site Assessment Red;Yellow;Moist 05/11/25 075 Sirena-wound Assessment Red;Blanchable erythema;Purple 05/11/25 075 Shape round 05/03/25 1028 Wound Length (cm) [...] Dressing Changed New 05/11/25752 Dressing Status Clean;Dry;Intact 05/11/25 075 Wound 04/11/25 Skin Tear Arm Proximal;Right (Active) [...] Procedure Component Value Units Date/Time Surgical Pathology [[id number]] Collected: 05/07/25 1205 Specimen: Tissue from Colon Updated: 05/07/25 2204 Surgical Pathology [[id number]] Collected: 05/05/25 1411 Specimen: Tissue from Stomach [...] to as low as reasonably achievable. Wor kstation:[id number] Finalized by Edward Jha MD on 05/02/2025 [...] polyneuropathy, with long-term current use of insulin ([facility]) Vitamin B12 deficiency Hyperlipidemia Hyperkalemia Weakness Paroxysmal atrial fibrillation ([facility]) Iron deficiency anemia due to chronic blood loss Vaginal bleeding Left lower lobe pulmonary infiltrate Acute kidney injury superimposed on stage 3b chronic kidney disease ([facility]) Pressure ulcer of left heel, stage 1 [...] with any questions or concerns. DANIELLE HANEY [facility] M-F 8a-3p Secure Chat preferred & fastest response time Needs outside these hours please contact the reciprocating department: general surgery, vascular surgery, ortho or podiatry. Thank you! DANIELLE Haney 05/11/25 1254 * Ron Adan MD - 05/10/2025 11:46 AM EDTAssociated Order(s): IP CONSULT TO CARDIOLOGY Images from the original note were not included. [facility] [address] [place] [address] CONSULTATION PATIENT NAME: Irma Caceres : 1945 [...] on Plavix and Eliquis until 05/02 and precision lens generator consulted for antiplatelet anticoagulationrecommendation. She also has transaminitis and Cardiology is consulted for amiodarone as well PAST MEDICAL HISTORY Past Medical History: Diagnosis Date Anemia Angina pectoris Arthritis C. difficile colitis 06/2023 still tx 08/08/23 Chronic kidney disease Chronic pain disorder Depression Diabetes mellitus type 2, controlled ([facility]) GERD (gastroesophageal reflux disease) Hyperlipidemia Hypertension Ischemic bowel disease Kidney stone hx Low back pain Myocardial infarction ([facility]) Obesity Osteoarthritis Osteoporosis Palpitations Paroxysmal A-fib ([facility]) Pneumonia 08/2024 Visual impairment SURGICAL HISTORY has [...] (0.4 mg total) by mouth nightly. 05/07/25 DANIELLE Baig torsemide (DEMADEX) 10 mg tablet Take 1 [...] 5:00 PM EDTAssociated Order(s): IP CONSULT TO OIL AND GAS WELL TREATMENT OPERATOR 80-YEAR-OLD WHITE FEMALE PRESENTS THROUGH ER YESTERDAY [...] A HISTORY OF TRAUMATIC CATHETER PLACEMENT AT RESIDENTIAL AFTERWHICH SHE STATES SHE HAD BLOOD RUNNING [...] disorder Depression Diabetes mellitus type 2, controlled ([facility]) GERD (gastroesophageal reflux disease) Hyperlipidemia Hypertension Ischemic bowel disease Kidney stone hx Low back pain Myocardial infarction ([facility]) Obesity Osteoarthritis Osteoporosis Palpitations Paroxysmal A-fib ([facility]) Pneumonia 08/2024 Visual impairment Past Surgical History: Surgical History[]Expand by Default Past Surgical History: Procedure Laterality Date APPENDECTOMY 1955 BACK SURGERY x 2 BREAST BIOPSY Left 06/03/2001 BREAST BIOPSY Left 1998 BREAST BIOPSY Left 2006 CARDIAC CATHETERIZATION CHOLECYSTECTOMY 1974 COLONOSCOPY N/A 05/22/2023 Performed by Triston Sanford DO at [facility] CORONARY ANGIOPLASTY WITH STENT PLACEMENT 08/10/2024 x1 ESOPHAGOGASTRODUODENOSCOPY N/A 05/22/2023 Performed by Triston Sanford DO at [facility] HERNIA REPAIR HYSTERECTOMY 1981 INJECTION BLOCK EPIDURAL CAUDAL STEROID N/A 11/01/2023 Performed by Xu Campa MD at [facility] INJECTION BLOCK NERVE MEDIAL BRANCH: bilat L 4/5 / Bilateral 06/21/2023 Performed by Xu Campa MD at [facility] INJECTION BLOCK NERVE MEDIAL BRANCH: bilat L 4/5 01/28 Bilateral 02/22/2023 Performed by Xu Campa MD at [facility] INJECTION BLOCK SACROILIAC JOINT Right 02/07/2024 Performed by Xu Campa MD at [facility] INJECTION BLOCK SACROILIAC JOINT Right 09/13/2023 Performed by Xu Campa MD at [facility] INJECTION BLOCK SACROILIAC JOINT Right 11/09/2022 Performed by Xu Campa MD at [facility] BURSA LARGE JOINT: right hip Right 12/28/2022 Performed by Xu Campa MD at [facility] INJECTION BURSA LARGE JOINT: right hip Right 07/19/2023 Performed by Xu Campa MD at [facility] OOPHORECTOMY ROTATOR CUFF REPAIR x 3 TUBAL [...] GENERALIZED WEAKNESS 3. CHRONIC ANEMIA 4. DOUBT CATHOLIC PRIEST ETIOLOGY 5. CHECK VAGINITIS PANEL 6. RO [...] disorder Depression Diabetes mellitus type 2, controlled ([facility]) GERD (gastroesophageal reflux disease) Hyperlipidemia Hypertension Ischemic bowel disease Kidney stone hx Low back pain Myocardial infarction ([facility]) Obesity Osteoarthritis Osteoporosis Palpitations Paroxysmal A-fib ([facility]) Pneumonia 08/2024 Visual impairment Past Surgical History: Procedure Laterality Date APPENDECTOMY 1955 BACK SURGERY x 2 BREAST BIOPSY Left 06/03/2001 BREAST BIOPSY Left 1998 BREAST BIOPSY Left 2005 CARDIAC CATHETERIZATION CHOLECYSTECTOMY 1974 COLONOSCOPY N/A 05/22/2023 Performed by Triston Sanford DO at [facility] CORONARY ANGIOPLASTY WITH STENT PLACEMENT 08/10/2024 x1 ESOPHAGOGASTRODUODENOSCOPY N/A 05/22/2023 Performed by Triston Sanford DO at [facility] HERNIA REPAIR HYSTERECTOMY 1981 INJECTION BLOCK EPIDURAL CAUDAL STEROID N/A 11/01/2023 Performed by Xu Campa MD at [facility] INJECTION BLOCK NERVE MEDIAL BRANCH: bilat L 4/ 01/28 Bilateral 06/21/2023 Performed by Xu Campa MD at [facility] INJECTION BLOCK NERVE MEDIAL BRANCH: bilat L 01/02 01/28 Bilateral 02/22/2023 Performed by Xu Campa MD at [facility] INJECTION BLOCK SACROILIAC JOINT Right 02/07/2024 Performed by Xu Campa MD at [facility] INJECTION BLOCK SACROILIAC JOINT Right 09/13/2023 Performed by Xu Campa MD at [facility] INJECTION BLOCK SACROILIAC JOINT Right 11/09/2022 Performed by Xu Campa MD at [facility] INJECTION BURSA LARGE JOINT: right hip Right 12/28/2022 Performed by Xu Campa MD at [facility] INJECTION BURSA LARGE JOINT: right hip Right 07/19/2023 Performed by Xu Campa MD at [facility] OOPHORECTOMY ROTATOR CUFF REPAIR x 3 TUBAL LIGATION 1974 Allergies Allergen Reactions Codeine affected my breathing , tylenol #3 specifically Sulfa (Sulfonamide Antibiotics) GI Disturbance Sulfamethoxazole-Trimethoprim Other reaction(s): Vomiting Trimethobenzamide Current Facility-Administered Medications: acetaminophen (TYLENOL) tablet 650 mg, 650 mg, oral, Q6H PRN, Luigi Reese HEATING AND VENTILATING DRAFTER-DWIGHT amiodarone (PACERONE) tablet 200 mg, 200 mg, oral, BID, Luigi Reese HEATING AND VENTILATING DRAFTER- DOORMAKER, 200 mg at 05/03/25 0832 dextrose (GLUTOSE) 40 % gel 15 g, 15 g, oral, PRN, Luigi Reese HEATING AND VENTILATING DRAFTER-DOORMAKER dextrose 5 % (D5W) infusion, 100 mL/hr, intravenous, Continuous PRN, Luigi Reese HEATING AND VENTILATING DRAFTER-DWIGHT dextrose 50 % in water (D50W) 50% solution 25 mL, 25 mL, intravenous, PRN, Luigi Reese HEATING AND VENTILATING DRAFTER-DOORMAKER ferrous sulfate tablet 325 mg, 325 mg, oral, Daily with breakfast, Luigi Reese APRN-DWIGHT, 325 mgat 05/03/25 0832 glucagon HCL injection 1 mg, 1 mg, intramuscular, PRN, Luigi Reese APRN-DWIGHT insulin glargine (LANTUS, SEMGLEE) injection pen 20 Units, 20 Units, subcutaneous, Nightly, Luigi Floodzer, HEATING AND VENTILATING DRAFTER-DOORMAKER, 20 Units at 05/03/25 0208 insulin lispro (HumaLOG) injection 2-10 Units, 2-10 Units, subcutaneous, With meals and nightly, Luigi Woodotzer, HEATING AND VENTILATING DRAFTER-DOORMAKER, 2 Units at 05/03/25 0209 magnesium sulfate IVPB 2000 mg/50 mL in iso-osmotic water (40 mg/mL premix), 2,000 mg, intravenous,PRN, Luigi Woodotzer, HEATING AND VENTILATING DRAFTER-DOORMAKER magnesium sulfate IVPB 4000 mg/100 mL in iso-osmotic water (40 mg/mL premix), 4,000 mg, intravenous, PRN, Luigi Woodotzer, HEATING AND VENTILATING DRAFTER-DOORMAKER metoprolol tartrate (LOPRESSOR) tablet 25 mg, 25 mg, oral, BID, Luigi Woodotzer, HEATING AND VENTILATING DRAFTER-DOORMAKER, 25 mg at 05/03/25 0205 ondansetron (PF) (ZOFRAN) injection 4 mg, 4 mg, intravenous, Q6H PRN, Luigi Floodzer, HEATING AND VENTILATING DRAFTER-DOORMAKER pantoprazole (PROTONIX) 80 mg in sodium chloride 0.9 % 100 mL (0.8 mg/mL) infusion, 8 mg/hr, intravenous, Continuous, Ivania Trevino APRN-DOORMAKER, Last Rate: 10 mL/hr at 05/03/25 0830, 8 mg/hr at 05/03/25 0830 pregabalin (LYRICA) capsule 75 mg, 75 mg, oral, TID AND pregabalin (LYRICA) capsule 150 mg, 150mg, oral, Nightly, Luigi Floodzer, HEATING AND VENTILATING DRAFTER-DOORMAKER, 150 mg at 05/03/25 0205 sodium chloride 0.9 % flush 3 mL, 3 mL, intravenous, PRN, Luigi Brie Krotzer, HEATING AND VENTILATING DRAFTER-DOORMAKER sodium chloride 0.9 % flush 3 mL, 3 mL, intravenous, Q12H HUNG, Luigi Brie Krotzer, HEATING AND VENTILATING DRAFTER-DOORMAKER, 3 mL at 05/03/25 0205 sodium chloride 0.9 % flush bag, 25 mL, intravenous, PRN, Luigi Woodotzer, HEATING AND VENTILATING DRAFTER-DOORMAKER sodium chloride 0.9 % infusion, 20 mL/hr, intravenous, Continuous PRN, Luigi Reese, HEATING AND VENTILATING DRAFTER-DOORMAKER sodium chloride 0.9 % infusion, 75 mL/hr, intravenous, Continuous, Luigi D Krotzer, HEATING AND VENTILATING DRAFTER-DOORMAKER, Last Rate: 75 mL/hr at 05/03/25 0530, Rate Verify at 05/03/25 0530 sodium chloride 0.9 % infusion, 20 mL/hr, intravenous, Continuous PRN, Bethanie Marquez HEATING AND VENTILATING DRAFTER-DOORMAKER Social History Socioeconomic History Marital status: Spouse [...] patient/family/caregiver Referring and communicating with other health director of health care marketing Kelvin Myles MD [facility] General Surgery [place] documented in this encounter ED Notes * Yvette Watson, - 05/02/2025 8:12 PM EDTAssociated Order(s): Critical Care Images from the original note were not included. [facility] - EMERGENCY Pt Name: Irma Caceres Birthdate: [...] Depression ??? Diabetes mellitus type 2, controlled ([facility]) ??? GERD (gastroesophageal reflux disease) ??? Hyperlipidemia ??? Hypertension ??? Ischemic bowel disease ??? Kidney stone hx ??? Low back pain ??? Myocardial infarction ([facility]) ??? Obesity ??? Osteoarthritis ??? Osteoporosis ??? Palpitations ??? Paroxysmal A-fib ([facility]) ??? Pneumonia 08/2024 ??? Visual impairment Past Surgical History: Past Surgical History: Procedure Laterality Date ??? APPENDECTOMY 1955 ??? BACK SURGERY x 2 ??? BREAST BIOPSY Left 06/03/2001 ??? BREAST BIOPSY Left 1997 ??? BREAST BIOPSY Left 2005 ??? CARDIAC CATHETERIZATION ??? CHOLECYSTECTOMY 1974 ??? COLONOSCOPY N/A 05/22/2023 Performed by Triston Sanford DO at [facility] ??? CORONARY ANGIOPLASTY WITH STENT PLACEMENT 08/10/2024 x1 ??? ESOPHAGOGASTRODUODENOSCOPY N/A 05/22/2023 Performed by Triston Sanford DO at [facility] ??? HERNIA REPAIR ??? HYSTERECTOMY 1981 ??? INJECTION BLOCK EPIDURAL CAUDAL STEROID N/A 11/01/2023 Performed by Xu Campa MD at [facility] ??? INJECTION BLOCK NERVE MEDIAL BRANCH: bilat L /5 01/28 Bilateral 06/21/2023 Performed by Xu Campa MD at [facility] ??? INJECTION BLOCK NERVE MEDIAL BRANCH: bilat L /5 01/28 Bilateral 02/22/2023 Performed by Xu Campa MD at [facility] ??? INJECTION BLOCK SACROILIAC JOINT Right 02/07/2024 Performed by Xu Campa MD at [facility] ??? INJECTION BLOCK SACROILIAC JOINT Right 09/13/2023 Performed by Xu Campa MD at [facility] ??? INJECTION BLOCK SACROILIAC JOINT Right 11/09/2022 Performed by Xu Campa MD at [facility] ??? INJECTION BURSA LARGE JOINT: right hip Right 12/28/2022 Performed by Xu Campa MD at [facility] ??? INJECTION BURSA LARGE JOINT: right hip Right 07/19/2023 Performed by Xu Campa MD at [facility] ??? OOPHORECTOMY ??? ROTATOR CUFF REPAIR x [...] Types: Cigarettes Start date: 1974 Quit date: 1985 Years since quittin.6 ??? Smokeless tobacco: Never [...] Pulse Ox;Monitor Semi-fowlers Left arm -- Vitals: 05/02/25205305/02/25212905/02/250 05/02/250 BP: (!) 138/103 (!) 86/63 104/52 117/55 Temp: TempSrc: Pulse: 64 61 69 61 Resp: 20 17 22 19 SpO2: 97% 93% 95% 96% MAP (mmHg): 114 71 65 Weight: Physical Exam Vitals and nursing note reviewed. Exam conducted with a quality control checker present. Constitutional: General: She is not in [...] management or test interpretation with external provider(s): Messaged Luigi Reese and will admit under Dr. Balderas. [...] patient has been on Levaquin from 04/13-04/21. [STEPHNAIE] 2055 Pt currently on Keflex for UTI [...] ED Course User Index [STEPHANIE] Ivania Trevino, HEATING AND VENTILATING DRAFTER-DOORMAKER Clinical Impressions as of 05/11/25 1043 ERNESTINE (acute kidney injury) Hyperkalemia Transaminitis Acute upper GI bleed Polyneuropathy Stage 3b chronic kidney disease (CKD) ([facility]) Paroxysmal atrial fibrillation ([facility]) ASCVD (arteriosclerotic cardiovascular disease) Type 2 diabetes mellitus with diabetic polyneuropathy, with long-term current use of insulin ([facility]) . ED Disposition ED Disposition Admit Date/Time Sun May 02, 2025 10:10 PM Comment At this time, the patient has objective evidence of an acute process that will likely require hospitalization for greater than 2 midnights. The patient will be admitted. Shared/Split Visit 20:49 EDT Stephanie Miranda (felix), scribed for and in the presence of: Dr. Watson who performed the aboveservice. IDr. Watson personally performed a [id number] diagnostic evaluation on this patient. I personally [...] dictations but occasionally words are mis-transcribed. Ivania Trevino, HEATING AND VENTILATING DRAFTER-DOORMAKER 05/02/252013 Yvette Watson DO 05/02/252035 Stephanie Quiroga 05/02/252054 Stephanie Quiroga 05/02/252055 Ivania Trevino, HEATING AND VENTILATING DRAFTER-DOORMAKER 05/02/25 215 Ivania Trevino APRN-DOORMAKER 05/02/25 222 Yvette Watson DO 05/02/25 224 documented in this encounter Miscellaneous Notes * Query Response - Wesly Morse MD - 05/13/2025 9:49 AM EDT Query [...] submitted in a single cassette. (1, ns, [id number], m7) MG Based on your medical judgement, can you please indicate in the progress notes whether or not you agree with this diagnosis(es). Your response can include none or not applicable. Thank you, Ira Donovan, [facility], EDGE GRINDER MACHINE, Inpatient Finished Metal Repairer [email or web address] The patient's Clinical Indicators include: We are not permitted to code a condition documented only in an interpreted medical report without provider confirmation of that condition. CDI RESPONSE TEXT: Gastric adenocarcinoma Query created by: Ira Donovan on 05/12/2025 11:02 AM Electronically signed by: eWsly Morse MD 05/13/2025 9:47 AM * Plan [...] Will continue to update and assess patient throughoutshift for needs. * Discharge Planning Note - Janina Saldaña - 05/11/2025 11:11 AM EDT DISCHARGE PLANNING NOTE CRF and updates sent to [facility] (P# ; F# ) * Discharge Planning Note - CARY Johnson - 05/11/2025 10:37 AM EDT Images from the original note were not included. Ongoing Assessment for Discharge Needs Reviewed discharge milestones and patient needs related to discharge plan. Current estimated discharge date of May 11, 2025 has been reviewed by treatment team. Sent message via [employer] to [facility] pt will have dopplers today & DC after resulted;tasked Transition Center to send updated medical note. Care Navigation will continue to follow patient progress to determine appropriate safe care transition needs. 11:00: [id number] completed. Tasked Transition Center to send CRF & [id number] to [facility]. Sticky note on chart with report/fax number & message to call SNF with transport time. Ongoing Assessment for Discharge Needs Flowsheet Row Most Recent Value Referral To Community Referrals / Resources Provided Financial Resources [referral made to [employer] [facility] [employer] [facility] to assist pt/ with Medicaid application] Services Requested Patient expects to be discharged to: [facility] Does the patient wish to have family/friend/caregiver involved in their discharge planning? Yes Does the patient plan to return home to a community setting? No, patient to discharge to facility-based provider. See Discharge Disposition Discharge Disposition SNF SNF Name [facility] SN[facility] SNF Accepted? Yes PreCertification Authorization Number [id number] PreCertification Expiration Date 05/12/25 PreCertification Expiration Time 1600 Patient choice offered Yes List Provided Yes DC Planning Complete Discharge Milestones Yes * Plan of Care - Yodit Fox RN - 05/10/2025 10:46 PM EDT Problem: Pain Goal: Patient goal is pain score less than 4, able to rest, and participant in treatment plan as appropriate Description: INTERVENTIONS: 1. Encourage patient or legal resources representative to report early pain and ask [...] per policy 9. Teach patient or legal resources representative interventions for comforting Outcome: Progressing Note: [...] at the bedside 7. Instruct patient/ patient resources representative about use of safety devices 8. Include patient/ patient resources representative in decisions related to safety Outcome: [...] hygiene technique. 7. Identify and instruct patient/patient resources representative in use of appropriate isolation precautionsfor identified infection/symptoms. 8. Provide and discuss with patient/patient resources representative on educational MDRO sheet. 9. Encourage and monitor nutritional status daily and consult sql data architect if indicated. 10. Implement neutropenic guidelines as needed. Outcome: Progressing Note: Evaluation of progress towards goal: Problem: Knowledge Deficit Goal: Patient/patient resources representative demonstrates understanding of disease process, treatment [...] goal: Multidisciplinary teams working together with patient [facility] discharge goals. * Discharge Planning Note - Rocio Rivera - 05/10/2025 2:49 PM EDT DISCHARGE PLANNING NOTE Clinical updates including sent to. [facility] [facility] (P# ; F# ) * Discharge Planning Note - CARY Johnson - 05/10/2025 10:29 AM EDT Ongoing Assessment for Discharge Needs Reviewed discharge milestones and patient needs related to discharge plan. Current estimated discharge date of May 07, 2025 has been reviewed by treatment team. Update to DWIGHT & RN to inform on Prior Auth approved for admission to : [facility] [place] (P# ; F# ) Approval # [id number] Valid for Dates: 05/08/2025-05/12/2025 SW needs to complete 98420 prior to DC. Met with pt & informed on insurance acceptance. Sticky note on chart regarding DC with report/fax numbers. Ongoing Assessment for Discharge Needs Flowsheet Row Most Recent Value Referral To Community Referrals / Resources Provided Financial Resources [referral made to [employer] to assist pt/ with Medicaid application] Services Requested Patient expects to be discharged to: [facility] Does the patient wish to have family/friend/caregiver involved in their discharge planning? Yes Does the patient plan to return home to a community setting? No, patient to discharge to facility-based provider. See Discharge Disposition Discharge Disposition SNF SNF Name [facility] SN[facility] SNF Accepted? Yes PreCertification Authorization Number [id number] PreCertification Expiration Date 05/12/25 PreCertification Expiration Time 7660 Patient choice offered Yes List Provided Yes [...] hygiene technique. 7. Identify and instruct patient/patient resources representative in use of appropriate isolation precautionsfor identified infection/symptoms. 8. Provide and discuss with patient/patient resources representative on educational MDRO sheet. 9. Encourage and monitor nutritional status daily and consult sql data architect if indicated. 10. Implement neutropenic guidelines as needed. Outcome: Progressing Note: Evaluation of progress towards goal: Pt afebrile at this time, continue to monitor for signs infection Problem: Knowledge Deficit Goal: Patient/patient resources representative demonstrates understanding of disease process, treatment plan,medications, and discharge instructions Description: INTERVENTIONS 1. Complete learning assessment and assess knowledge base 2. Provide teaching at level of understanding 3. Provide teaching via preferred learning method(s) Outcome: Progressing Note: Evaluation of progress towards goal: POC discussed with patient. Questions answered PRN. * PT/OT/DIRECTOR OF MARKET RESEARCH - Janice Hayes, PT - 05/10/2025 10:11 [...] nonskid sock, IV Weight Bearing Status: Full Telemetry/Bed Spring Maker: No Oxygen Used: Room Air Subjective Physical [...] Outcomes Date/Time User Outcome 05/10/25 1010 Janice Hayes, PT Not Progressing Goal Note filed on [...] Janice Hayes, PT Progressing 05/06/25 1037 Mone Mosqueda PT Progressing Goal Note filed on 05/09/25799 [...] polyneuropathy, with long-term current use of insulin ([facility]) Vitamin B12 deficiency Hyperlipidemia Hyperkalemia Weakness Paroxysmal atrial fibrillation ([facility]) Iron deficiency anemia due to chronic blood loss Vaginal bleeding Left lower lobe pulmonary infiltrate Acute kidney injury superimposed on stage 3b chronic kidney disease ([facility]) * PT/OT/DIRECTOR OF MARKET RESEARCH - EMILIE Rebolledo/Aron - 05/10/2025 10:04 AM EDT Occupational Therapy [...] little Scoring Daily Activity Raw Score: 13 [facility] G Code Modifier: CL Therapy Plan Need [...] belt, walker, IV Weight Bearing Status: Full Telemetry/Bed Spring Maker: No Oxygen Order : room air Other: [...] Disciplines: OT Outcomes Date/Time User Outcome 05/06/25 8233 ALMAS Chand/Aron Progressing Goal Note filed on 05/06/25 1029 by ALMAS Chand/Aron Evaluation of progress towards goal: fair Problem: [...] OT Outcomes Date/Time User Outcome 05/10/25 1004 JAIME Rebolledo Progressing 05/06/25 1455 ALMAS Chand/Aron Progressing Goal Note filed on 05/10/25 1004 by JAIME Rebolledo Evaluation of progress towards goal: refer to [...] polyneuropathy, with long-term current use of insulin ([facility]) Vitamin B12 deficiency Hyperlipidemia Hyperkalemia Weakness Paroxysmal atrial fibrillation ([facility]) Iron deficiency anemia due to chronic blood loss Vaginal bleeding Left lower lobe pulmonary infiltrate Acute kidney injury superimposed on stage 3b chronic kidney disease ([facility]) Cosigned by ALMAS Chand/Aron at 05/10/2025 10:33 AM EDT Associated attestation - Senait Villasenor OTR/L - 05/10/2025 10:33 AM EDT I have reviewed and agree with this note and education documentation for this visit. * Discharge Planning Note - Mai Reyna - 05/10/2025 7:24 AM EDT DISCHARGE PLANNING NOTE Prior Auth approved for admission to : [facility] (P# ; F# ) Approval # [id number] Valid for Dates: 05/08/2025-05/12/2025 * Plan of Care - Yodit Fox RN - 05/09/2025 7:09 PM EDT Problem: Pain Goal: Patient goal is pain score less than 4, able to rest, and participant in treatment plan as appropriate Description: INTERVENTIONS: 1. Encourage patient or legal resources representative to report early pain and ask [...] per policy 9. Teach patient or legal resources representative interventions for comforting Outcome: Progressing Note: [...] at the bedside 7. Instruct patient/ patient resources representative about use of safety devices 8. Include patient/ patient resources representative in decisions related to safety Outcome: [...] hygiene technique. 7. Identify and instruct patient/patient resources representative in use of appropriate isolation precautionsfor identified infection/symptoms. 8. Provide and discuss with patient/patient resources representative on educational MDRO sheet. 9. Encourage and monitor nutritional status daily and consult sql data architect if indicated. 10. Implement neutropenic guidelines as needed. Outcome: Progressing Note: Evaluation of progress towards goal: Problem: Knowledge Deficit Goal: Patient/patient resources representative demonstrates understanding of disease process, treatment [...] Description: INTERVENTIONS: 1. Encourage patient or legal resources representative to report early pain and ask [...] per policy 9. Teach patient or legal resources representative interventions for comforting Outcome: Progressing Note: [...] at the bedside 7. Instruct patient/ patient resources representative about use of safety devices 8. Include patient/ patient resources representative in decisions related to safety Outcome: [...] hygiene technique. 7. Identify and instruct patient/patient resources representative in use of appropriate isolation precautionsfor identified infection/symptoms. 8. Provide and discuss with patient/patient resources representative on educational MDRO sheet. 9. Encourage and monitor nutritional status daily and consult sql data architect if indicated. 10. Implement neutropenic guidelines as needed. Outcome: Progressing Note: Evaluation of progress towards goal: Pt assessed and monitored for signs and symptoms of infection, lab and diagnostic results monitored as needed, administer medications as needed. Problem: Knowledge Deficit Goal: Patient/patient resources representative demonstrates understanding of disease process, treatment plan,medications, and discharge instructions Description: INTERVENTIONS 1. Complete learning assessment and assess knowledge base 2. Provide teaching at level of understanding 3. Provide teaching via preferred learning method(s) Outcome: Progressing Note: Evaluation of progress towards goal: Learning assessment and knowledge base assessed, teaching provided at an understandable level as needed. * PT/OT/DIRECTOR OF MARKET RESEARCH - Janice Hayes, PT - 05/09/2025 8:02 [...] walker, IV, catheter Weight Bearing Status: Full Telemetry/Bed Spring Maker: No Oxygen Used: Room Air Pain Assessment [...] transfers and gait. Repetitions 10x ea B LE's Bed Mobility Rolling: Contact guard assist, Left [...] weakness. Disciplines: PT Outcomes Date/Time User Outcome 05/09/25799 Janice Hayes, PT Progressing 05/06/25 Janett Mosqueda PT Progressing Goal Note filed on 05/09/25799 [...] polyneuropathy, with long-term current use of insulin ([facility]) Vitamin B12 deficiency Hyperlipidemia Hyperkalemia Weakness Paroxysmal atrial fibrillation ([facility]) Iron deficiency anemia due to chronic blood loss Vaginal bleeding Left lower lobe pulmonary infiltrate Acute kidney injury superimposed on stage 3b chronic kidney disease ([facility]) * Plan of Care - Yodit Fox RN - 05/08/2025 8:14 PM EDT Problem: Pain Goal: Patient goal is pain score less than 4, able to rest, and participant in treatment plan as appropriate Description: INTERVENTIONS: 1. Encourage patient or legal resources representative to report early pain and ask [...] per policy 9. Teach patient or legal resources representative interventions for comforting Outcome: Progressing Note: [...] at the bedside 7. Instruct patient/ patient resources representative about use of safety devices 8. Include patient/ patient resources representative in decisions related to safety Outcome: [...] hygiene technique. 7. Identify and instruct patient/patient resources representative in use of appropriate isolation precautionsfor identified infection/symptoms. 8. Provide and discuss with patient/patient resources representative on educational MDRO sheet. 9. Encourage and monitor nutritional status daily and consult sql data architect if indicated. 10. Implement neutropenic guidelines as needed. Outcome: Progressing Note: Evaluation of progress towards goal: Problem: Knowledge Deficit Goal: Patient/patient resources representative demonstrates understanding of disease process, treatment [...] Description: INTERVENTIONS: 1. Encourage patient or legal resources representative to report early pain and ask [...] per policy 9. Teach patient or legal resources representative interventions for comforting Outcome: Progressing Note: [...] at the bedside 7. Instruct patient/ patient resources representative about use of safety devices 8. Include patient/ patient resources representative in decisions related to safety Outcome: [...] hygiene technique. 7. Identify and instruct patient/patient resources representative in use of appropriate isolation precautionsfor identified infection/symptoms. 8. Provide and discuss with patient/patient resources representative on educational MDRO sheet. 9. Encourage and monitor nutritional status daily and consult sql data architect if indicated. 10. Implement neutropenic guidelines as needed. Outcome: Progressing Note: Evaluation of progress towards goal: Pt assessed and monitored for signs and symptoms of infection, lab and diagnostic results monitored as needed, administer medications as needed. Problem: Knowledge Deficit Goal: Patient/patient resources representative demonstrates understanding of disease process, treatment [...] Description: INTERVENTIONS: 1. Encourage patient or legal resources representative to report early pain and ask [...] per policy 9. Teach patient or legal resources representative interventions for comforting Outcome: Progressing Note: [...] at the bedside 7. Instruct patient/ patient resources representative about use of safety devices 8. Include patient/ patient resources representative in decisions related to safety Outcome: [...] hygiene technique. 7. Identify and instruct patient/patient resources representative in use of appropriate isolation precautionsfor identified infection/symptoms. 8. Provide and discuss with patient/patient resources representative on educational MDRO sheet. 9. Encourage and monitor nutritional status daily and consult sql data architect if indicated. 10. Implement neutropenic guidelines as needed. Outcome: Progressing Note: Evaluation of progress towards goal: Problem: Knowledge Deficit Goal: Patient/patient resources representative demonstrates understanding of disease process, treatment [...] in re nal function. Medication continued from MANAGER ANIMATION, dosed per tolerance and renal function. Continue current therapy. * PT/OT/DIRECTOR OF MARKET RESEARCH - Lupe Wakefield PT - 05/07/2025 10:20 AM EDT Physical Therapy PT Type of Visit: Medical deferral Reason For Medical Deferral: Off unit Off Unit: Testing PT will continue to follow this patient and re-attempt treatment session as able. * Discharge Planning Note - Mai Reyna - 05/07/2025 10:05 AM EDT DISCHARGE PLANNING NOTE Prior auth submitted to: [employer] Via: Kiara On behalf of : [facility] (P# ; F# ) Ref # [id number] * Discharge Planning Note - Yudelka Morales [...] recommends: Score = 13; SNF Discharge Plan: [facility] care at [facility] (accepted). Insurance authorization will need submitted once d/c date is narrowed closer. Plan of Care: [facility] - Yudelka Morales RN 05/07/25 8:38 AM Per DTR discharge is anticipated today or tomorrow. Tasked Pre-Certification Team to begin insurance authorization for patient to go to [facility]. Discharge Plan: [facility] care at [facility] (accepted) and pending insurance authorization. Plan of Care: [facility] - Yudelka Morales RN 05/07/25 9:52 AM Preadmission Screening & Resident Review (PASSR) PASSR completed via the [employer] ([employer] Electronic Notification System) ODM 0112 (short form) completed and submitted? yes Is a Level II Evaluation required? no SNF notified on [facility] of PASSR completion. yes - Yudelka Morales RN 05/07/25 3:31 PM * Plan of Care - Idania Rider RN - 05/07/2025 8:00 AM EDT Problem: Pain Goal: Patient goal is pain score less than 4, able to rest, and participant in treatment plan as appropriate Description: INTERVENTIONS: 1. Encourage patient or legal resources representative to report early pain and ask [...] per policy 9. Teach patient or legal resources representative interventions for comforting Outcome: Progressing Note: [...] at the bedside 7. Instruct patient/ patient resources representative about use of safety devices 8. Include patient/ patient resources representative in decisions related to safety Outcome: [...] Description: INTERVENTIONS: 1. Encourage patient or legal resources representative to report early pain and ask [...] per policy 9. Teach patient or legal resources representative interventions for comforting Outcome: Progressing Note: [...] at the bedside 7. Instruct patient/ patient resources representative about use of safety devices 8. Include patient/ patient resources representative in decisions related to safety Outcome: Progressing Note: Evaluation of progress towards goal: Remains free from injury. Safety precautions maintained. Problem: Knowledge Deficit Goal: Patient/patient resources representative demonstrates understanding of disease process, treatment plan,medications, and discharge instructions Description: INTERVENTIONS 1. Complete learning assessment and assess knowledge base 2. Provide teaching at level of understanding 3. Provide teaching via preferred learning method(s) Outcome: Progressing Note: Evaluation of progress towards goal: Plan of care reviewed, no questions/concerns voiced. Allinterventions explained prior to initiating. * PT/OT/DIRECTOR OF MARKET RESEARCH - ALMAS Chand/Aron - 05/06/2025 2:56 PM EDT Occupational Therapy Treatment Discharge Recommendations for Safe Patient Transition Discharge Recommendations: Post acute - moderate Post Acute Moderate Rehab Needs: Recommend moderate intensity rehab, Tolerate 1- 2 hrs of therapy 3-5 days/wk, Subacute or chronic functional impairment Current Impairments Informing Therapy Recommendation: Ambulation status/safety, Cognition, Fall risk, ADL status, Endurance level Speech Therapy Teacher Support for-: Mobility Deficits, ADL Deficits, Cognitive [...] nonskid socks, gait belt, walker, IV, catheter Telemetry/Bed Spring Maker: No Oxygen Order : room air Other: [...] on role and goals of OT after bid writer introduced self. pt completes ADL while seated edge of bed Home Management - IADL Other: spouse and daugther in law at bedside, pt provides verbal consent for them to be present during treatment session. pt ed on role and goals of OT after bid writer introduced self. pt completes ADL while seated [...] Disciplines: OT Outcomes Date/Time User Outcome 05/06/251454 ALMAS Chand/Aron Progressing Goal Note filed on 05/06/251454 by Senait Villasenor OTR/Aron Evaluation of progress towards goal: fair Problem: [...] Note filed on 05/06/251454 by Senait Villasenor OTR/Aron Evaluation of progress towards goal: refer to [...] polyneuropathy, with long-term current use of insulin ([facility]) Vitamin B12 deficiency Hyperlipidemia Hyperkalemia Weakness Paroxysmal atrial fibrillation ([facility]) Iron deficiency anemia due to chronic blood loss Vaginal bleeding Left lower lobe pulmonary infiltrate Acute kidney injury superimposed on stage 3b chronic kidney disease ([facility]) * PT/OT/DIRECTOR OF MARKET RESEARCH - Mone Mosqueda, PT - 05/06/2025 10:39 [...] Outcomes Date/Time User Outcome 05/06/25 1037 Mone Mosqueda, PT Progressing Goal Note filed on 05/06/25 1037 by Mone Mosqueda, PT Evaluation of progress towards goal: mod A of 1 today for supine to sit and mod/max A for sit to supine. Problem: Gait Dates: Start: 05/04/25 Disciplines: PT Goal: Patient will perform gait with Contact Guard Dates: Start: 05/04/25 Expected End: 05/13/25 Description: With_RW___,__20__feet Goal Description: to negotiate functional distances within hospital room. Disciplines: PT Outcomes Date/Time User Outcome 05/06/25 1037 Mone Mosqueda, PT Progressing Goal Note filed on 05/06/25 1037 by Mone Mosqueda, PT Evaluation of progress towards goal: pt ambulated 5 ft with rolling walker and stood 1-2 minutes but veryfatigued. Problem: Transfers Dates: Start: 05/04/25 Disciplines: PT Goal: Patient will perform transfers with Contact Guard Dates: Start: 05/04/25 Expected End: 05/13/25 Description: Goal Description: and use of RW do to improving LE strength and balance. Disciplines: PT Outcomes Date/Time User Outcome 05/06/25 1037 Mone Mosqueda, PT Progressing Goal Note filed on 05/06/25 1037 by Mone Mosqueda, PT Evaluation of progress towards goal: min A today Physical Therapy Care Plan (Resolved) There are no resolved problems. Principal Problem: Acute upper GI bleed Active Problems: Hypertension Type 2 diabetes mellitus with diabetic polyneuropathy, with long-term current use of insulin ([facility]) Vitamin B12 deficiency Hyperlipidemia Hyperkalemia Weakness Paroxysmal atrial fibrillation ([facility]) Iron deficiency anemia due to chronic blood loss Vaginal bleeding Left lower lobe pulmonary infiltrate Acute kidney injury superimposed on stage 3b chronic kidney disease ([facility]) * Discharge Planning Note - CARY Johnson [...] submit for insurance approval for SNF [facility] needs [id number] completedprior to DC. Update sent to [facility] via [employer] that pt will have colonoscopy of Saturday. Care Navigation will continue to follow patient progress to determine appropriate safe care transition needs. Ongoing Assessment for Discharge Needs Flowsheet Row Most Recent Value Referral To Community Referrals / Resources Provided Financial Resources [referral made to [employer] to assist pt/ with Medicaid application] Services Requested Patient expects to be discharged to: [facility] Does the patient wish to have family/friend/caregiver involved in their discharge planning? Yes Does the patient plan to return home to a community setting? No, patient to discharge to facility-based provider. See Discharge Disposition [facility] Yes Patient choice offered Yes List Provided Yes DC Planning Complete Discharge Milestones Yes * Plan of Care - Elisa Smith RN - 05/06/2025 8:10 AM EDT Problem: Pain Goal: Patient goal is pain score less than 4, able to rest, and participant in treatment plan as appropriate Description: INTERVENTIONS: 1. Encourage patient or legal resources representative to report early pain and ask [...] per policy 9. Teach patient or legal resources representative interventions for comforting Outcome: Progressing Note: [...] at the bedside 7. Instruct patient/ patient resources representative about use of safety devices 8. Include patient/ patient resources representative in decisions related to safety Outcome: Progressing Note: Evaluation of progress towards goal: remains free from fall/ injury * Plan of Care - Neelam Luna RN - 05/06/2025 2:36 AM EDT Problem: Pain Goal: Patient goal is pain score less than 4, able to rest, and participant in treatment plan as appropriate Description: INTERVENTIONS: 1. Encourage patient or legal resources representative to report early pain and ask [...] per policy 9. Teach patient or legal resources representative interventions for comforting Note: Evaluation of [...] at the bedside 7. Instruct patient/ patient resources representative about use of safety devices 8. Include patient/ patient resources representative in decisions related to safety Outcome: [...] hygiene technique. 7. Identify and instruct patient/patient resources representative in use of appropriate isolation precautionsfor identified infection/symptoms. 8. Provide and discuss with patient/patient resources representative on educational MDRO sheet. 9. Encourage and monitor nutritional status daily and consult sql data architect if indicated. 10. Implement neutropenic guidelines as needed. Outcome: Progressing Note: Evaluation of progress towards goal: On going monitoring * Discharge Planning Note - Vipul Steele - 05/05/2025 3:51 PM EDT DISCHARGE PLANNING NOTE Clinical updates sent to [facility] (P# ; F# ) * Discharge Planning Note - CARY Johnson - 05/05/2025 3:34 PM EDT Ongoing Assessment for Discharge Needs Reviewed discharge milestones and patient needs related to discharge plan. Current estimated discharge date of May 07, 2025 has been reviewed by treatment team. RN informs family asking for SW; bid writer to pt room, requesting assistance with Medicaid application he has. Informed bid writer would make referral to Pt. Financial Services to assist. Change Of Address Clerk spoke with Pt Financial [employer], they will [...] Disposition Discharge Disposition SNF SNF Name [facility] SNF SNF Accepted? Yes Patient choice offered Yes List Provided Yes DC Planning Complete Discharge Milestones Yes DISCHARGE PLAN: [facility] INSURANCE APPROVAL & [id number] * PT/OT/DIRECTOR OF MARKET RESEARCH - Lupe [place] [facility] - 05/05/2025 1:50 PM EDT Physical [...] Description: INTERVENTIONS: 1. Encourage patient or legal resources representative to report early pain and ask [...] per policy 9. Teach patient or legal resources representative interventions for comforting Outcome: Progressing Note: [...] at the bedside 7. Instruct patient/ patient resources representative about use of safety devices 8. Include patient/ patient resources representative in decisions related to safety Outcome: Progressing Note: Evaluation of progress towards goal: remains free from fall/ injury * PT/OT/DIRECTOR OF MARKET RESEARCH - Senait Villasenor OTR/Aron - 05/04/2025 1:16 PM EDT Occupational Therapy [...] Cognition, Fall risk, ADL status, Endurance level Speech Therapy Teacher Support for-: Mobility Deficits, ADL Deficits 6 [...] upper GI bleed. Patient was recently at [facility] with fall resulting in a L hematoma and a R SDH. Pt is noted to have edema in BLE. A high complex eval was completed. Past Surgical History: Procedure Laterality Date APPENDECTOMY 1955 BACK SURGERY x 2 BREAST BIOPSY Left 06/03/2001 BREAST BIOPSY Left 1998 BREAST BIOPSY Left 2006 CARDIAC CATHETERIZATION CHOLECYSTECTOMY 1974 COLONOSCOPY N/A 05/22/2023 Performed by Triston Sanford DO at [facility] CORONARY ANGIOPLASTY WITH STENT PLACEMENT 08/10/2024 x1 ESOPHAGOGASTRODUODENOSCOPY N/A 05/22/2023 Performed by Triston Sanford DO at [facility] HERNIA REPAIR HYSTERECTOMY 1981 INJECTION BLOCK EPIDURAL CAUDAL STEROID N/A 11/01/2023 Performed by Xu Campa MD at [facility] INJECTION BLOCK NERVE MEDIAL BRANCH: bilat L 4/5 5/ Bilateral 06/21/2023 Performed by Xu Campa MD at [facility] INJECTION BLOCK NERVE MEDIAL BRANCH: bilat L 4/5 5/ Bilateral 02/22/2023 Performed by Xu Campa MD at [facility] INJECTION BLOCK SACROILIAC JOINT Right 02/07/2024 Performed by Xu Campa MD at [facility] INJECTION BLOCK SACROILIAC JOINT Right 09/13/2023 Performed by Xu Campa MD at [facility] INJECTION BLOCK SACROILIAC JOINT Right 11/09/2022 Performed by Xu Campa MD at [facility] INJECTION BURSA LARGE JOINT: right hip Right 12/28/2022 Performed by Xu Campa MD at [facility] INJECTION BURSA LARGE JOINT: right hip Right 07/19/2023 Performed by Xu Campa MD at [facility] OOPHORECTOMY ROTATOR CUFF REPAIR x 3 TUBAL LIGATION 1974 Past Medical History: Diagnosis Date Anemia Angina pectoris Arthritis C. difficile colitis 06/2023 still tx 08/08/23 Chronic kidney disease Chronic pain disorder Depression Diabetes mellitus type 2, controlled ([facility]) GERD (gastroesophageal reflux disease) Hyperlipidemia Hypertension Ischemic bowel disease Kidney stone hx Low back pain Myocardial infarction ([facility]) Obesity Osteoarthritis Osteoporosis Palpitations Paroxysmal A-fib ([facility]) Pneumonia 08/2024 Visual impairment OT Treatment/Interventions: Functional [...] walker, gait belt, bed and chair alarm Telemetry/Bed Spring Maker: Yes Oxygen Used: room air Other: mulitple bruises on face Subjective Occupational Therapy Comments: I have 3 skilled days left on m insurance Pain Assessment Pain Assessment: No/denies pain Home Living Other : prior to admit at [place] at the start of March pt was [...] out of doors . pt was at [facility] pior to admit to [facility] Prior Function Other: Prior Function Lives With: Spouse, Other (Comment) (adult [facility] [place] [employer] [facility] that is home and available to help; works and has flexible schedule) Receives Help From: Family (another grown local [facility] in [place]) Level of Mobility: (see below) Homemaking Assistance: (see below) Other: Patient stated that she needs help to get in/our of shower/tub, help with ADLs at times (especially lower body). reports patient is minimally active at home and walks household distances with prolonged rest breaks. She will help with making family meals. working with therapy while at [facility], needed assist for bathing and dressing ADL [...] Footwear Deficit: R sock, L sock Other: bid writer introduced self role and goals of therapy, agreeable to session. ADL assessment is based on clinical judgement and observation of pt's ability to complete ROM, strength, endurance, sit and stand balance and functional mobility status and safety awareness Home Management - IADL Other: bid writer introduced self role and goals of therapy, [...] polyneuropathy, with long-term current use of insulin ([facility]) Vitamin B12 deficiency Hyperlipidemia Hyperkalemia Weakness Paroxysmal atrial fibrillation ([facility]) Iron deficiency anemia due to chronic blood loss Vaginal bleeding Left lower lobe pulmonary infiltrate Acute kidney injury superimposed on stage 3b chronic kidney disease ([facility]) * Discharge Planning Note - CARY Johnson [...] does not endorse any at this time. Change Of Address Clerk will task to send PT/OT evaluations to [facility] when available. Ongoing Assessment for Discharge Needs [...] Disposition [facility] Yes Patient choice offered Yes List Provided Yes DC Planning Complete Discharge Milestones Yes * PT/OT/DIRECTOR OF MARKET RESEARCH - Lupe [place], PT - 05/04/2025 10:45 [...] Cognition, Fall risk, ADL status, Endurance level Speech Therapy Teacher Support for-: Mobility Deficits, ADL Deficits 6 [...] walker, gait belt, bed and chair alarm Telemetry/Bed Spring Maker: Yes Oxygen Used: room air Other: mulitple bruises on face Past Medical History: Diagnosis Date Anemia Angina pectoris Arthritis C. difficile colitis 06/2023 still tx 08/08/23 Chronic kidney disease Chronic pain disorder Depression Diabetes mellitus type 2, controlled ([facility]) GERD (gastroesophageal reflux disease) Hyperlipidemia Hypertension Ischemic bowel disease Kidney stone hx Low back pain Myocardial infarction ([facility]) Obesity Osteoarthritis Osteoporosis Palpitations Paroxysmal A-fib ([facility]) Pneumonia 08/2024 Visual impairment Past Surgical History: Procedure Laterality Date APPENDECTOMY 1956 BACK SURGERY x 2 BREAST BIOPSY Left 06/03/2001 BREAST BIOPSY Left 1998 BREAST BIOPSY Left 2005 CARDIAC CATHETERIZATION CHOLECYSTECTOMY 1974 COLONOSCOPY N/A 05/22/2023 Performed by Triston Sanford DO at [facility] CORONARY ANGIOPLASTY WITH STENT PLACEMENT 08/10/2024 x1 ESOPHAGOGASTRODUODENOSCOPY N/A 05/22/2023 Performed by Triston Sanford DO at [facility] HERNIA REPAIR HYSTERECTOMY 1980 INJECTION BLOCK EPIDURAL CAUDAL STEROID N/A 11/01/2023 Performed by Xu Campa MD at [facility] INJECTION BLOCK NERVE MEDIAL BRANCH: bilat L 4/5 5/ Bilateral 06/21/2023 Performed by Xu Campa MD at [facility] INJECTION BLOCK NERVE MEDIAL BRANCH: bilat L 4/5 5/1 Bilateral 02/22/2023 Performed by Xu Campa MD at [facility] INJECTION BLOCK SACROILIAC JOINT Right 02/07/2024 Performed by Xu Campa MD at [facility] INJECTION BLOCK SACROILIAC JOINT Right 09/13/2023 Performed by Xu Campa MD at [facility] INJECTION BLOCK SACROILIAC JOINT Right 11/09/2022 Performed by Xu Campa MD at [facility] INJECTION BURSA LARGE JOINT: right hip Right 12/28/2022 Performed by Xu Campa MD at [facility] INJECTION BURSA LARGE JOINT: right hip Right 07/19/2023 Performed by Xu Campa MD at [facility] OOPHORECTOMY ROTATOR CUFF REPAIR x 3 TUBAL LIGATION 1975 Pain Assessment Pain Assessment: No/denies pain Home Living Other : prior to admit at [place] at the start of March pt was [...] out of doors . pt was at [facility] pior to admit to [facility] Prior Function Other: Prior Function Lives With: Spouse, Other (Comment) (adult [employer] [place] [employer] that is home and available to help; works and has flexible schedule) Receives Help From: Family (another grown local [facility] in [place]) Level of Mobility: (see below) Homemaking Assistance: (see below) Other: Patient stated that she needs help to get in/our of shower/tub, help with ADLs at times (especially lower body). reports patient is minimally active at home and walks household distances with prolonged rest breaks. She will help with making family meals. working with therapy while at [facility], needed assist for bathing and dressing ADL [...] polyneuropathy, with long-term current use of insulin ([facility]) Vitamin B12 deficiency Hyperlipidemia Hyperkalemia Weakness Paroxysmal atrial fibrillation ([facility]) Iron deficiency anemia due to chronic blood loss Vaginal bleeding Left lower lobe pulmonary infiltrate Acute kidney injury superimposed on stage 3b chronic kidney disease ([facility]) * Plan of Care - Caridad Mccormick RN - 05/04/2025 8:35 AM EDT Problem: Pain Goal: Patient goal is pain score less than 4, able to rest, and participant in treatment plan as appropriate Description: INTERVENTIONS: 1. Encourage patient or legal resources representative to report early pain and ask [...] per policy 9. Teach patient or legal resources representative interventions for comforting Outcome: Progressing Note: [...] at the bedside 7. Instruct patient/ patient resources representative about use of safety devices 8. Include patient/ patient resources representative in decisions related to safety Outcome: [...] hygiene technique. 7. Identify and instruct patient/patient resources representative in use of appropriate isolation precautionsfor identified infection/symptoms. 8. Provide and discuss with patient/patient resources representative on educational MDRO sheet. 9. Encourage and monitor nutritional status daily and consult sql data architect if indicated. 10. Implement neutropenic guidelines as needed. Outcome: Progressing Note: Evaluation of progress towards goal: Pt assessed and monitored for signs and symptoms of infection, lab and diagnostic results monitored as needed, administer medications as needed. Problem: Knowledge Deficit Goal: Patient/patient resources representative demonstrates understanding of disease process, treatment [...] Description: INTERVENTIONS: 1. Encourage patient or legal resources representative to report early pain and ask [...] per policy 9. Teach patient or legal resources representative interventions for comforting Outcome: Progressing Note: [...] hygiene technique. 7. Identify and instruct patient/patient resources representative in use of appropriate isolation precautionsfor identified infection/symptoms. 8. Provide and discuss with patient/patient resources representative on educational MDRO sheet. 9. Encourage and monitor nutritional status daily and consult sql data architect if indicated. 10. Implement neutropenic guidelines as needed. Outcome: Progressing Note: Evaluation of progress towards goal: Patient VS WNL, remains afebrile for shift. Continue to monitor. Problem: Moderate - High Risk Fall Score Description: Vasquez Fall Score of =/> 25 or indicated by [facility] Assessment Goal: Patient should be free from fall Description: Interventions: 1. [place] to environment 2. Hourly rounds addressing the [...] non-skid footwear 11. Teach patient and patient resources representative to maintain environment for safety and [...] (cane, walker) within reach 19. Request patient resources representative bring adaptive equipment/mobility aids from home or obtain and provide as needed 20. Consult pharmacy regarding effects of med's affecting mobility, cognition, and alternatives 21. Obtain physician order for PT if risk factors associated with mobility are present 22. Obtain physician order for OT as appropriate 23. Utilize diversional activities 24. Educate patient and patient resources representative how to maintain a safe environment during visitationtimes (notify nurse prior to leaving bedside) 25. Consider appropriateness of medical or non-medical housekeeper 26. Set up voiding schedule as appropriate [...] 2025 has been reviewed by treatment team. [facility] has no beds, [facility] can accept, [facility] can accept. Met with pt & , informed on above; pt requests [facility]. Message sent to [facility] to disregard referral. Will need to submit for insurance approval when DC know; needs [phone] completed for DC to [facility]. Sticky note on chart. Ongoing Assessment for [...] Discharge Disposition SNF SNF Name [facility] SN[facility] SNF Accepted? Yes Patient choice offered Yes List Provided Yes DC Planning Complete Discharge Milestones Yes DISCHARGE PLAN: [facility] upon insurance approval & completed [id number] * Discharge Planning Note - Rocio Rivera - 05/03/2025 2:02 PM EDT DISCHARGE PLANNING NOTE Referral sent to. [facility]/ [place], [place] (P# ; F# ) [facility] [place] (P# ; F# ) [facility] (P#: ; F#: ) * [...] is improved with rest. Current wound pain 2/10. Vital Signs: BP 106/42 Pulse 61 Temp [...] Wound Image 05/03/25 1100 Site Assessment Red 05/03/251099 Sirena-wound Assessment Purple;Blanchable erythema 05/03/251099 Shape round 05/03/25 1028 Wound Length (cm) 1.3 cm 05/03/251099 Wound Width (cm) 0.8 cm 05/03/25 1100 Wound Surface Area (cm^2) 0.82 cm^2 05/03/25 1100 Wound Depth (cm) 0.1 cm 05/03/251099 Wound Volume (cm^3) 0.054 cm^3 05/03/251099 Closure Open to air 05/03/25 1028 Drainage Description Serosanguineous;Hopkins;Yellow 05/03/251099 Drainage Amount Scant 05/03/25 1100 Dressing Type Triad hydro;Foam 05/03/251099 Dressing Changed New 05/03/25 1100 Dressing Status Clean;Dry;Intact 05/03/25 1100 Wound 04/11/25 Skin Tear Arm Proximal;Right (Active) Discussed plan of care with wound care services DOORMAKER Wound Plan Dressing: Coccyx and right lateral [...] [facility] Preferred contact via Ext. [phone], [employer] or [facility] [place] COTTON ACREAGE MEASURER: Marylin Dewey APRN-DOORMAKER, CWS, COCN * PT/OT/DIRECTOR OF MARKET RESEARCH - Senait Villasenor OTR/L - 05/03/2025 11:04 AM EDT Occupational Therapy [...] of Steps 3 Home Care Services Yes [[id number] was supposed to begin today] Type of [...] Handoff Complete Caregiver/Family Member Caregiver/Family Member pt dajoel Banks, listed as contact, was in room during assessment along with pt sister Caregiver/Family Member Involved with Current Plan of Care Yes Caregiver/Family Member in Agreement with Current Plan of Care Yes Caregiver/Support System Limitations Patient/Caregiver Goals Patient/Caregiver Goals [facility] Skilled Nuring Care Skilled Care (Short [...] Yes Patient Goals: Patient/Caregiver Goals Patient/Caregiver Goals: [facility] Skilled Nuring Care: Skilled Care (Short Term) Goals SNF (pt-stated) Evaluation of progress towards goal: will need PT/OT evaluations to assist with determining needed DC LOC Chart reviewed. Introduced self & role of SW, jacoby pt agreeable to conversation with her sister & 2 granddaughters present; assessment/goals as above. Pt DC from [facility] [place] on Saturday & was send directly to [facility] ED who discharged pt to home. Pt went home & then to [facility] ED. Pt is requesting to go to SNF at [facility]. Pt informs [address] was supposed to start home services today. [...] LTC, pt states understanding. Provide pt with [facility] SNF Compare list, pt first choice is [facility] however pt would like to discuss with who would be coming later. 13:00: Change Of Address Clerk returned to room, pt , multiple grandchildren & sisters present. Change Of Address Clerk inquired on SNF choices, reviewing [facility] SNF compare list. Visitors left room to give pt & privacy. Pt said she knows her granddaughters don't feel she can be at home with & other granddaughter & HHC if needed but she feels she would be able to if needed. Pt & give choices of: 1. [facility] 2. [facility] 3. [facility]. Opportunity provided to ask questions, pt & do not endorse any at this time. Informed pt & that bid writer would send referrals & await response, will need insurance approval to DC to SNF. Patient's preferred pharmacy is [facility]. PCP verified as [facility] in [place] & wanted to speak with bid writer in absence of pt, informed family that bid writer would be happy to speak with them in pt room but could not discuss in [place] or without pt permission. Tasked Transition Center to send referrals to: 1. [facility]. [facility]. [facility]; await acceptance. Plan to prevent readmission is for pt to DC to SNF, follow DC instructions including medication compliance and to reach out to health care team as needed. Care Navigation will continue to follow patient progress to determine appropriate safe care transition needs. DISCHARGE PLAN: SNF if able to get insurance to approval, pt was cut on Saturday. * PT/OT/DIRECTOR OF MARKET RESEARCH - Lupe [place] PT - 05/03/2025 8:38 [...] Description: INTERVENTIONS: 1. Encourage patient or legal resources representative to report early pain and ask [...] per policy 9. Teach patient or legal resources representative interventions for comforting Outcome: Progressing Note: [...] at the bedside 7. Instruct patient/ patient resources representative about use of safety devices 8. Include patient/ patient resources representative in decisions related to safety Outcome: [...] hygiene technique. 7. Identify and instruct patient/patient resources representative in use of appropriate isolation precautionsfor identified infection/symptoms. 8. Provide and discuss with patient/patient resources representative on educational MDRO sheet. 9. Encourage and monitor nutritional status daily and consult sql data architect if indicated. 10. Implement neutropenic guidelines as needed. Outcome: Progressing Note: Evaluation of progress towards goal: Pt assessed and monitored for signs and symptoms of infection, lab and diagnostic results monitored as needed, administer medications as needed. Problem: Knowledge Deficit Goal: Patient/patient resources representative demonstrates understanding of disease process, treatment [...] Description: INTERVENTIONS: 1. Encourage patient or legal resources representative to report early pain and ask [...] per policy 9. Teach patient or legal resources representative interventions for comforting Outcome: Progressing Note: [...] at the bedside 7. Instruct patient/ patient resources representative about use of safety devices 8. Include patient/ patient resources representative in decisions related to safety Outcome: [...] hygiene technique. 7. Identify and instruct patient/patient resources representative in use of appropriate isolation precautionsfor identified infection/symptoms. 8. Provide and discuss with patient/patient resources representative on educational MDRO sheet. 9. Encourage and monitor nutritional status daily and consult sql data architect if indicated. 10. Implement neutropenic guidelines as needed. Outcome: Progressing Note: Evaluation of progress towards goal: Patient VS WNL, remains afebrile for shift. Continue to monitor. documented in this encounter Plan of Treatment Upcoming Encounters Date Type Department Care Team (Late st Contact Info) Description 05/21/2025 9:30 AM EDT Hospital Encounter [facility] - Pet Imaging [address] [place] [phone] 05/25/2025 10:15 AM EDT Office Visit [facility] General Surgery [address] [place] [phone] Kelvin Myles MD [address] [place] [phone] 06/03/2025 11:15 AM EDT Office Visit [facility] - Medical Oncology [address] [place] [phone] Rowdy Riley MD [address] [place] [address] [address] [place] [phone] 07/29/2025 3:30 PM EDT Office Visit [facility] Department of [facility] [address] [facility] [address] [place] [phone] Janice Bhat, CARMELLA-DOORMAKER [address] [place] [address] 07/30/2025 2:30 PM EDT Office Visit [facility] - Medical Oncology [address] [place] [phone] Rowdy Riley MD [address] [place] [phone] Scheduled Orders Name Type Priority Associated Diagnoses Order Schedule CBC Lab Routine Acute upper GI bleed Expected: 05/14/2025 (Approximate), Expires: 05/07/2026 Comprehensive metabolic panel Lab Routine Acute upper GI bleed Expected: 05/14/2025 (Approximate), Expires: 05/07/2026 Fingerstick glucose checks Point of Care Testing Routine Type 2 diabetes mellitus with diabetic polyneuropathy, with long-term current use of insulin ([facility]) Ordered: 05/11/2025 Scheduled Referrals Name Type Priority Associated Diagnoses Orde r Schedule Ambulatory referral to General Surgery Outpatient Referral Routine Acute upper GI bleed 1 Occurrences starting 05/07/2025 until 05/07/2026 Ambulatory referral to Urology Outpatient Referral Routine Urinary retention 1 Occurrences starting 05/07/2025 until 05/07/2026 [facility] [place] [place] Outpatient Referral Routine Paroxysmal atrial fibrillation ([facility]) ASCVD (arteriosclerotic cardiovascular disease) 1 Occurrences starting 05/11/2025 until 05/10/2026 Referral to Physical Therapy Outpatient Referral Routine Polyneuropathy Ordered: 05/11/2025 Referral to Occupational Therapy Outpatient Referral Routine Polyneuropathy Ordered: 05/11/2025 Referral to Nursing Care Outpatient Referral Routine Urinary retention Type 2 diabetes mellitus with diabetic polyneuropathy, with long-term current use of insulin ([facility]) Ordered: 05/11/2025 documented as of this encounter [...] AM EDT CBC WITH AUTO DIFFERENTIAL Routine 05/11/2025 4:37 AM EDT HEPARIN ANTI XA, UNFRACTIONATED Routine 05/11/2025 4:37 AM EDT MAGNESIUM Routine 05/11/2025 4:37 AM EDT COMPREHENSIVE METABOLIC PANEL Routine 05/11/2025 4:37 AM EDT BEDSIDE GLUCOSE Routine 05/10/2025 9:22 PM EDT BEDSIDE GLUCOSE Routine 05/10/2025 5:57 PM EDT MAGNESIUM Routine 05/10/2025 4:00 PM EDT BEDSIDE GLUCOSE Routine 05/10/2025 11:40 AM EDT CBC WITH AUTO DIFFERENTIAL Routine 05/10/2025 5:32 AM EDT HEPARIN ANTI XA, UNFRACTIONATED Routine 05/10/2025 5:32 AM EDT B-TYPE NATRIURETIC PEPTIDE Routine 05/10/2025 5:32 AM EDT MAGNESIUM Routine 05/10/2025 5:32 AM EDT COMPREHENSIVE METABOLIC PANEL Routine 05/10/2025 5:32 AM EDT BEDSIDE GLUCOSE Routine 05/09/2025 8:51 PM EDT BEDSIDE GLUCOSE Routine 05/09/2025 4:34 PM EDT BEDSIDE GLUCOSE Routine 05/09/2025 11:07 AM EDT MAGNESIUM Routine 05/09/2025 11:03 AM EDT BEDSIDE GLUCOSE Routine 05/09/2025 7:47 AM EDT CBC WITH AUTO DIFFERENTIAL Routine 05/09/2025 2:31 AM EDT HEPARIN ANTI XA, UNFRACTIONATED Routine 05/09/2025 2:31 AM EDT MAGNESIUM Routine 05/09/2025 2:31 AM EDT COMPREHENSIVE METABOLIC PANEL Routine 05/09/2025 2:31 AM EDT BEDSIDE GLUCOSE Routine 05/08/2025 9:06 PM EDT HEPARIN ANTI XA, UNFRACTIONATED Routine 05/08/2025 7:40 PM EDT BEDSIDE GLUCOSE Routine 05/08/2025 4:18 PM EDT PROTIME & INR Routine 05/08/2025 12:35 PM EDT BEDSIDE GLUCOSE Routine 05/08/2025 12:00 PM EDT EXTRA TUBES LAVENDER TOP Routine 05/08/2025 11:08 AM EDT EXTRA TUBES PST TOP Routine 05/08/2025 1 1:08 AM EDT EXTRA TUBES Routine 05/08/2025 11:08 AM EDT APTT Routine 05/08/2025 11:08 AM EDT BEDSIDE GLUCOSE Routine 05/08/2025 7:51 AM EDT CBC WITH AUTO DIFFERENTIAL Routine 05/08/2025 5:17 AM EDT MAGNESIUM Routine 05/08/2025 5:17 AM EDT COMPREHENSIVE METABOLIC PANEL Routine 05/08/2025 5:17 AM EDT BEDSIDE GLUCOSE Routine 05/07/2025 8:48 PM EDT BEDSIDE GLUCOSE Routine 05/07/2025 4:56 PM EDT BEDSIDE GLUCOSE Routine 05/07/2025 1:12 PM EDT PROVATION COLONOSCOPY Routine 05/07/2025 12:10 PM EDT SURGICAL PATHOLOGY Routine 05/07/2025 12 :05 PM EDT COLONOSCOPY DIAGNOSTIC / SCREENING 05/07/2025 11:49 AM EDT Anemia COLONOSCOPY 05/07/2025 11:45 AM EDT EXTRA TUBES BLUE TOP Routine 05/07/2025 5:32 AM EDT EXTRA TUBES Routine 05/07/2025 5:32 AM EDT CBC WITH AUTO DIFFERENTIAL Routine 05/07/2025 5:32 AM EDT MAGNESIUM Routine 05/07/2025 5:32 AM EDT COMPREHENSIVE METABOLIC PANEL Routine 05/07/2025 5:32 AM EDT BEDSIDE GLUCOSE Routine 05/06/2025 10:15 PM EDT BEDSIDE GLUCOSE Routine 05/06/2025 5:01 PM EDT BEDSIDE GLUCOSE Routine 05/06/2025 12:49 PM EDT CBC WITH AUTO DIFFERENTIAL Routine 05/06/2025 5:33 AM EDT MAGNESIUM Routine 05/06/2025 5:33 AM EDT COMPREHENSIVE METABOLIC PANEL Routine 05/06/2025 5:33 AM EDT EXTRA TUBES BLUE TOP Routine 05/06/2025 5:32 AM EDT EXTRA TUBES Routine 05/06/2025 5:32 AM EDT HEMOGLOBIN AND HEMATOCRIT, BLOOD Routine 05/05/2025 9:50 PM EDT BEDSIDE GLUCOSE Routine 05/05/2025 8:52 PM EDT POTASSIUM Routine 05/05/2025 5:07 PM EDT BEDSIDE GLUCOSE Routine 05/05/2025 4:53 PM EDT SURGICAL PATHOLOGY Routine 05/05/2025 2: 11 PM EDT PROVATION EGD Routine 05/05/2025 2:01 PM EDT CHASE-CAIN VIRUS DNA, DETECT/QUANT, P Routine 05/05/2025 1:03 PM EDT CMV DNA DETECT/QUANT, P Routine 05/05/20 25 1:03 PM EDT HIV 1&2 AB/AG SCREEN (P24 AG) Routine 05/05/2025 1:03 PM EDT HEMOGLOBIN AND HEMATOCRIT, BLOOD Routine 05/05/2025 1:03 PM EDT EGD 05/05/2025 12:18 PM EDT BEDSIDE GLUCOSE Routine 05/05/2025 11:56 AM EDT US ABDOMEN LMTD Routine 05/05/2025 11:51 AM EDT PROCALCITONIN Add-On 05/05/2025 6:01 AM EDT CBC WITH AUTO DIFFERENTIAL Routine 05/05/2025 6:01 AM EDT MAGNESIUM Routine 05/05/2025 6:01 AM EDT COMPREHENSIVE METABOLIC PANEL Routine 05/05/2025 6:01 AM EDT EXTRA TUBES BLUE TOP [...] AM EDT CBC WITH AUTO DIFFERENTIAL Routine 05/04/2025 5:37 AM EDT MAGNESIUM Routine 05/04/2025 5:37 AM EDT COMPREHENSIVE METABOLIC PANEL Routine 05/04/2025 5:37 AM EDT HEMOGLOBIN AND HEMATOCRIT, BLOOD Routine 05/03/2025 9:30 PM EDT BEDSIDE GLUCOSE Routine 05/03/2025 8:23 PM EDT VAGINITIS PANEL PCR Routine 05/03/2025 6 :27 PM EDT BEDSIDE GLUCOSE Routine 05/03/2025 4:02 PM EDT HEMOGLOBIN AND HEMATOCRIT, BLOOD Routine 05/03/2025 3:34 PM EDT SODIUM, URINE, RANDOM Routine 05/03/2025 12:40 PM EDT OSMOLALITY, URINE Routine 05/03/2025 12: 40 PM EDT URINALYSIS Routine 05/03/2025 12:40 PM EDT US PELVIC COMPLETE Routine 05/03/2025 12 :30 PM EDT TRANSFUSE RED BLOOD CELLS Routine 05/03/2025 12:29 PM EDT BEDSIDE GLUCOSE Routine 05/03/2025 11:59 AM EDT CROSSMATCH RBC Routine 05/03/2025 9:19 AM EDT TYPE AND SCREEN Routine 05/03/2025 8:44 AM EDT PROCALCITONIN Add-On 05/03/2025 4:14 AM EDT CBC WITH AUTO DIFFERENTIAL Routine 05/03/2025 4:14 AM EDT HEPATITIS PANEL, ACUTE Add-On 4:14 AM EDT C-REACTIVE PROTEIN Add-On 05/03/2025 4: 14 AM EDT OSMOLALITY Add-On 05/03/2025 4:14 AM EDT MAGNESIUM Routine 05/03/2025 4:14 AM EDT COMPREHENSIVE METABOLIC PANEL Routine 05/03/2025 4:14 AM EDT BEDSIDE GLUCOSE Routine 05/03/2025 1:[address] ABDOMEN AND PELVIS WO CONT STAT 05/02/2025 10:48 PM EDT EXTRA TUBES BLUE TOP Routine 05/02/2025 9:06 PM EDT EXTRA TUBES Routine 05/02/2025 9:06 PM EDT CBC WITH AUTO DIFFERENTIAL STAT 05/02/2025 9:06 PM EDT MAGNESIUM STAT 05/02/2025 9:06 PM EDT COMPREHENSIVE METABOLIC PANEL STAT 05/02/2025 9:06 PM EDT LACTATE W/ REFLEX STAT 05/02/2025 9:[address] BRAIN WO CONT STAT 05/02/2025 8:47 PM EDT XR CHEST 1 VW STAT 05/02/2025 8:47 PM EDT NURSE FECAL OB Routine 05/02/2025 8:28 PM EDT ECG 12-LEAD STAT 05/02/2025 8:20 PM EDT PM ED CRITICAL CARE Routine 05/02/2025 8 :12 PM EDT documented in this encounter Results * (ABNORMAL) Bedside Glucose *Place/Obtain serum glucose if >500 per glucometer. (05/11/2025 11:49AM EDT) Bedside Glucose (POC) 208(H) 65 - 99 mg/dL 05/11/2025 11:54 AM EDT [facility] arterial/capilla ry 05/11/2025 11:49 AM EDT 05/11/2025 11:54 AM EDT us Wesly Morse MD POINT OF CARE TEST ORDERAB LES Final Result [facility] [address] [place] [address], [place] * Vas venous duplex lwr bilateral [...] inthe great saphenous vein. us Bethanie Marquez HEATING AND VENTILATING DRAFTER-DOORMAKER CV VASCULAR ORDERABLES Fi nal Result * Bedside Glucose *Place/Obtain serum glucose if >500 per glucometer. (05/11/2025 8:44 AM EDT) Bedside Glucose (POC) 98 65 - 99 mg/dL 05/11/2025 8:48 AM EDT [facility] arterial/capilla ry 05/11/2025 8:44 AM EDT 05/11/2025 8:48 AM EDT Wesly Morse MD POINT OF CARE TEST ORDERAB LES Final Result [facility] [address] [place] [address], [place] * (ABNORMAL) CBC auto differential (05/11/2025 4:37 AM EDT) WBC 3.7(L) 4 - 11 x10E9/L 05/11/2025 5:00 AM EDT [facility] RBC Count 2.72(L) 3.8 - 5.2 X10E12/L 05/11/2025 5:00 AM EDT [facility] Hemoglobin 7.9(L) 11.7 - 15.5 g/dL 05/11/2025 5:00 AM EDT [facility] Hematocrit 23.6(L) 35 - 47 % 05/11/2025 5:00 AM EDT [facility] MCV 87 80 - 100 fL 05/11/2025 5:00 AM EDT [facility] MCH 29.2 27 - 34 pg 05/11/2025 5:00 AM EDT [facility] MCHC 33.6 32 - 36 g/dL 05/11/2025 5:00 AM EDT [facility] RDW 19.6(H) 11.5 - 15 % 05/11/2025 5:00 AM EDT [facility] Platelet Count 209 150 - 450 X10E9/L 05/11/2025 5:00 AM EDT [facility] MPV 9.8 7 - 12 fL 05/11/2025 5:00 AM EDT [facility] Neutrophils % 54.9 % 05/11/2025 5:00 AM EDT [facility] Lymphocytes % 31.1 % 05/11/2025 5:00 AM EDT [facility] Monocytes % 10.7 % 05/11/2025 5:00 AM EDT [facility] Eosinophils % 2.2 % 05/11/2025 5:00 AM EDT [facility] Basophils % 1.1 % 05/11/2025 5:00 AM EDT [facility] Neutrophils Absolute (A) 2.0 1.5 - 6.6 10*3/uL 05/11/2025 5:00 AM EDT [facility] Lymphocytes Absolute 1.1 1.0 - 3.5 10*3/uL 05/11/2025 5:00 AM EDT [facility] Monocytes Absolute 0.4 0.0 - 0.9 10*3/uL 05/11/2025 5:00 AM EDT [facility] Eosinophils Absolute 0.1 0.0 - 0.4 10*3/uL 05/11/2025 5:00 AM EDT [facility] Basophils Absolute 0.0 0.0 - 0.2 10*3/uL 05/11/2025 5:00 AM EDT [facility] Differential Type AUTOMATED DIFFERENTIAL 05/11/2025 5:00 AM EDT [facility] Blood Venous blood / Unknown Venipuncture / Unknown 05/11/2025 4:37 AM EDT 05/11/2025 4:45 AM EDT us Luigi D Krotzer HEATING AND VENTILATING DRAFTER-DOORMAKER LAB BLOOD ORDERABLES Fin al Result Performing Organization Address City/[facility]/ZIP Co de Phone Number [address] [place] [address], [place] * Magnesium (05/11/2025 4:37 AM EDT) MAGNESIUM 2.0 1.8 - 2.6 mg/dL 05/11/2025 5:06 AM EDT [facility] Blood Venous blood / Unknown Venipuncture / Unknown 05/11/2025 4:37 AM EDT 05/11/2025 4:45 AM EDT Luigi Reese HEATING AND VENTILATING DRAFTER-DOORMAKER LAB BLOOD ORDERABLES Fin al Result Performing Organization Address [facility] Co de Phone Number [address] [place] [address], [place] * (ABNORMAL) Comprehensive metabolic panel (05/11/2025 4:37 AM EDT) SODIUM 133(L) 134 - 146 mmol/L 05/11/2025 5:06 AM EDT [facility] POTASSIUM 4.5 3.5 - 5.0 mmol/L 05/11/2025 5:06 AM EDT [facility] CHLORIDE 101 98 - 109 mmol/L 05/11/2025 5:06 AM EDT [facility] CARBON DIOXIDE 25 22 - 32 mmol/L 05/11/2025 5:06 AM EDT [facility] ANION GAP 7 5 - 15 mmol/L 05/11/2025 5:06 AM EDT [facility] BLOOD UREA NITROGEN 34(H) 5 - 27 mg/dL 05/11/2025 5:06 AM EDT [facility] CREATININE 2.02(H) 0.40 - 1.00 mg/dL 05/11/2025 5:06 AM EDT [facility] Comment:METHOD TRACEABLE TO IDMS STANDARD GLUCOSE 110(H) 65 - 99 mg/dL 05/11/2025 5:06 AM EDT [facility] CALCIUM 8.6 8.5 - 10.5 mg/dL 05/11/2025 5:06 AM EDT [facility] TOTAL PROTEIN 4.9(L) 6.0 - 8.0 g/dL 05/11/2025 5:06 AM EDT [facility] ALBUMIN 2.7(L) 3.2 - 5.3 g/dL 05/11/2025 5:06 AM EDT [facility] ALKALINE PHOSPHATASE 120 39 - 130 U/L 05/11/2025 5:06 AM EDT [facility] AST 60(H) <=41 U/L 05/11/2025 5:06 AM EDT [facility] ALT 62(H) <=31 U/L 05/11/2025 5:06 AM EDT [facility] BILIRUBIN,TOTAL 0.8 0.3 - 1.2 mg/dL 05/11/2025 5:06 AM EDT [facility] EGFR Non-Race Dependent 25(L) >=60 ml/min/1.7 3sq.m 05/11/2025 5:06 AM EDT [facility] Comment: eGFR not reported due to non-numeric value for Creatinine. Reported eGFR is based on the CKD-EPI 2020 equation that does not use a race coefficient. Blood Venous blood / Unknown Venipuncture / Unknown 05/11/2025 4:37 AM EDT 05/11/2025 4:45 AM EDT us Luigi Reese HEATING [employer] VENTILATING DRAFTER-DOORMAKER LAB BLOOD ORDERABLES Fin al Result [facility] [address] [place] [address], * Anti XA unfractionated heparin (05/11/2025 4:37 AM EDT) ANTI XA UFH 0.39 0.30 - 0.70 IU/mL 05/11/2025 5:00 AM EDT [facility] Comment: Optimal time for testing is 6 hrs post dosage This test is specific for monitoring patients on UFH, and is not recommended for use with other Anti-Xa medications. Blood Venous blood / Unknown Venipuncture / Unknown 05/11/2025 4:37 AM EDT 05/11/2025 4:45 AM EDT us Wesly Morse MD LAB BLOOD ORDERABLES Final Result Performing Organization Address City/[facility] Co de Phone Number [address] [place] [address], [place] * (ABNORMAL) Bedside Glucose *Place/Obtain serum glucose if >500 per glucometer. (05/10/2025 9:22 PM EDT) Bedside Glucose (POC) 135(H) 65 - 99 mg/dL 05/10/2025 9:29 PM EDT [facility] arterial/capilla ry 05/10/2025 9:22 PM EDT 05/10/2025 9:29 PM EDT us Wesly Morse MD POINT OF CARE TEST ORDERAB LES Final Result Performing Organization Address [facility] Co de Phone Number [address] [place] [address], [place] * (ABNORMAL) Bedside Glucose *Place/Obtain serum glucose if >500 per glucometer. (05/10/2025 5:57 PM EDT) Bedside Glucose (POC) 265(H) 65 - 99 mg/dL 05/10/2025 6:18 PM EDT [facility] arterial/capilla ry 05/10/2025 5:57 PM EDT 05/10/2025 6:18 PM EDT us Wesly Morse MD POINT OF CARE TEST ORDERAB LES Final Result Performing Organization Address City/[facility] Co de Phone Number [address] [place] [address], [place] * Magnesium (05/10/2025 4:00 PM EDT) MAGNESIUM 2.3 1.8 - 2.6 mg/dL 05/10/2025 4:32 PM EDT [facility] Blood Venous blood / Unknown Venipuncture / Unknown 05/10/2025 4:00 PM EDT 05/10/2025 4:13 PM EDT us Wesly Morse MD LAB BLOOD ORDERABLES Final Result Performing Organization Address [facility] Co de Phone Number [address] [place] [address], [place] * (ABNORMAL) Bedside Glucose *Place/Obtain serum glucose if >500 per glucometer. (05/10/2025 11:40AM EDT) [facility] Bedside Glucose (POC) 219(H) 65 - 99 mg/dL 05/10/2025 11:48 AM EDT [facility] arterial/capilla ry 05/10/2025 11:40 AM EDT 05/10/2025 11:48 AM EDT us Wesly Morse MD POINT OF CARE TEST ORDERAB LES Final Result Performing Organization Address City/[facility] Co de Phone Number [address] [place] [address], [place] * (ABNORMAL) B-type natriuretic peptide (05/10/2025 5:32 AM EDT) BNP 428(H) <=100 pg/mL 05/10/2025 12:41 PM EDT [facility] Blood Venous blood / Unknown Venipuncture / Unknown 05/10/2025 5:32 AM EDT 05/10/2025 5:58 AM EDT us Vandana John HEATING AND VENTILATING D[employer]TER[employer]DOORMAKER LAB BLOOD ORDERABLES Final Result [facility] [address] [place] [address], [place] * (ABNORMAL) CBC auto differential (05/10/2025 5:32 AM EDT) WBC 4.5 4 - 11 x10E9/L 05/10/2025 6:11 AM EDT [facility] RBC Count 2.59(L) 3.8 - 5.2 X10E12/L 05/10/2025 6:11 AM EDT [facility] Hemoglobin 7.5(L) 11.7 - 15.5 g/dL 05/10/2025 6:11 AM EDT [facility] Hematocrit 22.5(L) 35 - 47 % 05/10/2025 6:11 AM EDT [facility] MCV 87 80 - 100 fL 05/10/2025 6:11 AM EDT [facility] MCH 29.1 27 - 34 pg 05/10/2025 6:11 AM EDT [facility] MCHC 33.5 32 - 36 g/dL 05/10/2025 6:11 AM EDT [facility] RDW 19.8(H) 11.5 - 15 % 05/10/2025 6:11 AM EDT [facility] Platelet Count 198 150 - 450 X10E9/L 05/10/2025 6:11 AM EDT [facility] MPV 9.9 7 - 12 fL 05/10/2025 6:11 AM EDT [facility] Neutrophils % 56.6 % 05/10/2025 6:11 AM EDT [facility] Lymphocytes % 30.5 % 05/10/2025 6:11 AM EDT [facility] Monocytes % 9.6 % 05/10/2025 6:11 AM EDT [facility] Eosinophils % 2.2 % 05/10/2025 6:11 AM EDT [facility] Basophils % 1.1 % 05/10/2025 6:11 AM EDT [facility] Neutrophils Absolute (A) 2.6 1.5 - 6.6 10*3/uL 05/10/2025 6:11 AM EDT [facility] Lymphocytes Absolute 1.4 1.0 - 3.5 10*3/uL 05/10/2025 6:11 AM EDT [facility] Monocytes Absolute 0.4 0.0 - 0.9 10*3/uL 05/10/2025 6:11 AM EDT [facility] Eosinophils Absolute 0.1 0.0 - 0.4 10*3/uL 05/10/2025 6:11 AM EDT [facility] Basophils Absolute 0.0 0.0 - 0.2 10*3/uL 05/10/2025 6:11 AM EDT [facility] Differential Type AUTOMATED DIFFERENTIAL 05/10/2025 6:11 AM EDT [facility] Blood Venous blood / Unknown Venipuncture / Unknown 05/10/2025 5:32 AM EDT 05/10/2025 5:58 AM EDT us Luigi Reese HEATING AND VENTILATING DRAFTER-DOORMAKER LAB BLOOD ORDERABLES Fin al Result Performing Organization Address City/State/[facility] Co de Phone Number [facility] [address] [place] [address], * Magnesium (05/10/2025 5:32 AM EDT) MAGNESIUM 1.8 1.8 - 2.6 mg/dL 05/10/2025 6:34 AM EDT [facility] Blood Venous blood / Unknown Venipuncture / Unknown 05/10/2025 5:32 AM EDT 05/10/2025 5:58 AM EDT us Luigi Baird Aleenaeleanor HEATING [employer] VENTILATING D[employer]TER[employer]DOORMAKER LAB BLOOD ORDERABLES Fin al Result [facility] [address] [place] [address], [place] * (ABNORMAL) Comprehensive metabolic panel (05/10/2025 5:32 AM EDT) SODIUM 136 134 - 146 mmol/L 05/10/2025 6:34 AM EDT [facility] POTASSIUM 4.6 3.5 - 5.0 mmol/L 05/10/2025 6:34 AM EDT [facility] CHLORIDE 105 98 - 109 mmol/L 05/10/2025 6:34 AM EDT [facility] CARBON DIOXIDE 24 22 - 32 mmol/L 05/10/2025 6:34 AM EDT [facility] ANION GAP 7 5 - 15 mmol/L 05/10/2025 6:34 AM EDT [facility] BLOOD UREA NITROGEN 32(H) 5 - 27 mg/dL 05/10/2025 6:34 AM EDT [facility] CREATININE 1.77(H) 0.40 - 1.00 mg/dL 05/10/2025 6:34 AM EDT [facility] Comment:METHOD TRACEABLE TO IDMS STANDARD GLUCOSE 110(H) 65 - 99 mg/dL 05/10/2025 6:34 AM EDT [facility] CALCIUM 8.6 8.5 - 10.5 mg/dL 05/10/2025 6:34 AM EDT [facility] TOTAL PROTEIN 4.8(L) 6.0 - 8.0 g/dL 05/10/2025 6:34 AM EDT [facility] ALBUMIN 2.4(L) 3.2 - 5.3 g/dL 05/10/2025 6:34 AM EDT [facility] ALKALINE PHOSPHATASE 124 39 - 130 U/L 05/10/2025 6:34 AM EDT [facility] AST 74(H) <=41 U/L 05/10/2025 6:34 AM EDT [facility] ALT 69(H) <=31 U/L 05/10/2025 6:34 AM EDT [facility] BILIRUBIN,TOTAL 0.8 0.3 - 1.2 mg/dL 05/10/2025 6:34 AM EDT [facility] EGFR Non-Race Dependent 29(L) >=60 ml/min/1.7 3sq.m 05/10/2025 6:34 AM EDT [facility] Comment: eGFR not reported due to non-numeric value for Creatinine. Reported eGFR is based on the CKD-EPI 2020 equation that does not use a race coefficient. Blood Venous blood / Unknown Venipuncture / Unknown 05/10/2025 5:32 AM EDT 05/10/2025 5:58 AM EDT us Luigi Reese APRN-DOORMAKER LAB BLOOD ORDERABLES Fin al Result Performing Organization Address City/[facility]/ZIP Co de Phone Number [address] [place] [address], [place] * Anti XA unfractionated heparin (05/10/2025 5:32 AM EDT) ANTI XA UFH 0.37 0.30 - 0.70 IU/mL 05/10/2025 6:13 AM EDT [facility] Comment: Optimal time for testing is 6 hrs post dosage This test is specific for monitoring patients on UFH, and is not recommended for use with other Anti-Xa medications. Blood Venous blood / Unknown Venipuncture / Unknown 05/10/2025 5:32 AM EDT 05/10/2025 5:58 AM EDT us Laina Rome MD LAB BLOOD ORDERABLES Final Result Performing Organization Address [facility]/ZIP Co de Phone Number [address] [place] [address], [place] * (ABNORMAL) Bedside Glucose *Place/Obtain serum glucose if >500 per glucometer. (05/09/2025 8:51 PM EDT) Bedside Glucose (POC) 122(H) 65 - 99 mg/dL 05/09/2025 11:45 PM EDT [facility] arterial/capilla ry 05/09/2025 8:51 PM EDT 05/09/2025 11:44 PM EDT us Laina Rome MD POINT OF CARE TEST ORDERAB LES Final Result [address] [place] [address], [place] * (ABNORMAL) Bedside Glucose *Place/Obtain serum glucose if >500 per glucometer. (05/09/2025 4:34 PM EDT) Bedside Glucose (POC) 173(H) 65 - 99 mg/dL 05/09/2025 11:44 PM EDT [facility] arterial/capilla ry 05/09/2025 4:34 PM EDT 05/09/2025 11:44 PM EDT us Laina Rome MD POINT OF CARE TEST ORDERAB LES Final Result Performing Organization Address City/[facility]/ZIP Co de Phone Number [address] [place] [address], [place] * (ABNORMAL) Bedside Glucose *Place/Obtain serum glucose if >500 per glucometer. (05/09/2025 11:07AM EDT) Bedside Glucose (POC) 224(H) 65 - 99 mg/dL 05/09/2025 11:45 AM EDT [facility] arterial/capilla ry 05/09/2025 11:07 AM EDT 05/09/2025 11:45 AM EDT us Laina Rome MD POINT OF CARE TEST ORDERAB LES Final Result Performing Organization Address City/[facility]/ZIP Co de Phone Number [address] [place] [address], [place] * Magnesium (05/09/2025 11:03 AM EDT) Pathologist [facility] MAGNESIUM 2.1 1.8 - 2.6 mg/dL 05/09/2025 11:25 AM EDT [facility] Blood Venous blood / Unknown Venipuncture / Unknown 05/09/2025 11:03 AM EDT 05/09/2025 11:06 AM EDT Laina Rome MD LAB BLOOD ORDERABLES Final Result Performing Organization Address City/[facility] Co de Phone Number [address] [place] [address], [place] * (ABNORMAL) Bedside Glucose *Place/Obtain serum glucose if >500 per glucometer. (05/09/2025 7:47 AM EDT) [facility] Bedside Glucose (POC) 132(H) 65 - 99 mg/dL 05/09/2025 7:48 AM EDT [facility] arterial/capilla ry 05/09/2025 7:47 AM EDT 05/09/2025 7:48 AM EDT Laina Rome MD POINT OF CARE TEST ORDERAB LES Final Result Performing Organization Address City/[facility]/ZIP Co de Phone Number [address] [place] [address], [place] * (ABNORMAL) CBC auto differential (05/09/2025 2:31 AM EDT) Pathologist [facility] WBC 4.2 4 - 11 x10E9/L 05/09/2025 2:54 AM EDT [facility] RBC Count 2.72(L) 3.8 - 5.2 X10E12/L 05/09/2025 2:54 AM EDT [facility] Hemoglobin 7.9(L) 11.7 - 15.5 g/dL 05/09/2025 2:54 AM EDT [facility] Hematocrit 23.8(L) 35 - 47 % 05/09/2025 2:54 AM EDT [facility] MCV 88 80 - 100 fL 05/09/2025 2:54 AM EDT [facility] MCH 29.0 27 - 34 pg 05/09/2025 2:54 AM EDT [facility] MCHC 33.2 32 - 36 g/dL 05/09/2025 2:54 AM EDT [facility] RDW 19.7(H) 11.5 - 15 % 05/09/2025 2:54 AM EDT [facility] Platelet Count 195 150 - 450 X10E9/L 05/09/2025 2:54 AM EDT [facility] MPV 9.3 7 - 12 fL 05/09/2025 2:54 AM EDT [facility] Neutrophils % 49.3 % 05/09/2025 2:54 AM EDT [facility] Lymphocytes % 37.3 % 05/09/2025 2:54 AM EDT [facility] Monocytes % 10.4 % 05/09/2025 2:54 AM EDT [facility] Eosinophils % 2.2 % 05/09/2025 2:54 AM EDT [facility] Basophils % 0.8 % 05/09/2025 2:54 AM EDT [facility] Neutrophils Absolute (A) 2.1 1.5 - 6.6 10*3/uL 05/09/2025 2:54 AM EDT [facility] Lymphocytes Absolute 1.6 1.0 - 3.5 10*3/uL 05/09/2025 2:54 AM EDT [facility] Monocytes Absolute 0.4 0.0 - 0.9 10*3/uL 05/09/2025 2:54 AM EDT [facility] Eosinophils Absolute 0.1 0.0 - 0.4 10*3/uL 05/09/2025 2:54 AM EDT [facility] Basophils Absolute 0.0 0.0 - 0.2 10*3/uL 05/09/2025 2:54 AM EDT [facility] Differential Type AUTOMATED DIFFERENTIAL 05/09/2025 2:54 AM EDT [facility] Blood Venous blood / Unknown Venipuncture / Unknown 05/09/2025 2:31 AM EDT 05/09/2025 2:34 AM EDT Luigi Reese [employer] LAB BLOOD ORDERABLES Fin al Result Performing Organization Address City/[facility]/ZIP Co de Phone Number [address] [place] [address], [place] * (ABNORMAL) Magnesium (05/09/2025 2:31 AM EDT) MAGNESIUM 1.7(L) 1.8 - 2.6 mg/dL 05/09/2025 2:59 AM EDT [facility] Blood Venous blood / Unknown Venipuncture / Unknown 05/09/2025 2:31 AM EDT 05/09/2025 2:34 AM EDT Luigi Reese APRN-DOORMA[employer]ER LAB BLOOD ORDERABLES Fin al Result Performing Organization Address City/State/[facility] Co de Phone Number [address] [place] [address], [place] * (ABNORMAL) Comprehensive metabolic panel (05/09/2025 2:31 AM EDT) SODIUM 136 134 - 146 mmol/L 05/09/2025 2:59 AM EDT [facility] POTASSIUM 4.6 3.5 - 5.0 mmol/L 05/09/2025 2:59 AM EDT [facility] CHLORIDE 110(H) 98 - 109 mmol/L 05/09/2025 2:59 AM EDT [facility] CARBON DIOXIDE 25 22 - 32 mmol/L 05/09/2025 2:59 AM EDT [facility] ANION GAP 1(L) 5 - 15 mmol/L 05/09/2025 2:59 AM EDT [facility] BLOOD UREA NITROGEN 35(H) 5 - 27 mg/dL 05/09/2025 2:59 AM EDT [facility] CREATININE 1.56(H) 0.40 - 1.00 mg/dL 05/09/2025 2:59 AM EDT [facility] Comment:METHOD TRACEABLE TO IDMS STANDARD GLUCOSE 137(H) 65 - 99 mg/dL 05/09/2025 2:59 AM EDT [facility] CALCIUM 8.4(L) 8.5 - 10.5 mg/dL 05/09/2025 2:59 AM EDT [facility] TOTAL PROTEIN 5.0(L) 6.0 - 8.0 g/dL 05/09/2025 2:59 AM EDT [facility] ALBUMIN 2.6(L) 3.2 - 5.3 g/dL 05/09/2025 2:59 AM EDT [facility] ALKALINE PHOSPHATASE 134(H) 39 - 130 U/L 05/09/2025 2:59 AM EDT [facility] AST 96(H) <=41 U/L 05/09/2025 2:59 AM EDT [facility] ALT 90(H) <=31 U/L 05/09/2025 2:59 AM EDT [facility] BILIRUBIN,TOTAL 0.3 0.3 - 1.2 mg/dL 05/09/2025 2:59 AM EDT [facility] EGFR Non-Race Dependent 34(L) >=60 ml/min/1.7 3sq.m 05/09/2025 2:59 AM EDT [facility] Comment: Reported eGFR is based on the CKD-EPI 2020 equation that does not use a race coefficient. Blood Venous blood / Unknown Venipuncture / Unknown 05/09/2025 2:31 AM EDT 05/09/2025 2:34 AM EDT Luigi Reese [employer] LAB BLOOD ORDERABLES Fin al Result Performing Organization Address [facility]/ZIP Co de Phone Number [address] [place] [address], [place] * Anti XA unfractionated heparin (05/09/2025 2:31 AM EDT) ANTI XA UFH 0.39 0.30 - 0.70 IU/mL 05/09/2025 2:55 AM EDT [facility] Comment: Optimal time for testing is 6 hrs post dosage This test is specific for monitoring patients on UFH, and is not recommended for use with other Anti-Xa medications. Blood Venous blood / Unknown Venipuncture / Unknown 05/09/2025 2:31 AM EDT 05/09/2025 2:34 AM EDT Laina Rome MD LAB BLOOD ORDERABLES Final Result Performing Organization Address [facility] Co de Phone Number [address] [place] [address], [place] * (ABNORMAL) Bedside Glucose *Place/Obtain serum glucose if >500 per glucometer. (05/08/2025 9:06 PM EDT) Bedside Glucose (POC) 163(H) 65 - 99 mg/dL 05/08/2025 9:08 PM EDT [facility] arterial/capilla ry 05/08/2025 9:06 PM EDT 05/08/2025 9:08 PM EDT us Laina Rome MD POINT OF CARE TEST ORDERAB LES Final Result Performing Organization Address City/[facility] Co de Phone Number [address] [place] [address], [place] * Anti XA unfractionated heparin (05/08/2025 7:40 PM EDT) ANTI XA UFH 0.30 0.30 - 0.70 IU/mL 05/08/2025 8:00 PM EDT [facility] Comment: Optimal time for testing is 6 hrs post dosage This test is specific for monitoring patients on UFH, and is not recommended for use with other Anti-Xa medications. Blood Venous blood / Unknown Venipuncture / Unknown 05/08/2025 7:40 PM EDT 05/08/2025 7:43 PM EDT us Bethanie Marquez [employer] LAB BLOOD ORDERABLES Sadaf l Result Performing Organization Address City/[facility]/ZIP Co de Phone Number [address] [place] [address], [place] * (ABNORMAL) Bedside Glucose *Place/Obtain serum glucose if >500 per glucometer. (05/08/2025 4:18PM EDT) [facility] Bedside Glucose (POC) 153(H) 65 - 99 mg/dL 05/08/2025 4:19 PM EDT [facility] arterial/capilla ry 05/08/2025 4:18 PM EDT 05/08/2025 4:19 PM EDT us Laina Rome MD POINT OF CARE TEST ORDERAB LES Final Result [address] [place] [address], [place] * Protime & INR (05/08/2025 12:35 PM EDT) Pathologist [facility] PROTIME 10.9 9.8 - 13.2 sec 05/08/2025 12:49 PM EDT [facility] INR 0.9 0.9 - 1.2 05/08/2025 12:49 PM EDT [facility] Blood Venous blood / Unknown Venipuncture / Unknown 05/08/2025 12:35 PM EDT 05/08/2025 12:43 PM EDT us Kaceymarleny Marquez [employer] LAB BLOOD ORDERABLES Sadaf l Result [address] [place] [address], [place] * Bedside Glucose *Place/Obtain serum glucose if >500 per glucometer. (05/08/2025 12:00 PM EDT) Bedside Glucose (POC) 91 65 - 99 mg/dL 05/08/2025 12:08 PM EDT [facility] arterial/capilla ry 05/08/2025 12:00 PM EDT 05/08/2025 12:08 PM EDT us Laina Rome MD POINT OF CARE TEST ORDERAB LES Final Result Performing Organization Address City/[facility]/ZIP Co de Phone Number [address] [place] [address], [place] * Lavender Top (05/08/2025 11:08 AM EDT) Extra Tube Auto Resulted 05/08/2025 1:01 PM EDT [facility] Blood Venous blood / Unknown 05/08/2025 11:08 AM EDT 05/08/2025 11:14 AM EDT us Laina Rome MD LAB BLOOD ORDERABLES Final Result [address] [place] [address], [place] * PST TOP (05/08/2025 11:08 AM EDT) Extra Tube Auto Resulted 05/08/2025 1:01 PM EDT [facility] Blood Venous blood / Unknown 05/08/2025 11:08 AM EDT 05/08/2025 11:14 AM EDT Laina Rome MD LAB BLOOD ORDERABLES Final Result Performing Organization Address City/[facility]/ZIP Co de Phone Number [address] [place] [address], [place] * (ABNORMAL) APTT (05/08/2025 11:08 AM EDT) APTT 25(L) 26 - 37 sec 05/08/2025 11:25 AM EDT [facility] Blood Venous blood / Unknown Venipuncture / Unknown 05/08/2025 11:08 AM EDT 05/08/2025 11:12 AM EDT us Bethnaie Marquez [employer] LAB BLOOD ORDERABLES Sadaf l Result Performing Organization Address [facility] Co de Phone Number [address] [place] [address], [place] * Bedside Glucose *Place/Obtain serum glucose if >500 per glucometer. (05/08/2025 7:51 AM EDT) Bedside Glucose (POC) 70 65 - 99 mg/dL 05/08/2025 7:54 AM EDT [facility] arterial/capilla ry 05/08/2025 7:51 AM EDT 05/08/2025 7:54 AM EDT us Laina Rome MD POINT OF CARE TEST ORDERAB LES Final Result Performing Organization Address City/[facility]/ZIP Co de Phone Number [address] [place] [address], [place] * (ABNORMAL) CBC auto differential (05/08/2025 5:17 AM EDT) WBC 4.9 4 - 11 x10E9/L 05/08/2025 5:32 AM EDT [facility] RBC Count 2.63(L) 3.8 - 5.2 X10E12/L 05/08/2025 5:32 AM EDT [facility] Hemoglobin 7.7(L) 11.7 - 15.5 g/dL 05/08/2025 5:32 AM EDT [facility] Hematocrit 23.0(L) 35 - 47 % 05/08/2025 5:32 AM EDT [facility] MCV 88 80 - 100 fL 05/08/2025 5:32 AM EDT [facility] MCH 29.3 27 - 34 pg 05/08/2025 5:32 AM EDT [facility] MCHC 33.5 32 - 36 g/dL 05/08/2025 5:32 AM EDT [facility] RDW 19.2(H) 11.5 - 15 % 05/08/2025 5:32 AM EDT [facility] Platelet Count 192 150 - 450 X10E9/L 05/08/2025 5:32 AM EDT [facility] MPV 9.5 7 - 12 fL 05/08/2025 5:32 AM EDT [facility] Neutrophils % 56.5 % 05/08/2025 5:32 AM EDT [facility] Lymphocytes % 29.7 % 05/08/2025 5:32 AM EDT [facility] Monocytes % 11.3 % 05/08/2025 5:32 AM EDT [facility] Eosinophils % 1.7 % 05/08/2025 5:32 AM EDT [facility] Basophils % 0.8 % 05/08/2025 5:32 AM EDT [facility] Neutrophils Absolute (A) 2.8 1.5 - 6.6 10*3/uL 05/08/2025 5:32 AM EDT [facility] Lymphocytes Absolute 1.5 1.0 - 3.5 10*3/uL 05/08/2025 5:32 AM EDT [facility] Monocytes Absolute 0.6 0.0 - 0.9 10*3/uL 05/08/2025 5:32 AM EDT [facility] Eosinophils Absolute 0.1 0.0 - 0.4 10*3/uL 05/08/2025 5:32 AM EDT [facility] Basophils Absolute 0.0 0.0 - 0.2 10*3/uL 05/08/2025 5:32 AM EDT [facility] Differential Type AUTOMATED DIFFERENTIAL 05/08/2025 5:32 AM EDT [facility] Blood Venous blood / Unknown Venipuncture / Unknown 05/08/2025 5:17 AM EDT 05/08/2025 5:19 AM EDT Luigi Reese [employer] LAB BLOOD ORDERABLES Fin al Result Performing Organization Address City/[facility]/ZIP Co de Phone Number [address] [place] [address], [place] * Magnesium (05/08/2025 5:17 AM EDT) MAGNESIUM 1.8 1.8 - 2.6 mg/dL 05/08/2025 5:40 AM EDT [facility] Blood Venous blood / Unknown Venipuncture / Unknown 05/08/2025 5:17 AM EDT 05/08/2025 5:19 AM EDT Luigi Floodzer [employer] LAB BLOOD ORDERABLES Fin al Result Performing Organization Address City/[facility]/ZIP Co de Phone Number [address] [place] [address], [place] * (ABNORMAL) Comprehensive metabolic panel (05/08/2025 5:17 AM EDT) SODIUM 136 134 - 146 mmol/L 05/08/2025 5:40 AM EDT [facility] POTASSIUM 4.1 3.5 - 5.0 mmol/L 05/08/2025 5:40 AM EDT [facility] CHLORIDE 107 98 - 109 mmol/L 05/08/2025 5:40 AM EDT [facility] CARBON DIOXIDE 23 22 - 32 mmol/L 05/08/2025 5:40 AM EDT [facility] ANION GAP 6 5 - 15 mmol/L 05/08/2025 5:40 AM EDT [facility] BLOOD UREA NITROGEN 36(H) 5 - 27 mg/dL 05/08/2025 5:40 AM EDT [facility] CREATININE 1.59(H) 0.40 - 1.00 mg/dL 05/08/2025 5:40 AM EDT [facility] Comment:METHOD TRACEABLE TO IDMS STANDARD GLUCOSE 58(L) 65 - 99 mg/dL 05/08/2025 5:40 AM EDT [facility] CALCIUM 8.3(L) 8.5 - 10.5 mg/dL 05/08/2025 5:40 AM EDT [facility] TOTAL PROTEIN 4.8(L) 6.0 - 8.0 g/dL 05/08/2025 5:40 AM EDT [facility] ALBUMIN 2.4(L) 3.2 - 5.3 g/dL 05/08/2025 5:40 AM EDT [facility] ALKALINE PHOSPHATASE 108 39 - 130 U/L 05/08/2025 5:40 AM EDT [facility] AST 126(H) <=41 U/L 05/08/2025 5:40 AM EDT [facility] ALT 100(H) <=31 U/L 05/08/2025 5:40 AM EDT [facility] BILIRUBIN,TOTAL 0.6 0.3 - 1.2 mg/dL 05/08/2025 5:40 AM EDT [facility] EGFR Non-Race Dependent 33(L) >=60 ml/min/1.7 3sq.m 05/08/2025 5:40 AM EDT [facility] Comment: eGFR not reported due to non-numeric value for Creatinine. Reported eGFR is based on the CKD-EPI 2020 equation that does not use a race coefficient. Blood Venous blood / Unknown Venipuncture / Unknown 05/08/2025 5:17 AM EDT 05/08/2025 5:19 AM EDT us Luigi Reese [employer] LAB BLOOD ORDERABLES Fin al Result Performing Organization Address City/[facility]/ZIP Co de Phone Number [address] [place] [address], [place] * (ABNORMAL) Bedside Glucose *Place/Obtain serum glucose if >500 per glucometer. (05/07/2025 8:48 PM EDT) Bedside Glucose (POC) 186(H) 65 - 99 mg/dL 05/07/2025 8:53 PM EDT [facility] arterial/capilla ry 05/07/2025 8:48 PM EDT 05/07/2025 8:53 PM EDT us Laina Rome MD POINT OF CARE TEST ORDERAB LES Final Result Performing Organization Address City/[facility]/ZIP Co de Phone Number [address] [place] [address], [place] * (ABNORMAL) Bedside Glucose *Place/Obtain serum glucose if >500 per glucometer. (05/07/2025 4:56 PM EDT) Bedside Glucose (POC) 246(H) 65 - 99 mg/dL 05/07/2025 4:57 PM EDT [facility] arterial/capilla ry 05/07/2025 4:56 PM EDT 05/07/2025 4:57 PM EDT us Laina Rome MD POINT OF CARE TEST ORDERAB LES Final Result Performing Organization Address City/[facility]/ZIP Co de Phone Number [address] [place] [address], * (ABNORMAL) Bedside Glucose *Place/Obtain serum glucose if >500 per glucometer. (05/07/2025 1:12 PM EDT) Bedside Glucose (POC) 105(H) 65 - 99 mg/dL 05/07/2025 1:16 PM EDT [facility] arterial/capilla ry 05/07/2025 1:12 PM EDT 05/07/2025 1:16 PM EDT us Laina Rome MD POINT OF CARE TEST ORDERAB LES Final Result Performing Organization Address City/[facility] Co de Phone Number [address] [place] [address], * Colonoscopy Report (05/07/2025 12:10 PM EDT) [...] EDT) Case Report Surgical Pathology Report Case: [id number] Authorizing Provider: Kelvin Myles MD Collected: 05/07/2025 1205 Ordering Location: [facility] Received: 05/07/2025 160[address] [facility] - Surgery Pathologist: Azalia Lam MD Specimen: Colon, sigmoid biopsies 05/13/2025 6:49 PM EDT [facility] Final Diagnosis Sigmoid colon, biopsy: Acute inflammation with extensive ulceration and features consistent with ischemic colitis. 05/13/2025 6:49 PM EDT [facility] at 1848 EDT Comment diagnosis confirmed with pancytokeratin and cytokeratin 20 immunostain. 05/13/2025 6:49 PM EDT [facility] Gross Description Received in formalin labeled PATRIZIA, sigmoid biopsies are two light hopkins feathery soft tissue bits, 0.1 and 0.3 cm. The specimen is filtered and entirely submitted in a single cassette. (1, ns, [id number],m3) DM. 05/13/2025 6:49 PM EDT [facility] Embedded Images 05/13/2025 6:49 PM EDT [facility] Tissue Colon structure / Unknown 05/07/2025 12:05 PM EDT 05/07/2025 4:03 PM EDT Comment:Pre-op diagnosis: Anemia Kelvin Myles MD PATHOLOGY/CYTOLOGY ORDERAB LES Final Result [facility] [address] [place] [address], * Colonoscopy (05/07/2025 11:45 AM EDT) 05/07/2025 11:4 5 AM EDT Narrative PM CARDIOVASCULAR - 05/07/2025 12:13 PM EDT [facility] Patient Name: Irma Caceres Procedure Date No Time: 05/07/2025 CSN : [id number] Date of : 1945 Admit Type: Outpatient Age: 80 Room: [place] [address] Gender: Female Note Status: Finalized Attending MD: Kelvin Myles , , Procedure: Colonoscopy Indications: Melena Providers: Kelvin Myles Medicines: Monitored Anesthesia Care Complications: No immediate complications. Procedure: After I obtained informed consent, the scope was passed under direct vision. Throughout the procedure, the patient's blood pressure, pulse, and oxygen saturations were monitored continuously. The OLYMPUS PCF-H190DL # [id number] PEDIATRIC COLONOSCOPE was introduced through the anus [...] results. Regular diet. Okay to discharge to [facility] MD Kelvin Gaitan, 05/07/2025 12:13:09 PM This report has been signed electronically.Kelvin Myles Number of Addenda: 0 Note Initiated On: 05/07/2025 11:45 AM Procedure Note Kelvin Myles MD - 05/07/2025 [facility] Patient Name: Irma Caceres Procedure Date No Time: 05/07/2025 CSN : [id number] Date of : 1945 Admit Type: Outpatient Age: 80 Room: [place] [address] Gender: Female Note Status: Finalized Attending MD: Kelvin Myles , , Procedure: Colonoscopy Indications: Melena Providers: Kelvin Myles Medicines: Monitored Anesthesia Care Complications: No immediate complications. Procedure: After I obtained informed consent, the scope was passed under direct vision. Throughout theprocedure, the patient's blood pressure, pulse, and oxygen saturations were monitored continuously. TheOLYMPUS PCF-H190DL # [id number] PEDIATRIC COLONOSCOPE was introduced through the anus [...] results. Regular diet. Okay to discharge to [facility] MD Kelvin Gaitan, 05/07/2025 12:13:09 PM This report has been signed electronically.Kelvin Myles Number of Addenda: 0 Note Initiated On: 05/07/2025 11:45 AM Kelvin Myles MD GI PROCEDURE ORDERABLES Fi nal Result Performing Organization Address City/[facility]/ZIP Co de Phone Number PM CARDIOVASCULAR * Light Blue Top (05/07/2025 5:32 AM EDT) Extra Tube Auto Resulted 05/07/2025 7:01 AM EDT [facility] Blood Venous blood / Unknown 05/07/2025 5:32 AM EDT 05/07/2025 5:45 AM EDT Laina Rome MD LAB BLOOD ORDERABLES Final Result Performing Organization Address City/[facility] Co de Phone Number [facility] [address] [place] [address], * (ABNORMAL) CBC auto differential (05/07/2025 5:32 AM EDT) WBC 4.5 4 - 11 x10E9/L 05/07/2025 5:48 AM EDT [facility] RBC Count 2.81(L) 3.8 - 5.2 X10E12/L 05/07/2025 5:48 AM EDT [facility] Hemoglobin 8.2(L) 11.7 - 15.5 g/dL 05/07/2025 5:48 AM EDT [facility] Hematocrit 24.6(L) 35 - 47 % 05/07/2025 5:48 AM EDT [facility] MCV 88 80 - 100 fL 05/07/2025 5:48 AM EDT [facility] MCH 29.3 27 - 34 pg 05/07/2025 5:48 AM EDT [facility] MCHC 33.5 32 - 36 g/dL 05/07/2025 5:48 AM EDT [facility] RDW 19.2(H) 11.5 - 15 % 05/07/2025 5:48 AM EDT [facility] Platelet Count 194 150 - 450 X10E9/L 05/07/2025 5:48 AM EDT [facility] MPV 9.4 7 - 12 fL 05/07/2025 5:48 AM EDT [facility] Neutrophils % 61.4 % 05/07/2025 5:48 AM EDT [facility] Lymphocytes % 27.3 % 05/07/2025 5:48 AM EDT [facility] Monocytes % 8.8 % 05/07/2025 5:48 AM EDT [facility] Eosinophils % 1.8 % 05/07/2025 5:48 AM EDT [facility] Basophils % 0.7 % 05/07/2025 5:48 AM EDT [facility] Neutrophils Absolute (A) 2.8 1.5 - 6.6 10*3/uL 05/07/2025 5:48 AM EDT [facility] Lymphocytes Absolute 1.2 1.0 - 3.5 10*3/uL 05/07/2025 5:48 AM EDT [facility] Monocytes Absolute 0.4 0.0 - 0.9 10*3/uL 05/07/2025 5:48 AM EDT [facility] Eosinophils Absolute 0.1 0.0 - 0.4 10*3/uL 05/07/2025 5:48 AM EDT [facility] Basophils Absolute 0.0 0.0 - 0.2 10*3/uL 05/07/2025 5:48 AM EDT [facility] Differential Type AUTOMATED DIFFERENTIAL 05/07/2025 5:48 AM EDT [facility] Blood Venous blood / Unknown Venipuncture / Unknown 05/07/2025 5:32 AM EDT 05/07/2025 5:41 AM EDT Luigi Reese [employer] LAB BLOOD ORDERABLES Fin al Result Performing Organization Address [facility] Co de Phone Number [address] [place] [address], [place] * Magnesium (05/07/2025 5:32 AM EDT) MAGNESIUM 1.9 1.8 - 2.6 mg/dL 05/07/2025 6:10 AM EDT [facility] Blood Venous blood / Unknown Venipuncture / Unknown 05/07/2025 5:32 AM EDT 05/07/2025 5:41 AM EDT Luigi Reese [employer] LAB BLOOD ORDERABLES Fin al Result Performing Organization Address City/[facility] Co de Phone Number [address] [place] [address], [place] * (ABNORMAL) Comprehensive metabolic panel (05/07/2025 5:32 AM EDT) SODIUM 135 134 - 146 mmol/L 05/07/2025 6:10 AM EDT [facility] POTASSIUM 4.0 3.5 - 5.0 mmol/L 05/07/2025 6:10 AM EDT [facility] CHLORIDE 106 98 - 109 mmol/L 05/07/2025 6:10 AM EDT [facility] CARBON DIOXIDE 23 22 - 32 mmol/L 05/07/2025 6:10 AM EDT [facility] ANION GAP 6 5 - 15 mmol/L 05/07/2025 6:10 AM EDT [facility] BLOOD UREA NITROGEN 44(H) 5 - 27 mg/dL 05/07/2025 6:10 AM EDT [facility] CREATININE 1.65(H) 0.40 - 1.00 mg/dL 05/07/2025 6:10 AM EDT [facility] Comment:METHOD TRACEABLE TO IDMS STANDARD GLUCOSE 119(H) 65 - 99 mg/dL 05/07/2025 6:10 AM EDT [facility] CALCIUM 8.6 8.5 - 10.5 mg/dL 05/07/2025 6:10 AM EDT [facility] TOTAL PROTEIN 5.3(L) 6.0 - 8.0 g/dL 05/07/2025 6:10 AM EDT [facility] ALBUMIN 2.7(L) 3.2 - 5.3 g/dL 05/07/2025 6:10 AM EDT [facility] ALKALINE PHOSPHATASE 119 39 - 130 U/L 05/07/2025 6:10 AM EDT [facility] AST 160(H) <=41 U/L 05/07/2025 6:10 AM EDT [facility] ALT 124(H) <=31 U/L 05/07/2025 6:10 AM EDT [facility] BILIRUBIN,TOTAL 0.9 0.3 - 1.2 mg/dL 05/07/2025 6:10 AM EDT [facility] EGFR Non-Race Dependent 31(L) >=60 ml/min/1.7 3sq.m 05/07/2025 6:10 AM EDT [facility] Comment: eGFR not reported due to non-numeric value for Creatinine. Reported eGFR is based on the CKD-EPI 2020 equation that does not use a race coefficient. Blood Venous blood / Unknown Venipuncture / Unknown 05/07/2025 5:32 AM EDT 05/07/2025 5:41 AM EDT us Luigi Baird Aleenaeleanor [employer] LAB BLOOD ORDERABLES Fin al Result Performing Organization Address City/[facility]/ZIP Co de Phone Number [address] [place] [address], [place] * (ABNORMAL) Bedside Glucose *Place/Obtain serum glucose if >500 per glucometer. (05/06/2025 10:15PM EDT) Bedside Glucose (POC) 122(H) 65 - 99 mg/dL 05/06/2025 10:22 PM EDT [facility] arterial/capilla ry 05/06/2025 10:15 PM EDT 05/06/2025 10:21 PM EDT us Laina Rome MD POINT OF CARE TEST ORDERAB LES Final Result Performing Organization Address [facility] Co de Phone Number [address] [place] [address], [place] * (ABNORMAL) Bedside Glucose *Place/Obtain serum glucose if >500 per glucometer. (05/06/2025 5:01 PM EDT) Bedside Glucose (POC) 124(H) 65 - 99 mg/dL 05/06/2025 5:04 PM EDT [facility] arterial/capilla ry 05/06/2025 5:01 PM EDT 05/06/2025 5:04 PM EDT us Laina Rome MD POINT OF CARE TEST ORDERAB LES Final Result Performing Organization Address City/[facility]/ZIP Co de Phone Number [address] [place] [address], [place] * Bedside Glucose *Place/Obtain serum glucose if >500 per glucometer. (05/06/2025 12:49 PM EDT) Bedside Glucose (POC) 79 65 - 99 mg/dL 05/06/2025 12:53 PM EDT [facility] arterial/capilla ry 05/06/2025 12:49 PM EDT 05/06/2025 12:53 PM EDT us Laina Rome MD POINT OF CARE TEST ORDERAB LES Final Result [facility] [address] [place] [address], * (ABNORMAL) CBC auto differential (05/06/2025 5:33 AM EDT) WBC 6.8 4 - 11 x10E9/L 05/06/2025 6:25 AM EDT [facility] RBC Count 2.95(L) 3.8 - 5.2 X10E12/L 05/06/2025 6:25 AM EDT [facility] Hemoglobin 8.7(L) 11.7 - 15.5 g/dL 05/06/2025 6:25 AM EDT [facility] Hematocrit 25.8(L) 35 - 47 % 05/06/2025 6:25 AM EDT [facility] MCV 87 80 - 100 fL 05/06/2025 6:25 AM EDT [facility] MCH 29.4 27 - 34 pg 05/06/2025 6:25 AM EDT [facility] MCHC 33.7 32 - 36 g/dL 05/06/2025 6:25 AM EDT [facility] RDW 19.2(H) 11.5 - 15 % 05/06/2025 6:25 AM EDT [facility] Platelet Count 262 150 - 450 X10E9/L 05/06/2025 6:25 AM EDT [facility] MPV 10.4 7 - 12 fL 05/06/2025 6:25 AM EDT [facility] Neutrophils % 67.7 % 05/06/2025 6:25 AM EDT [facility] Lymphocytes % 20.9 % 05/06/2025 6:25 AM EDT [facility] Monocytes % 8.3 % 05/06/2025 6:25 AM EDT [facility] Eosinophils % 2.2 % 05/06/2025 6:25 AM EDT [facility] Basophils % 0.9 % 05/06/2025 6:25 AM EDT [facility] Neutrophils Absolute (A) 4.6 1.5 - 6.6 10*3/uL 05/06/2025 6:25 AM EDT [facility] Lymphocytes Absolute 1.4 1.0 - 3.5 10*3/uL 05/06/2025 6:25 AM EDT [facility] Monocytes Absolute 0.6 0.0 - 0.9 10*3/uL 05/06/2025 6:25 AM EDT [facility] Eosinophils Absolute 0.1 0.0 - 0.4 10*3/uL 05/06/2025 6:25 AM EDT [facility] Basophils Absolute 0.1 0.0 - 0.2 10*3/uL 05/06/2025 6:25 AM EDT [facility] Differential Type AUTOMATED DIFFERENTIAL 05/06/2025 6:25 AM EDT [facility] Blood Venous blood / Unknown Venipuncture / Unknown 05/06/2025 5:33 AM EDT 05/06/2025 6:06 AM EDT us [facility] [employer] [facility] BLOOD ORDERABLES Fin al Result [facility] [address] [place] [address], [place] * Magnesium (05/06/2025 5:33 AM EDT) MAGNESIUM 2.2 1.8 - 2.6 mg/dL 05/06/2025 6:32 AM EDT [facility] Blood Venous blood / Unknown Venipuncture / Unknown 05/06/2025 5:33 AM EDT 05/06/2025 6:06 AM EDT us [facility]igi [facility] [employer] BLOOD ORDERABLES Fin al Result [facility] [address] [place] [address], * (ABNORMAL) Comprehensive metabolic panel (05/06/2025 5:33 AM EDT) SODIUM 133(L) 134 - 146 mmol/L 05/06/2025 6:32 AM EDT [facility] POTASSIUM 4.3 3.5 - 5.0 mmol/L 05/06/2025 6:32 AM EDT [facility] CHLORIDE 102 98 - 109 mmol/L 05/06/2025 6:32 AM EDT [facility] CARBON DIOXIDE 22 22 - 32 mmol/L 05/06/2025 6:32 AM EDT [facility] ANION GAP 9 5 - 15 mmol/L 05/06/2025 6:32 AM EDT [facility] BLOOD UREA NITROGEN 55(H) 5 - 27 mg/dL 05/06/2025 6:32 AM EDT [facility] CREATININE 1.81(H) 0.40 - 1.00 mg/dL 05/06/2025 6:32 AM EDT [facility] Comment:METHOD TRACEABLE TO IDMS STANDARD GLUCOSE 87 65 - 99 mg/dL 05/06/2025 6:32 AM EDT [facility] CALCIUM 8.5 8.5 - 10.5 mg/dL 05/06/2025 6:32 AM EDT [facility] TOTAL PROTEIN 5.6(L) 6.0 - 8.0 g/dL 05/06/2025 6:32 AM EDT [facility] ALBUMIN 2.7(L) 3.2 - 5.3 g/dL 05/06/2025 6:32 AM EDT [facility] ALKALINE PHOSPHATASE 120 39 - 130 U/L 05/06/2025 6:32 AM EDT [facility] AST 202(H) <=41 U/L 05/06/2025 6:32 AM EDT [facility] ALT 140(H) <=31 U/L 05/06/2025 6:32 AM EDT [facility] BILIRUBIN,TOTAL 0.7 0.3 - 1.2 mg/dL 05/06/2025 6:32 AM EDT [facility] EGFR Non-Race Dependent 28(L) >=60 ml/min/1.7 3sq.m 05/06/2025 6:32 AM EDT [facility] Comment: eGFR not reported due to non-numeric value for Creatinine. Reported eGFR is based on the CKD-EPI 2020 equation that does not use a race coefficient. Blood Venous blood / Unknown Venipuncture / Unknown 05/06/2025 5:33 AM EDT 05/06/2025 6:06 AM EDT us [facility] [employer] LAB BLOOD ORDERABLES Fin al Result Performing Organization Address City/State/[facility] de Phone Number [facility] [address] [place] [address], [place] * Light Blue Top (05/06/2025 5:32 AM EDT) Extra Tube Auto Resulted 05/06/2025 7:01 AM EDT [facility] Blood Venous blood / Unknown 05/06/2025 5:32 AM EDT 05/06/2025 6:11 AM EDT us Laina Rome MD LAB BLOOD ORDERABLES Final Result [address] [place] [address], [place] * (ABNORMAL) Hemoglobin and hematocrit, blood (05/05/2025 9:50 PM EDT) Hemoglobin 9.0(L) 11.7 - 15.5 g/dL 05/05/2025 9:58 PM EDT [facility] Hematocrit 27.0(L) 35 - 47 % 05/05/2025 9:58 PM EDT [facility] Blood Venous blood / Unknown Venipuncture / Unknown 05/05/2025 9:50 PM EDT 05/05/2025 9:54 PM EDT us Luigi Reese [employer]ENT[employer]ATING [employer] LAB BLOOD ORDERABLES Fin al Result Performing Organization Address [facility] Co de Phone Number [address] [place] [address], [place] * (ABNORMAL) Bedside Glucose *Place/Obtain serum glucose if >500 per glucometer. (05/05/2025 8:52 PM EDT) Bedside Glucose (POC) 159(H) 65 - 99 mg/dL 05/05/2025 8:57 PM EDT [facility] arterial/capilla ry 05/05/2025 8:52 PM EDT 05/05/2025 8:57 PM EDT us Laina Rome MD POINT OF CARE TEST ORDERAB LES Final Result Performing Organization Address City/[facility] Co de Phone Number [address] [place] [address], [place] * Potassium (05/05/2025 5:07 PM EDT) POTASSIUM 4.8 3.5 - 5.0 mmol/L 05/05/2025 6:07 PM EDT [facility] Blood Venous blood / Unknown Venipuncture / Unknown 05/05/2025 5:07 PM EDT 05/05/2025 5:21 PM EDT us Bethanie Marquez [employer]ATING [employer] LAB BLOOD ORDERABLES Sadaf l Result Performing Organization Address City/[facility] Co de Phone Number [address] [place] [address], * (ABNORMAL) Bedside Glucose *Place/Obtain serum glucose if >500 per glucometer. (05/05/2025 4:53 PM EDT) Bedside Glucose (POC) 169(H) 65 - 99 mg/dL 05/05/2025 4:58 PM EDT [facility] arterial/capilla ry 05/05/2025 4:53 PM EDT 05/05/2025 4:58 PM EDT us Laina Rome MD POINT OF CARE TEST ORDERAB LES Final Result Performing Organization Address [facility] Co de Phone Number [address] 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 05/13/2025 6:28 PM EDT [facility] at 1615 EDT Addendum Immunostaining for HER2/kanika is negative (1+) (only rare tumor cells were available for immunostain). 05/13/2025 6:28 PM EDT [facility] Addendum electronically signed by AZALIA LAM MD on 05/13/2025 at 1827 EDT Gross Description Received in formalin labeled PATRIZIA, biopsy of stomach body necrotic mass are 2 hopkins bits of soft tissue, each 0.2 cm in greatest dimension. Filtered and submitted in a single cassette. (1, ns, [id number], m7) MG 05/13/2025 6:28 PM EDT [facility] Embedded Images 05/13/2025 6:28 PM EDT [facility] Tissue Stomach structure / Unknown 05/05/2025 2:11 PM EDT 05/05/2025 4:10 PM EDT Comment:Pre-op diagnosis: anemia Kelvin Myles MD PATHOLOGY/CYTOLOGY ORDERAB LES Edited Result - Final [facility] [address] [place] [address], [place] [phone] * EGD Report (05/05/2025 2:01 PM EDT) [...] ve Non-Reacti ve 05/05/2025 6:26 PM EDT [facility] Blood Venous blood / Unknown Venipuncture / Unknown 05/05/2025 1:03 PM EDT 05/05/2025 1:08 PM EDT Narrative [facility] - 05/05/2025 6:26 PM EDT [...] HIV test results or diagnoses. Bethanie Marquez HEATING AND VENTILATING [facility] LAB BLOOD ORDERABLES Sadaf l Result Performing Organization Address City/[facility]/ZIP Co de Phone Number [facility] [address] [place] [address], * CMV DNA Detect/Quant, P (05/05/2025 1:03 PM EDT) Pathologist [facility] CMV DNA DETECT QUANT Undetected Undetected IU/mL 05/06/2025 3:09 PM EDT [facility] [employer] Comment: Result in log IU/mL is Undetected. ADDITIONAL INFORMATION The quantification range of this assay is 35 to 10,000,000 IU/mL (1.54 log to 7.00 log IU/mL). Testing was performed using the napoleon CMV test ([employer] Test Performed by: [facility] - [address] [address] Senior Cyber Intelligence Analyst: Elie Rodriguez Ph.D.; CLIA# [id number] Blood Venous blood / Unknown Venipuncture / Unknown 05/05/2025 1:03 PM EDT 05/05/2025 1:08 PM EDT Bethanie Marquez [employer] [facility] LAB BLOOD ORDERABLES Sadaf l Result [facility] [employer] [address] [place] [address], * Chase-Cain virus DNA, Detect/Quant, P (05/05/2025 1:03 PM EDT) [facility] EBV DNA DETECT/QUANT Undetected Undetected IU/mL 05/06/2025 8:49 PM EDT [facility] Comment: Result in log IU/mL is Undetected. ADDITIONAL INFORMATION The quantification range of this assay is 35 to 100,000,000 IU/mL (1.54 log to 8.00 log IU/mL). Testing was performed using the napoleon EBV test ([employer] Test Performed by: [place] [address] [place] [address] Senior Cyber Intelligence Analyst: Elie Rodriguez Ph.D.; CLIA# [id number] Blood Venous blood / Unknown Venipuncture / Unknown 05/05/2025 1:03 PM EDT 05/05/2025 1:08 PM EDT Bethanie Marquez [facility] LAB BLOOD ORDERABLES Sadaf sharp Result [facility] [address] [place] [address], * (ABNORMAL) Hemoglobin and hematocrit, blood (05/05/2025 1:03 PM EDT) [facility] Hemoglobin 9.2(L) 11.7 - 15.5 g/dL 05/05/2025 1:34 PM EDT [facility] Hematocrit 27.2(L) 35 - 47 % 05/05/2025 1:34 PM EDT [facility] Blood Venous blood / Unknown Venipuncture / Unknown 05/05/2025 1:03 PM EDT 05/05/2025 1:08 PM EDT Luigi Reese [facility] LAB BLOOD ORDERABLES Fin al Result [facility] [address] [place] [address], [place] * EGD (05/05/2025 12:18 PM EDT) 05/05/2025 12:1 8 PM EDT Narrative PM CARDIOVASCULAR - 05/05/2025 2:19 PM EDT [facility] Patient Name: Irma Caceres Procedure Date No Time: 05/05/2025 CSN : [id number] Date of : 1945 Admit Type: Outpatient Age: 80 Room: [place] [address] Gender: Female Note Status: Finalized Attending MD: Kelvin Myles , , Procedure: Upper GI endoscopy Indications: Iron deficiency anemia Providers: Kelvin Myles Medicines: Monitored Anesthesia Care Complications: No immediate complications. Procedure: After obtaining informed consent, the endoscope was passed under direct vision. Throughout the procedure, the patient's blood pressure, pulse, and oxygen saturations were monitored continuously. The OLYMPUS GIF-HQ190 #[id number] ADULT GASTROSCOPE was introduced through the mouth, [...] GI bleed. Procedure Code(s): --- Professional --- 08248, Esophagogastroduodenoscopy, flexible, transoral; with biopsy, single or multiple Diagnosis Code(s): --- Professional --- K31.7, Polyp of stomach and duodenum CPT copyright 2022 [employer] [place] [employer]. All rights reserved. The codes documented in this report are preliminary and upon registered nurse nursery review may be revised to meet current compliance requirements. MD Kelvin Gaitan, 05/05/2025 2:18:29 PM This report has been signed electronically.Kelvin Myles Number of Addenda: 0 Note Initiated On: 05/05/2025 12:18 PM Procedure Note Kelvin Myles MD - 05/05/2025 [facility] Patient Name: Irma Caceres Procedure Date No Time: 05/05/2025 CSN : [id number] Date of : 1945 Admit Type: Outpatient Age: 80 Room: [place] [address] Gender: Female Note Status: Finalized Attending MD: Kelvin Myles , , Procedure: Upper GI endoscopy Indications: Iron deficiency anemia Providers: Kelvin Myles Medicines: Monitored Anesthesia Care Complications: No immediate complications. Procedure: After obtaining informed consent, the endoscope was passed under direct vision. Throughout theprocedure, the patient's blood pressure, pulse, and oxygen saturations were monitored continuously. The[employer]YMPUS GIF-HQ190 #[id number] ADULT GASTROSCOPE was introduced through the mouth, [...] GI bleed. Procedure Code(s): --- Professional --- 96553, Esophagogastroduodenoscopy, flexible, transoral; with biopsy, single or multiple Diagnosis Code(s): --- Professional --- K31.7, Polyp of stomach and duodenum CPT copyright 2022 [employer] [place] [employer]. All rights reserved. The codes documented in this report are preliminary and upon registered nurse nursery reviewmay be revised to meet current compliance requirements. MD Kelvin Gaitan, 05/05/2025 2:18:29 PM This report has been signed electronically.Kelvin Myles Number of Addenda: 0 Note Initiated On: 05/05/2025 12:18 PM Kelvin Myles MD GI PROCEDURE ORDERABLES Fi nal Result PM CARDIOVASCULAR * (ABNORMAL) Bedside Glucose *Place/Obtain serum glucose if >500 per glucometer. (05/05/2025 11:56AM EDT) Bedside Glucose (POC) 148(H) 65 - 99 mg/dL 05/05/2025 12:07 PM EDT [facility] arterial/capilla ry 05/05/2025 11:56 AM EDT 05/05/2025 12:07 PM EDT Laina Rome MD POINT OF CARE TEST ORDERAB LES Final Result [facility] [address] [place] [address], [place] * Ultrasound abdomen limited (05/05/2025 11:51 [...] Duke Bob MD on 05/05/2025 1:44 PM us Bethanie Marquez [employer]ATING [employer] VENTILATING D[employer]OR[employer] G US ORDERABLES Final R esult * (ABNORMAL) Procalcitonin (05/05/2025 6:01 AM EDT) PROCALCITONIN 4.03(H) <0.05 ng/mL 05/05/2025 2:10 PM EDT [facility] Blood Venous blood / Unknown Venipuncture / Unknown 05/05/2025 6:01 AM EDT 05/05/2025 6:07 AM EDT Narrative [facility] - 05/05/2025 2:10 PM EDT <0.50 ng/mL - Low risk of severe sepsis and/or septic shock. <2.00 ng/mL - Recommend retesting within 6-24 hours. >2.00 ng/mL - High risk of sepsis and/or septic shock. us Bethanie Jimmy [employer]ATING AND V[employer]ATING [employer] LAB BLOOD ORDERABLES Sadaf sharp Result [facility] [address] [place] [address], [place] * (ABNORMAL) CBC auto differential (05/05/2025 6:01 AM EDT) WBC 7.3 4 - 11 x10E9/L 05/05/2025 6:11 AM EDT [facility] RBC Count 3.14(L) 3.8 - 5.2 X10E12/L 05/05/2025 6:11 AM EDT [facility] Hemoglobin 9.2(L) 11.7 - 15.5 g/dL 05/05/2025 6:11 AM EDT [facility] Hematocrit 27.3(L) 35 - 47 % 05/05/2025 6:11 AM EDT [facility] MCV 87 80 - 100 fL 05/05/2025 6:11 AM EDT [facility] MCH 29.2 27 - 34 pg 05/05/2025 6:11 AM EDT [facility] MCHC 33.6 32 - 36 g/dL 05/05/2025 6:11 AM EDT [facility] RDW 19.1(H) 11.5 - 15 % 05/05/2025 6:11 AM EDT [facility] Platelet Count 216 150 - 450 X10E9/L 05/05/2025 6:11 AM EDT [facility] MPV 9.9 7 - 12 fL 05/05/2025 6:11 AM EDT [facility] Neutrophils % 68.8 % 05/05/2025 6:11 AM EDT [facility] Lymphocytes % 19.5 % 05/05/2025 6:11 AM EDT [facility] Monocytes % 8.1 % 05/05/2025 6:11 AM EDT [facility] Eosinophils % 2.5 % 05/05/2025 6:11 AM EDT [facility] Basophils % 1.1 % 05/05/2025 6:11 AM EDT [facility] Neutrophils Absolute (A) 5.0 1.5 - 6.6 10*3/uL 05/05/2025 6:11 AM EDT [facility] Lymphocytes Absolute 1.4 1.0 - 3.5 10*3/uL 05/05/2025 6:11 AM EDT [facility] Monocytes Absolute 0.6 0.0 - 0.9 10*3/uL 05/05/2025 6:11 AM EDT [facility] Eosinophils Absolute 0.2 0.0 - 0.4 10*3/uL 05/05/2025 6:11 AM EDT [facility] Basophils Absolute 0.1 0.0 - 0.2 10*3/uL 05/05/2025 6:11 AM EDT [facility] Differential Type AUTOMATED DIFFERENTIAL 05/05/2025 6:11 AM EDT [facility] Blood Venous blood / Unknown Venipuncture / Unknown 05/05/2025 6:01 AM EDT 05/05/2025 6:07 AM EDT us Luigi Reese [employer]ATING [employer] V[employer]ATING [employer] LAB BLOOD ORDERABLES Fin al Result [facility] [address] [place] [address], * Magnesium (05/05/2025 6:01 AM EDT) MAGNESIUM 2.5 1.8 - 2.6 mg/dL 05/05/2025 6:32 AM EDT [facility] Blood Venous blood / Unknown Venipuncture / Unknown 05/05/2025 6:01 AM EDT 05/05/2025 6:07 AM EDT us Luigi Reese HEATING [employer]ATING [employer] LAB BLOOD ORDERABLES Fin al Result [facility] [address] [place] [address], [place] * (ABNORMAL) Comprehensive metabolic panel (05/05/2025 6:01 AM EDT) SODIUM 130(L) 134 - 146 mmol/L 05/05/2025 6:32 AM EDT [facility] POTASSIUM 5.2(H) 3.5 - 5.0 mmol/L 05/05/2025 6:32 AM EDT [facility] CHLORIDE 100 98 - 109 mmol/L 05/05/2025 6:32 AM EDT [facility] CARBON DIOXIDE 21(L) 22 - 32 mmol/L 05/05/2025 6:32 AM EDT [facility] ANION GAP 9 5 - 15 mmol/L 05/05/2025 6:32 AM EDT [facility] BLOOD UREA NITROGEN 70(H) 5 - 27 mg/dL 05/05/2025 6:32 AM EDT [facility] CREATININE 2.13(H) 0.40 - 1.00 mg/dL 05/05/2025 6:32 AM EDT [facility] Comment:METHOD TRACEABLE TO IDMS STANDARD GLUCOSE 144(H) 65 - 99 mg/dL 05/05/2025 6:32 AM EDT [facility] CALCIUM 8.8 8.5 - 10.5 mg/dL 05/05/2025 6:32 AM EDT [facility] TOTAL PROTEIN 6.0 6.0 - 8.0 g/dL 05/05/2025 6:32 AM EDT [facility] ALBUMIN 3.1(L) 3.2 - 5.3 g/dL 05/05/2025 6:32 AM EDT [facility] ALKALINE PHOSPHATASE 133(H) 39 - 130 U/L 05/05/2025 6:32 AM EDT [facility] AST 235(H) <=41 U/L 05/05/2025 6:32 AM EDT [facility] ALT 163(H) <=31 U/L 05/05/2025 6:32 AM EDT [facility] BILIRUBIN,TOTAL 0.7 0.3 - 1.2 mg/dL 05/05/2025 6:32 AM EDT [facility] EGFR Non-Race Dependent 23(L) >=60 ml/min/1.7 3sq.m 05/05/2025 6:32 AM EDT [facility] Comment: eGFR not reported due to non-numeric value for Creatinine. Reported eGFR is based on the CKD-EPI 2020 equation that does not use a race coefficient. Blood Venous blood / Unknown Venipuncture / Unknown 05/05/2025 6:01 AM EDT 05/05/2025 6:07 AM EDT us Luigi Reese HEATING AND VENTILATING [employer] LAB BLOOD ORDERABLES Fin al Result [address] [place] [address], [place] * Light Blue Top (05/05/2025 6:00 AM EDT) Extra Tube Auto Resulted 05/05/2025 7:01 AM EDT [facility] Blood Venous blood / Unknown 05/05/2025 6:00 AM EDT 05/05/2025 6:09 AM EDT us Laina Rome MD LAB BLOOD ORDERABLES Final Result [address] [address], [place] * (ABNORMAL) Magnesium (05/04/2025 9:28 PM EDT) MAGNESIUM 2.8(H) 1.8 - 2.6 mg/dL 05/04/2025 9:51 PM EDT [facility] Blood Venous blood / Unknown Venipuncture / Unknown 05/04/2025 9:28 PM EDT 05/04/2025 9:30 PM EDT us Bethanie Marquez HEATING [employer] VENTILATING [employer] LAB BLOOD ORDERABLES Sadaf l Result Performing Organization Address [facility]/ZIP Co de Phone Number [address] [place] [address], [place] * (ABNORMAL) Hemoglobin and hematocrit, blood (05/04/2025 9:28 PM EDT) Hemoglobin 8.8(L) 11.7 - 15.5 g/dL 05/04/2025 9:36 PM EDT [facility] Hematocrit 26.4(L) 35 - 47 % 05/04/2025 9:36 PM EDT [facility] Blood Venous blood / Unknown Venipuncture / Unknown 05/04/2025 9:28 PM EDT 05/04/2025 9:30 PM EDT us Luigi Reese [employer]ATING [employer]ATING [employer] LAB BLOOD ORDERABLES Fin al Result Performing Organization Address [facility] Co de Phone Number [address] [place] [address], [place] * (ABNORMAL) Bedside Glucose *Place/Obtain serum glucose if >500 per glucometer. (05/04/2025 8:38 PM EDT) Bedside Glucose (POC) 177(H) 65 - 99 mg/dL 05/04/2025 8:39 PM EDT [facility] arterial/capilla ry 05/04/2025 8:38 PM EDT 05/04/2025 8:39 PM EDT us Laina Rome MD POINT OF CARE TEST ORDERAB LES Final Result Performing Organization Address [facility]/ZIP Co de Phone Number [address] [place] [address], [place] * (ABNORMAL) Bedside Glucose *Place/Obtain serum glucose if >500 per glucometer. (05/04/2025 4:35 PM EDT) Bedside Glucose (POC) 208(H) 65 - 99 mg/dL 05/04/2025 4:50 PM EDT [facility] arterial/capilla ry 05/04/2025 4:35 PM EDT 05/04/2025 4:50 PM EDT us Laina Rome MD POINT OF CARE TEST ORDERAB LES Final Result Performing Organization Address [facility] Co de Phone Number [address] [place] [address], [place] * Magnesium (05/04/2025 1:13 PM EDT) MAGNESIUM 1.8 1.8 - 2.6 mg/dL 05/04/2025 1:40 PM EDT [facility] Blood Venous blood / Unknown Venipuncture / Unknown 05/04/2025 1:13 PM EDT 05/04/2025 1:18 PM EDT us Bethanie Marquez [employer]ATING [employer] V[employer]ATING [employer] LAB BLOOD ORDERABLES Sadaf l Result Performing Organization Address City/[facility]/ZIP Co de Phone Number [address] [place] [address], [place] * (ABNORMAL) Hemoglobin and hematocrit, blood (05/04/2025 1:13 PM EDT) Hemoglobin 9.1(L) 11.7 - 15.5 g/dL 05/04/2025 1:28 PM EDT [facility] Hematocrit 27.8(L) 35 - 47 % 05/04/2025 1:28 PM EDT [facility] Blood Venous blood / Unknown Venipuncture / Unknown 05/04/2025 1:13 PM EDT 05/04/2025 1:18 PM EDT us Luigi Reese [employer] LAB BLOOD ORDERABLES Fin al Result Performing Organization Address City/[facility]/ZIP Co de Phone Number [address] [place] [address], [place] * (ABNORMAL) Bedside Glucose *Place/Obtain serum glucose if >500 per glucometer. (05/04/2025 11:54AM EDT) Bedside Glucose (POC) 199(H) 65 - 99 mg/dL 05/04/2025 11:59 AM EDT [facility] arterial/capilla ry 05/04/2025 11:54 AM EDT 05/04/2025 11:59 AM EDT us Jose Balderas MD POINT OF CARE TEST ORDERABLES Final Result Performing Organization Address City/[facility]/ZIP Co de Phone Number [address] [place] [address], [place] * (ABNORMAL) Procalcitonin (05/04/2025 5:37 AM EDT) PROCALCITONIN 7.42(H) <0.05 ng/mL 05/04/2025 1:39 PM EDT [facility] Blood Venous blood / Unknown Venipuncture / Unknown 05/04/2025 5:37 AM EDT 05/04/2025 6:01 AM EDT Narrative [facility] - 05/04/2025 1:39 PM EDT <0.50 ng/mL - Low risk of severe sepsis and/or septic shock. <2.00 ng/mL - Recommend retesting within 6-24 hours. >2.00 ng/mL - High risk of sepsis and/or septic shock. us Bethanie Marquez [employer] LAB BLOOD ORDERABLES Sadaf l Result [facility] [address] [place] [address], [place] * (ABNORMAL) CBC auto differential (05/04/2025 5:37 AM EDT) WBC 6.8 4 - 11 x10E9/L 05/04/2025 6:06 AM EDT [facility] RBC Count 2.61(L) 3.8 - 5.2 X10E12/L 05/04/2025 6:06 AM EDT [facility] Hemoglobin 7.6(L) 11.7 - 15.5 g/dL 05/04/2025 6:06 AM EDT [facility] Hematocrit 22.5(L) 35 - 47 % 05/04/2025 6:06 AM EDT [facility] MCV 86 80 - 100 fL 05/04/2025 6:06 AM EDT [facility] MCH 29.3 27 - 34 pg 05/04/2025 6:06 AM EDT [facility] MCHC 33.9 32 - 36 g/dL 05/04/2025 6:06 AM EDT [facility] RDW 18.8(H) 11.5 - 15 % 05/04/2025 6:06 AM EDT [facility] Platelet Count 161 150 - 450 X10E9/L 05/04/2025 6:06 AM EDT [facility] MPV 10.0 7 - 12 fL 05/04/2025 6:06 AM EDT [facility] Neutrophils % 67.0 % 05/04/2025 6:06 AM EDT [facility] Lymphocytes % 23.4 % 05/04/2025 6:06 AM EDT [facility] Monocytes % 6.7 % 05/04/2025 6:06 AM EDT [facility] Eosinophils % 2.3 % 05/04/2025 6:06 AM EDT [facility] Basophils % 0.6 % 05/04/2025 6:06 AM EDT [facility] Neutrophils Absolute (A) 4.5 1.5 - 6.6 10*3/uL 05/04/2025 6:06 AM EDT [facility] Lymphocytes Absolute 1.6 1.0 - 3.5 10*3/uL 05/04/2025 6:06 AM EDT [facility] Monocytes Absolute 0.5 0.0 - 0.9 10*3/uL 05/04/2025 6:06 AM EDT [facility] Eosinophils Absolute 0.2 0.0 - 0.4 10*3/uL 05/04/2025 6:06 AM EDT [facility] Basophils Absolute 0.0 0.0 - 0.2 10*3/uL 05/04/2025 6:06 AM EDT [facility] Differential Type AUTOMATED DIFFERENTIAL 05/04/2025 6:06 AM EDT [facility] Blood Venous blood / Unknown Venipuncture / Unknown 05/04/2025 5:37 AM EDT 05/04/2025 6:01 AM EDT us Luigi Reese [employer] LAB BLOOD ORDERABLES Fin al Result [facility] [address] [place] [address], * Magnesium (05/04/2025 5:37 AM EDT) MAGNESIUM 1.8 1.8 - 2.6 mg/dL 05/04/2025 6:27 AM EDT [facility] Blood Venous blood / Unknown Venipuncture / Unknown 05/04/2025 5:37 AM EDT 05/04/2025 6:01 AM EDT us Luigi Floodzer [employer]ATING [employer] LAB BLOOD ORDERABLES Fin al Result [facility] [address] [place] [address], * (ABNORMAL) Comprehensive metabolic panel (05/04/2025 5:37 AM EDT) SODIUM 131(L) 134 - 146 mmol/L 05/04/2025 6:27 AM EDT [facility] POTASSIUM 4.4 3.5 - 5.0 mmol/L 05/04/2025 6:27 AM EDT [facility] CHLORIDE 102 98 - 109 mmol/L 05/04/2025 6:27 AM EDT [facility] CARBON DIOXIDE 22 22 - 32 mmol/L 05/04/2025 6:27 AM EDT [facility] ANION GAP 7 5 - 15 mmol/L 05/04/2025 6:27 AM EDT [facility] BLOOD UREA NITROGEN 82(H) 5 - 27 mg/dL 05/04/2025 6:27 AM EDT [facility] CREATININE 2.72(H) 0.40 - 1.00 mg/dL 05/04/2025 6:27 AM EDT [facility] Comment:METHOD TRACEABLE TO IDMS STANDARD GLUCOSE 82 65 - 99 mg/dL 05/04/2025 6:27 AM EDT [facility] CALCIUM 8.2(L) 8.5 - 10.5 mg/dL 05/04/2025 6:27 AM EDT [facility] TOTAL PROTEIN 4.6(L) 6.0 - 8.0 g/dL 05/04/2025 6:27 AM EDT [facility] ALBUMIN 2.3(L) 3.2 - 5.3 g/dL 05/04/2025 6:27 AM EDT [facility] ALKALINE PHOSPHATASE 110 39 - 130 U/L 05/04/2025 6:27 AM EDT [facility] AST 268(H) <=41 U/L 05/04/2025 6:27 AM EDT [facility] ALT 147(H) <=31 U/L 05/04/2025 6:27 AM EDT [facility] BILIRUBIN,TOTAL 0.9 0.3 - 1.2 mg/dL 05/04/2025 6:27 AM EDT [facility] EGFR Non-Race Dependent 17(L) >=60 ml/min/1.7 3sq.m 05/04/2025 6:27 AM EDT [facility] Comment: eGFR not reported due to non-numeric value for Creatinine. Reported eGFR is based on the CKD-EPI 2020 equation that does not use a race coefficient. Blood Venous blood / Unknown Venipuncture / Unknown 05/04/2025 5:37 AM EDT 05/04/2025 6:01 AM EDT Luigi D Aleenazer [employer] [facility] BLOOD ORDERABLES Fin al Result Performing Organization Address [facility]/ZIP Co de Phone Number [address] [place] [address], [place] * (ABNORMAL) Hemoglobin and hematocrit, blood (05/03/2025 9:30 PM EDT) [facility] Hemoglobin 8.2(L) 11.7 - 15.5 g/dL 05/03/2025 9:58 PM EDT [facility] Hematocrit 24.3(L) 35 - 47 % 05/03/2025 9:58 PM EDT [facility] Blood Venous blood / Unknown Venipuncture / Unknown 05/03/2025 9:30 PM EDT 05/03/2025 9:54 PM EDT us Luigi D Krotzer [employer] LAB BLOOD ORDERABLES Fin al Result [address] [place] [address], [place] * (ABNORMAL) Bedside Glucose *Place/Obtain serum glucose if >500 per glucometer. (05/03/2025 8:23 PM EDT) Bedside Glucose (POC) 100(H) 65 - 99 mg/dL 05/03/2025 8:41 PM EDT [facility] arterial/capilla ry 05/03/2025 8:23 PM EDT 05/03/2025 8:41 PM EDT us Jose Balderas MD POINT OF CARE TEST ORDERABLES Final Result [facility] [address] [place] [address], * (ABNORMAL) Vaginitis Panel PCR (05/03/2025 6:27 PM EDT) BACT. VAGINOSIS DNA Not Detected Not Detected 05/04/2025 12:06 PM EDT [facility] Comment:Qualitative results are reported based on detection and quantitation of targeted organism markers which include: Lactobacillus spp. (L. crispatus and L. jensenii), Gardnerella vaginalis, Atopobium vaginae, Bacterial Vaginosis Associated Bacteria-2 (BVAB-2) and Megasphaera-1. GAIL SPECIES DNA Not Detected Not Detected 05/04/2025 12:06 PM EDT [facility] Comment:Gail species not detected include: C. albicans, C. tropicalis, C. parapsilosis or C. dubliniensis. GAIL KRUSEI DNA Not Detected Not Detected 05/04/2025 12:06 PM EDT [facility] Comment:No Gail krusei de tected. GAIL GLABRATA DNA Detected(A) Not Detected 05/04/2025 12:06 PM EDT [facility] Comment:Gail glabrata det ected. Literature studies show between 8-20% Fluconazole resistance for Gail glabrata. TRICHOMONAS VAG DNA Not Detected Not Detected 05/04/2025 12:06 PM EDT [facility] Comment: No Trichomonas vaginalis detected. BD MAX Vaginal Panel has not been evaluated for patients under 18 years old. Results for these patients should be reviewed and assessed in accordance with clinical presentation to determine patient diagnosis. Swab Vaginal structure / Unknown 05/03/2025 6:27 PM EDT 05/03/2025 6:44 PM EDT us Marzena Jay MD MICROBIOLOGY - GENERAL ORDERAB LES Final Result [facility] [address] [place] [address], [place] [phone] * (ABNORMAL) Bedside Glucose *Place/Obtain serum glucose if >500 per glucometer. (05/03/2025 4:02 PM EDT) Bedside Glucose (POC) 147(H) 65 - 99 mg/dL 05/03/2025 4:04 PM EDT [facility] arterial/capilla ry 05/03/2025 4:02 PM EDT 05/03/2025 4:04 PM EDT us Jose Balderas MD POINT OF CARE TEST ORDERABLES Final Result Performing Organization Address [facility]/ZIP Co de Phone Number [facility] [address] [place] [address], [place] * (ABNORMAL) Hemoglobin and hematocrit, blood (05/03/2025 3:34 PM EDT) Hemoglobin 8.0(L) 11.7 - 15.5 g/dL 05/03/2025 4:00 PM EDT [facility] Hematocrit 23.5(L) 35 - 47 % 05/03/2025 4:00 PM EDT [facility] Blood Venous blood / Unknown Venipuncture / Unknown 05/03/2025 3:34 PM EDT 05/03/2025 3:37 PM EDT us Bethanie Marquez [employer] LAB BLOOD ORDERABLES Sadaf l Result [facility] [address] [place] [address], [place] * Transfuse RBC:1 Unit (05/03/2025 2:19 PM EDT) us Bethanie Marquez [employer] BLOOD TRANSFUSION ORDERAB LES Final Result * Transfuse RBC:1 Unit (05/03/2025 2:19 PM EDT) us Bethanie Marquez [employer] BLOOD TRANSFUSION ORDERAB LES Final Result * Osmolality, urine (05/03/2025 12:40 PM EDT) URINE OSMOLALITY 328 300 - 1,300 mOsm/kg H2 05/03/2025 11:10 PM EDT [facility] Urine (Urine, Indwelling Catheter) 05/03/2025 12:40 PM EDT 05/03/2025 12:56 PM EDT Vandana John [employer] URINE ORDERABLES Final Res ult [facility] [address] [place] [address], [place] [phone] * Sodium, urine, random (05/03/2025 12:40 PM EDT) URINE SODIUM,RANDOM 50 mmol/L 05/03/2025 10:41 PM EDT [facility] Urine (Urine, Indwelling Catheter) 05/03/2025 12:40 PM EDT 05/03/2025 12:56 PM EDT Vandana John [employer] URINE ORDERABLES Final Res ult [facility] [address] [place] [address], [place] [phone] * (ABNORMAL) Urinalysis (05/03/2025 12:40 PM EDT) COLOR Yellow Yellow 05/03/2025 1:15 PM EDT [facility] TURBIDITY Clear Clear 05/03/2025 1:15 PM EDT [facility] SPECIFIC GRAVITY 1.010 1.003 - 1.035 05/03/2025 1:15 PM EDT [facility] NITRITE Negative Negative 05/03/2025 1:15 PM EDT [facility] PH,URINE 6.0 5.0 - 8.5 05/03/2025 1:15 PM EDT [facility] LEUKOCYTE ESTERASE Negative Negative 05/03/2025 1:15 PM EDT [facility] PROTEIN Trace(A) Negative 05/03/2025 1:15 PM EDT [facility] KETONES (URINE) Negative Negative 1:15 PM EDT [facility] UROBILINOGEN 0.2 eu/dL 0.2 eu/dL, 1.0 eu/dL 05/03/2025 1:15 PM EDT [facility] BILIRUBIN (URINE) Negative Negative 05/03/2025 1:15 PM EDT [facility] BLOOD/HGB Moderate(A) Negative 05/03/2025 1:15 PM EDT [facility] MUCOUS Present(A) None 05/03/2025 1:15 PM EDT [facility] R.B.CELLS 4 0 - 5 05/03/2025 1:15 PM EDT [facility] W.B.CELLS 8(H) 0 - 5 05/03/2025 1:15 PM EDT [facility] GLUCOSE (URINE) Negative Negative, 250 mg/dL 05/03/2025 1:15 PM EDT [facility] Urine (Urine, Indwelling Catheter) 05/03/2025 12:40 PM EDT 05/03/2025 12:56 PM EDT us Bethanie Marquez [employer] URINE ORDERABLES Final Re sult [facility] [address] [place] [address], [place] * Ultrasound pelvic complete (05/03/2025 12:30 [...] on 05/03/2025 12:40 PM us Bethanie Marquez [employer] IMG US ORDERABLES Final R esult * Bedside Glucose *Place/Obtain serum glucose if >500 per glucometer. (05/03/2025 11:59 AM EDT) Bedside Glucose (POC) 77 65 - 99 mg/dL 05/03/2025 12:01 PM EDT [facility] arterial/capilla ry 05/03/2025 11:59 AM EDT 05/03/2025 12:01 PM EDT us Jose Balderas MD POINT OF CARE TEST ORDERABLES Final Result [address] [place] [address], [place] * Crossmatch RBC:Number of Units: 1 (05/03/2025 9:19 AM EDT) Blood component type [id number] [facility] Unit number [id number] [facility] ABO O [facility] Unit RH POS [facility] Crossmatch Compatible [facility] Status of unit TRANSFUSED [facility] Expiration Date [id number] [facility] BB Type Barcode 5100 [facility] Blood Venous blood / Unknown 05/03/2025 9:19 AM EDT 05/03/2025 9:19 AM EDT us Bethanie Marquez APRNPETER [facility] BLOOD BANK PRODUCT ORDERA BLES Edited Result - Final Performing Organization Address City/[facility]/ZIP Co de Phone Number [facility] [address] [place] [address] [place] [address], [place] * Type and screen(includes indirect nathalia) (05/03/2025 8:44 AM EDT) ABO O 05/03/2025 11:32 AM EDT [facility] RH Positive 05/03/2025 11:32 AM EDT [facility] Antibody Screen Negative 05/03/2025 11:32 AM EDT [facility] Blood Venous blood / Unknown Venipuncture / Unknown 05/03/2025 8:44 AM EDT 05/03/2025 8:46 AM EDT us Bethanie Marquez APRNPETER [facility] BLOOD BANK TEST ORDERABLE S Edited Result - Final [facility] [address] [place] [address], [place] [address] [place] [address], [place] * (ABNORMAL) Osmolality (05/03/2025 4:14 AM EDT) Pathologist [facility] OSMOLALITY 306(H) 280 - 300 mOsm/kg H2 05/03/2025 10:16 PM EDT [facility] Blood Venous blood / Unknown Venipuncture / Unknown 05/03/2025 4:14 AM EDT 05/03/2025 5:19 AM EDT [facility]ana [facility] ORDERAB[facility] Final Result [facility] [address] [place] [address], [place] [phone] * Hepatitis panel, acute (05/03/2025 4:14 AM EDT) [facility] HEPATITIS B SURF AG Non-Reacti ve Non-Reacti ve 05/03/2025 11:17 PM EDT [facility] HEPATITIS A IGM Non-Reacti ve Non-Reacti ve 05/03/2025 11:17 PM EDT [facility] HEPATITIS B CORE IGM Non-Reacti ve Non-Reacti ve 05/03/2025 11:17 PM EDT [facility] ANTI HCV W/PCR REFLX Non-Reacti ve Non-Reacti ve 05/03/2025 11:17 PM EDT [facility] Comment: If recent infection suspected, recommend repeat testing (>2 months). Newhhm-vh-rtithu ratio is <1.0. Blood Venous blood / Unknown Venipuncture / Unknown 05/03/2025 4:14 AM EDT 05/03/2025 5:19 AM EDT Vandana John APRNPETER [facility] LAB BLOOD ORDERABLES Final Result [facility] [address] [place] [address], [place] [phone] * (ABNORMAL) C-reactive protein (05/03/2025 4:14 AM EDT) [facility] C REACTIVE PROTEIN 9.7(H) <=0.7 mg/dL 05/03/2025 12:45 PM EDT [facility] Blood Venous blood / Unknown Venipuncture / Unknown 05/03/2025 4:14 AM EDT 05/03/2025 5:19 AM EDT [place] [facility] LAB BLOOD ORDERABLES Final Result Performing Organization Address [facility] de Phone Number [address] [place] [address], [place] * (ABNORMAL) Procalcitonin (05/03/2025 4:14 AM EDT) [facility] PROCALCITONIN 9.34(H) <0.05 ng/mL 05/03/2025 1:42 PM EDT [facility] Blood Venous blood / Unknown Venipuncture / Unknown 05/03/2025 4:14 AM EDT 05/03/2025 5:19 AM EDT Narrative [facility] - 05/03/2025 1:42 PM EDT <0.50 ng/mL - Low risk of severe sepsis and/or septic shock. <2.00 ng/mL - Recommend retesting within 6-24 hours. >2.00 ng/mL - High risk of sepsis and/or septic shock. [facility] LAB BLOOD ORDERABLES Final Result Performing Organization Address [facility] de Phone Number [address] [place] [address], [place] * (ABNORMAL) CBC auto differential (05/03/2025 4:14 AM EDT) [facility] WBC 11.2(H) 4 - 11 x10E9/L 05/03/2025 5:48 AM EDT [facility] RBC Count 2.31(L) 3.8 - 5.2 X10E12/L 05/03/2025 5:48 AM EDT [facility] Hemoglobin 6.7(LL) 11.7 - 15.5 g/dL 05/03/2025 5:48 AM EDT [facility] Hematocrit 20.4(L) 35 - 47 % 05/03/2025 5:48 AM EDT [facility] MCV 88 80 - 100 fL 05/03/2025 5:48 AM EDT [facility] MCH 28.8 27 - 34 pg 05/03/2025 5:48 AM EDT [facility] MCHC 32.6 32 - 36 g/dL 05/03/2025 5:48 AM EDT [facility] RDW 19.6(H) 11.5 - 15 % 05/03/2025 5:48 AM EDT [facility] Platelet Count 195 150 - 450 X10E9/L 05/03/2025 5:48 AM EDT [facility] MPV 10.4 7 - 12 fL 05/03/2025 5:48 AM EDT [facility] Neutrophils % 77.5 % 05/03/2025 5:48 AM EDT [facility] Lymphocytes % 15.7 % 05/03/2025 5:48 AM EDT [facility] Monocytes % 6.0 % 05/03/2025 5:48 AM EDT [facility] Eosinophils % 0.3 % 05/03/2025 5:48 AM EDT [facility] Basophils % 0.5 % 05/03/2025 5:48 AM EDT [facility] Neutrophils Absolute (A) 8.7(H) 1.5 - 6.6 10*3/uL 05/03/2025 5:48 AM EDT [facility] Lymphocytes Absolute 1.8 1.0 - 3.5 10*3/uL 05/03/2025 5:48 AM EDT [facility] Monocytes Absolute 0.7 0.0 - 0.9 10*3/uL 05/03/2025 5:48 AM EDT [facility] Eosinophils Absolute 0.0 0.0 - 0.4 10*3/uL 05/03/2025 5:48 AM EDT [facility] Basophils Absolute 0.1 0.0 - 0.2 10*3/uL 05/03/2025 5:48 AM EDT [facility] Differential Type AUTOMATED DIFFERENTIAL 05/03/2025 5:48 AM EDT [facility] Blood Venous blood / Unknown Venipuncture / Unknown 05/03/2025 4:14 AM EDT 05/03/2025 5:18 AM EDT Luigi Reese [employer] LAB BLOOD ORDERABLES Fin al Result Performing Organization Address [facility]/ZIP Co de Phone Number [address] [place] [address], [place] * Magnesium (05/03/2025 4:14 AM EDT) MAGNESIUM 1.8 1.8 - 2.6 mg/dL 05/03/2025 6:07 AM EDT [facility] Blood Venous blood / Unknown Venipuncture / Unknown 05/03/2025 4:14 AM EDT 05/03/2025 5:19 AM EDT Luigi Reese [employer] LAB BLOOD ORDERABLES Fin al Result Performing Organization Address City/[facility] Co de Phone Number [address] [place] [address], [place] * (ABNORMAL) Comprehensive metabolic panel (05/03/2025 4:14 AM EDT) SODIUM 129(L) 134 - 146 mmol/L 05/03/2025 6:07 AM EDT [facility] POTASSIUM 4.4 3.5 - 5.0 mmol/L 05/03/2025 6:07 AM EDT [facility] CHLORIDE 98 98 - 109 mmol/L 05/03/2025 6:07 AM EDT [facility] CARBON DIOXIDE 22 22 - 32 mmol/L 05/03/2025 6:07 AM EDT [facility] ANION GAP 9 5 - 15 mmol/L 05/03/2025 6:07 AM EDT [facility] BLOOD UREA NITROGEN 97(H) 5 - 27 mg/dL 05/03/2025 6:07 AM EDT [facility] CREATININE 3.65(H) 0.40 - 1.00 mg/dL 05/03/2025 6:07 AM EDT [facility] Comment:METHOD TRACEABLE TO IDMS STANDARD GLUCOSE 89 65 - 99 mg/dL 05/03/2025 6:07 AM EDT [facility] CALCIUM 8.1(L) 8.5 - 10.5 mg/dL 05/03/2025 6:07 AM EDT [facility] TOTAL PROTEIN 4.9(L) 6.0 - 8.0 g/dL 05/03/2025 6:07 AM EDT [facility] ALBUMIN 2.4(L) 3.2 - 5.3 g/dL 05/03/2025 6:07 AM EDT [facility] ALKALINE PHOSPHATASE 137(H) 39 - 130 U/L 05/03/2025 6:07 AM EDT [facility] AST 248(H) <=41 U/L 05/03/2025 6:07 AM EDT [facility] ALT 142(H) <=31 U/L 05/03/2025 6:07 AM EDT [facility] BILIRUBIN,TOTAL 0.5 0.3 - 1.2 mg/dL 05/03/2025 6:07 AM EDT [facility] EGFR Non-Race Dependent 12(L) >=60 ml/min/1.7 3sq.m 05/03/2025 6:07 AM EDT [facility] Comment: eGFR not reported due to non-numeric value for Creatinine. Reported eGFR is based on the CKD-EPI 202 equation that does not use a race coefficient. Blood Venous blood / Unknown Venipuncture / Unknown 05/03/2025 4:14 AM EDT 05/03/2025 5:19 AM EDT Luigi Baird Israeleitan [employer] LAB BLOOD ORDERABLES Fin al Result Performing Organization Address City/[facility]/ZIP Co de Phone Number [address] [place] [address], [place] * (ABNORMAL) Bedside Glucose *Place/Obtain serum glucose if >500 per glucometer. (05/03/2025 1:37 AM EDT) Bedside Glucose (POC) 187(H) 65 - 99 mg/dL 05/03/2025 8:17 AM EDT [facility] arterial/capilla ry 05/03/2025 1:37 AM EDT 05/03/2025 8:17 AM EDT Jose Balderas MD POINT OF CARE TEST ORDERABLES Final Result Performing Organization Address [facility] de Phone Number [address] [place] [address], [place] * CT abdomen and pelvis without [...] Edward Jha MD on 05/02/2025 11:07 PM Ivania Trevino [employer] IMG CT ORDERABLES Sadaf l Result * Light Blue Top (05/02/2025 9:06 PM EDT) Extra Tube Auto Resulted 05/02/2025 11:01 PM EDT [facility] Blood Venous blood / Unknown Venipuncture / Unknown 05/02/2025 9:06 PM EDT 05/02/2025 9:09 PM EDT Yvette Watson DO LAB BLOOD ORDERABLES Final R esult Performing Organization Address [facility]/ZIP Co de Phone Number [address] [place] [address], [place] * Magnesium (05/02/2025 9:06 PM EDT) MAGNESIUM 1.9 1.8 - 2.6 mg/dL 05/02/2025 9:33 PM EDT [facility] Blood Venous blood / Unknown Venipuncture / Unknown 05/02/2025 9:06 PM EDT 05/02/2025 9:08 PM EDT us Ivania Trevino [employer] LAB BLOOD ORDERABLES F inal Result Performing Organization Address [facility] Co de Phone Number [address] [place] [address], [place] * (ABNORMAL) Comprehensive metabolic panel (05/02/2025 9:06 PM EDT) SODIUM 126(L) 134 - 146 mmol/L 05/02/2025 10:02 PM EDT [facility] POTASSIUM 5.5(H) 3.5 - 5.0 mmol/L 05/02/2025 10:02 PM EDT [facility] CHLORIDE 93(L) 98 - 109 mmol/L 05/02/2025 10:02 PM EDT [facility] CARBON DIOXIDE 24 22 - 32 mmol/L 05/02/2025 10:02 PM EDT [facility] ANION GAP 9 5 - 15 mmol/L 05/02/2025 10:02 PM EDT [facility] BLOOD UREA NITROGEN 134(H) 5 - 27 mg/dL 05/02/2025 10:02 PM EDT [facility] CREATININE 3.79(H) 0.40 - 1.00 mg/dL 05/02/2025 10:02 PM EDT [facility] Comment:METHOD TRACEABLE TO IDMS STANDARD GLUCOSE 231(H) 65 - 99 mg/dL 05/02/2025 10:02 PM EDT [facility] CALCIUM 8.1(L) 8.5 - 10.5 mg/dL 05/02/2025 10:02 PM EDT [facility] TOTAL PROTEIN 5.7(L) 6.0 - 8.0 g/dL 05/02/2025 10:02 PM EDT [facility] ALBUMIN 2.8(L) 3.2 - 5.3 g/dL 05/02/2025 10:02 PM EDT [facility] ALKALINE PHOSPHATASE 166(H) 39 - 130 U/L 05/02/2025 10:02 PM EDT [facility] AST 225(H) <=41 U/L 05/02/2025 10:02 PM EDT [facility] ALT 141(H) <=31 U/L 05/02/2025 10:02 PM EDT [facility] BILIRUBIN,TOTAL 0.7 0.3 - 1.2 mg/dL 05/02/2025 10:02 PM EDT [facility] EGFR Non-Race Dependent 12(L) >=60 ml/min/1.7 3sq.m 05/02/2025 10:02 PM EDT [facility] Comment: eGFR not reported due to non-numeric value for Creatinine. Reported eGFR is based on the CKD-EPI 2020 equation that does not use a race coefficient. Blood Venous blood / Unknown Venipuncture / Unknown 05/02/2025 9:06 PM EDT 05/02/2025 9:08 PM EDT us Ivania Trevino [employer] LAB BLOOD ORDERABLES F inal Result [facility] [address] [place] [address], * (ABNORMAL) CBC auto differential (05/02/2025 9:06 PM EDT) WBC 18.1(H) 4 - 11 x10E9/L 05/02/2025 10:21 PM EDT [facility] RBC Count 2.58(L) 3.8 - 5.2 X10E12/L 05/02/2025 10:21 PM EDT [facility] Hemoglobin 7.4(L) 11.7 - 15.5 g/dL 05/02/2025 10:21 PM EDT [facility] Hematocrit 22.6(L) 35 - 47 % 05/02/2025 10:21 PM EDT [facility] MCV 88 80 - 100 fL 05/02/2025 10:21 PM EDT [facility] MCH 28.6 27 - 34 pg 05/02/2025 10:21 PM EDT [facility] MCHC 32.6 32 - 36 g/dL 05/02/2025 10:21 PM EDT [facility] RDW 20.1(H) 11.5 - 15 % 05/02/2025 10:21 PM EDT [facility] Platelet Count 202 150 - 450 X10E9/L 05/02/2025 10:21 PM EDT [facility] MPV 10.3 7 - 12 fL 05/02/2025 10:21 PM EDT [facility] Bands % 4 % 05/02/2025 10:21 PM EDT [facility] Comment:This is an appended report. These results have been appended to a previously preliminary verified report. Neutrophils % 84 % 05/02/2025 10:21 PM EDT [facility] Comment:This is an appended report. These results have been appended to a previously preliminary verified report. Lymphocytes % 10 % 05/02/2025 10:21 PM EDT [facility] Comment:This is an appended report. These results have been appended to a previously preliminary verified report. Monocytes % 2 % 05/02/2025 10:21 PM EDT [facility] Comment:This is an appended report. These results have been appended to a previously preliminary verified report. Neutrophils Absolute (M) 16.0(H) 1.5 - 6.6 10*3/uL 05/02/2025 10:21 PM EDT [facility] Comment:This is an appended report. These results have been appended to a previously preliminary verified report. Lymphocytes Absolute 1.8 1.0 - 3.5 10*3/uL 05/02/2025 10:21 PM EDT [facility] Comment:This is an appended report. These results have been appended to a previously preliminary verified report. Monocytes Absolute 0.4 0.0 - 0.9 10*3/uL 05/02/2025 10:21 PM EDT [facility] Comment:This is an appended report. These results have been appended to a previously preliminary verified report. Macro Ovalocytes 1+ 05/02/20 10:21 PM EDT [facility] Comment:This is an appended report. These results have been appended to a previously preliminary verified report. Differential Type CELLAVISION DIFFERENTIAL 05/02/2025 10:21 PM EDT [facility] Comment:This is an appended report. These results have been appended to a previously preliminary verified report. Blood Venous blood / Unknown Venipuncture / Unknown 05/02/2025 9:06 PM EDT 05/02/2025 9:08 PM EDT us Ivania Trevino [employer] LAB BLOOD ORDERABLES F inal Result [facility] [address] [place] [address], * Lactate w/ Reflex (05/02/2025 9:05 PM EDT) LACTATE W/REFLEX 1.4 0.4 - 2.0 mmol/L 05/02/2025 9:29 PM EDT [facility] Blood Venous blood / Unknown Venipuncture / Unknown 05/02/2025 9:05 PM EDT 05/02/2025 9:09 PM EDT Narrative [facility] - 05/02/2025 9:29 PM EDT Result did not trigger repeat Lactate, re-order if needed. us Ivania Trevino [employer] LAB BLOOD ORDERABLES F inal Result [facility] [address] [place] [address], [place] * CT brain without contrast (05/02/2025 [...] Roxanne Sears MD on 05/02/2025 8:54 PM us Ivania Kathleen Uriel [employer] IMG CT ORDERABLES Sadaf aron Result * X-ray chest 1 view (05/02/2025 [...] MD on 05/02/2025 8:52 PM Ivania Trevino [employer] IMG DIAGNOSTIC IMAGING ORDERABLES Final Result * (ABNORMAL) Nursing fecal occult blood (OBN) (05/02/2025 8:28 PM EDT) POC Fecal Occult Blood Positive(A ) Negative, Invalid Result 05/03/2025 5:32 AM EDT [facility] Stool Feces / Unknown 05/02/2025 8 :28 PM EDT 05/03/2025 5:32 AM EDT Jose Balderas MD POINT OF CARE TEST ORDERABLES Final Result Performing Organization Address [facility]/ZIP Co de Phone Number [facility] [address] [place] [address], * ECG 12 lead (05/02/2025 8:20 PM EDT) 05/02/2025 8:20 PM EDT Narrative [facility] - 05/02/2025 8:35 PM EDT Ivania Trevino APRN-DOORMAKER ECG ORDERABLES Final Result Performing Organization Address [facility]/ZIP Co de Phone Number [facility] * Critical [...] Result documented in this encounter Visit Diagnoses Not on filedocumented in this encounter Admitting Diagnoses Diagnosis Acute [...] Given 05/11/2025 8:42 AM EDT 200 mg clopidogreL (PLAVIX) tablet 75 mg 75 [...] 8:03 AM EDT 325 mg furosemide (LASIX) tablet 40 mg 40 mg, oral, Daily, First dose on Tu05/11/25 at 1045, Look-alike/sound-alike medication - verify indication for use. Given 05/11/2025 12:03 PM EDT 40 mg insulin glargine (LANTUS, SEMGLEE) injection pen 15 Units 15 Units, subcutaneous, Nightly, First dose (after last modification) on 05/08/25 at 2200, Look-alike/sound-alike medication - verify indication for use. Prime with 2 units of insulin prior to administration. Basal (long acting) insulin for subcutaneous administration only. Do not mix with any other insulin. Pre-filled pens stable 28 days at room temperature. insulin lispro (HumaLOG) injection 2-10 Units 2-10 [...] 9:50 PM EDT 1 applicator pantoprazole (PROTONIX) EC tablet 40 mg 40 [...] Given 05/10/2025 6:26 PM EDT 40 mg pregabalin (LYRICA) capsule 150 mg 150 [...] EDT 75 mg sodium chloride 0.9 % flush 3 mL [...] IVPB administration, Starting on 05/02/25 at 2347 Restarted 05/04/2025 5:31 PM EDT 100 mL/hr New Bag 05/04/2025 3:29 PM EDT 25 mL 100 mL/hr documented in this encounter Active and Recently Administered Medications Times are shown in EDT. Scheduled Medication Order 05/09/2025 05/10/2025 05/11/2025 amiodarone (PACERONE) tablet 200 mg (CANCELED) 200 mg, oral, 2 times daily, First dose on Sat05/03/25 at 0000, Look-alike/sound-alike medication - verify indication for use. 0804 (Given - Provider: Caridad Mccormick RN)5894 (Given - Provider: Yodit Fox RN) 0847 (Given - Provider: Trudy Amin RN) amiodarone (PACERONE) tablet 200 mg 200 [...] 0843 (Given - Provider: Lola Huff, ANALI) ferrous sulfate tablet 325 mg 325 mg, [...] 20 mg/min 1200 (Given - Provider: Trudy Amin RN) furosemide (LASIX) tablet 40 mg (CANCELED) 40 mg, oral, Daily, First dose on Sat05/09/25 at 1145, Look-alike/sound-alike medication - verify indication for use. 1141 (Given - Provider: Caridad Mccormick RN) 0847 (Given - Provider: Trudy Amin, ANALI) furosemide (LASIX) tablet 40 mg 40 mg, [...] not met)1200 (Given - Provider: Trudy Amin, RN)1826 (Given - Provider: Trudy Amin, RN)2200 (Not [...] Look-alike/sound-alike medication - verify indication for use. 08 (Given - Provider: Caridad Mccormick RN)2143 (Given - Provider: Yodit Fox RN) 0847 (Given - Provider: Trudy Amin, RN)2099 (Not Given - Provider: Yodit Fox RN - Reason: Order parameters not met) 0842 (Given - Provider: Lola Huff RN) miconazole (MICOTIN-7) 2 % vaginal cream 1 applicator 1 applicator, vaginal, Nightly, First dose on 05/09/25 at 2200, For 7 days 2149 (Given - Provider: Yodit Fox RN) 2122 (Given - Provider: Yodit Fox RN) pantoprazole [...] Fox RN)0700 (Not Given - Provider: Trudy Amin, RN - Reason: Other - Comment: given at 537)1826 (Given - Provider: Trudy Amin, RN) 0538 (Given - Provider: Yodit Fox RN)0700 (Canceled Entry - Provider: Yodit Fox RN)1500 (Given - Provider: Lola Huff, ANALI) pregabalin (LYRICA) capsule 150 mg(Linked Group 1) 150 mg, oral, Nightly, First dose (after last modification) on Mary 05/06/25 at 2200, Look-alike/sound-alike medication. Verify indication for use 2143 (Given - Provider: Yodit Fox RN) 2012 (Given - Provider: Yodit Fox RN)2200 (Canceled Entry - Provider: Yodit Fox RN) pregabalin (LYRICA) capsule 75 mg(Linked Group 1) 75 mg, oral, 2 times daily, First dose (after last modification) on Mary 05/06/25 at 0800, Look-alike/sound-alike medication. Verify indication for use 0803 (Given - Provider: Caridad Mccormick RN)1410 (Given - Provider: Caridad Mccormick RN) 0847 (Given - Provider: Trudy Amin, RN)1429 (Given - Provider: Trudy Amin, RN) 0842 (Given - Provider: Lola Huff, ANALI)1437 (Given - Provider: Lola Huff, ANALI) sodium chloride 0.9 % flush 3 mL 3 mL, intravenous, Every 12 hours scheduled, First dose on 05/03/25 at 0000 0900 (Not Given - Provider: Caridad Mccormick RN - Reason: IV infusing)215 (Given - Provider: Yodit Fox RN) 0849 (Given - Provider: Trudy Amin, ANALI)2013 (Given - Provider: Yodit Fox RN) 0843 (Given - Provider: Lola Huff, ANALI) Continuous Medication Order 05/09/2025 05/10/2025 05/11/2025 heparin infusion 67963 units/500 mL in 0.45% NaCl (50 units/mL [...] Mccormick RN) 1619 (New Bag - Provider: Trudy Amin RN) 0604 (Stop Bag - Provider: [...] needed. 0448 (New Bag - Provider: Yodit Fox RN)0648 (Stop Bag - Provider: Caridad Mccormick, RN) 0853 (New Bag - Provider: Trudy Amin, RN)1053 (Stop Bag - Provider: Trudy Amin, RN) magnesium sulfate IVPB 4000 mg/100 mL in iso-osmotic water (40 mg/mL premix) 4,000 mg, intravenous, at 25 mL/hr, Administer over 240 Minutes, As needed, Magnesium level 1.6 mg/dL or less, or Ionized Magnesium level 0.44 mmol/L or less, Starting on [place] 05/02/25 at 2347, Recheck magnesium level 4 hours after infusion complete. With each magnesium result continue the replacement orders as needed. ondansetron (PF) (ZOFRAN) injection 4 mg 4 mg, intravenous, Every 6 hours PRN, nausea, vomiting, Starting on [place] 05/02/25 at 2347, Intravenous administration preferred to be given over 2-5 minutes. sodium chloride 0.9 % flush 3 mL 3 mL, intravenous, As needed, line care, before and after each intermittent use, Starting on [place] 05/02/25 at 2347 sodium chloride 0.9 % flush bag 25 mL, intravenous, at 100 mL/hr, Administer over 15 Minutes, As needed, line care, line care after IVPB administration, Starting on [place] 05/02/25 at 2347 sodium chloride 0.9 % infusion 20 mL/hr, intravenous, Continuous PRN, to maintain patency of lines, Starting on [place] 05/02/25 at 2347 Linked Groups Order Group [...] documented as of this encounter Care Teams Promotions Assistant Relationship Specialty Start Date End Date Myerholtz, Dagmar K, HEATING AND VENTILATING DRAFTER-DOORMAKER [address] [place] [phone] PCP - General Nurse Practitioner 06/19/24 documented as of this encounter
--- OUTSIDE RECORDS SUMMARY | 2025-05-10 08:00 | XMS_ITS ---
Author Organization [facility] [place] Address [address] [place] [address] Care Team Providers Care Student Life Advisor Name Role Phone Lucy Hutchins Primary Care Provider Triston Moses [phone] Allergies Allergen (clinical drug ingredient) Drug/Non Drug Allergy documented on EMR Reaction Allergy Type Onset Date Status Bactrim (sulfamethoxazole-trim ethoprim) Unknown Drug Allergy Active Codeine Phosphate (codeine) Unknown Drug Allergy Active REASON FOR VISIT 6 month ov, CKD stage 4, HTN, Nephrotic range proteinuria Social History Tobacco Use: Social History Observation Description Date Details (start date - stop date) Never Smoker NA - NA Tobacco Use/Smoking Question Answer Notes Patient is a nonsmoker Encounters Encounter Location Date Provider Diagnosis [facility] [address] [address] 05/10/2025 Triston Ramirez Plan Of Treatment No Information Progress Notes * Irma CACERES LDOB: [birth year] (80 yo F)Acc No.[id number]:05/10/2025 UNLOCKED PROGRESS NOTE Follow Up Patient: Domi ALIRIODARRENIrma Provider: Pool Ramirez MD :1945 A ge:80 Y S ex:Female Date:05/10/2025 Address:[address] [place], [place] [phone] Pcp:JIM Lopez Subjective: * Chief Complaints: * 1 . 6 month ov. 2. CKD stage 4. 3. HTN. 4. Nephrotic range proteinuria. * HPI: G eneral: 79 yo F with CKD, DM, htn, gout, here for follow up office visit. Her most recent Cr is elevated in the CKD 4 range at 3.0, nearing the CKD 5 range. Her last Hgb is low again at 8.0. Her K is normal. She is still having issues with LE edema, she stopped taking diuretics recently due to the Cr rise to 3.0. She denies any recent gout flares. She denies any dysuria or hematuria. She reports her BP control at home has been good since last visit. Her albuminuria is improved below 200 m g/g of Cr. She remains on Ozempic, tolerating well. She denies any recent UTI symptoms, but has WBCs present in her urine again. She is following with hematology for her anemia management, requiring occasional transfusions. * Medical History: H istory of diabetes mellitus, History of gout, History of hypertension, History of chronic kidney disease, stage 3, History of arrhthmia, Chronic kidney disease, stage III (moderate). * Surgical History: H istory of hernia repair , History of appendectomy , History of hysterectomy , Surgical / procedural history tumors removed from ovaries, heel spur surgery, hand surgery, 2 biopsies on breast, ear surgery, 3 rotar cuff surgeriesarthritis in left foot . * Hospitalization/Major Diagno stic Procedure: E R- Diarrhea 11 days, admitted 3 days 06/06/21, ER- Hip issues 05/21, [facility] Inpatient 04/05-04/10/23, [facility] Inpatient C-Diff 03/28-03/31/23, heart attack 07/2024, pneumonia and blood transfusion 08/2024. * Family History: F ather: . M other: , diagnosed with Other malignant neoplasm of unspecified site, Diabetes mellitus without mention of complication, type II or unspecified type, not stated as uncontrolled, Chronic kidney disease, unspecified, Unspecified essential hypertension. M igrated Family History:: diabetes- mother;Family history of cancer;Family history of lung cancer father;Family history of kidney disease mother;Family history of malignant neoplasm of the large intestine mother;Father ;Family history of hypertension mother and father;. B tutu(s): diagnosed with Unspecified heart disease. S ister(s): diagnosed with Diabetes mellitus without mention of complication, type II or unspecified type, not stated as uncontrolled, Unspecified essential hypertension. * Social History: T obacco Use: T obacco Use/Smoking P atregine is a n onsmoker. * Allergies: B actrim (sulfamethoxazole-trimethoprim): Allergy, Codeine Phosphate (codeine): Allergy. Objective: * Vitals: Assessment: Plan: * Treatment: * Preventive Medicine: Screenings/Counseling: T OBACCO ACTION PLAN P atregine counselled on the dangers of tobacco use and urged to quit. n on smoker. * * Electronic signature of Triston Ramirez MD, [id number] on 05/20/2025 at 07:32 AM EDT Sign off status: Pending Visit Status: N /S N/C (No Show/No Charge) * Provider: Pool Ramirez MD Date: 0 05/10/2025 Generated for Morgan johnson/Medardo/Panda on: 05/20/2025 07:32 AM EDT
[2025-05-20] VITALS (34 sets, daily range): BP systolic 113–134; BP diastolic 50–90; PULSE 56–84; TEMP 36.3–36.9; O2SAT 92–100; BMI 34.2; BMI 39.6
--- NOTE | 2025-05-20 07:26 | XR_ITS ---
The [address] [address] Patient Name: MACY ACHARYA MRN: [id number] date: 1945 Sex: F Assigned Patient Location: ED.MAIN Current Patient Location: ER Accession/Order Number: [id number] Exam Date: 05/20/2025 08:29 Report Date: 05/20/2025 08:30 At the request of: ASHLEE BROCK MD Procedure: XR chest 1V XR chest 1V 05/20/2025 8:12 AM SIGNS AND SYMPTOMS: ^sob PROTOCOL: Frontal radiograph of the chest COMPARISON: None FINDINGS: The trachea is midline. Atherosclerotic changes are present in the thoracic aorta. There is mild cardiomegaly. The lung parenchyma is clear. The bony thorax is intact. Degenerative changes are noted shoulders and thoracic spine. XR/XR chest 1V IMPRESSION: There is mild cardiomegaly. There is no focal consolidation. Impression dictated by: Luis Nascimento M.D. 05/20/2025 8:30 AM Dictation Location: [place] [address] Electronically authenticated by: [id number] Y Date: 05/20/2025 08:30
--- NOTE | 2025-05-20 07:26 | ECG_ITS ---
The [facility] Test Date: 2025-05-20 Pat Name: MACY ACHARYA Department: Room: - Gender: Female Turning Lathe Tender: : 1945 Requested By: Order Number: [id number] Reading MD: DOROTEO MARLOW Measurements Intervals [place] Rate: 58 P: 60 MS: 214 QRS: -15 QRSD: 86 T: 45 QT: 422 QTc: 418 Interpretive Statements 1100 Sinus rhythm 2231 First degree AV block 4068 Nonspecific Twave abnormality 8102 Low QRS voltage in chest leads 9150 abnormal ECG No previous ECG available for comparison Electronically Signed On 05-20-2025 16:40:26 EDT by DOROTEO MARLOW
--- NOTE | 2025-05-20 07:26 | CT_ITS ---
The [address] [address] Patient Name: MACY ACHARYA MRN: [id number] date: 1945 Sex: F Assigned Patient Location: ED.MAIN Current Patient Location: Accession/Order Number: [id number] Exam Date: 05/20/2025 08:30 Report Date: 05/20/2025 08:38 At the request of: ASHLEE BROCK MD Procedure: CT cervical spine wo con CT head/brain wo con, CT cervical spine wo con 05/20/2025 8:12 AM SIGNS AND SYMPTOMS: Fall with bruising to left side of forehead TECHNIQUE:Multi-detector CT axial slices of the brain and cervical spine were obtained without IV contrast. Helical,sagittal, coronal, and 3-D reconstructions of the cervical spine were performed. CT was performed with one or more of the following dose reduction techniques: Automated exposure control, adjustment of the mA and/or kV according to patient size, or use of iterative reconstruction technique. COMPARISON: None. FINDINGS: Noncontrast head CT: There is no shift of the midline structures, acute intracranial bleeding, mass effects, or evidence of acute ischemia. Atherosclerotic changes are noted in the V4 segments of the vertebral arteries and intracranial segments of the internal carotid arteries. There is age-related cortical atrophy. There is periventricular white matter hypoattenuation. The ventricular system is normal in size. The brainstem and the cerebellum are unremarkable. Mucosal thickening is noted in the maxillary sinuses and within the ethmoid air cells. The visualized intraorbital contents and the infratemporal soft tissues show no acute abnormality. The osseous structures in the skull base and the calvarium show no abnormality. There is frontal hyperostosis. There is a hematoma in the left frontal scalp. Cervical spine: There is preservation of the vertebral body heights. There is mild disc height loss with anterior osteophyte formation at C4-C5, C5-C6, and C6-C7. Facet hypertrophy is present. No fractures or dislocations are seen. The alignment of the cervical spine is normal. The craniocervical junction is within normal limits. Degenerative changes are noted in the atlantoaxial joint. The prevertebral soft tissues are within normal limits. The paraspinous soft tissues are within normal limits. The lung apices are unremarkable. CT/CT head/brain wo con IMPRESSION: No acute intracranial pathology. Chronic age-related neurodegenerative changes are noted as above. There is a hematoma in the left frontal scalp. No acute cervical spine injury. Degenerative changes are noted in the cervical spine as above. Impression dictated by: Luis Nascimento M.D. 05/20/2025 8:38 AM Dictation Location: [place] [address] Electronically authenticated by: [id number] Y Date: 05/20/2025 08:38
--- NOTE | 2025-05-20 07:28 | CT_ITS ---
The [address] [address] Patient Name: MACY ACHARYA MRN: [id number] date: 1945 Sex: F Assigned Patient Location: ED.MAIN Current Patient Location: Accession/Order Number: [id number] Exam Date: 05/20/2025 08:30 Report Date: 05/20/2025 08:38 At the request of: ASHLEE BROCK MD Procedure: CT cervical spine wo con CT head/brain wo con, CT cervical spine wo con 05/20/2025 8:12 AM SIGNS AND SYMPTOMS: Fall with bruising to left side of forehead TECHNIQUE:Multi-detector CT axial slices of the brain and cervical spine were obtained without IV contrast. Helical,sagittal, coronal, and 3-D reconstructions of the cervical spine were performed. CT was performed with one or more of the following dose reduction techniques: Automated exposure control, adjustment of the mA and/or kV according to patient size, or use of iterative reconstruction technique. COMPARISON: None. FINDINGS: Noncontrast head CT: There is no shift of the midline structures, acute intracranial bleeding, mass effects, or evidence of acute ischemia. Atherosclerotic changes are noted in the V4 segments of the vertebral arteries and intracranial segments of the internal carotid arteries. There is age-related cortical atrophy. There is periventricular white matter hypoattenuation. The ventricular system is normal in size. The brainstem and the cerebellum are unremarkable. Mucosal thickening is noted in the maxillary sinuses and within the ethmoid air cells. The visualized intraorbital contents and the infratemporal soft tissues show no acute abnormality. The osseous structures in the skull base and the calvarium show no abnormality. There is frontal hyperostosis. There is a hematoma in the left frontal scalp. Cervical spine: There is preservation of the vertebral body heights. There is mild disc height loss with anterior osteophyte formation at C4-C5, C5-C6, and C6-C7. Facet hypertrophy is present. No fractures or dislocations are seen. The alignment of the cervical spine is normal. The craniocervical junction is within normal limits. Degenerative changes are noted in the atlantoaxial joint. The prevertebral soft tissues are within normal limits. The paraspinous soft tissues are within normal limits. The lung apices are unremarkable. CT/CT cervical spine wo con IMPRESSION: No acute intracranial pathology. Chronic age-related neurodegenerative changes are noted as above. There is a hematoma in the left frontal scalp. No acute cervical spine injury. Degenerative changes are noted in the cervical spine as above. Impression dictated by: Luis Nascimento M.D. 05/20/2025 8:38 AM Dictation Location: [place] [address] Electronically authenticated by: [id number] Y Date: 05/20/2025 08:38
[2025-05-20] MEDS: DEXTROSE 50 %-WATER 25 GM/50 ML SYRINGE IV (07:31)
--- OUTSIDE RECORDS SUMMARY | 2025-05-20 07:32 | XMS_ITS | Encounter Summary ---
Author Organization [employer] Address [id number] [address] [place] [address] Care Team Providers Care Enhanced Environmental Operator Name Role Phone Dagmar Hernandez SET O TYPE OPERATOR-RIB BUILDER Primary Care Pro vider Reason for Visit * Reason Onset Date Comments Med Refill 10/13/2020 Encounter Details Date Type Department Care Team (Late Contact Info) Description 10/13/2020 Refill [facility] [address] [phone] Janice Carcamo, ANALI Med Refill Social History Tobacco Use Types Packs/Day Years Used Date Smoking Tobacco: Former Smokeless Tobacco: Never Alcohol Use Standard Drinks/Week Comments Not Currently 0 (1 standard drink = 0.6 oz pur e alcohol) PHQ-2 Answer Date Recorded Total Score 0 05/17/2020 Childcare Answer Date Recorded Childcare Unknown 03/11/2019 Employment Answer Date Recorded Employment Unknown 03/11/2019 Purpose - Life Answer Date Recorded Purpose and direction in life Unknown Comments No Sex and Gender Information Value Date Recorded Sex Assigned at Not on file Legal Sex Female 11:23 AM EDT Gender Identity Not on file Sexual Orientation Not on file documented as of this encounter Plan of Treatment Upcoming Encounters Date Type Department Care Team (Late Contact Info) Description 05/21/2025 9:30 AM EDT Hospital Encounter [facility] [address] [place] [phone] 05/25/2025 10:15 AM EDT [facility] [address] [place] [phone] Kelvin Myles MD [address] [place] [phone] 06/03/2025 11:15 AM EDT Office Visit [facility] Medical Oncology [address] [place] [phone] Rowdy Riley MD [address] [facility] [address] [address] [address] [place] [address] 07/29/2025 3:30 PM EDT Office Visit [facility] Neurology, A Department of [facility] [address] [phone] [facility] [address] [address] 07/30/2025 2:30 PM EDT Office Visit [facility] Oncology [address] [place] [phone] Rowdy Riley MD [address] [facility] [address] [place] [address] documented as of this encounter Visit Diagnoses Diagnosis Hyperlipidemia, unspecified hyperlipidemia type- Primary documented in this encounter Additional Health Concerns Infection Onset Date Last Indicated Resolved Time Enteric Rule-Out 06/06/2021 06/06/2021 06/08/2021 8:24 AM EDT Enteric Rule-Out 03/29/2023 03/29/2023 03/30/2023 3:07 PM EDT C. Difficile 03/29/2023 03/29/202304/15/2023 11:1 2 PM EDT COVID-19 Rule-Out 09/18/2024 09/18/2024 09/18/2024 11:11 PM EST COVID-19 Rule-Out Comment:Results negative as of 09/18/24 09/18/2024 09/18/2024 09/19/2024 8:[address] Assessment Noted Time PHQ-9 Depression Total Score: 0 05/17/20 1:00 PM EDT documented as of this encounter Care Teams Enhanced Environmental Operator Relationship Specialty Start Date End Date Dagmar Hernandez, SET O TYPE OPERATOR-RIB BUILDER [address] [place] [address] PCP - General Nurse Practitioner 06/19/24 documented as of this encounter
--- OUTSIDE RECORDS SUMMARY | 2025-05-20 07:32 | XMS_ITS | Encounter Summary ---
Author Organization [employer] Address [id number] [address] [place] [address] Care Team Providers Care Cleaner Carpet And Upholstery Name Role Phone Dagmar Hernandez SECURITY TEAM LEAD-PCT Primary Care Pro vider Reason for Visit * Reason Onset Date Comments Med Refill 09/07/2021 Encounter Details Date Type Department Care Team (Late st Contact Info) Description 09/07/2021 Refill [facility] [address] [facility] [address] [place] [address] Luis Granger MD [address] [facility] [address] [place] [address] Other chronic pain Social History Tobacco Use Types Packs/Day Years Used Date Smoking Tobacco: Former Smokeless Tobacco: Never Alcohol Use Standard Drinks/Week Comments Not Currently 0 (1 standard drink = 0.6 oz pur e alcohol) PHQ-2 Answer Date Recorded Total Score 0 03/20/2021 Childcare Answer Date Recorded Childcare Unknown 03/11/2019 Employment Answer Date Recorded Employment Unknown 03/11/2019 Purpose - Life Answer Date Recorded Purpose and direction in life Unknown Comments No Sex and Gender Information Value Date Recorded Sex Assigned at Not on file Legal Sex Female 11:23 AM EDT Gender Identity Not on file Sexual Orientation Not on file documented as of this encounter Miscellaneous Notes * Telephone Encounter - Magdalene Granger LPN - 09/07/2021 11:50 AM EST OARRS DONE 09/07/2021 LAST FILLED 05/03/2021 documented in this encounter Plan of Treatment Upcoming Encounters Date Type Department Care Team (Late st Contact Info) Description 05/21/2025 9:30 AM EDT Hospital Encounter [facility] [address] [place] [phone] 05/25/2025 10:15 AM EDT Office Visit [facility] [address] [place] [phone] Kelvin Myles MD [address] [place] [phone] 06/03/2025 11:15 AM EDT Office Visit [facility] On[facility] [address] [place] [phone] Rowdy Riley MD [address] [employer] [facility] [address] [place] [address] 07/29/2025 3:30 PM EDT Office Visit [facility], A Department of [facility] [address] [phone] Janice Bhat APRN-PCT [address] [phone] 07/30/2025 2:30 PM EDT Office Visit [facility] [address] [place] [phone] Rowdy Riley MD [address] [facility] #[place] [address] documented as of this encounter Visit Diagnoses Diagnosis Other chronic pain documented in this encounter Additional Health Concerns Infection Onset Date Last Indicated Resolved Time Enteric Rule-Out 03/29/2023 03/29/2023 03/30/2023 3:07 PM EDT C. Difficile 03/29/2023 03/29/2023 04/15/2023 11:1 2 PM EDT COVID-19 Rule-Out 09/18/2024 09/18/2024 09/18/2024 11:11 PM EST COVID-19 Rule-Out Comment:Results negative as of 09/18/24 09/18/2024 09/18/2024 09/19/2024 8:[address] Assessment Noted Time PHQ-9 Depression Total Score: 0 03/20/20 2:00 PM EDT documented as of this encounter Care Teams Cleaner Carpet And Upholstery Relationship Specialty Start Date End Date Dagmar Hernandez, SECURITY TEAM LEAD-PCT [address] [place] [address] PCP - General Nurse Practitioner 06/19/24 documented as of this encounter
--- OUTSIDE RECORDS SUMMARY | 2025-05-20 07:32 | XMS_ITS | Encounter Summary ---
Author Organization [facility] Address [id number] [address] [place] [address] Care Team Providers Care Equipment Service Associate Name Role Phone Dagmar Hernandez TOOL SETTER APPRENTICE-MANUFACTURING SUPERVISOR Primary Care Pro vider Encounter Details Date Type Department Care Team (Late Contact Info) Description 10/13/2020 Orders Only [facility] Cardiology [address] [phone] Tara Driscoll MA Hyperlipidemia, unspecified hyperlipidemia type Social History Tobacco Use Types Packs/Day Years [...] Description 05/21/2025 9:30 AM EDT Hospital Encounter [facility] [address] [place] [address] 05/25/2025 10:15 AM EDT Office Visit [facility] General Surgery [address] [place] [phone] Kelvin Myles MD [address] [place] [phone] 06/03/2025 11:15 AM EDT Office Visit [facility] - Medical Oncology [address] [place] [phone] Rowdy Riley MD [address] [place] [address] 07/29/2025 3:30 PM EDT Office Visit [facility] Neurology, A Department of [facility] [address] [phone] Janice Bhat, TOOL SETTER [facility] [address] [phone] 07/30/2025 2:30 PM EDT Office Visit Heather [facility] - Medical Oncology [address] [place] [phone] Rowdy Riley MD [address] [facility] [address] [place] [address] documented as of this encounter Procedures Procedure Name Priority Date/Time Associated Diagnosis Comments ALT Routine 10/12/2020 Hyperlipidemia, unspecified hyperlipidemia type BILIRUBIN, TOTAL Routine 10/12/2020 Hyperlipidemia, unspecified hyperlipidemia type LIPID PROFILE Routine 10/12/2020 Hyperlipidemia, unspecified hyperlipidemia type documented in this encounter Results * Lipid panel (10/12/2020) External Cholesterol 93 SUNQUEST External Cholesterol:Hdl 3.7 SUNQUEST External Hdl Cholesterol 25 SUNQUEST External Ldl (Calc) 40 SUNQUEST External Triglycerides 138 SUNQUEST External Very Low Lipoprotein 28 SUNQUEST 10/12/2020 [employer] TOOL SETTER APPRENTICE-[employer] LAB BLOOD ORDERABLES Final Result Performing Organization Address [facility] de Phone Number SUNQUEST * ALT (10/12/2020) 10/12/2020 [employer] TOOL SETTER APPRENTICE-MANUFACTURING SUPERVISOR LAB BLOOD ORDERABLES Final Result Performing Organization Address [facility] de Phone Number SUNQUEST * Bilirubin, total (10/12/2020) 10/12/2020 [employer] TOOL SETTER APPRENTICE-[employer] LAB BLOOD ORDERABLES Final Result Performing Organization Address [facility] de Phone Number SUNQUEST documented in this encounter Visit Diagnoses Diagnosis Hyperlipidemia, unspecified hyperlipidemia type documented in this encounter Additional Health Concerns [...] documented as of this encounter Care Teams Equipment Service Associate Relationship Specialty Start Date End Date Dagmar Hernandez, TOOL SETTER APPRENTICE-MANUFACTURING SUPERVISOR [address] [place] [phone] PCP - General Nurse Practitioner 06/19/24 documented as of this encounter
--- OUTSIDE RECORDS SUMMARY | 2025-05-20 07:32 | XMS_ITS | Encounter Summary ---
Author Organization [facility] tem Address [id number] [address] [place] [address] Care Team Providers Care Apprentice Carpenter Name Role Phone Dagmar Hernandez CORNCOB PIPE SUPERVISOR-REPRESENTATIVE PERSONAL SERVICE Primary Care Pro vider Encounter Details Date Type Department Care Team (Late Contact Info) Description 04/20/2021 Orders Only [facility] Adult Neurology [address] [facility] [address] [place] [address] Magdalene Granger LPN Polyneuropathy; Vitamin B12 deficiency; Vitamin D deficiency Social History Tobacco Use Types Packs/Day Years [...] 05/21/2025 9:30 AM EDT Hospital Encounter [facility] [address] [place] [phone] 05/25/2025 10:15 AM EDT Office Visit [facility] General Surgery [address] [facility] [place] [facility] [phone] Kelvin Myles MD [address] [place] [phone] 06/03/2025 11:15 AM EDT Office Visit [facility] - Medical Oncology [address] [place] [phone] Rowdy Riley MD [address] [facility] [address] [place] [address] 07/29/2025 3:30 PM EDT Office Visit [facility], A Department of [facility] [address] [phone] Janice [facility] [address] [phone] 07/30/2025 2:30 PM EDT Office Visit [facility] - Medical Oncology [address] [place] [phone] Rowdy Riley MD [address] [facility] [address] [place] [address] documented as of this encounter Procedures Procedure Name Priority Date/Time Associated Diagnosis Comments METHYLMALONIC ACID SCREEN Routine 04/11/2021 Polyneuropathy Vitamin B12 deficiency VITAMIN D 25 HYDROXY Routine 04/11/2021 Vitamin D deficiency VITAMIN B12 Routine 04/11/2021 Polyneuropathy Vitamin B12 deficiency documented in this encounter Results * Vitamin B12 (04/11/2021) Vitamin B-12 675 SUNQUEST 04/11/2021 Result Nora Granger MD LAB BLOOD ORDERABLES Final Resu lt SUNQUEST * (ABNORMAL) Vitamin D 25 hydroxy (04/11/2021) External Vitamin D 25-Hydroxy >120.0 SUNQUEST 04/11/2021 Result Nora Granger MD LAB BLOOD ORDERABLES Final Resu lt Performing Organization Address [facility]/ZIP Co de Phone Number SUNQUEST * Methylmalonic acid screen (04/11/2021) Methylmalonic Acid 0.31 SUNQUEST 04/11/2021 Result Nora Granger MD LAB BLOOD ORDERABLES Final Resu lt Performing Organization Address [facility] Co de Phone Number SUNQUEST documented in this encounter Visit Diagnoses Diagnosis Polyneuropathy Unspecified hereditary and idiopathic peripheral neuropathy Vitamin B12 deficiency Other B-complex deficiencies Vitamin D deficiency documented in this encounter Additional Health Concerns [...] Time PHQ-9 Depression Total Score: 0 03/20/20 21 2:00 PM EDT documented as of this encounter Care Teams Apprentice Carpenter Relationship Specialty Start Date End Date Dagmar Hernandez, CORNCOB PIPE SUPERVISOR-REPRESENTATIVE PERSONAL SERVICE [address] [place] [address] PCP - General Nurse Practitioner 06/19/24 documented as of this encounter
--- OUTSIDE RECORDS SUMMARY | 2025-05-20 07:32 | XMS_ITS | Encounter Summary ---
Author Organization [facility] Address [id number] [address] [place] [address] Care Team Providers Care Director Data Management Name Role Phone Dagmar Hernandez DEMAND PLANNING MANAGER-IN FLIGHT CREW MEMBER Primary Care Pro vider Encounter Details Date Type Department Care Team (Late Contact Info) Description 04/20/2022 Orders Only [facility] Adult Neurology [address] [facility] [address] [place] [address] Stephanie Johnson CMA Vitamin B12 deficiency; Vitamin D deficiency Social [...] [facility] [address] [place] [address] 05/25/2025 10:15 AM EDT Office Visit [facility] General Surgery [address] [place] [phone] Kelvin Mylse MD [address] [place] [phone] 06/03/2025 11:15 AM EDT Office Visit [facility] - Medical Oncology [address] [place] [phone] Rowdy Riley MD [address] [facility] [address] [place] [address] 07/29/2025 3:30 PM EDT Office Visit [facility] Neurology, A Department of [facility] [address] [phone] Janice Bhat, DEMAND PLANNING MANAGERBRIGHAM [facility] [address] [phone] 07/30/2025 2:30 PM EDT Office Visit Heather [facility] - Medical Oncology [address] [place] [phone] Rowdy Riley MD [address] [facility] [address] [place] [address] documented as of this encounter Procedures Procedure Name Priority Date/Time Associated Diagnosis Comments METHYLMALONIC ACID SCREEN Routine 04/12/2022 Vitamin B12 deficiency VITAMIN D 25 HYDROXY Routine 04/12/2022 Vitamin D deficiency VITAMIN B12 Routine 04/12/2022 Vitamin B12 deficiency documented in this encounter Results * Vitamin D 25 hydroxy (04/12/2022) External Vitamin D 25-Hydroxy 62 SUNQUEST 04/12/2022 us Luis Granger MD LAB BLOOD ORDERABLES Final Resu lt SUNQUEST * Vitamin B12 (04/12/2022) Vitamin B-12 1,612 SUNQUEST 04/12/2022 us Luis Granger MD LAB BLOOD ORDERABLES Final Resu lt Performing Organization Address City/[facility]/ZIP Co de Phone Number SUNQUEST * Methylmalonic acid screen (04/12/2022) Methylmalonic Acid 0.31 SUNQUEST 04/12/2022 us Luis Granger MD LAB BLOOD ORDERABLES Final Resu lt Performing Organization Address City/[facility]/ZIP Co de Phone Number SUNQUEST documented in this encounter Visit Diagnoses Diagnosis Vitamin B12 deficiency Other B-complex deficiencies Vitamin [...] documented as of this encounter Care Teams Director Data Management Relationship Specialty Start Date End Date Dagmar Hernandez, DEMAND PLANNING MANAGER-IN FLIGHT CREW MEMBER [address] [place] [phone] PCP - General Nurse Practitioner 06/19/24 documented as of this encounter
--- OUTSIDE RECORDS SUMMARY | 2025-05-20 07:33 | XMS_ITS | Encounter Summary ---
Author Organization [facility] Address [id number] [address] [place] [address] Care Team Providers Care Unit Nurse Name Role Phone Dagmar Hernandez QUILL FIXER-CLAIMS DIRECTOR Primary Care Pro vider Reason for Visit * Reason Onset Date Comments Med Refill 11/19/2024 Encounter Details Date Type Department Care Team (Late st Contact Info) Description 11/19/2024 [facility]phone [facility] [address] [place] [address] Ryan Dodd Med Refill Social History Tobacco Use Types Packs/Day Years Used Date Smoking Tobacco: Former Cigarettes 0.5 10 1 975 - 1985 Smokeless Tobacco: Never Alcohol Use Standard Drinks/Week Comments Not Currently 0 (1 standard drink = 0.6 oz pur e alcohol) [facility] Utilities Answer Date Recorded In the past 12 months has [employer], gas, oil, or water Abigail Stewart threatened to shut off services in your home? No 09/19/2024 AUDIT-C Answer Date Recorded Q1: How often do you have a drink containing alcohol? Never 2023 Q2: How many drinks containi ng alcohol do you have on a typical day when you are drinking? Patient does not drink Q3: How often do you have si x or more drinks on one occasion? Never 2023 Overall Financial Resource Strain (CARDIA) Answe r Date Recorded How hard is it for you to pa y for the very basics like food, housing, medical care, and heating? Not hard at all 01/05/2024 PHQ-2 Answer Date Recorded Total Score 2 12/16/2023 Exercise Vital Sign Answer Date Recorde d [...] from medical appointments or from getting medications? No 08/31 In the past 12 months, has l ack of transportation kept you from meetings, work, or from getting things needed for daily living? No 09/19/2024 Housing Instability Answer Date Recorde d Are you worried or concerned that in the next two months you may not have stable housing that you own, rent or stay in as a part of a household? No 09/19/2024 Childcare Answer Date Recorded Childcare Unknown 03/11/2019 Employment Answer Date Recorded Employment Unknown 03/11/2019 Hunger Screening Answer Date Recorded Within the past 12 months we worried whether our food would run out before we got money to buy more. Never True 09/28/2024 Within the past 12 months th e food we bought just didn't last and we didn't have money to get more. Never True 09/28/2024 Purpose - Life Answer Date Recorded Purpose and direction in life Unknown Comments No Sex and Gender Information Value Date Recorded Sex Assigned at Not on file Legal Sex Female 11:23 AM EDT Gender Identity Not on file Sexual Orientation Not on file documented as of this encounter Miscellaneous Notes * Telephone Encounter - Ryan Dodd - 11/19/2024 9:28 AM EST Medication Refill request: Medication Name and Strength: clopidogreL (PLAVIX) 75 mg tablet Current dose & Frequency: Take 1 tablet (75 mg total) by mouth in the morning. 30 day or 90 day supply preferred: 30 Pharmacy Name: [facility] [address] [place] [address] - Request was made by: Patient Next appointment: 04/01/25 10:[address] Granger Thank you! * Telephone Encounter - Maxine Amin CMA - 11/19/2024 9:28 AM EST Last OV 12/16/2023 documented in this encounter Plan of Treatment Upcoming Encounters Date Type Department Care Team (Late st Contact Info) Description 05/21/2025 9:30 AM EDT [facility] [place] [facility] - [facility] Imaging [address] [place] [phone] 05/25/2025 10:15 AM EDT Office Visit [facility] General Surgery [address] [place] [phone] Kelvin Myles MD [address] [place] [phone] 06/03/2025 11:15 AM EDT Office Visit Heatherjacque Jarrettn [facility] - Medical Oncology [address] [place] [phone] Rowdy Riley MD [address] [place] [address] [address] [place] [address] 07/29/2025 3:30 PM EDT Office Visit [facility] Neurology, A Department of [facility] [address] [facility] [address] [place] [address] Janice Bhat APRN-CLAIMS DIRECTOR [address] [facility] [address] [place] [address] 07/30/2025 2:30 PM EDT Office Visit Heather L Shane [facility] - Medical Oncology [address] [place] [phone] Rowdy Riley MD [address] [facility] [address] [place] [address] documented as of this encounter Visit Diagnoses Not on filedocumented in this encounter Additional Health Concerns Assessment Noted Time PHQ-9 Depression Total Score: 2 12/16/19 24 2:58 PM EDT documented as of this encounter Care Teams Unit Nurse Relationship Specialty Start Date End Date Dagmar Hernandez, QUILL FIXER-CLAIMS DIRECTOR [address] [facility] [place] [phone] PCP - General Nurse Practitioner 06/19/24 documented as of this encounter
--- OUTSIDE RECORDS SUMMARY | 2025-05-20 07:33 | XMS_ITS | Patient Health Record ---
Author Organization [facility] [place] Address [address] [place] [address] Care Team Providers Care Drier Operator Helper Name Role Phone Lucy Hutchins Primary Care Provider Unavail able Triston Ramirez Unavailable [phone] BalbirCathy villalpando Unavailable [phone] Allergies Allergen (clinical drug ingredient) Drug/Non Drug Allergy documented on EMR Reaction Allergy Type Onset Date Status Bactrim (sulfamethoxazole-trim ethoprim) Unknown Drug Allergy Active Codeine Phosphate (codeine) Unknown Drug Allergy Active Results Component Value Reference Range Notes BMP w/GFR Reviewed date:11/23/2024 08:54:07 AM Interpretation: Performing Lab:[facility] ([facility]), [address], [place]. [address] PH:[phone] Notes/Report: SODIUM 140 134-146 mmol/L POTASSIUM 4.8 3.5-5.0 mmol/L CHLORIDE 105 98-109 mmol/L CARBON DIOXIDE 26 22-32 mmol/L ANION GAP 9 5-15 mmol/L BLOOD UREA NITROGEN 27 5-27 mg/dL CREATININE 2.23 0.40-1.00 mg/dL METHOD TRACE ABLE TO IDMS STANDARD GLUCOSE 219 65-99 mg/dL CALCIUM 9.0 8.5-10.5 mg/dL eGFR (CKD-EPI) NON-RACE DEPENDENT 22 >59 ml/min/1.73sq.m Reported eGFR is based on the CKD-EPI 2020 equation that does not use a race coefficient. PERFORMED AT [facility] [address] [place] [address] CBC (COMPLETE BLOOD COUNT) * Reviewed date:11/23/2024 08:55:10 AM Interpretation: Performing Lab:[facility] ([facility]), [address] [place] [address] AVE[address] [place] [address]. [address] PH:[phone] Notes/Report: WBC COUNT 7.5 4.0-11.0 X10E9/L RBC COUNT 2.83 3.80-5.20 X10E12/L HEMOGLOBIN 8.9 11.7-15.5 g/dL HEMATOCRIT 27.7 35-47 % MCV 98 80-100 fL MCH 31.6 27-34 pg MCHC 32.3 32-36 g/dL RDW 18.5 11.5-15.0 % PLATELET COUNT 227 150-450 X10E9/L MPV 9.6 7-12 fL PERFORMED AT [address] [place] [address] ALBUMIN Reviewed date:11/23/2024 08:55:40 AM Interpretation: Performing Lab:[facility] ([facility]), [address] [place], [place] [address]E., [address] [place] [address]. [address] PH:[phone] Notes/Report: ALBUMIN 3.4 3.2-5.3 g/dL PERFORMED AT [address] [place] [address] MAGNESIUM Reviewed date:11/23/2024 08:49:44 AM Interpretation: Performing Lab:[facility] ([facility]), [address] [place], [place] [address]E., [address] [place] [address]. [address] PH:[phone] Notes/Report: MAGNESIUM 1.8 1.8-2.6 mg/dL PERFORMED AT [address] [place] [address] PHOSPHORUS Reviewed date:11/23/2024 08:49:26 AM Interpretation: Performing Lab:[facility] ([facility]), [address] [place] [address] AVE[address] [place] [address]. [address] PH:[phone] Notes/Report: PHOSPHORUS 4.4 2.4-4.9 mg/dL PERFORMED AT [address] [place] [address] MICROALBUMIN WITH RATIO Reviewed date:11/23/2024 08:49:04 AM Interpretation: Performing Lab:[facility] ([facility]), [address] [place] [address], [address] [address] PH:[phone] Notes/Report: MICROALBUMIN, URINE 33.9 0.0-1.9 mg/dL URINE CREAT 112.70 ALB/CREAT RATIO 300.8 0.0-30.0 mg/g creat PERFO RMED AT [address] [address] URINALYSIS Reviewed date:11/23/2024 08:48:26 AM Interpretation: Performing Lab:[facility] ([facility]), [address] [place] [address], [address] [address] PH:[phone] Notes/Report: COLOR YELLOW YELLOW TURBIDITY HAZY CLEAR SPECIFIC GRAVITY 1.015 1.003-1.035 NITRITE Negative Negative PH,URINE 6.5 5.0-8.5 LEUKOCYTE ESTERASE Large Negative PROTEIN 70 Negative mg/dL GLUCOSE (URINE) Negative Negative mg/dL KETONES (URINE) Negative Negative mg/dL UROBILINOGEN <1.1 <1.1 eu/dL BILIRUBIN (URINE) Negative Negative BLOOD/HGB MODERATE Negative MUCOUS PRESENT NONE R.B.CELLS 6 0-5 /hpf SQUAMOUS EPITHELIUM >27 0-5 /hpf WBC CLUMPS FEW NONE HYALINE CASTS 4 0-2 /lpf W.B.CELLS 107 0-5 /hpf PERFORMED AT [address] [address] MICROSCOPIC (UR) URINE RECEIVED WITHO UT PRESERVATIVE-DELAYS IN TRANSPORT MAY AFFECT RESULTS.INTERPRET WITH CAUTION AND CLINICAL CORRELATION IS RECOMMENDED. Reason For Referral No Information Medications Medication SIG (Take, Route, Frequency, Duration) Notes Start Date End Date Status glipiZIDE ER 10 MG 1 tablet, extended release Daily Not-Taking Furosemide 20 MG 1 tablet QOD Not-Taking Caltrate 600 with D 600 mg-400 intl units 1 tablet BID Not-Taking Alendronate Sodium 70 MG 1 tablet 30 min utes before the first food, beverage or medicine of the day with plain water Orally Weekly Not-Taking Aspirin 81 mg 1 DAILY Activ e Insulin Lispro 100 UNIT/ML 30 units Subcutaneous Daily Not-Taking Rosuvastatin Calcium 10 MG 1 tablet Oral ly Once a day for 30 day(s) Active Vitamin D 1000 UNIT Orally Once a day Active Vitamin B12 1000 MCG 1 tablet Orally Onc e a day for 30 day(s) Active Tylenol Extra Strength 500 MG 2 tablet Orally every 6 hrs Active Tresiba 100 UNIT/ML as directed Subcutaneous Active Allopurinol 300 MG 1 tablet Orally Daily for 90 days Active Ozempic (1 MG/DOSE) 2 MG/1.5ML as directed Subcutaneous Active Torsemide 10 MG 1 tablet Orally Once a day for 30 days 03/08/2025 Active oxyBUTYnin Chloride 5 MG 1 tablet Orally Once a day Active Metoprolol Tartrate 25 MG 1 tablet Orall y every 12 hrs Active Lyrica 75 MG 1 capsule Orally BID Active Plavix 75 MG 1 tablet Orally Once a day Active Pantoprazole Sodium 40 MG 1 tablet Orall y Once a day for 30 day(s) Active Lokelma 10 GM 1 packet dissolved in water Orally Once a day for 30 day(s) 11/29/2021 Not-Taking Levemir 100 UNIT/ML 50 units Subcutaneous Daily Not-Taking Lisinopril 10 MG Take 1 tablet by mouth once daily for 90 Not-Taking hydroCHLOROthiazide 25 MG Take 1 tablet by mouth once daily in the morning for 30 days for 30 Active Simvastatin 40 MG 1 tablet Orally DAILY Not-Taking Ferrous Sulfate 325 (65 Fe) MG 1 tablet Orally Once a day for 30 days 05/21/2022 Active Ranitidine 150 mg 1 tab Oral BID Not-Taking Eliquis 5 MG as directed Orally Active NovoLOG FlexPen 100 UNIT/ML Subcutaneous TID Not-Taking Social History Tobacco Use: Social History Observation Description Date Details (start date - stop date) Never Smoker NA - NA Tobacco Use/Smoking Question Answer Notes Patient is a nonsmoker Problems Problem Type SNOMED Code ICD Code Onset Dates Problem Status W/U Status Risk Notes Problem 768111618 Chronic kidney disease, stage 4 (severe) (N18.4) Active confirmed Problem 60436594 Essential hypertension (I10) Active confirmed Problem 182253943 Anemia (D64.9) Active confirmed Problem 69095623 Gout (M10.9) Active confirmed Problem 01218309 DM renal manif type II (E11.29) Active confirmed Problem Coronary arteriosclerosis (34513255) Coronary arteriosclerosis (I25.10) Active confirmed Problem Subdural intracranial hemorrhage (33739436) SDH (subdural hematoma) (I62.00) Active confirmed Problem 133519537 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) Active confirmed Problem 530259678 Chronic kidney disease, stage 3b (N18.32) Active confirmed Problem Secondary hypertension (95272272) Hypertension, 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 [address] [place] [phone] 11/23/2024 Triston Ramirez Chronic kidney disea se, stage 4 (severe) N18.4 ; Gout M10.9 ; Essential hypertension I10 and Coronary arteriosclerosis I25.10 [facility] [address] [place] [phone] 03/08/2025 Triston Ramirez Chronic kidney disea se, stage 4 (severe) N18.4 ; Essential hypertension I10 ; Chronic kidney disease, stage 3b N18.32 ; DM renal manif type II E11.29 and Anemia D64.9 [facility] [address] [place] [phone] 05/25/2024 Triston Ramirez Chronic kidney disea se, stage 3b N18.32 ; Gout M10.9 ; DM renal manif type II E11.29 and Anemia D64.9 [facility] [address] [place] [address] 08/18/2024 Triston [facility] [place] [address] [place] [address] 01/25/2025 Triston Ramirez Chronic kidney disea se, stage 4 (severe) N18.4 Assessments Encounter Date Diagnosis (ICD Code) Assessment Notes Treatment Notes Treatment Clinical Notes Section Notes 05/25/2024 Chronic kidney disease, stage 3b (ICD-10 - N18.32) Cr is stable in the CKD 3b range Continue lisinopril and HCTZ for management of her htn, edema, and albuminuria Continue allopurinol for gout prevention Continue Ozempic for FSBS control and wt loss Avoid all NSAIDs and IV contrast Albuminuria remains mild No UTI symptoms at this time, no need for abx, WBCs present on UA Encourage compression and elevation to help with LE edema Continue iron supplement, Hgb is improving 05/25/2024 Gout (ICD-10 - M10.9) 07/07/2024 Other seborrheic keratosis (ICD-10 - L82.1) 11/23/2024 Chronic kidney disease, stage 4 (severe) (ICD-10 - N18.4) 79 yo F with htn, DM, and CKD that is approaching the CKD 4 range F/U with cardiology as scheduled for additional planned PCI Dsicussed the risks of ERNESTINE associated with iodinated contrast Avoid all NSAID use Conitnue current antihypertensive and diuretic regimen 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 at 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 time Electrolytes are OK She needs to bring in an updated medication list, she reports recent changes but she is unsure what she is taking Encourage low Na diabetic diet OK to transfuse as needed to keep Hgb > 8 Continue allopurinol for gout prevention 11/23/2024 Gout (ICD-10 - M10.9) 03/08/2025 Chronic kidney disease, stage 4 (severe) (ICD-10 - N18.4) 79 yo F with cardiorenal issues, chronic anemia, and advanced CKD 4 She is developing volume overload since stopping her loop diuretic Start torsemide 10mg po daily and monitor GFR and electrolytes closely Encourage low Na diet MARIIA-I was stopped due to declining GFR May need to consider SENIOR PRODUCT MARKETING MANAGER if unable to control her volume status and maintain GFR Aviod NSAIDs and IV contrast Encourage good DM control F/U with cardiology for CAD management F/U with H/O for her anemia management 03/08/2025 Essential hypertension (ICD-10 - I10) 03/08/2025 Chronic kidney disease, stage 3b (ICD-10 - N18.32) 01/25/2025 Chronic kidney disease, stage 4 (severe) (ICD-10 - N18.4) 03/08/2025 DM renal manif type II (ICD-10 - E11.29) 11/23/2024 Essential hypertension (ICD-10 - I10) 07/07/2024 Other follicular cysts of the skin and subcutaneous tissue (ICD-10 - L72.8) 05/25/2024 DM renal manif type II (ICD-10 - E11.29) 05/25/2024 Anemia (ICD-10 - D64.9) 07/07/2024 Epidermal cyst (ICD-10 - L72.0) 11/23/2024 Coronary arteriosclerosis (ICD-10 - I25.10) 03/08/2025 Anemia (ICD-10 - D64.9) 07/07/2024 Other melanin hyperpigmentation (ICD-10 - L81.4) 07/07/2024 Actinic keratosis (ICD-10 - L57.0) Plan Of Treatment Pending Test Test Name Order Date UA (URINALYSIS, COMPLETE) 07/23/2016 UA (URINALYSIS, COMPLETE) 05/25/2024 UA (URINALYSIS, COMPLETE) 11/23/2024 UA (URINALYSIS, COMPLETE) 03/08/2025 ALBUMIN, BLOOD 03/08/2025 ALBUMIN, BLOOD 11/23/2024 ALBUMIN, BLOOD 05/25/2024 ALBUMIN, BLOOD 05/13/2023 ALBUMIN, BLOOD 07/23/2016 ALBUMIN, BLOOD 02/04/2017 MAGNESIUM 02/04/2017 MAGNESIUM 07/23/2016 MAGNESIUM 05/13/2023 MAGNESIUM 05/25/2024 MAGNESIUM 11/23/2024 MAGNESIUM 03/08/2025 CBC NO DIFF 03/08/2025 CBC NO DIFF 11/23/2024 CBC NO DIFF 05/25/2024 CBC NO DIFF 05/13/2023 CBC NO DIFF 07/23/2016 CBC NO DIFF 02/04/2017 BMP (BASIC MET PANEL - W/GFR) 02/04/2017 BMP (BASIC MET PANEL - W/GFR) 07/23/2016 BMP (BASIC MET PANEL - W/GFR) 05/13/2023 BMP (BASIC MET PANEL - W/GFR) 05/25/2024 MICROALBUMIN with ALB/CREAT RATIO, URINE (MALB)) 07/23/2016 MICROALBUMIN with ALB/CREAT RATIO, URINE (MALB)) 05/25/2024 MICROALBUMIN with ALB/CREAT RATIO, URINE (MALB)) 11/23/2024 PHOSPHORUS 05/25/2024 PHOSPHORUS 11/23/2024 PHOSPHORUS 05/13/2023 PHOSPHORUS 07/23/2016 PHOSPHORUS 02/04/2017 PHOSPHORUS 03/08/2025 PTH INTACT (PARATHYROID HORMONE) 017 PTH INTACT (PARATHYROID HORMONE) 025 URIC ACID 02/04/2017 URIC ACID 05/13/2023 URIC ACID 03/08/2025 VITAMIN D, 25 LEVEL (TOTAL) 02/04/2017 VITAMIN D, 25 LEVEL (TOTAL) 11/23/2024 BMP w/GFR 11/23/2024 URIC ACID 11/23/2024 RENAL PANEL 03/08/2025 MICROALBUMIN w ASSISTANT PROFESSOR OF LIFE SCIENCES RATIO 03/08/2025 Insurance Providers Payer Name Payer Address Payer Phone Subscriber Number Group Number Insured Name Patient Relationship to Insured Coverage Start Date Coverage End Date [employer] MED[employer] ADV PLAN [address] [place] [address] [id number] Irma Caceres Self - patient is the insured 3 Medical (General) History Medical History History ICD Code History of diabetes mellitus History of gout History of hypertension History of chronic kidney disease, stage 3 History of arrhthmia Chronic kidney disease, stage III (moder ate) N18.3 Surgical History Surgery Date(Month/Year) History of hernia repair History of appendectomy History of hysterectomy Surgical / procedural history tumors removed from ovaries, heel spur surgery, hand surgery, 2 biopsies on breast, ear surgery, 3 rotar cuff surgeries arthritis in left foot Hospitalization History Reason Date(Month/Year) pneumonia and blood transfusion 08/2024 heart attack 07/2024 [facility] Inpatient C-Diff 03/28- 03/31/23 [facility] Inpatient 04/05-04/10/23 ER- Hip issues 05/21 ER- Diarrhea 11 days, admitted 3 days 06/06/21
--- OUTSIDE RECORDS SUMMARY | 2025-05-20 07:33 | XMS_ITS | Encounter Summary ---
Author Organization [email or web address] Address [id number] [address] [place] [address] Care Team Providers Care Cable Installer Name Role Phone Dagmar Hernandez INFORMATION SECURITY DIRECTOR-MRI SPECIAL PROCEDURES TECHNOLOGIST Primary Care Pro vider Encounter Details Date Type Department Care Team (Late st Contact Info) Description 01/19/2025 Orders Only Heather Miller [facility] - Medical Oncology [address] [place] [address] Daniella Montes De Oca, ANALI Social History Tobacco Use Types Packs/Day Years Used Date Smoking Tobacco: Former Cigarettes 0.5 10 1 975 - 1985 Smokeless Tobacco: Never Alcohol Use Standard Drinks/Week Comments Not Currently 0 (1 standard drink = 0.6 oz pur e alcohol) [facility] Utilities Answer Date Recorded In the past 12 months has [employer], gas, oil, or water [employer] threatened to shut off services in your [...] like food, housing, medical care, and heating? Patient declined 01/04/2025 PHQ-2 Answer Date Recorded Total Score 2 [...] medical appointments or from getting medications? No 03/2025 In the past 12 months, has l ack of transportation kept you from meetings, work, or from getting things needed for daily living? No 01/04/2025 Housing Instability Answer Date Recorde d Are [...] got money to buy more. Never True 01/04/2025 Within the past 12 months th e food we bought just didn't last and we didn't have money to get more. Never True 01/04/2025 Purpose - Life Answer Date Recorded Purpose [...] Description 05/21/2025 9:30 AM EDT Hospital Encounter [facility] - Pet Imaging [address] [place] [address] 05/25/2025 10:15 AM EDT Office Visit [facility] [address] [place] [address] Kelvin Myles MD [address] [place] [phone] 06/03/2025 11:15 AM EDT Office Visit Heather Lynn [facility] - Medical Oncology [address] [place] [address], [place] [phone] Rowdy Riley MD [address] [place] [address] 07/29/2025 3:30 PM EDT Office Visit [facility] Neurology, A Department of [facility] [address] [phone] Janice Bhat INFORMATION SECURITY DIRECTOR-MRI SPECIAL PROCEDURES TECHNOLOGIST [address] [address] 07/30/2025 2:30 PM EDT Office Visit Heather Lynn [facility] - Medical Oncology [address] [place] [address], [place] [phone] Rowdy Riley MD [address] [facility] [address] [address] documented as of this encounter Visit Diagnoses Not on filedocumented in this encounter Additional Health Concerns Assessment Noted Time PHQ-9 Depression Total Score: 2 12/16/19 2:58 PM EDT documented as of this encounter Care Teams Cable Installer Relationship Specialty Start Date End Date Dagmar Hernandez, INFORMATION SECURITY DIRECTOR-MRI SPECIAL PROCEDURES TECHNOLOGIST [address] [place] [address] PCP - General Nurse Practitioner 06/19/24 documented as of this encounter
--- OUTSIDE RECORDS SUMMARY | 2025-05-20 07:33 | XMS_ITS | Encounter Summary ---
Author Organization [employer] Address [id number] [address] [place] [address] Care Team Providers Care Border Patrol Officer Name Role Phone Dagmar Hernandez MASKING MACHINE OPERATOR-APPLE SOLUTIONS CONSULTANT Primary Care Pro vider Encounter Details Date Type Department Care Team (Late st Contact Info) Description 05/01/2023 Telephone [facility] - Family Medicine [address] [place] [phone] Jess Gonzales CMA Social History Tobacco Use Types Packs/Day Years Used Date Smoking Tobacco: Former Cigarettes 0.5 10 1 975 - 1985 Smokeless Tobacco: Never Alcohol Use Standard Drinks/Week Comments Not Currently 0 (1 standard drink = 0.6 oz pur e alcohol) [facility]-[facility] Answer Date Recorded Q1: How often do you have a drink containing alcohol? Never 2023 Q2: How many drinks containi ng alcohol do you have on a typical day when you are drinking? Patient does not drink Q3: How often do you have si x or more drinks on one occasion? Never 2023 PHQ-2 Answer Date Recorded Total Score 0 05/01/2023 Childcare Answer Date Recorded Childcare Unknown 03/11/2019 [...] encounter Miscellaneous Notes * Telephone Encounter - Jess Gonzales CMA - 05/01/2023 4:48 PM EDT This patient is scheduled for her Colonoscopy and EGD for Ischemic Bowel on May 22 at 9:45am. She does not need a prep because she is doing the Miralax one. documented in this encounter Plan of Treatment Upcoming Encounters Date Type Department Care Team (Late st Contact Info) Description 05/21/2025 9:30 AM EDT [facility] - Pet Imaging [address] [place] [phone] 05/25/2025 10:15 AM EDT [facility] [address] [place] [phone] Kelvin Myles MD [address] [place] [phone] 06/03/2025 11:15 AM EDT Office Visit Heather [facility] - Medical Oncology [address] [place] [phone] Rowdy Riley MD [address] [place] [address] 07/29/2025 3:30 PM EDT Office Visit [facility], A Department of [facility] [address] [phone] Janice Bhat APRN-DWIGHT [address] [address] 07/30/2025 2:30 PM EDT Office Visit [facility] - Medical Oncology [address] [place] [address] Rowdy Riley MD [address] [facility] [address] [place] [address] documented as of this encounter Visit Diagnoses Not on filedocumented in this encounter Additional Health Concerns Infection Onset Date Last Indicated Resolved Time COVID-19 Rule-Out 09/18/2024 09/18/2024 09/18/2024 11:11 PM EST COVID-19 Rule-Out Comment:Results negative as of 09/18/24 09/18/2024 09/18/2024 09/19/2024 8:[address] Assessment Noted Time PHQ-9 Depression Total Score: 0 05/01/20 23 2:26 PM EDT documented as of this encounter Care Teams Border Patrol Officer Relationship Specialty Start Date End Date Dagmar Hernandez, MASKING MACHINE OPERATOR-APPLE SOLUTIONS CONSULTANT [address] [place] [phone] PCP - General Nurse Practitioner 06/19/24 documented as of this encounter
--- OUTSIDE RECORDS SUMMARY | 2025-05-20 07:33 | XMS_ITS | Encounter Summary ---
Author Organization [facility] Address [id number] [address] [place] [address] Care Team Providers Care Negative Cutter Name Role Phone Dagmar Hernandez ADULT DAYCARE COORDINATOR-SCORING MACHINE OPERATOR Primary Care Pro vider Encounter Details Date Type Department Care Team (Late st Contact Info) Description 08/09/2022 Orders Only [facility] [address] [phone] External, Scanning Provider Social History Tobacco Use Types Packs/Day Years Used Date Smoking Tobacco: Former Cigarettes Q uit: 1985 Smokeless Tobacco: Never Alcohol Use Standard Drinks/Week Comments Not Currently 0 (1 standard drink = 0.6 oz pur e alcohol) PHQ-2 Answer Date Recorded Total Score 0 06/28/2022 Childcare Answer Date Recorded Childcare Unknown 03/11/2019 Employment Answer Date Recorded Employment Unknown 03/11/2019 Purpose - Life Answer Date Recorded Purpose and direction in life Unknown Comments No Sex and Gender Information Value Date Recorded Sex Assigned at Not on file Legal Sex Female 11:23 AM EDT Gender Identity Not on file Sexual Orientation Not on file COVID-19 Exposure Response Date Recorded In the last month, have you been in contact with someone who was confirmed or suspected to have Coronavirus / COVID-19? Unable to assess 07/31/2022 11:14 AM EDT documented as of this encounter Plan of Treatment Upcoming Encounters Date Type Department Care Team (Late st Contact Info) Description 05/21/2025 9:30 AM EDT [facility] - Pet Imaging [address] [place] [phone] 05/25/2025 10:15 AM EDT Office Visit [facility] [address] [place] [phone] Kelvin Myles MD [address] [place] [phone] 06/03/2025 11:15 AM EDT Office Visit Heather Lynn [facility] - Medical Oncology [address] [place] [phone] Rowdy Riley MD [address] [place] [address] 07/29/2025 3:30 PM EDT Office Visit [facility], A Department of [facility] [address] [phone] [facility] [address] [phone] 07/30/2025 2:30 PM EDT Office Visit Heather Lynn [facility] - Medical Oncology [address] [place] [phone] Rowdy Riley MD [address] [place] [address] documented as of this encounter Procedures Procedure Name Priority Date/Time Associated Diagnosis Comments MULTIPLE LABS Routine 04/30/2022 documented in this encounter Results * Multiple labs (04/30/2022) us Scanning Provider External [place] IMAGING Final Result MANUALLY TRANSCRIBED RESULTS documented in this encounter Visit Diagnoses Not [...] Noted Time PHQ-9 Depression Total Score: 0 06/28/20 22 1:00 PM EDT documented as of this encounter Care Teams Negative Cutter Relationship Specialty Start Date End Date Dagmar Hernandez, ADULT DAYCARE COORDINATOR-SCORING MACHINE OPERATOR [address] [place] [address] PCP - General Nurse Practitioner 06/19/24 documented as of this encounter
--- OUTSIDE RECORDS SUMMARY | 2025-05-20 07:33 | XMS_ITS | Encounter Summary ---
Author Organization [facility] CloudMedx s tem Address [facility]-[id number] [address] [place] [address] Care Team Providers Care Teaching Dietitian Name Role Phone Dagmar Hernandez MILITARY COOK-DEAN OF MEN Primary Care Pro vider Encounter Details Date Type Department Care Team (Late st Contact Info) Description 08/20/2024 Orders Only [facility] [place] [address] [place] [address] Ref Prov, [place] [address] Social History Tobacco Use Types Packs/Day Years [...] Answer Date Recorded Total Score 2 12/16/2023 PRAPARE - Transportation Answer Date Re corded In the past 12 months, has l ack of transportation kept you from medical appointments or from getting medications? No 03/2024 In the past 12 months, has l ack of transportation kept you from meetings, work, or from getting things needed for daily living? No 01/05/2024 Housing Instability Answer Date Recorde d Are you worried or concerned that in the next two months you may not have stable housing that you own, rent or stay in as a part of a household? No 01/05/2024 Childcare Answer Date Recorded Childcare Unknown 03/11/2019 Employment Answer Date Recorded Employment Unknown 03/11/2019 Hunger Screening Answer Date Recorded Within the past 12 months we worried whether our food would run out before we got money to buy more. Never True 07/30/2024 Within the past 12 months th e food we bought just didn't last and we didn't have money to get more. Never True 07/30/2024 Purpose - Life Answer Date Recorded Purpose [...] Description 05/21/2025 9:30 AM EDT Hospital Encounter [facility] - Pet Imaging [address] [place] [phone] 05/25/2025 10:15 AM EDT Office Visit [facility] General [facility] [address] [place] [phone] Kelvin Myles MD [address] [place] [address] 06/03/2025 11:15 AM EDT Office Visit Heather Lynn [facility] - Medical Oncology [address] [place] [phone] Rowdy Riley MD [address] [facility] [address] [place] [address] 07/29/2025 3:30 PM EDT Office Visit [facility] [address] [address] Janice Bhat MILITARY COOK-DEAN OF MEN [address] [address] 07/30/2025 2:30 PM EDT Office Visit Heather Miller [facility] - Medical Oncology [address] [place] [address] Rowdy Riley MD [address] [facility] [address] [place] [address] documented as of this encounter Procedures Procedure Name Priority Date/Time Associated Diagnosis Comments XR CHEST 1 VW Routine 08/20/2024 10:22 AM EST documented in this encounter Results * X-ray chest 1 view (08/20/2024 10:22 AM EST) Anatomical Region Laterality Modality Body, Chest N/A Computed Radiogr aphy us Not In System Ref Prov IMG DIAGNOSTIC IMAGING OR DERABLES Final Result documented in this encounter Visit [...] documented as of this encounter Care Teams Teaching Dietitian Relationship Specialty Start Date End Date Dagmar Hernandez, MILITARY COOK-DEAN OF MEN [address] [place] [address] PCP - General Nurse Practitioner 06/19/24 documented as of this encounter
--- OUTSIDE RECORDS SUMMARY | 2025-05-20 07:33 | XMS_ITS | Clinical Summary ---
Author Organization [facility] Healthcare Address [address] [place] [address] Care Team Providers Care Ski Technician Name Role Phone Lucy Rubalcava MD Unavailable Sheron Hernández MD Primary Care Provider [phone] Allergies Active Allergy Reactions Criticality Noted Date Comments Sulfamethoxazole-Trimethoprim GI intolerance Codeine Shortness of breath High 10/08/2023 Medications Semaglutide (OZEMPIC, 0.25 OR 0.5 MG/DOSE, SC) Inject under the skin Active pregabalin (Lyrica) 75 MG capsule Take 75 mg by mouth in the morning and 75 mg before bedtime. Active hydroCHLOROthia zide (HYDRODiuril) 25 MG tablet Take 25 mg by mouth in the morning. Active rosuvastatin (Crestor) 10 MG tablet Take 10 mg by mouth in the morning. Active metoprolol succinate XL (Toprol-XL) 25 MG 24 hr tablet Take by mouth Do not crush or chew. Active lisinopril 20 MG tablet Take by mouth Daily Active oxybutynin XL (Ditropan-XL) 5 MG 24 hr tablet Take 5 mg by mouth in the morning. Do not crush, chew, or split.. Active ferrous sulfate 325 (65 Fe) MG tablet Take 325 mg by mouth in the morning. Take with meals. Active cyanocobalamin (Vitamin B-12) 1000 MCG tablet Take 1,000 mcg by mouth in the morning. Active Insulin Lispro (HUMALOG KWIKPEN SC) Inject under the skin Active aspirin 81 MG EC tablet Take 81 mg by mouth in the morning. Active pantoprazole (ProtoNix) 40 MG EC tablet Take 40 mg by mouth in the morning. Take before meals. Do not crush, chew, or split.. Active cholecalciferol (Vitamin D-3) 125 MCG (5000 UT) capsule Take 5,000 Units by mouth in the morning. Active Insulin Degludec (TRESIBA SC) Inject under the skin Active allopurinol (Zyloprim) 300 MG tablet Take by mouth Active acetaminophen (Tylenol 8 Hour) 650 MG ER tablet Take 650 mg by mouth every 8 (eight) hours if needed for mild pain Do not crush, chew, or split. Active Active Problems No known active problems Family History Medical History Relation Name Comments Arthritis Mother Betina jackman Diabetes Mother Betina jackman Hypertension Mother Betina jackman Kidney disease Mother Betina jackman Cancer Mother's Brother Betina Jackman and Ja Underwood levar Accidental Sister Trinity jackman Relation Name Status Comments Mother Betina jackamn Mother's Brother Betina Jackman and Ja Pagan Sister Trinity jackman Social History Tobacco Use Types Packs/Day Years Used Date Smoking Tobacco: Never Smokeless Tobacco: Never Tobacco Cessation:Counseling Given: Not Answered Alcohol Use Standard Drinks/Week Comments Never 0 (1 standard drink = 0.6 oz pur e alcohol) Comments Unknown Sex and Gender Information Value Date Recorded Sex Assigned at Not on file Legal Sex Female 6:42 PM EDT Gender Identity Not on file Sexual Orientation Not on file Last Filed Vital Signs Vital Sign Reading Time Taken Comments Blood Pressure 145/65 08/05/2019 12:00 PM EST Pulse - - Temperature - - Respiratory Rate - - Oxygen Saturation - - Inhaled Oxygen Concentration - - Weight 107 kg (236 lb) 10/08/2023 3:57 PM EST Height 157.5 cm (5' 2 ) 10/08/2023 3:57 PM EST Body Mass Index 43.16 10/08/2023 3:57 PM EST Plan of Treatment Not on file Insurance [employer] Care Teams Ski Technician Relationship Specialty Start Date End Date Sheron Hernández MD [address] [place], [place] [phone] PCP - General Pediatrics 10/08/23 Lucy Rubalcava MD [address] [place], [place] [phone] Referring Physician Family Medicine 09/06/23
--- OUTSIDE RECORDS SUMMARY | 2025-05-20 07:33 | XMS_ITS | Encounter Summary ---
Author Organization [employer] Sys tem Address [facility] [id number] [address] [place] [address] Care Team Providers Care Video Photographer Name Role Phone Dagmar Hernandez CHIP DRIER-WATCH TRAIN INSPECTOR Primary Care Pro vider Reason for Visit * Reason Comments Med Refill Encounter Details Date Type Department Care Team (Late st Contact Info) Description 07/20/2024 Refill [facility] [address] [phone] Gil Power APRN-CNP [address] [place] [address] Med Refill Social History Tobacco Use Types [...] got money to buy more. Never True 06/15/2024 Within the past 12 months th e food we bought just didn't last and we didn't have money to get more. Never True 06/15/2024 Purpose - Life Answer Date Recorded Purpose and direction in life Unknown Comments No Sex and Gender Information Value Date Recorded Sex Assigned at Not on file Legal Sex Female 11:23 AM EDT Gender Identity Not on file Sexual Orientation Not on file documented as of this encounter Miscellaneous Notes * Telephone Encounter - Lola Gavin LPN - 07/20/2024 12:13 PM EDT Refilled 07/08/24 documented in this encounter Plan of Treatment Upcoming Encounters Date Type Department Care Team (Late st Contact Info) Description 05/21/2025 9:30 AM EDT Hospital Encounter [facility] - Pet Imaging [address] [place] [address] 05/25/2025 10:15 AM EDT Office Visit [facility] [address] [place] [phone] Kelvin Myles MD [address] [place] [phone] 06/03/2025 11:15 AM EDT Office Visit Heather Lynn [facility] - Medical Oncology [address] [place], [place] [phone] Rowdy Riley MD [address] [facility] [address] [place] [address] 07/29/2025 3:30 PM EDT [facility] [address] [address] Janice Bhat APRN-WATCH TRAIN INSPECTOR [address] [address] 07/30/2025 2:30 PM EDT Office Visit Heather Lynn [facility] - Medical Oncology [address] [place], [place] [phone] Rowdy Riley MD [address] [facility] [address] [place] [address] documented as of this encounter Visit Diagnoses Diagnosis Other hyperlipidemia documented in this encounter Additional Health Concerns Infection Onset Date Last Indicated Resolved Time COVID-19 Rule-Out 09/18/2024 09/18/2024 09/18/2024 11:11 PM EST COVID-19 Rule-Out Comment:Results negative as of 09/18/24 09/18/2024 09/18/2024 09/19/2024 8:[address] Assessment Noted Time PHQ-9 Depression Total Score: 2 12/16/19 2:58 PM EDT documented as of this encounter Care Teams Video Photographer Relationship Specialty Start Date End Date Dagmar Hernandez, CHIP DRIER-WATCH TRAIN INSPECTOR [address] [facility] [place] [phone] PCP - General Nurse Practitioner 06/19/24 documented as of this encounter
--- OUTSIDE RECORDS SUMMARY | 2025-05-20 07:33 | XMS_ITS | Encounter Summary ---
Author Organization [facility] tem Address [facility] [place] [id number] [address] [place] [address] Care Team Providers Care Repair Mechanic Name Role Phone Dagmar Hernandez FIELD ARTILLERY OPERATIONS MAN-AFFILIATE MARKETING COORDINATOR Primary Care Pro vider Encounter Details Date Type Department Care Team (Late Contact Info) Description 05/29/2021 Orders Only [facility] [address] [phone] External, Scanning Provider Social History Tobacco Use [...] Description 05/21/2025 9:30 AM EDT [facility] [address] [place] [address] 05/25/2025 10:15 AM EDT Office Visit [facility] [address] [place] [phone] Kelvin Myles MD [address] [place] [phone] 06/03/2025 11:15 AM EDT Office Visit Heather Lynn [facility] - Medical Oncology [address] [place] [phone] Rowdy Riley MD [address] [facility] [place] [address] 07/29/2025 3:30 PM EDT [facility] [address] [address] Janice Bhat [facility] [address] [address] 07/30/2025 2:30 PM EDT Office Visit Heather Lynn [facility] - Medical Oncology [address] [place] [phone] Rowdy Riley MD [address] [place] [address] documented as of this encounter Procedures Procedure Name Priority Date/Time Associated Diagnosis Comments MULTIPLE LABS Routine 05/11/2021 documented in this encounter Results * Multiple labs (05/11/2021) us Scanning Provider External [place] [facility] Final Result MANUALLY TRANSCRIBED RESULTS documented in this encounter Visit Diagnoses Not on filedocumented in this encounter Additional Health Concerns Infection Onset Date Last Indicated Resolved Time Enteric Rule-Out 06/06/2021 06/06/202106/08/2021 8:24 AM EDT Enteric Rule-Out 03/29/2023 03/29/2023 03/30/2023 3:07 PM EDT C. Difficile 03/29/2023 03/29/2023 04/15/2023 11:1 2 PM EDT COVID-19 Rule-Out 09/18/2024 09/18/2024 09/18/2024 11:11 PM EST COVID-19 Rule-Out Comment:Results negative as of 09/18/24 09/18/2024 09/18/2024 09/19/2024 8:[address] Assessment Noted Time PHQ-9 Depression Total Score: 0 03/20/20 2:00 PM EDT documented as of this encounter Care Teams Repair Mechanic Relationship Specialty Start Date End Date Dagmar Hernandez, FIELD ARTILLERY OPERATIONS MAN-AFFILIATE MARKETING COORDINATOR [address] [place] [phone] PCP - General Nurse Practitioner 06/19/24 documented as of this encounter
--- OUTSIDE RECORDS SUMMARY | 2025-05-20 07:33 | XMS_ITS | Clinical Summary ---
Author Organization [facility] Address [address] [place], [place] [address] Care Team Providers Care Sustainability Analyst Name Role Phone Triston Coyle MD Primary Care Provider [phone] Triston Coyle MD Unavailable [phone] Allergies Active Allergy Reactions Criticality Noted Date Comments Sulfamethoxazole-Trimethoprim GI Upset 2016 Codeine Shortness of Breath 01/21/2017 Medications allopurinol (ZYLOPRIM) 300 mg tablet Take 300 mg by mouth twice daily. Active aspirin, enteric coated (ASPIRIN, ENTERIC COATED) 81 mg EC tablet Take 81 mg by mouth once daily. Active glipiZIDE (GLUCOTROL) 10 mg tablet Take 10 mg by mouth twice daily before meals. Active furosemide (LASIX) 20 mg tablet Take 20 mg by mouth once daily. Active lisinopril (ZESTRIL, PRINIVIL) 20 mg tablet Take 20 mg by mouth once daily. Active pregabalin (LYRICA) 100 mg capsule Take 100 mg by mouth twice daily. Active INSULIN NPH HUM/REG INSULIN HM (NOVOLIN 70/30 SUBCUTANEOUS) Inject subcutaneou sly. Active ranitidine (ZANTAC) 150 mg tablet Take 150 mg by mouth twice daily. Active simvastatin (ZOCOR) 40 mg tablet Take 40 mg by mouth daily at bedtime. Active metoprolol succinate ER (TOPROL XL) 25 mg 24 hr tablet Take 25 mg by mouth twice daily. Active Active Problems Problem Noted Date Diagnosed Date Acquired spondylolisthesis 01/21/2017 S/P lumbar discectomy 09/30/2011 Overview (01/21/2017): LEFT L5-S1 High cholesterol High blood pressure Diabetes Back pain Arthritis Anemia Arthritis of right hip Former smoker BMI 40.0-44.9, adult Gout Family History Medical History Relation Comments Cancer Brother Heart Failure Brother Stroke Brother Arthritis Mother Cancer Mother Diabetes Mother Hypertension Mother Relation Status Comments Brother Mother Social History Tobacco Use Types Packs/Day Years Used Date Smoking Tobacco: Former Cigarettes 0.2 8 Alcohol Use Standard Drinks/Week Comments No 0 (1 standard drink = 0.6 oz pur e alcohol) Comments No Sex and Gender Information Value Date Recorded Sex Assigned at Not on file Legal Sex Female 11:45 AM EDT Gender Identity Not on file Sexual Orientation Not on file Occupation Industry Job Start Date Job End Date RETIRED Not on file Not on file Not on file Last Filed Vital Signs Vital Sign Reading Time Taken Comments Blood Pressure 127/65 01/21/2017 2:20 PM EDT Pulse 66 01/21/2017 2:20 PM EDT Temperature - - Respiratory Rate 20 01/21/2017 2:20 PM EDT Oxygen Saturation - - Inhaled Oxygen Concentration - - Weight 110.7 kg (244 lb) 01/21/2017 2:2 0 PM EDT Height 162.6 cm (5' 4 ) 01/21/2017 2:20 PM EDT SELF REPORT HT/WT Body Mass Index 41.88 01/21/2017 2:20 PM EDT Plan of Treatment Health Maintenance Due Date Last Done Comments Anxiety Screening 1964 Depression Screening 1964 DTaP,Tdap,Td Vaccine (1 - Tdap) 1965 Diabetes Screening 1991 Pneumococcal Vaccine: 50+ (1 of 1 - PCV) 1996 Shingrix Vaccine (1 of 2) 1996 Bone Density Screening 2011 RSV Vaccine (1 - 1-dose 75+ series) 2021 Advance Directive Discussion 09/30/2024 Influenza Vaccine (#1) 2025 Insurance [employer] Care Teams Sustainability Analyst Relationship Specialty Start Date End Date Triston Coyle MD PCP - General Family Medicine 01/15/17 ImmTriston MD Family Medicine 01/15/17
--- OUTSIDE RECORDS SUMMARY | 2025-05-20 07:33 | XMS_ITS | Encounter Summary ---
Author Organization [employer] Address [facility][id number] [address] [place] [address] Care Team Providers Care Applied Psychology Chair Name Role Phone Dagmar Hernandez CUSTOMER SERVICE AGENT-TOWN MANAGER Primary Care Pro vider Encounter Details Date Type Department Care Team (Late st Contact Info) Description 05/24/2020 Refill [facility] [address] [phone] Sue De La Rosa, RN Social History Tobacco Use Types Packs/Day Years Used Date Smoking Tobacco: Former Smokeless Tobacco: Never Alcohol Use Standard Drinks/Week Comments Yes 0 (1 standard drink = 0.6 oz pur e alcohol) PHQ-2 Answer Date Recorded Total Score 0 05/17/2020 Childcare Answer Date Recorded Childcare Unknown 03/11/2019 Employment Answer Date Recorded Employment Unknown 03/11/2019 Comments No Sex and Gender Information Value Date Recorded Sex Assigned at Not on file Legal Sex Female 11:23 AM EDT Gender Identity Not on file Sexual Orientation Not on file COVID-19 Exposure Response Date Recorded In the last month, have you been in contact with someone who was confirmed or suspected to have Coronavirus / COVID-19? No / Unsure 05/17/2020 1:20 PM EDT documented as of this encounter Miscellaneous Notes * Telephone Encounter - Sue De La Rosa RN - 05/24/2020 10:28 AM EDT Change lipitor to Crestor and repeat in 3 months. Sue De La Rosa RN 05/24/20 1028 * Telephone Encounter - Sue De La Rosa RN - 05/24/2020 10:28 AM EDT LM reminding to have labs done anytime soon documented in this encounter Plan of Treatment Upcoming Encounters Date Type Department Care Team (Late st Contact Info) Description 05/21/2025 9:30 AM EDT Hospital Encounter [facility] Heather Miller [facility] - Pet Imaging [address] [place] [phone] 05/25/2025 10:15 AM EDT Office Visit [facility] Physicians General Surgery [address] [place] [phone] Kelvin Myles MD [address] [place] [phone] 06/03/2025 11:15 AM EDT Office Visit Heather Lynn [facility] - Medical Oncology [address] [place] [phone] Rowdy Riley MD [address] [place] [address] [address] [place] [address] 07/29/2025 3:30 PM EDT Office Visit [facility], A Department of [facility] [address] [phone] Janice Bhat APRN-TOWN MANAGER [address] [phone] 07/30/2025 2:30 PM EDT Office Visit Heather Lynn [facility] - Medical Oncology [address] [place] [address], [place] [phone] Rowdy Riley MD [address] [facility] [address] [place], [place] [phone] documented as of this encounter Results * Bilirubin, total (10/12/2020) 10/12/2020 [employer] CUSTOMER SERVICE AGENT-Orbiter LAB BLOOD ORDERABLES Final Result Performing Organization Address [facility] de Phone Number SUNQUEST * ALT (10/12/2020) 10/12/2020 [employer] CUSTOMER SERVICE AGENT-Orbiter LAB BLOOD ORDERABLES Final Result Performing Organization Address [facility] de Phone Number SUNQUEST * Lipid panel (10/12/2020) External Cholesterol 93 [employer] External Cholesterol:Hdl 3.7 [employer] External Hdl Cholesterol 25 [employer]QUEST External Ldl (Calc) 40 [employer]QUEST External Triglycerides 138 [employer]QUEST External Very Low Lipoprotein 28 SUNQUEST 10/12/2020 [employer] CUSTOMER SERVICE AGENT-Orbiter LAB BLOOD ORDERABLES Final Result Performing Organization Address [facility] de Phone Number SUNQUEST [...] documented as of this encounter Care Teams Applied Psychology Chair Relationship Specialty Start Date End Date Dagmar Hernandez, CUSTOMER SERVICE AGENT-TOWN MANAGER [address] [place] [address] PCP - General Nurse Practitioner 06/19/24 documented as of this encounter
--- OUTSIDE RECORDS SUMMARY | 2025-05-20 07:33 | XMS_ITS | Encounter Summary ---
Author Organization [employer] s tem Address [facility] [place]-[id number] [address] [place] [address] Care Team Providers Care Shell Core And Molding Supervisor Name Role Phone Dagmar Hernandez MOLECULAR PATHOLOGIST-SWEEPER DRIVER Primary Care Pro vider Encounter Details Date Type Department Care Team (Late st Contact Info) Description 11/28/2023 Orders Only Heather Miller [facility] - Medical Oncology [address] [place] [address] Rowdy Riley MD [address] [place] [address] [address] [place], [place] [phone] Social History Tobacco Use Types Packs/Day Years [...] PHQ-2 Answer Date Recorded Total Score 0 06/06/2023 Childcare Answer Date Recorded Childcare Unknown 03/11/2019 Employment Answer Date Recorded Employment Unknown 03/11/2019 Hunger Screening Answer Date Recorded Within the past 12 months we worried whether our food would run out before we got money to buy more. Never True 09/26/2023 Within the past 12 months th e food we bought just didn't last and we didn't have money to get more. Never True 09/26/2023 Purpose - Life Answer Date Recorded Purpose [...] Description 05/21/2025 9:30 AM EDT [facility] - Pet Imaging [address] [place] [phone] 05/25/2025 10:15 AM EDT Office Visit [facility] Physicians General Surgery [address] [place] [phone] Kelvin Myles MD [address] [place] [phone] 06/03/2025 11:15 AM EDT Office Visit Heather L [facility] - Medical Oncology [address] [place] [phone] Rowdy Riley MD [address] [place] [address] 07/29/2025 3:30 PM EDT Office Visit [facility], A Department of [facility] [address] [phone] Janice Bhat, CARMELLA-DWIGHT [address] [address] 07/30/2025 2:30 PM EDT Office Visit [facility] - Medical Oncology [address] [place] [address] Rowdy Riley MD [address] [facility] [address] [place] [address] documented as of this encounter Visit Diagnoses Not on filedocumented in this encounter Additional Health Concerns Infection Onset Date Last Indicated Resolved Time COVID-19 Rule-Out 09/18/2024 09/18/2024 09/18/2024 11:11 PM EST COVID-19 Rule-Out Comment:Results negative as of 09/18/24 09/18/2024 09/18/2024 09/19/2024 8:[address] Assessment Noted Time PHQ-9 Depression Total Score: 0 06/06/20 23 1:58 PM EDT documented as of this encounter Care Teams Shell Core And Molding Supervisor Relationship Specialty Start Date End Date Dagmar Hernandez, MOLECULAR PATHOLOGIST-SWEEPER DRIVER [address] [place] [phone] PCP - General Nurse Practitioner 06/19/24 documented as of this encounter
--- OUTSIDE RECORDS SUMMARY | 2025-05-20 07:33 | XMS_ITS | Encounter Summary ---
Author Organization [facility] Address [id number] [address] [place] [address] Care Team Providers Care Light Out Examiner Name Role Phone Dagmar Hernandez AIRLINE LOUNGE RECEPTIONIST-SHEET TAILER Primary Care Pro vider Reason for Visit * Reason Comments Med Change Request Encounter Details Date Type Department Care Team (Late st Contact Info) Description 11/29/2022 Refill [facility] [address] [facility] [address] [place] [address] Luis Granger MD [address] [facility] [address] [place] [address] Vitamin B12 deficiency Social History Tobacco Use Types Packs/Day Years Used Date Smoking Tobacco: Former Cigarettes Q uit: 1985 Smokeless Tobacco: Never Alcohol Use Standard Drinks/Week Comments Not Currently 0 (1 standard drink = 0.6 oz pur e alcohol) PHQ-2 Answer Date Recorded Total Score 0 11/29/2022 Childcare Answer Date Recorded Childcare Unknown 03/11/2019 [...] have Coronavirus / COVID-19? No / Unsure 11/29/2022 2:00 PM EST documented as of this encounter Plan of Treatment Upcoming Encounters Date Type Department Care Team (Late st Contact Info) Description 05/21/2025 9:30 AM EDT Hospital Encounter [facility] Heatherjacque Lynn [facility] - Pet Imaging [address] [place] [phone] 05/25/2025 10:15 AM EDT Office Visit [facility] [address] [place] [phone] Kelvin Myles MD [address] [place] [phone] 06/03/2025 11:15 AM EDT Office Visit Heatherjacque Lynn [facility] - Medical Oncology [address] [place] [phone] Rowdy Riley MD [address] [place] [address] 07/29/2025 3:30 PM EDT Office Visit [facility], A Department of [facility] [address] [address] Janice Bhat, CARMELLA-SHEET TAILER [address] [phone] 07/30/2025 2:30 PM EDT Office Visit Heather Angela Shane [facility] - Medical Oncology [address] [place] [phone] Rowdy Riley MD [address] [place] [address] documented as of this encounter Visit Diagnoses Diagnosis Vitamin B12 deficiency Other B-complex deficiencies documented in this encounter Additional Health Concerns Infection Onset Date Last Indicated Resolved Time Enteric Rule-Out 03/29/2023 03/29/2023 03/30/2023 3:07 PM EDT C. Difficile 03/29/2023 03/29/2023 04/15/2023 11:1 2 PM EDT COVID-19 Rule-Out 09/18/2024 09/18/2024 09/18/2024 11:11 PM EST COVID-19 Rule-Out Comment:Results negative as of 09/18/24 09/18/2024 09/18/2024 09/19/2024 8:[address] Assessment Noted Time PHQ-9 Depression Total Score: 0 11/30/19 23 2:15 PM EST documented as of this encounter Care Teams Light Out Examiner Relationship Specialty Start Date End Date Dagmar Hernandez, AIRLINE LOUNGE RECEPTIONIST-SHEET TAILER [address] [place] [address] PCP - General Nurse Practitioner 06/19/24 documented as of this encounter
--- OUTSIDE RECORDS SUMMARY | 2025-05-20 07:33 | XMS_ITS | Encounter Summary ---
Author Organization [facility] Address [id number] [address] [place] [address] Care Team Providers Care Doweling Machine Operator Name Role Phone Dagmar Hernandez ROLLER MAKER-COMMUTATOR UNDERCUTTER Primary Care Pro vider Reason for Referral * Consultation (Routine) - Closed Specialty Diagnoses / Procedures Referred By Jj t Referred To Contact Gastroenterology Diagnoses Ischemic bowel disease Annie [place] MD [address] [place] [address] Phone: tel: fax: [place] [address] [place] [address], [address] [place] [address] Phone: tel: fax: Referral ID Status Reason Start Date Expiration Date V isits Requested Visits Authorized [id number] Closed Specialty Services Required 05/27/2023 05/26/2024 1 1 Encounter Details Date Type Department Care Team (Late st Contact Info) Description 05/27/2023 Orders Only [facility]-Trauma [address] [place] [phone] Fuson, Patrease, MA Ischemic bowel disease ([facility]) (Primary Dx) Social History Tobacco Use Types Packs/Day Years [...] 9:30 AM EDT Hospital Encounter Kal Lynn [facility] - Pet Imaging [address] [place] [phone] 05/25/2025 10:15 AM EDT Office Visit [facility] [address] [place] [address] Kelvin Myles MD [address] [place] [address] 06/03/2025 11:15 AM EDT Office Visit Heather Lynn [facility] - Medical Oncology [address] [place] [phone] Rowdy Riley MD [address] [facility] [address] [place] [address] 07/29/2025 3:30 PM EDT Office Visit [facility], A Department of [facility] [address] [phone] Janice Bhat APRN-COMMUTATOR UNDERCUTTER [address] [phone] 07/30/2025 2:30 PM EDT Office Visit [facility] [address] [place] [address] Rowdy Riley MD [address] [facility] [address] [place] [address] Scheduled Referrals Name Type Priority Associated Diagnoses Order Schedule [facility] [place] [place] Outpatient Referral Routine Ischemic bowel disease ([facility]) Expected: 05/27/2024 (Approximate), Expires: 05/27/2024 documented as of this encounter Visit Diagnoses Diagnosis Ischemic bowel disease- Primary Unspecified vascular insufficiency of intestine documented in this encounter Additional Health Concerns Infection Onset Date Last Indicated Resolved Time COVID-19 Rule-Out 09/18/2024 09/18/2024 09/18/2024 11:11 PM EST COVID-19 Rule-Out Comment:Results negative as of 09/18/24 09/18/2024 09/18/2024 09/19/2024 8:[address] Assessment Noted Time PHQ-9 Depression Total Score: 0 05/01/20 2:26 PM EDT documented as of this encounter Care Teams Doweling Machine Operator Relationship Specialty Start Date End Date Dagmar Hernandez, ROLLER MAKER-COMMUTATOR UNDERCUTTER [address] [place] [address] PCP - General Nurse Practitioner 06/19/24 documented as of this encounter
--- OUTSIDE RECORDS SUMMARY | 2025-05-20 07:33 | XMS_ITS | Clinical Summary ---
Author Organization [facility] Address [address] [facility], [address] [place] [address] Care Team Providers Care Speech Language Pathologist Name Role Phone Trisotn Coyle MD Primary Care Provider [phone] Allergies Active Allergy Reactions Criticality Noted Date Comments Baclofen 08/11/2024 Codeine 08/11/2024 Medications ferrous sulfate (IRON 325) 325 (65 Fe) MG tablet Take 1 tablet by mouth daily (with breakfast) Active pregabalin (LYRICA) 75 MG capsule Take 1 capsule by mouth 2 times daily. Max Daily Amount: 150 mg Active metoprolol tartrate (LOPRESSOR) 25 MG tablet Take 1 tablet by mouth 2 times daily Active oxyBUTYnin (DITROPAN-XL) 5 MG extended release tablet Take 1 tablet by mouth daily Active semaglutide, 2 MG/DOSE, (OZEMPIC, 2 MG/DOSE,) 8 MG/3ML SOPN sc injection Inject 2 mg into the skin every 7 days Active Insulin Degludec (TRESIBA FLEXTOUCH) 100 UNIT/ML SOPN Inject 10 Units into the skin nightly Active acetaminophen (TYLENOL) 500 MG tablet Take 2 tablets by mouth every 6 hours as needed for Pain Active vitamin B-12 (CYANOCOBALAMIN ) 100 MCG tablet Take 0.5 tablets by mouth daily Active vitamin D 50 MCG (2000 UT) CAPS capsule Take 1 capsule by mouth daily Active calcium carbonate (OSCAL) 500 MG TABS tablet Take 1 tablet by mouth 2 times daily Active insulin lispro (HUMALOG,ADMELO G) 100 UNIT/ML SOLN injection vial Inject 4 Units into the skin 3 times daily (before meals) Active allopurinol (ZYLOPRIM) 300 MG tablet Take 1 tablet by mouth daily Active aspirin 81 MG chewable tablet Take 1 tablet by mouth daily for 10 days 10 tablet 08/15/2024 Active apixaban (ELIQUIS) 5 MG TABS tablet Take 1 tablet by mouth 2 times daily 60 tablet 11 08/15/2024 Active ticagrelor (BRILINTA) 90 MG TABS tablet Take 1 tablet by mouth 2 times daily 60 tablet 11 08/15/2024 Active atorvastatin (LIPITOR) 80 MG tablet TAKE 1 TABLET BY MOUTH EVERY NIGHT 90 tablet 2 11/27/2024 Active amiodarone (CORDARONE) 200 MG tablet Take 1 tablet by mouth 2 times daily PLS CALL FOR AN APPT FOR FURTHER REFILLS 200 tablet 02/23/2025 Active Active Problems Problem Noted Date Diagnosed Date C. difficile diarrhea 08/13/2024 Bandemia 08/13/2024 ST elevation myocardial infarction (STEMI) 08/10 Complete heart block 08/10/2024 Essential hypertension 08/10/2024 Hyperlipidemia 08/10/2024 ERNESTINE (acute kidney injury) 08/10/2024 Acute coronary syndrome 08/10/2024 Diabetic polyneuropathy asso ciated with type 2 diabetes mellitus 08/10/2024 Gout Diabetes mellitus Stage 3b chronic kidney disease Anemia of chronic disease Encounters Date Type Department Care Team Description 02/21/2025 Refill [facility] Biostatistic[facility] - [place] [address], [address] [place] [address] Cathy Mckinley, FILTER PRESS PUMPER - OPERATION SUPERVISOR Medication Refill from Last 3 Months Family History Medical History Relation Name Comments Cancer Father Cancer Mother Relation Name Status Comments Father Mother Social History Tobacco Use Types Packs/Day Years Used Date Smoking Tobacco: Former Cigarettes Smokeless Tobacco: Never Tobacco Cessation:Counseling Given: No Alcohol Use Standard Drinks/Week Comments Never 0 (1 standard drink = 0.6 oz pur e alcohol) [facility] Utilities Answer Date Recorded In the past 12 months has th e electric, gas, oil, or water company threatened to shut off services in your home? No 08/10/2024 Hunger Vital Sign Answer Date Recorded Within the past 12 months, y ou worried that your food would run out before you got the money to buy more. Never true 08/10/20 24 Within the past 12 months, t he food you bought just didn't last and you didn't have money to get more. Never true 08/10/2024 PRAPARE - Transportation Answer Date Re corded In the past 12 months, has l ack of transportation kept you from medical appointments or from getting medications? No 07/31 In the past 12 months, has l ack of transportation kept you from meetings, work, or from getting things needed for daily living? No 08/10/2024 Housing Stability Vital Sign Answer Jason e Recorded In the last 12 months, was t here a time when you were not able to pay the mortgage or rent on time? No 08/10/2024 In the past 12 months, how m any times have you moved where you were living? 1 08/10/2024 At any time in the past 12 m [facility], were you homeless or living in a fpc (including now)? No 08/10/2024 Food Insecurity Answer Date Recorded Within the past 12 months, y ou worried that your food would run out before you got the money to buy more. 1 08/10/2024 Within the past 12 months, t he food you bought just didn't last and you didn't have money to get more. 1 08/10/2024 Interpersonal Safety Domain Source: IP Abuse Scr eening Answer Date Recorded Physical abuse Denies 08/10/2024 Verbal abuse Denies 08/10/2024 Emotional abuse Denies 08/10/2024 Financial abuse Denies 08/10/2024 Sexual abuse Denies 08/10/2024 Comments Unknown Sex and Gender Information Value Date Recorded Sex Assigned at Not on file Legal Sex Female 6:33 PM EST Gender Identity Not on file Sexual Orientation Not on file Last Filed Vital Signs Vital Sign Reading Time Taken Comments Blood Pressure 116/58 08/15/2024 11:15 AM EST Pulse 69 08/15/2024 7:07 AM EST Temperature 36.7 C (98.1 F) 08/15/2024 11:15 AM EST Respiratory Rate 16 08/15/2024 7:07 AM EST Oxygen Saturation 96% 08/15/2024 11: 15 AM EST Inhaled Oxygen Concentration - - Weight 108.5 kg (239 lb 3.2 oz) 08/15/2024 4:00 AM EST Height 157.5 cm (5' 2 ) 08/15/2024 4:00 AM EST Body Mass Index 43.75 08/15/2024 4:00 AM EST Plan of Treatment Health Maintenance Due Date Last Done Comments Lipids 1955 Depression Screen 1958 Diabetic Alb to Cr ratio (uACR) test 1964 Hepatitis C screen 1964 COVID-19 Vaccine ( season) 2024 Annual Wellness Visit (Medicare Advantage) 09/30/2024 Flu vaccine (#1) 04/30/2025 07/24/2024, 01/2024, 08/09/2022, Additional history exists GFR test (Diabetes, CKD 3-4, OR last GFR 15-59) 08/15/2025 08/15/2024, 08/14/2024, 08/13/2024, Additional history exists DTaP/Tdap/Td vaccine (3 - Td or Tdap) 01/28/2033 01/28/2023, 12/08/2012 DEXA (modify frequency per FRAX score) Completed 01/18/2023, 12/05/2020 Pneumococcal 50+ years Vaccine Completed 02/04/2023, 03/14/2016, 04/06/2014, Additional history exists Shingles vaccine Completed 05/07/2023, 04/2023, 04/06/2015, Additional history exists Respiratory Syncytial Virus (RSV) or age 60 yrs+ Completed 07/24/2024 Hepatitis A vaccine Aged Out No longe r eligible based on patient's age to complete this topic Hepatitis B vaccine Aged Out No longe r eligible based on patient's age to complete this topic Hib vaccine Aged Out No longer eligi ble based on patient's age to complete this topic Meningococcal (ACWY) vaccine Aged Out No longer eligible based on patient's age to complete this topic Meningococcal B vaccine Aged Out No l onger eligible based on patient's age to complete this topic Polio vaccine Aged Out No longer elig ible based on patient's age to complete this topic Medical Devices Implanted Type Area Fixed Income Portfolio Manager Device Identifier Shelf Expiration Date Model / Serial / Lot Stent Coronary Shoaib Taylor Rx 3x18 Mm Zotarolimus Elut - [id number] Implanted:Qty: 1 on 08/10/2024 by Nima Lee MD at [facility] Coronary stents Groin [employer] [id number] 03/18/2027 [id number] / / [id number] Procedures Procedure Name Priority Date/Time Associated Diagnosis Comments COMPREHENSIVE METABOLIC PANEL W/ REFLEX TO MG FOR LOW K Routine 08/15/2024 6:38 AM EST from Last 3 Months or Most Recently Relevant to Health Maintenance Results * (ABNORMAL) Comprehensive Metabolic Panel w/ Reflex to MG (08/15/2024 6:38 AM EST) Sodium 134(L) 136 - 145 mmol/L 08/15/2024 6:38 AM EST [facility] Potassium 5.0 3.7 - 5.3 mmol/L 08/15/2024 6:38 AM EST [facility] Chloride 105 98 - 107 mmol/L 08/15/2024 6:38 AM EST [facility] CO2 21 20 - 31 mmol/L 08/15/2024 6:38 AM EST [facility] Anion Gap 8(L) 9 - 16 mmol/L 08/15/2024 6:38 AM EST [facility] Glucose 108(H) 74 - 99 mg/dL 08/15/2024 6:38 AM EST [facility] BUN 51(H) 8 - 23 mg/dL 08/15/2024 6:38 AM EST [facility] Creatinine 2.9(H) 0.6 - 0.9 mg/dL 08/15/2024 6:38 AM EST [facility] Est, Glom Filt Rate 16(L) >60 mL/min/1. 73m2 08/15/2024 6:38 AM EST [facility] Comment: These results are not intended for use in patients <18 years of age. eGFR results are calculated without a race factor using the 2020 CKD-EPI equation. Careful clinical correlation is recommended, particularly when comparing to results calculated using previous equations. The CKD-EPI equation is less accurate in patients with extremes of muscle mass, extra-renal metabolism of creatine, excessive creatine ingestion, or following therapy that affects renal tubular secretion. Calcium 8.7 8.6 - 10.4 mg/dL 08/15/2024 6:38 AM EST [facility] Total Protein 5.6(L) 6.6 - 8.7 g/dL 08/15/2024 6:38 AM EST [facility] Albumin 3.2(L) 3.5 - 5.2 g/dL 08/15/2024 6:38 AM EST [facility] Albumin/Globulin Ratio 1.3 1.0 - 2.5 08/15/2024 6:38 AM EST [facility] Total Bilirubin 0.4 0.0 - 1.2 mg/dL 08/15/2024 6:38 AM EST [facility] Alkaline Phosphatase 197(H) 35 - 104 U/L 08/15/2024 6:38 AM EST [facility] ALT 17 10 - 35 U/L 08/15/2024 6:38 AM EST [facility] AST 27 10 - 35 U/L 08/15/2024 6:38 AM EST [facility] Blood BLOOD SPECIMEN / Unknown 08/15/2024 6:38 AM EST 08/15/2024 6:52 AM EST us Bart Mulligan MD CHEMISTRY ORDERABLES Final Res ult [facility] [address] [place] [address], [facility] [phone] from Last 3 Months or Most Recently Relevant to Health Maintenance Insurance MEDICARE on file on file Advance Directives * Full Code (Latest Code Status on File) Date Activated Date Inactivated Comments 08/10/2024 2:38 PM 08/15/2024 3:46 PM Care Teams Speech Language Pathologist Relationship Specialty Start Date End Date Imm, Triston Kaye MD [address] [place], [place] [id number] PCP - General 11/24/13
--- OUTSIDE RECORDS SUMMARY | 2025-05-20 07:34 | XMS_ITS | Encounter Summary ---
Author Organization [facility] Address [id number] [address] [place] [address] Care Team Providers Care Control Room Technician Name Role Phone Dagmar Hernandez MANAGER BANK-IGNITER CAPPER Primary Care Pro vider Reason for Referral * Diagnostic Imaging (Routine) - Authorized Specialty Diagnoses / Procedures Referred By Contac t Referred To Contact Radiology Diagnoses Carcinoma of stomach (CMS-HCC) Procedures PET CT skull to thigh Rowdy Riley MD [address] [place] [address] [address] [place] [address] Phone: tel: fax: Referral ID Status Reason Start Date Expiration Date V isits Requested Visits Authorized [id number] Authorized 05/12/2025 05/12/2026 1 1 Encounter Details Date Type Department Care Team (Late st Contact Info) Description 05/12/2025 Documentation Heather Miller [facility] - Medical Oncology [address] [place] [address] Venus Silvestre, ANALI Social History Tobacco Use Types Packs/Day Years Used Date Smoking Tobacco: Former Cigarettes 0.5 10 1 975 - 1985 Smokeless Tobacco: Never Alcohol Use Standard Drinks/Week Comments Not Currently 0 (1 standard drink = 0.6 oz pur e alcohol) [facility] Utilities Answer Date Recorded In the [...] on file documented as of this encounter Progress Notes * Venus Silvestre RN - 05/12/2025 1:32 PM EDT Spoke with the [facility] at [place]. They will get pet ct scheduled. Follow up scheduled with Dr. Riley on 06/03. Her2 and MSI faxed to [facility] Histology. I saw pt for her iron deficiency in the past. Please schedule f/u to discuss further tx. Please check HER2 and MSI on pt's biopsy sample. She will need PET for further evaluation. documented in this encounter Plan of Treatment Upcoming Encounters Date Type Department Care Team (Late st Contact Info) Description 05/21/2025 9:30 AM EDT Hospital Encounter [facility] Heather Miller [facility] - Pet Imaging [address] [place] [phone] 05/25/2025 10:15 AM EDT Office Visit [facility] Physicians General Surgery [address] [place] [phone] Kelvin Myles MD [address] [place] [phone] 06/03/2025 11:15 AM EDT Office Visit Heather Lynn [facility] - Medical Oncology [address] [place] [phone] Rowdy Riley MD [address] [place] [address] [address] [place] [address] 07/29/2025 3:30 PM EDT Office Visit [facility], A Department of [facility] [address] [phone] Janice Bhat, MANAGER BANK-IGNITER CAPPER [address] [phone] 07/30/2025 2:30 PM EDT Office Visit Heather Miller [facility] - Medical Oncology [address] [place] [address] Rowdy Riley MD [address] [facility] [address] [place], [place] [phone] Scheduled Orders Name Type Priority Associated Diagnoses Orde r Schedule Unlisted Lab Test Lab Routine Carcinoma of stomach (CMS-HCC) 1 Occurrences starting 05/12/2025 until 05/12/[address] skull to thigh Imaging Routine Carcinoma of stomach (CMS-HCC) Expected: 05/12/2025, Expires: 05/12/2026 documented as of this encounter Goals Goal Patient Goal Type Associated Problems Recent Progress Patient-Stated? Author SNF General Yes Jeaneth Markham LSW Note: Evaluation of progress towards goal: will need PT/OT evaluations to assist with determining needed DC LOC documented as of this encounter Visit Diagnoses Diagnosis Carcinoma of stomach (CMS-HCC)- Primary Malignant neoplasm of stomach, unspecified site documented in this encounter Additional Health Concerns Assessment Noted Time PHQ-9 Depression Total Score: 2 04/08/20 25 8:43 AM EDT documented as of this encounter Care Teams Control Room Technician Relationship Specialty Start Date End Date Dagmar Hernandez, MANAGER BANK-IGNITER CAPPER [address] [place] [address] PCP - General Nurse Practitioner 06/19/24 documented as of this encounter
--- OUTSIDE RECORDS SUMMARY | 2025-05-20 07:34 | XMS_ITS | Encounter Summary ---
Author Organization [facility] [employer] [facility] tem Address [id number] [address] [place] [address] Care Team Providers Care Bit Gatherer Name Role Phone Dagmar Hernandez BEEF KILLER-CONTINUOUS MINING MACHINE OPERATOR Primary Care Pro vider Encounter Details Date Type Department Care Team (Late st Contact Info) Description 05/12/2025 Results Follow-Up [facility] - Surgery [address] [place] [phone] Rowdy Riley MD [address] [place] [address] [address] [place] [id number] Surgical Pathology Social History Tobacco Use Types Packs/Day Years Used Date Smoking Tobacco: Former Cigarettes 0.5 10 1 975 - 1985 Smokeless Tobacco: Never Alcohol Use Standard Drinks/Week Comments Not Currently 0 (1 standard drink = 0.6 oz pur e alcohol) [facility] Utilities Answer Date Recorded In the past 12 months has [facility], gas, oil, or water company threatened to [...] encounter Miscellaneous Notes * Telephone Encounter - Rowena Teran CMA - 05/12/2025 10:29 AM EDT 05/17/2025 2:27 PM- Irma Islas voicemail for patient ----- Message from Kelvin Myles MD sent at 05/12/2025 9:55 AM EDT ----- Regarding: Path Needs appointment with me to discuss path results ----- Message ----- From: Lab, Background User Sent: 05/11/2025 4:15 PM EDT To: Kelvin Myles MD * Telephone Encounter - Rowena Teran CMA - 05/12/2025 10:29 AM EDT 05/17/25 2:35 pm, incoming, patient Patient stated she is in [facility]. Will call [facility] to schedule an appointment. * Telephone Encounter - Rowena Teran CMA - 05/12/2025 10:29 AM EDT 05/17/25 2:41 pm- [facility] [place]- outgoing Spoke with a staff member Marylin, at the [place], to get an appointment scheduled for patient to follow up with Dr. Myles. Was informed that the [place] are unable to transport her 05/18/25 or 05/25/25. Marylin stated she would contact family to see if someone could bring her to our office for a follow up appointment. 05/17/25 2:48 pm- incoming Received a call from Marylin at the [place] [facility] stating patient's is able to bring her on 05/25/25 at 10:15 am. Will schedule apppointment. documented in this encounter Plan of Treatment Upcoming Encounters Date Type Department Care Team (Late st Contact Info) Description 05/21/2025 9:30 AM EDT Hospital Encounter [facility] - [facility] [address] [place] [address] 05/25/2025 10:15 AM EDT Office Visit [facility] [address] [place] [phone] Kelvin Myles MD [address] [place] [phone] 06/03/2025 11:15 AM EDT Office Visit [facility] - Medical Oncology [address] [place] [phone] Rowdy Riley MD [address] [place] [phone] 07/29/2025 3:30 PM EDT Office Visit [facility] Neurology, A Department of [facility] [address] [phone] Janice Bhat APRN-CONTINUOUS MINING MACHINE OPERATOR [address] [phone] 07/30/2025 2:30 PM EDT Office Visit [facility] - Medical Oncology [address] [place] [phone] Rowdy Riley MD [address] [facility] [address] [place] [phone] documented as of this encounter Goals [...] documented as of this encounter Care Teams Bit Gatherer Relationship Specialty Start Date End Date Dagmar Hernandez, BEEF KILLER-CONTINUOUS MINING MACHINE OPERATOR [address] [place] [phone] PCP - General Nurse Practitioner 06/19/24 documented as of this encounter
--- OUTSIDE RECORDS SUMMARY | 2025-05-20 07:34 | XMS_ITS | Clinical Summary ---
Author Organization [employer]agement [employer] tem Address [id number] [address] 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 Active insulin degludec (TRESIBA FLEXTOUCH U-100) 100 unit/mL (3 mL) insulin pen Inject 20 Units under the skin nightly. Active insulin lispro (HumaLOG) 100 unit/mL insulin pen Inject under the skin. Sliding scale based on meals and blood sugar 03/04/20 22 Active cyanocobalamin (VITAMIN B12) 1,000 mcg tablet, sublingual Place 1 tablet (1,000 mcg total) under the tongue in the morning. 90 tablet 3 06/28/20 22 Active ferrous sulfate 325 (65 FE) mg tablet Take 1 tablet (325 mg total) by mouth daily with breakfast. Active FREESTYLE CUONG 2 SENSOR kit 03/01/20 23 Active ACCU-CHEK OLY PLUS TEST STRP strip 03/15/20 Active metoprolol tartrate (LOPRESSOR) 25 mg tablet TAKE 1 TABLET BY MOUTH TWICE DAILY (MORNING AND BEFORE BEDTIME) 180 tablet 3 10/19/19 Active mupirocin (BACTROBAN) 2 % ointment Apply 1 Application topically in the morning and 1 Application before bedtime. 03/24/20 Active polyethylene glycol (GLYCOLAX) 17 gram packet Take 17 g by mouth daily as needed (constipation) . 04/12/20 Active Additional Information Patient not taking.Reported on 05/02/2025 atorvastatin (LIPITOR) 80 mg tablet Take 1 tablet (80 mg total) by mouth every morning. TAKE 1 TABLET (80 MG TOTAL) BY MOUTH IN THE MORNING Hold d/t transaminitis, may resume if cmp in 1 week is normalized 05/14/20 Active tamsulosin (FLOMAX) 0.4 mg capsule Take 1 capsule (0.4 mg total) by mouth nightly. 05/07/20 Active clopidogreL (PLAVIX) 75 mg tablet Take 1 tablet (75 mg total) by mouth in the morning for 30 days. Hold until biopsy results received from EGD. 05/14/20 Active amiodarone (PACERONE) 200 mg tablet Take 1 tablet (200 mg total) by mouth in the morning. 05/11/20 Active pantoprazole (PROTONIX) 40 mg EC tablet Take 1 tablet (40 mg total) by mouth 2 (two) times a day for 5 days, THEN 1 tablet (40 mg total) every morning before breakfast for 30 days. 40 tablet 05/11/20 25 Active furosemide (LASIX) 40 mg tablet Take 1 tablet (40 mg total) by mouth daily for 30 days. 30 tablet 05/11/20 25 Active acetaminophen (TYLENOL ARTHRITIS) 650 mg 8 hr tablet Take 1 tablet (650 mg total) by mouth every 8 (eight) hours as needed for pain. Discontinued(S top Taking at Discharge) pantoprazole (PROTONIX) 40 mg EC tablet Take 1 tablet (40 mg total) by mouth daily. 90 tablet 3 07/07/20 21 Discontinued oxybutynin XL (DITROPAN-XL) 5 mg 24 hr tablet Take 1 tablet (5 mg total) by mouth in the morning. 02/14/20 025 Discontinued(S top Taking at Discharge) semaglutide (OZEMPIC) 0.25 mg or 0.5 mg(2 mg/1.5 mL) pen injector Inject 0.5 mg under the skin once a week. Every saturday 025 Discontinued(S top Taking at Discharge) apixaban (ELIQUIS) 5 mg tablet Take 1 tablet (5 mg total) by mouth in the morning and 1 tablet (5 mg total) before bedtime. 025 Discontinued clopidogreL (PLAVIX) 75 mg tablet Take 1 tablet (75 mg total) by mouth in the morning. 30 tablet 5 11/19/19 025 Discontinued amiodarone (PACERONE) 200 mg tablet Take 1 tablet (200 mg total) by mouth in the morning and 1 tablet (200 mg total) before bedtime. 12/18/19 25 025 Discontinued atorvastatin (LIPITOR) 80 mg tablet Take 1 tablet (80 mg total) by mouth in the morning. 01/03/20 25 025 Discontinued torsemide (DEMADEX) 10 mg tablet Take 1 tablet (10 mg total) by mouth daily. 025 Discontinued(S top Taking at Discharge) pregabalin (LYRICA) 75 mg capsuleIndicat ions:Vitamin B12 deficiency Take 1 capsule (75 mg total) by mouth 3 (three) times a day AND 2 capsules (150 mg total) nightly. 450 capsule 1 04/06/20 25 025 Discontinued(S top Taking at Discharge) isosorbide mononitrate (IMDUR) 30 mg 24 hr tablet Take 1 tablet (30 mg total) by mouth daily. 025 Discontinued(S top Taking at Discharge) atorvastatin (LIPITOR) 80 mg tablet Take 1 tablet (80 mg total) by mouth every morning. TAKE 1 TABLET (80 MG TOTAL) BY MOUTH IN THE MORNING 05/14/20 25 025 Discontinued apixaban (ELIQUIS) 5 mg tablet Take 1 tablet (5 mg total) by mouth in the morning and 1 tablet (5 mg total) before bedtime. Hold until biopsy results received from EGD. 05/14/20 25 025 Discontinued(S top Taking at Discharge) clopidogreL (PLAVIX) 75 mg tablet Take 1 tablet (75 mg total) by mouth in the morning. Hold until biopsy results received from EGD. 30 tablet 5 05/14/20 25 025 Discontinued clopidogreL (PLAVIX) 75 mg tablet Take 1 tablet (75 mg total) by mouth in the morning. Hold until biopsy results received from EGD. 05/14/20 25 025 Discontinued tamsulosin (FLOMAX) 0.4 mg capsule Take 1 capsule (0.4 mg total) by mouth nightly. 90 capsule 1 05/07/20 25 025 Discontinued pregabalin (LYRICA) 75 mg capsuleIndicat ions:Polyneuro joyce Take 1 capsule (75 mg total) by mouth in the morning and 1 capsule (75 mg total) before bedtime. Do all this for 3 days. 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 stolic and diastolic congestive heart failure 05/11/2025 Transaminitis 05/10/2025 Vaginal bleeding 05/03/2025 Left lower lobe pulmonary infiltrate 05/03/2025 Acute kidney injury superimp osed on stage 3b chronic kidney disease 05/03/2025 Acute upper GI bleed 05/02/2025 Severe malnutrition 04/12/2025 Fall, initial encounter 04/08/2025 ERRONEOUS ENCOUNTER--DISREGARD 04/03/2025 Iron deficiency anemia due to chronic blood loss 02/24/2025 Anemia of chronic disease 12/18/2024 ASCVD (arteriosclerotic cardiovascular disease) 09/28/2024 Paroxysmal atrial fibrillation 09/28/2024 Bilateral lower extremity edema 09/28/2024 Weakness 09/19/2024 Pneumonia of both lower lobes due to infectious organism 09/18/2024 Restless leg syndrome 12/16/2023 Spinal stenosis of lumbar re gion with neurogenic claudication 09/26/2023 Fundic gland polyposis of stomach 05/22/2023 Polyp of transverse colon 05/22/2023 Personal history of colonic polyps 05/03/2023 Overview (06/30/2024): Replacing Diagnosis that were inactivated after 06/30 regulatory import Ischemic bowel disease 04/04/2023 C. difficile colitis 03/31/2023 Gastroenteritis 03/30/2023 Stage 3b chronic kidney disease (CKD) 03/29/2023 Hyperkalemia 03/29/2023 Lumbosacral spondylosis without myelopathy 01/10 Overview (01/10/2023): Added automatically from request for surgery [id number] Primary osteoarthritis of right hip 12/04/2022 Overview (12/04/2022): Added automatically from request for surgery [id number] Disorder of sacrum 10/16/2022 Overview (10/16/2022): Added automatically from request for surgery [id number] Depression 07/25/2022 Hyperlipidemia 07/25/2022 Osteoporosis 07/25/2022 Acute kidney injury superimposed on CKD 06/06/20 21 Over weight 08/08/2020 Polyneuropathy 08/01/2020 Vitamin B12 deficiency 08/01/2020 Overview (08/01/2020): Vitamin B12 level 87 (04/2020) Vitamin D deficiency 08/01/2020 Overview (08/01/2020): Vitamin-D 25-OH level 20.7 (04/2020) Normocytic anemia 05/17/2020 Arthritis 05/17/2020 BMI 40.0-44.9, adult 05/17/2020 Former smoker 05/17/2020 Gout 05/17/2020 Palpitations 03/11/2018 Hypertension 03/11/2018 Cervical spondylosis without myelopathy 01/13/20 14 Chronic pain 01/12/2014 S/P lumbar discectomy 09/30/2011 Overview (03/20/2021): LEFT L5-S1 Type 2 diabetes mellitus wit h diabetic polyneuropathy, with long-term current use of insulin Resolved Problems Problem Noted Date Diagnosed Date Resolved Date Angina pectoris 07/25/2022 05/01/2023 Chronic kidney disease 07/25/202209/28 Abnormal nuclear stress test 03/13/2019 09/28/2024 Encounters Date Type Department Care Team Description 5 Documentation Heather Aron [facility] - Medical Oncology [address] [place] [address] Venus Silvestre RN 5 Results Follow-Up [facility] - Surgery [address] [place] [address] Rowyd Riley MD Surgical Pathology 5 Telephone [facility] [address] [address] Tara Carty CMA 5 12:00 PM EDT - 5 12:45 PM EDT Surgery [facility] - Surgery [address] [place] [address] Kelvin Myles MD COLONOSCOPY DIAGNOSTIC / SCREENING 5 11:48 AM EDT Anesthesia Event [facility] - Surgery [address] [address] Pedro Aldana MD 5 2:00 PM EDT - 5 2:54 PM EDT Surgery [facility] - Surgery [address] [place] [address] Kelvin Myles MD ESOPHAGOGASTRODUODENOSCOPY DIAGNOSTIC [20044 (CPT )] 5 1:59 PM EDT Anesthesia Event [facility] - Surgery [address] [place] [address] Pedro Aldana MD 5 8:05 PM EDT - 5 3:00 PM EDT Hospital Encounter [facility] - Acute Care [address] [address] Yvette Watson, Jose Morel MD Shah, Jagruti Nimit, MD Muhammad, Ruqiyya T, MD Acute upper GI bleed (Primary Dx); ERNESTINE (acute kidney injury); Hyperkalemia; Transaminitis; Urinary retention; Vitamin B12 deficiency; Polyneuropathy; Stage 3b chronic kidney disease (CKD) ([facility]); Paroxysmal atrial fibrillation ([facility]); ASCVD (arteriosclerotic cardiovascular disease); Type 2 diabetes mellitus with diabetic polyneuropathy, with long-term current use of insulin ([facility]) Discharge Disposition: Nursing Home Facility-Medicare Cert 5 Travel 5 Telephone [facility] [address] [place] [address] Di Curry MD 5 6:20 AM EDT - 5 8:23 PM EDT Hospital Encounter [facility] - GEN 2 Acute [address] [place] [address] Riky Webb MD Kidner, Ryan F, Fall, initial encounter (Primary Dx); Subdural hematoma ([facility]); Urinary retention Discharge Disposition: Nursing Home Facility-Medicare Cert 5 1:35 AM EDT - 5 5:10 AM EDT Emergency [facility] - Emergency [address] [place] [address] Carlos Alberto Garcia, Subdural hematoma ([facility]) (Primary Dx); Fall, initial encounter Discharge Disposition: [facility] 5 Travel 5 7:42 PM EDT - 5 12:01 AM EDT Emergency [facility] - Emergency [address] [place] [address] Christophe Cox MD Acute renal failure superimposed on chronic kidney disease, unspecified acute renal failure type, unspecified CKD stage (Primary Dx) Discharge Disposition: Home 5 2:00 PM EDT [facility] of [address] [address] Janice Bhat APRN-CNP Polyneuropathy (Primary Dx); Type 2 diabetes mellitus with diabetic polyneuropathy, with long-term current use of insulin ([facility]); Weakness; Vitamin D deficiency; Vitamin B12 deficiency 5 Travel 5 2:00 PM EDT Office Visit Heather Lynn [facility] - Medical Oncology [address] [place] [phone] Camila Kapoor APRN-CNP Normocytic anemia (Primary Dx); Iron deficiency anemia due to chronic blood loss; Anemia of chronic disease; Iron deficiency; Iron deficiency anemia secondary to inadequate dietary iron intake; Status post insertion of drug eluting coronary artery stent; 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; Stage 3b chronic kidney disease (CKD) ([facility]) 5 Travel 5 Travel 5 11:30 AM EDT Infusion Heather Lynn [facility] - Medical Oncology [address] [place] [phone] Acute kidney injury superimposed on CKD (Primary Dx); Normocytic anemia; Stage 3b chronic kidney disease (CKD) ([facility]) 5 Travel 5 Orders Only Heather Lynn [facility] - Medical Oncology [address] [place] [phone] Daniella Montes De Oca RN 5 Travel 5 2:00 PM EDT Infusion Heather Lynn [facility] Medical Oncology [address] [place] [phone] Iron deficiency anemia due t o chronic blood loss (Primary Dx); Anemia of chronic disease 5 11:30 AM EDT Infusion Heather Lynn [facility] Medical Oncology [address] [place] [phone] Acute kidney injury superimposed on CKD (Primary Dx); Normocytic anemia; Stage 3b chronic kidney disease (CKD) ([facility]) 5 2:00 PM EDT Office Visit [facility] [address] [place] [phone] Vicky Daniels MD ASCVD (arteriosclerotic cardiovascular disease) (Primary Dx); Essential hypertension; Mixed hyperlipidemia; Stage 3b chronic kidney disease (CKD) ([facility]) 5 Travel 5 Telephone [facility] [address] [place] [phone] Vicky Daniels MD 5 Travel 5 9:00 AM EDT Infusion [facility] [address] [place] [phone] Anemia of chronic disease (Primary Dx); Iron deficiency anemia due to chronic blood loss 5 Travel 5 Travel 5 2:30 PM EDT Infusion Heather Aron [facility] - Medical Oncology [address] [place] [phone] Acute kidney injury superimposed on CKD (Primary Dx); Normocytic anemia; Stage 3b chronic kidney disease (CKD) ([facility]) 5 Orders Only [facility], A [address] [phone] Rowdy Riley MD Iron deficiency anemia due to chronic blood loss (Primary Dx); Anemia of chronic disease 5 Travel 5 Telephone [facility] [place] [address] [place] [phone] Jelena Pulido RN from Last 3 Months Immunizations Immunization Administration Dates Next Due Influenza (IM) Preservative Free 07/20/2015 Influenza High Dose Preservative Free IM 024 Influenza, High-dose, Quadrivalent 10/04/2023, Influenza, Im Trivalent Preservative 07/07/2014, 07/24/2013,06/18/2011 Influenza, Injectable, Mdck, Preservative Free, Quad 07/05/2020,08/07/2018 Influenza, Injectable, quadrivalent (PF) 021 Pneumococcal Conjugate 13-Valent 03/14/2016 Pneumococcal Conjugate 20-valent 02/04/2023 Pneumococcal Polysaccharide 04/06/2014, 8 RSV, recombinant, protein santana bunit RSVpreF, adjuvant reconstituted, 0.5 mL, PF 07/24/2024 Tdap 01/28/2023,12/08/2012 Zoster Live 04/06/2015,07/24/2013 Zoster Vaccine Recombinant 05/07/2023,02/04/2023 Family History Medical History Relation Name Comments Cancer Brother 1 Heart disease Brother 1 Hyperlipidemia Brother 1 Hypertension Brother 1 Lung cancer Brother 1 Stroke Brother 1 Cancer Father Lung cancer Father Brain cancer ([facility] Mother Colon cancer Mother Diabetes Mother Heart disease Mother Hyperlipidemia Mother Hypertension Mother Breast cancer Sister 1 Cancer Sister 1 Diabetes Sister 1 Hyperlipidemia Sister 1 Hypertension Sister 1 Splenomegaly Sister 2 Lung disease Sister 3 Aries Breast Cancer Neg Hx Relation Name Status Comments Brother 1 Brother 2 Alive Father Mother Sister 1 Alive Sister 2 Sister 3 Alive Social History Tobacco Use Types Packs/Day Years Used Date Smoking Tobacco: Former Cigarettes 0.5 10 1 975 - 1985 Smokeless Tobacco: Never Tobacco Cessation:Counseling Given: Not Answered Alcohol Use Standard Drinks/Week Comments Not Currently 0 (1 standard drink = 0.6 oz pur e alcohol) [facility] Utilities Answer Date Recorded In the past 12 months has [employer], oil, or water [employer] threatened to shut off services in your [...] Mass Index 38.21 05/05/2025 1:36 PM EDT Plan of Treatment Upcoming Encounters Date Type Department Care Team (Late st Contact Info) Description 05/21/2025 9:30 AM EDT Hospital Encounter [facility] Lynn [facility] - Pet Imaging [address] [place] [phone] 05/25/2025 10:15 AM EDT Office Visit [facility] General Surgery [address] [place] [phone] Kelvin Myles MD [address] [place] [address] 06/03/2025 11:15 AM EDT Office Visit Heatherjacque Lynn [facility] - Medical Oncology [address] [place] [phone] Rowdy Riley MD [address] [place] [address] [address] [place] [address] 07/29/2025 3:30 PM EDT Office Visit [facility], A Department of [facility] [address] [address] Janice Bhat, 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-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 [employer] [address] [phone] 07/30/2025 2:30 PM EDT Office Visit Heather L Shane [facility] - Medical Oncology [address] [place] [phone] Rowdy Riley MD [address] [facility] [address] [place] [phone] Health Maintenance Due Date Last Done Comments Influenza Vaccine 05/31/2025 07/24/2024, , 08/09/2022, Additional history exists Fall Risk Screening 03/05/2026 03/05/2025 Depression Screening 04/08/2026 04/08/2025 Tobacco Screening 05/11/2026 05/11/2025 DTaP,Tdap and Td Vaccines (3 - Td or Tdap) 01/28/2033 01/28/2023, 12/08/2012 Zoster (Shingles) Vaccine Completed 2022, 02/04/2023, 04/06/2015, Additional history exists Goals Goal Patient Goal Type Associated Problems Recent Progress Patient-Stated? Author SNF General Yes Jeaenth Markham LSW Note: Evaluation of progress towards goal: will need PT/OT evaluations to assist with determining needed DC LOC Medical Devices Implanted Type Area [facility] Device Identifier Shelf Expiration Date Model / Serial / Lot Dm Monitor Cuong Procedures Procedure Name Priority Date/Time Associated Diagnosis Comments BEDSIDE GLUCOSE Routine 05/11/2025 11:49 AM EDT VASC VENOUS DUPLEX LOWER BILATERAL Routine 05/11/2025 10:17 AM EDT BEDSIDE GLUCOSE Routine 05/11/2025 8:44 AM EDT HEPARIN ANTI XA, UNFRACTIONATED Routine 05/11/2025 4:37 AM EDT CBC WITH AUTO DIFFERENTIAL Routine 05/11 4:37 AM EDT MAGNESIUM Routine 05/11/2025 4:37 AM EDT COMPREHENSIVE METABOLIC PANEL Routine 4:37 AM EDT BEDSIDE GLUCOSE Routine 05/10/2025 9:22 PM EDT BEDSIDE GLUCOSE Routine 05/10/2025 5:57 PM EDT MAGNESIUM Routine 05/10/2025 4:00 PM EDT BEDSIDE GLUCOSE Routine 05/10/2025 11:40 AM EDT B-TYPE NATRIURETIC PEPTIDE Routine 05/10 5:32 AM EDT HEPARIN ANTI XA, UNFRACTIONATED Routine 05/10/2025 5:32 AM EDT CBC WITH AUTO DIFFERENTIAL Routine 05/10 5:32 AM EDT MAGNESIUM Routine 05/10/2025 5:32 AM EDT COMPREHENSIVE METABOLIC PANEL Routine 5:32 AM EDT BEDSIDE GLUCOSE Routine 05/09/2025 8:51 PM EDT BEDSIDE GLUCOSE Routine 05/09/2025 4:34 PM EDT BEDSIDE GLUCOSE Routine 05/09/2025 11:07 AM EDT MAGNESIUM Routine 05/09/2025 11:03 AM EDT BEDSIDE GLUCOSE Routine 05/09/2025 7:47 AM EDT CBC WITH AUTO DIFFERENTIAL Routine 05/09 2:31 AM EDT MAGNESIUM Routine 05/09/2025 2:31 AM EDT COMPREHENSIVE METABOLIC PANEL Routine 2:31 AM EDT HEPARIN ANTI XA, UNFRACTIONATED Routine 05/09/2025 2:31 AM EDT BEDSIDE GLUCOSE [...] PROVATION EGD Routine 05/05/2025 2:01 PM EDT MS ESOPHAGOGASTRODUODENOSCOP Y TRANSORAL DIAGNOSTIC 05/05/2025 2:00 PM EDT anemia HIV 1&2 AB/AG SCREEN (P24 AG) Routine 1:03 PM EDT CMV DNA DETECT/QUANT, P Routine 05/05/20 1:03 PM EDT CHASE-LOPEZ VIRUS DNA, DETECT/QUANT, P Routine 05/05/2025 1:03 PM EDT HEMOGLOBIN AND [...] EXTRA TUBES Routine 05/05/2025 6:00 AM EDT MAGNESIUM Routine 05/04/2025 9:28 PM EDT HEMOGLOBIN AND HEMATOCRIT, BLOOD Routine 05/04/2025 9:28 PM EDT BEDSIDE GLUCOSE Routine 05/04/2025 8:38 PM EDT BEDSIDE GLUCOSE Routine 05/04/2025 4:35 PM EDT MAGNESIUM Routine 05/04/2025 1:13 PM EDT HEMOGLOBIN AND HEMATOCRIT, BLOOD Routine 05/04/2025 1:13 PM EDT BEDSIDE GLUCOSE [...] HEMATOCRIT, BLOOD Routine 05/03/2025 3:34 PM EDT OSMOLALITY, URINE Routine 05/03/2025 12:40 PM EDT SODIUM, URINE, RANDOM Routine 05/03/2025 12:40 PM EDT URINALYSIS Routine 05/03/2025 12:40 PM EDT US PELVIC COMPLETE Routine 05/03/2025 12:30 PM EDT TRANSFUSE RED BLOOD CELLS Routine 2024 12:29 PM EDT BEDSIDE GLUCOSE Routine 05/03/2025 11:59 AM EDT CROSSMATCH RBC Routine 05/03/2025 9:19 AM EDT TYPE AND SCREEN Routine 05/03/2025 8:44 AM EDT OSMOLALITY Add-On 05/03/2025 4:14 AM EDT HEPATITIS PANEL, ACUTE Add-On 4:14 AM EDT C-REACTIVE PROTEIN Add-On 05/03/2025 4:14 AM EDT PROCALCITONIN Add-On 05/03/2025 4:14 AM EDT CBC WITH AUTO DIFFERENTIAL Routine 05/03 4:14 AM EDT MAGNESIUM Routine 05/03/2025 4:14 AM EDT COMPREHENSIVE METABOLIC PANEL Routine 4:14 AM EDT BEDSIDE GLUCOSE Routine 05/03/2025 1:[address] ABDOMEN AND PELVIS WO CONT STAT 10:48 PM EDT EXTRA TUBES BLUE TOP Routine 05/02/2025 9:06 PM EDT EXTRA TUBES Routine 05/02/2025 9:06 PM EDT MAGNESIUM STAT 05/02/2025 9:06 PM EDT COMPREHENSIVE METABOLIC PANEL STAT 9:06 PM EDT CBC WITH AUTO DIFFERENTIAL STAT 05/02 9:06 PM EDT LACTATE W/ REFLEX STAT 05/02/2025 9:[address] BRAIN WO CONT STAT 05/02/2025 8:47 PM EDT XR CHEST 1 VW STAT 05/02/2025 8:47 PM EDT NURSE FECAL OB Routine 05/02/2025 8:28 PM EDT ECG 12-LEAD STAT 05/02/2025 8:20 PM EDT PM ED CRITICAL CARE Routine 05/02/2025 8:12 PM EDT VASC VENOUS DUPLEX LOWER BILATERAL Routine 04/12/2025 1:14 PM EDT US RETROPERITONEAL COMPLETE Routine 03/30 12:57 PM EDT EXTRA TUBES LAVENDER TOP Routine 025 7:22 AM EDT EXTRA TUBES Routine 04/12/2025 7:22 AM EDT BASIC METABOLIC PANEL Routine 04/12/2025 7:09 AM EDT B-TYPE NATRIURETIC PEPTIDE STAT 04/11 3:03 PM EDT BASIC METABOLIC PANEL Routine 04/11/2025 4:44 AM EDT CBC WITH AUTO DIFFERENTIAL Routine 04/11 4:43 AM EDT XR CHEST 1 VW Routine 04/10/2025 7:05 PM EDT MR BRAIN WO CONT Routine 04/10/2025 3:12 PM EDT VASC CAROTID DUPLEX BILATERAL Routine 10:05 AM EDT CBC WITH AUTO DIFFERENTIAL Routine 04/10 4:39 AM EDT BASIC METABOLIC PANEL Routine 04/10/2025 4:39 AM EDT ECHO COMPLETE W CONTRAST Routine 025 4:02 PM EDT CBC WITH AUTO DIFFERENTIAL Routine 04/09 3:02 AM EDT BASIC METABOLIC PANEL Routine 04/09/2025 3:[address] BRAIN WO CONT Routine 04/08/2025 8:19 PM EDT BEDSIDE GLUCOSE Routine 04/08/2025 4:[address] BRAIN WO CONT Routine 04/08/2025 2:20 PM EDT BEDSIDE GLUCOSE Routine 04/08/2025 9:22 AM EDT PM ED CRITICAL CARE Routine 04/08/2025 6:55 AM EDT XR PELVIS 1 OR 2 VWS STAT 04/08/2025 6:48 AM EDT XR CHEST 1 VW STAT 04/08/2025 6:48 AM EDT POCT NURSING URINE MACROSCOP IC UA Routine 04/08/2025 2:57 AM EDT ER EXTRA URINE MARBLE STAT 04/08/2025 2:48 AM EDT ER EXTRA URINE CULTURE STAT 2:48 AM EDT ER EXTRA URINE STAT 04/08/2025 2:48 AM EDT XR WRIST RT MIN 3 VWS STAT 04/08/2025 2:25 AM EDT XR KNEE RT 3 VWS STAT 04/08/2025 2:25 AM EDT XR KNEE LT 3 VWS STAT 04/08/2025 2:[address] FACIAL BONES WO CONT STAT 04/08/20 2:[address] CERVICAL SPINE WO CONT STAT 2024 2:[address] BRAIN WO CONT STAT 04/08/2025 2:24 AM EDT EXTRA TUBES BLUE TOP Routine 04/08/2025 2:14 AM EDT PROTIME & INR STAT Add-on 04/08/2025 2:14 AM EDT APTT STAT Add-on 04/08/2025 2:14 AM EDT FIBRINOGEN STAT Add-on 04/08/2025 2:14 AM EDT EXTRA TUBES Routine 04/08/2025 2:14 AM EDT CK TOTAL STAT 04/08/2025 2:14 AM EDT MYOGLOBIN, SERUM STAT 04/08/2025 2:14 AM EDT LIVER PANEL STAT 04/08/2025 2:14 AM EDT BASIC METABOLIC PANEL STAT 04/08/2025 2:14 AM EDT CBC WITH AUTO DIFFERENTIAL STAT 04/08 2:14 AM EDT PM ED CRITICAL CARE Routine 04/08/2025 1:44 AM EDT TROP I, HIGH SENSITIVITY 1 HOUR STAT 04/07/2025 8:30 PM EDT XR CHEST 1 VW STAT 04/07/2025 8:03 PM EDT LIPASE STAT Add-on 04/07/2025 7:56 PM EDT TROPONIN I, HIGH SENSITIVITY 0 HOUR STAT 04/07/2025 7:56 PM EDT MAGNESIUM STAT 04/07/2025 7:56 PM EDT TROPONIN I, HIGH SENSITIVITY 0 HOUR STAT 04/07/2025 7:56 PM EDT COMPREHENSIVE METABOLIC PANEL STAT 7:56 PM EDT APTT STAT 04/07/2025 7:56 PM EDT PROTIME & INR STAT 04/07/2025 7:56 PM EDT CBC WITH AUTO DIFFERENTIAL STAT 04/07 7:56 PM EDT ECG 12-LEAD STAT 04/07/2025 7:53 PM EDT HEMOGLOBIN AND HEMATOCRIT, BLOOD Routine 04/06/2025 4:54 PM EDT Acute kidney injury superimposed on CKD Normocytic anemia Stage 3b chronic kidney disease (CKD) ([facility]) FERRITIN Routine 03/22/2025 2:53 PM EDT Normocytic anemia Stage 3b chronic kidney disease (CKD) ([facility]) Anemia of chronic disease Acute kidney injury superimposed on CKD IRON AND TIBC Routine 03/22/2025 2:53 PM EDT Normocytic anemia Stage 3b chronic kidney disease (CKD) ([facility]) Anemia of chronic disease Acute kidney injury superimposed on CKD CBC WITH AUTO DIFFERENTIAL Routine 03/22 2:53 PM EDT Normocytic anemia Stage 3b chronic kidney disease (CKD) ([facility]) Anemia of chronic disease Acute kidney injury superimposed on CKD FERRITIN Routine 03/08/2025 3:22 PM EDT Normocytic anemia Stage 3b chronic kidney disease (CKD) ([facility]) Anemia of chronic disease Acute kidney injury superimposed on CKD IRON AND TIBC Routine 03/08/2025 3:22 PM EDT Normocytic anemia Stage 3b chronic kidney disease (CKD) ([facility]) Anemia of chronic disease Acute kidney injury superimposed on CKD CBC WITH AUTO DIFFERENTIAL Routine 03/08 3:22 PM EDT Normocytic anemia Stage 3b chronic kidney disease (CKD) ([facility]-HCC) Anemia of chronic disease Acute kidney injury superimposed on CKD ALBUMIN Routine 02/23/2025 3:26 PM EDT Chronic kidney disease, stage 4 (severe) (CMS-HCC) URIC ACID Routine 02/23/2025 3:26 PM EDT Chronic kidney disease, stage 4 (severe) ([facility]) BASIC METABOLIC PANEL Routine 02/23/2025 3:26 PM EDT Chronic kidney disease, stage 4 (severe) ([facility]) MAGNESIUM Routine 02/23/2025 3:26 PM EDT Chronic kidney disease, stage 4 (severe) ([facility]) VITAMIN D 25 HYDROXY Routine 02/23/2025 3:26 PM EDT Chronic kidney disease, stage 4 (severe) ([facility]) PARATHYROID HORMOME, INTACT Routine 01/29 3:26 PM EDT Chronic kidney disease, stage 4 (severe) ([facility]) PHOSPHORUS Routine 02/23/2025 3:26 PM EDT Chronic kidney disease, stage 4 (severe) ([facility]) URINALYSIS Routine 02/23/2025 3:26 PM EDT Chronic kidney disease, stage 4 (severe) ([facility]) MICROALBUMIN / CREATININE URINE RATIO Routine 02/23/2025 3:26 PM EDT Chronic kidney disease, stage 4 (severe) (CMS-HCC) FERRITIN Routine 02/23/2025 3:26 PM EDT Normocytic anemia Stage 3b chronic kidney disease (CKD) ([facility]) Anemia of chronic disease Acute kidney injury superimposed on CKD IRON AND TIBC Routine 02/23/2025 3:26 PM EDT Normocytic anemia Stage 3b chronic kidney disease (CKD) ([facility]) Anemia of chronic disease Acute kidney injury superimposed on CKD CBC WITH AUTO DIFFERENTIAL Routine 02/23 3:26 PM EDT Normocytic anemia Stage 3b chronic kidney disease (CKD) ([facility]) Anemia of chronic disease Acute kidney injury superimposed on CKD from Last 3 Months Results * (ABNORMAL) Bedside Glucose *Place/Obtain serum glucose if >500 per glucometer. (05/11/2025 11:49AM EDT) Only the most recent of31 resultswithin the time period is included. Bedside Glucose (POC) 208(H) 65 - 99 mg/dL 05/11/2025 11:54 AM EDT [facility] arterial/capilla ry 05/11/2025 11:49 AM EDT 05/11/2025 11:54 AM EDT us Wesly Morse MD POINT OF CARE TEST ORDERAB LES Final Result [facility] [address] [place] [address], [place] * Vas venous duplex lwr bilateral (05/11/2025 10:17 AM EDT) Only the most recent of2 resultswithin the time period is included. Anatomical Region Laterality Modality Vascular Bilateral Ultrasound [...] superficial vein thrombosis inthe great saphenous vein. Bethanie Marquez FIELD CONTROL INSPECTOR-SUPERVISOR [employer] CV VASCULAR ORDERABLES Fi nal Result * (ABNORMAL) CBC auto differential (05/11/2025 4:37 AM EDT) Only the most recent of18 resultswithin the time period is included. Pathologist [facility] WBC 3.7(L) 4 - 11 x10E9/L 05/11/2025 5:00 AM EDT [facility] RBC Count 2.72(L) 3.8 - 5.2 X10E12/L 05/11/2025 5:00 AM EDT [facility] Hemoglobin 7.9(L) 11.7 - 15.5 g/dL 05/11/2025 5:00 AM EDT [facility] Hematocrit 23.6(L) 35 - 47 % 05/11/2025 5:00 AM EDT [facility] MCV 87 80 - 100 fL 05/11/2025 5:00 AM EDT [facility] MCH 29.2 27 - 34 pg 05/11/2025 5:00 AM EDT [facility] MCHC 33.6 32 - 36 g/dL 05/11/2025 5:00 AM EDT [facility] RDW 19.6(H) 11.5 - 15 % 05/11/2025 5:00 AM EDT [facility] Platelet Count 209 150 - 450 X10E9/L 05/11/2025 5:00 AM EDT [facility] MPV 9.8 7 - 12 fL 05/11/2025 5:00 AM EDT [facility] Neutrophils % 54.9 % 05/11/2025 5:00 AM EDT [facility] Lymphocytes % 31.1 % 05/11/2025 5:00 AM EDT [facility] Monocytes % 10.7 % 05/11/2025 5:00 AM EDT [facility] Eosinophils % 2.2 % 05/11/2025 5:00 AM EDT [facility] Basophils % 1.1 % 05/11/2025 5:00 AM EDT [facility] Neutrophils Absolute (A) 2.0 1.5 - 6.6 10*3/uL 05/11/2025 5:00 AM EDT [facility] Lymphocytes Absolute 1.1 1.0 - 3.5 10*3/uL 05/11/2025 5:00 AM EDT [facility] Monocytes Absolute 0.4 0.0 - 0.9 10*3/uL 05/11/2025 5:00 AM EDT [facility] Eosinophils Absolute 0.1 0.0 - 0.4 10*3/uL 05/11/2025 5:00 AM EDT [facility] Basophils Absolute 0.0 0.0 - 0.2 10*3/uL 05/11/2025 5:00 AM EDT [facility] Differential Type AUTOMATED DIFFERENTIAL 05/11/2025 5:00 AM EDT [facility] Blood Venous blood / Unknown Venipuncture / Unknown 05/11/2025 4:37 AM EDT 05/11/2025 4:45 AM EDT Luigi Reese FIELD CONTROL INSPECTOR-SUPERVISOR [employer] LAB BLOOD ORDERABLES Fin al Result Performing Organization Address City/[facility] Co de Phone Number [address] [place] [address], [place] * Anti XA unfractionated heparin (05/11/2025 4:37 AM EDT) Only the most recent of4 resultswithin the time period is included. ANTI XA UFH 0.39 0.30 - 0.70 IU/mL 05/11/2025 5:00 AM EDT [facility] Comment: Optimal time for testing is 6 hrs post dosage This test is specific for monitoring patients on UFH, and is not recommended for use with other Anti-Xa medications. Blood Venous blood / Unknown Venipuncture / Unknown 05/11/2025 4:37 AM EDT 05/11/2025 4:45 AM EDT Wesly Morse MD LAB BLOOD ORDERABLES Final Result Performing Organization Address [facility] Co de Phone Number [address] [place] [address], [place] * Magnesium (05/11/2025 4:37 AM EDT) Only the most recent of16 resultswithin the time period is included. MAGNESIUM 2.0 1.8 - 2.6 mg/dL 05/11/2025 5:06 AM EDT [facility] Blood Venous blood / Unknown Venipuncture / Unknown 05/11/2025 4:37 AM EDT 05/11/2025 4:45 AM EDT us Luigi Reese FIELD CONTROL INSPECTOR-SUPERVISOR [employer] LAB BLOOD ORDERABLES Fin al Result [facility] [address] [place] [address], [place] * (ABNORMAL) Comprehensive metabolic panel (05/11/2025 4:37 AM EDT) Only the most recent of11 resultswithin the time period is included. SODIUM 133(L) 134 - 146 mmol/L 05/11/2025 5:06 AM EDT [facility] POTASSIUM 4.5 3.5 - 5.0 mmol/L 05/11/2025 5:06 AM EDT [facility] CHLORIDE 101 98 - 109 mmol/L 05/11/2025 5:06 AM EDT [facility] CARBON DIOXIDE 25 22 - 32 mmol/L 05/11/2025 5:06 AM EDT [facility] ANION GAP 7 5 - 15 mmol/L 05/11/2025 5:06 AM EDT [facility] BLOOD UREA NITROGEN 34(H) 5 - 27 mg/dL 05/11/2025 5:06 AM EDT [facility] CREATININE 2.02(H) 0.40 - 1.00 mg/dL 05/11/2025 5:06 AM EDT [facility] Comment:METHOD TRACEABLE TO IDMS STANDARD GLUCOSE 110(H) 65 - 99 mg/dL 05/11/2025 5:06 AM EDT [facility] CALCIUM 8.6 8.5 - 10.5 mg/dL 05/11/2025 5:06 AM EDT [facility] TOTAL PROTEIN 4.9(L) 6.0 - 8.0 g/dL 05/11/2025 5:06 AM EDT [facility] ALBUMIN 2.7(L) 3.2 - 5.3 g/dL 05/11/2025 5:06 AM EDT [facility] ALKALINE PHOSPHATASE 120 39 - 130 U/L 05/11/2025 5:06 AM EDT [facility] AST 60(H) <=41 U/L 05/11/2025 5:06 AM EDT [facility] ALT 62(H) <=31 U/L 05/11/2025 5:06 AM EDT [facility] BILIRUBIN,TOTAL 0.8 0.3 - 1.2 mg/dL 05/11/2025 5:06 AM EDT [facility] EGFR Non-Race Dependent 25(L) >=60 ml/min/1.7 3sq.m 05/11/2025 5:06 AM EDT [facility] Comment: eGFR not reported due to non-numeric value for Creatinine. Reported eGFR is based on the CKD-EPI 2020 equation that does not use a race coefficient. Blood Venous blood / Unknown Venipuncture / Unknown 05/11/2025 4:37 AM EDT 05/11/2025 4:45 AM EDT us Luigi Reese FIELD CONTROL INSPECTOR-SUPERVISOR [employer] LAB BLOOD ORDERABLES Fin al Result [address] [place] [address], * (ABNORMAL) B-type natriuretic peptide (05/10/2025 5:32 AM EDT) Only the most recent of2 resultswithin the time period is included. BNP 428(H) <=100 pg/mL 05/10/2025 12:41 PM EDT [facility] Blood Venous blood / Unknown Venipuncture / Unknown 05/10/2025 5:32 AM EDT 05/10/2025 5:58 AM EDT us Vandana John FIELD CONTROL INSPECTOR-SUPERVISOR [employer] LAB BLOOD ORDERABLES Final Result Performing Organization Address City/[facility]/ZIP Co de Phone Number [address] [place] [address], [place] * Protime & INR (05/08/2025 12:35 PM EDT) Only the most recent of3 resultswithin the time period is included. PROTIME 10.9 9.8 - 13.2 sec 05/08/2025 12:49 PM EDT [facility] INR 0.9 0.9 - 1.2 05/08/2025 12:49 PM EDT [facility] Blood Venous blood / Unknown Venipuncture / Unknown 05/08/2025 12:35 PM EDT 05/08/2025 12:43 PM EDT us Bethanie Marquez APRN-SUPERVISOR [employer] LAB BLOOD ORDERABLES Sadaf l Result Performing Organization Address City/[facility]/ZIP Co de Phone Number [address] [place] [address], [place] * Lavender Top (05/08/2025 11:08 AM EDT) Only the most recent of2 resultswithin the time period is included. Extra Tube Auto Resulted 05/08/2025 1:01 PM EDT [facility] Blood Venous blood / Unknown 05/08/2025 11:08 AM EDT 05/08/2025 11:14 AM EDT us Laina Rome MD LAB BLOOD ORDERABLES Final Result [address] [place] [address], [place] * PST TOP (05/08/2025 11:08 AM EDT) Extra Tube Auto Resulted 05/08/2025 1:01 PM EDT [facility] Blood Venous blood / Unknown 05/08/2025 11:08 AM EDT 05/08/2025 11:14 AM EDT us Laina Rome MD LAB BLOOD ORDERABLES Final Result Performing Organization Address City/[facility]/ZIP Co de Phone Number [address] [place] [address], * (ABNORMAL) APTT (05/08/2025 11:08 AM EDT) Only the most recent of3 resultswithin the time period is included. APTT 25(L) 26 - 37 sec 05/08/2025 11:25 AM EDT [facility] Blood Venous blood / Unknown Venipuncture / Unknown 05/08/2025 11:08 AM EDT 05/08/2025 11:12 AM EDT Bethanie Marquez FIELD CONTROL INSPECTOR-SUPERVISOR [employer] LAB BLOOD ORDERABLES Sadaf l Result Performing Organization Address [facility] Co de Phone Number [address] [place] [address], * Colonoscopy Report (05/07/2025 12:10 PM EDT) Narrative SYSTEMGENERATED, DOCUMENTATION - 05/07/2025 12:10 PM EDT This order has been auto-finalized for image and report archival in PACs. *For full report details, please reach out to your physician. This image is visible to you in MyChart.* us Kelvin Myles MD IMG OR IMG ORDERABLES Sadaf l Result * Surgical Pathology (05/07/2025 12:05 PM EDT) Only the most recent of2 resultswithin the time period is included. Case Report Surgical Pathology Report Case: [id number] Authorizing Provider: Kelvin Myles MD Collected: 05/07/2025 1205 Ordering Location: [facility] Received: 05/07/2025 1603 [facility] - Surgery Pathologist: Azalia Lam MD Specimen: Colon, sigmoid biopsies 05/13/2025 6:49 PM EDT [facility] Final Diagnosis Sigmoid colon, biopsy: Acute inflammation with extensive ulceration and features consistent with ischemic colitis. 05/13/2025 6:49 PM EDT [facility] at 1848 EDT Comment diagnosis confirmed with pancytokeratin and cytokeratin 20 immunostain. 05/13/2025 6:49 PM EDT [facility] Gross Description Received in formalin labeled PATRIZIA, sigmoid biopsies are two light argueta feathery soft tissue bits, 0.1 and 0.3 cm. The specimen is filtered and entirely submitted in a single cassette. (1, ns, [id number],m3) DM. 05/13/2025 6:49 PM EDT [facility] Embedded Images 05/13/2025 6:49 PM EDT [facility] Tissue Colon structure / Unknown 05/07/2025 12:05 PM EDT 05/07/2025 4:03 PM EDT Comment:Pre-op diagnosis: Anemia us Kelvin Myels MD PATHOLOGY/CYTOLOGY ORDERAB LES Final Result [facility] [address] [place] [address], [place] [phone] * Colonoscopy (05/07/2025 11:45 AM EDT) 05/07/2025 11:4 5 AM EDT Narrative PM CARDIOVASCULAR - 05/07/2025 12:13 PM EDT [facility] Patient Name: Irma Caceres Procedure Date No Time: 05/07/2025 CSN : [id number] Date of : 1945 Admit Type: Outpatient Age: 80 Room: [facility] OR Gender: Female Note Status: Finalized Attending MD: Kelvin Myles , , Procedure: Colonoscopy Indications: Melena Providers: Kelvin Myles Medicines: Monitored Anesthesia Care Complications: No immediate complications. Procedure: After I obtained informed consent, the scope was passed under direct vision. Throughout the procedure, the patient's blood pressure, pulse, and oxygen saturations were monitored continuously. The OLYMPUS PCF-H190DL # [id number] PEDIATRIC COLONOSCOPE was introduced through the anus [...] results. Regular diet. Okay to discharge to [facility] MD Kelvin Gaitan, 05/07/2025 12:13:09 PM This report has been signed electronically.Kelvin Myles Number of Addenda: 0 Note Initiated On: 05/07/2025 11:45 AM Procedure Note Kelvin Myles MD - 05/07/2025 [facility] Patient Name: Irma Caceres Procedure Date No Time: 05/07/2025 CSN : [id number] Date of : 1945 Admit Type: Outpatient Age: 80 Room: [place] [address] Gender: Female Note Status: Finalized Attending MD: Kelvin Myles , , Procedure: Colonoscopy Indications: Melena Providers: Kelvin Myles Medicines: Monitored Anesthesia Care Complications: No immediate complications. Procedure: After I obtained informed consent, the scope was passed under direct vision. Throughout theprocedure, the patient's blood pressure, pulse, and oxygen saturations were monitored continuously. TheOLYMPUS PCF-H190DL # [id number] PEDIATRIC COLONOSCOPE was introduced through the anus [...] results. Regular diet. Okay to discharge to [facility] MD Kelvin Gaitan, 05/07/2025 12:13:09 PM This report has been signed electronically.Kelvin Myles Number of Addenda: 0 Note Initiated On: 05/07/2025 11:45 AM Kelvin Myles MD GI PROCEDURE ORDERABLES Fi nal Result PM CARDIOVASCULAR * Light Blue Top (05/07/2025 5:32 AM EDT) Only the most recent of5 resultswithin the time period is included. Extra Tube Auto Resulted 05/07/2025 7:01 AM EDT [facility] Blood Venous blood / Unknown 05/07/2025 5:32 AM EDT 05/07/2025 5:45 AM EDT Laina Rome MD LAB BLOOD ORDERABLES Final Result Performing Organization Address City/[facility] Co de Phone Number [facility] [address] [place] [address], * (ABNORMAL) Hemoglobin and hematocrit, blood (05/05/2025 9:50 PM EDT) Only the most recent of7 resultswithin the time period is included. Pathologist [facility] Hemoglobin 9.0(L) 11.7 - 15.5 g/dL 05/05/2025 9:58 PM EDT [facility] Hematocrit 27.0(L) 35 - 47 % 05/05/2025 9:58 PM EDT [facility] Blood Venous blood / Unknown Venipuncture / Unknown 05/05/2025 9:50 PM EDT 05/05/2025 9:54 PM EDT Luigi Reese FIELD CONTROL INSPECTOR-SUPERVISOR [employer] LAB BLOOD ORDERABLES Fin al Result Performing Organization Address City/[facility]/ZIP Co de Phone Number [address] [place] [address], * Potassium (05/05/2025 5:07 PM EDT) Pathologist [facility] POTASSIUM 4.8 3.5 - 5.0 mmol/L 05/05/2025 6:07 PM EDT [facility] Blood Venous blood / Unknown Venipuncture / Unknown 05/05/2025 5:07 PM EDT 05/05/2025 5:21 PM EDT Bethanie Marquez FIELD CONTROL INSPECTOR-SUPERVISOR [employer] LAB BLOOD ORDERABLES Sadaf l Result Performing Organization Address City/[facility] Co de Phone Number [address] [place] [address], * EGD Report (05/05/2025 2:01 PM EDT) Narrative SYSTEMGENERATED, DOCUMENTATION - 05/05/2025 2:01 PM EDT This order has been auto-finalized for image and report archival in PACs. *For full report details, please reach out to your physician. This image is visible to you in MyChart.* Kelvin Myles MD IMG OR IMG ORDERABLES Sadaf l Result * Chase-Lopez virus DNA, Detect/Quant, P (05/05/2025 1:03 PM EDT) [facility] EBV DNA DETECT/QUANT Undetected Undetected IU/mL 05/06/2025 8:49 PM EDT [facility] Comment: Result in log IU/mL is Undetected. ADDITIONAL INFORMATION The quantification range of this assay is 35 to 100,000,000 IU/mL (1.54 log to 8.00 log IU/mL). Testing was performed using the napoleon EBV test ([employer] Test Performed by: [facility] [place] [address] Advertising Clerk: Elie Rodriguez Ph.D.; CLIA# [id number] Blood Venous blood / Unknown Venipuncture / Unknown 05/05/2025 1:03 PM EDT 05/05/2025 1:08 PM EDT us Bethanie Marquez FIELD CONTROL INSPECTOR-SUPERVISOR [employer] LAB BLOOD ORDERABLES Sadaf aron Result [facility] [address] [place] [address], * CMV DNA Detect/Quant, P (05/05/2025 1:03 PM EDT) [facility] CMV DNA DETECT QUANT Undetected Undetected IU/mL 05/06/2025 3:09 PM EDT [facility] Comment: Result in log IU/mL is Undetected. ADDITIONAL INFORMATION The quantification range of this assay is 35 to 10,000,000 IU/mL (1.54 log to 7.00 log IU/mL). Testing was performed using the napoleon CMV test ([employer] Test Performed by: [facility] [place] [address] Advertising Clerk: Elie Rodriguez Ph.D.; CLIA# [id number] Blood Venous blood / Unknown Venipuncture / Unknown 05/05/2025 1:03 PM EDT 05/05/2025 1:08 PM EDT Bethanie Marquez FIELD CONTROL INSPECTOR-[facility] LAB BLOOD ORDERABLES Sadaf l Result [facility] [address] [place] [address], [place] * HIV 1&2 AB/AG Screen (P24 AG) (05/05/2025 1:03 PM EDT) HIV 1 AND 2 AB/AG SCREEN Non-Reacti ve Non-Reacti ve 05/05/2025 6:26 PM EDT [facility] Blood Venous blood / Unknown Venipuncture / Unknown 05/05/2025 1:03 PM EDT 05/05/2025 1:08 PM EDT Narrative [facility] - 05/05/2025 6:26 PM EDT This [...] release of HIV test results or diagnoses. Abhinavsayra Jimmy [facility] LAB BLOOD ORDERABLES Sadaf l Result [facility] [address] [place] [address], * EGD (05/05/2025 12:18 PM EDT) 05/05/2025 12:1 8 PM EDT Narrative PM CARDIOVASCULAR - 05/05/2025 2:19 PM EDT [facility] Patient Name: Irma Caceres Procedure Date No Time: 05/05/2025 CSN : [id number] Date of : 1945 Admit Type: Outpatient Age: 80 Room: [place] [address] Gender: Female Note Status: Finalized Attending MD: Kelvin Myles , , Procedure: Upper GI endoscopy Indications: Iron deficiency anemia Providers: Kelvin Myles Medicines: Monitored Anesthesia Care Complications: No immediate complications. Procedure: After obtaining informed consent, the endoscope was passed under direct vision. Throughout the procedure, the patient's blood pressure, pulse, and oxygen saturations were monitored continuously. The OLYMPUS GIF-HQ190 #[id number] ADULT GASTROSCOPE was introduced through the mouth, [...] GI bleed. Procedure Code(s): --- Professional --- 98652, Esophagogastroduodenoscopy, flexible, transoral; with biopsy, single or multiple Diagnosis Code(s): --- Professional --- K31.7, Polyp of stomach and duodenum CPT copyright 2022 [employer]. All rights reserved. The codes documented in this report are preliminary and upon cylinder machine operator pulp drier review may be revised to meet current compliance requirements. MD Kelvin Gaitan, 05/05/2025 2:18:29 PM This report has been signed electronically.Kelvin Myles Number of Addenda: 0 Note Initiated On: 05/05/2025 12:18 PM Procedure Note Kelvin Myles MD - 05/05/2025 [facility] Patient Name: Irma Caceres Procedure Date No Time: 05/05/2025 CSN : [id number] Date of : 1945 Admit Type: Outpatient Age: 80 Room: [place] [address] Gender: Female Note Status: Finalized Attending MD: Kelvin Myles , , Procedure: Upper GI endoscopy Indications: Iron deficiency anemia Providers: Kelvin Myles Medicines: Monitored Anesthesia Care Complications: No immediate complications. Procedure: After obtaining informed consent, the endoscope was passed under direct vision. Throughout theprocedure, the patient's blood pressure, pulse, and oxygen saturations were monitored continuously. TheOLYMPUS GIF-HQ190 #[id number] ADULT GASTROSCOPE was introduced through the mouth, [...] GI bleed. Procedure Code(s): --- Professional --- 81845, Esophagogastroduodenoscopy, flexible, transoral; with biopsy, single or multiple Diagnosis Code(s): --- Professional --- K31.7, Polyp of stomach and duodenum CPT copyright 2022 [employer]. All rights reserved. The codes documented in this report are preliminary and upon cylinder machine operator pulp drier reviewmay be revised to meet current compliance requirements. MD Kelvin Gaitan, 05/05/2025 2:18:29 PM This report has been signed electronically.Kelvin Myles Number of Addenda: 0 Note Initiated On: 05/05/2025 12:18 PM us Kelvin Myles MD GI PROCEDURE ORDERABLES Fi nal Result PM CARDIOVASCULAR * Ultrasound abdomen limited (05/05/2025 11:51 AM [...] on 05/05/2025 1:44 PM us Bethanie Marquez FIELD CONTROL INSPECTOR-SUPERVISOR [employer] IMG US ORDERABLES Final R esult * (ABNORMAL) Procalcitonin (05/05/2025 6:01 AM EDT) Only the most recent of3 resultswithin the time period is included. PROCALCITONIN 4.03(H) <0.05 ng/mL 05/05/2025 2:10 PM EDT [facility] Blood Venous blood / Unknown Venipuncture / Unknown 05/05/2025 6:01 AM EDT 05/05/2025 6:07 AM EDT [facility] - 05/05/2025 2:10 PM EDT <0.50 ng/mL - Low risk of severe sepsis and/or septic shock. <2.00 ng/mL - Recommend retesting within 6-24 hours. >2.00 ng/mL - High risk of sepsis and/or septic shock. us Bethanie Marquez FIELD CONTROL INSPECTOR-[facility] LAB BLOOD ORDERABLES Sadaf sharp Result [facility] [address] [place] [address], * (ABNORMAL) Vaginitis Panel PCR (05/03/2025 6:27 PM EDT) [facility] BACT. VAGINOSIS DNA Not Detected Not Detected 05/04/2025 12:06 PM EDT [facility] Comment:Qualitative results are reported based on detection and quantitation of targeted organism markers which include: Lactobacillus spp. (L. crispatus and L. jensenii), Gardnerella vaginalis, Atopobium vaginae, Bacterial Vaginosis Associated Bacteria-2 (BVAB-2) and Megasphaera-1. GAIL SPECIES DNA Not Detected Not Detected 05/04/2025 12:06 PM EDT [facility] Comment:Gail species not detected include: C. albicans, C. tropicalis, C. parapsilosis or C. dubliniensis. GAIL KRUSEI DNA Not Detected Not Detected 05/04/2025 12:06 PM EDT [facility] Comment:No Gail krusei de tected. GAIL GLABRATA DNA Detected(A) Not Detected 05/04/2025 12:06 PM EDT [facility] Comment:Gail glabrata det ected. Literature studies show between 8-20% Fluconazole resistance for Gail glabrata. TRICHOMONAS VAG DNA Not Detected Not Detected 05/04/2025 12:06 PM EDT [facility] Comment: No Trichomonas vaginalis detected. BD MAX Vaginal Panel has not been evaluated for patients under 18 years old. Results for these patients should be reviewed and assessed in accordance with clinical presentation to determine patient diagnosis. Swab Vaginal structure / Unknown 05/03/2025 6:27 PM EDT 05/03/2025 6:44 PM EDT Marzena Perez MD MICROBIOLOGY - GENERAL ORDERAB LES Final Result [facility] [address] [place] [address], [place] [phone] * Transfuse RBC:1 Unit (05/03/2025 2:19 PM EDT) Bethanie Marquez FIELD CONTROL INSPECTOR-SUPERVISOR [employer] BLOOD TRANSFUSION ORDERAB LES Final Result * Sodium, urine, random (05/03/2025 12:40 PM EDT) URINE SODIUM,RANDOM 50 mmol/L 05/03/2025 10:41 PM EDT [facility] Urine (Urine, Indwelling Catheter) 05/03/2025 12:40 PM EDT 05/03/2025 12:56 PM EDT Vandana John FIELD CONTROL INSPECTOR-SUPERVISOR [employer] URINE ORDERABLES Final Res ult [facility] [address] [place] [address], [place] [phone] * Osmolality, urine (05/03/2025 12:40 PM EDT) URINE OSMOLALITY 328 300 - 1,300 mOsm/kg H2 05/03/2025 11:10 PM EDT [facility] Urine (Urine, Indwelling Catheter) 05/03/2025 12:40 PM EDT 05/03/2025 12:56 PM EDT us Vandana John FIELD CONTROL INSPECTOR-SUPERVISOR [employer] URINE ORDERABLES Final Res ult [facility] [address] [place] [address], [place] [phone] * (ABNORMAL) Urinalysis (05/03/2025 12:40 PM EDT) Only the most recent of2 resultswithin the time period is included. COLOR Yellow Yellow 05/03/2025 1:15 PM EDT [facility] TURBIDITY Clear Clear 05/03/2025 1:15 PM EDT [facility] SPECIFIC GRAVITY 1.010 1.003 - 1.035 05/03/2025 1:15 PM EDT [facility] NITRITE Negative Negative 05/03/2025 1:15 PM EDT [facility] PH,URINE 6.0 5.0 - 8.5 05/03/2025 1:15 PM EDT [facility] LEUKOCYTE ESTERASE Negative Negative 05/03/2025 1:15 PM EDT [facility] PROTEIN Trace(A) Negative 05/03/2025 1:15 PM EDT [facility] KETONES (URINE) Negative Negative 1:15 PM EDT [facility] UROBILINOGEN 0.2 eu/dL 0.2 eu/dL, 1.0 eu/dL 05/03/2025 1:15 PM EDT [facility] BILIRUBIN (URINE) Negative Negative 05/03/2025 1:15 PM EDT [facility] BLOOD/HGB Moderate(A) Negative 05/03/2025 1:15 PM EDT [facility] MUCOUS Present(A) None 05/03/2025 1:15 PM EDT [facility] R.B.CELLS 4 0 - 5 05/03/2025 1:15 PM EDT [facility] W.B.CELLS 8(H) 0 - 5 05/03/2025 1:15 PM EDT [facility] GLUCOSE (URINE) Negative Negative, 250 mg/dL 05/03/2025 1:15 PM EDT [facility] Urine (Urine, Indwelling Catheter) 05/03/2025 12:40 PM EDT 05/03/2025 12:56 PM EDT us Bethanie Marquez FIELD CONTROL INSPECTOR-SUPERVISOR [employer] URINE ORDERABLES Final Re sult [facility] [address] [place] [address], [place] * Ultrasound pelvic complete (05/03/2025 12:30 [...] on 05/03/2025 12:40 PM us Bethanie Marquez FIELD CONTROL INSPECTOR-SUPERVISOR [employer] IMG US ORDERABLES Final R esult * Crossmatch RBC:Number of Units: 1 (05/03/2025 9:19 AM EDT) Blood component type [id number] [facility] Unit number [id number] MS [facility] Unit ABO O [facility] Unit RH POS [facility] Crossmatch Compatible [facility] Status of unit TRANSFUSED PROM [facility] Expiration Date [id number] [facility] BB Type Barcode 5100 [facility] Blood Venous blood / Unknown 05/03/2025 9:19 AM EDT 05/03/2025 9:19 AM EDT us Bethanie Marquez [facility] BLO[facility] PRODUCT ORDERA BLES Edited Result - Final Performing Organization Address City/[facility]/ZIP Co de Phone Number [address] [place] [address], [place] * Type and screen(includes indirect nathalia) (05/03/2025 8:44 AM EDT) ABO O 05/03/2025 11:32 AM EDT [facility] RH Positive 05/03/2025 11:32 AM EDT [facility] Antibody Screen Negative 05/03/2025 11:32 AM EDT [facility] Blood Venous blood / Unknown Venipuncture / Unknown 05/03/2025 8:44 AM EDT 05/03/2025 8:46 AM EDT us Bethanie Marquez [facility] BLO[facility] TEST ORDERABLE S Edited Result - Final [facility] [address] [place] [address] [place] [address], [place] [address] [place] [address], [place] * Hepatitis panel, acute (05/03/2025 4:14 AM EDT) HEPATITIS B SURF AG Non-Reacti ve Non-Reacti ve 05/03/2025 11:17 PM EDT [facility] HEPATITIS A IGM Non-Reacti ve Non-Reacti ve 05/03/2025 11:17 PM EDT [facility] HEPATITIS B CORE IGM Non-Reacti ve Non-Reacti ve 05/03/2025 11:17 PM EDT [facility] ANTI HCV W/PCR REFLX Non-Reacti ve Non-Reacti ve 05/03/2025 11:17 PM EDT [facility] Comment: If recent infection suspected, recommend repeat testing (>2 months). Apltjg-rb-uvdutz ratio is <1.0. Blood Venous blood / Unknown Venipuncture / Unknown 05/03/2025 4:14 AM EDT 05/03/2025 5:19 AM EDT Vandana John [facility] LAB BLOOD ORDERABLES Final Result [facility] [address] [place] [address], [place] [phone] * (ABNORMAL) C-reactive protein (05/03/2025 4:14 AM EDT) [facility] C REACTIVE PROTEIN 9.7(H) <=0.7 mg/dL 05/03/2025 12:45 PM EDT [facility] Blood Venous blood / Unknown Venipuncture / Unknown 05/03/2025 4:14 AM EDT 05/03/2025 5:19 AM EDT Vandana John [facility] LAB BLOOD ORDERABLES Final Result [facility] [address] [place] [address], [place] * (ABNORMAL) Osmolality (05/03/2025 4:14 AM EDT) Pathologist [facility] OSMOLALITY 306(H) 280 - 300 mOsm/kg H2 05/03/2025 10:16 PM EDT [facility] Blood Venous blood / Unknown Venipuncture / Unknown 05/03/2025 4:14 AM EDT 05/03/2025 5:19 AM EDT us Vandana John FIELD CONTROL INSPECTOR-SUPERVISOR [employer] LAB BLOOD ORDERABLES Final Result [facility] [address] [place] [address], [place] [phone] * CT abdomen and pelvis without contrast [...] on 05/02/2025 11:07 PM Procedure Note Edward hJa MD - 05/02/2025 CLINICAL INFORMATION: elevated enzymes [...] MD on 05/02/2025 11:07 PM Ivania Trevino FIELD CONTROL INSPECTOR-SUPERVISOR [employer] IMG CT ORDERABLES Sadaf l Result * Lactate w/ Reflex (05/02/2025 9:05 PM EDT) LACTATE W/REFLEX 1.4 0.4 - 2.0 mmol/L 05/02/2025 9:29 PM EDT [facility] Blood Venous blood / Unknown Venipuncture / Unknown 05/02/2025 9:05 PM EDT 05/02/2025 9:09 PM EDT Narrative [facility] - 05/02/2025 9:29 PM EDT Result did not trigger repeat Lactate, re-order if needed. Ivania Trevino FIELD CONTROL INSPECTOR-SUPERVISOR [employer] LAB BLOOD ORDERABLES F inal Result [facility] [address] [place] [address], * CT brain without contrast (05/02/2025 8:47 PM EDT) Only the most recent of4 resultswithin the time period is included. Anatomical Region Laterality Modality Neuro, Head, Head [...] MD on 05/02/2025 8:54 PM Ivania Trevino APRN-SUPERVISOR [employer] [facility] [place] CT ORDERABLES Sadaf l Result * X-ray chest 1 view (05/02/2025 8:47 PM EDT) Only the most recent of4 resultswithin the time period is included. Anatomical Region Laterality Modality Body, Chest N/A [...] MD on 05/02/2025 8:52 PM Ivania Trevino APRN-SUPERVISOR [employer] [facility] [place] DIAGNOSTIC IMAGING ORDERABLES Final Result * (ABNORMAL) Nursing fecal occult blood (OBN) (05/02/2025 8:28 PM EDT) POC Fecal Occult Blood Positive(A ) Negative, Invalid Result 05/03/2025 5:32 AM EDT [facility] Stool Feces / Unknown 05/02/2025 8 :28 PM EDT 05/03/2025 5:32 AM EDT Jose Balderas MD POINT OF CARE TEST ORDERABLES Final Result [facility] [address] [place] [address], [place] * ECG 12 lead (05/02/2025 8:20 PM EDT) Only the most recent of2 resultswithin the time period is included. 05/02/2025 8:20 PM EDT Narrative [facility] - 05/02/2025 8:35 PM EDT Ivania Trevino FIELD CONTROL INSPECTOR-SUPERVISOR [employer] ECG ORDERABLES Final Result Performing Organization Address City/[facility]/ZIP Co de Phone Number [facility] * Critical [...] admitting provider Comments: And with surgery consultation. us Yvette Watson DO PROCEDURE/MINOR SURGICAL ORD ERABLES Final Result * Ultrasound retroperitoneal complete (04/12/2025 12:57 PM EDT) Anatomical Region Laterality Modality Body Ultrasound 04/12/2025 1:25 PM EDT Narrative 04/12/2025 1:29 PM EDT ULTRASOUND RETROPERITONEUM INDICATION: Urinary retention. COMPARISON: 06/07/2021. FINDINGS: Ultrasound evaluation of the kidneys and bladder was performed. Right kidney: 10.8 cm in maximal length. No collecting system dilatation, calculi, or contour deforming mass lesion. Left kidney: 11.4 cm in maximal length. No collecting system dilatation, calculi, or contour deforming mass lesion. Parenchymal thinning both kidneys. Bladder: [Layering debris urinary bladder. Bladder volume: 367 mL. Only right ureteral jet seen. Patient unable to void. IMPRESSION: 1. No stone or collecting system dilatation. 2. Urinary bladder debris. Patient unable to void. Finalized by William Patton MD on 04/12/2025 1:29 PM Procedure Note William Patton MD - 04/12/2025 ULTRASOUND RETROPERITONEUM INDICATION: Urinary retention. COMPARISON: 06/07/2021. FINDINGS: Ultrasound evaluation of the kidneys and bladder wasperformed. Right kidney: 10.8 cm in maximal length. No collecting system dilatation,calculi, or contour deforming mass lesion. Left kidney: 11.4 cm in maximal length. No collecting system dilatation,calculi, or contour deforming mass lesion. Parenchymal thinning both kidneys. Bladder: [Layering debris urinary bladder. Bladder volume: 367 mL. Onlyright ureteral jet seen. Patient unable to void. IMPRESSION: 1. No stone or collecting system dilatation. 2. Urinary bladder debris. Patient unable to void. Finalized by William Patton MD on 04/12/2025 1:29 PM us Lucy REESE IMG US ORDERABLES Final Resul t * (ABNORMAL) Basic Metabolic Panel (04/12/2025 7:09 AM EDT) Only the most recent of6 resultswithin the time period is included. SODIUM 135 134 - 146 mmol/L 04/12/2025 7:54 AM EDT [facility] POTASSIUM 4.8 3.5 - 5.0 mmol/L 04/12/2025 7:54 AM EDT [facility] CHLORIDE 103 98 - 109 mmol/L 04/12/2025 7:54 AM EDT [facility] CARBON DIOXIDE 23 22 - 32 mmol/L 04/12/2025 7:54 AM EDT [facility] ANION GAP 9 5 - 15 mmol/L 04/12/2025 7:54 AM EDT [facility] BLOOD UREA NITROGEN 31(H) 5 - 27 mg/dL 04/12/2025 7:54 AM EDT [facility] CREATININE 1.99(H) 0.40 - 1.00 mg/dL 04/12/2025 7:54 AM EDT [facility] Comment:METHOD TRACEABLE TO IDMS STANDARD GLUCOSE 124(H) 65 - 99 mg/dL 04/12/2025 7:54 AM EDT [facility] CALCIUM 8.2(L) 8.5 - 10.5 mg/dL 04/12/2025 7:54 AM EDT [facility] EGFR Non-Race Dependent 25(L) >=60 ml/min/1.7 3sq.m 04/12/2025 7:54 AM EDT [facility] Comment: Reported eGFR is based on the CKD-EPI 2020 equation that does not use a race coefficient. Blood Venous blood / Unknown Venipuncture / Unknown 04/12/2025 7:09 AM EDT 04/12/2025 7:09 AM EDT us Janice Bugress FIELD CONTROL INSPECTOR-SUPERVISOR [employer] LAB BLOOD ORDERABLES Sadaf sharp Result [facility] [address] [place] [address], [place] [phone] * MR brain without contrast (04/10/2025 3:12 PM EDT) Anatomical Region Laterality Modality Neuro, Head, Head and Neck, Neuro Covera N/A Magnetic Resonance 04/10/2025 9:08 PM EDT Narrative 04/10/2025 9:12 PM EDT EXAM: MRI BRAIN WITHOUT CONTRAST CLINICAL HISTORY: [...] are widely patent. There is no evidence of ventricular outflow obstruction. There are mild nonaggressive white matter changes of chronic ischemic small vessel disease. [...] Steve Daigle MD on 04/10/2025 9:12 PM Procedure Note Steve Daigle MD - 04/10/2025 EXAM: MRI BRAIN WITHOUT CONTRAST CLINICAL HISTORY: Subacute trauma, acute nausea, vomiting. TECHNIQUE: TECHNIQUE: Routine multiplanar multisequence MR imaging of thebrain was performed without contrast. COMPARISONS: CT dated 04/08/2025 FINDINGS: There is a right tentorial subdural hematoma measuring up to 0.4 cm inthickness. There is no corresponding mass effect. There is a tiny subduralhematoma overlying the right temporal lobe measuring up to 0.4 cm inthickness. There is no corresponding mass effect. There is no shift of themidline structures and the basal cisterns are widely patent. There is no evidenceof ventricular outflow obstruction. There are mild nonaggressive whitematter changes of chronic ischemic small vessel disease. The hyman-whitematter differentiation is preserved. The paranasal sinuses are wellaerated. There is a small amount of nonaggressive fluid in the left mastoids. IMPRESSION: 1. Redemonstration of a right tentorial subdural hematoma measuring up to0.4 cm in thickness. There is also a trace subdural hematoma overlying theright temporal lobe measuring up to 0.4 cm in thickness. There is no masseffect. Finalized by Steve Daigle MD on 04/10/2025 9:12 PM Ramu Hodge MD IMG MRI ORDERABLES Final Res ult * Vas carotid duplex bilateral (04/10/2025 10:05 AM EDT) Anatomical Region Laterality Modality Vascular Bilateral Ultrasound 04/10/2025 10:0 5 AM EDT Narrative 04/11/2025 8:17 PM EDT Right: Plaque with no significant ICA spectral Doppler or color flow disturbances; ICA 76 / 15 cm/sec. Antegrade vertebral artery flow. Left: Plaque with no significant ICA spectral Doppler or color flow disturbances; ICA 92 / 20 cm/sec. Antegrade vertebral artery flow. Conclusions: BILATERAL: Plaque without significant stenosis (<50%) of the internal carotid artery. Antegrade vertebral artery flow. Procedure Note Yolanda Pacheco MD - 04/11/2025 Right: Plaque with no significant ICA spectral Doppler or color flowdisturbances; ICA 76 / 15 cm/sec. Antegrade vertebral artery flow. Left: Plaque with no significant ICA spectral Doppler or color flowdisturbances; ICA 92 / 20 cm/sec. Antegrade vertebral artery flow. Conclusions: BILATERAL: Plaque without significant stenosis (<50%) of theinternal carotid artery. Antegrade vertebral artery flow. us Riaz Whipple CV VASCULAR ORDERABLES Fi nal Result * Echo complete W/ contrast (04/09/2025 4:02 PM EDT) FS 42 28 - 44 % XC[facility]A LVIDd 5.20 4.81 - 6.67 cm [facility]A LVIDs 3.00 2.83 - 4.28 cm XCELERA IVS 0.90 0.6 - 1.1 cm [facility]A PW 0.90 0.6 - 1.1 cm [facility]A LVOT diameter 2.20 cm XC[facility]ERA TDI 9.90 cm/s [facility]A MV TDI E' (medial) 6.85 cm/s [facility]A LA Volume Index 64.1 mL/m2 [facility]A E/A ratio 1.85 XCELERA E wave deceleration time 167.00 msec [facility]A MV Peak E [place] 137.00 cm/s XCELERA MV Peak A [place] 74.10 cm/s XC[facility]ERA LA size 3.80 cm XC[facility]ERA Aortic root 3.40 cm XC[facility]A LA volume 132.00 cm3 [facility]A RV diastolic dimension (basal) 36.0 mm [facility]A TAPSE 1.98 cm XCELERA Est. RA pressure 3 mmHg XCELERA AV peak ke[place] 147.00 cm/s XCELERA AV VTI 37.50 cm XCELERA AV mean gradient 6.00 mmHg XCELERA AV peak gradient 8.64 mmHg XCELERA MV pressure 1/2 time 49.00 ms XC[facility]A MV valve area p 1/2 method 4.49 cm2 XCELERA TR Peak [place] 3.0 m/s XCELERA TR peak gradient 36.97 mmHg XCELERA RV Peak Systolic Pressure 40 mmHg XCELERA PV peak gradient 5.66 mmHg XCELERA Inferior Vena Cava Diameter 2.40 cm XCELERA LV ESV A2C 93.20 mL XCELERA LV ESV A4C 164.00 mL XCELERA LV RWT 2D 34.62 XCELERA IVC proximal 24 cm XC[facility]A Left Ventricle Mass 168.72583 398270080 9 g XCELERA Interventricular Septum Diastolic Thickness by 2D 9 cm XCELERA RA area 20.0 cm2 XCELERA ZLVIDS -1.17 XCELERA ZLVIDD -0.85 X[facility]A Energy loss index 17.88 XCELERA MV mean gradient 2.32 mmHg XCELERA MV peak gradient 9.63 mmHg XCELERA MV VTI 36.06 cm XCELERA Mitral Valve Max Velocity 1.9469632 [id number] cm/s XCELERA Anatomical Region Laterality Modality Chest N/A Ultrasound Narrative 04/09/2025 7:48 PM EDT Left Ventricle: Left ventricle appears normal in [...] is no evidence of tricuspid valve stenosis. Left Ventricle Left ventricle appears normal in size. Wall thickness is normal. Systolic function is low normal to mildly decreased with an ejection fraction of 50-55%. See wall score diagram for wall motion abnormalities. Lateral E' is 9.90 cm/s. Medial E' is 6.85 cm/s. Right Ventricle Right ventricular size is mildly dilated. The right ventricular basal diameter is 36.0 mm. Normal tricuspid annular plane systolic excursion. Left Atrium The left atrial volume index is 64.1 mL/m2. Right Atrium Right atrium is mildly dilated. The right atrial area is 20.0 cm2. IVC/SVC The right atrial pressure is estimated at 8 mmHg. Mitral Valve Mitral valve structure is normal. There is annular calcification. There is no regurgitation or stenosis. Tricuspid Valve Tricuspid valve appears to be normal. There is mild regurgitation. There is no evidence of tricuspid valve stenosis. The right ventricular systolic pressure estimated by tricuspid regurgitation Doppler jet. RVSP calculated at 40 mmHg. RVSP is based on RA pressure of 3 mmHg. Aortic Valve The aortic valve is trileaflet. The leaflets are not thickened and exhibit normal excursion. There is trace regurgitation. There is no evidence of aortic valve stenosis. Pulmonic Valve Pulmonic valve structure is grossly normal. There is trace regurgitation. There is no evidence of pulmonic valve stenosis. The peak gradient is 5.66 mmHg. Ascending Aorta The aortic root is normal in size. Pericardium There is no pericardial effusion. Study Details A complete echo was performed using complete 2D, color flow Doppler and spectral Doppler. During the study the apical, parasternal, subcostal and suprasternal views were captured. Definity study was performed. Overall the study quality was adequate. The study had technical difficulties. BP: 134/80 Wall Scoring Baseline Score Index: 1.00 The left ventricular wall motion is normal. 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 or compromise Critical care was time spent personally by me on the following activities: Development of treatment plan with patient or surrogate, evaluation of patient's response to treatment, examination of patient, obtaining history from patient or surrogate, ordering and performing treatments and interventions, ordering and review of laboratory studies, ordering and review of radiographic studies, pulse oximetry, re-evaluation of patient's condition, review of old charts and discussions with consultants I assumed direction of critical care for this patient from another provider in my specialty: yes Care discussed with: admitting provider Riky Webb MD PROCEDURE/MINOR SURGICAL ORDERA BLES Final Result * X-ray pelvis 1 or 2 views (04/08/2025 6:48 AM EDT) Anatomical Region Laterality Modality MSK, Pelvis N/A Computed Radiogr aphy 04/08/2025 7:14 AM EDT Narrative 04/08/2025 7:15 AM EDT XR PELVIS 1 OR 2 VWS Clinical [...] Alberto Cisneros MD on 04/08/2025 7:15 AM Procedure Note Carlos Alberto Cisneros MD - 04/08/2025 XR PELVIS 1 OR 2 VWS Clinical history:fall on thinners, trauma pelvic pain Comparison: 05/16/2022 Findings: Degenerative changes of the lumbar spine and bilateral hips. There is noacute process fracture or dislocation. Vascular calcifications are noted.Osteopenia. If the patient is unable to bear weight or if there is concern fornondisplaced hip fracture, consider correlation with MRI. Impression: Degenerative changes and osteopenia without definitive acute osseousabnormality identified within the limitations of this examination. Finalized by Carlos Alberto Cisneros MD on 04/08/2025 7:15 AM Bogdan Tang MD [facility] [place] DIAGNOSTIC IMAGING [facility] Final Result * (ABNORMAL) POCT Nursing Urine Macroscopic UA (04/08/2025 2:57 AM EDT) POC Urine Specific [place] 1.015 1.010, 1.015, 1.020, 1.025 04/08/2025 2:49 AM EDT [facility] POC Urine Leukocyte Esterase Negative Negative 04/08/2025 2:49 AM EDT [facility] POC Urine Nitrite Negative Negative 04/08/2025 2:49 AM EDT [facility] POC Urine pH 6.5 5.0, 6.0, 6.5, 7.0, 7.5, 8.0, 8.5, 5.5 04/08/2025 2:49 AM EDT [facility] Urine Protein 100 mg/dL(A) Negative 04/08/2025 2:49 AM EDT [facility] Urine Glucose Negative Negative 04/08/2025 2:49 AM EDT [facility] Urine Ketones Negative Negative 04/08/2025 2:49 AM EDT [facility] Urine Urobilinogen 0.2 E.U./dL 04/08/2025 2:49 AM EDT [facility] Urine Bilirubin Negative Negative 04/08/2025 2:49 AM EDT [facility] Urine Blood/HGB Small(A) Negative 04/08/2025 2:49 AM EDT [facility] Urine 04/08/2025 2:57 AM EDT 04/08/2025 2:49 AM EDT us Carlos Alberto Garcia DO POINT OF CARE TEST ORDERABLES Final Result Performing Organization Address City/[facility] Co de Phone Number [address] [place] [address], [place] * Extra Urine Temple (04/08/2025 2:48 AM EDT) Extra Tube Auto Resulted 04/08/2025 4:02 AM EDT [facility] Urine (Urine, Straight Catheter) 04/08/2025 2:48 AM EDT 04/08/2025 3:00 AM EDT us Carlos Alberto Garcia DO URINE ORDERABLES Final Result Performing Organization Address [facility] Co de Phone Number [address] [place] [address], [place] * Extra Urine Culture (04/08/2025 2:48 AM EDT) Extra Tube Auto Resulted 04/08/2025 4:02 AM EDT [facility] Urine (Urine, Straight Catheter) 04/08/2025 2:48 AM EDT 04/08/2025 3:00 AM EDT us Carlos Alberto Garcia DO URINE ORDERABLES Final Result Performing Organization Address City/[facility] Co de Phone Number [address] [place] [address], [place] * Extra Urine (04/08/2025 2:48 AM EDT) Extra Tube Auto Resulted 04/08/2025 4:02 AM EDT [facility] Urine (Urine, Straight Catheter) 04/08/2025 2:48 AM EDT 04/08/2025 3:00 AM EDT us Carlos Alberto Garcia DO URINE ORDERABLES Final Result [facility] [address] [place] [address], [place] * CT facial bones without contrast (04/08/2025 2:25 AM EDT) Anatomical Region Laterality Modality Neuro, Face, Neuro Covera N/A Comput ed Tomography 04/08/2025 3:02 AM EDT Narrative 04/08/2025 3:[address] FACIAL BONES WO CONT 04/08/2025 2:00 [...] by Robby Rosales on 04/08/2025 3:06 AM Procedure Note Robby Rosales MD - 04/08/2025 CT FACIAL BONES WO CONT 04/08/2025 2:00 AM SIGNS AND SYMPTOMS: Fall, pain TECHNIQUE: Multidetector CT axial slices of the facial bones wereobtained. Helical, sagittal, coronal, and 3-D reconstructions wereperformed and viewed on a separate workstation and reviewed to furtherdefine anatomy and possible pathology. CT was performed with one or moreof the following dose reduction techniques: Automated exposure control, adjustment of the mAand/or kV according to patient size, or use of iterative reconstructiontechnique. COMPARISON: None. FINDINGS: Fracture: None. Paranasal sinuses and mastoids: Well aerated. Soft tissue swelling: Superficial soft tissue hematoma overlying the leftfrontal convexity. Globes: Intact. Upper aerodigestive tract: Within normal limits. Joints: Intact. Temporal mandibular joints: Intact. Infratemporal fossa: Within normal limits. IMPRESSION: No evidence of fracture or dislocation. Finalized by Robby Rosales on 04/08/2025 3:06 AM Carlos Alberto Garcia DO IMG CT ORDERABLES Final Result * X-ray knee left 3 views (04/08/2025 2:25 AM EDT) Anatomical Region Laterality Modality Lower Extremities, MSK, Knee Left Com puted Radiography 04/08/2025 3:06 AM EDT Narrative 04/08/2025 3:07 AM EDT XR KNEE LT 3 VWS INDICATION: Fall, [...] by Robby Rosales on 04/08/2025 3:07 AM Procedure Note Robby Rosales MD - 04/08/2025 XR KNEE LT 3 VWS INDICATION: Fall, pain COMPARISON: X-ray 2018 FINDINGS: No acute fracture or dislocation. Tricompartment degenerative changes,joint space narrowing and spurring. No large joint effusion. Soft tissuesare unremarkable. There are no radio opaque foreign bodies. Vascularcalcifications. IMPRESSION: No acute osseous abnormality of the left knee. Tricompartmental degenerative changes as described above. Finalized by Robby Rosales on 04/08/2025 3:07 AM Carlos Alberto Garcia DO [facility] [place] [facility] ORDERAB LES Final Result * X-ray knee right 3 views (04/08/2025 2:25 AM EDT) Anatomical Region Laterality Modality Lower Extremities, MSK, Knee Right Com puted Radiography 04/08/2025 3:16 AM EDT Narrative 04/08/2025 3:17 AM EDT XR KNEE RT 3 VWS INDICATION: Fall, pain COMPARISON: None FINDINGS: No acute fracture or dislocation. Tricompartment degenerative changes, greatest within the medial tibiofemoral and patellofemoral compartments, with joint space narrowing and spurring. No joint effusion. Vascular calcifications. Soft tissues are unremarkable. IMPRESSION: Acute osseous abnormality of the right knee. Degenerative changes as described above. Finalized by Robby Rosales on 04/08/2025 3:17 AM Procedure Note Robby Rosales MD - 04/08/2025 XR KNEE RT 3 VWS INDICATION: Fall, pain COMPARISON: None FINDINGS: No acute fracture or dislocation. Tricompartment degenerative changes,greatest within the medial tibiofemoral and patellofemoral compartments,with joint space narrowing and spurring. No joint effusion. Vascularcalcifications. Soft tissues are unremarkable. IMPRESSION: Acute osseous abnormality of the right knee. Degenerative changes as described above. Finalized by Robby Rosales on 04/08/2025 3:17 AM Carlos Alberto Garcia DO [facility] [place] [facility] ORDERAB LES Final Result * X-ray wrist right minimum 3 views (04/08/2025 2:25 AM EDT) Anatomical Region Laterality Modality MSK, Upper Extremities, Wrist Right Co mputed Radiography 04/08/2025 4:29 AM EDT Narrative 04/08/2025 4:30 AM EDT XR WRIST RT MIN 3 VWS INDICATION: [...] by Robby Rosales on 04/08/2025 4:30 AM Procedure Note Robby Rosales MD - 04/08/2025 XR WRIST RT MIN 3 VWS INDICATION: Wrist pain, fall COMPARISON: None FINDINGS: Diffuse osteopenia. No definite acute fracture or dislocation.Degenerative changes greatest at the first carpal metacarpal joint, withjoint space narrowing. Diffuse vascular calcifications. Soft tissues areunremarkable. No radiopaque foreign bodies. IMPRESSION: No definite acute fracture or dislocation. Diffuse osteopenia. Degenerative changes as described above. Finalized by Robby Rosales on 04/08/2025 4:30 AM Carlos Alberto Garcia DO [facility] [place] [facility] ORDERAB LES Final Result * CT cervical spine without contrast (04/08/2025 2:24 AM EDT) Anatomical Region Laterality Modality MSK, Neuro, Spine, C-spine, Spine Covera N/A Computed Tomography 04/08/2025 4:04 AM EDT Narrative 04/08/2025 4:08 AM EDT CLINICAL INFORMATION: Fall, pain. COMPARISON: None. PROCEDURE: Routine cervical spine protocol CT was obtained without intravenous contrast. Sagittal and coronal reformatted images were obtained from the axial data. Automated exposure control was utilized. FINDINGS: There is no acute fracture or dislocation. Vertebral body heights are maintained. Multilevel degenerative changes disc space narrowing greatest at C5-C6 and C6- C7. Scattered facet arthropathy. Moderate left neural foraminal narrowing at C5-C6. Lung apices are clear. IMPRESSION: 1. No fracture or malalignment. 2. Degenerative changes as above. All CT scans at this facility use dose modulation, iterative reconstruction, and/or weight based dosing when appropriate to reduce radiation dose to as low as reasonably achievable. Finalized by Robby Rosales on 04/08/2025 4:08 AM Procedure Note Robby Rosales MD - 04/08/2025 CLINICAL INFORMATION: Fall, pain. COMPARISON: None. PROCEDURE: Routine cervical spine protocol CT was obtained withoutintravenous contrast. Sagittal and coronal reformatted images wereobtained from the axial data. Automated exposure control was utilized. FINDINGS: There is no acute fracture or dislocation. Vertebral body heights aremaintained. Multilevel degenerative changes disc space narrowing greatestat C5-C6 and C6-C7. Scattered facet arthropathy. Moderate left neuralforaminal narrowing at C5-C6. Lung apices are clear. IMPRESSION: 1. No fracture or malalignment. 2. Degenerative changes as above. All CT scans at this facility use dose modulation, iterativereconstruction, and/or weight based dosing when appropriate to reduceradiation dose to as low as reasonably achievable. Finalized by Robby Rosales on 04/08/2025 4:08 AM Carlos Alberto Garcia DO IMG CT ORDERABLES Final Result * Fibrinogen (04/08/2025 2:14 AM EDT) FIBRINOGEN 299 190 - 480 mg/dL 04/08/2025 11:17 AM EDT [facility] Blood Venous blood / Unknown 04/08/2025 2:14 AM EDT 04/08/2025 2:18 AM EDT Carlos Alberto Garcia DO LAB BLOOD ORDERABLES Final Res ult [facility] [address] [place] [address], [place] [phone] * (ABNORMAL) Myoglobin, serum (04/08/2025 2:14 AM EDT) SERUM MYOGLOBIN 123.8(H) 14.3 - 65.8 ng/mL 04/08/2025 2:46 AM EDT [facility] Blood Venous blood / Unknown Venipuncture / Unknown 04/08/2025 2:14 AM EDT 04/08/2025 2:18 AM EDT Carlos Alberto Garcia DO LAB BLOOD ORDERABLES Final Res ult Performing Organization Address City/[facility]/ZIP Co de Phone Number [address] [place] [address], [place] * CK Total (04/08/2025 2:14 AM EDT) CPK 55 24 - 170 U/L 04/08/2025 2:38 AM EDT [facility] Blood Venous blood / Unknown Venipuncture / Unknown 04/08/2025 2:14 AM EDT 04/08/2025 2:18 AM EDT Carlos Alberto Garcia DO LAB BLOOD ORDERABLES Final Res ult Performing Organization Address City/[facility]/ZIP Co de Phone Number [address] [place] [address], [place] * (ABNORMAL) Liver panel (04/08/2025 2:14 AM EDT) TOTAL PROTEIN 6.2 6.0 - 8.0 g/dL 04/08/2025 2:38 AM EDT [facility] ALBUMIN 3.4 3.2 - 5.3 g/dL 04/08/2025 2:38 AM EDT [facility] BILIRUBIN,TOTAL 0.6 0.3 - 1.2 mg/dL 04/08/2025 2:38 AM EDT [facility] ALKALINE PHOSPHATASE 100 39 - 130 U/L 04/08/2025 2:38 AM EDT [facility] AST 174(H) <=41 U/L 04/08/2025 2:38 AM EDT [facility] ALT 128(H) <=31 U/L 04/08/2025 2:38 AM EDT [facility] BILIRUBIN,DIRECT 0.2 <=0.4 mg/dL 04/08/2025 2:38 AM EDT [facility] Blood Venous blood / Unknown Venipuncture / Unknown 04/08/2025 2:14 AM EDT 04/08/2025 2:18 AM EDT Carlos Alberto Garcia DO LAB BLOOD ORDERABLES Final Res ult Performing Organization Address [facility] Phone Number [facility] [address] [place] [address], * Critical Care (04/08/2025 1:44 AM EDT) Carlos Alberto Burgos DO - 04/08/2025 1:44 AM EDT Carlos Alberto Garcia DO 04/15/2025 7:47 AM Critical Care Performed by: Carlos Alberto Garcia DO Authorized by: Carlos Alberto Garcia DO Critical care provider statement: Critical care time (minutes): 35 Critical care time was exclusive of: Separately billable procedures and treating other patients and teaching time Critical care was necessary to treat or prevent imminent or life-threatening deterioration of the following conditions: APARTMENT COMMUNITY ASSISTANT MANAGER failure or compromise and trauma Critical care was time spent personally by me on the following activities: Development of treatment plan with patient or surrogate, discussions with consultants, evaluation of patient's response to treatment, examination of patient, obtaining history from patient or surrogate, ordering and performing treatments and interventions, ordering and review of laboratory studies, ordering and review of radiographic studies, pulse oximetry, re-evaluation of patient's condition and review of old charts Care discussed with: accepting provider at another facility Carlos Alberto Garcia DO PROCEDURE/MINOR SURGICAL ORDER ABDOULAYE Final Result * Troponin I, High Sensitivity 1 Hour (04/07/2025 8:30 PM EDT) TROPONIN I, HIGH SENSITIVITY 10 <16 ng/L 04/07/2025 9:00 PM EDT [facility] Blood Venous blood / Unknown Venipuncture / Unknown 04/07/2025 8:30 PM EDT 04/07/2025 8:33 PM EDT Christohpe Cox MD LAB BLOOD ORDERABLES Final Resu lt Performing Organization Address City/State/[facility] Co de Phone Number [address] [place] [address], [place] * Troponin I, High Sensitivity 0 Hour (04/07/2025 7:56 PM EDT) TROPONIN I, HIGH SENSITIVITY 11 <16 ng/L 04/07/2025 8:36 PM EDT [facility] Blood Venous blood / Unknown Venipuncture / Unknown 04/07/2025 7:56 PM EDT 04/07/2025 8:03 PM EDT us Christophe Cox MD LAB BLOOD ORDERABLES Final Resu lt Performing Organization Address [facility] Co de Phone Number [address] [place] [address], [place] * Lipase (04/07/2025 7:56 PM EDT) LIPASE 28 17 - 40 U/L 04/07/2025 8:26 PM EDT [facility] Blood Venous blood / Unknown Venipuncture / Unknown 04/07/2025 7:56 PM EDT 04/07/2025 8:03 PM EDT us Christophe Cox MD LAB BLOOD ORDERABLES Final Resu lt Performing Organization Address [facility] Co de Phone Number [address] [place] [address], [place] * Iron and TIBC (03/22/2025 2:53 PM EDT) Only the most recent of3 resultswithin the time period is included. IRON 78 50 - 170 ug/dL 03/22/2025 7:27 PM EDT [facility] TRANSFERRIN 218 168 - 336 mg/dL 03/22/2025 7:27 PM EDT [facility] IRON BINDING 305 250 - 425 ug/dL 03/22/2025 7:27 PM EDT [facility] IRON SATURATION 26 15 - 50 % SATURATION 03/22/2025 7:27 PM EDT [facility] Blood Venous blood / Unknown Venipuncture / Unknown 03/22/2025 2:53 PM EDT 03/22/2025 2:53 PM EDT us Rowdy Riley MD LAB BLOOD ORDERABLES Final Resul t Performing Organization Address City/[facility]/ZIP Co de Phone Number [facility] [address] [place] [address], [place] [phone] * (ABNORMAL) Ferritin (03/22/2025 2:53 PM EDT) Only the most recent of3 resultswithin the time period is included. FERRITIN 346(H) 11 - 307 ng/mL 03/22/2025 7:42 PM EDT [facility] Blood Venous blood / Unknown Venipuncture / Unknown 03/22/2025 2:53 PM EDT 03/22/2025 2:53 PM EDT us Rowdy Riley MD LAB BLOOD ORDERABLES Final Resul t Performing Organization Address [facility]/ZIP Co de Phone Number [facility] [address] [place] [address], [place] [phone] * Parathyroid Hormone, intact (02/23/2025 3:26 PM EDT) PTH INTACT 51 12 - 88 pg/mL 02/23/2025 11:22 PM EDT [facility] Blood Venous blood / Unknown Venipuncture / Unknown 02/23/2025 3:26 PM EDT 02/23/2025 3:26 PM EDT Triston Ramirez MD LAB BLOOD ORDERABLES Final Resu lt Performing Organization Address City/[facility]/ZIP Co de Phone Number [facility] [address] [place] [address], [place] [phone] * (ABNORMAL) Microalbumin - Albumin: Creatinine Urine Ratio (02/23/2025 3:26 PM EDT) URINE CREATININE,RDM 47.31 mg/dL 02/23/2025 11:07 PM EDT [facility] MALB/CREAT RATIO 196.6(H) 0.0 - 30.0 mg/g 02/23/2025 11:07 PM EDT [facility] MICROALBUMIN, URINE 9.3(H) 0.0 - 1.9 mg/dL 02/23/2025 11:07 PM EDT [facility] Urine Urine specimen collection, clean catch / Unknown Collection / Unknown 02/23/2025 3:26 PM EDT 02/23/2025 3:26 PM EDT Triston Ramirez MD URINE ORDERABLES Final Result [facility] [address] [place] [phone], * Vitamin D 25 hydroxy (02/23/2025 3:26 PM EDT) VITAMIN D 25 HYD TOT 87.3 30.0 - 100.0 ng/mL 02/23/2025 11:30 PM EDT [facility] Blood Venous blood / Unknown Venipuncture / Unknown 02/23/2025 3:26 PM EDT 02/23/2025 3:26 PM EDT Narrative [facility] - 02/23/2025 11:30 PM EDT Vitamin D status 25 [place] Vitamin D Deficiency <20 ng/mL Insufficiency 20-29 ng/mL Sufficiency 30-100 ng/mL Toxicity >100 ng/mL NOTE: A pediatric reference range has not been established by the assistant bookkeeper of this kit. The [place] [employer] recommends a Vitamin D level of = or >20ng/mL in infants and children. us Triston Ramirez MD LAB BLOOD ORDERABLES Final Resu lt Performing Organization Address City/[facility]/ZIP Co de Phone Number [facility] [address] [place] [address], [place] [phone] * Uric acid (02/23/2025 3:26 PM EDT) URIC ACID 4.4 2.6 - 7.2 mg/dL 02/23/2025 11:09 PM EDT [facility] Blood Venous blood / Unknown Venipuncture / Unknown 02/23/2025 3:26 PM EDT 02/23/2025 3:26 PM EDT us Triston Ramirez MD LAB BLOOD ORDERABLES Final Resu lt Performing Organization Address [facility] Co de Phone Number [facility] [address] [place] [address], [place] [phone] * (ABNORMAL) Phosphorus (02/23/2025 3:26 PM EDT) PHOSPHORUS 5.1(H) 2.4 - 4.9 mg/dL 02/23/2025 11:09 PM EDT [facility] Blood Venous blood / Unknown Venipuncture / Unknown 02/23/2025 3:26 PM EDT 02/23/2025 3:26 PM EDT us Triston Ramirez MD LAB BLOOD ORDERABLES Final Resu lt Performing Organization Address City/[facility]/ZIP Co de Phone Number [facility] [address] [place] [address], [place] [phone] * Albumin (02/23/2025 3:26 PM EDT) ALBUMIN 3.7 3.2 - 5.3 g/dL 02/23/2025 11:09 PM EDT [facility] Blood Venous blood / Unknown Venipuncture / Unknown 02/23/2025 3:26 PM EDT 02/23/2025 3:26 PM EDT Triston Ramirez MD LAB BLOOD ORDERABLES Final Resu lt [facility] [address] [place] [address], [place] [phone] from Last 3 Months Insurance [employer] MED[employer] PENDING MEDICAID-FOR PFA/VENDORS ONLY Member Subscriber Plan / Payer (Ef fective 2025-Present) Name:Irma Caceres Member ID:Not on file Relation to Subscriber:Self Name:Irma Caceres Subscriber ID:Not on file Payer ID:Not on file Group ID:Not on file Type:Not on file Address: N/A Advance Directives Documents on File Type Date Recorded Patient Shuffle Board Operator Expl anation DNR Physician Order 06/19/2021 12:50 PM * Full Code (Latest Code Status on File) Date Activated Date Inactivated Comments 05/02/2025 11:51 PM 05/11/2025 6:28 PM * Full Code Date Activated Date Inactivated Comments 04/08/2025 8:18 AM 04/12/2025 10:24 PM * Full Code Date Activated Date Inactivated Comments 09/18/2024 11:28 PM 09/23/2024 2:09 PM * Full Code Date Activated Date Inactivated Comments 04/04/2023 10:13 PM 04/10/2023 5:33 PM * Full Code Date Activated Date Inactivated Comments 03/29/2023 6:13 PM 03/31/2023 6:16 PM Care Teams Engrosser Relationship Specialty Start Date End Date Dagmar Hernandez, FIELD CONTROL INSPECTOR-SUPERVISOR [employer] [address] [place] [address] PCP - General Nurse Practitioner 06/19/24
--- OUTSIDE RECORDS SUMMARY | 2025-05-20 07:35 | XMS_ITS | Encounter Summary ---
Author Organization [employer] Address [facility] [place]-[id number] [address] [place] [address] Care Team Providers Care Industrial Automation Specialist Name Role Phone Dagmar Hernandez BILLING DEPARTMENT SUPERVISOR-BLASTING CLAY MINER Primary Care Pro vider Encounter Details Date Type Department Care Team (Late st Contact Info) Description 05/11/2025 [facility] [address] [phone] Tara Carty CMA Social History Tobacco Use Types Packs/Day Years Used Date Smoking Tobacco: Former Cigarettes 0.5 10 1 975 - 1985 Smokeless Tobacco: Never Alcohol Use Standard Drinks/Week Comments Not Currently 0 (1 standard drink = 0.6 oz pur e alcohol) [facility] Utilities Answer Date Recorded In the past 12 months has [employer], gas, oil, or water [employer] threatened to shut off services in your [...] encounter Miscellaneous Notes * Telephone Encounter - Tara Carty CMA - 05/11/2025 10:59 AM EDT 05/11/2025-LENGTH CONTROL TESTER REFERRAL LOBO PERDUE PAROXYSMAL ATRIAL FIBRILLATION, ASCVD-NOT LENGTH CONTROL TESTER LS MAS 03/10/2025-PHONED PT AND LM ON TO CALL OFFICE TO SCHEDULE APPT JSL documented in this encounter Plan of Treatment Upcoming Encounters Date Type Department Care Team (Late st Contact Info) Description 05/21/2025 9:30 AM EDT [facility] [address] [place] [phone] 05/25/2025 10:15 AM EDT Office Visit [facility] General Surgery [address] [place] [phone] Kelvin Myles MD [address] [place] [phone] 06/03/2025 11:15 AM EDT [facility] [address] [place] [phone] Rowdy Riley MD [address] [place] [address] 07/29/2025 3:30 PM EDT Office Visit [facility] A Department of [facility] [address] [phone] [facility] [address] [phone] 07/30/2025 2:30 PM EDT [facility] [address] [place] [phone] Rowdy Riley MD [address] [place], [place] [id number] documented as of this encounter Goals Goal [...] documented as of this encounter Care Teams Industrial Automation Specialist Relationship Specialty Start Date End Date Dagmar Hernandez, BILLING DEPARTMENT SUPERVISOR-BLASTING CLAY MINER [address] [place] [phone] PCP - General Nurse Practitioner 06/19/24 documented as of this encounter
[2025-05-20 07:45] LABS: Hemoglobin 7.2 g/dL (12.0-16.0); Immature Granulocytes Abs Auto 0.04 10^3/uL (0.00-0.03); Immature Granulocytes Pct Auto 0.7 % (0.0-0.5); Lymphocytes Absolute Auto 1.7 10^3/uL (1.2-3.8); Mean Corpuscular HGB Conc 32.1 g/dL (29.9-35.2); Mean Corpuscular Hemoglobin 29.4 pg (26.7-34.0); Mean Corpuscular Volume 91.4 fL (81.0-99.0); Platelet Count 204 10^3/uL (150-450); Red Blood Count 2.45 10^6/uL (4.20-5.40); White Blood Count 5.5 10^3/uL (4.0-11.0)
[2025-05-20 07:49] LABS: Hematocrit 22.4 % (36.0-48.0)
--- NOTE | 2025-05-20 07:49 | CT_ITS ---
The [address] [address] Patient Name: MACY ACHARYA MRN: [id number] date: 1945 Sex: F Assigned Patient Location: ER Current Patient Location: ER Accession/Order Number: [id number] Exam Date: 05/20/2025 08:38 Report Date: 05/20/2025 08:47 At the request of: ASHLEE BROCK MD Procedure: CT abdomen pelvis wo con CT abdomen pelvis wo con 05/20/2025 8:12 AM SIGNS AND SYMPTOMS: ^fall and anemia TECHNIQUE: Multidetector ct axial images of the abdomen and pelvis were obtained without IV contrast. Multiplanar reformats were performed and reviewed to further define anatomy and possible pathology. CT was performed with one or more of the following dose reduction techniques: Automated exposure control, adjustment of the mA and/or kV according to patient size, or use of iterative reconstruction technique. COMPARISON: None. FINDINGS: Lower Chest: Atherosclerotic changes are noted thoracic aorta and along the mitral annulus. There is mild dependent airspace opacity. ABDOMEN: Liver: Calcified granulomas are noted in the liver. Bile Ducts: Normal caliber. Gallbladder: Previously removed. Pancreas: Within normal limits. Spleen: Calcified granulomas are present in the spleen. Adrenals: There is a 2.1 cm right adrenal nodule is unchanged when compared to the prior exam. Kidneys: There is renal cortical atrophy with vascular calcifications in the renal nhi bilaterally. Pelvis: Reproductive Organs: No pelvic masses. Ureters: Within normal limits. Bladder: Within normal limits. Bowel: There are uncomplicated colonic diverticula. Mesenteric Lymph Nodes: No enlarged mesenteric lymph nodes. Peritoneum: No ascites or free air, no fluid collection. Vessels: Atherosclerotic changes are noted in the abdominal aorta and its branches. Retroperitoneum: Within normal limits. Abdominal Wall: Within normal limits. Bones: Degenerative changes are noted in the thoracolumbar spine, hips, and sacroiliac joints. CT/CT abdomen pelvis wo con IMPRESSION: No acute traumatic injury within the abdomen or pelvis. No evidence of fracture. Impression dictated by: Luis Nascimento M.D. 05/20/2025 8:47 AM Dictation Location: [place] [address] Electronically authenticated by: [id number] Y Date: 05/20/2025 08:47
[2025-05-20 07:54] LABS: ABG PCO2 40.0 mmHg (35.0-45.0); HCO3 ABG 25.1 mmol/L (22.0-26.0); Oxygen Saturation ABG 97.6 %; PO2 ABG 90.0 mmHg (80.0-100.0)
[2025-05-20 07:55] LABS: Allen Test POSITIVE (POSITIVE); O2 Mode CPAP; Puncture Site RR
[2025-05-20] MEDS: DEXTROSE 10 % IN WATER 1,000 ML 100 ML IV (07:55)
--- NOTE | 2025-05-20 07:58 | ED.AMS1 ---
HPI - Altered Mental Status General Chief Complaint: Altered Mental Status Stated Complaint: WEAKNESS Time Seen by Provider: 05/20/25 07:26 Source: caregiver and medical record Mode of arrival: ambulance Limitations: altered mental status History of Present Illness HPI narrative: The patient is a 80-year-old female is coming to the ER with a history of A-fib as well as coronary artery disease on Plavix as well as Eliquis, patient had a fall yesterday when she apparently was trying to get out of the bed and she found herself on the floor, it was noted today though that the patient is not acting herself and she is sleepy, she is not responsive as she usually is and the nurse initially measured her blood sugar in the custodial and found it was around 41 and she gave her something by mouth after which the blood sugar went up to about 100 The patient also have a history of a diabetes and the A-fib in addition pretension and chronic anemia and chronic kidney disease In the ER the patient blood sugar initially was found to be 37 initially she was sleepy but after giving her dextrose she was able to provide me the history mentioned that she did eat last night and she was doing okay after the fall , she was complaining of right hip pain in addition to her muscles were hurting She mentioned that she have upper and lower extremity muscle pain but there is no specific pain in her right or left side It was noted that the patient had bruises in the lower extremity from the fall as well as in the right side of the face The EMS put the on the CPAP before arrival and the patient was on 2 L nasal cannula in the [facility] facility Related Data Home Medications ?Medication ?Instructions ?Recorded ?Confirmed acetaminophen 325 mg capsule 650 mg PO Q6H PRN pain 05/01/25 05/20/25 allopurinol 300 mg tablet 300 mg PO .QD 05/01/25 05/20/25 amiodarone 200 mg tablet 200 mg PO Q12H 05/01/25 05/20/25 apixaban 5 mg tablet (Eliquis) 5 mg PO Q12H 05/01/25 05/20/25 atorvastatin 80 mg tablet 80 mg PO BEDTIME 05/01/25 05/20/25 clopidogrel 75 mg tablet 75 mg PO QDAY 05/01/25 05/20/25 cyanocobalamin (vitamin B-12) 1,000 mcg PO DAILY 05/01/25 05/20/25 1,000 mcg capsule ferrous sulfate 325 mg (65 mg 325 mg PO DAILY 05/01/25 05/20/25 iron) tablet (FeroSul) insulin degludec 100 unit/mL (3 20 unit subcut BEDTIME 05/01/25 05/20/25 mL) subcutaneous pen (Tresiba FlexTouch U-100 insulin) isosorbide mononitrate 30 mg 30 mg PO .Q24 05/01/25 05/20/25 tablet,extended release 24 hr metoprolol tartrate 25 mg tablet 25 mg PO Q12H 05/01/25 05/20/25 pantoprazole 40 mg tablet,delayed 40 mg PO QDAY 05/01/25 05/20/25 release polyethylene glycol 3350 17 17 g PO QDAY PRN constipation 05/01/25 05/20/25 gram/dose oral powder (ClearLax) pregabalin 75 mg capsule 75 mg PO .COMPLEX 05/01/25 05/20/25 semaglutide 0.25 mg or 0.5 mg (2 0.5 mg subcut QWEEK 05/01/25 05/20/25 mg/1.5 mL) subcutaneous pen injector (Ozempic) torsemide 10 mg tablet 10 mg PO QDAY 05/01/25 05/20/25 insulin lispro 100 unit/mL 1 sliding scale dose subcut 05/20/25 05/20/25 subcutaneous cartridge USEASDIRECTD mupirocin 2 % topical ointment 1 applic topical BID 05/20/25 05/20/25 tamsulosin 0.4 mg capsule (Flomax) 0.4 mg PO BEDTIME 05/20/25 05/20/25 Allergies Allergy/AdvReac Type Severity Reaction Status Date / Time codeine Allergy Palpitation Verified 05/01/25 11:29 s sulfamethoxazole (From AdvReac Abdominal Verified 05/01/25 11:29 Bactrim) Pain trimethoprim (From Bactrim) AdvReac Abdominal Verified 05/01/25 11:29 Pain Review of Systems ROS Status of ROS 10 or more systems reviewed and unremarkable except as noted in history and below PFSH PFSH Social History Little interest or pleasure in doing things: not at all Feeling down, depressed, or hopeless: not at all Exam Narrative Exam Narrative: Nurses notes and vital signs reviewed and patient initially was pale and on CPAP upon arrival General: Patient have bruising the right side of the face on CPAP not show any distress but she wakes up easily to calling her name Skin: Warm, dry, no pallor noted. Bruises scattered in the lower extremity mostly the tibia anteriorly but there are no tenderness on palpation Head: Normocephalic, there is a old hematoma to the left frontal area that is healing, right cheek small hematoma also noted 1 by 2 cm Neck: Supple, non-tender. Eye: Pupils are equal, round and EOMI. No scleral icterus. Cardiovascular: Regular Rate and Rhythm without murmur, gallop or rub. Respiratory: No accessory muscle use or respiratory distress. Lungs the patient have rhonchi heard in both lung urrutia as well as distant breathing sound at the apex of the lung, distant rhonchi in the bases Chest Wall: no tenderness Musculoskeletal: normal ROM, there is bruises in the anterior of both lower extremities but the patient have no vascular injury detected, the patient have 2+ pitting edema bilaterally up to the level of the knee GI: Abdomen is soft, non-distended. Normal bowel sounds. No masses appreciated. There is bruises also on the skin anteriorly that is scattered but they are mostly secondary to subcutaneous injection there is no bruise over the left upper quadrant No tenderness to palpation. No rebound, guarding, or rigidity noted. Neurological: A&O x4 after the dextrose but before that the patient is sleepy and wakes up easily when her name is called, no cranial nerve dysfunction observed. No truncal ataxia. Moves all extremities. Psychiatric: Cooperative and interactive. Normal mood and affect. Constitutional Vital Signs, click to edit/add: Last Vital Signs Temp 97.4 F L 05/20/25 07:26 Pulse 64 05/20/25 08:40 Resp 19 05/20/25 08:40 BP 124/50 05/20/25 08:32 Pulse Ox 98 05/20/25 08:40 O2 Del Method Nasal Cannula 05/20/25 08:18 O2 Flow Rate 4 05/20/25 08:18 FiO2 35 05/20/25 07:28 Course Vital Signs Vital signs: Vital Signs Temperature 97.4 F L 05/20/25 07:26 Pulse Rate 58 L 05/20/25 07:26 Respiratory Rate 21 H 05/20/25 07:26 Blood Pressure 113/52 05/20/25 07:26 Pulse Oximetry 99 05/20/25 07:26 Oxygen Delivery Method BIPAP 05/20/25 07:26 Temperature 97.4 F L 05/20/25 07:26 Pulse Rate 64 05/20/25 08:40 Respiratory Rate 19 05/20/25 08:40 Blood Pressure 124/50 05/20/25 08:32 Pulse Oximetry 98 05/20/25 08:40 Oxygen Delivery Method Nasal Cannula 05/20/25 08:18 Oxygen Delivery Flow Rate 4 05/20/25 08:18 Fraction of Inspired Oxygen 35 05/20/25 07:28 MDM - Altered Mental Status MDM Narrative Medical decision making narrative: The patient EKG showing sinus rhythm with a heart rate of [address] elevation or depression Initially the patient blood sugar was 37 she was given dextrose 50 and for the fact that the patient that she had blood sugar of 41 in the [facility] at least twice it was concerning that the patient will need dextrose D10 and that was ordered to be at the bedside in case needed The patient also was hypoxemic on arrival of the EMS and that is why they mentioned that her pulse ox was in the upper 80s and they started on CPAP right away and that was continued in the ER Repeated blood sugar was 111 and the plan was to recheck that in half an hour The patient chemistry showing chronic kidney disease and her BNP up as above 4900 The patient apparently was taking Lasix in her medication list but it was not given for the last few days for some reason ABGs shows normal results with no CO2 retention the patient mentation is better after the dextrose the patient was placed on nasal cannula after she initially arrived with the CPAP On nasal cannula the patient saturating 99% on 2 L I reviewed the patient papers from the [facility] facility and there was no documentation of any congestive heart failure diagnosis before but the patient was taking Lasix and torsemide and the patient had only torsemide in her medication right now The patient upon arrival also was having obvious rhonchi was suspected picture of CHF exacerbation and fluid overload especially with the patient not using oxygen in the custodial and now requiring oxygen After placing Marino catheter the patient had the Lasix started at 20 mg IV Repeated blood sugar after half an hour dropped down to 65 again and the patient was started on D10 100 cc/h and she will be started also on her breakfast meal The patient CT of the head showed no acute pathology she does have the hematoma from her previous fall The patient also had a CT of the abdomen pelvis with no acute pathology detected her hemoglobin was found to be 7.2 and the blood workup today but the patient also had a blood workup from April 26 with the same number The patient case discussed with and he agreed with above-mentioned plan Lab Data Labs: Lab Results 05/20/25 05/20/25 05/20/25 Range/Units 07:30 07:39 07:49 WBC 5.5 (4.0-11.0) 10^3/uL RBC 2.45 L (4.20-5.40) 10^6/uL Hgb 7.2 L (12.0-16.0) g/dL Hct 22.4 L* (36.0-48.0) % MCV 91.4 (81.0-99.0) fL MCH 29.4 (26.7-34.0) pg MCHC 32.1 (29.9-35.2) g/dL RDW 19.0 H (11.0-15.0) % Plt Count 204 (150-450) 10^3/uL MPV 11.8 (9.5-13.5) fL Neut % (Auto) 53.0 (43.0-75.0) % Lymph % (Auto) 31.8 (20.5-60.0) % Dukes % (Auto) 13.3 H (1.7-12.0) % Eos % (Auto) 0.5 L (0.9-7.0) % Baso % (Auto) 0.7 (0.2-2.0) % Neut # (Auto) 2.9 (1.4-6.5) 10^3/uL Lymph # (Auto) 1.7 (1.2-3.8) 10^3/uL Dukes # (Auto) 0.7 (0.3-0.8) 10^3/uL Eos # (Auto) 0.0 (0.0-0.7) 10^3/uL Baso # (Auto) 0.0 (0.0-0.1) 10^3/uL Abs Immat Gran (auto) 0.04 H (0.00-0.03) 10^3/uL Imm/Tot Granulo (auto) 0.7 H (0.0-0.5) % PT 12.6 H (9.0-11.6) sec INR 1.21 Puncture Site Rr ABG pH 7.406 (7.350-7.450) ABG pCO2 40.0 (35.0-45.0) mmHg ABG pO2 90.0 (80.0-100.0) mmHg ABG HCO3 25.1 (22.0-26.0) mmol/L ABG O2 Saturation 97.6 % ABG Base Excess 0.4 (-2.0-2.0) mmol/L Samy Test Positive (POSITIVE) Minute Volume 6.8 FiO2 35 % Tidal Volume 342 Pressure Support 10 Sodium 137 (136-145) mmol/L Potassium 4.9 (3.5-5.1) mmol/L Chloride 104 (98-107) mmol/L Carbon Dioxide 28.4 (21.0-32.0) mmol/L Anion Gap 9.5 BUN 65.0 H (7.0-18.0) mg/dL Creatinine 2.52 H (0.55-1.02) mg/dL Est GFR ( Amer) 22 L (>=60 mL/min/1.73m^2) Est GFR (Non-Af Amer) 18 L (>=60 mL/min/1.73m^2) BUN/Creatinine Ratio 25.8 Glucose 167 H (74-106) mg/dL Lactate 0.7 (0.4-2.0) mmol/L Calcium 8.1 L (8.5-10.1) mg/dL Magnesium 1.8 (1.8-2.4) mg/dL Total Bilirubin 0.6 (0.2-1.0) mg/dL AST 49 H (15-37) U/L ALT 37 (14-59) U/L Alkaline Phosphatase 148 H (46-116) U/L Troponin I High Sens 28.0 (4.0-51.3) pg/mL NT-Pro-B Natriuret Pep 4987.0 H* (<=1800.0) pg/mL Total Protein 5.1 L (6.4-8.2) g/dL Albumin 2.1 L (3.4-5.0) g/dL Globulin 3.0 g/dL Albumin/Globulin Ratio 0.7 POC Glucose 37 L* (74-106) mg/dL 05/20/25 05/20/25 Range/Units 07:54 08:53 WBC (4.0-11.0) 10^3/uL RBC (4.20-5.40) 10^6/uL Hgb (12.0-16.0) g/dL Hct (36.0-48.0) % MCV (81.0-99.0) fL MCH (26.7-34.0) pg MCHC (29.9-35.2) g/dL RDW (11.0-15.0) % Plt Count (150-450) 10^3/uL MPV (9.5-13.5) fL Neut % (Auto) (43.0-75.0) % Lymph % (Auto) (20.5-60.0) % Dukes % (Auto) (1.7-12.0) % Eos % (Auto) (0.9-7.0) % Baso % (Auto) (0.2-2.0) % Neut # (Auto) (1.4-6.5) 10^3/uL Lymph # (Auto) (1.2-3.8) 10^3/uL Dukes # (Auto) (0.3-0.8) 10^3/uL Eos # (Auto) (0.0-0.7) 10^3/uL Baso # (Auto) (0.0-0.1) 10^3/uL Abs Immat Gran (auto) (0.00-0.03) 10^3/uL Imm/Tot Granulo (auto) (0.0-0.5) % PT (9.0-11.6) sec INR Puncture Site ABG pH (7.350-7.450) ABG pCO2 (35.0-45.0) mmHg ABG pO2 (80.0-100.0) mmHg ABG HCO3 (22.0-26.0) mmol/L ABG O2 Saturation % ABG Base Excess (-2.0-2.0) mmol/L Samy Test (POSITIVE) Minute Volume FiO2 % Tidal Volume Pressure Support Sodium (136-145) mmol/L Potassium (3.5-5.1) mmol/L Chloride (98-107) mmol/L Carbon Dioxide (21.0-32.0) mmol/L Anion Gap BUN (7.0-18.0) mg/dL Creatinine (0.55-1.02) mg/dL Est GFR ( Amer) (>=60 mL/min/1.73m^2) Est GFR (Non-Af Amer) (>=60 mL/min/1.73m^2) BUN/Creatinine Ratio Glucose (74-106) mg/dL Lactate (0.4-2.0) mmol/L Calcium (8.5-10.1) mg/dL Magnesium (1.8-2.4) mg/dL Total Bilirubin (0.2-1.0) mg/dL AST (15-37) U/L ALT (14-59) U/L Alkaline Phosphatase (46-116) U/L Troponin I High Sens (4.0-51.3) pg/mL NT-Pro-B Natriuret Pep (<=1800.0) pg/mL Total Protein (6.4-8.2) g/dL Albumin (3.4-5.0) g/dL Globulin g/dL Albumin/Globulin Ratio POC Glucose 111 H 65 L (74-106) mg/dL Discharge Plan Discharge Chief Complaint: Altered Mental Status Clinical Impression: Fall, AMS (altered mental status), Hypoglycemia, Anemia, chronic disease, CHF (congestive heart failure), Hypoxemia Prescriptions / Home Meds: No Action allopurinol 300 mg tablet 300 mg PO .QD amiodarone 200 mg tablet 200 mg PO Q12H Eliquis 5 mg tablet 5 mg PO Q12H atorvastatin 80 mg tablet 80 mg PO BEDTIME clopidogrel 75 mg tablet 75 mg PO QDAY ferrous sulfate [FeroSul] 325 mg (65 mg iron) tablet 325 mg PO DAILY isosorbide mononitrate 30 mg tablet extended release 24 hr 30 mg PO .Q24 metoprolol tartrate 25 mg tablet 25 mg PO Q12H polyethylene glycol 3350 [ClearLax] 17 gram/dose powder 17 g PO QDAY PRN (Reason: constipation) Ozempic 0.25 mg or 0.5 mg(2 mg/1.5 mL) pen injector 0.5 mg subcut QWEEK Rx Instructions: for 4 weeks pantoprazole 40 mg tablet,delayed release (DR/EC) 40 mg PO QDAY pregabalin 75 mg capsule 75 mg PO .COMPLEX Rx Instructions: 75 mg orally BID AND 150mg at bedtime; torsemide 10 mg tablet 10 mg PO QDAY insulin degludec [Tresiba FlexTouch U-100] 100 unit/mL (3 mL) insulin pen 20 unit subcut BEDTIME cyanocobalamin (vitamin B-12) 1,000 mcg capsule 1,000 mcg PO DAILY acetaminophen 325 mg capsule 650 mg PO Q6H PRN (Reason: pain) insulin lispro 100 unit/mL cartridge 1 sliding scale dose subcut USEASDIRECTD mupirocin 2 % ointment 1 applic TOPICAL BID tamsulosin [Flomax] 0.4 mg capsule 0.4 mg PO BEDTIME Print Language: Filipino Referrals: [facility] [Primary Care Provider, Unknown] - 1 week
[2025-05-20 08:00] LABS: Alanine Aminotransferase 37 U/L (14-59); Albumin Globulin Ratio 0.7; Albumin Level 2.1 g/dL (3.4-5.0); Alkaline Phosphatase 148 U/L (46-116); Anion Gap 9.5; Aspartate Amino Transferase 49 U/L (15-37); Blood Urea Nitrogen 65.0 mg/dL (7.0-18.0); Calcium 8.1 mg/dL (8.5-10.1); Carbon Dioxide 28.4 mmol/L (21.0-32.0); Chloride 104 mmol/L (98-107); Estimated GFR (African America 22 (>=60 mL/min/1.73m^2); Estimated GFR (Non-African Ame 18 (>=60 mL/min/1.73m^2); Globulin 3.0 g/dL; Glucose 167 mg/dL (74-106); Potassium 4.9 mmol/L (3.5-5.1); Sodium 137 mmol/L (136-145); Total Protein 5.1 g/dL (6.4-8.2)
[2025-05-20 08:02] LABS: INR 1.21; Prothrombin Time 12.6 sec (9.0-11.6)
[2025-05-20 08:03] LABS: Lactate/Lactic Acid 0.7 mmol/L (0.4-2.0)
[2025-05-20 08:09] LABS: Magnesium 1.8 mg/dL (1.8-2.4)
[2025-05-20 08:13] LABS: NT Pro B Type Natriuretic Pept 4987.0 pg/mL (<=1800.0)
[2025-05-20] MEDS: FUROSEMIDE 20 MG/2 ML VIAL IVP ×3 (09:06→22:32)
[2025-05-20 09:36] LABS: Glucose Urine UA NEGATIVE (NEGATIVE)
[2025-05-20 09:54] LABS: Cast Seen? NONE SEEN #/LPF (NONE SEEN); Crystals Seen? None Seen #/HPF (None Seen)
[2025-05-20 09:55] LABS: Urine Culture Indicated YES-FRMC
--- NOTE | 2025-05-20 10:49 | PHOTOS ---
rt arm elbow hand
--- NOTE | 2025-05-20 12:52 | PM.HP ---
HPI H&P: HPI History of Present Illness Chief complaint: WEAKNESS, HYPOGLYCEMIA, CHF EXACERBATION,HYPOXEMIA Narrative: Mrs. Caceres is a 80-year-old female with a known diagnosis of renal failure, anemia and diabetes. [facility] She [facility] in and was found to have hypoglycemia repeatedly. No fever or chills. No seizure or convulsion. No hematemesis or melena. Patient has been very weak over the last few months requiring multiple admissions to skilled care. The patient is unable to stand up on her own. She is able to ambulate with a walker and assist. Opioid HPI Opioid Management Most Recent Pain and Opioid Data: Last Pain Scale 8 Today, 11:00 Last Pain Assessment Today, 11:00 Last ORT Total Score 2 Today, 10:35 Last ORT Risk Category Low Risk Today, 10:35 Review of Systems ROS Status of ROS 10 or more systems reviewed and unremarkable except as noted in history and below [facility] Medical History (Updated 05/20/25 @ 12:54 by Otis Lockhart MD) Iron deficiency anemia ?D50.9 - Iron deficiency anemia, unspecified (ICD-10) Spondylosis ?M47.9 - Spondylosis, unspecified (ICD-10) Gout ?M10.9 - Gout, unspecified (ICD-10) Osteoporosis ?M81.0 - Age-related osteoporosis without current pathological fracture (ICD-10) Urinary incontinence ?R32 - Unspecified urinary incontinence (ICD-10) History of depression ?Z86.59 - Personal history of other mental and behavioral disorders (ICD-10) Colitis ?K52.9 - Noninfective gastroenteritis and colitis, unspecified (ICD-10) Heart disease ?I51.9 - Heart disease, unspecified (ICD-10) Hyperlipidemia ?E78.5 - Hyperlipidemia, unspecified (ICD-10) Chronic kidney disease ?N18.9 - Chronic kidney disease, unspecified (ICD-10) Polyneuropathy ?G62.9 - Polyneuropathy, unspecified (ICD-10) Anemia ?D64.9 - Anemia, unspecified (ICD-10) A-fib ?I48.91 - Unspecified atrial fibrillation (ICD-10) Diabetes ?E11.9 - Type 2 diabetes mellitus without complications (ICD-10) Surgical History (Updated 05/20/25 @ 11:40 by Cici Saleh) H/O heart artery stent ?Z95.5 - Presence of coronary angioplasty implant and graft (ICD-10) History of appendectomy ?Z90.49 - Acquired absence of other specified parts of digestive tract (ICD-10) H/O hernia repair ?Z98.890 - Other specified postprocedural states (ICD-10) ?Z87.19 - Personal history of other diseases of the digestive system (ICD-10) History of cholecystectomy ?Z90.49 - Acquired absence of other specified parts of digestive tract (ICD-10) H/O: hysterectomy ?Z90.710 - Acquired absence of both cervix and uterus (ICD-10) Family History (Updated 05/20/25 @ 11:41 by Cici Saleh) Mother Family history of cancer Family history of diabetes mellitus Sister Family history of diabetes mellitus Family history of hypertension Brother Family history of myocardial infarction Social History (Updated 05/20/25 @ 11:43 by Cici Saleh) Within the past year, how often did you have a drink containing alcohol: never Score interpretation: A score less than 3 is consistent with normal alcohol consumption. Smoking status: Former smoker Non-prescribed substance use: denies use Previous occupational history: retired Highest level of school completed/degree received: high school graduate Are you now , , , , never or living with a partner: Little interest or pleasure in doing things: not at all Feeling down, depressed, or hopeless: not at all Meds Home Medications and Allergies Home Medications ?Medication ?Instructions ?Recorded ?Confirmed ?Type acetaminophen 325 mg capsule 650 mg PO Q6H PRN pain 05/01/25 05/20/25 History allopurinol 300 mg tablet 300 mg PO DAILY 05/01/25 05/20/25 History amiodarone 200 mg tablet 200 mg PO Q12H 05/01/25 05/20/25 History apixaban 5 mg tablet (Eliquis) 5 mg PO Q12H 05/01/25 05/20/25 History atorvastatin 80 mg tablet 80 mg PO DAILY 05/01/25 05/20/25 History clopidogrel 75 mg tablet 75 mg PO DAILY 05/01/25 05/20/25 History cyanocobalamin (vitamin B-12) 1,000 mcg PO DAILY 05/01/25 05/20/25 History 1,000 mcg capsule ferrous sulfate 325 mg (65 mg 325 mg PO DAILY 05/01/25 05/20/25 History iron) tablet (FeroSul) insulin degludec 100 unit/mL (3 20 unit subcut BEDTIME 05/01/25 05/20/25 History mL) subcutaneous pen (Tresiba FlexTouch U-100 insulin) isosorbide mononitrate 30 mg 30 mg PO DAILY 05/01/25 05/20/25 History tablet,extended release 24 hr metoprolol tartrate 25 mg tablet 25 mg PO Q12H 05/01/25 05/20/25 History pantoprazole 40 mg tablet,delayed 40 mg PO QDAY 05/01/25 05/20/25 History release polyethylene glycol 3350 17 17 g PO QDAY PRN constipation 05/01/25 05/20/25 History gram/dose oral powder (ClearLax) pregabalin 75 mg capsule 75 mg PO BID@0800,1400 05/01/25 05/20/25 History semaglutide 0.25 mg or 0.5 mg (2 0.5 mg subcut QWEEK 05/01/25 05/20/25 History mg/1.5 mL) subcutaneous pen injector (Ozempic) insulin lispro 100 unit/mL 2 - 10 unit subcut ACHS 05/20/25 05/20/25 History subcutaneous cartridge mupirocin 2 % topical ointment 1 applic topical BID 05/20/25 05/20/25 History pregabalin 75 mg capsule (Lyrica) 150 mg PO .QHS 05/20/25 05/20/25 History tamsulosin 0.4 mg capsule (Flomax) 0.4 mg PO BEDTIME 05/20/25 05/20/25 History torsemide 10 mg tablet 10 mg PO DAILY 05/20/25 05/20/25 History Allergies Allergy/AdvReac Type Severity Reaction Status Date / Time codeine Allergy Palpitation Verified 05/01/25 11:29 s sulfamethoxazole (From AdvReac Abdominal Verified 05/01/25 11:29 Bactrim) Pain trimethoprim (From Bactrim) AdvReac Abdominal Verified 05/01/25 11:29 Pain Exam Narrative Exam Narrative: Morbidly obese. Pale skin and buccal mucosa. Mild tachypnea. Patient is on oxygen. No JVD noted. Chest exam revealed crackles. Heart is regular. Abdomen is soft. Increased abdominal girth therefore her abdominal exam is inconclusive. No tenderness. Lower extremities +2 pitting edema. Function is very poor. Patient is unable to change position in bed. Able to move her legs sideways. Able to lift upper arms against gravity. Cognition is fairly preserved. Patient is able to understand conversation related to her health. Able to answer questions. Able to provide information. Able to engage. Constitutional Vital Signs, click to edit/add: Last Vital Signs Temp 98.1 F 05/20/25 10:35 Pulse 84 05/20/25 10:35 Resp 20 05/20/25 10:35 BP 131/86 05/20/25 10:35 Pulse Ox 95 05/20/25 10:35 O2 Del Method Nasal Cannula 05/20/25 10:35 O2 Flow Rate 2 05/20/25 10:35 FiO2 35 05/20/25 07:28 Results Labs Labs: Short CBC 05/20/25 Range/Units 07:39 WBC 5.5 (4.0-11.0) 10^3/uL Hgb 7.2 L (12.0-16.0) g/dL Hct 22.4 L* (36.0-48.0) % Plt Count 204 (150-450) 10^3/uL BMP 05/20/25 07:39 Sodium 137 Potassium 4.9 Chloride 104 Carbon Dioxide 28.4 BUN 65.0 H Creatinine 2.52 H Glucose 167 H Calcium 8.1 L Liver Function 05/20/25 Range/Units 07:39 Total Bilirubin 0.6 (0.2-1.0) mg/dL AST 49 H (15-37) U/L ALT 37 (14-59) U/L Alkaline Phosphatase 148 H (46-116) U/L Albumin 2.1 L (3.4-5.0) g/dL Urine 05/20/25 Range/Units 08:45 Urine Color Lt. yellow (YELLOW) Urine Clarity Clear (CLEAR) Urine pH 5.5 (5.0-9.0) Ur Specific [place] 1.015 (1.005-1.025) Urine Protein Negative (NEG/TRACE) mg/dL Urine Glucose (UA) Negative (NEGATIVE) mg/dL ABG ABG results: 05/20/25 07:49 ABG pH 7.406 ABG pCO2 40.0 ABG pO2 90.0 ABG HCO3 25.1 ABG O2 Saturation 97.6 ABG Base Excess 0.4 Assessment and Plan Assessment and Plan (1) Hypoxemia: (2) Anemia, chronic disease: (3) AMS (altered mental status): (4) Fall: (5) Urinary tract infection: (6) Hypoglycemia: (7) Renal failure: Plan Hypoglycemia Likely caused by patient taking insulin and GLP-1 in the setting of stage IV kidney failure Patient was started on D10. Titrate infusion to keep her blood sugar between 100 and 200. Stage IV kidney failure. Likely chronic. Anemia. Patient reported that she had blood transfusion before. Patient is on Eliquis and Plavix Hold meds at this time Check stool Hemoccult Check H&H at 1420 200 Blood transfusion if her hemoglobin is dropping. Patient may need to have a GI investigation but patient is requesting comfort care approach at this time. Lower extremities edema Anus ultrasound rule out DVT Functional disability. Family stated that patient is unable to sit up or stand up on her own. Unable to change position in bed. Able to ambulate with a walker and two-person assist. Reported history of cancer. Family reported the patient had biopsy at [facility] a month ago. Still waiting on the biopsy report. CHF Elevated BNP and fluid overload clinically Start gentle diuresis. Requested echocardiogram. Trend troponin. Chronic medical conditions not listed above, incidental findings seen on labs and imaging. These would need to be addressed. Could be addressed when time and condition are appropriate. Could be addressed in the outpatient setting by PCP collaboration with other needed outpatient providers. Overall patient has poor prognosis given her kidney disease, respiratory hypoxemia, heart failure and underlying cancer. Urinary Catheter Management Urinary Catheter Management Urethral: Cath placed during this visit: yes Urethral indwelling: No Insertion date: 05/20/25 Insertion time: 08:43
--- NOTE | 2025-05-20 12:58 | P.CSD_ITS ---
Advance Care Planning Advance Care Planning Discussion Advance care planning discussion summary: Advance care planning and goals of care discussion Patient has fairly preserved cognition to understand conversation related to her health. Able to understand options, risk, benefit, alternatives. Able to ask and answer questions. Able to recite Conversation lasted for about 25 minutes. Conversation witnessed by her brother and granddaughter. Family reported that patient's is currently sick in the hospital in [place] Family reported that patient has children but estranged. They do not get involved in her personal and health related issues Patient has preserved cognition to make her own decision I discussed goals of care with the patient, witnessed by her brother and granddaughter Patient stated that she does not want any aggressive medical care. She hated being at [facility] recently getting so many CAT scan, x-ray, ultrasound and being poked repeatedly by nursing staff. I explained in layman's terms the difference between full code, CCA and CCP I explained in basic terms of the difference between aggressive medical care and a comfort care approach. Patient stated in simple terms that she does not want aggressive medical care. She does not want life support. She does not want any excessive diagnostic or therapeutic intervention such as excessive MRI, CAT scan, follow-up, referral in such. Patient was cleared that is intended for comfort and comfort care only. Her wishes are aligned with DNRCC I will honor her wishes and change CODE STATUS accordingly.
--- NOTE | 2025-05-20 13:14 | SWNOTE1 ---
BELEN spoke to med/surge executive secretary social welfare and Nael from [facility] called the floor and pt is skilled at [facility] and precert to return. BELEN reached out to Nael and Emili.
--- NOTE | 2025-05-20 13:37 | SWNOTE1 ---
SW received a message from Nael at [facility] and pt was there skilled, but she was cut yesterday but stayed an extra day due to her not feeling well. If patient wants to return she will be a precert. SW to speak with family.
[2025-05-20] MEDS: AMIODARONE HCL 200 MG TABLET PO ×2 (13:42→22:33)
[2025-05-20] MEDS: PANTOPRAZOLE SODIUM 40 MG TABLET.DR PO (13:42)
[2025-05-20] MEDS: PREGABALIN 75 MG CAPSULE PO (13:42)
[2025-05-20 13:45] LABS: SARS-CoV-2 Ag POSITIVE (NEGATIVE)
--- NOTE | 2025-05-20 14:51 | SWNOTE1 ---
Important Message from Medicare reviewed and discussed with patient and family in room. Pt and family verbalized understanding and patient wanted her grand-daughter to sign the form. Original placed in pt's room and copy placed in patient?s chart.
--- NOTE | 2025-05-20 14:52 | SWNOTE1 ---
BELEN met with pt, pt's brother, pt's grand daughter, and pt's sister in law. Pt voiced she was at the [facility] and did stay an extra day due to her being at [facility]. SW advised pt and family that SW assists with discharge planning. SW asked what pt's plan was for discharge from hospital. Pt had voiced she was going to go home. Pt's family did join conversation and her brother voiced that she will be along at the home and concerns for her safety. Pt's grand-daughter then stated we are going to do what grandma wants to do and we want her to be comfortable. Grand-daughter stated that pt is not going to get better. SW asked pt what her goal was? Pt voiced that she wants to be comfortable as well. SW asked pt and family if home was an option? Grand-daughter again expressed interest in hospice and making her comfortable. SW let pt and family know that if pt is interested in this (pt is alert and oriented) that we can reach out to hospice to have them do a consult here at the hospital and they will go over there services with pt and family. Pt voiced the doctor did come back in and go over code status with her and she does better understand that. SW also advised pt if she is interested in completing HCPOA, SW is able to do that with her as well. SW explained to her what HCPOA is and that it does not come in to play unless she is not able to make decisions for herself. She voiced understanding. SW to stop in tomorrow to see if she would like to complete HCPOA. SW advised pt and family that SW will reach out to Dr. Lockhart in regards to hospice to see if he wants to pursue this today or tomorrow.
[2025-05-20 15:11] LABS: Hematocrit 24.0 % (36.0-48.0); Hemoglobin 7.8 g/dL (12.0-16.0)
--- NOTE | 2025-05-20 15:38 | SWNOTE1 ---
Dr. Chantelle conner informational meeting with hospice. SW stopped back in room, grand daughter in room with pt. Grand-daughter provided a hospice list and SW card. Pt and grand daughter are in agreement to have hospice come in and speak with them. They are unsure of company at this time. They would like to discuss further with family. SW let grand-daughter know to call and leave message for SW and SW can work on it first thing in the morning.
[2025-05-20 15:46] LABS: Iron 12.0 ug/dL (50.0-170.0); Percent Iron Saturation 7.0 %; Total Iron Binding Capacity 172.0 ug/dL (250.0-450.0)
[2025-05-20 16:05] LABS: Ferritin 239.0 ng/mL (8.0-252.0); Folate 8.00 ng/mL (8.60-58.90)
[2025-05-20 22:11] LABS: Anion Gap 11.7; Blood Urea Nitrogen 67.0 mg/dL (7.0-18.0); Calcium 7.7 mg/dL (8.5-10.1); Carbon Dioxide 26.8 mmol/L (21.0-32.0); Chloride 101 mmol/L (98-107); Estimated GFR (African America 20 (>=60 mL/min/1.73m^2); Estimated GFR (Non-African Ame 16 (>=60 mL/min/1.73m^2); Potassium 5.5 mmol/L (3.5-5.1); Sodium 134 mmol/L (136-145)
[2025-05-20 22:28] LABS: Glucose 593 mg/dL (74-106)
[2025-05-20] MEDS: FOLIC ACID 50 MG/10 ML VIAL IVP (22:32)
[2025-05-20] MEDS: INSULIN ASPART 300 UNIT/3 ML PEN SUBQ ×2 (22:32→22:50)
[2025-05-20] MEDS: METOPROLOL TARTRATE 25 MG TABLET 12.5 MG PO (22:33)
[2025-05-20] MEDS: TAMSULOSIN HCL 0.4 MG CAPSULE PO (22:33)
[2025-05-21] VITALS (24 sets, daily range): BP systolic 95–144; BP diastolic 53–72; PULSE 63–75; TEMP 36.4–37; O2SAT 92–97
[2025-05-21] MEDS: INSULIN ASPART 300 UNIT/3 ML PEN 14 UNIT SUBQ (01:04)
[2025-05-21 04:08] LABS: Vitamin B12 1316 pg/mL (232-1245)
[2025-05-21] MEDS: PANTOPRAZOLE SODIUM 40 MG TABLET.DR PO (05:41)
[2025-05-21] MEDS: FUROSEMIDE 20 MG/2 ML VIAL IVP ×3 (05:41→21:41)
[2025-05-21] MEDS: DEXTROSE/DEXTRIN/MALTOSE 31 GM GEL.INSTANT GLUCOSE PO (05:41)
[2025-05-21 06:06] LABS: Hemoglobin 7.0 g/dL (12.0-16.0); Mean Corpuscular HGB Conc 32.7 g/dL (29.9-35.2); Mean Corpuscular Hemoglobin 29.0 pg (26.7-34.0); Mean Corpuscular Volume 88.8 fL (81.0-99.0); Platelet Count 221 10^3/uL (150-450); White Blood Count 5.3 10^3/uL (4.0-11.0)
[2025-05-21 06:28] LABS: Alanine Aminotransferase 50 U/L (14-59); Albumin Globulin Ratio 0.7; Albumin Level 2.1 g/dL (3.4-5.0); Alkaline Phosphatase 149 U/L (46-116); Anion Gap 12.7; Aspartate Amino Transferase 82 U/L (15-37); Blood Urea Nitrogen 69.0 mg/dL (7.0-18.0); Calcium 8.1 mg/dL (8.5-10.1); Carbon Dioxide 28.9 mmol/L (21.0-32.0); Chloride 102 mmol/L (98-107); Estimated GFR (African America 23 (>=60 mL/min/1.73m^2); Estimated GFR (Non-African Ame 19 (>=60 mL/min/1.73m^2); Globulin 3.0 g/dL; Glucose 124 mg/dL (74-106); Potassium 4.6 mmol/L (3.5-5.1); Sodium 139 mmol/L (136-145); Total Protein 5.1 g/dL (6.4-8.2)
[2025-05-21 06:29] LABS: Red Blood Count 2.41 10^6/uL (4.20-5.40)
[2025-05-21 06:30] LABS: Hematocrit 21.4 % (36.0-48.0)
--- NOTE | 2025-05-21 07:00 | CA_ITS ---
Patient Name: MACY ACHARYA MR#: [id number] : 1945 Exam Date: 05/21/2025 Ordering Doctor: JIN DUENAS ECHOCARDIOGRAM REPORT PROCEDURE: CA ECHO DOPPLER COMPLETE INDICATIONS: CHF COMPARISON: None. DESCRIPTION: COMPLETE ECHOCARDIOGRAM Real-time transthoracic echocardiography with 2D, M-mode, spectral and color flow Doppler performed. QUALITY: Technical quality was good. LEFT VENTRICLE: Normal chamber size. Normal left ventricular wall thickness. LV EF: Global left ventricular systolic function is normal; visually estimated ejection fraction is 60 to 65%. Calculated left ventricular ejection fraction is 71%. No significant wall motion abnormalities. DIASTOLIC: Diastolic function is indeterminate. ATRIAL SEPTUM: Inadequately seen. LEFT ATRIUM: Severe dilatation. RIGHT ATRIUM: Severe dilatation. RIGHT VENTRICLE: Moderate dilatation. Normal right ventricular systolic function. TRICUSPID VALVE: Normal mobility and thickness. Moderate to severe regurgitation. Mild pulmonary hypertension. RVSP 40mmHg. MITRAL VALVE: Mildly thickened with normal mobility. No evidence of mitral valve stenosis. Moderate mitral annular calcification. Mild mitral regurgitation. AORTIC VALVE: Normal trileaflet appearance. Mildly calcified aortic valve. Normal leaflet mobility. No evidence of aortic valve stenosis. Mild aortic regurgitation. AORTIC ROOT: Normal diameter and appearance. PULMONIC VALVE: Normal thickness and mobility. No stenosis. Trivial regurgitation. PERICARDIUM: No evidence of pericardial effusion. IVC: Collapses with inspiration. Normal size. CONCLUSION: 1. Global left ventricular systolic function is normal; visually estimated ejection fraction is 60 to 65% 2. The right ventricle is moderately dilated with normal systolic function 3. Severe biatrial dilatation 4. Diastolic function is indeterminate 5. Moderate to severe tricuspid regurgitation 6. Mildly elevated right ventricular systolic pressure; RVSP 40 mmHg 7. Mild mitral regurgitation 8. Mild aortic valve regurgitation Adult Echocardiography Procedure Report Left Ventricle LVEDD (3.7 - 5.6 cm): 5.05 cm LVESD (2.2 - 4.0 cm): 3.40 cm LVIVS thickness (0.6 - 1.2 cm): 0.90 cm LVPW thickness (0.5 - 1.0 cm): 1.04 cm e': 0.11 m/s E - e': 12.00 LVOT Max Gradient: 3.45 mm[Hg] LVOT Area (cm2): 0.93 m/s Peak Velocity (LVOT): 0.93 m/s Mean Velocity (LVOT): 0.61 m/s LVOT Diameter 2.28 cm Left Ventricular Ejection Fraction: 70.55 % Left Atrium LA Volume Index (2D A2C): 95.80 ml/m2 Left Atrium Systolic Dimension: 4.68 cm Mitral Valve MV E to A Ratio: 1.62 Mitral Valve A-Wave Peak Velocity: 0.81 m/s Mitral Valve E-Wave Peak Velocity: 1.31 m/s Right Ventricle RV Internal Diastolic Dimension: 4.81 cm Aorta AO Root Diam: 3.35 cm Ascending Ao Diam: 3.32 cm Aortic Valve AoV Area (Peak Isaias): 2.52 cm2, 2.52 cm2 AoV Area (VTI): 2.27 cm2, 2.32 cm2 Peak Velocity(Antegrade Flow): 1.50 m/s, 1.50 m/s Peak Gradient(Antegrade Flow): 8.99 mm[Hg], 8.99 mm[Hg] Mean Velocity(Antegrade Flow): 1.11 m/s, 1.10 m/s Mean Gradient(Antegrade Flow): 5.48 mm[Hg], 5.44 mm[Hg] Velocity Time Integral: 36.23 cm, 37.73 cm Tricuspid Valve Peak Velocity (Regurgitant Flow): 2.86 m/s, 2.87 m/s, 3.05 m/s Pulmonic Valve Mean Gradient: 3.31 mm[Hg], 2.99 mm[Hg] Mean Velocity: 0.87 m/s, 0.81 m/s Peak Velocity: 1.13 m/s Peak Gradient: 4.96 mm[Hg], 5.31 mm[Hg] Right Atrium Right Atrium Systolic Pressure: 111.31 ml, 111.31 ml Dictated by: Osiris Ibrahim M.D. on 05/21/2025 at 13:13 Approved by: Osiris Ibrahim M.D. on 05/21/2025 at 13:17
--- NOTE | 2025-05-21 08:15 | SWNOTE1 ---
SW had voicemail from grand daughter, Jocelyn, and family and pt decided they would like to speak with [facility]. SW returned phone call to Jocelyn and left message that SW is sending referral and will have hospice contact her directly to coordinate time. Referral sent to [facility]. Referral included face sheet, ED note, H&P, provider notes, case management report,nursing notes, diagnostic imaging, DNR order, and Hospice order.
[2025-05-21] MEDS: PREGABALIN 75 MG CAPSULE PO ×2 (08:27→14:10)
[2025-05-21] MEDS: ALBUMIN HUMAN 25 GM/100 ML PREMIX IV (08:27)
[2025-05-21] MEDS: IRON SUCROSE COMPLEX 200 MG in 0.9 % SODIUM CHLORIDE 100 ML 220 MG IV (08:27)
[2025-05-21] MEDS: ATORVASTATIN CALCIUM 40 MG TABLET 80 MG PO (08:27)
[2025-05-21] MEDS: ALLOPURINOL 300 MG TABLET PO (08:27)
[2025-05-21] MEDS: FOLIC ACID 50 MG/10 ML VIAL IVP (08:27)
[2025-05-21] MEDS: DEXAMETHASONE SOD PHOS 4 MG/ML VIAL 6 MG IV (08:28)
[2025-05-21] MEDS: AMIODARONE HCL 200 MG TABLET PO ×2 (08:28→21:41)
[2025-05-21] MEDS: 0.9 % SODIUM CHLORIDE 250 ML 10 ML IV (08:29)
--- NOTE | 2025-05-21 08:36 | SWNOTE1 ---
BELEN called [facility] office and spoke to Yoli. BELEN advised that BELEN sent referral to [place] office and message Stephanie as well. Yoli stated Stephanie did reach out and they will review referral and reach out to grand daughter to coordinate time.
--- NOTE | 2025-05-21 09:30 | CM.NOTE ---
Rounds made with Dr. Lockhart, discussed plan of care with pt. SS has spoke with pt's family and will reach out to Hospice for consult this AM.
--- NOTE | 2025-05-21 09:52 | SWNOTE1 ---
BELEN received a call from Yoli at [facility] and Stephanie will be coming over around 11:30. Yoli spoke to pt's grand daughter, Jocelyn and informed her of time. BELEN updated nurse and patient.
--- NOTE | 2025-05-21 11:54 | SWNOTE1 ---
Stephanie from [facility] is here. SW did get a message from nursing and family is unsure of what they would like to pursue and had questions about Medicaid as well. BELEN went in with Stephanie and informed pt and family that SW would be back.
[2025-05-21] MEDS: INSULIN ASPART 300 UNIT/3 ML PEN SUBQ ×3 (11:56→21:46)
--- NOTE | 2025-05-21 13:02 | SWNOTE1 ---
BELEN stopped back in and spoke with family, pt, and Stephanie from [facility]. SW did speak with pt and family about Medicaid and chcf care with hospice. Pt voiced she filled out Medicaid raúl about a month ago at [facility], but they do not know if she qualified. SW advised if she did and has a pending Medicaid number, then it would help to get her in to chcf care at a facility with hospice. If she does not have a pending Medicaid number, then buttermaker helper care at nursing facility would be out of pocket, which would be $8,000-$10,000. Pt did stated her insurance had her over at [facility] for 30 days. SW did explain that was skilled. SW explained to pt and family that pt can't be skilled and chcf with hospice. SW also let pt and family know that her insurance just cut her 2 days ago. SW did ask pt what she would like to do. Pt has expressed that she would like to go home. SW did let pt and family know that if she went home, she would need 24/7 care. As they are aware hospice would come in some, but would not be there 24/7. When I mention this, nobody in family mentions if they are able to assist with this. BELEN advised pt and family that this is something they will all need to discuss together. SW let family and pt know that SW will call [employer] family services to see if she has a pending Medicaid number. SW to stop back. BELEN spoke to Stephanie from [facility] and she voiced family is going to discuss everything. Dr. Lockhart spoke with us as well and family will discuss the plan and then will follow up. No plan of discharge today.
--- NOTE | 2025-05-21 13:55 | PM.PN ---
Progress Note: Subjective Subjective Interval history: Persistent cough and shortness of breath. More awake and coherent. No chest pain. No abdominal pain Exam Narrative Exam Narrative: Morbidly obese. Pale skin and buccal mucosa. Mild tachypnea. Patient is on oxygen. Sitting up in chair. No JVD noted. Chest exam revealed crackles. Heart is regular. Abdomen is soft. Increased abdominal girth therefore her abdominal exam is inconclusive. No tenderness. Lower extremities +2 pitting edema. Function is very poor. Patient is unable to change position in bed. Able to move her legs sideways. Able to lift upper arms against gravity. Cognition is fairly preserved. Patient is able to understand conversation related to her health. Able to answer questions. Able to provide information. Able to engage. Constitutional Vital Signs, click to edit/add: Last Vital Signs Temp 98.2 F 05/21/25 13:25 Pulse 75 05/21/25 13:25 Resp 18 05/21/25 13:25 BP 142/63 H 05/21/25 13:25 Pulse Ox 93 L 05/21/25 13:25 O2 Del Method Room Air 05/21/25 13:25 O2 Flow Rate 0.5 05/21/25 09:37 FiO2 35 05/20/25 07:28 Progress Note: Objective Labs Labs: Short CBC 05/20/25 05/21/25 Range/Units 15:00 05:55 WBC 5.3 (4.0-11.0) 10^3/uL Hgb 7.8 L 7.0 L (12.0-16.0) g/dL Hct 24.0 L 21.4 L* (36.0-48.0) % Plt Count 221 (150-450) 10^3/uL BMP 05/20/25 05/21/25 21:41 05:55 Sodium 134 L 139 Potassium 5.5 H 4.6 Chloride 101 102 Carbon Dioxide 26.8 28.9 BUN 67.0 H 69.0 H Creatinine 2.78 H 2.47 H Glucose 593 H* 124 H Calcium 7.7 L 8.1 L Liver Function 05/21/25 Range/Units 05:55 Total Bilirubin 0.4 (0.2-1.0) mg/dL AST 82 H (15-37) U/L ALT 50 (14-59) U/L Alkaline Phosphatase 149 H (46-116) U/L Albumin 2.1 L (3.4-5.0) g/dL Progress Note: A&P Assessment and Plan (1) Hypoxemia: (2) Anemia, chronic disease: (3) AMS (altered mental status): (4) Fall: (5) Urinary tract infection: (6) Hypoglycemia: (7) Renal failure: (8) COVID-19: Plan Hypoglycemia Likely caused by patient taking insulin and GLP-1 in the setting of stage IV kidney failure Patient was started on D10. D10 had been discontinued overnight Avoid lower long-acting insulin. Continue sliding scale Stage IV kidney failure. I reviewed her record from [facility]. Chronic care. Acute COVID-19 infection Patient is not a candidate for the remdesivir or baricitinib I will start patient on oxygen supplementation and Decadron daily Anemia. Patient reported that she had blood transfusion before. Patient is on Eliquis and Plavix Folate and iron deficiency. Anemia of chronic disease secondary to CKD. Hold meds at this time Check stool Hemoccult Hemoglobin dropped proceed with blood transfusion Folic acid is low I would start patient on folic acid supplementation. I would also start patient on iron infusion as well as erythropoietin injection. The goal is to keep hemoglobin above 9. Patient may need to have a GI investigation but patient is requesting comfort care approach at this time. Lower extremities edema Anus ultrasound rule out DVT. Ultrasound is negative for DVT. Functional disability. Family stated that patient is unable to sit up or stand up on her own. Unable to change position in bed. Able to ambulate with a walker and two-person assist. Reported history of cancer. Family reported the patient had biopsy at [facility] a month ago. Still waiting on the biopsy report. I was able to get the report from EGD and biopsy. EGD showed gastric mass. 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 Patient informed me and her family (brother, 3 granddaughters ) that she does not want to have any chemotherapy or surgery for the cancer. She wants to allow nature to take its course. CHF Elevated BNP and fluid overload clinically Start gentle diuresis. Requested echocardiogram. Trend troponin. Hypoxic respiratory failure secondary to CHF, fluid overload, renal failure and COVID-19 infection. Continue treatment as listed above. Chronic medical conditions not listed above, incidental findings seen on labs and imaging. These would need to be addressed. Could be addressed when time and condition are appropriate. Could be addressed in the outpatient setting by PCP collaboration with other needed outpatient providers. Overall patient has poor prognosis given her kidney disease, respiratory hypoxemia, heart failure and underlying cancer. Urinary Catheter Management Urinary Catheter Management Urethral: Cath placed during this visit: yes Urethral indwelling: No Insertion date: 05/20/25 Insertion time: 08:43
--- NOTE | 2025-05-21 13:59 | W.ACP ---
Advance Care Planning Advance Care Planning Discussion Advance care planning discussion summary: Additional advance care planning and goals of care discussion took place today between myself, patient, her brother and 3 grand children. Spent about 25 minutes in the discussion. I informed the family about the gastric pathology report came back positive for adenocarcinoma. Patient is coherent. Patient is sitting up in a chair engaging in conversation. She is able to understand options, alternatives, risk and benefit. She is able to ask and answer questions. She is able to recite. Repeatedly, patient stated that she does not want any surgery or chemotherapy. Repeatedly, patient stated that she does not want aggressive medical care. She wants care that is intended for comfort and comfort care only. Furthermore, patient is not willing to go back to the nursing facility. She wants to go home with hospice care. The problem is at this time, that the patient does not have much support at home. Family is trying to figure out what is the best option for her in terms of disposition respecting her wishes to focus on comfort and seek hospice enrollment.
[2025-05-21] MEDS: FOLIC ACID 1 MG TABLET PO (14:10)
[2025-05-21] MEDS: EPOETIN ALFA 4,000 UNIT/ML VIAL 4000 UNIT SUBQ (14:10)
--- NOTE | 2025-05-21 14:35 | CM.NOTE ---
Pathology report printed and put on pt's chart from stomach biopsy.
--- NOTE | 2025-05-21 16:48 | SWNOTE1 ---
BELEN called jobs and family services of [facility]. SW was prompted to various places in regards to Medicaid, but was not able to speak to someone directly. In the prompts was an 800 number. BELEN attempted, but it required someone to create an account to check on status. BELEN called grand daughter, Jocelyn, and updated her. She was familiar with number and she will also check pt's mail to see if anything came in about Medicaid. Jocelyn voiced that several of family member have decided they respect pt's wishes and want her to go home with [facility]. BELEN did ask if they would have someone there 22/04. SHe voiced she does think they can between her sister and pt's sister in law. BELEN did request that family be present tomorrow when doctor is here to discuss further with him. BELEN will leave number for [facility] that nursing can reach if pt does discharge home with hospice.
[2025-05-21 18:22] LABS: Hematocrit 27.7 % (36.0-48.0); Hemoglobin 9.1 g/dL (12.0-16.0)
[2025-05-21] MEDS: METOPROLOL TARTRATE 25 MG TABLET 12.5 MG PO (21:41)
[2025-05-21] MEDS: TAMSULOSIN HCL 0.4 MG CAPSULE PO (21:41)
[2025-05-22] VITALS (19 sets, daily range): BP systolic 142–179; BP diastolic 57–72; PULSE 54–75; TEMP 36.6–36.9; O2SAT 91–97
[2025-05-22] MEDS: FUROSEMIDE 20 MG/2 ML VIAL IVP ×3 (05:49→21:10)
[2025-05-22] MEDS: PANTOPRAZOLE SODIUM 40 MG TABLET.DR PO (05:50)
[2025-05-22 06:35] LABS: Hematocrit 27.7 % (36.0-48.0); Hemoglobin 9.3 g/dL (12.0-16.0); Mean Corpuscular HGB Conc 33.6 g/dL (29.9-35.2); Mean Corpuscular Hemoglobin 29.1 pg (26.7-34.0); Mean Corpuscular Volume 86.6 fL (81.0-99.0); Platelet Count 217 10^3/uL (150-450); Red Blood Count 3.20 10^6/uL (4.20-5.40); White Blood Count 6.1 10^3/uL (4.0-11.0)
[2025-05-22 06:51] LABS: Anion Gap 13.8; Blood Urea Nitrogen 63.0 mg/dL (7.0-18.0); Calcium 8.1 mg/dL (8.5-10.1); Carbon Dioxide 29.5 mmol/L (21.0-32.0); Chloride 101 mmol/L (98-107); Estimated GFR (African America 25 (>=60 mL/min/1.73m^2); Estimated GFR (Non-African Ame 21 (>=60 mL/min/1.73m^2); Glucose 163 mg/dL (74-106); Potassium 4.3 mmol/L (3.5-5.1); Sodium 140 mmol/L (136-145)
[2025-05-22] MEDS: IRON SUCROSE COMPLEX 200 MG in 0.9 % SODIUM CHLORIDE 100 ML 100 MG IV (08:35)
[2025-05-22] MEDS: AMIODARONE HCL 200 MG TABLET PO ×2 (08:36→21:10)
[2025-05-22] MEDS: METOPROLOL TARTRATE 25 MG TABLET 12.5 MG PO ×2 (08:36→21:10)
[2025-05-22] MEDS: ALLOPURINOL 300 MG TABLET PO (08:36)
[2025-05-22] MEDS: ISOSORBIDE MONONITRATE 30 MG TAB.ER.24H PO (08:36)
[2025-05-22] MEDS: FOLIC ACID 1 MG TABLET PO ×2 (08:36→21:11)
[2025-05-22] MEDS: DEXAMETHASONE SOD PHOS 4 MG/ML VIAL 6 MG IV (08:36)
[2025-05-22] MEDS: ATORVASTATIN CALCIUM 40 MG TABLET 80 MG PO (08:36)
[2025-05-22] MEDS: PREGABALIN 75 MG CAPSULE PO ×2 (08:37→13:46)
[2025-05-22] MEDS: INSULIN ASPART 300 UNIT/3 ML PEN SUBQ ×4 (08:38→21:17)
--- NOTE | 2025-05-22 09:24 | PT.DAILY ---
Physical Therapy Daily Note PT Daily Note/Assess Start: 05/20/25 16:22 Freq: Status: Active Protocol: Document 05/22/25 09:22 ANTONIO (Rec: 05/22/25 09:24 [email or web address] [id number]) Physical Therapy Daily Note/Assessment Time In/Time Out Time In 09:00 Time Out 09:15 Pain In Pain N/A Pain Out Pain N/A Subjective Subjective Pt supine upon arrival. Agrees to PT. Therapeutic Exercise Time Therapeutic Exercise 4 Minutes (minutes) Therapeutic Exercise 0 Units Therapeutic Exercise Treatment Therapeutic Exercise Bilat LE strengthening ex complete 20x ea while sitting Treatment in BS chair. Occ coughing spell delays activity. Therapeutic Activity Time Therapeutic Activity 6 Minutes (minutes) Therapeutic Activity 1 Units Therapeutic Activity Treatment Bed Mobility Ability Minimum Assist Chair Transfer Contact Guard Assist Ability Therapeutic Activity Supine>sit with Jose to advance trunk and upper body - Comments increased time needed. Pt sit>stand from EOB to RW CGA. Amb around bed 30' with RW, CGA. Remains in BS chair for seated ex then left under nursing care. Total Physical Therapy Time Total Therapy 10 Minutes Total Physical 1 Therapy Units Summary Daily Note Summary Improved transfer and gait ability.
--- NOTE | 2025-05-22 09:47 | PM.PN ---
Progress Note: Subjective Subjective Interval history: Persistent cough and shortness of breath. More awake and coherent. No chest pain. No abdominal pain Exam Narrative Exam Narrative: Morbidly obese. Pale skin and buccal mucosa. Mild tachypnea. Patient is on oxygen. Sitting up in chair. No JVD noted. Chest exam revealed crackles. Heart is regular. Abdomen is soft. Increased abdominal girth therefore her abdominal exam is inconclusive. No tenderness. Lower extremities +2 pitting edema. Function is very poor. Patient is unable to change position in bed. Able to move her legs sideways. Able to lift upper arms against gravity. Cognition is fairly preserved. Patient is able to understand conversation related to her health. Able to answer questions. Able to provide information. Able to engage. Constitutional Vital Signs, click to edit/add: Last Vital Signs Temp 98.4 F 05/22/25 08:00 Pulse 62 05/22/25 08:00 Resp 20 05/22/25 08:00 BP 151/72 H 05/22/25 08:00 Pulse Ox 94 L 05/22/25 08:00 O2 Del Method Room Air 05/22/25 08:00 O2 Flow Rate 0.5 05/21/25 09:37 FiO2 35 05/20/25 07:28 Progress Note: Objective Labs Labs: Short CBC 05/21/25 05/22/25 Range/Units 17:55 06:15 WBC 6.1 (4.0-11.0) 10^3/uL Hgb 9.1 L 9.3 L (12.0-16.0) g/dL Hct 27.7 L 27.7 L (36.0-48.0) % Plt Count 217 (150-450) 10^3/uL BMP 05/22/25 06:15 Sodium 140 Potassium 4.3 Chloride 101 Carbon Dioxide 29.5 BUN 63.0 H Creatinine 2.26 H Glucose 163 H Calcium 8.1 L Progress Note: A&P Assessment and Plan (1) Hypoxemia: (2) Anemia, chronic disease: (3) AMS (altered mental status): (4) Fall: (5) Urinary tract infection: (6) Hypoglycemia: (7) Renal failure: (8) COVID-19: Plan Hypoglycemia Likely caused by patient taking insulin and GLP-1 in the setting of stage IV kidney failure Patient was started on D10. D10 had been discontinued overnight Avoid long-acting insulin. Continue sliding scale Blood sugar has been stable over the last 48 hours Stage IV kidney failure. I reviewed her record from [place]. Chronic care. I resumed her diuretics to keep her in a euvolemic state. Acute COVID-19 infection Patient is not a candidate for the remdesivir or baricitinib I will start patient on oxygen supplementation and Decadron daily Anemia. Multifactorial patient reported that she had blood transfusion before. Patient is on Eliquis and Plavix Folate and iron deficiency. Anemia of chronic disease secondary to CKD. Hold meds at this time Check stool Hemoccult Hemoglobin dropped, status post 2 units of RBC transfusion Folic acid is low I would start patient on folic acid supplementation. I would also start patient on iron infusion as well as erythropoietin injection. The goal is to keep hemoglobin above 9. Patient may need to have a GI investigation but patient is requesting comfort care approach at this time. Resume Eliquis at 10 adjusted dose for kidney failure if her hemoglobin continues to be stable Lower extremities edema Anus ultrasound rule out DVT. Ultrasound is negative for DVT. Functional disability. Family stated that patient is unable to sit up or stand up on her own. Unable to change position in bed. Able to ambulate with a walker and two-person assist. Reported history of cancer. Family reported the patient had biopsy at [place] a month ago. Still waiting on the biopsy report. I was able to get the report from EGD and biopsy. EGD showed gastric mass. 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 Patient informed me and her family (brother, 3 granddaughters ) that she does not want to have any chemotherapy or surgery for the cancer. She wants to allow nature to take its course. CHF Elevated BNP and fluid overload clinically Start gentle diuresis. Requested echocardiogram. Echocardiogram showed normal ejection fraction but positive for tricuspid regurg and mitral regurg Resume diuretics to keep her in euvolemic state Hypoxic respiratory failure secondary to CHF, fluid overload, renal failure and COVID-19 infection. Continue treatment as listed above. Chronic medical conditions not listed above, incidental findings seen on labs and imaging. These would need to be addressed. Could be addressed when time and condition are appropriate. Could be addressed in the outpatient setting by PCP collaboration with other needed outpatient providers. Overall patient has poor prognosis given her kidney disease, respiratory hypoxemia, heart failure and underlying cancer. Patient and family met with the hospice team. Complicated issues related to her status and insurance coverage as well as home health support and needs. Patient wants to go home with hospice however she does not have much help and supervision at home other than her granddaughter who is mentally challenged I was told that patient had finished her skilled days and her [employer] insurance cut her off Family may not have financial resources to keep her at the nursing facility under private pay. Patient may not qualify to be admitted to the inpatient hospice unit for GIP type of care We will continue to work with the social work to discharge patient to a safe place. Continue comfort care approach as requested by patient and agreed on by family. (Brother, 3 granddaughters ) I was notified that patient has 2 sons who do not get involved in her care. Thus far patient is coherent, competent, has preserved cognition to understand conversation related to her health and able to make her own decision. Urinary Catheter Management Urinary Catheter Management Urethral: Cath placed during this visit: yes Urethral indwelling: No Insertion date: 05/20/25 Insertion time: 08:43
[2025-05-22] MEDS: TAMSULOSIN HCL 0.4 MG CAPSULE PO (21:10)
[2025-05-22] MEDS: APIXABAN 5 MG TABLET 2.5 MG PO (21:10)
[2025-05-23] VITALS (18 sets, daily range): BP systolic 119–168; BP diastolic 55–83; PULSE 55–78; TEMP 36.6–36.8; O2SAT 93–95
[2025-05-23] MEDS: FUROSEMIDE 20 MG/2 ML VIAL IVP ×3 (05:39→21:44)
[2025-05-23] MEDS: PANTOPRAZOLE SODIUM 40 MG TABLET.DR PO (05:39)
[2025-05-23 06:44] LABS: Hematocrit 27.8 % (36.0-48.0); Hemoglobin 9.4 g/dL (12.0-16.0); Mean Corpuscular HGB Conc 33.8 g/dL (29.9-35.2); Mean Corpuscular Hemoglobin 29.4 pg (26.7-34.0); Mean Corpuscular Volume 86.9 fL (81.0-99.0); Platelet Count 209 10^3/uL (150-450); Red Blood Count 3.20 10^6/uL (4.20-5.40); White Blood Count 5.4 10^3/uL (4.0-11.0)
[2025-05-23 06:54] LABS: Anion Gap 11.5; Blood Urea Nitrogen 58.0 mg/dL (7.0-18.0); Calcium 8.3 mg/dL (8.5-10.1); Carbon Dioxide 30.9 mmol/L (21.0-32.0); Chloride 101 mmol/L (98-107); Estimated GFR (African America 26 (>=60 mL/min/1.73m^2); Estimated GFR (Non-African Ame 21 (>=60 mL/min/1.73m^2); Glucose 155 mg/dL (74-106); Potassium 4.4 mmol/L (3.5-5.1); Sodium 139 mmol/L (136-145)
[2025-05-23] MEDS: ISOSORBIDE MONONITRATE 30 MG TAB.ER.24H PO (08:52)
[2025-05-23] MEDS: APIXABAN 5 MG TABLET 2.5 MG PO ×2 (08:52→21:44)
[2025-05-23] MEDS: INSULIN ASPART 300 UNIT/3 ML PEN SUBQ ×4 (08:52→21:47)
[2025-05-23] MEDS: FOLIC ACID 1 MG TABLET PO ×2 (08:52→21:44)
[2025-05-23] MEDS: ATORVASTATIN CALCIUM 40 MG TABLET 80 MG PO (08:53)
[2025-05-23] MEDS: AMIODARONE HCL 200 MG TABLET PO ×2 (08:53→21:44)
[2025-05-23] MEDS: DEXAMETHASONE SOD PHOS 4 MG/ML VIAL 6 MG IV (08:53)
[2025-05-23] MEDS: IRON SUCROSE COMPLEX 200 MG in 0.9 % SODIUM CHLORIDE 100 ML 100 MG IV (08:53)
[2025-05-23] MEDS: METOPROLOL TARTRATE 25 MG TABLET 12.5 MG PO ×2 (08:53→21:44)
[2025-05-23] MEDS: ALLOPURINOL 300 MG TABLET PO (08:53)
[2025-05-23] MEDS: PREGABALIN 75 MG CAPSULE PO ×2 (09:08→13:28)
--- NOTE | 2025-05-23 11:12 | P.PN_ITS ---
Progress Note: Subjective Subjective Interval history: Persistent cough and shortness of breath. More awake and coherent. No chest pain. No abdominal pain Exam Narrative Exam Narrative: Morbidly obese. Pale skin and buccal mucosa. Mild tachypnea. Patient is on oxygen. Sitting up in chair. No JVD noted. Chest exam revealed crackles. Heart is regular. Abdomen is soft. Increased abdominal girth therefore her abdominal exam is inconclusive. No tenderness. Lower extremities +2 pitting edema. Function is very poor. Patient is unable to change position in bed. Able to move her legs sideways. Able to lift upper arms against gravity. Cognition is fairly preserved. Patient is able to understand conversation related to her health. Able to answer questions. Able to provide information. Able to engage. Constitutional Vital Signs, click to edit/add: Last Vital Signs Temp 98.3 F 05/23/25 07:52 Pulse 55 L 05/23/25 09:56 Resp 20 05/23/25 07:52 BP 139/55 05/23/25 07:52 Pulse Ox 93 L 05/23/25 10:11 O2 Del Method Room Air 05/23/25 10:11 O2 Flow Rate 0.5 05/21/25 09:37 FiO2 35 05/20/25 07:28 Progress Note: Objective Labs Labs: Short CBC 05/23/25 Range/Units 06:01 WBC 5.4 (4.0-11.0) 10^3/uL Hgb 9.4 L (12.0-16.0) g/dL Hct 27.8 L (36.0-48.0) % Plt Count 209 (150-450) 10^3/uL BMP 05/23/25 06:01 Sodium 139 Potassium 4.4 Chloride 101 Carbon Dioxide 30.9 BUN 58.0 H Creatinine 2.24 H Glucose 155 H Calcium 8.3 L Progress Note: A&P Assessment and Plan (1) Hypoxemia: (2) Anemia, chronic disease: (3) AMS (altered mental status): (4) Fall: (5) Urinary tract infection: (6) Hypoglycemia: (7) Renal failure: (8) COVID-19: Plan Hypoglycemia Likely caused by patient taking insulin and GLP-1 in the setting of stage IV ki dney failure Patient was started on D10. D10 had been discontinued overnight Avoid long-acting insulin. Continue sliding scale Blood sugar has been stable over the last 72 hours Stage IV kidney failure. I reviewed her record from [place]. Chronic care. I resumed her diuretics to keep her in a euvolemic state. Acute COVID-19 infection Patient is not a candidate for the remdesivir or baricitinib I will start patient on oxygen supplementation and Decadron daily Anemia. Multifactorial patient reported that she had blood transfusion before. Patient is on Eliquis and Plavix Folate and iron deficiency. Anemia of chronic disease secondary to CKD. Hold meds at this time Check stool Hemoccult Hemoglobin dropped, status post 2 units of RBC transfusion Folic acid is low I would start patient on folic acid supplementation. I would also start patient on iron infusion as well as erythropoietin injection. The goal is to keep hemoglobin above 9. Patient may need to have a GI investigation but patient is requesting comfort care approach at this time. Resume Eliquis at 2.5 adjusted dose for kidney failure if her hemoglobin continues to be stable Lower extremities edema Anus ultrasound rule out DVT. Ultrasound is negative for DVT. Functional disability. Family stated that patient is unable to sit up or stand up on her own. Unable to change position in bed. Able to ambulate with a walker and two-person assist. Reported history of cancer. Family reported the patient had biopsy at [place] a month ago. Still waiting on the biopsy report. I was able to get the report from EGD and biopsy. EGD showed gastric mass. 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 Patient informed me and her family (brother, 3 granddaughters ) that she does not want to have any chemotherapy or surgery for the cancer. She wants to allow nature to take its course. CHF Elevated BNP and fluid overload clinically Start gentle diuresis. Requested echocardiogram. Echocardiogram showed normal ejection fraction but positive for tricuspid regurg and mitral regurg Resume diuretics to keep her in euvolemic state Hypoxic respiratory failure secondary to CHF, fluid overload, renal failure and COVID-19 infection. Continue treatment as listed above. Chronic medical conditions not listed above, incidental findings seen on labs and imaging. These would need to be addressed. Could be addressed when time and condition are appropriate. Could be addressed in the outpatient setting by PCP collaboration with other needed outpatient providers. Overall patient has poor prognosis given her kidney disease, respiratory hypoxemia, heart failure and underlying cancer. Patient and family met with the hospice team last Saturday. Complicated issues related to her status and insurance coverage as well as home health support and needs. Patient wants to go home with hospice however she does not have much help and supervision at home other than her granddaughter who is mentally challenged I was told that patient had finished her skilled days and her [employer] insurance cut her off Family may not have financial resources to keep her at the nursing facility under private pay. Patient may not qualify to be admitted to the inpatient hospice unit for GIP type of care We will continue to work with the social work to discharge patient to a safe place. Continue comfort care approach as requested by patient and agreed on by family. (Brother, 3 granddaughters ) I was notified that patient has 2 sons who do not get involved in her care. Thus far patient is coherent, competent, has preserved cognition to understand conversation related to her health and able to make her own decision. Urinary Catheter Management Urinary Catheter Management Urethral: Cath placed during this visit: yes Urethral indwelling: No Insertion date: 05/20/25 Insertion time: 08:43
[2025-05-23] MEDS: TAMSULOSIN HCL 0.4 MG CAPSULE PO (21:44)
[2025-05-24] VITALS (11 sets, daily range): BP systolic 129–189; BP diastolic 65–78; PULSE 51–68; TEMP 36.4–36.6; O2SAT 90–94
[2025-05-24] MEDS: PANTOPRAZOLE SODIUM 40 MG TABLET.DR PO (05:58)
[2025-05-24] MEDS: FUROSEMIDE 20 MG/2 ML VIAL IVP (05:58)
--- NOTE | 2025-05-24 08:05 | CM.NOTE ---
Rounds made with Dr. Lockhart, discussed plan of care with pt. BELEN balderas to discuss plan of care with family for discharge.
[2025-05-24] MEDS: INSULIN ASPART 300 UNIT/3 ML PEN SUBQ (08:34)
--- NOTE | 2025-05-24 09:23 | PM.PN ---
Progress Note: Subjective Subjective Interval history: Persistent cough and shortness of breath. More awake and coherent. No chest pain. No abdominal pain Exam Narrative Exam Narrative: Morbidly obese. Pale skin and buccal mucosa. Mild tachypnea. Patient is on oxygen. Sitting up in chair. No JVD noted. Chest exam revealed crackles. Improved over the last 48 hours heart is regular. Abdomen is soft. Increased abdominal girth therefore her abdominal exam is inconclusive. No tenderness. Lower extremities +2 pitting edema. Function is very poor. Patient is unable to change position in bed. Able to move her legs sideways. Able to lift upper arms against gravity. Cognition is fairly preserved. Patient is able to understand conversation related to her health. Able to answer questions. Able to provide information. Able to engage. Constitutional Vital Signs, click to edit/add: Last Vital Signs Temp 97.9 F 05/24/25 08:39 Pulse 57 L 05/24/25 08:39 Resp 18 05/24/25 08:39 BP 179/78 H 05/24/25 08:39 Pulse Ox 90 L 05/24/25 08:39 O2 Del Method Room Air 05/24/25 08:39 O2 Flow Rate 0.5 05/21/25 09:37 FiO2 35 05/20/25 07:28 Progress Note: A&P Assessment and Plan (1) Hypoxemia: (2) Anemia, chronic disease: (3) AMS (altered mental status): (4) Fall: (5) Urinary tract infection: (6) Hypoglycemia: (7) Renal failure: (8) COVID-19: Plan Hypoglycemia Likely caused by patient taking insulin and GLP-1 in the setting of stage IV kidney failure Patient was started on D10. D10 had been discontinued overnight Avoid long-acting insulin. Continue sliding scale Blood sugar has been stable over the last 72 hours UTI. I started patient on ceftriaxone. Cultures came back E. coli that is resistant to ceftriaxone but sensitive to quinolones and tetracycline. Avoid quinolones due to the fact that patient is on amiodarone. I started patient on doxycycline Stage IV kidney failure. I reviewed her record from [place]. Chronic care. I resumed her diuretics to keep her in a euvolemic state. Acute COVID-19 infection Patient is not a candidate for the remdesivir or baricitinib I will start patient on oxygen supplementation and Decadron daily Anemia. Multifactorial patient reported that she had blood transfusion before. Patient is on Eliquis and Plavix Folate and iron deficiency. Anemia of chronic disease secondary to CKD. Hold meds at this time Check stool Hemoccult Hemoglobin dropped, status post 2 units of RBC transfusion Folic acid is low I would start patient on folic acid supplementation. I would also start patient on iron infusion as well as erythropoietin injection. The goal is to keep hemoglobin above 9. Patient may need to have a GI investigation but patient is requesting comfort care approach at this time. Resume Eliquis at 2.5 adjusted dose for kidney failure if her hemoglobin continues to be stable Lower extremities edema Anus ultrasound rule out DVT. Ultrasound is negative for DVT. Functional disability. Family stated that patient is unable to sit up or stand up on her own. Unable to change position in bed. Able to ambulate with a walker and two-person assist. Patient has been in and out of different longterm facilities. I was informed that the patient ran out of her skilled care due to patient reaching maximum improvement which is not a great. Patient does not want to go to any chcf. She wants to go back home with hospice care. We will discuss this further with her family and arrange for that. Reported history of cancer. Family reported the patient had biopsy at [place] a month ago. I was able to get the report from EGD and biopsy. EGD showed gastric mass. 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 Patient informed me and her family (brother, 3 granddaughters ) that she does not want to have any chemotherapy or surgery for the cancer. She wants to allow nature to take its course without cancer evaluation or tx. CHF Elevated BNP and fluid overload clinically Start gentle diuresis. Requested echocardiogram. Echocardiogram showed normal ejection fraction but positive for tricuspid regurg and mitral regurg Resume diuretics to keep her in euvolemic state Hypoxic respiratory failure secondary to CHF, fluid overload, renal failure and COVID-19 infection. Continue treatment as listed above. Chronic medical conditions not listed above, incidental findings seen on labs and imaging. These would need to be addressed. Could be addressed when time and condition are appropriate. Could be addressed in the outpatient setting by PCP collaboration with other needed outpatient providers. Overall patient has poor prognosis given her kidney disease, respiratory hypoxemia, heart failure and underlying cancer. Patient and family met with the hospice team last Saturday. Complicated issues related to her status and insurance coverage as well as home health support and needs. Patient wants to go home with hospice however she does not have much help and supervision at home other than her granddaughter who is mentally challenged I was told that patient had finished her skilled days and her [employer] insurance cut her off Family may not have financial resources to keep her at the nursing facility under private pay. Patient may not qualify to be admitted to the inpatient hospice unit for GIP type of care We will continue to work with the social work to discharge patient to a safe place. Continue comfort care approach as requested by patient and agreed on by family. (Brother, 3 granddaughters ) I was notified that patient has 2 sons who do not get involved in her care. Thus far patient is coherent, competent, has preserved cognition to understand conversation related to her health and able to make her own decision. Urinary Catheter Management Urinary Catheter Management Urethral: Cath placed during this visit: yes Urethral indwelling: No Insertion date: 05/20/25 Insertion time: 08:43
[2025-05-24] MEDS: DEXAMETHASONE 4 MG TABLET 6 MG PO (09:33)
[2025-05-24] MEDS: APIXABAN 5 MG TABLET 2.5 MG PO (09:33)
[2025-05-24] MEDS: ISOSORBIDE MONONITRATE 30 MG TAB.ER.24H PO (09:33)
[2025-05-24] MEDS: ALLOPURINOL 300 MG TABLET PO (09:34)
[2025-05-24] MEDS: ATORVASTATIN CALCIUM 40 MG TABLET 80 MG PO (09:34)
[2025-05-24] MEDS: FOLIC ACID 1 MG TABLET PO (09:34)
[2025-05-24] MEDS: AMIODARONE HCL 200 MG TABLET PO (09:34)
[2025-05-24] MEDS: PREGABALIN 75 MG CAPSULE PO ×2 (09:34→13:05)
[2025-05-24] MEDS: 0.9 % SODIUM CHLORIDE 250 ML 25 ML IV (10:06)
[2025-05-24] MEDS: IRON SUCROSE COMPLEX 200 MG in 0.9 % SODIUM CHLORIDE 100 ML 220 MG IV (10:06)
[2025-05-24] MEDS: DOXYCYCLINE HYCLATE 100 MG in 0.9 % SODIUM CHLORIDE 100 ML IV (10:53)
--- NOTE | 2025-05-24 12:05 | SWNOTE1 ---
Pt is ready for discharge today. SW stopped in and spoke with pt. She has voiced that she wants to return home. She stated her is home now as well. SW did ask if she would like [facility] services to come in as well. Pt is in agreement with [facility]. SW again explained that they will not be there 22/04 and asked if family will be with her in the home. She voiced she will have family in and out of the home. SW asked if we can call family to let them know discharge plans. Pt would like SW to call her son Robina. SW asked if he has been involved in her care? She stated he lives in [place] and owns his own business, but yes he does help. SW and pt attempted to call, no answer. SW asked if all family is in agreement with her going home. She did laugh and voiced not everyone, but this is what she wants to do. SW asked if we needed to call her grand daughter Jocelyn, she stated no. SW asked if we needed to set up transport? She stated no her son Robina will get her. Pt's son did call back and pt and SW spoke to Robina over the phone. He is ready for her to return home and did voice family will be in and out to check on her. He stated a family member lives in duplex out back and will check on her daily. He stated she does have everything she needs at home, walker, hospital bed, bedside commode. He again voiced family will take care of her. He is agreeable to hospice as well and is aware [facility] coming in. BELEN did speak with pt and Robina about completing HCPOA prior to discharge. They are in agreement. Robina did confirm he will transport her home with his wheelchair van. No further questions at this time. BELEN sent message to Stephanie at [facility] and she will meet pt at home to get her signed on. BELEN called and spoke with Yoli at [facility] office to updated her and will send dc paperwork once completed. Stephanie, nurse at hospice, would like son's number to call so she can confirm discharge time. SW to speak with pt and provide if pt is alright with this.
[2025-05-24] MEDS: AMLODIPINE BESYLATE 5 MG TABLET 2.5 MG PO (12:41)
[2025-05-24] MEDS: METOPROLOL SUCCINATE 25 MG TAB.ER.24H PO (12:41)
[2025-05-24] MEDS: TORSEMIDE 20 MG TABLET 40 MG PO (12:41)
--- NOTE | 2025-05-24 14:23 | SWNOTE1 ---
BELEN printed off dc med rec and progress note from today and provided to Stephanie from [facility]. She voiced that BELEN did not need to send to [place] office as she is the nurse on this case. Pt is not on oxygen at this time, but Stephanie did order it stat for at home in case it is needed, it will be delivered today.
--- NOTE | 2025-05-25 12:55 | PM.DS1 ---
DS: Providers Provider Date of admission: 05/20/25 10:18 Primary care physician: [facility] Consults: 05/20/25 Consult to Hospice Routine Reason for consultation: CAD, CKD, condition declining Consult to Inspector Experimental Assembly Routine Reason for consult:: Advanced Directives 05/20/25 12:44 Occupational Therapy Eval and Treat Routine Reason for consultation: weakness Physical Therapy Eval and Treat Routine Reason for consultation: WEAKNESS Anticipated date of discharge: 05/24/25 DS: Diagnosis Discharge Diagnosis (1) Hypoxemia: (2) Anemia, chronic disease: (3) AMS (altered mental status): (4) Fall: (5) Urinary tract infection: (6) Hypoglycemia: (7) Renal failure: (8) COVID-19: Plan As listed above and others that are not listed DS: Summary Hospital Course Hospital Course: Mrs. Caceres is a 80-year-old female who [facility] with altered mental status, shortness of breath and was found to have the following: Hypoglycemia Likely caused by patient taking insulin and GLP-1 in the setting of stage IV kidney failure Patient was started on D10. D10 had been discontinued overnight Avoid long-acting insulin. Continue sliding scale Blood sugar has been stable over the last 72 hours UTI. I started patient on ceftriaxone. Cultures came back E. coli that is resistant to ceftriaxone but sensitive to quinolones and tetracycline. Avoid quinolones due to the fact that patient is on amiodarone. I started patient on doxycycline Stage IV kidney failure. I reviewed her record from [place]. Chronic care. I resumed her diuretics to keep her in a euvolemic state. Acute COVID-19 infection Patient is not a candidate for the remdesivir or baricitinib I will start patient on oxygen supplementation and Decadron daily Anemia. Multifactorial patient reported that she had blood transfusion before. Patient is on Eliquis and Plavix Folate and iron deficiency. Anemia of chronic disease secondary to CKD. Held meds for 3 days Check stool Hemoccult Hemoglobin dropped, status post 2 units of RBC transfusion Folic acid is low I would start patient on folic acid supplementation. I would also start patient on iron infusion as well as erythropoietin injection. The goal is to keep hemoglobin above 9. Patient may need to have a GI investigation but patient is requesting comfort care approach at this time. Resume Eliquis at 2.5 adjusted dose for kidney failure if her hemoglobin continues to be stable Lower extremities edema Anus ultrasound rule out DVT. Ultrasound is negative for DVT. Functional disability. Family stated that patient is unable to sit up or stand up on her own. Unable to change position in bed. Able to ambulate with a walker and two-person assist. Patient has been in and out of different intermediate facilities. I was informed that the patient ran out of her skilled care due to patient reaching maximum improvement which is not a great. Patient does not want to go to any prison. She wants to go back home with hospice care. We will discuss this further with her family and arrange for that. Reported history of cancer. Family reported the patient had biopsy at [place] a month ago. I was able to get the report from EGD and biopsy. EGD showed gastric mass. 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 Patient informed me and her family (brother, 3 granddaughters ) that she does not want to have any chemotherapy or surgery for the cancer. She wants to allow nature to take its course without cancer evaluation or tx. CHF Elevated BNP and fluid overload clinically Start gentle diuresis. Requested echocardiogram. Echocardiogram showed normal ejection fraction but positive for tricuspid regurg and mitral regurg Resume diuretics to keep her in euvolemic state Hypoxic respiratory failure secondary to CHF, fluid overload, renal failure and COVID-19 infection. Continue treatment as listed above. Chronic medical conditions not listed above, incidental findings seen on labs and imaging. These would need to be addressed. Could be addressed when time and condition are appropriate. Could be addressed in the outpatient setting by PCP collaboration with other needed outpatient providers. Overall patient has poor prognosis given her kidney disease, respiratory hypoxemia, heart failure and underlying cancer. Patient declined to go to the prison for therapy. Patient declined to receive any additional acute or aggressive medical care. She does not want any treatment for her gastric adenocarcinoma. Patient requested comfort care approach and enrollment into the hospice program. Her family including her son, brother and 3 granddaughters are all in agreement to honor her wishes and provide her with the comfort and dignity that she needs at the last phase of her life. Patient was discharged home with hospice care. Time Spent with Patient Time attestation: Total time spent providing and/or coordinating discharge services: Exam Constitutional Vital Signs, click to edit/add: Last Vital Signs Temp 97.9 F 05/24/25 08:39 Pulse 65 05/24/25 13:45 Resp 18 05/24/25 08:39 BP 129/65 05/24/25 12:49 Pulse Ox 90 L 05/24/25 12:49 O2 Del Method Room Air 05/24/25 12:49 O2 Flow Rate 0.5 05/21/25 09:37 FiO2 35 05/20/25 07:28 DS: Data Data Completed and Pending Labs on day of discharge: Preliminary micro results at discharge 05/20/25 08:45 Urine Culture - Preliminary Urine,Clean Catch Pending - Specimen sent to [facility] Discharge Plan Discharge Disposition: Hospice - Home Discharge Medications: New doxycycline monohydrate 100 mg Capsule 100 mg PO BID Qty: 10 0RF folic acid 1 mg Tablet 1 mg PO DAILY Qty: 30 0RF metoprolol succinate 25 mg Tablet Extended Release 24 Hr 25 mg PO QD Qty: 30 0RF amlodipine 2.5 mg tablet 2.5 mg PO DAILY Qty: 30 0RF Eliquis 2.5 mg tablet 2.5 mg PO BID Qty: 60 0RF dexamethasone 6 mg tablet 6 mg PO DAILY Qty: 5 0RF allopurinol 200 mg tablet 200 mg PO DAILY Qty: 30 0RF torsemide 20 mg tablet 20 mg PO DAILY Qty: 30 0RF Continued atorvastatin 80 mg tablet 80 mg PO DAILY Qty: 30 0RF amiodarone 200 mg tablet 200 mg PO Q12H Qty: 60 0RF isosorbide mononitrate 30 mg tablet extended release 24 hr 30 mg PO DAILY Qty: 30 0RF tamsulosin [Flomax] 0.4 mg capsule 0.4 mg PO BEDTIME Qty: 30 0RF pantoprazole 40 mg tablet,delayed release (DR/EC) 40 mg PO QDAY Qty: 30 0RF ferrous sulfate [FeroSul] 325 mg (65 mg iron) tablet 325 mg PO DAILY Qty: 30 0RF acetaminophen 325 mg capsule 650 mg PO Q6H PRN (Reason: pain) Qty: 50 0RF Discontinued allopurinol 300 mg tablet 300 mg PO DAILY Eliquis 5 mg tablet 5 mg PO Q12H clopidogrel 75 mg tablet 75 mg PO DAILY metoprolol tartrate 25 mg tablet 25 mg PO Q12H polyethylene glycol 3350 [ClearLax] 17 gram/dose powder 17 g PO QDAY PRN (Reason: constipation) Ozempic 0.25 mg or 0.5 mg(2 mg/1.5 mL) pen injector 0.5 mg subcut QWEEK Rx Instructions: for 4 weeks pregabalin 75 mg capsule 75 mg PO BID@0800,1400 insulin degludec [Tresiba FlexTouch U-100] 100 unit/mL (3 mL) insulin pen 20 unit subcut BEDTIME cyanocobalamin (vitamin B-12) 1,000 mcg capsule 1,000 mcg PO DAILY insulin lispro 100 unit/mL cartridge 2 - 10 unit subcut ACHS Rx Instructions: 151-200- 2 UNITS, 201-250 4 UNITS, 251-300 6 UNITS, 301-350 8 UNITS, 351-400 10 UNITS mupirocin 2 % ointment 1 applic TOPICAL BID pregabalin [Lyrica] 75 mg capsule 150 mg PO .QHS torsemide 10 mg tablet 10 mg PO DAILY Activity: increase activity as tolerated Diet: advance to your usual diet Print Language: Liberian Patient Instructions: Heart Failure (DC), COVID-19 (Coronavirus Disease 2019) ([place]) Fuel Conversion Technician/Private Equity Associate Instructions: Discharge home with [facility]. [facility] did order oxygen for at home. Phone number for [facility] is [phone] Forms: Portal Instructions Discharge Date/Time: 05/24/25 15:40
--- NOTE | 2025-05-27 12:50 | CM.NOTE ---
Final culture report faxed to Dr. Lockhart with susceptibility.
== END 2025-05-24 15:40 | disposition hospice, home (50) | DRG 291 ==
LOC: ER 09:33 → MS 10:22
PROVIDERS: Admitting Provider Internal Medicine; Emergency Provider Emergency Medicine; Visit Provider Internal Medicine
DX: I50.9 Heart failure, unspecified (principal); J96.91 Respiratory failure, unspecified with hypoxia; U07.1 COVID-19; N39.0 Urinary tract infection, site not specified; C16.9 Malignant neoplasm of stomach, unspecified; N18.4 Chronic kidney disease, stage 4 (severe); Z79.4 Long term (current) use of insulin; Z79.85 Long-term (current) use of injectable non-insulin antidiabetic drugs; E11.22 Type 2 diabetes mellitus with diabetic chronic kidney disease; Z79.01 Long term (current) use of anticoagulants; Z79.02 Long term (current) use of antithrombotics/antiplatelets; R41.82 Altered mental status, unspecified; Z91.81 History of falling; E11.42 Type 2 diabetes mellitus with diabetic polyneuropathy; M81.0 Age-related osteoporosis without current pathological fracture; I48.91 Unspecified atrial fibrillation; Z95.5 Presence of coronary angioplasty implant and graft; Z90.49 Acquired absence of other specified parts of digestive tract; Z90.710 Acquired absence of both cervix and uterus; E11.649 Type 2 diabetes mellitus with hypoglycemia without coma; T38.3X5A Adverse effect of insulin and oral hypoglycemic [antidiabetic] drugs, initial encounter; Z79.899 Other long term (current) drug therapy; Z66 Do not resuscitate; E66.01 Morbid (severe) obesity due to excess calories; D63.1 Anemia in chronic kidney disease; D50.9 Iron deficiency anemia, unspecified; I08.1 Rheumatic disorders of both mitral and tricuspid valves; E53.8 Deficiency of other specified B group vitamins; Z68.38 Body mass index [BMI] 38.0-38.9, adult; B96.20 Unspecified Escherichia coli [E. coli] as the cause of diseases classified elsewhere; Z87.891 Personal history of nicotine dependence
CPT/HCPCS: 36415; 36430; 36600; 51702; 51798; 70450; 71045; 72125; 74176; 80048; 80053; 81001; 82607; 82728; 82746; 82805; 82948; 83036; 83540; 83550; 83605; 83735; 83880; 84484; 85014; 85018; 85025; 85027; 85610; 86850; 86900; 86901; 86923; 87086; 87088; 87186; 87811; 93005; 93306; 93970; 94660; 94761; 96361; 96374; 96375; 97162; 97165; 97530; 97535; 99285; G0328; J0696; J0885; J1100; J1756; J1938; J8540; P9016; P9046